=== PATIENT | male | born 1940 | race Caucasian/White ===

== ENCOUNTER 2016-03-21 13:17 | Observation (INO) | payer OTHER ==
[~2016-03-21] VITALS: Ht 167.6 cm; Wt 100.5 kg
[~2016-03-21 13:17] MED LIST: CARD240C6 PO; CLON.1 PO; DILA100C PO; FURO1TAB93 OR; GLIP5TAB8 PO; LIPI80TA16 PO; LISI-363 PO; METO200T3 PO; OMPR20CCR PO; RIVA20 PO; SUCR1TAB PO
[2016-03-21 13:35] VITALS: BP 110/65; PULSE 64; RESP 20; TEMP 97.9; O2SAT 97
[2016-03-21 15:35] VITALS: BP 121/73; PULSE 64; RESP 18; O2SAT 99
[2016-03-21] MEDS ORDERED: XARE20TA PO (15:50)
[2016-03-21] MEDS ORDERED: ATOR1TAB18 PO (15:50)
[2016-03-21] MEDS ORDERED: GLIP10TA6 PO (15:50)
[2016-03-21] MEDS ORDERED: FURO1TAB60 PO (15:50)
[2016-03-21] MEDS ORDERED: CARD240C6 PO (15:50)
[2016-03-21] MEDS ORDERED: METO200T3 PO (15:50)
[2016-03-21] MEDS ORDERED: LISI-515 PO (15:50)
[2016-03-21] MEDS ORDERED: CLON0.1T PO (15:50)
[2016-03-21] MEDS ORDERED: INSU100V3 SQ (15:50)
[2016-03-21] MEDS ORDERED: DILA100C PO (15:50)
--- NOTE | 2016-03-21 16:00 | PD ---
HPI Chief Complaint: Cardiac Complaint Time Seen by Provider: 15:49 Travel History International Travel<30 days: No Contact w/Intl Traveler<30days: No Traveled to known affect area: No History of Present Illness HPI This 75-year-old male is complaining of ankle edema and shortness of breath. He has been seeing a urologist for some blood in his urine. Today he saw the urologist and the urologist noted that the patient had considerable swelling of the ankles. She recommended that the patient should be evaluated so he has presented here. The patient has a history of cardiomyopathy and congestive heart failure. He has had multiple ablations flutter fibrillation. He says that he been in fibrillation again since just before . He was scheduled to have another ablation with Dr. Myrick on 19 March but was canceled He has noted dyspnea on exertion and over the last 2 weeks she has had increasing swelling in his ankles he has not had any chest pain. He does have a history of diabetes and his doctor recently and his doctor started him on insulin shots just today. 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 Patient is on metoprolol and Lasix. He is on Xarelto for his atrial fibrillation PFSH Past Medical History Hx Anticoagulant Therapy: Yes Arthritis: Yes (thumbs;knee caps) Asthma: No Autoimmune Disease: No Blood Disorders: No Anxiety: No Depression: No Heart Rhythm Problems: Yes Cancer: No Cardiac Catheterization: Yes (STENT X 3 CAN'T REMEMBER DATE.) Cardiovascular Problems: Yes High Cholesterol: Yes Chemotherapy: No Chest Pain: No Congestive Heart Failure: No COPD: No Cerebrovascular Accident: Yes (CVA) Diabetes: Yes Patient Takes Glucophage: No Diminished Hearing: Yes (WEARS RIGHT HEARING AID) Endocrine: Yes Gastrointestinal Disorders: Yes (GALLSTONES) GERD: Yes Glaucoma: No Genitourinary: No Headaches: No Hepatitis: No Hiatal Hernia: No Hypertension: Yes Immune Disorder: No Implanted Vascular Access Dvce: Yes Kidney Stones: No Musculoskeletal: Yes Neurologic: No Psychiatric: No Reproductive: No Respiratory: No Immunizations Current: Yes Migraines: No Myocardial Infarction: Yes Radiation Therapy: No Renal Failure: No Seizures: Yes Sickle Cell Disease: No Sleep Apnea: No Thyroid Disease: No Ulcer: No Influenza Vaccination: Yes PNEUMOCCOCAL Vaccine (Year): 1 Past Surgical History Abdominal Surgery: Yes (cholecystectomy) AICD: Yes Appendectomy: No Arteriovenous Shunt: No Cardiac Surgery: Yes (pacemaker;defibillator;stents) Cholecystectomy: Yes Coronary Stent: Yes (1995 /pacer placed 2 yr ago) Ear Surgery: No Endocrine Surgery: No Eye Surgery: Yes (right eye detached retina repair;right eye cataract removal) Genitourinary Surgery: Yes (penile implantation and removal) Gynecologic Surgery: No Insulin Pump: No Joint Replacement: No Neurologic Surgery: Yes (BRAIN SURGERY FOR ABSCESS 1987) Oral Surgery: No Pacemaker: Yes Thoracic Surgery: No Other Surgery: Yes (BRAIN ABSCESS 1987) Social History Alcohol Use: Yes (occ) Tobacco Use: No Substance Use: No Allergies-Medications (Allergen,Severity, Reaction): Coded Allergies: No Known Allergies (Verified , 03/21/16) Reported Meds & Prescriptions Reported Meds & Active Scripts Active Reported Clonidine (Clonidine HCl) 0.1 Mg Tab 0.1 Mg PO BID Dilantin (Phenytoin Extended) 100 Mg Cap 500 Mg PO BID Humulin N Inj (Insulin Human NPH) 1,000 Unit/10 Ml Vial 5 Units SQ BID Xarelto (Rivaroxaban) 20 Mg Tab 20 Mg PO DAILY Metoprolol Succinate ER 24 HR (Metoprolol Succinate) 200 Mg Tab 200 Mg PO DAILY Lisinopril 20 Mg Tab 20 Mg PO DAILY Glipizide 10 Mg Tab 10 Mg PO BIDAC Take 30 minutes before a meal Lasix (Furosemide) 40 Mg Tab 40 Mg PO DAILY Cardizem CD 24 HR (Diltiazem CD 24 HR) 240 Mg Caper 240 Mg PO DAILY Atorvastatin (Atorvastatin Calcium) 80 Mg Tab 80 Mg PO HS Review of Systems General / Constitutional: No: Fever, Chills Eyes: No: Diploplia, Blurred Vision HENT: No: Headaches, Vertigo Cardiovascular: Positive: Irregular Rhythm, No: Chest Pain or Discomfort Respiratory: Positive: Shortness of Breath Gastrointestinal: No: Vomiting, Diarrhea Physical Exam Narrative GENERAL: Well-developed male SKIN: Warm and dry. HEAD: Atraumatic. Normocephalic. EYES: Pupils equal and round. No scleral icterus. No injection or drainage. ENT: No nasal bleeding or discharge. Mucous membranes pink and moist. NECK: Trachea midline. No JVD. CARDIOVASCULAR: Regular rate and rhythm. No murmur appreciated. RESPIRATORY: No accessory muscle use. He has bibasilar rales GASTROINTESTINAL: Abdomen soft, non-tender, nondistended. Hepatic and splenic margins not palpable. MUSCULOSKELETAL: No obvious deformities. No clubbing. No cyanosis. Bilateral pedal edema NEUROLOGICAL: Awake and alert. No obvious cranial nerve deficits. Motor grossly within normal limits. Normal speech. PSYCHIATRIC: Appropriate mood and affect; insight and judgment normal. Data Data Last Documented VS Vital Signs Date Time Temp Pulse Resp B/P Pulse Ox O2 Delivery O2 Flow Rate FiO2 03/21/16 15:35 64 18 121/73 99 Room Air 03/21/16 13:35 97.9 Orders Electrocardiogram (03/21/16 15:49) Complete Blood Count With Diff (03/21/16 15:49) Comprehensive Metabolic Panel (03/21/16 15:49) B-Type Natriuretic Peptide (03/21/16 15:49) Urinalysis - C+S If Indicated (03/21/16 15:49) Chest, Single Ap (03/21/16 15:49) MDM Medical Decision Making Medical Screen Exam Complete: Yes Emergency Medical Condition: Yes Medical Record Reviewed: Yes Differential Diagnosis Differential includes CHF, edema, dysrhythmia Narrative Course X-ray and lab work are pending at this time. I suspect patient will need adjustment of his diuretic dose Timothy Kent MD Mar 21, 2016 16:00
[2016-03-21 16:13] LABS: AUTOMATED NEUTROPHIL # 5.5 TH/MM3 (1.8-7.7); BASOPHIL % 0.3 % (0.0-2.0); EOSINOPHIL # 0.1 TH/MM3 (0-0.4); EOSINOPHIL % 1.2 % (0.0-4.0); HEMATOCRIT 33.9 % (39.0-51.0); HEMO FLAGS DIFF FINAL; LYMPH % 17.6 % (9.0-44.0); LYMPHOCYTE # 1.3 TH/MM3 (1.0-4.8); MEAN CORPUSCULAR HEMOGLOBIN 25.9 PG (27.0-34.0); MEAN CORPUSCULAR HGB CONC 32.3 % (32.0-36.0); MONO % 9.6 % (0.0-8.0); NEUT % 71.3 % (16.0-70.0); PLATELET COUNT 142 TH/MM3 (150-450); RED BLOOD COUNT 4.23 MIL/MM3 (4.50-5.90); RED CELL DISTRIBUTION WIDTH 17.6 % (11.6-17.2); WHITE BLOOD COUNT 7.6 TH/MM3 (4.0-11.0)
[2016-03-21 16:20] LABS: CHLORIDE 103 MEQ/L (98-107); POTASSIUM 4.3 MEQ/L (3.5-5.1); SODIUM (NA) 141 MEQ/L (136-145)
[2016-03-21 16:24] LABS: ANION GAP 7 MEQ/L (5-15); BICARBONATE 30.9 MEQ/L (21.0-32.0); BLOOD UREA NITROGEN 19 MG/DL (7-18)
[2016-03-21 16:27] LABS: ALT (GPT) 41 U/L (12-78); AST (GOT) 32 U/L (15-37); GLOMERULAR FILTRATION RATE 45 ML/MIN (>89)
[2016-03-21 16:29] LABS: TOTAL BILIRUBIN ADULT 0.5 MG/DL (0.2-1.0)
[2016-03-21 16:30] LABS: ALKALINE PHOSPHATASE 104 U/L (45-117)
--- NOTE | 2016-03-21 16:38 | RADHPO ---
EXAM DATE/TIME: 03/21/2016 16:13 [facility] COMPARISON: CHEST SINGLE AP, March 21, 2013, 19:56. INDICATIONS : Patient states shortness of breath. MEDICAL HISTORY : Hypercholesterolemia. Diabetes mellitus type II. Cardiovascular disease. A-Fib SURGICAL HISTORY : Pacemaker. ENCOUNTER: Initial ACUITY: 1 day PAIN SCORE: 5/10 LOCATION: Bilateral chest FINDINGS: The heart is enlarged. There is a transvenous pacer in good position. There is mild blunting of the c ardiophrenic sulcus on the left. This is stable compared to previous exam. The lungs are otherwise cl ear. The bony structures are intact. CONCLUSION: 1. Mild cardiomegaly. No acute abnormality. Damián Roberts MD on March 21, 2016 at 16:36 Board Certified Radiologist. This report was verified electronically.
--- NOTE | 2016-03-21 17:40 | PD ---
Physical Exam Narrative Patient signed out to me by Dr. Kent to follow-up labs and disposition. Please see his note for complete history and physical details. Briefly, patient has noticed an increase in swelling of his legs as well as his dyspnea on exertion for the past week. He tried to get into see his primary doctor today, but was unable to and was told to come to the emergency department. He has extensive cardiac history with cardiomyopathy and an AICD in place. He reports compliance with his medications, but does not feel they're working. Exam shows large edema of the bilateral lower extremities. Data Data Last Documented VS Vital Signs Date Time Temp Pulse Resp B/P Pulse Ox O2 Delivery O2 Flow Rate FiO2 03/21/16 15:35 64 18 121/73 99 Room Air 03/21/16 13:35 97.9 Orders Electrocardiogram (03/21/16 15:49) Complete Blood Count With Diff (03/21/16 15:49) Comprehensive Metabolic Panel (03/21/16 15:49) B-Type Natriuretic Peptide (03/21/16 15:49) Urinalysis - C+S If Indicated (03/21/16 15:49) Chest, Single Ap (03/21/16 15:49) Furosemide Inj (Lasix Inj) (03/21/16 17:45) Admit Order (Ed Use Only) (03/21/16 ) Place In Observation (03/21/16 ) Vital Signs (Adult) Q4H (03/21/16 17:46) Activity Oob With Assistance (03/21/16 17:46) ^ Wildlife Veterinarian / Telemetry .CONTINUOUS (03/21/16 17:46) Intake + Output BONNIE.QSHIFT (03/21/16 17:46) Sodium Chloride 0.9% Flush (Ns Flush) (03/21/16 18:00) Sodium Chloride 0.9% Flush (Ns Flush) (03/21/16 21:00) Acetaminophen (Tylenol) (03/21/16 18:00) Ondansetron Inj (Zofran Inj) (03/21/16 18:00) Magnesium Hydroxide Liq (Milk Of Magnesi (03/21/16 18:00) Basic Metabolic Panel (Bmp) (03/22/16 06:00) Pt Request For Service (03/21/16 17:46) Scd Bilateral/Knee High BONNIE.BID (03/21/16 17:46) Braxton Bilateral/Knee High BONNIE.QSHIFT (03/21/16 17:46) Naloxone Inj (Narcan Inj) (03/21/16 18:00) Phenytoin (Dilantin) (03/21/16 16:00) Labs Laboratory Tests Test 03/21/16 16:00 White Blood Count 7.6 TH/MM3 Red Blood Count 4.23 MIL/MM3 Hemoglobin 10.9 GM/DL Hematocrit 33.9 % Mean Corpuscular Volume 80.0 FL Mean Corpuscular Hemoglobin 25.9 PG Mean Corpuscular Hemoglobin 32.3 % Concent Red Cell Distribution Width 17.6 % Platelet Count 142 TH/MM3 Mean Platelet Volume 8.3 FL Neutrophils (%) (Auto) 71.3 % Lymphocytes (%) (Auto) 17.6 % Monocytes (%) (Auto) 9.6 % Eosinophils (%) (Auto) 1.2 % Basophils (%) (Auto) 0.3 % Neutrophils # (Auto) 5.5 TH/MM3 Lymphocytes # (Auto) 1.3 TH/MM3 Monocytes # (Auto) 0.7 TH/MM3 Eosinophils # (Auto) 0.1 TH/MM3 Basophils # (Auto) 0.0 TH/MM3 CBC Comment DIFF FINAL Differential Comment Sodium Level 141 MEQ/L Potassium Level 4.3 MEQ/L Chloride Level 103 MEQ/L Carbon Dioxide Level 30.9 MEQ/L Anion Gap 7 MEQ/L Blood Urea Nitrogen 19 MG/DL Creatinine 1.50 MG/DL Estimat Glomerular Filtration 45 ML/MIN Rate Random Glucose 133 MG/DL Calcium Level 8.7 MG/DL Total Bilirubin 0.5 MG/DL Aspartate Amino Transf 32 U/L (AST/SGOT) Alanine Aminotransferase 41 U/L (ALT/SGPT) Alkaline Phosphatase 104 U/L B-Type Natriuretic Peptide 274 PG/ML Total Protein 6.9 GM/DL Albumin 3.5 GM/DL Phenytoin (Dilantin) Level 0.7 MCG/ML MDM Supervised Visit with KATERYNA: No Narrative Course Chest x-ray shows cardiomegaly. BMP essentially elevated in the 200s. Based on patient's symptoms of increased swelling of his legs as well as shortness of breath on exertion, I'm concerned he is having a CHF exacerbation. His creatinine is elevated to 1.5. This makes diuresis difficult. I believe the patient would benefit with an observation stay to figure out the best course of diuresis and kidney protection for him. Patient is agreeable to this. Patient placed in observation. Diagnosis Primary Impression: CHF exacerbation Qualified Code: I50.23 - Acute on chronic systolic congestive heart failure Additional Impression: NARCISO (acute kidney injury) Admitting Information Admitting Physician Requests: Observation Vickie Maciel MD Mar 21, 2016 17:40
[2016-03-21] MEDS ORDERED: FUROSEMIDE 20 MG/2 ML VIAL IV PUSH ONE (17:45)
[2016-03-21] MEDS ORDERED: DEXTROSE 50% IN WATER 50 ML VIAL(D50) IV PUSH PRN (18:00)
[2016-03-21] MEDS ORDERED: SODIUM CHLORIDE 0.9% FLUSH 5 ML FLUSH FLUSH PRN (18:00)
[2016-03-21] MEDS ORDERED: ONDANSETRON HCL 4 MG/2 ML VIAL IVP PRN (18:00)
[2016-03-21] MEDS ORDERED: MAGNESIUM HYDROXIDE SUSP 30 ML CUP PO PRN (18:00)
[2016-03-21] MEDS ORDERED: NALOXONE HCL 0.4 MG/ML AMP IV PRN (18:00)
[2016-03-21] MEDS ORDERED: ACETAMINOPHEN 325 MG TAB PO PRN (18:00)
[2016-03-21] MEDS ORDERED: GLUCAGON 1 MG/ML VIAL OTHER PRN (18:00)
[2016-03-21 18:10] VITALS: BP 116/67; PULSE 60; RESP 18; O2SAT 98
[2016-03-21 20:00] VITALS: BP 116/70; PULSE 60; RESP 20; TEMP 96.3; O2SAT 96
[2016-03-21] MEDS: INSULIN ASPART SUPPLEMENTAL SCALE SQ SCH (20:41)
[2016-03-21] MEDS: cloNIDine HCL 0.1 MG TAB PO SCH (20:43)
[2016-03-21] MEDS: PHENYTOIN SODIUM 100 MG CAP PO SCH (20:43)
[2016-03-21] MEDS: SODIUM CHLORIDE 0.9% FLUSH 5 ML FLUSH FLUSH SCH (20:44)
[2016-03-21 20:47] LABS: BLOOD, URINE NEG (NEG); GLUCOSE,URINE NEG (NEG); KETONE, URINE NEG (NEG); NITRITE,URINE NEG (NEG)
[2016-03-21 20:52] LABS: COMMENT (UR) CULT NOT INDICATED; CULTURE IF INDICATED CULT NOT INDICATED; RBC, URINE 0-2 /hpf (0-3); SQUAMOUS EPITHELIAL CELL URINE 0-5 /hpf (0-5); URINE COLOR YELLOW (YELLW/STRAW); WBC, URINE 0-2 /hpf (0-5)
[2016-03-21] MEDS ORDERED: ATORVASTATIN 40 MG TAB PO SCH (21:00)
[2016-03-22] VITALS: BP 116/75; PULSE 63; RESP 20; TEMP 95.9; O2SAT 99
[2016-03-22 04:00] VITALS: BP 116/72; PULSE 60; RESP 20; TEMP 96.3; O2SAT 97
[2016-03-22 05:40] LABS: POTASSIUM 4.3 MEQ/L (3.5-5.1)
[2016-03-22 05:45] LABS: BICARBONATE 30.7 MEQ/L (21.0-32.0)
[2016-03-22] MEDS: INSULIN ASPART SUPPLEMENTAL SCALE SQ SCH ×2 (06:13→11:33)
[2016-03-22 08:00] VITALS: BP 129/70; PULSE 59; PULSE 60; RESP 18; TEMP 97.8; O2SAT 97
[2016-03-22] MEDS ORDERED: RIVAROXABAN 20 MG TAB PO SCH (09:00)
[2016-03-22] MEDS ORDERED: LISINOPRIL 20 MG TAB PO SCH (09:00)
[2016-03-22] MEDS ORDERED: FUROSEMIDE 40 MG TAB PO SCH (09:00)
[2016-03-22] MEDS ORDERED: METOPROLOL SUCCINATE 50 MG EXTENDED RELEASE TAB PO SCH (09:00)
[2016-03-22] MEDS ORDERED: DILTIAZEM-CD 240 MG CAP ER PO SCH (09:00)
[2016-03-22] MEDS: PHENYTOIN SODIUM 100 MG CAP PO SCH (09:27)
[2016-03-22] MEDS: cloNIDine HCL 0.1 MG TAB PO SCH (09:27)
[2016-03-22] MEDS: SODIUM CHLORIDE 0.9% FLUSH 5 ML FLUSH FLUSH SCH (09:30)
[2016-03-22] MEDS ORDERED: METOLAZONE 5 MG TAB PO ONE (10:15)
[2016-03-22] MEDS ORDERED: FUROSEMIDE 40 MG/4 ML VIAL IV PUSH ONE (10:15)
[2016-03-22] MEDS ORDERED: METOLAZONE 2.5 MG TAB PO ONE (10:15)
--- NOTE | 2016-03-22 10:58 | HHI.HP ---
[facility] Teja Beach Do, MD Admission Diagnosis CHF exacerbation Diagnoses: Travel History International Travel<30 Days: No Contact w/Intl Traveler <30 Da: No Traveled to Known Affected Are: No History of Present Illness This is a pleasant 75-year-old male with past medical history coronary artery disease and CHF who is followed by Dr. Echavarria. He states over the past week he said increasing pedal edema and that over the past several days he's noticed that he gets dyspneic with walking long distances. For this reason he came to the ER. The patient takes Lasix 40 mg daily and states he has been compliant with that. However he states that he drinks 7 bottles of water a day and does not weigh himself daily. He does eat a low- salt diet. The patient received a small amount of IV Lasix 20 mg in the ER and this morning he states he feels back to baseline. Of note his chest x-ray showed no evidence of pulmonary edema. The patient does not use KASHMIR hose or elevate his legs. 10 point review of systems otherwise negative. Past Family Social History Past Medical History Diverticulitis Coronary artery disease Atrial fibrillation Diabetes mellitus type 2 Hyperlipidemia History of brain abscess status post craniotomy CHF Past Surgical History Craniotomy, pacemaker, right eye surgery, cholecystectomy, ablation 2, cardiac stents 6 Reported Medications Allergies Coded Allergies Type Severity Reaction Last Updated Verified No Known Allergies 03/21/16 Yes Active Scripts Medications Dose Route/Sig Days Date Category Dose Instructions Clonidine (Clonidine HCl) 0.1 Mg Tab 0.1 Mg PO BID 03/21/16 Reported Dilantin (Phenytoin Extended) 100 Mg Cap 500 Mg PO BID 03/21/16 Reported Humulin N Inj (Insulin Human NPH) 1,000 Unit/10 Ml Vial 5 Units SQ BID 03/21/16 Reported Xarelto (Rivaroxaban) 20 Mg Tab 20 Mg PO DAILY 03/21/16 Reported Metoprolol Succinate ER 24 HR (Metoprolol Succinate) 200 Mg Tab 200 Mg PO DAILY 03/21/16 Reported Lisinopril 20 Mg Tab 20 Mg PO DAILY 03/21/16 Reported Glipizide 10 Mg Tab 10 Mg PO BIDAC 03/21/16 Reported Take 30 minutes before a meal Lasix (Furosemide) 40 Mg Tab 40 Mg PO DAILY 03/21/16 Reported Cardizem CD 24 HR (Diltiazem CD 24 HR) 240 Mg Caper 240 Mg PO DAILY 03/21/16 Reported Atorvastatin (Atorvastatin Calcium) 80 Mg Tab 80 Mg PO HS 03/21/16 Reported Allergies: Coded Allergies: No Known Allergies (Verified , 03/21/16) Family History Reviewed and noncontributory Social History No alcohol tobacco or current drug use Physical Exam Vital Signs Vital Signs Date Time Temp Pulse Resp B/P Pulse Ox O2 Delivery O2 Flow Rate FiO2 03/22/16 08:00 97.8 59 18 129/70 97 03/22/16 08:00 60 03/22/16 04:00 96.3 60 20 116/72 97 03/22/16 00:00 95.9 63 20 116/75 99 03/21/16 20:00 60 03/21/16 20:00 96.3 60 20 116/70 96 03/21/16 18:10 60 18 116/67 98 Room Air 03/21/16 15:35 64 18 121/73 99 Room Air 03/21/16 15:35 99 Room Air 03/21/16 13:35 97.9 64 20 110/65 97 Physical Exam GENERAL: Well-nourished, well-developed very pleasant male patient. SKIN: Warm and dry. HEAD: Normocephalic. EYES: No scleral icterus. No injection or drainage. NECK: Supple, trachea midline. No JVD or lymphadenopathy. CARDIOVASCULAR: Regular rate and rhythm without murmurs, gallops, or rubs. RESPIRATORY: Breath sounds equal bilaterally. No accessory muscle use. GASTROINTESTINAL: Abdomen soft, non-tender, nondistended. EXTREMITIES: 1+ pedal edema edema. NEUROLOGICAL: Awake, alert, and oriented x 3. Non-focal. Laboratory Laboratory Tests Test 03/21/16 03/21/16 03/22/16 16:00 20:15 05:08 White Blood Count 7.6 Red Blood Count 4.23 Hemoglobin 10.9 Hematocrit 33.9 Mean Corpuscular Volume 80.0 Mean Corpuscular Hemoglobin 25.9 Mean Corpuscular Hemoglobin 32.3 Concent Red Cell Distribution Width 17.6 Platelet Count 142 Mean Platelet Volume 8.3 Neutrophils (%) (Auto) 71.3 Lymphocytes (%) (Auto) 17.6 Monocytes (%) (Auto) 9.6 Eosinophils (%) (Auto) 1.2 Basophils (%) (Auto) 0.3 Neutrophils # (Auto) 5.5 Lymphocytes # (Auto) 1.3 Monocytes # (Auto) 0.7 Eosinophils # (Auto) 0.1 Basophils # (Auto) 0.0 CBC Comment DIFF FINAL Differential Comment Sodium Level 141 141 Potassium Level 4.3 4.3 Chloride Level 103 102 Carbon Dioxide Level 30.9 30.7 Anion Gap 7 8 Blood Urea Nitrogen 19 19 Creatinine 1.50 1.30 Estimat Glomerular Filtration 45 54 Rate Random Glucose 133 118 Calcium Level 8.7 8.6 Total Bilirubin 0.5 Aspartate Amino Transf 32 (AST/SGOT) Alanine Aminotransferase 41 (ALT/SGPT) Alkaline Phosphatase 104 B-Type Natriuretic Peptide 274 Total Protein 6.9 Albumin 3.5 Phenytoin (Dilantin) Level 0.7 Urine Color YELLOW Urine Turbidity CLEAR Urine pH 6.0 Urine Specific [place] 1.013 Urine Protein NEG Urine Glucose (UA) NEG Urine Ketones NEG Urine Occult Blood NEG Urine Nitrite NEG Urine Bilirubin NEG Urine Leukocyte Esterase NEG Urine RBC 0-2 Urine WBC 0-2 Urine Squamous Epithelial 0-5 Cells Urine Bacteria NONE Microscopic Urinalysis Comment CULT NOT INDICATED Result Diagram: 03/21/16 1600 03/22/16 0508 Assessment and Plan Assessment and Plan CHF with mild exacerbation. Patient is not compliant with fluid restriction or wearing KASHMIR hose. He's received small amount of IV Lasix and is stable on room air. Chest x-ray is clear. Patient was counseled on fluid restricting to less than 60 ounces per day, low-salt diet, wearing KASHMIR hose, weighing himself daily. Patient is instructed to follow-up with his television repairman Dr. Echavarria in next week. The patient states he is supposed to have an ablation in the next couple of weeks with Dr. Fay is well. For the rest of his chronic medical conditions he will continue home medications. Diverticulitis Coronary artery disease Atrial fibrillation Diabetes mellitus type 2 Hyperlipidemia History of brain abscess status post craniotomy Yudith Forrester MD Mar 22, 2016 10:58
[2016-03-22 12:00] VITALS: BP 100/71; PULSE 60; RESP 18; TEMP 97; O2SAT 97
--- NOTE | 2016-03-22 15:22 | EKG ---
Date Performed: 03/21/2016 Time Performed: 15:44:56 PTAGE: 75 years EKG: Ectopic atrial rhythm RBBB with left anterior fascicular block Nonspecific ST-T wave change s Abnormal ECG PREVIOUS TRACING : 08/21/2015 01.33 Since previous tracing, likely no significant change noted DOCTOR: Barbra Echavarria Interpretating Date/Time 03/22/2016 15:22:11
== END 2016-03-22 14:23 | disposition home or self-care (01) ==
LOC: PHED 13:17 → PHEDA 17:47 → PH3B 19:47
PROVIDERS: ADMIT Family Medicine; ATTEND Family Medicine
DX: I11.0 Hypertensive heart disease with heart failure (principal); I50.9 Heart failure, unspecified; I42.9 Cardiomyopathy, unspecified; I25.10 Atherosclerotic heart disease of native coronary artery without angina pectoris; I48.91 Unspecified atrial fibrillation; I25.2 Old myocardial infarction; E11.9 Type 2 diabetes mellitus without complications; E78.00 Pure hypercholesterolemia, unspecified; E78.5 Hyperlipidemia, unspecified; K57.90 Diverticulosis of intestine, part unspecified, without perforation or abscess without bleeding; R60.9 Edema, unspecified; R06.00 Dyspnea, unspecified; N17.9 Acute kidney failure, unspecified; R31.9 Hematuria, unspecified; R56.9 Unspecified convulsions; Z86.61 Personal history of infections of the central nervous system; Z86.73 Personal history of transient ischemic attack (TIA), and cerebral infarction without residual deficits; Z95.5 Presence of coronary angioplasty implant and graft; Z95.810 Presence of automatic (implantable) cardiac defibrillator; Z79.01 Long term (current) use of anticoagulants; Z79.899 Other long term (current) drug therapy
CPT/HCPCS: 71010; 80048; 80053; 80185; 81001; 82948; 83880; 85025; 93005; 97162; 99285; G0378; G8987; G8988; J1815; J1940

== ENCOUNTER 2016-04-08 13:45 | Day surgery (SDC) | payer OTHER ==
[~2016-04-08] VITALS: Ht 172.7 cm; Wt 95.4 kg
[~2016-04-08 13:45] MED LIST changes: +ATOR1TAB18 PO; -CLON.1 PO; +CLON0.1T PO; +FURO1TAB60 PO; -FURO1TAB93 OR; +GLIP10TA6 PO; -GLIP5TAB8 PO; +INSU100V3 SQ; -LIPI80TA16 PO; -LISI-363 PO; +LISI-515 PO; -OMPR20CCR PO; -RIVA20 PO; -SUCR1TAB PO; +XARE20TA PO
[2016-04-08 14:46] VITALS: BP 117/88; PULSE 85; RESP 18; TEMP 97.4; O2SAT 96
[2016-04-08] MEDS ORDERED: CLON0.2T PO (15:00)
[2016-04-08] MEDS ORDERED: LEVE500T8 PO (15:00)
[2016-04-08] MEDS ORDERED: POTA-245 PO (15:00)
[2016-04-08] MEDS ORDERED: NITR1SUB3 SL (15:00)
[2016-04-08] MEDS ORDERED: CARD180C5 PO (15:00)
[2016-04-08] MEDS ORDERED: DIGO0.12 PO (15:00)
[2016-04-08] MEDS ORDERED: GLIP5TAB8 PO (15:00)
[2016-04-08] MEDS ORDERED: OMEP20TA PO (15:00)
[2016-04-08] MEDS ORDERED: MULT1TAB84 PO (15:00)
[2016-04-08 15:24] LABS: AUTOMATED NEUTROPHIL # 5.9 TH/MM3 (1.8-7.7); BASOPHIL # 0.1 TH/MM3 (0-0.2); BASOPHIL % 0.7 % (0.0-2.0); EOSINOPHIL # 0.1 TH/MM3 (0-0.4); EOSINOPHIL % 0.8 % (0.0-4.0); HEMATOCRIT 39.1 % (39.0-51.0); HEMO FLAGS DIFF FINAL; LYMPH % 20.1 % (9.0-44.0); LYMPHOCYTE # 1.7 TH/MM3 (1.0-4.8); MEAN CELL VOLUME 79.8 FL (80.0-100.0); MEAN CORPUSCULAR HEMOGLOBIN 25.5 PG (27.0-34.0); MEAN CORPUSCULAR HGB CONC 31.9 % (32.0-36.0); MONO % 9.8 % (0.0-8.0); NEUT % 68.6 % (16.0-70.0); PLATELET COUNT 176 TH/MM3 (150-450); RED CELL DISTRIBUTION WIDTH 17.9 % (11.6-17.2); WHITE BLOOD COUNT 8.6 TH/MM3 (4.0-11.0)
[2016-04-08 15:36] LABS: APTT (PATIENT) 25.6 SEC (24.3-30.1); PROTHROMBIN TIME - PATIENT 11.4 SEC (9.8-11.6)
[2016-04-08 15:50] LABS: BICARBONATE 30.2 MEQ/L (21.0-32.0)
[2016-04-08] MEDS ORDERED: ISOPROTERENOL HCL 1 MG/5 ML AMP ONE (17:31)
[2016-04-08] MEDS ORDERED: HEPARIN-D5W INJ 250 ML ONE (17:31)
[2016-04-08] MEDS ORDERED: PROTAMINE SULFATE 50 MG/5 ML VIAL ONE (17:31)
[2016-04-08] MEDS ORDERED: fentaNYL CITRATE 250 MCG/5 ML AMP ONE (17:31)
[2016-04-08] MEDS ORDERED: HEPARIN SODIUM - IV 10,000 UNITS/10 ML VIAL ONE (17:32)
[2016-04-08] MEDS ORDERED: PROPOFOL 200 MG/20 ML AMP IV ONE (17:43)
[2016-04-08] MEDS ORDERED: SODIUM CHLORID 0.9% 500 ML BAG IV ONE (17:43)
[2016-04-08] MEDS ORDERED: LEVOFLOXACIN 500 MG PREMIX INJ 100 ML IV ONE (17:48)
[2016-04-08] MEDS ORDERED: HEPARIN-NS/PF INJ 500 ML ONE (17:50)
[2016-04-08] MEDS ORDERED: FUROSEMIDE 40 MG/4 ML VIAL ONE (20:35)
[2016-04-08] MEDS ORDERED: ONDANSETRON HCL 4 MG/2 ML VIAL IV PRN (20:45)
[2016-04-08] MEDS ORDERED: SODIUM CHLOR 0.9% 250 ML INJ 250 ML IV PRN (20:45)
[2016-04-08] MEDS ORDERED: ATROPINE SULFATE 1 MG/ML VIAL IV PRN (20:45)
[2016-04-08] MEDS ORDERED: oxyCODONE/ACETAMINOPHEN 5 MG/325 MG TAB PO PRN (20:45)
[2016-04-08] MEDS ORDERED: BACITRACIN OINT 0.9 GM PKT TOP ONE (20:45)
[2016-04-08] MEDS ORDERED: METOCLOPRAMIDE HCL 10 MG/2 ML VIAL IV PRN (20:45)
[2016-04-08] MEDS ORDERED: LORazepam 2 MG/ML VIAL IV PRN (20:45)
[2016-04-08] MEDS ORDERED: LIDOCAINE HCL 1% 50 ML VIAL INFIL PRN (20:45)
[2016-04-08] MEDS: cloNIDine HCL 0.2 MG TAB PO SCH (21:00)
[2016-04-08] MEDS ORDERED: ATORVASTATIN 80 MG TAB PO SCH (21:00)
[2016-04-08] MEDS ORDERED: DO NOT ADM ANY ANTICOAGULANT DRUGS XX PRN (21:30)
[2016-04-08] MEDS ORDERED: LEVOFLOXACIN 500 MG PREMIX INJ 100 ML IV PRN (21:30)
[2016-04-08] MEDS ORDERED: SUGAMMADEX SODIUM 200 MG/2 ML VIAL IV PUSH ONE ×2 (21:35)
[2016-04-08 22:36] VITALS: BP 123/73; PULSE 59; RESP 18; TEMP 97.7; O2SAT 98
[2016-04-08 23:00] VITALS: BP 142/83; PULSE 65; RESP 18; TEMP 97.4; O2SAT 97
[2016-04-08] MEDS: POTASSIUM CHLORIDE 20 MEQ CONTROLLED RELEASE TAB PO SCH (23:24)
[2016-04-08] MEDS: levETIRAcetam 500 MG TAB PO SCH (23:25)
[2016-04-08] MEDS: AMIODARONE 200 MG TAB PO SCH (23:25)
[2016-04-08 23:26] VITALS: BP 136/76; PULSE 65; RESP 18; TEMP 98.2; O2SAT 97
[2016-04-08] MEDS: INSULIN HUMAN NPH 1,000 UNITS/10 ML VIAL SQ SCH (23:26)
[2016-04-08] MEDS: oxyCODONE/ACETAMINOPHEN 5 MG/325 MG TAB PO PRN (23:26)
[2016-04-08] MEDS: RIVAROXABAN 20 MG TAB PO SCH (23:33)
[2016-04-09] VITALS: BP 131/77; PULSE 61; RESP 18; TEMP 97.7; O2SAT 98
[2016-04-09 00:26] VITALS: BP 130/80; PULSE 60; RESP 18; TEMP 97.4; O2SAT 98
[2016-04-09 04:01] VITALS: BP 106/54; PULSE 70; RESP 18; TEMP 97.9; O2SAT 99
[2016-04-09] MEDS: oxyCODONE/ACETAMINOPHEN 5 MG/325 MG TAB PO PRN (04:46)
[2016-04-09] MEDS ORDERED: AMIO200T PO ×2 (07:49)
[2016-04-09 08:00] VITALS: BP 126/68; PULSE 65; RESP 20; TEMP 98.5; O2SAT 98
[2016-04-09] MEDS ORDERED: glipiZIDE 5 MG TAB PO SCH (08:00)
--- NOTE | 2016-04-09 08:14 | PD.CARD.PN ---
Subjective Subjective Remarks Feels ok Objective Medications Current Medications Medications (Trade) Dose Ordered Sig/Jaz Route Start Time Stop Time Status Last Admin (Percocet 5-325 Mg) 1 tab Q4H PRN PO 04/08/16 20:45 04/09/16 04:46 (Percocet 5-325 Mg) 2 tab Q4H PRN PO 04/08/16 20:45 (Ativan Inj) 0.5 mg UNSCH PRN IV 04/08/16 20:45 04/09/16 20:44 Atropine Sulfate 0.5 mg 0.5 mg UNSCH PRN IV 04/08/16 20:45 (NS 250 ml Inj) 250 ml @ 500 mls/hr ONCE PRN IV 04/08/16 20:45 04/09/16 20:44 (Reglan Inj) 10 mg Q4H PRN IV 04/08/16 20:45 (Zofran Inj) 4 mg Q4H PRN IV 04/08/16 20:45 (Xylocaine 1% Inj (50 ml)) 10 ml UNSCH PRN INFIL 04/08/16 20:45 04/09/16 20:44 (Lipitor) 80 mg HS PO 04/08/16 21:00 04/08/16 23:24 (Catapres) 0.2 mg BID PO 04/08/16 21:00 (Lasix) 40 mg DAILY PO 04/09/16 09:00 (Glucotrol) 10 mg DAILY@08 PO 04/09/16 08:00 (NovoLIN N INJ) 5 units BID SQ 04/08/16 21:00 04/08/16 23:26 (Keppra) 500 mg BID PO 04/08/16 21:00 04/08/16 23:25 (Theragran M Tab) 1 tab DAILY PO 04/09/16 09:00 (Protonix) 20 mg DAILY PO 04/09/16 09:00 (KCl) 20 meq Q12HR PO 04/08/16 21:00 04/08/16 23:24 (Xarelto) 20 mg DAILY PO 04/08/16 23:00 04/08/16 23:33 (Toprol Xl) 100 mg DAILY PO 04/09/16 09:00 (Cordarone) 400 mg BID PO 04/08/16 21:00 04/13/16 09:01 04/08/16 23:25 (Cordarone) 200 mg DAILY PO 04/14/16 09:00 Miscellaneous Information ALL NURSING DEPARTME... UNSCH PRN XX 04/08/16 21:30 04/09/16 21:29 Vital Signs / I&O Vital Signs Date Time Temp Pulse Resp B/P Pulse Ox O2 Delivery O2 Flow Rate FiO2 04/09/16 04:01 97.9 70 18 106/54 99 04/09/16 00:26 97.4 60 18 130/80 98 04/09/16 00:00 97.7 61 18 131/77 98 04/08/16 23:26 98.2 65 18 136/76 97 04/08/16 23:00 97.4 65 18 142/83 97 04/08/16 22:36 97.7 59 18 123/73 98 04/08/16 22:20 97.7 63 16 99 Nasal Cannula 3 04/08/16 22:00 60 16 135/77 100 Nasal Cannula 3 04/08/16 21:45 59 16 131/75 100 Nasal Cannula 3 04/08/16 21:30 70 16 123/78 100 Nasal Cannula 3 04/08/16 21:15 94 16 123/77 100 Nasal Cannula 3 04/08/16 21:08 98.1 61 16 120/74 99 Nasal Cannula 3 04/08/16 14:46 97.4 85 18 117/88 96 I/O 04/08/16 04/08/16 04/08/16 04/09/16 04/09/16 04/09/16 07:00 15:00 23:00 07:00 15:00 23:00 Intake Total 1500 ml 480 ml Output Total 110 ml Balance 1390 ml 480 ml Intake Oral 480 ml Other 1500 ml Output Estimated Blood Loss 10 ml Other 100 ml Physical Exam GENERAL: Well-nourished, well-developed patient. SKIN: Warm and dry. Groin sites soft without hematoma or bleeding HEAD: Normocephalic. EYES: No scleral icterus. No injection or drainage. NECK: Supple, trachea midline. No JVD or lymphadenopathy. CARDIOVASCULAR: Regular rate and rhythm without murmurs, gallops, or rubs. RESPIRATORY: Breath sounds equal bilaterally. No accessory muscle use. GASTROINTESTINAL: Abdomen soft, non-tender, nondistended. EXTREMITIES: No cyanosis, or edema. NEUROLOGICAL: Awake, alert, and oriented x 3. Non-focal. Laboratory Laboratory Tests Test 04/08/16 14:25 White Blood Count 8.6 TH/MM3 Red Blood Count 4.90 MIL/MM3 Hemoglobin 12.5 GM/DL Hematocrit 39.1 % Mean Corpuscular Volume 79.8 FL Mean Corpuscular Hemoglobin 25.5 PG Mean Corpuscular Hemoglobin 31.9 % Concent Red Cell Distribution Width 17.9 % Platelet Count 176 TH/MM3 Mean Platelet Volume 8.6 FL Neutrophils (%) (Auto) 68.6 % Lymphocytes (%) (Auto) 20.1 % Monocytes (%) (Auto) 9.8 % Eosinophils (%) (Auto) 0.8 % Basophils (%) (Auto) 0.7 % Neutrophils # (Auto) 5.9 TH/MM3 Lymphocytes # (Auto) 1.7 TH/MM3 Monocytes # (Auto) 0.8 TH/MM3 Eosinophils # (Auto) 0.1 TH/MM3 Basophils # (Auto) 0.1 TH/MM3 CBC Comment DIFF FINAL Differential Comment Prothrombin Time 11.4 SEC Prothromb Time International 1.0 RATIO Ratio Activated Partial 25.6 SEC Thromboplast Time Sodium Level 139 MEQ/L Potassium Level 4.0 MEQ/L Chloride Level 101 MEQ/L Carbon Dioxide Level 30.2 MEQ/L Anion Gap 8 MEQ/L Blood Urea Nitrogen 18 MG/DL Creatinine 1.48 MG/DL Estimat Glomerular Filtration 46 ML/MIN Rate Random Glucose 157 MG/DL Calcium Level 8.8 MG/DL Assessment and Plan Problem List: (1) Atrial fibrillation with rapid ventricular response Assessment and Plan: SR on tele. Continue Xarelto (2) S/P ablation of atrial fibrillation Assessment and Plan: NSR s/p ablation, groin sites stable. DC home, f/u in 3 weeks. Discussed Condition With ALETA pt., RN, Dr. Myrick. Tona Rowland Apr 09, 2016 08:14
[2016-04-09 08:36] LABS: APTT (PATIENT) 24.5 SEC (24.3-30.1); INTERNATIONAL NORMALIZED RATIO 1.2 RATIO; PROTHROMBIN TIME - PATIENT 12.8 SEC (9.8-11.6)
[2016-04-09] MEDS: AMIODARONE 200 MG TAB PO SCH (08:49)
[2016-04-09] MEDS: RIVAROXABAN 20 MG TAB PO SCH (08:51)
[2016-04-09] MEDS: cloNIDine HCL 0.2 MG TAB PO SCH (08:51)
[2016-04-09] MEDS: levETIRAcetam 500 MG TAB PO SCH (08:51)
[2016-04-09] MEDS: INSULIN HUMAN NPH 1,000 UNITS/10 ML VIAL SQ SCH (08:52)
[2016-04-09] MEDS: POTASSIUM CHLORIDE 20 MEQ CONTROLLED RELEASE TAB PO SCH (08:52)
[2016-04-09] MEDS ORDERED: MULTIVITAMINS/MINERALS THERAPEUTIC TAB PO SCH (09:00)
[2016-04-09] MEDS ORDERED: FUROSEMIDE 40 MG TAB PO SCH (09:00)
[2016-04-09] MEDS ORDERED: PANTOPRAZOLE SOD 20 MG DELAYED RELEASE TAB PO SCH (09:00)
[2016-04-09] MEDS ORDERED: METOPROLOL SUCCINATE 50 MG EXTENDED RELEASE TAB PO SCH (09:00)
[2016-04-09] MEDS ORDERED: METOPROLOL SUCCINATE 200 MG PO SCH (09:00)
--- NOTE | 2016-04-09 16:25 | EKG ---
Date Performed: 04/08/2016 Time Performed: 21:58:07 PTAGE: 75 years EKG: ELECTRONIC ATRIAL PACEMAKER RIGHT BUNDLE BRANCH BLOCK LEFT ANTERIOR FASCICULAR BLOCK POSSIB LE ANTERIOR MYOCARDIAL INFARCTION , OF INDETERMINATE AGE ST DEVIATION AND MODERATE T-WAVE ABNORMALITY , CONSIDER LATERAL ISCHEMIA ST DEVIATION AND MODERATE T-WAVE ABNORMALITY, CONSIDER INFERIOR ISCHEMIA Since previous tracing, no significant change noted ABNORMAL ECG PREVIOUS TRACING : 03/21/2016 15.44 DOCTOR: Barbra Echavarria Interpretating Date/Time 04/09/2016 16:24:40
--- NOTE | 2016-04-09 16:27 | EKG ---
Date Performed: 04/09/2016 Time Performed: 05:03:54 PTAGE: 75 years EKG: Sinus rhythm Left axis deviation RBBB with left anterior fascicular block Inferior/lateral ST-T changes may be du e to myocardial ischemia When compared to previous tracing, the patient is not currently Paced. Abnor mal ECG PREVIOUS TRACING : 04/08/2016 21.58 DOCTOR: Barbra Echavarria Interpretating Date/Time 04/09/2016 16:26:09
[2016-04-14] MEDS ORDERED: AMIODARONE 200 MG TAB PO SCH (09:00)
--- NOTE | 2016-05-04 12:49 | PD.CARD ---
Atrial Fibrillation Ablation PROCEDURE DATE: Apr 08, 2016 PROCEDURES PERFORMED: 1. Electrophysiology study on Isuprel infusion 2. CS cannulation 3. 3-D mapping 4. Transseptal approach 5. Right and left heart catheterization 6. Intracardiac echo 7. Radiofrequency ablation of atrial fibrillation 8. Pulmonary vein isolation 9. Posterior wall ablation 10. Mitral valve isolation 11. Mitral line creation 12. Left atrial tachycardia ablation 13. Roof line creation 14. Floor line creation 15. Anterior and posterior ablation 16. Cardioversion INDICATIONS FOR THE PROCEDURE Mr. Bolton is a 76-year-old male with atrial fibrillation referred for electrophysiology study and ablation. The patient is symptomatic and on anticoagulation. The risks, the nature and the benefits of the procedure were clearly stated to him. The risks include pneumothorax, cardiac perforation, stroke, need for open heart surgery and even . The patient understood and agreed to proceed. DESCRIPTION OF THE PROCEDURE IN DETAIL After written informed consent was obtained prior to esophageal echocardiogram, the patient was kept on the table where he was prepped and draped in the usual sterile fashion. Conscious sedation was initiated and maintained throughout the procedure by the anesthesiologist. Once sedation was verified, the right and left inguinal areas were anesthetized with 2% Xylocaine. Using modified Seldinger technique, the left femoral vein was cannulated on three occasions, three guidewires were advanced. Over the wire a 6, 7 and a 10-Comoran Hemaquet were advanced. Then the left femoral artery was cannulated on one occasion, one guidewire was advanced. Over the wire a 4-Comoran Hemaquet was advanced. Then the right femoral vein was cannulated on one occasion, one guidewire was advanced. Over the wire a 8-Comoran Hemaquet was advanced. Then under fluoroscopic guidance through the 6 and 7-Comoran Hemaquet, two 5-Comoran Mohit curved quadripolar electrophysiology catheters were advanced and placed around the His as well as coronary sinus. Basic interval was measured. The patient was in atrial fibrillation. Through the 10-Comoran Hemaquet, a Cordis Jennings AcuNav intracardiac echo catheter was advanced and placed at the right atrium. Multiple view was obtained. There was no pericardial effusion, pulmonary vein was seen, atrial septal was visualized. Then the 8-Comoran Hemaquet in the right femoral vein was exchanged for Agilis transseptal sheath that was placed all the way to the superior vena cava. Through the sheath a Vania needle was advanced, then the sheath, the dilator and the needle were progressed until foci engaged. Once engaged, the needle was advanced. RF was delivered for 2 seconds. I was able to cross into the left atrium. Once the needle crossed, the dilator was advanced. Once the dilator crossed, the sheath was advanced. Once the sheath crossed, the dilator and the needle were removed. At this point I did flood the system and fluid movement was seen in the left atrium the indicates the sheath is in good position. The patient already received 10,000 units of heparin. The goal is to keep an ACT around 350 during ablation. Then through the sheath a [employer]. José Miguel 20 pulse circumferential catheter was advanced. Using [employer] endocardial solution mapping system, a two-dimensional configuration of the left atrium was obtained. Points were taken at the left superior and inferior veins, right superior and inferior veins, mitral valve, and appendages. Then through the sheath a [facility]. José Miguel TactiCath 65cm 3.5mm irrigated tipped mapping and radiofrequency ablation catheter was advanced. Esophageal probe was placed temperature monitoring during ablation. When it increased to 0.5 degrees Celsius above baseline, I moved to a different area of the atrium. First I did isolate the left superior and inferior vein. I did make a ch[place]ick around the left veins. Posterior wall was ablated. Then a roof line was created, a floor line was created, a mitral line was isolated, then the mitral valve was isolated. Anterior wall was ablated At that point the patient was in left atrial tachycardia. I did create a line from the floor to the roof area, passing by the left atrial appendage. Then the right superior and inferior veins were isolated. I did remap the atrium. There is no significant signal in the atrium. At this point I decided to proceed with cardioversion. A 200 sync biphasic joule was delivered that converted the patient into sinus rhythm. At that point I did advance the circumferential catheter again into the vein. There was no signal into the vein, pacing from the vein showed no conduction to the atrium. Isuprel infusion was initiated at 20 mcg for 10 minutes. No tachyarrhythmia was induced, post Isuprel no tachyarrhythmia was induced. At that point the procedure was complete. All catheters were removed, atrial septal sheath was exchanged for 9-Comoran Hemaquet, intracardiac echo showed no pericardial effusion. There is still good flow in the pulmonary vein. The patient is going to be transferred to the recovery room. No incident report. The patient tolerated the procedure. Blood loss was minimal. FINDINGS 1. Electrocardiogram: At baseline the patient was in atrial fibrillation, post procedure the patient was in sinus rhythm. 2. Basic interval: Base cycle length was around 580. Post ablation she was around 1440 milliseconds. AH at 160 and HV at 42 milliseconds. 3. Tachyarrhythmia: Atrial fibrillation was mapped and ablated. Atrial tachycardia was ablated. The ablation was successful. CONCLUSION Successful electrophysiology study, mapping, radiofrequency ablation of atrial fibrillation, left atrial tachycardia, pulmonary vein isolation, posterior ablation, mitral valve isolation, mitral line creation, roof line creation, floor line creation, left atrial tachycardia, and cardioversion. COMMENTS AND RECOMMENDATIONS The patient is going to be transferred to the telemetry unit. Will be observed and when stable can be discharged home. Leonel Myrick MD May 04, 2016 12:49
--- NOTE | 2016-05-04 15:02 | ETE ---
Study Study Date:04/08/2016 STUDY CONCLUSIONS SUMMARY - Left ventricle: The cavity size was normal. Wall thickness was normal. Systolic function was normal. The estimated ejection fraction was in the range of 60% to 65%. Wall motion was normal; there were no regional wall motion abnormalities. - Aortic valve: No evidence of vegetation. - Mitral valve: No evidence of vegetation. - Left atrium: No evidence of thrombus in the atrial cavity or appendage. No evidence of thrombus in the atrial cavity or appendage. - Right atrium: No evidence of thrombus in the atrial cavity or appendage. - Atrial septum: No defect or patent foramen ovale was identified. Echo contrast study showed no [id number] atrial level shunt, at baseline or with provocation. - Tricuspid valve: No evidence of vegetation. - Pulmonic valve: No evidence of vegetation. If LV function is below 40, please consider prescribing an ACEI or ARB or document rationale for non-use. PROCEDURE DATA Consent: The risks, benefits, and alternatives to the procedure were explained to the patient and informed consent was obtained. Procedure: Initial setup. The patient was brought to the laboratory in the fasting state. Intravenous access was obtained. Surface ECG leads and pulse oximetric signals were monitored. Sedation. Conscious sedation was administered by cardiology staff. Transesophageal echocardiography. Topical anesthesia was obtained using viscous lidocaine. A transesophageal probe was inserted by the attending associate publisher. Image quality was good. Study completion: All IVs inserted during the procedure were removed. The patient tolerated the procedure well. There were no complications. Transesophageal echocardiography. 2D, complete spectral Doppler, and color Doppler. CARDIAC ANATOMY LEFT VENTRICLE: The cavity size was normal. Wall thickness was normal. Systolic function was normal. The estimated ejection fraction was in the range of 60% to 65%. Wall motion was normal; there were no regional wall motion abnormalities. AORTIC VALVE: Trileaflet; mildly thickened leaflets. Cusp separation was normal. No evidence of vegetation. Doppler: No significant regurgitation. Aorta: - There was no atheroma. There was no evidence for dissection. Aortic root: The aortic root was not dilated. Ascending aorta: The ascending aorta was normal in size. Aortic arch: The aortic arch was normal in size. Descending aorta: The descending aorta was normal in size. MITRAL VALVE: Structurally normal valve. Leaflet separation was normal. No evidence of vegetation. Doppler: Trace regurgitation. LEFT ATRIUM: The atrium was normal in size. No evidence of thrombus in the atrial cavity or appendage. No evidence of thrombus in the atrial cavity or appendage. The appendage was morphologically a left appendage, multilobulated, and of normal size. Emptying velocity was normal. ATRIAL SEPTUM: No defect or patent foramen ovale was identified. Echo contrast study showed no [id number] atrial level shunt, at baseline or with provocation. RIGHT VENTRICLE: The cavity size was normal. Wall thickness was normal. Systolic function was normal. PULMONIC VALVE: Structurally normal valve. No evidence of vegetation. TRICUSPID VALVE: Structurally normal valve. Leaflet separation was normal. No evidence of vegetation. Doppler: Trace regurgitation. PULMONARY ARTERY: The main pulmonary artery was normal-sized. RIGHT ATRIUM: The atrium was normal in size. No evidence of thrombus in the atrial cavity or appendage. The appendage was morphologically a right appendage. PERICARDIUM: There was no pericardial effusion. Prepared and signed by Leonel Myrick [id number]
== END 2016-04-09 11:41 | disposition home or self-care (01) ==
LOC: HDOC 13:45 → HDIC 13:47 → HCIN 22:20 → HDOC 04-09 11:41
PROVIDERS: ATTEND Internal Medicine Interventional Cardiology
DX: I48.2 Chronic atrial fibrillation (principal); I42.9 Cardiomyopathy, unspecified; I50.9 Heart failure, unspecified; I25.10 Atherosclerotic heart disease of native coronary artery without angina pectoris; E11.9 Type 2 diabetes mellitus without complications; Z95.810 Presence of automatic (implantable) cardiac defibrillator
CPT/HCPCS: 00537; 80048; 85002; 85025; 85610; 85730; 92960; 93005; 93312; 93320; 93325; 93613; 93623; 93656; 93662; C1730; C1731; C1732; C1759; C1766; C2630; J1644; J1815; J1940; J1956; J2720; J3010; J7040

== ENCOUNTER 2016-06-14 11:49 | Day surgery (SDC) | payer OTHER ==
[~2016-06-14 11:49] MED LIST changes: +AMIO200T PO; -CARD240C6 PO; -CLON0.1T PO; +CLON0.2T PO; -DILA100C PO; -GLIP10TA6 PO; +GLIP5TAB8 PO; +LEVE500T8 PO; -LISI-515 PO; +MULT1TAB84 PO; +NITR1SUB3 SL; +OMEP20TA PO; +POTA-245 PO; +PROPOFOL 200 MG/20 ML AMP IV ONE
[2016-06-14] MEDS ORDERED: PROPOFOL 200 MG/20 ML AMP IV ONE (12:00)
[2016-06-14] MEDS ORDERED: POVIDONE IODINE 5% (ANTISEPSIS KIT) 4 APPLICATIONS EACH NARE PRN (12:30)
[2016-06-14] MEDS ORDERED: METOPROLOL TARTRATE 25 MG TAB PO PRN (12:30)
[2016-06-14] MEDS ORDERED: CHLORHEXIDINE GLUCONATE 2 % 1 PACK (2 CLOTHS) TOPICAL PRN (12:30)
[2016-06-14] MEDS ORDERED: INSULIN HUMAN REGULAR 1,000 UNITS/10 ML VIAL SQ PRN (12:30)
[2016-06-14] MEDS ORDERED: LACTATED RINGER'S 1000 ML IV PRN (12:30)
[2016-06-14] MEDS ORDERED: SODIUM CHLORID 0.9% 500 ML IV PRN (12:30)
[2016-06-14] MEDS ORDERED: CARD180C5 PO (12:58)
[2016-06-14] MEDS ORDERED: AMIO200T PO (12:58)
[2016-06-14] MEDS ORDERED: DIGO0.12 PO (12:58)
--- NOTE | 2016-06-14 16:55 | MA ---
cc: SHARITA FREY M.D. DATE: 06/14/2016 TYPE OF PROCEDURE: Cardioversion. HISTORY: Mr. Bolton is a 76-year-old gentleman with atrial fibrillation, previous ablation left atrial tachycardia, who will undergo cardioversion. The risks, the nature and the benefit of the procedure are clearly stated to him risks include cardiac arrest need for pacing, need for the another cardiac intervention and even . He understood and agreed to proceed. PROCEDURE After written informed consent was obtained, the patient was advised by anesthesiologist. Once sedation verified, anterolateral pads were placed. Subsequently a 200 sync biphasic joule was delivered that converted the patient into sinus rhythm. The patient recuperated from anesthesia. No incident report. The patient tolerated procedure. CONCLUSION Successful cardioversion, COMMENT/RECOMMENDATIONS The patient going to be O A observed and discharged home later today. MD ZA Cabrales/jacky /4:24 PM /4:42 PM
--- NOTE | 2016-06-16 21:30 | EKG ---
Date Performed: 06/14/2016 Time Performed: 16:56:22 PTAGE: 76 years EKG: Sinus rhythm with PAC(s). Left axis deviation RBBB with left anterior fascicular block Left ventricular hypertrop hy Inferior/lateral ST-T changes are probably due to ventricular hypertrophy Abnormal ECG PREVIOUS TRACING : 06/14/2016 12.21 DOCTOR: Leonel Myrick Interpretating Date/Time 06/16/2016 21:26:49
--- NOTE | 2016-06-16 21:38 | EKG ---
Date Performed: 06/14/2016 Time Performed: 12:21:16 PTAGE: 76 years EKG: Sinus tachycardia. Possible left atrial abnormality Left axis deviation RBBB with left ante rior fascicular block Inferior infarct - age undetermined Lateral ST-T changes may be due to myocardi al ischemia Abnormal ECG PREVIOUS TRACING : 04/09/2016 05.03 DOCTOR: Leonel Myrick Interpretating Date/Time 06/16/2016 21:33:35
== END 2016-06-14 17:20 | disposition home or self-care (01) ==
LOC: HDOC 11:49 → HDIC 11:51 → HDOC 17:20
PROVIDERS: ATTEND Internal Medicine Interventional Cardiology
DX: I48.91 Unspecified atrial fibrillation (principal); I47.1 Supraventricular tachycardia; I50.9 Heart failure, unspecified; I10 Essential (primary) hypertension; E11.9 Type 2 diabetes mellitus without complications; Z95.810 Presence of automatic (implantable) cardiac defibrillator; Z79.01 Long term (current) use of anticoagulants; Z79.84 Long term (current) use of oral hypoglycemic drugs
CPT/HCPCS: 92960; 93005

== ENCOUNTER 2016-09-28 19:55 | Inpatient (IN) | payer OTHER, MEDICARE ==
[~2016-09-28] VITALS: Ht 172.7 cm; Wt 99.0 kg
[~2016-09-28 19:55] MED LIST changes: +CARD180C5 PO; -PROPOFOL 200 MG/20 ML AMP IV ONE
[2016-09-28 20:00] VITALS: BP 122/73; PULSE 144; RESP 22; TEMP 98.3; O2SAT 98
[2016-09-28 20:14] VITALS: BP 133/76; PULSE 141; RESP 18; O2SAT 98
[2016-09-28 20:19] VITALS: RESP 18; O2SAT 98
--- NOTE | 2016-09-28 20:26 | PD ---
HPI Chief Complaint: Respiratory Symptoms Time Seen by Provider: 20:17 Travel History International Travel<30 days: No Contact w/Intl Traveler<30days: No Traveled to known affect area: No History of Present Illness HPI 68-year-old male with history of HTN, HLD, DM, CAD, A. fib and CHF here with shortness of breath. Patient has had approximately one week of dyspnea. Most notably with exertion and laying flat. Patient states he has not been able lay flat and instead lays on his side to sleep. He denies any cough or chest congestion. No chest pain. No increase in peripheral edema. He's been compliant with home meds. No associated palpitations. His nsh teacher is Dr. Echavarria. [facility] Past Medical History Hx Anticoagulant Therapy: Yes Arthritis: Yes (thumbs;knee caps) Asthma: No Atrial Fibrillation: Yes Autoimmune Disease: No Blood Disorders: No Anxiety: No Depression: No Heart Rhythm Problems: Yes (a fib ) Cancer: No Cardiac Catheterization: Yes (STENT X 3 CAN'T REMEMBER DATE.) Cardiovascular Problems: Yes (AICD ([facility]), CHF,CAD,AFIB,FL,V.TACH) High Cholesterol: Yes Chemotherapy: No Chest Pain: No Congestive Heart Failure: Yes COPD: No Cerebrovascular Accident: Yes (CVA , (denies but recall history says yes? 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 ) Sickle Cell Disease: No Sleep Apnea: No Thyroid Disease: No Ulcer: Yes (HX BLEEDING ULCERS ) Influenza Vaccination: Yes PNEUMOCCOCAL Vaccine (Year): 1 Past Surgical History Abdominal Surgery: Yes (cholecystectomy) AICD: Yes Appendectomy: No Arteriovenous Shunt: No Cardiac Surgery: Yes (pacemaker;defibillator; cath w/ stents ) Cholecystectomy: Yes Coronary Stent: Yes (1994 /r placed 2 yr ago) Ear Surgery: No Endocrine Surgery: No Eye Surgery: Yes (right eye detached retina repair;right eye cataract removal) Genitourinary Surgery: Yes (penile implantation and removal) Gynecologic Surgery: No Insulin Pump: No Joint Replacement: No Neurologic Surgery: Yes (BRAIN SURGERY FOR ABSCESS 1987) Oral Surgery: No Pacemaker: Yes Thoracic Surgery: Yes (AICD) Other Surgery: Yes (BRAIN ABSCESS 1987) Social History Alcohol Use: Yes (OCCASSIONALLY) Tobacco Use: No Substance Use: No Allergies-Medications (Allergen,Severity, Reaction): Coded Allergies: No Known Allergies (Verified , 03/21/16) Reported Meds & Prescriptions Reported Meds & Active Scripts Active Reported Cardizem CD 24 HR (Diltiazem CD 24 HR) 180 Mg Caper 180 Mg PO DAILY Amiodarone (Amiodarone HCl) 200 Mg Tab 200 Mg PO DAILY Omeprazole 20 Mg Tab 20 Mg PO DAILY Nitroglycerin SL (Nitroglycerin) 0.4 Mg Subl 0.4 Mg SL DIRECTED PRN ONE TABLET UNDER THE TONGUE NEEDED FOR CHEST PAIN, MAY REPEAT EVERY FIVE MINUTES FOR A TOTAL OF 3 DOSES OR CALL 911 IF NO RELIEF Multivitamin Adults (Multiple Vitamins W/ Minerals) 1 Tab 1 Tab PO DAILY Levetiracetam 500 Mg Tab 500 Mg PO BID Klor-Con M20 (Potassium Chloride Microencaps) 20 Meq Tab 20 Meq PO Q12HR Glipizide 5 Mg Tab 5 Mg PO DAILY Take 30 minutes before a meal Clonidine (Clonidine HCl) 0.2 Mg Tab 0.2 Mg PO BID Humulin N Inj (Insulin Human NPH) 1,000 Unit/10 Ml Vial Units SQ DIRECTED Xarelto (Rivaroxaban) 20 Mg Tab 20 Mg PO HS Metoprolol Succinate ER 24 HR (Metoprolol Succinate) 200 Mg Tab 200 Mg PO DAILY Lasix (Furosemide) 40 Mg Tab 40 Mg PO DAILY Atorvastatin (Atorvastatin Calcium) 80 Mg Tab 80 Mg PO HS Review of Systems Except as stated in HPI: all other systems reviewed are Neg Physical Exam Narrative GENERAL: Well-appearing elderly male in mild respiratory distress SKIN: Focused skin assessment warm/dry. HEAD: Normocephalic. EYES: No scleral icterus. No injection or drainage. ENT: Mucous membranes pink and moist. NECK: Supple CARDIOVASCULAR: Tachycardic with heart rate in the 140s to 150s, irregularly irregular rhythm. No murmur appreciated. RESPIRATORY: Mild respiratory distress, decreased throughout particularly the bases GASTROINTESTINAL: Abdomen soft, non-tender, nondistended. Obese MUSCULOSKELETAL: No obvious deformities. Trace BLE edema. Sunburn to the anterior ankle bilaterally NEUROLOGICAL: Awake and alert. Normal speech. PSYCHIATRIC: Appropriate mood and affect; insight and judgment normal. Data Data Last Documented VS Vital Signs Date Time Temp Pulse Resp B/P Pulse Ox O2 Delivery O2 Flow Rate FiO2 09/28/16 20:53 128 18 81/57 99 Nasal Cannula 2 09/28/16 20:00 98.3 Orders Electrocardiogram (09/28/16 20:17) Basic Metabolic Panel (Bmp) (09/28/16 20:17) B-Type Natriuretic Peptide (09/28/16 20:17) Complete Blood Count With Diff (09/28/16 20:17) Magnesium (Mg) (09/28/16 20:17) Prothrombin Time / Inr (Pt) (09/28/16 20:17) Act Partial Throm Time (Ptt) (09/28/16 20:17) Troponin I (09/28/16 20:17) Chest, Single Ap (09/28/16 20:17) Ecg Monitoring (09/28/16 20:17) Bilateral Bp Monitoring (09/28/16 20:17) Iv Access Insert/Monitor (09/28/16 20:17) Oximetry (09/28/16 20:17) Sodium Chloride 0.9% Flush (Ns Flush) (09/28/16 20:30) Diltiazem Inj (Cardizem Inj) (09/28/16 20:30) Diltiazem Inj (Cardizem Inj) (09/28/16 20:30) Sodium Chloride 0.9% Flush (Ns Flush) (09/28/16 20:30) Sodium Chlorid 0.9% 500 Ml Inj (Ns 500 M (09/28/16 21:30) Amiodarone Inj (Cordarone Inj) (09/28/16 22:00) Sodium Chloride 0.9% Flush (Ns Flush) (09/28/16 22:00) Consult Cardiology (09/28/16 ) (Hub Use Only)Inp Phy Cons/Ref (09/28/16 ) Labs Laboratory Tests Test 09/28/16 09/28/16 20:15 20:22 White Blood Count 7.9 TH/MM3 Red Blood Count 4.59 MIL/MM3 Hemoglobin 12.5 GM/DL Hematocrit 38.5 % Mean Corpuscular Volume 83.8 FL Mean Corpuscular Hemoglobin 27.1 PG Mean Corpuscular Hemoglobin 32.4 % Concent Red Cell Distribution Width 21.3 % Platelet Count 215 TH/MM3 Mean Platelet Volume 7.8 FL Neutrophils (%) (Auto) 68.6 % Lymphocytes (%) (Auto) 19.7 % Monocytes (%) (Auto) 10.2 % Eosinophils (%) (Auto) 1.1 % Basophils (%) (Auto) 0.4 % Neutrophils # (Auto) 5.4 TH/MM3 Lymphocytes # (Auto) 1.5 TH/MM3 Monocytes # (Auto) 0.8 TH/MM3 Eosinophils # (Auto) 0.1 TH/MM3 Basophils # (Auto) 0.0 TH/MM3 CBC Comment DIFF FINAL Differential Comment Prothrombin Time 18.5 SEC Prothromb Time International 1.6 RATIO Ratio Activated Partial 38.7 SEC Thromboplast Time Sodium Level 138 MEQ/L Potassium Level 4.0 MEQ/L Chloride Level 99 MEQ/L Carbon Dioxide Level 28.9 MEQ/L Anion Gap 10 MEQ/L Blood Urea Nitrogen 27 MG/DL Creatinine 1.83 MG/DL Estimat Glomerular Filtration 36 ML/MIN Rate Random Glucose 241 MG/DL Calcium Level 8.8 MG/DL Magnesium Level 2.2 MG/DL Troponin I 0.32 NG/ML B-Type Natriuretic Peptide 405 PG/ML MDM Medical Decision Making Medical Screen Exam Complete: Yes Emergency Medical Condition: Yes Medical Record Reviewed: Yes Differential Diagnosis 76-year-old male with history of HTN, HLD, DM, CAD, CHF and A. fib here with one week of dyspnea worse with exertion and laying flat. Differential includes CHF exacerbation, pulmonary edema, ACS, arrhythmia, electrolyte abnormality, symptomatic anemia Narrative Course Patient placed on monitor, IV established and blood obtained. Notably tachycardic irregularly irregular rhythm with heart rate in the 140s to 150s. Twelve-lead EKG shows atrial flutter versus atrial fibrillation with RVR. Patient has notable ST depression in precordial leads likely rate-related demand ischemia. Patient was given 24 mg diltiazem IV followed by diltiazem drip. CBC, BMP, magnesium, BNP, troponin, coags notable for troponin 0.32, likely demand related ischemia from his rate. BNP 405. BUN 27, creatinine 1.83 slightly increased from patient's baseline. Portable chest x-ray obtained showing slight bibasilar atelectasis and/or infiltrate, questionable tiny right pleural effusion. With diltiazem patient's blood pressure dropped into the 80s and 90s systolic, given 500 mL normal saline bolus. Cardiology consulted for patient's elevated troponin, A. fib with RVR. I suspect elevated troponin again is demand related ischemia. Patient's heart rate remains in the 120s to 140s, blood pressure in the 80 systolic despite diltiazem drip maxed at 15. He was given amiodarone bolus. Patient is entirely asymptomatic with his hypotension. Patient will be admitted to the ICU, Dr. Yanes accepted admission. Critical Care Narrative Aggregate critical care time was 65 minutes. Time to perform other separately billable procedures was not included in the critical care time. My time did not include minutes spent treating any other patients simultaneously or on activities that did not directly contribute to the patient's treatment. The services I provided to this patient were to treat and/or prevent clinically significant deterioration that could result in: Cardiopulmonary decompensation, , disability I provided critical care services requiring my management, as noted below: Chart data review, documentation time, medication orders and management, vital sign assessments/reviewing monitor data, ordering and reviewing lab tests, ordering and interpreting/reviewing x-rays and diagnostic studies, care of the patient and discussion of the patient with the admitting physicians. Diagnosis Primary Impression: Atrial fibrillation with rapid ventricular response Additional Impressions: Elevated troponin Dyspnea Qualified Code: R06.02 - Shortness of breath Admitting Information Admitting Physician Requests: Admit Hodan Damon MD Sep 28, 2016 20:26
[2016-09-28] MEDS ORDERED: DILTIAZEM HCL 25 MG/5 ML VIAL IV PUSH ONE (20:30)
[2016-09-28] MEDS ORDERED: SODIUM CHLORIDE 0.9% FLUSH 10 ML FLUSH IVF PRN ×3 (20:30→22:00)
[2016-09-28 20:33] VITALS: BP_SYST 95; BP_SYST 96; BP_DIAS 55; BP_DIAS 60; PULSE 142; RESP 18; O2SAT 100
--- NOTE | 2016-09-28 20:42 | RADRPT ---
EXAM DATE/TIME: 09/28/2016 20:14 [facility] COMPARISON: CHEST SINGLE AP, March 21, 2016, 16:13. INDICATIONS : Shortness of breath. MEDICAL HISTORY : Hypercholesterolemia. Diabetes mellitus type II. Cardiovascular disease. AFIB SURGICAL HISTORY : Pacemaker. Splenectomy. ENCOUNTER: Initial ACUITY: 1 week PAIN SCORE: 0/10 LOCATION: Bilateral chest FINDINGS: Cardiomegaly has not changed. Macropet left subclavian pacer Slight bibasilar atelectasis and/or infi ltrate is seen. Tiny right pleural effusion may also be present. CONCLUSION: Slight bibasilar atelectasis and/or infiltrate is seen and questionable tiny right pleural effusion. Rhianna Ramirez MD on September 28, 2016 at 20:40 Board Certified Radiologist. This report was verified electronically.
[2016-09-28] MEDS: DILTIAZEM INJ 125 MG in SODIUM CHLORIDE 0.9% INJ 100 ML IV SCH (20:43)
[2016-09-28 20:53] VITALS: BP 81/57; PULSE 128; RESP 18; O2SAT 99
[2016-09-28 21:16] LABS: AUTOMATED NEUTROPHIL # 5.4 TH/MM3 (1.8-7.7); BASOPHIL % 0.4 % (0.0-2.0); EOSINOPHIL # 0.1 TH/MM3 (0-0.4); EOSINOPHIL % 1.1 % (0.0-4.0); HEMATOCRIT 38.5 % (39.0-51.0); HEMO FLAGS DIFF FINAL; LYMPH % 19.7 % (9.0-44.0); LYMPHOCYTE # 1.5 TH/MM3 (1.0-4.8); MEAN CELL VOLUME 83.8 FL (80.0-100.0); MEAN CORPUSCULAR HEMOGLOBIN 27.1 PG (27.0-34.0); MEAN CORPUSCULAR HGB CONC 32.4 % (32.0-36.0); MONO % 10.2 % (0.0-8.0); NEUT % 68.6 % (16.0-70.0); PLATELET COUNT 215 TH/MM3 (150-450); RED BLOOD COUNT 4.59 MIL/MM3 (4.50-5.90); RED CELL DISTRIBUTION WIDTH 21.3 % (11.6-17.2); WHITE BLOOD COUNT 7.9 TH/MM3 (4.0-11.0)
[2016-09-28 21:30] LABS: APTT (PATIENT) 38.7 SEC (24.3-30.1); INTERNATIONAL NORMALIZED RATIO 1.6 RATIO; PROTHROMBIN TIME - PATIENT 18.5 SEC (9.8-11.6)
[2016-09-28] MEDS ORDERED: SODIUM CHLORID 0.9% 500 ML INJ 500 ML IV ONE (21:30)
[2016-09-28 21:44] LABS: BICARBONATE 28.9 MEQ/L (21.0-32.0); MAGNESIUM 2.2 MG/DL (1.5-2.5)
[2016-09-28] MEDS ORDERED: AMIODARONE INJ 150 MG in DEXTROSE 5% IN WATER 100ML INJ 97 ML IV ONE ×2 (22:00)
[2016-09-28 23:01] VITALS: BP 93/63; PULSE 133; RESP 18; O2SAT 100
--- NOTE | 2016-09-28 23:07 | HHI.HP ---
[facility] Service Critical Care Medicine Primary Care Physician Karla Ocampo MD Admission Diagnosis afib w rvr,sob Diagnosis: Travel History International Travel<30 Days: No Contact w/Intl Traveler <30 Da: No Traveled to Known Affected Are: No History of Present Illness 68-year-old male with history of hypertension, dyslipidemia, and diabetes, coronary artery disease, A. fib and CHF presents today here with shortness of breath. Patient has had approximately one week of dyspnea mostly exertional and when laying flat. Patient states he has not been able lay flat and instead lays on his side to sleep. He denies any cough or chest congestion. No chest pain. No increase in peripheral edema. He has had recent ablation by Dr. Fay and his head gauge unit operator is Dr. Echavarria. Review of Systems Constitutional: DENIES: Diaphoretic episodes, Fatigue, Fever, Weight gain, Weight loss, Chills, Dizziness, Change in appetite, Night Sweats Endocrine: DENIES: Heat/cold intolerance, Polydipsia, Polyuria, Polyphagia Eyes: DENIES: Blurred vision, Diplopia, Eye inflammation, Eye pain, Vision loss , Photosensitivity, Double Vision Ears, nose, mouth, throat: DENIES: Tinnitus, Hearing loss, Vertigo, Nasal discharge, Oral lesions, Throat pain, Hoarseness, Ear Pain, Running Nose, Epistaxis, Sinus Pain, Toothache, Odynophagia Respiratory: COMPLAINS OF: Shortness of breath, DENIES: Apneas, Cough, Snoring , Wheezing, Hemoptysis, Sputum production Cardiovascular: DENIES: Chest pain, Palpitations, Syncope, Dyspnea on Exertion , PND, Lower Extremity Edema, Orthopnea, Claudication Gastrointestinal: DENIES: Abdominal pain, Black stools, Bloody stools, Constipation, Diarrhea, Nausea, Vomiting, Difficulty Swallowing, Anorexia Genitourinary: DENIES: Sexual dysfunction, Urinary frequency, Urinary incontinence, Urgency, Hematuria, Dysuria, Nocturia, Penile Discharge, Testicular Pain, Testicular Swelling Musculoskeletal: DENIES: Joint pain, Muscle aches, Stiffness, Joint Swelling, Back pain, Neck pain Integumentary: DENIES: Abnormal pigmentation, Nail changes, Pruritus, Rash Hematologic/lymphatic: DENIES: Bruising, Lymphadenopathy Immunologic/allergic: DENIES: Eczema, Urticaria Neurologic: DENIES: Abnormal gait, Headache, Localized weakness, Paresthesias, Seizures, Speech Problems, Tremor, Poor Balance Psychiatric: DENIES: Anxiety, Confusion, Mood changes, Depression, Hallucinations, Agitation, Suicidal Ideation, Homicidal Ideation, Delusions Past Family Social History Allergies: Coded Allergies: No Known Allergies (Verified , 03/21/16) Past Medical History Diverticulitis Coronary artery disease Atrial fibrillation Diabetes mellitus type 2 Hyperlipidemia History of brain abscess status post craniotomy CHF Past Surgical History Craniotomy, Pacemaker, Right eye surgery, Cholecystectomy, Ablation 3, Cardiac stents 6 Reported Medications Reported Meds & Active Scripts Active Reported Cardizem CD 24 HR (Diltiazem CD 24 HR) 180 Mg Caper 180 Mg PO DAILY Amiodarone (Amiodarone HCl) 200 Mg Tab 200 Mg PO DAILY Omeprazole 20 Mg Tab 20 Mg PO DAILY Nitroglycerin SL (Nitroglycerin) 0.4 Mg Subl 0.4 Mg SL DIRECTED PRN ONE TABLET UNDER THE TONGUE NEEDED FOR CHEST PAIN, MAY REPEAT EVERY FIVE MINUTES FOR A TOTAL OF 3 DOSES OR CALL 911 IF NO RELIEF Multivitamin Adults (Multiple Vitamins W/ Minerals) 1 Tab 1 Tab PO DAILY Levetiracetam 500 Mg Tab 500 Mg PO BID Klor-Con M20 (Potassium Chloride Microencaps) 20 Meq Tab 20 Meq PO Q12HR Glipizide 5 Mg Tab 5 Mg PO DAILY Take 30 minutes before a meal Clonidine (Clonidine HCl) 0.2 Mg Tab 0.2 Mg PO BID Humulin N Inj (Insulin Human NPH) 1,000 Unit/10 Ml Vial Units SQ DIRECTED Xarelto (Rivaroxaban) 20 Mg Tab 20 Mg PO HS Metoprolol Succinate ER 24 HR (Metoprolol Succinate) 200 Mg Tab 200 Mg PO DAILY Lasix (Furosemide) 40 Mg Tab 40 Mg PO DAILY Atorvastatin (Atorvastatin Calcium) 80 Mg Tab 80 Mg PO HS Active Ordered Medications Current Medications Medications (Trade) Dose Ordered Sig/Jaz Route PRN Reason Start Time Stop Time Status Last Admin Dose Admin Sodium Chloride 2 ml 2 ml UNSCH PRN IVF FLUSH AFTER USING IV ACCESS 09/28/16 20:30 Diltiazem HCl/ Sodium Chloride (Cardizem Inj/NS Inj) 125 ml @ 0 mls/hr TITRATE IV 09/28/16 20:30 09/28/16 20:43 Sodium Chloride (NS Flush) 2 ml UNSCH PRN IVF FLUSH AFTER USING IV ACCESS 09/28/16 20:30 Sodium Chloride (NS Flush) 2 ml UNSCH PRN IVF FLUSH AFTER USING IV ACCESS 09/28/16 22:00 Amiodarone HCl (Cordarone) 200 mg DAILY PO 09/29/16 09:00 Atorvastatin Calcium (Lipitor) 80 mg HS PO 09/29/16 21:00 Diltiazem HCl (Cardizem Cd) 180 mg DAILY PO 09/29/16 09:00 Furosemide (Lasix) 40 mg DAILY PO 09/29/16 09:00 Glipizide (Glucotrol) 5 mg DAILY@08 PO 09/29/16 08:00 Levetriacetam (Keppra) 500 mg BID PO 09/29/16 09:00 Rivaroxaban (Xarelto) 20 mg HS PO 09/29/16 21:00 Metoprolol Succinate (Toprol Xl) 200 mg DAILY PO 09/29/16 09:00 Pantoprazole Sodium (Protonix) 20 mg DAILY PO 09/29/16 09:00 Sodium Chloride (NS Flush) 2 ml UNSCH PRN .XX FLUSH AFTER USING IV ACCESS 09/28/16 23:15 Sodium Chloride (NS Flush) 2 ml BID .XX 09/29/16 09:00 Acetaminophen (Tylenol) 650 mg Q6H PRN PO PAIN 1-10 AND/OR FEVER >101F 09/28/16 23:15 Ondansetron HCl (Zofran Inj) 4 mg Q6H PRN IV NAUSEA OR VOMITING 09/28/16 23:15 Zolpidem Tartrate (Ambien) 5 mg HS PRN PO INSOMNIA 09/28/16 23:15 Miscellaneous Information 1 Q361D XX 09/28/16 23:15 Chlorhexidine Gluconate (Chlorhexidine 2% Cloth) 3 pack Taper DAILY@04 TOP 09/29/16 04:00 09/25/17 03:59 Chlorhexidine Gluconate (Chlorhexidine 2% Cloth) 3 pack UNSCH PRN TOP HYGIENIC CARE 09/28/16 23:15 Senna/Docusate Sodium (Ingrid-Colace) 1 tab BID PO 09/29/16 09:00 Magnesium Hydroxide (Milk Of Magnesia Liq) 30 ml Q12H PRN PO MILD - MODERATE CONSTIPATION 09/28/16 23:15 Sennosides (Senokot) 17.2 mg Q12H PRN PO MODERATE - SEVERE CONSTIPATION 09/28/16 23:15 Bisacodyl (Dulcolax Supp) 10 mg DAILY PRN RECTAL SEVERE CONSITIPATION 09/28/16 23:15 Lactulose (Lactulose Liq) 30 ml DAILY PRN PO SEVERE CONSITIPATION 09/28/16 23:15 Family History No history of cancer diabetes or early coronary disease Social History Denies smoking alcohol or illicit drug abuse Physical Exam Vital Signs Vital Signs Date Time Temp Pulse Resp B/P Pulse Ox O2 Delivery O2 Flow Rate FiO2 09/28/16 23:01 133 18 93/63 100 Nasal Cannula 2 09/28/16 20:53 128 18 81/57 99 Nasal Cannula 2 09/28/16 20:33 142 18 96/60 100 Nasal Cannula 2 95/55 09/28/16 20:19 18 98 Nasal Cannula 2 09/28/16 20:14 141 18 133/76 98 09/28/16 20:00 98.3 144 22 122/73 98 Room Air Physical Exam GENERAL: Well-nourished, well-developed patient. SKIN: Warm and dry. HEAD: Normocephalic. EYES: No scleral icterus. No injection or drainage. NECK: Supple, trachea midline. No JVD or lymphadenopathy. CARDIOVASCULAR: Regular rate and rhythm without murmurs, gallops, or rubs. RESPIRATORY: Breath sounds equal bilaterally. No accessory muscle use. GASTROINTESTINAL: Abdomen soft, non-tender, nondistended. MUSCULOSKELETAL: No cyanosis, or edema. BACK: Nontender without obvious deformity. No CVA tenderness. EXTREMITIES: Moves all 4 no clubbing cyanosis or edema Laboratory Laboratory Tests Test 09/28/16 09/28/16 20:15 20:22 White Blood Count 7.9 Red Blood Count 4.59 Hemoglobin 12.5 Hematocrit 38.5 Mean Corpuscular Volume 83.8 Mean Corpuscular Hemoglobin 27.1 Mean Corpuscular Hemoglobin 32.4 Concent Red Cell Distribution Width 21.3 Platelet Count 215 Mean Platelet Volume 7.8 Neutrophils (%) (Auto) 68.6 Lymphocytes (%) (Auto) 19.7 Monocytes (%) (Auto) 10.2 Eosinophils (%) (Auto) 1.1 Basophils (%) (Auto) 0.4 Neutrophils # (Auto) 5.4 Lymphocytes # (Auto) 1.5 Monocytes # (Auto) 0.8 Eosinophils # (Auto) 0.1 Basophils # (Auto) 0.0 CBC Comment DIFF FINAL Differential Comment Prothrombin Time 18.5 Prothromb Time International 1.6 Ratio Activated Partial 38.7 Thromboplast Time Sodium Level 138 Potassium Level 4.0 Chloride Level 99 Carbon Dioxide Level 28.9 Anion Gap 10 Blood Urea Nitrogen 27 Creatinine 1.83 Estimat Glomerular Filtration 36 Rate Random Glucose 241 Calcium Level 8.8 Magnesium Level 2.2 Troponin I 0.32 B-Type Natriuretic Peptide 405 Result Diagram: 09/28/16201409/28/162021 Imaging Last 24 hours Impressions Chest X-Ray 09/28/162016 Signed Impressions: Service Date/Time: Wednesday, September 28, 2016 20:14 - CONCLUSION: Slight bibasilar atelectasis and/or infiltrate is seen and questionable tiny right pleural effusion. Rhianna Ramirez MD Assessment and Plan Assessment and Plan Atrial fibrillation with rapid ventricular response - Amiodarone drip for rate control - Continue metoprolol - Continue Xarelto for anticoagulation - Further per patient's head gauge unit operator Shortness of breath - Due to uncontrolled rapid A. fib - Treat underlying condition - No evidence of pulmonary congestion on x-ray - O2 nasal cannula to keep sats above 92 Diabetes - Insulin sliding scale - 1999 ADA diet - Continue home meds glipizide Dyslipidemia - Atorvastatin Seizure disorder - Keppra DVT GI prophylaxis - Teds SCDs early aggressive mobilization Xarelto - Omeprazole Critical Care: The total critical care time was 35 minutes. Time to perform other separately billable procedures was not included in the critical care time. Scott Yanes MD Sep 28, 2016 23:07
[2016-09-28] MEDS ORDERED: LACTULOSE SYRUP 20 GM/30 ML CUP PO PRN (23:15)
[2016-09-28] MEDS ORDERED: MISCELLANEOUS NURSING INFORMATION XX SCH (23:15)
[2016-09-28] MEDS ORDERED: MAGNESIUM HYDROXIDE SUSP 30 ML CUP PO PRN (23:15)
[2016-09-28] MEDS ORDERED: SENNOSIDES 8.6 MG TAB PO PRN (23:15)
[2016-09-28] MEDS ORDERED: CHLORHEXIDINE GLUCONATE 2 % 1 PACK (2 CLOTHS) TOP PRN (23:15)
[2016-09-28] MEDS ORDERED: SODIUM CHLORIDE 0.9% FLUSH 10 ML FLUSH PRN (23:15)
[2016-09-28] MEDS ORDERED: ACETAMINOPHEN 325 MG TAB PO PRN (23:15)
[2016-09-28] MEDS ORDERED: ONDANSETRON HCL 4 MG/2 ML VIAL IV PRN (23:15)
[2016-09-28] MEDS ORDERED: ZOLPIDEM TARTRATE 5 MG TAB PO PRN (23:15)
[2016-09-28] MEDS ORDERED: RESP: ALBUTEROL 2.5 MG/IPRATROPIUM 0.5 MG NEB (PRN) INH (23:15)
[2016-09-28] MEDS ORDERED: BISACODYL 10 MG SUPP RECTAL PRN (23:15)
[2016-09-29] VITALS (12 sets, daily range): BP systolic 99–113; BP diastolic 62–76; PULSE 121–137; RESP 16–32; TEMP 97.8–98.4; O2SAT 92–97
[2016-09-29 03:55] LABS: AUTOMATED NEUTROPHIL # 6.1 TH/MM3 (1.8-7.7); BASOPHIL # 0.1 TH/MM3 (0-0.2); BASOPHIL % 0.7 % (0.0-2.0); EOSINOPHIL # 0.1 TH/MM3 (0-0.4); EOSINOPHIL % 1.2 % (0.0-4.0); HEMO FLAGS DIFF FINAL; LYMPH % 18.6 % (9.0-44.0); LYMPHOCYTE # 1.7 TH/MM3 (1.0-4.8); MEAN CELL VOLUME 82.8 FL (80.0-100.0); MEAN CORPUSCULAR HEMOGLOBIN 27.2 PG (27.0-34.0); MEAN CORPUSCULAR HGB CONC 32.8 % (32.0-36.0); NEUT % 68.5 % (16.0-70.0); PLATELET COUNT 185 TH/MM3 (150-450); RED BLOOD COUNT 4.47 MIL/MM3 (4.50-5.90); RED CELL DISTRIBUTION WIDTH 21.7 % (11.6-17.2)
[2016-09-29] MEDS: CHLORHEXIDINE GLUCONATE 2 % 1 PACK (2 CLOTHS) TOP SCH (04:00)
[2016-09-29 04:10] LABS: APTT (PATIENT) 39.9 SEC (24.3-30.1)
[2016-09-29] MEDS: DILTIAZEM INJ 125 MG in SODIUM CHLORIDE 0.9% INJ 100 ML IV SCH ×3 (04:29→20:34)
[2016-09-29 04:38] LABS: ALKALINE PHOSPHATASE 102 U/L (45-117); ALT (GPT) 26 U/L (12-78); ANION GAP 9 MEQ/L (5-15); AST (GOT) 18 U/L (15-37); BLOOD UREA NITROGEN 25 MG/DL (7-18); CHLORIDE 102 MEQ/L (98-107); GLOMERULAR FILTRATION RATE 41 ML/MIN (>89); MAGNESIUM 2.2 MG/DL (1.5-2.5); SODIUM (NA) 141 MEQ/L (136-145); TOTAL BILIRUBIN ADULT 0.6 MG/DL (0.2-1.0)
[2016-09-29] MEDS: METOPROLOL SUCCINATE 50 MG EXTENDED RELEASE TAB PO SCH (08:43)
[2016-09-29] MEDS: DILTIAZEM-CD 180 MG CAP ER PO SCH (08:43)
[2016-09-29] MEDS: DOCUSATE SODIUM 50 MG/SENNA 8.6 MG TAB PO SCH ×2 (08:44→20:29)
[2016-09-29] MEDS: FUROSEMIDE 40 MG TAB PO SCH (08:44)
[2016-09-29] MEDS: PANTOPRAZOLE SOD 20 MG DELAYED RELEASE TAB PO SCH (08:44)
[2016-09-29] MEDS: glipiZIDE 5 MG TAB PO SCH (08:44)
[2016-09-29] MEDS: levETIRAcetam 500 MG TAB PO SCH ×2 (08:45→20:30)
[2016-09-29] MEDS: SODIUM CHLORIDE 0.9% FLUSH 10 ML FLUSH SCH ×2 (08:45→20:30)
[2016-09-29] MEDS ORDERED: AMIODARONE 200 MG TAB PO SCH (09:00)
[2016-09-29] MEDS ORDERED: DIGOXIN 0.5 MG/2 ML VIAL IVS STA (10:45)
--- NOTE | 2016-09-29 12:01 | MB ---
cc: BOSSMAN SOLIS MD DATE OF CONSULTATION: 09/29/2016 REASON FOR CONSULTATION: Elevated troponin. HISTORY OF PRESENT ILLNESS The patient is very pleasant 76 year-old gentleman who sees my partner, Dr. Echavarria and Dr. Myrick, for a history of atrial fibrillation status post multiple ablations as well as congestive heart failure. The patient feels that he has been in A-fib for the last couple of weeks with increased lower extremity edema and worsening shortness of breath. He presented in rapid atrial fibrillation and clinical congestive heart failure. He was admitted to the ICU and started on a Cardizem drip. He also is getting oral Lasix. He is feeling somewhat better as long as he is stationary. He denies any current chest pain, shortness of breath, lightheadedness, or dizziness. PAST MEDICAL HISTORY 1. Atrial fibrillation status post multiple ablations. 2. Coronary artery disease per the chart. 3. Hyperlipidemia. CURRENT MEDICATIONS: 1. Lipitor 80 mg q.h.s. 2. Xarelto 20 mg daily. 3. Cardizem 180 milligrams p.o. daily. 4. Lasix 40 milligrams daily. 5. Keppra 500 milligrams b.i.d. 6. Lopressor 20 milligrams daily. 7. Protonix 20 milligrams daily. ALLERGIES: NO KNOWN DRUG ALLERGIES. PHYSICAL EXAMINATION VITAL SIGNS: Afebrile, pulse 133, respiratory rate 16, BP 106/71 sating 95. General: Pleasant obese gentleman in no distress. Neck: No JVD. Lungs: Clear auscultation bilaterally. Cardiovascular: Rapid rate but regular. No murmurs appreciated. Abdomen: Benign. Extremities: Trace edema bilaterally. LABORATORY DATA Sodium 141, potassium 4.0, chloride 102, bicarb 30.0, BUN 25, creatinine 1.65, down from 1.83. Troponin 0.32, 0.44, 0.36. BNP is 405. INR is 1.6, white count 9.0, hematocrit 37.0, platelet count 185. Chest x-ray shows slight basilar atelectasis. EKG shows atrial flutter with right bundle-branch block and left anterior fascicular block at a rate of about 140. IMPRESSION: 1. Rapid atrial flutter. The patient is once again in rapid atrial flutter (versus atrial tachycardia). He is on a Cardizem drip and his blood pressures are fairly marginal. He is also on oral Cardizem and metoprolol. I will add digoxin with a modified digoxin load protocol given his chronic kidney disease. A dig level will be checked in a couple of days and again I will use a lower dose than standard given his renal function. At this time he does not have much room, blood pressure-ochoa to increase any of his other AV christiana blockade medications. He is on Xarelto for anticoagulation. The patient may require an AV christiana ablation given his history of multiple unsuccessful ablations previously and continued difficulty with rapid ventricular rate. 2. CHF. The patient likely has mild systolic congestive heart failure due to his rapid rates. This also is likely why his troponins are slightly elevated. He has no chest pain or indication of acute coronary syndrome. He is currently breathing a lot better and given his marginal blood pressures, I will not add any additional Lasix at this time. Both Dr. Echavarria and Dr. Myrick will return tomorrow to resume care. Thank you again for the opportunity to participate in this patient's care. MD SHRAVAN Gilmore/GONZALO /10:59 AM /11:56 AM
--- NOTE | 2016-09-29 13:02 | EKG ---
Date Performed: 09/28/2016 Time Performed: 20:16:01 PTAGE: 76 years EKG: ATRIAL FLUTTER/TACHYCARDIA WITH RAPID VENTRICULAR RESPONSE WITH ABERRANT CONDUCTION OR VENT RICULAR PREMATURE COMPLEXES RIGHT BUNDLE BRANCH BLOCK LEFT ANTERIOR FASCICULAR BLOCK INFERIOR MYOCARD IAL INFARCTION MARKED ST DEPRESSION, CONSIDER SUBENDOCARDIAL INJURY Compared to previous tracing, th e atrial flutter/tachycardia is new ABNORMAL ECG PREVIOUS TRACING : 06/14/2016 16.56 DOCTOR: Reji Grimes Interpretating Date/Time 09/29/2016 13:01:29
--- NOTE | 2016-09-29 13:02 | EKG ---
Date Performed: 09/29/2016 Time Performed: 07:40:00 PTAGE: 76 years EKG: ATRIAL FLUTTER/TACHYCARDIA RIGHT BUNDLE BRANCH BLOCK LEFT ANTERIOR FASCICULAR BLOCK MARKED ST DEPRESSION, CONSIDER SUBENDOCARDIAL INJURY Compared to prior tracing no significant change ABNORM AL ECG PREVIOUS TRACING : 09/28/2016 20.16 DOCTOR: Reji Grimes Interpretating Date/Time 09/29/2016 13:01:59
[2016-09-29] MEDS: DIGOXIN 0.5 MG/2 ML VIAL IVS SCH ×2 (18:05→22:59)
[2016-09-29] MEDS ORDERED: DILTIAZEM HCL 25 MG/5 ML VIAL IV ONE (19:15)
--- NOTE | 2016-09-29 19:46 | HHI.CCPN ---
Subjective Remarks/Hospital Course 68-year-old male with history of hypertension, dyslipidemia, and diabetes, coronary artery disease, A. fib and CHF presents today here with shortness of breath. Patient has had approximately one week of dyspnea mostly exertional and when laying flat. Patient states he has not been able lay flat and instead lays on his side to sleep. He denies any cough or chest congestion. No chest pain. No increase in peripheral edema. He has had recent ablation by Dr. Fay and his truck dispatcher is Dr. Echavarria. Subjective: A fib RVR persists in 130s on cardizem drip 15 mg/hr, metoprolol 200 XL daily, digoxin load per cardiology. Denies CP/SOB. On RA Objective Vital Signs Date Time Temp Pulse Resp B/P Pulse Ox O2 Delivery O2 Flow Rate FiO2 09/29/16 18:00 127 09/29/16 16:00 98.2 17 99/62 97 09/28/16 23:01 Nasal Cannula 2 Result Diagram: 09/29/16 0330 09/29/16 0330 Imaging Last 24 hours Impressions Chest X-Ray 09/28/162016 Signed Impressions: Service Date/Time: Wednesday, September 28, 2016 20:14 - CONCLUSION: Slight bibasilar atelectasis and/or infiltrate is seen and questionable tiny right pleural effusion. Rhianna Ramirez MD Objective Remarks GENERAL: Well-nourished, well-developed patient sitting up in bedside chair. SKIN: Warm and dry. HEAD: Normocephalic. EYES: Right pupil irregular, ~5 mm and nonreactive. Left pupil 2 mm and reactive. No scleral icterus. No injection or drainage. NECK: Supple, trachea midline. No JVD or lymphadenopathy. CARDIOVASCULAR: Irregularly irregular with no appreciable murmur rub or gallop. RESPIRATORY: Breath sounds equal bilaterally. No accessory muscle use. Rales left base. GASTROINTESTINAL: Abdomen soft, non-tender, nondistended. Bowel sounds present. MUSCULOSKELETAL: No cyanosis. 1+ pedal edema. Peeling skin on anterior aspect of ankles and proximal dorsum of foot bilaterally. Some blistering on distal tib/fib area on left as well. NEURO: Awake and alert, hard of hearing, oriented x4. Moving all extremities spontaneously without focal deficit. A/P Assessment and Plan NEURO: Seizure disorder - Continue Keppra 500 mg by mouth twice a day RESP: On room air CV: Atrial fibrillation with rapid ventricular response - Continue metoprolol XL 200 daily -On cardizem 180 mg by mouth daily. Cardizem drip and a digoxin load has been added by cardiology. Follow-up digoxin level He remains in A. fib RVR in the 130s. Discussed with Dr. Grimes and agrees with resuming amiodarone. Was on xarelto as outpatient. Was started on heparin drip for anticoagulation in event that anticoagulation would need to be held for procedure and with low gfr on admission (though now gfr improving). - Further per patient's cardiologists (Barthjuma/Elen) tomorrow. - Patient is status post atrial ablation 3 -Troponin elevation of 0.44 without CP/SOB likely secondary to RVR and no further workup planned from that standpoint. Dyslipidemia -Continue Atorvastatin Chronic systolic heart failure Echo 02/19/13ejection fraction 35-40%. Hypokinesis inferolateral myocardium, lateral myocardium, posterior myocardium. Mild MR/TR. Pulmonary artery peak systolic pressure 38. - Continue Lasix 40 mg by mouth daily GI: GERD 1999 ADA diet. NPO at midnight in event that ablation is indicated. Continue PPI FEN/RENAL: NARCISO overlying CKD stage III Voiding . Creatinine improving. ID: Monitor for signs and symptoms of infection HEME: Chronic anemia Monitor CBC SKIN: Partial thickness Sunburn bilateral feet/ankle/left peña Silvadene cream bid. ENDO: Diabetes mellitus Glipizide 5 mill grams by mouth daily PROPH: Heparin drip as per above will also provide DVT prophylaxis. Protonix 20 mg daily for stress ulcer prophylaxis and history of GERD ACCESS: Peripheral IV providing adequate access at this time. Patient updated at bedside. Ordered bedside commode per his request. Discussed with Dr. Alcantar Level 3 follow-up DVT GI prophylaxis - Teds SCDs early aggressive mobilization Xarelto - Omeprazole Critical Care: The total critical care time was 35 minutes. Time to perform other separately billable procedures was not included in the critical care time. Prema Barlow MD Sep 29, 2016 19:46
[2016-09-29] MEDS ORDERED: AMIODARONE INJ 150 MG in DEXTROSE 5% IN WATER 100ML INJ 97 ML IV ONE ×2 (20:15)
[2016-09-29] MEDS: ATORVASTATIN 80 MG TAB PO SCH (20:29)
[2016-09-29] MEDS: HEPARIN-D5W INJ 250 ML IV SCH (20:31)
[2016-09-29 20:50] LABS: HEMATOCRIT 37.4 % (39.0-51.0); MEAN CELL VOLUME 84.2 FL (80.0-100.0); MEAN CORPUSCULAR HEMOGLOBIN 26.5 PG (27.0-34.0); MEAN CORPUSCULAR HGB CONC 31.5 % (32.0-36.0); PLATELET COUNT 208 TH/MM3 (150-450); RED BLOOD COUNT 4.45 MIL/MM3 (4.50-5.90); RED CELL DISTRIBUTION WIDTH 21.1 % (11.6-17.2); REVIEW FLAG FINAL; WHITE BLOOD COUNT 9.6 TH/MM3 (4.0-11.0)
[2016-09-29] MEDS: SILVER SULFADIAZINE 1% CR 400 GM JAR TOPICAL SCH (21:00)
[2016-09-29] MEDS ORDERED: RIVAROXABAN 20 MG TAB PO SCH (21:00)
[2016-09-29 21:11] LABS: APTT (PATIENT) 30.8 SEC (24.3-30.1)
[2016-09-29 21:19] LABS: INTERNATIONAL NORMALIZED RATIO 1.3 RATIO; PROTHROMBIN TIME - PATIENT 14.1 SEC (9.8-11.6)
[2016-09-29] MEDS: AMIODARONE IV SCH ×2 (21:54)
[2016-09-29] MEDS: DEXTROSE 5% IV SCH ×2 (21:54)
[2016-09-29] MEDS: WATER IV SCH ×2 (21:54)
[2016-09-30] VITALS (17 sets, daily range): BP systolic 115–150; BP diastolic 56–94; PULSE 60–126; RESP 18–56; TEMP 98.1–98.8; O2SAT 88–97
[2016-09-30] MEDS: DILTIAZEM INJ 125 MG in SODIUM CHLORIDE 0.9% INJ 100 ML IV SCH (03:57)
[2016-09-30] MEDS: CHLORHEXIDINE GLUCONATE 2 % 1 PACK (2 CLOTHS) TOP SCH (04:00)
[2016-09-30 04:57] LABS: APTT (PATIENT) 62.7 SEC (24.3-30.1)
--- NOTE | 2016-09-30 07:51 | PD.CARD.PN ---
Subjective Subjective Remarks Pt with multiple complaints, SHOB, visual changes Objective Medications Current Medications Medications (Trade) Dose Ordered Sig/Jaz Route Start Time Stop Time Status Last Admin (Lipitor) 80 mg HS PO 09/29/16 21:00 09/29/16 20:29 (Cardizem Cd) 180 mg DAILY PO 09/29/16 09:00 09/29/16 08:43 (Lasix) 40 mg DAILY PO 09/29/16 09:00 09/29/16 08:44 (Glucotrol) 5 mg DAILY@08 PO 09/29/16 08:00 09/29/16 08:44 (Keppra) 500 mg BID PO 09/29/16 09:00 09/29/16 20:30 (Toprol Xl) 200 mg DAILY PO 09/29/16 09:00 09/29/16 08:43 (Protonix) 20 mg DAILY PO 09/29/16 09:00 09/29/16 08:44 (NS Flush) 2 ml UNSCH PRN .XX 09/28/16 23:15 (NS Flush) 2 ml BID .XX 09/29/16 09:00 09/29/16 20:30 (Tylenol) 650 mg Q6H PRN PO 09/28/16 23:15 (Zofran Inj) 4 mg Q6H PRN IV 09/28/16 23:15 (Ambien) 5 mg HS PRN PO 09/28/16 23:15 Miscellaneous Information 1 Q361D XX 09/28/16 23:15 09/28/16 23:15 (Chlorhexidine 2% Cloth) 3 pack Taper DAILY@04 TOP 09/29/16 04:00 09/25/17 03:59 09/30/16 04:00 (Chlorhexidine 2% Cloth) 3 pack UNSCH PRN TOP 09/28/16 23:15 (Ingrid-Colace) 1 tab BID PO 09/29/16 09:00 09/29/16 20:29 (Milk Of Magnesia Liq) 30 ml Q12H PRN PO 09/28/16 23:15 (Senokot) 17.2 mg Q12H PRN PO 09/28/16 23:15 (Dulcolax Supp) 10 mg DAILY PRN RECTAL 09/28/16 23:15 (Lactulose Liq) 30 ml DAILY PRN PO 09/28/16 23:15 Digoxin 0.125 mg 0.125 mg DAILY PO 09/30/16 09:00 Heparin Sodium/ Dextrose 250 ml @ 0 mls/hr TITRATE IV 09/29/16 18:00 09/29/16 20:31 (Cardizem Inj/NS Inj) 125 ml @ 0 mls/hr TITRATE IV 09/29/16 19:15 09/30/16 03:57 Silver Sulfadiazine 1 applic 1 applic Q12HR TOPICAL 09/29/16 21:00 (Cordarone Inj/ D5W Inj) 250 ml @ 0 mls/hr CONTINUOUS IV 09/29/16 20:15 09/29/16 21:54 Vital Signs / I&O Vital Signs Date Time Temp Pulse Resp B/P Pulse Ox O2 Delivery O2 Flow Rate FiO2 09/30/16 06:00 126 09/30/16 04:00 98.7 125 22 150/93 96 09/30/16 04:00 125 09/30/16 02:00 126 09/30/16 00:00 98.1 124 20 137/87 90 09/30/16 00:00 124 09/29/16 22:00 121 09/29/16 20:00 129 09/29/16 20:00 98.4 129 32 112/76 92 09/29/16 18:00 127 09/29/16 16:00 127 09/29/16 16:00 98.2 127 17 99/62 97 09/29/16 14:00 127 09/29/16 12:00 98.4 134 16 104/69 96 09/29/16 12:00 134 09/29/16 10:00 133 09/29/16 08:00 135 09/29/16 08:00 98.3 133 16 106/71 95 I/O 09/29/16 09/29/16 09/29/16 09/30/16 09/30/16 09/30/16 06:59 14:59 22:59 06:59 14:59 22:59 Intake Total 480 ml 857 ml 784 ml 380 ml Output Total 350 ml 350 ml Balance 130 ml 507 ml 784 ml 380 ml Intake Oral 480 ml 720 ml 480 ml 0 ml IV Total 137 ml 304 ml 380 ml Output Urine Total 350 ml 350 ml # Voids 3 2 # Bowel Movements 0 1 Physical Exam GENERAL: Well developed, well nourished. No acute distress. HEENT: Jugular venous pressure is normal. CHEST: Lungs clear to auscultation bilaterally. Unlabored respiratory effort. CARDIAC: Regular rate and rhythm without S3, S4, or murmur. ABDOMEN: Soft, nontender, no hepatosplenomegaly. Bowel sounds present. EXTREMITIES: No clubbing, cyanosis, 1+ edema. Laboratory Laboratory Tests Test 09/29/16 09/30/16 19:00 04:43 White Blood Count 9.6 TH/MM3 Red Blood Count 4.45 MIL/MM3 Hemoglobin 11.8 GM/DL Hematocrit 37.4 % Mean Corpuscular Volume 84.2 FL Mean Corpuscular Hemoglobin 26.5 PG Mean Corpuscular Hemoglobin 31.5 % Concent Red Cell Distribution Width 21.1 % Platelet Count 208 TH/MM3 Mean Platelet Volume 7.8 FL Prothrombin Time 14.1 SEC Prothromb Time International 1.3 RATIO Ratio Activated Partial 30.8 SEC 62.7 SEC Thromboplast Time Imaging Last 72 hours Impressions Chest X-Ray 09/28/162016 Signed Impressions: Service Date/Time: Wednesday, September 28, 2016 20:14 - CONCLUSION: Slight bibasilar atelectasis and/or infiltrate is seen and questionable tiny right pleural effusion. Rhianna Ramirez MD Assessment and Plan Assessment and Plan AF - RVR at 115 this am. Pt on multiple meds for AF at moderate to high dose with poor control -Consult Dr Myrick for consideration of AV node ablation Visual changes- pt with baseline changes and now not sure if there are some new changes -Consult neuro, stop digoxin CHF- cardiorenal syndrome, continue present meds, Barbra Echavarria MD Sep 30, 2016 07:51
[2016-09-30] MEDS: AMIODARONE IV SCH ×2 (07:59)
[2016-09-30] MEDS: SILVER SULFADIAZINE 1% CR 400 GM JAR TOPICAL SCH ×2 (07:59→21:58)
[2016-09-30] MEDS: DEXTROSE 5% IV SCH ×2 (07:59)
[2016-09-30] MEDS: WATER IV SCH ×2 (07:59)
[2016-09-30] MEDS: DOCUSATE SODIUM 50 MG/SENNA 8.6 MG TAB PO SCH ×2 (08:00→21:58)
[2016-09-30] MEDS: DILTIAZEM-CD 180 MG CAP ER PO SCH (08:00)
[2016-09-30] MEDS: PANTOPRAZOLE SOD 20 MG DELAYED RELEASE TAB PO SCH (08:00)
[2016-09-30] MEDS: glipiZIDE 5 MG TAB PO SCH (08:00)
[2016-09-30] MEDS: levETIRAcetam 500 MG TAB PO SCH ×2 (08:02→21:57)
[2016-09-30] MEDS: FUROSEMIDE 40 MG TAB PO SCH (08:03)
[2016-09-30] MEDS: METOPROLOL SUCCINATE 50 MG EXTENDED RELEASE TAB PO SCH (08:14)
[2016-09-30] MEDS ORDERED: DIGOXIN 0.125 MG TAB PO SCH (09:00)
--- NOTE | 2016-09-30 11:19 | MB ---
cc: NICHELLE JOHNSTON DATE OF CONSULTATION 09/30/2016 REASON FOR CONSULTATION Worsening visual field change. HISTORY OF PRESENT ILLNESS Mr. Bolton is a 76-year-old man who has a history of occipital lobe abscess, operated on in 1989, which he states was on the right side. He has had visual changes since that time. He had two seizures for which he takes Keppra. He is now admitted with shortness of breath due to congestive heart failure. He had rapid atrial flutter as well. The patient states he had a vision change this morning where on the right side of his vision he saw a sense of movement where things were moving up and down in a vertical plane lasting several minutes and then ultimately resolving. No other deficits noted. No speech changes or focal weakness or numbness. PAST MEDICAL HISTORY 1. Remarkable for atrial fibrillation. 2. Coronary artery disease. 3. History of occipital abscess. MEDICATIONS 1. Lipitor 80 mg daily. 2. Silvadene. 3. Amiodarone. 4. Diltiazem. 5. IV Heparin. 6. Keppra 5 mg b.i.d. 7. Toprol XL 200 mg daily. 8. Protonix 20 mg daily. 9. Colace. 10. Glucotrol. 11. Ambien. 12. Nitro. 13. Zofran p.r.n. NEUROLOGIC EXAMINATION VITAL SIGNS: Blood pressure is 110/89, pulse is 115, respirations are 24, temperature is 98.1 degrees. HIGHER CORTICAL FUNCTIONS: Normal. CRANIAL NERVES: The right pupil is dilated surgically. Visual durant are grossly intact to gross confrontational testing. extraocular eye movements intact. Other cranial nerves normal. MOTOR EXAM: Exam reveals 5/5 strength of all groups in both upper and lower extremities. There is no drift. Fine motor skills are within normal limits. REFLEXES: Symmetric. LABORATORY DATA The white count is 9600, hemoglobin 11.8, hematocrit 37%, platelet count 208,000. Sodium is 141, potassium 4, chloride 102, CO2 30, the BUN is 25, creatinine 1.65, GFR is 41, glucose is 121. Troponin 0.36. INR 1.3. APTT 62.7. IMPRESSION Intermittent visual field change, possible focal seizure, rule out CVA. RECOMMENDATIONS 1. I would like to get a CTA of the brain. The patient has a pacemaker and cannot have cannot have an MRI. 2. I would also like to get an EEG. 3. For the possibility of seizures, we will raise the Keppra dose 1000 mg b.i.d. Thank you for asking us to see this nice patient. MD COLTON Chinchilla/ERIKA /10:56 AM /11:12 AM
[2016-09-30] MEDS ORDERED: DEXTROSE 50% IN WATER 50 ML VIAL(D50) IV PRN (15:45)
[2016-09-30] MEDS ORDERED: GLUCAGON 1 MG/ML VIAL OTHER PRN (15:45)
--- NOTE | 2016-09-30 15:55 | HHI.CCPN ---
Subjective Remarks/Hospital Course 68-year-old male with history of hypertension, dyslipidemia, and diabetes, coronary artery disease, A. fib and CHF presents today here with shortness of breath. Patient has had approximately one week of dyspnea mostly exertional and when laying flat. Patient states he has not been able lay flat and instead lays on his side to sleep. He denies any cough or chest congestion. No chest pain. No increase in peripheral edema. He has had recent ablation by Dr. Myrick and his county records management officer is Dr. Echavarria. A fib RVR persists in 130s on Cardizem drip 15 mg/hr, metoprolol 200 XL daily, digoxin load per cardiology. Denies CP/SOB. On RA Subjective: 09/30: Afebrile. Heart rate currently in the 1teens. Some visual changes as answered digoxin discontinued. Digoxin level pending. Neurology consulted and recommended CT of the brain. Increase Keppra to thousand grams twice a day and ordered EEG. Remains on amiodarone and Cardizem drips Objective Vital Signs Date Time Temp Pulse Resp B/P Pulse Ox O2 Delivery O2 Flow Rate FiO2 09/30/16 14:00 116 09/30/16 12:00 98.3 24 142/89 93 09/28/16 23:01 Nasal Cannula 2 Intake and Output 09/29/16 09/29/16 09/30/16 08:00 16:00 00:00 Intake Total 480 ml 857 ml 784 ml Output Total 350 ml 350 ml Balance 130 ml 507 ml 784 ml Result Diagram: 09/29/16 1900 09/29/16 0330 Imaging Last Impressions Chest X-Ray 09/28/162016 Signed Impressions: Service Date/Time: Wednesday, September 28, 2016 20:14 - CONCLUSION: Slight bibasilar atelectasis and/or infiltrate is seen and questionable tiny right pleural effusion. Rhianna Ramirez MD Objective Remarks GENERAL: Patient is a 76-year-old male, resting in bed in no acute distress SKIN: Warm and dry. Well perfused and no rash HEAD: Normocephalic. EYES: Right pupil irregular, ~5 mm and nonreactive secondary to known cataract/ detached retina. Left pupil 2 mm and reactive. No scleral icterus. No injection or drainage. NECK: Supple, trachea midline. No JVD or lymphadenopathy. No carotid bruits CARDIOVASCULAR: Tachycardia, IR. S1, S2 no S4. Without murmur RESPIRATORY: Few coarse crackles appreciated left lower lobe. No wheezing. Excursion GASTROINTESTINAL: Abdomen soft, non-tender, nondistended. Active bowel sounds are present MUSCULOSKELETAL: No cyanosis. 1+ pedal edema. Peeling skin on anterior aspect of ankles and proximal dorsum of foot bilaterally. Early blistering on distal tib/fib demarcated NEURO: Awake and alert, hard of hearing, oriented x4. Moving all extremities spontaneously without focal deficit. Blurry vision A/P Assessment and Plan NEURO/PSYCH: Seizure disorder Visual changes - medication versus seizure versus CVA History of right cataract/detached retina History of CVA Neurology consulted/Dr. Burnett Recommended CT brain rule out thrombus Increase Keppra 500 mg by mouth twice a day to 1 g by mouth twice daily. EEG has been ordered RESP: Nasal cannula if needed to maintain saturations greater than equal to 92% Incentive spirometry while awake Currently on room air Chest x-ray revealed possible left lower lobe infiltrate/effusion CV: Atrial fibrillation with rapid ventricular response Chronic systolic heart failure History of AICD/[facility] Coronary artery diseasepost stent 3 Dyslipidemia Hypertension - Continue metoprolol XL 200 daily -On cardizem 180 mg by mouth daily. Cardizem drip current a 15 mill grams an hour along with amiodarone drip at 0.5 mg/m Yesterday, digoxin load has been added by cardiology. Follow-up digoxin level to be done in AM. Was discontinued secondary to vision changes Holding clonidine 0.2 mg by mouth twice a day Was on xarelto as outpatient. Was started on heparin drip for anticoagulation in event that anticoagulation would need to be held for procedure and with low gfr on admission (though now gfr improving). - Further per patient's cardiologists (Dr. Thomason consulted Dr. Myrick 09/30 ) - Patient is status post ablation 3 -Troponin elevation peaked at 0.44 without CP/SOB likely secondary to RVR no further workup planned from that standpoint. Echo 02/19/13ejection fraction 35-40%. Hypokinesis inferolateral myocardium, lateral myocardium, posterior myocardium. Mild MR/TR. Pulmonary artery peak pressure 38. - Continue Lasix 40 mg by mouth daily . Holding potassium chloride 20 mEq twice a day GI: GERD Diverticulosis history of diverticulitis 1999 ADA diet. Continue PPI on Protonix 20 mg by mouth daily. On Prilosec 20 minutes by mouth daily at home Ingrid-Colace for bowel regimen FEN/RENAL: NARCISO overlying CKD stage III History of nephrolithiasis Creatinine currently 1.65. Accurate I's and O's Monitor urine output ID: Monitor for signs and symptoms of infection HEME: Chronic anemia normocytic anemia Chronic Xarelto use Monitor CBC No indications for transfusion of blood products at this time SKIN: Partial thickness Sunburn bilateral feet/ankle/left peña Silvadene cream bid. ENDO: Diabetes mellitus Glipizide 5 mill grams by mouth daily will be held Home NPH level held as well Currently on slight scale insulin/fentanyl with Accu-Cheks before meals/at bedtime to maintain euglycemia PROPH: Heparin drip as per above will also provide DVT prophylaxis. Protonix 20 mg daily for stress ulcer prophylaxis and history of GERD ACCESS: Peripheral IV. Central line if indicated Level 2 follow-up DVT GI prophylaxis - Teds SCDs early aggressive mobilization Xarelto - Omeprazole Critical Care: The total critical care time was 35 minutes. Time to perform other separately billable procedures was not included in the critical care time. Mike Muñoz MD Sep 30, 2016 15:55
[2016-09-30] MEDS: INSULIN NovoLIN REGULAR SUPPLEMENTAL SCALE SQ SCH ×2 (16:00→22:00)
--- NOTE | 2016-09-30 17:47 | RADRPT ---
EXAM DATE/TIME: 09/30/2016 17:22 [facility] COMPARISON: No previous studies available for comparison. INDICATIONS : Weakness, history of seizures. RADIATION DOSE: 38.51 CTDIvol (mGy) MEDICAL HISTORY : Stroke. Seizures. Cardiovascular disease SURGICAL HISTORY : Cholecystectomy. Pacemaker. ENCOUNTER: Initial ACUITY: 1 day PAIN SCALE: 0/10 LOCATION: cranial TECHNIQUE: Multiple contiguous axial images were obtained of the head. Using automated exposure control and adj ustment of the mA and/or kV according to patient size, radiation dose was kept as low as reasonably a chievable to obtain optimal diagnostic quality images. DICOM format image data is available electro nically for review and comparison. FINDINGS: CEREBRUM: 2.7 cm area of encephalomalacia in the posterior right temporal lobe . 1 cm area of hypodensity in th e right frontal lobe likely old stroke. The ventricles are normal for age. No evidence of midline sh ift, mass lesion, hemorrhage or acute infarction. No extra-axial fluid collections are seen. POSTERIOR FOSSA: The cerebellum and brainstem are intact. The 4th ventricle is midline. The cerebellopontine angle i s unremarkable. EXTRACRANIAL: The visualized portion of the orbits is intact. SKULL: The calvaria is intact. No evidence of skull fracture. Surgery to the right globe. Previous right te mporal craniotomy. CONCLUSION: Area of encephalomalacia in the posterior right temporal lobe and right frontal lobe consistent with old strokes. No evidence of acute hemorrhage or edema. Franco Shore MD on September 30, 2016 at 17:43 Board Certified Radiologist. This report was verified electronically.
[2016-09-30 19:36] LABS: APTT (PATIENT) 30.3 SEC (24.3-30.1)
--- NOTE | 2016-09-30 20:01 | EKG ---
Date Performed: 09/29/2016 Time Performed: 16:31:28 PTAGE: 76 years EKG: ATRIAL FLUTTER/TACHYCARDIA WITH RAPID VENTRICULAR RESPONSE RIGHT BUNDLE BRANCH BLOCK LEFT A NTERIOR FASCICULAR BLOCK PROBABLE ANTERIOR MYOCARDIAL INFARCTION , OF INDETERMINATE AGE MARKED ST DEP RESSION, CONSIDER SUBENDOCARDIAL INJURY ABNORMAL ECG PREVIOUS TRACING : 09/29/2016 12.05 Since previous tracing, no significant change noted DOCTOR: Key Tapia Interpretating Date/Time 09/30/2016 20:00:37
--- NOTE | 2016-09-30 20:01 | EKG ---
Date Performed: 09/29/2016 Time Performed: 12:05:00 PTAGE: 76 years EKG: ATRIAL FLUTTER/TACHYCARDIA WITH RAPID VENTRICULAR RESPONSE RIGHT BUNDLE BRANCH BLOCK LEFT A NTERIOR FASCICULAR BLOCK MARKED ST DEPRESSION, CONSIDER SUBENDOCARDIAL INJURY ABNORMAL ECG PREVIOUS TRACING : 09/29/2016 07.40 Since previous tracing, no significant change noted DOCTOR: Key Tapia Interpretating Date/Time 09/30/2016 20:00:25
[2016-09-30] MEDS: SODIUM CHLORIDE 0.9% FLUSH 10 ML FLUSH SCH (21:57)
[2016-09-30] MEDS: ATORVASTATIN 80 MG TAB PO SCH (21:57)
[2016-09-30] MEDS: HEPARIN-D5W INJ 250 ML IV SCH (22:01)
[2016-10-01] VITALS (20 sets, daily range): BP systolic 108–146; BP diastolic 56–85; PULSE 60–119; RESP 21–34; TEMP 98–98.8; O2SAT 88–96
[2016-10-01] MEDS: DILTIAZEM INJ 125 MG in SODIUM CHLORIDE 0.9% INJ 100 ML IV SCH ×2 (01:28→06:36)
[2016-10-01] MEDS: CHLORHEXIDINE GLUCONATE 2 % 1 PACK (2 CLOTHS) TOP SCH (01:28)
[2016-10-01 04:26] LABS: BASOPHIL # 0.1 TH/MM3 (0-0.2); BASOPHIL % 0.8 % (0.0-2.0); EOSINOPHIL % 0.3 % (0.0-4.0); HEMATOCRIT 39.7 % (39.0-51.0); HEMO FLAGS DIFF FINAL; LYMPH % 12.4 % (9.0-44.0); LYMPHOCYTE # 1.3 TH/MM3 (1.0-4.8); MEAN CELL VOLUME 83.3 FL (80.0-100.0); MEAN CORPUSCULAR HEMOGLOBIN 26.6 PG (27.0-34.0); MEAN CORPUSCULAR HGB CONC 31.9 % (32.0-36.0); MONO % 10.2 % (0.0-8.0); NEUT % 76.3 % (16.0-70.0); PLATELET COUNT 210 TH/MM3 (150-450); RED BLOOD COUNT 4.76 MIL/MM3 (4.50-5.90); RED CELL DISTRIBUTION WIDTH 21.5 % (11.6-17.2); WHITE BLOOD COUNT 10.5 TH/MM3 (4.0-11.0)
[2016-10-01 04:35] LABS: APTT (PATIENT) 70.9 SEC (24.3-30.1)
[2016-10-01 04:58] LABS: ALT (GPT) 26 U/L (12-78); ANION GAP 10 MEQ/L (5-15); AST (GOT) 24 U/L (15-37); BICARBONATE 29.2 MEQ/L (21.0-32.0); BLOOD UREA NITROGEN 25 MG/DL (7-18); CHLORIDE 100 MEQ/L (98-107); GLOMERULAR FILTRATION RATE 43 ML/MIN (>89); MAGNESIUM 2.2 MG/DL (1.5-2.5); POTASSIUM 3.7 MEQ/L (3.5-5.1); SODIUM (NA) 139 MEQ/L (136-145)
[2016-10-01 05:12] LABS: ALKALINE PHOSPHATASE 111 U/L (45-117); CREATINE KINASE 187 U/L (39-308); DIGOXIN 1.1 NG/ML (0.8-2.0)
--- NOTE | 2016-10-01 05:13 | MG ---
cc: GLEN HARRIS Lab No: Date: 09/30/2016 Age: 76 Sex: M Race: DATE OF [address] Burnett MEDICAL HISTORY History of seizure, cataract, stroke, diabetes, dizziness, syncope, congestive heart failure, CO, arthritis, alcohol use, history of brain abscess. MEDICATIONS 1. Lipitor. 2. Amiodarone. 3. Diltiazem. 4. Heparin. 5. Lasix. 6. Keppra. 7. Toprol. 8. Protonix. 9. Albuterol. DESCRIPTION OF EEG RECORDING The background activity is 9-10 Hz alpha, located posteriorly, attenuated bilaterally and symmetrically to eye opening. Superimposed by excess beta activity. The EEG recording was contaminated with excessive muscle artifact. There is a breach rhythm at T4 during the entire recording. Hyperventilation was not done. Photic stimulation did not elicit a driving response. There were no electrographic seizures or epileptiform discharges noted. INTERPRETATION This is an awake EEG recording. A breach rhythm may indicate a structural lesion at the right temporal region. The absence of electrographic seizures or epileptiform discharges does not rule out diagnosis of epilepsy. Clinical correlation is recommended. MD BRIDGET Bryan/ERIKA /7:37 PM /5:06 AM MTDAustin
[2016-10-01] MEDS: INSULIN NovoLIN REGULAR SUPPLEMENTAL SCALE SQ SCH ×4 (06:29→22:13)
--- NOTE | 2016-10-01 06:30 | RADRPT ---
EXAM DATE/TIME: 10/01/2016 05:10 [facility] COMPARISON: CHEST SINGLE AP, September 28, 2016, 20:14. INDICATIONS : Short of breath. MEDICAL HISTORY : Hypercholesterolemia. Diabetes mellitus type II. Cardiovascular disease. SURGICAL HISTORY : Pacemaker. ENCOUNTER: Subsequent ACUITY: 1 week PAIN SCORE: Non-responsive. LOCATION: Bilateral chest FINDINGS: There continue to be infiltrates in both lung bases. This is about the same compared to the prior exa m. The upper lung durant remain clear. The heart size is enlarged but stable. There is a pacemaker ov erlying the left chest. There is no evidence of pneumothorax. CONCLUSION: There continues to be bibasilar infiltrates without significant change. Jagdish Burton MD on October 01, 2016 at 6:28 Board Certified Radiologist. This report was verified electronically.
--- NOTE | 2016-10-01 07:03 | MB ---
cc: DO Linh BARRIENTOS MD, HANSCY M.D. BARTHOLOMEW, BETH A. MD DATE OF CONSULTATION 09/30/2016 REASON FOR CONSULTATION Electrophysiology consult. HISTORY OF PRESENT ILLNESS Mr. Bolton is a 76-year-old gentleman with congestive heart failure, atrial fibrillation, previous ablation in 2012. He had another ablation in 2016. He had a cardioversion in May. He was readmitted due to atrial fibrillation with fast ventricular response. Heart rate is very difficult to control. I was consulted for evaluation and management. The chart was reviewed. The patient was evaluated. ALLERGIES None. SOCIAL HISTORY Negative for smoking and drinking. FAMILY HISTORY Noncontributory to his current medical condition. MEDICATIONS 1. Heparin. 2. Cardizem. 3. Amiodarone. 4. He did receive digoxin. PHYSICAL EXAMINATION GENERAL: Alert, fully oriented. VITAL SIGNS: His blood pressure is 145/86, pulse around 116, respiratory rate 20. LUNGS: Ventilated. CARDIOVASCULAR: S1, S2. Tachycardia, irregular. ABDOMEN: Soft. No mass. Obese. EXTREMITIES: No edema. ELECTROCARDIOGRAM Atrial fibrillation, left atrial tachyarrhythmia. LABORATORY DATA Hemoglobin is 11.8, white blood cell 9.6. Potassium 4.0, creatinine 1.65. Troponin 0.36. Magnesium 2.2. INR 1.3. ASSESSMENT AND RECOMMENDATIONS Mr. Bolton's heart rate is very difficult to control. He is on anticoagulation that was held for possible procedure and put on heparin IV. Apparently Dr. Echavarria discussed the AV node modification. The gentleman already has a defibrillator. He does not want this procedure for now. He has a previous ablation around March 2016. Right now I am going to try Tikosyn. If the patient cannot be controlled on Tikosyn, then I will attempt another atrial tachyarrhythmia ablation. At this point, AV node modification is our last resort. Case extensively discussed with him. I will closely monitor him during the hospitalization. Leonel Myrick MD HS/SSB /6:57 PM /7:00 AM
--- NOTE | 2016-10-01 08:28 | PD.CARD.PN ---
Subjective Subjective Remarks Feels okay. Objective Medications Current Medications Medications (Trade) Dose Ordered Sig/Jaz Route Start Time Stop Time Status Last Admin (Lipitor) 80 mg HS PO 09/29/16 21:00 09/30/16 21:57 (Cardizem Cd) 180 mg DAILY PO 09/29/16 09:00 09/30/16 08:00 (Lasix) 40 mg DAILY PO 09/29/16 09:00 09/30/16 08:03 (Toprol Xl) 200 mg DAILY PO 09/29/16 09:00 09/30/16 08:14 (Protonix) 20 mg DAILY PO 09/29/16 09:00 09/30/16 08:00 (NS Flush) 2 ml UNSCH PRN .XX 09/28/16 23:15 (NS Flush) 2 ml BID .XX 09/29/16 09:00 09/30/16 21:57 (Tylenol) 650 mg Q6H PRN PO 09/28/16 23:15 (Zofran Inj) 4 mg Q6H PRN IV 09/28/16 23:15 (Ambien) 5 mg HS PRN PO 09/28/16 23:15 Miscellaneous Information 1 Q361D XX 09/28/16 23:15 09/28/16 23:15 (Chlorhexidine 2% Cloth) 3 pack Taper DAILY@04 TOP 09/29/16 04:00 09/25/17 03:59 10/01/16 01:28 (Chlorhexidine 2% Cloth) 3 pack UNSCH PRN TOP 09/28/16 23:15 (Ingrid-Colace) 1 tab BID PO 09/29/16 09:00 09/30/16 21:58 (Milk Of Magnesia Liq) 30 ml Q12H PRN PO 09/28/16 23:15 (Senokot) 17.2 mg Q12H PRN PO 09/28/16 23:15 (Dulcolax Supp) 10 mg DAILY PRN RECTAL 09/28/16 23:15 Lactulose 30 ml 30 ml DAILY PRN PO 09/28/16 23:15 Heparin Sodium/ Dextrose 250 ml @ 0 mls/hr TITRATE IV 09/29/16 18:00 09/30/16 22:01 (Cardizem Inj/NS Inj) 125 ml @ 0 mls/hr TITRATE IV 09/29/16 19:15 10/01/16 06:36 (Silvadene 1% Cream (400 Gm)) 1 applic Q12HR TOPICAL 09/29/16 21:00 09/30/16 21:58 (Keppra) 1,000 mg BID PO 09/30/16 21:00 09/30/16 21:57 (D50w (Vial) Inj) 50 ml UNSCH PRN IV 09/30/16 15:45 (Glucagon Inj) 1 mg UNSCH PRN OTHER 09/30/16 15:45 (Tikosyn) 500 mcg BID PO 10/01/16 21:00 Vital Signs / I&O Vital Signs Date Time Temp Pulse Resp B/P Pulse Ox O2 Delivery O2 Flow Rate FiO2 10/01/16 08:00 114 10/01/16 08:00 98.8 60 22 115/56 88 10/01/16 06:00 62 10/01/16 04:00 98.0 92 22 108/79 92 10/01/16 04:00 60 10/01/16 02:00 61 10/01/16 00:00 98.7 60 22 115/56 88 10/01/16 00:00 60 09/30/16 22:00 65 09/30/16 20:00 114 09/30/16 20:00 98.8 60 22 115/56 88 09/30/16 16:00 116 09/30/16 16:00 98.3 112 18 145/86 97 09/30/16 16:00 98.3 112 22 145/86 96 09/30/16 15:00 114 22 144/85 97 09/30/16 14:29 113 29 146/94 92 09/30/16 14:00 112 20 90 09/30/16 14:00 116 09/30/16 13:00 115 24 93 09/30/16 12:00 115 56 92 09/30/16 12:00 116 09/30/16 12:00 98.3 114 24 142/89 93 09/30/16 11:00 116 24 93 09/30/16 10:00 115 39 133/84 91 09/30/16 10:00 116 09/30/16 09:36 115 28 139/89 93 09/30/16 09:00 115 42 90 I/O 09/30/16 09/30/16 09/30/16 10/01/16 10/01/16 10/01/16 07:00 15:00 23:00 07:00 15:00 23:00 Intake Total 380 ml 545 ml 405 ml 313 ml Output Total 425 ml 700 ml 800 ml Balance 380 ml 120 ml -295 ml -487 ml Intake Oral 0 ml 120 ml 300 ml 0 ml IV Total 380 ml 425 ml 105 ml 313 ml Output Urine Total 425 ml 700 ml 800 ml # Voids 2 2 # Bowel Movements 1 0 Physical Exam GENERAL: Well-nourished, well-developed patient. SKIN: Warm and dry. HEAD: Normocephalic. EYES: No scleral icterus. No injection or drainage. NECK: Supple, trachea midline. No JVD or lymphadenopathy. CARDIOVASCULAR: Regular rhythm, tachycardic rate, no rub murmur or gallop. RESPIRATORY: Breath sounds equal bilaterally. No accessory muscle use. GASTROINTESTINAL: Abdomen soft, non-tender, nondistended. EXTREMITIES: No cyanosis, or edema. NEUROLOGICAL: Awake, alert, and oriented x 3. Non-focal. Laboratory Laboratory Tests Test 09/30/16 10/01/16 19:00 04:15 Activated Partial 30.3 SEC 70.9 SEC Thromboplast Time White Blood Count 10.5 TH/MM3 Red Blood Count 4.76 MIL/MM3 Hemoglobin 12.7 GM/DL Hematocrit 39.7 % Mean Corpuscular Volume 83.3 FL Mean Corpuscular Hemoglobin 26.6 PG Mean Corpuscular Hemoglobin 31.9 % Concent Red Cell Distribution Width 21.5 % Platelet Count 210 TH/MM3 Mean Platelet Volume 7.2 FL Neutrophils (%) (Auto) 76.3 % Lymphocytes (%) (Auto) 12.4 % Monocytes (%) (Auto) 10.2 % Eosinophils (%) (Auto) 0.3 % Basophils (%) (Auto) 0.8 % Neutrophils # (Auto) 8.0 TH/MM3 Lymphocytes # (Auto) 1.3 TH/MM3 Monocytes # (Auto) 1.1 TH/MM3 Eosinophils # (Auto) 0.0 TH/MM3 Basophils # (Auto) 0.1 TH/MM3 CBC Comment DIFF FINAL Differential Comment Sodium Level 139 MEQ/L Potassium Level 3.7 MEQ/L Chloride Level 100 MEQ/L Carbon Dioxide Level 29.2 MEQ/L Anion Gap 10 MEQ/L Blood Urea Nitrogen 25 MG/DL Creatinine 1.56 MG/DL Estimat Glomerular Filtration 43 ML/MIN Rate Random Glucose 115 MG/DL Calcium Level 9.1 MG/DL Phosphorus Level 3.3 MG/DL Magnesium Level 2.2 MG/DL Total Bilirubin 1.0 MG/DL Aspartate Amino Transf 24 U/L (AST/SGOT) Alanine Aminotransferase 26 U/L (ALT/SGPT) Alkaline Phosphatase 111 U/L Total Creatine Kinase 187 U/L Troponin I 0.37 NG/ML Total Protein 7.3 GM/DL Albumin 3.7 GM/DL Thyroid Stimulating Hormone 1.660 uIU/ML 3rd Gen Digoxin Level 1.1 NG/ML Imaging Last Impressions Chest X-Ray 10/01/16 0600 Signed Impressions: Service Date/Time: Saturday, October 01, 2016 05:10 - CONCLUSION: There continues to be bibasilar infiltrates without significant change. Jagdish Burton MD Head CT 09/30/16 0000 Signed Impressions: Service Date/Time: Friday, September 30, 2016 17:22 - CONCLUSION: Area of encephalomalacia in the posterior right temporal lobe and right frontal lobe consistent with old strokes. No evidence of acute hemorrhage or edema. Franco Shore MD Assessment and Plan Problem List: (1) Atrial fibrillation with rapid ventricular response Assessment and Plan: Status post redo ablation March 2016. His heart rate remains elevated. Amiodarone stopped yesterday and anticoagulation held pending possible procedure. At this time he is on IV heparin for thromboembolic prophylaxis. Plan is to initiate dofetilide after allowing for amiodarone clearance. AV node modification is not planned at this time. This is a last resort procedure and patient wishes to try more conservative measures first. Assessment and plan per my discussion with Dr. Elen RN and patient. Tona Rowland Oct 01, 2016 08:28
[2016-10-01] MEDS: DILTIAZEM-CD 180 MG CAP ER PO SCH (08:37)
[2016-10-01] MEDS: PANTOPRAZOLE SOD 20 MG DELAYED RELEASE TAB PO SCH (08:37)
[2016-10-01] MEDS: METOPROLOL SUCCINATE 50 MG EXTENDED RELEASE TAB PO SCH (08:37)
[2016-10-01] MEDS: DOCUSATE SODIUM 50 MG/SENNA 8.6 MG TAB PO SCH ×2 (08:37→20:02)
[2016-10-01] MEDS: levETIRAcetam 500 MG TAB PO SCH ×2 (08:41→20:02)
[2016-10-01] MEDS: SILVER SULFADIAZINE 1% CR 400 GM JAR TOPICAL SCH ×2 (08:41→20:11)
[2016-10-01] MEDS: FUROSEMIDE 40 MG TAB PO SCH (08:41)
[2016-10-01] MEDS ORDERED: POTASSIUM CHLORIDE 10 MEQ CONTROLLED RELEASE TAB PO ONE (13:00)
[2016-10-01] MEDS ORDERED: METOPROLOL TARTRATE 5 MG/5 ML VIAL IV PUSH ONE (13:00)
--- NOTE | 2016-10-01 13:09 | HHI.CCPN ---
Subjective Remarks/Hospital Course 76-year-old male with history of hypertension, dyslipidemia, and diabetes, coronary artery disease, A. fib and CHF presents today here with shortness of breath. Patient has had approximately one week of dyspnea mostly exertional and when laying flat. Patient states he has not been able lay flat and instead lays on his side to sleep. He denies any cough or chest congestion. No chest pain. No increase in peripheral edema. He has had recent ablation by Dr. Myrick and his braille teacher is Dr. Echavarria. A fib RVR persists in 130s on Cardizem drip 15 mg/hr, metoprolol 200 XL daily, digoxin load per cardiology. Denies CP/SOB. On RA 09/30: Afebrile. Heart rate currently in the 1teens. Some visual changes as answered digoxin discontinued. Digoxin level pending. Neurology consulted and recommended CT of the brain. Increase Keppra to thousand grams twice a day and ordered EEG. Remains on amiodarone and Cardizem drips Subjective: 10/01: Afebrile. Amiodarone drip discontinued yesterday. Plan to initiate Tikosyn per EPS. Heart rate currently at 119. Hemodynamically stable. Vision is improved. Objective Vital Signs Date Time Temp Pulse Resp B/P Pulse Ox O2 Delivery O2 Flow Rate FiO2 10/01/16 12:30 119 29 94 10/01/16 12:00 98.3 120/82 09/28/16 23:01 Nasal Cannula 2 Intake and Output 09/30/16 09/30/16 10/01/16 08:00 16:00 00:00 Intake Total 380 ml 545 ml 405 ml Output Total 425 ml 700 ml Balance 380 ml 120 ml -295 ml Result Diagram: 10/01/16 0415 10/01/16 0415 Imaging Last Impressions Chest X-Ray 10/01/16 0600 Signed Impressions: Service Date/Time: Saturday, October 01, 2016 05:10 - CONCLUSION: There continues to be bibasilar infiltrates without significant change. Jagdish Burton MD Head CT 09/30/16 0000 Signed Impressions: Service Date/Time: Friday, September 30, 2016 17:22 - CONCLUSION: Area of encephalomalacia in the posterior right temporal lobe and right frontal lobe consistent with old strokes. No evidence of acute hemorrhage or edema. Franco A. Sevigny, MD Objective Remarks GENERAL: Patient is a 76-year-old male, resting in bed in no acute distress SKIN: Warm and dry. Well perfused and no rash HEAD: Normocephalic. EYES: Right pupil irregular, ~5 mm and nonreactive secondary to known cataract/ detached retina. Left pupil 2 mm and reactive. No scleral icterus. No injection or drainage. NECK: Supple, trachea midline. No JVD or lymphadenopathy. No carotid bruits CARDIOVASCULAR: Tachycardia, IR. S1, S2 no S4. Without murmur RESPIRATORY: Few coarse crackles appreciated left lower lobe. No wheezing. Excursion GASTROINTESTINAL: Abdomen soft, non-tender, nondistended. Active bowel sounds are present MUSCULOSKELETAL: 1+ to 2+ pedal edema. Peeling skin on anterior aspect of ankles and proximal dorsum of foot bilaterally. Evolving blistering on distal tib/fib demarcated NEURO: Awake and alert, hard of hearing,. Strength is equal symmetric. Gait is normal. Moving all extremities spontaneously without focal deficit. A/P Assessment and Plan NEURO/PSYCH: Seizure disorder Visual changes - medication versus seizure versus CVA History of right cataract/detached retina History of CVA Neurology consulted/Dr. Burnett Recommended CT brain rule out thrombus. 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 EEG 09/30 revealed no epileptic activity RESP: Nasal cannula if needed to maintain saturations greater than equal to 92% Incentive spirometry while awake Currently on room air Chest x-ray revealed possible left lower lobe infiltrate/effusion CV: Atrial fibrillation with rapid ventricular response Chronic systolic heart failure History of AICD/[facility] Coronary artery diseasepost stent 3 Dyslipidemia Hypertension - Continue metoprolol XL 200 daily -On cardizem 180 mg by mouth daily. Cardizem drip current at 20 mill grams an hour Amiodarone discontinued yesterday Yesterday, digoxin load has been added by cardiology. Follow-up digoxin level to be done in AM was 1.1. Was discontinued on 09/30 secondary to vision changes Holding clonidine 0.2 mg by mouth twice a day Continue atorvastatin 80 mg by mouth daily for dyslipidemia Plan for dofetilide 50 mg by mouth twice a day per Dr. Myrick. EPS study for ablation pacemaker if medical management fails. Was on Xarelto as outpatient. Was started on heparin drip for anticoagulation for ICU patient. Will continue - Further per patient's cardiologists (Dr. Thomason consulted Dr. Myrick 09/30 ) - Patient is status post ablation 3 -Troponin elevation peaked at 0.44 without CP/SOB likely secondary to RVR no further workup planned from that standpoint. Echo 02/19/13ejection fraction 35-40%. Hypokinesis inferolateral myocardium, lateral myocardium, posterior myocardium. Mild MR/TR. Pulmonary artery peak pressure 38. - Continue Lasix 40 mg by mouth daily . Holding potassium chloride 20 mEq twice a day GI: GERD Diverticulosis history of diverticulitis 1999 ADA diet. To be initiated Continue PPI on Protonix 20 mg by mouth daily. On Prilosec 20 minutes by mouth daily at home Ingrid-Colace for bowel regimen FEN/RENAL: NARCISO overlying CKD stage III History of nephrolithiasis Creatinine currently 1.56. Accurate I's and O's Monitor urine output ID: Monitor for signs and symptoms of infection HEME: Chronic anemia normocytic anemia Chronic Xarelto use Monitor CBC No indications for transfusion of blood products at this time Continue heparin drip DERM: Partial thickness Sunburn bilateral feet/ankle/left peña Silvadene cream bid. ENDO: Diabetes mellitus Glipizide 5 mill grams by mouth daily will be held Home NPH level held as well Currently on sliding scale insulin/fentanyl with Accu-Cheks before meals/at bedtime to maintain euglycemia PROPH: Heparin drip as per above will also provide DVT prophylaxis. Protonix 20 mg daily for stress ulcer prophylaxis and history of GERD ACCESS: Peripheral IV. Central line if indicated Level 2 follow-up DVT GI prophylaxis - Teds SCDs early aggressive mobilization Xarelto - Omeprazole Critical Care: The total critical care time was 35 minutes. Time to perform other separately billable procedures was not included in the critical care time. Mike Muñoz MD Oct 01, 2016 13:09
[2016-10-01 13:57] LABS: APTT (PATIENT) 64.8 SEC (24.3-30.1)
[2016-10-01 19:39] LABS: APTT (PATIENT) 64.2 SEC (24.3-30.1)
[2016-10-01] MEDS: ATORVASTATIN 80 MG TAB PO SCH (20:02)
[2016-10-01] MEDS: POTASSIUM CHLORIDE 10 MEQ CONTROLLED RELEASE TAB PO SCH (20:02)
[2016-10-01] MEDS: SODIUM CHLORIDE 0.9% FLUSH 10 ML FLUSH SCH (20:02)
[2016-10-01] MEDS: HEPARIN-D5W INJ 250 ML IV SCH (20:05)
[2016-10-01] MEDS: DOFETILIDE 250 MCG CAP PO SCH (22:22)
[2016-10-02] VITALS (12 sets, daily range): BP systolic 129–151; BP diastolic 69–81; PULSE 104–119; RESP 19–35; TEMP 97.8–98.6; O2SAT 91–93
[2016-10-02] MEDS: CHLORHEXIDINE GLUCONATE 2 % 1 PACK (2 CLOTHS) TOP SCH ×2 (04:00→21:56)
[2016-10-02 05:35] LABS: HEMATOCRIT 36.8 % (39.0-51.0); MEAN CELL VOLUME 83.4 FL (80.0-100.0); MEAN CORPUSCULAR HEMOGLOBIN 26.6 PG (27.0-34.0); MEAN CORPUSCULAR HGB CONC 31.9 % (32.0-36.0); PLATELET COUNT 183 TH/MM3 (150-450); RED BLOOD COUNT 4.41 MIL/MM3 (4.50-5.90); RED CELL DISTRIBUTION WIDTH 21.5 % (11.6-17.2); REVIEW FLAG FINAL; WHITE BLOOD COUNT 15.7 TH/MM3 (4.0-11.0)
[2016-10-02 06:09] LABS: BICARBONATE 28.1 MEQ/L (21.0-32.0); MAGNESIUM 2.4 MG/DL (1.5-2.5); POTASSIUM 3.8 MEQ/L (3.5-5.1)
[2016-10-02 06:19] LABS: APTT (PATIENT) 60.7 SEC (24.3-30.1)
[2016-10-02] MEDS: INSULIN NovoLIN REGULAR SUPPLEMENTAL SCALE SQ SCH ×4 (06:44→21:00)
--- NOTE | 2016-10-02 08:33 | EKG ---
Date Performed: 10/02/2016 Time Performed: 07:22:17 PTAGE: 76 years EKG: Sinus rhythm PACs RIGHT BUNDLE BRANCH BLOCK LEFT ANTERIOR FASCICULAR BLOCK MARKED ST DEPRESSION, CONSIDER SUBEND OCARDIAL INJURY ABNORMAL ECG PREVIOUS TRACING : 10/01/2016 22.17 DOCTOR: Franco Mccallum Interpretating Date/Time 10/02/2016 08:31:46
--- NOTE | 2016-10-02 08:55 | EKG ---
Date Performed: 10/01/2016 Time Performed: 22:17:38 PTAGE: 76 years EKG: SINUS TACHYCARDIA RIGHT BUNDLE BRANCH BLOCK LEFT ANTERIOR FASCICULAR BLOCK POSSIBLE ANTERIO R MYOCARDIAL INFARCTION , OF INDETERMINATE AGE MARKED ST DEPRESSION, CONSIDER SUBENDOCARDIAL INJURY ABNORMAL ECG PREVIOUS TRACING : 09/29/2016 23.31 DOCTOR: Franco Mccallum Interpretating Date/Time 10/02/2016 08:54:03
[2016-10-02] MEDS: METOPROLOL SUCCINATE 50 MG EXTENDED RELEASE TAB PO SCH (09:46)
[2016-10-02] MEDS: DOFETILIDE 250 MCG CAP PO SCH ×2 (09:46→21:56)
[2016-10-02] MEDS: DILTIAZEM-CD 180 MG CAP ER PO SCH (09:46)
[2016-10-02] MEDS: DOCUSATE SODIUM 50 MG/SENNA 8.6 MG TAB PO SCH ×2 (09:46→21:55)
[2016-10-02] MEDS: PANTOPRAZOLE SOD 20 MG DELAYED RELEASE TAB PO SCH (09:47)
[2016-10-02] MEDS: FUROSEMIDE 40 MG TAB PO SCH (09:47)
[2016-10-02] MEDS: POTASSIUM CHLORIDE 10 MEQ CONTROLLED RELEASE TAB PO SCH ×2 (09:47→21:55)
[2016-10-02] MEDS: levETIRAcetam 500 MG TAB PO SCH ×2 (09:47→21:56)
[2016-10-02] MEDS: SODIUM CHLORIDE 0.9% FLUSH 10 ML FLUSH SCH ×2 (09:48→21:56)
[2016-10-02] MEDS: SILVER SULFADIAZINE 1% CR 400 GM JAR TOPICAL SCH ×2 (09:48→21:56)
--- NOTE | 2016-10-02 10:38 | EKG ---
Date Performed: 09/29/2016 Time Performed: 23:31:08 PTAGE: 76 years EKG: Possible atrial flutter with rapid ventricular response. Left axis deviation RBBB with left anterior fascicular block Inferior infarct - age undetermined Lateral ST-T changes may be due to evert cardial ischemia Abnormal ECG PREVIOUS TRACING : 09/29/2016 16.31 DOCTOR: Franco Mccallum Interpretating Date/Time 10/02/2016 10:38:17
[2016-10-02] MEDS ORDERED: POTASSIUM CHLORIDE 20 MEQ CONTROLLED RELEASE TAB PO ONE (12:45)
--- NOTE | 2016-10-02 12:57 | HHI.CCPN ---
Subjective Remarks/Hospital Course 76-year-old male with history of hypertension, dyslipidemia, and diabetes, coronary artery disease, A. fib and CHF presents today here with shortness of breath. Patient has had approximately one week of dyspnea mostly exertional and when laying flat. Patient states he has not been able lay flat and instead lays on his side to sleep. He denies any cough or chest congestion. No chest pain. No increase in peripheral edema. He has had recent ablation by Dr. Myrick and his land sales agent is Dr. Echavarria. A fib RVR persists in 130s on Cardizem drip 15 mg/hr, metoprolol 200 XL daily, digoxin load per cardiology. Denies CP/SOB. On RA 09/30: Afebrile. Heart rate currently in the 1teens. Some visual changes as answered digoxin discontinued. Digoxin level pending. Neurology consulted and recommended CT of the brain. Increase Keppra to thousand grams twice a day and ordered EEG. Remains on amiodarone and Cardizem drips 10/01: Afebrile. Amiodarone drip discontinued yesterday. Plan to initiate Tikosyn per EPS. Heart rate currently at 119. Hemodynamically stable. Vision is improved. Subjective: 10/02: Afebrile. Off amiodarone and Cardizem drips currently. Currently in sinus tachycardia. Hemodynamically stable. Possible epileptiform activity in EEG. Neurology following. Daughter concerned regarding ICU delirium. Objective Vital Signs Date Time Temp Pulse Resp B/P Pulse Ox O2 Delivery O2 Flow Rate FiO2 10/02/16 12:00 104 10/02/16 08:00 98.2 32 137/69 93 09/28/16 23:01 Nasal Cannula 2 Intake and Output 10/01/16 10/01/16 10/02/16 08:00 16:00 00:00 Intake Total 313 ml 830 ml 380 ml Output Total 800 ml 750 ml Balance -487 ml 80 ml 380 ml Result Diagram: 10/02/16 0439 10/02/16 0439 Imaging Last Impressions Chest X-Ray 10/01/16 0600 Signed Impressions: Service Date/Time: Saturday, October 01, 2016 05:10 - CONCLUSION: There continues to be bibasilar infiltrates without significant change. Jagdish Burton MD Head CT 09/30/16 0000 Signed Impressions: Service Date/Time: Friday, September 30, 2016 17:22 - CONCLUSION: Area of encephalomalacia in the posterior right temporal lobe and right frontal lobe consistent with old strokes. No evidence of acute hemorrhage or edema. Franco Shore MD Objective Remarks GENERAL: Patient is a 76-year-old male, resting in bed in no acute distress SKIN: Warm and dry. Well perfused and no rash HEAD: Normocephalic. EYES: Right pupil irregular, ~4 mm and nonreactive secondary to known cataract/ detached retina. Left pupil 2 mm and reactive. No scleral icterus. No injection or drainage. NECK: Supple, trachea midline. No JVD or lymphadenopathy. No carotid bruits CARDIOVASCULAR: Tachycardia, RR. S1, S2 no S4. Without murmur RESPIRATORY: Few coarse crackles appreciated left lower lobe. No wheezing. Excursion GASTROINTESTINAL: Abdomen soft, non-tender, nondistended. Active bowel sounds are present MUSCULOSKELETAL: 1+ to 2+ pedal edema. Peeling skin on anterior aspect of ankles and proximal dorsum of foot bilaterally covered in Silvadene. Evolving blistering on distal tib/fib demarcated NEURO: Awake and alert, hard of hearing,. Strength is equal symmetric. Gait is normal. Moving all extremities spontaneously without focal deficit. Urinary Catheter: Yes Assessment to: Continue Morrow insert reason: Prolonged Immobilization Vascular Central Line Catheter: No Assessment to: Continue A/P Assessment and Plan NEURO/PSYCH: Seizure disorder Visual changes - medication versus seizure versus CVA History of right cataract/detached retina History of CVA Neurology consulted/Dr. Burnett Recommended CT brain rule out thrombus. 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 EEG 09/30 revealed possible right-sided temporal background acute RESP: Nasal cannula if needed to maintain saturations greater than equal to 92% Incentive spirometry while awake Currently on room air Chest x-ray revealed possible left lower lobe infiltrate/effusion CV: Atrial fibrillation with rapid ventricular response Chronic systolic heart failure History of AICD/[facility] Coronary artery diseasepost stent 3 Dyslipidemia Hypertension - Continue metoprolol XL 200 daily -On cardizem 180 mg by mouth daily. Cardizem drip current discontinued Amiodarone drip discontinued 09/30 09/29, digoxin load was added by cardiology. Follow-up digoxin level to be done in AM was 1.1. Was discontinued on 09/30 secondary to vision changes Holding clonidine 0.2 mg by mouth twice a day for hypertension Continue atorvastatin 80 mg by mouth daily for dyslipidemia Plan for dofetilide 50 mg by mouth twice a day per Dr. Myrick. EPS study for ablation pacemaker if medical management fails. Was on Xarelto as outpatient. Was started on heparin drip for anticoagulation for ICU patient. Will continue - Further per patient's cardiologists (Dr. Thomason consulted Dr. Myrick 09/30 ) - Patient is status post ablation 3 -Troponin elevation peaked at 0.44 without CP/SOB likely secondary to RVR no further workup planned from that standpoint. Echo 02/19/13ejection fraction 35-40%. Hypokinesis inferolateral myocardium, lateral myocardium, posterior myocardium. Mild MR/TR. Pulmonary artery peak pressure 38. - Continue Lasix 40 mg by mouth daily . Holding potassium chloride 20 mEq twice a day GI: GERD Diverticulosis history of diverticulitis 1999 ADA diet. To be initiated 10/01 Continue PPI on Protonix 20 mg by mouth daily. On Prilosec 20 minutes by mouth daily at home Ingrid-Colace for bowel regimen FEN/RENAL: NARCISO overlying CKD stage III History of nephrolithiasis Creatinine currently 1.51. Accurate I's and O's Monitor urine output ID: Monitor for signs and symptoms of infection HEME: Chronic anemia normocytic anemia Chronic Xarelto use Monitor CBC No indications for transfusion of blood products at this time Continue heparin drip DERM: Partial thickness Sunburn bilateral feet/ankle/left peña Silvadene cream bid. ENDO: Diabetes mellitus Glipizide 5 mill grams by mouth daily will be held Home NPH level held as well Currently on sliding scale insulin/fentanyl with Accu-Cheks before meals/at bedtime to maintain euglycemia PROPH: Heparin drip as per above will also provide DVT prophylaxis. Protonix 20 mg daily for stress ulcer prophylaxis and history of GERD ACCESS: Peripheral IV. Central line if indicated Level 2 follow-up DVT GI prophylaxis - Teds SCDs early aggressive mobilization Xarelto - Omeprazole Critical Care: The total critical care time was 35 minutes. Time to perform other separately billable procedures was not included in the critical care time. Mike Muñoz MD Oct 02, 2016 12:57
[2016-10-02] MEDS ORDERED: METOPROLOL TARTRATE 5 MG/5 ML VIAL IV PUSH ONE (13:00)
--- NOTE | 2016-10-02 19:21 | HHI.PR ---
Review/Management Diagnosis possible occipital sz Plan continue current dose of keppra Diagnosis/Plan: Subjective Subjective Comments No acute events reported No recurrent visual field sx. Active Medications Current Medications Medications (Trade) Dose Ordered Sig/Jaz Route Start Time Stop Time Status Last Admin (Lipitor) 80 mg HS PO 09/29/16 21:00 10/01/16 20:02 (Cardizem Cd) 180 mg DAILY PO 09/29/16 09:00 10/02/16 09:46 (Lasix) 40 mg DAILY PO 09/29/16 09:00 10/02/16 09:47 (Toprol Xl) 200 mg DAILY PO 09/29/16 09:00 10/02/16 09:46 (Protonix) 20 mg DAILY PO 09/29/16 09:00 10/02/16 09:47 (NS Flush) 2 ml UNSCH PRN .XX 09/28/16 23:15 (NS Flush) 2 ml BID .XX 09/29/16 09:00 10/02/16 09:48 (Tylenol) 650 mg Q6H PRN PO 09/28/16 23:15 (Zofran Inj) 4 mg Q6H PRN IV 09/28/16 23:15 (Ambien) 5 mg HS PRN PO 09/28/16 23:15 Miscellaneous Information 1 Q361D XX 09/28/16 23:15 09/28/16 23:15 (Chlorhexidine 2% Cloth) 3 pack Taper DAILY@04 TOP 09/29/16 04:00 09/25/17 03:59 10/02/16 04:00 (Chlorhexidine 2% Cloth) 3 pack UNSCH PRN TOP 09/28/16 23:15 (Inrgid-Colace) 1 tab BID PO 09/29/16 09:00 10/02/16 09:46 (Milk Of Magnesia Liq) 30 ml Q12H PRN PO 09/28/16 23:15 (Senokot) 17.2 mg Q12H PRN PO 09/28/16 23:15 (Dulcolax Supp) 10 mg DAILY PRN RECTAL 09/28/16 23:15 Lactulose 30 ml 30 ml DAILY PRN PO 09/28/16 23:15 (Heparin-D5W Inj) 250 ml @ 0 mls/hr TITRATE IV 09/29/16 18:00 10/01/16 20:05 (Silvadene 1% Cream (400 Gm)) 1 applic Q12HR TOPICAL 09/29/16 21:00 10/02/16 09:48 (Keppra) 1,000 mg BID PO 09/30/16 21:00 10/02/16 09:47 (D50w (Vial) Inj) 50 ml UNSCH PRN IV 09/30/16 15:45 (Glucagon Inj) 1 mg UNSCH PRN OTHER 09/30/16 15:45 (Tikosyn) 500 mcg BID PO 10/01/16 21:00 10/02/16 09:46 (KCl) 10 meq Q12HR PO 10/01/16 21:00 10/02/16 09:47 Allergies Allergies Coded Allergies No Known Allergies (Verified03/21/16) Exam I&O / VS 10/01/16 10/01/16 10/02/16 15:00 23:00 07:00 Intake Total 830 ml 380 ml 188 ml Output Total 750 ml Balance 80 ml 380 ml 188 ml Intake Oral 380 ml 200 ml 100 ml IV Total 450 ml 180 ml 88 ml Output Urine Total 750 ml # Voids 2 2 # Bowel Movements 0 0 1 Vital Signs Date Time Temp Pulse Resp B/P Pulse Ox O2 Delivery O2 Flow Rate FiO2 10/02/16 18:00 109 10/02/16 16:00 108 10/02/16 16:00 97.8 108 35 131/81 93 10/02/16 14:00 104 10/02/16 12:00 104 10/02/16 12:00 98.2 104 19 135/76 93 10/02/16 10:00 114 10/02/16 08:00 98.2 114 32 137/69 93 10/02/16 08:00 114 10/02/16 06:00 107 10/02/16 04:00 98.3 114 22 151/81 92 10/02/16 04:00 114 10/02/16 02:00 119 10/02/16 00:00 118 10/02/16 00:00 98.6 118 22 129/79 91 10/01/16 22:00 117 10/01/16 20:00 119 10/01/16 20:00 98.8 119 24 119/83 93 Exam Comments alert. speech normal cn intact motor --no focal deficits Objective Micro and Labs Laboratory Tests Test 10/02/16 04:39 White Blood Count 15.7 Red Blood Count 4.41 Hemoglobin 11.7 Hematocrit 36.8 Mean Corpuscular Volume 83.4 Mean Corpuscular Hemoglobin 26.6 Mean Corpuscular Hemoglobin 31.9 Concent Red Cell Distribution Width 21.5 Platelet Count 183 Mean Platelet Volume 8.2 Activated Partial 60.7 Thromboplast Time Sodium Level 139 Potassium Level 3.8 Chloride Level 101 Carbon Dioxide Level 28.1 Anion Gap 10 Blood Urea Nitrogen 23 Creatinine 1.51 Estimat Glomerular Filtration 45 Rate Random Glucose 147 Calcium Level 9.0 Phosphorus Level 2.9 Magnesium Level 2.4 Diagnostic Tests EEG--slowing with no epileptiform discharges/ Triston Burnett PhD Oct 02, 2016 19:21
--- NOTE | 2016-10-02 19:39 | HHI.PR ---
Subjective Remarks Feeling better Objective Vital Signs Date Time Temp Pulse Resp B/P Pulse Ox O2 Delivery O2 Flow Rate FiO2 10/02/16 18:00 109 10/02/16 16:00 108 10/02/16 16:00 97.8 108 35 131/81 93 10/02/16 14:00 104 10/02/16 12:00 104 10/02/16 12:00 98.2 104 19 135/76 93 10/02/16 10:00 114 10/02/16 08:00 98.2 114 32 137/69 93 10/02/16 08:00 114 10/02/16 06:00 107 10/02/16 04:00 98.3 114 22 151/81 92 10/02/16 04:00 114 10/02/16 02:00 119 10/02/16 00:00 118 10/02/16 00:00 98.6 118 22 129/79 91 10/01/16 22:00 117 10/01/16 20:00 119 10/01/16 20:00 98.8 119 24 119/83 93 I/O 10/01/16 10/01/16 10/01/16 10/02/16 10/02/16 10/02/16 07:00 15:00 23:00 07:00 15:00 23:00 Intake Total 313 ml 830 ml 380 ml 188 ml 581 ml Output Total 800 ml 750 ml 800 ml Balance -487 ml 80 ml 380 ml 188 ml -219 ml Intake Oral 0 ml 380 ml 200 ml 100 ml 500 ml IV Total 313 ml 450 ml 180 ml 88 ml 81 ml Output Urine Total 800 ml 750 ml 800 ml # Voids 2 2 # Bowel Movements 0 0 0 1 1 Result Diagram: 10/02/169 10/02/16438 Imaging Alert, fully oriented, out of bed Lungs: ventilated Heart: S1, S2 regular, tachycardia Abdomen: soft, no mass Ext: no edema Current Medications Medications (Trade) Dose Ordered Sig/Jaz Route Start Time Stop Time Status Last Admin (Lipitor) 80 mg HS PO 09/29/16 21:00 10/01/16 20:02 (Cardizem Cd) 180 mg DAILY PO 09/29/16 09:00 10/02/16 09:46 (Lasix) 40 mg DAILY PO 09/29/16 09:00 10/02/16 09:47 (Toprol Xl) 200 mg DAILY PO 09/29/16 09:00 10/02/16 09:46 (Protonix) 20 mg DAILY PO 09/29/16 09:00 10/02/16 09:47 (NS Flush) 2 ml UNSCH PRN .XX 09/28/16 23:15 (NS Flush) 2 ml BID .XX 09/29/16 09:00 10/02/16 09:48 (Tylenol) 650 mg Q6H PRN PO 09/28/16 23:15 (Zofran Inj) 4 mg Q6H PRN IV 09/28/16 23:15 (Ambien) 5 mg HS PRN PO 09/28/16 23:15 Miscellaneous Information 1 Q361D XX 09/28/16 23:15 09/28/16 23:15 (Chlorhexidine 2% Cloth) 3 pack Taper DAILY@04 TOP 09/29/16 04:00 09/25/17 03:59 10/02/16 04:00 (Chlorhexidine 2% Cloth) 3 pack UNSCH PRN TOP 09/28/16 23:15 (Ingrid-Colace) 1 tab BID PO 09/29/16 09:00 10/02/16 09:46 (Milk Of Magnesia Liq) 30 ml Q12H PRN PO 09/28/16 23:15 (Senokot) 17.2 mg Q12H PRN PO 09/28/16 23:15 (Dulcolax Supp) 10 mg DAILY PRN RECTAL 09/28/16 23:15 Lactulose 30 ml 30 ml DAILY PRN PO 09/28/16 23:15 (Heparin-D5W Inj) 250 ml @ 0 mls/hr TITRATE IV 09/29/16 18:00 10/01/16 20:05 (Silvadene 1% Cream (400 Gm)) 1 applic Q12HR TOPICAL 09/29/16 21:00 10/02/16 09:48 (Keppra) 1,000 mg BID PO 09/30/16 21:00 10/02/16 09:47 (D50w (Vial) Inj) 50 ml UNSCH PRN IV 09/30/16 15:45 (Glucagon Inj) 1 mg UNSCH PRN OTHER 09/30/16 15:45 (Tikosyn) 500 mcg BID PO 10/01/16 21:00 10/02/16 09:46 (KCl) 10 meq Q12HR PO 10/01/16 21:00 10/02/16 09:47 Assessment and Plan Problem List: (1) Atrial fibrillation with rapid ventricular response Status: Chronic Plan: In atrial tachycardia with FVR. On tikosyn HR regular Doing better. If not back in sinus rhythm in AM then cardioversion will be considered. Case discussed with patient (2) HTN (hypertension) Status: Chronic Plan: SBP 131 Leonel Myrick MD Oct 02, 2016 19:39
[2016-10-02] MEDS: HEPARIN-D5W INJ 250 ML IV SCH (21:55)
[2016-10-02] MEDS: ATORVASTATIN 80 MG TAB PO SCH (21:55)
[2016-10-03] VITALS (20 sets, daily range): BP systolic 120–164; BP diastolic 56–92; PULSE 18–114; RESP 16–36; TEMP 97.8–98.4; O2SAT 85–100
--- NOTE | 2016-10-03 05:09 | RADRPT ---
EXAM DATE/TIME: 10/03/2016 03:45 [facility] COMPARISON: CHEST SINGLE AP, October 01, 2016, 5:10. INDICATIONS : Short of breath. MEDICAL HISTORY : Hypercholesterolemia. Diabetes mellitus type II. Cardiovascular disease. SURGICAL HISTORY : Pacemaker. ENCOUNTER: Subsequent ACUITY: 1 week PAIN SCORE: Non-responsive. LOCATION: Bilateral chest FINDINGS: There continues to be bibasilar pulmonary infiltrates. The bibasilar infiltrates are stable compared to the prior study. No evidence of pneumothorax. Heart size is enlarged but stable. No significant ch anges. CONCLUSION: No significant interval changes. Jagdish Burton MD on October 03, 2016 at 5:07 Board Certified Radiologist. This report was verified electronically.
[2016-10-03 06:07] LABS: HEMATOCRIT 35.5 % (39.0-51.0); MEAN CELL VOLUME 82.6 FL (80.0-100.0); MEAN CORPUSCULAR HGB CONC 32.7 % (32.0-36.0); PLATELET COUNT 143 TH/MM3 (150-450); RED CELL DISTRIBUTION WIDTH 21.9 % (11.6-17.2); REVIEW FLAG FINAL; WHITE BLOOD COUNT 7.8 TH/MM3 (4.0-11.0)
[2016-10-03 06:28] LABS: MAGNESIUM 2.4 MG/DL (1.5-2.5); POTASSIUM 3.9 MEQ/L (3.5-5.1)
[2016-10-03] MEDS: INSULIN NovoLIN REGULAR SUPPLEMENTAL SCALE SQ SCH ×4 (07:00→21:00)
[2016-10-03] MEDS: SILVER SULFADIAZINE 1% CR 400 GM JAR TOPICAL SCH ×2 (09:00→21:23)
[2016-10-03] MEDS: SODIUM CHLORIDE 0.9% FLUSH 10 ML FLUSH SCH ×2 (09:00→21:24)
[2016-10-03] MEDS: PANTOPRAZOLE SOD 20 MG DELAYED RELEASE TAB PO SCH (09:50)
[2016-10-03] MEDS: POTASSIUM CHLORIDE 10 MEQ CONTROLLED RELEASE TAB PO SCH ×2 (09:50→21:23)
[2016-10-03] MEDS: DOCUSATE SODIUM 50 MG/SENNA 8.6 MG TAB PO SCH ×2 (09:50→21:23)
[2016-10-03] MEDS: METOPROLOL SUCCINATE 50 MG EXTENDED RELEASE TAB PO SCH (09:50)
[2016-10-03] MEDS: FUROSEMIDE 40 MG TAB PO SCH (09:50)
[2016-10-03] MEDS: levETIRAcetam 500 MG TAB PO SCH ×2 (09:50→21:23)
[2016-10-03] MEDS: DILTIAZEM-CD 180 MG CAP ER PO SCH (09:50)
[2016-10-03] MEDS: DOFETILIDE 250 MCG CAP PO SCH ×2 (09:51→21:23)
[2016-10-03] MEDS ORDERED: MAGNESIUM SULFATE 1 GM PREMIX 100 ML ONE (10:42)
--- NOTE | 2016-10-03 10:53 | HHI.PR ---
Subjective Remarks Doing ok Objective Vital Signs Date Time Temp Pulse Resp B/P Pulse Ox O2 Delivery O2 Flow Rate FiO2 10/03/16 07:49 100 Nasal Cannula 2.00 10/03/16 06:00 18 10/03/16 04:00 97.9 106 17 150/81 92 10/03/16 04:00 106 10/03/16 02:00 109 10/03/16 00:00 98.3 107 27 157/82 85 10/03/16 00:00 107 10/02/16 22:00 111 10/02/16 20:00 109 10/02/16 20:00 98.0 109 30 142/72 91 10/02/16 18:00 109 10/02/16 16:00 108 10/02/16 16:00 97.8 108 35 131/81 93 10/02/16 14:00 104 10/02/16 12:00 104 10/02/16 12:00 98.2 104 19 135/76 93 I/O 10/02/16 10/02/16 10/02/16 10/03/16 10/03/16 10/03/16 07:00 15:00 23:00 07:00 15:00 23:00 Intake Total 188 ml 581 ml 313 ml 88 ml Output Total 800 ml 400 ml Balance 188 ml -219 ml -87 ml 88 ml Intake Oral 100 ml 500 ml 240 ml IV Total 88 ml 81 ml 73 ml 88 ml Output Urine Total 800 ml 400 ml # Voids 2 # Bowel Movements 1 1 1 Result Diagram: 10/03/16 0457 10/03/16 0457 Imaging Alert, fully oriented Lungs: ventilated Heart: S1, S2 regular, no gallop Abdomen: soft, no mass Ext: No edema Assessment and Plan Problem List: (1) Atrial fibrillation with rapid ventricular response Status: Chronic Plan: In sinus rhythm. SP cardioversion QT 490 ms Will continue on current management Can be transferred to a stepdown unit. If stable, can be DH tomorrow (2) HTN (hypertension) Status: Chronic Plan: SBP 144 Leonel Myrick MD Oct 03, 2016 10:53
--- NOTE | 2016-10-03 11:22 | MA ---
cc: SHARITA FREY M.D. DATE 10/03/2016 PROCEDURE PERFORMED Cardioversion INDICATIONS Mr. Bolton is a 76-year-old gentleman with atrial tachycardia, previous atrial fibrillation, ablation on Tikosyn who will undergo cardioversion. The risks, the nature and the benefit of the procedure are clearly stated to him. The risks include cardiac arrest, need for open heart surgery, need for pacing support and even . He understood and agreed to proceed. PROCEDURE After written informed consent was obtained, anterolateral pads were replaced. A 200 sync biphasic joule was delivered that converted the patient into sinus rhythm. No incident report. The patient tolerated the procedure. CONCLUSION Successful cardioversion COMMENT AND RECOMMENDATIONS The patient is going to be observed. EKG ordered. I will follow him during hospitalization. MD ZA Cabraels/[facility] /10:53 AM /11:19 AM
--- NOTE | 2016-10-03 15:02 | EKG ---
Date Performed: 10/02/2016 Time Performed: 19:21:41 PTAGE: 76 years EKG: SINUS TACHYCARDIA RIGHT BUNDLE BRANCH BLOCK LEFT ANTERIOR FASCICULAR BLOCK MARKED ST DEPRES YANETH, CONSIDER SUBENDOCARDIAL INJURY ABNORMAL ECG Compared to prior tracing no significant change PREVIOUS TRACING : 10/02/2016 07.22 DOCTOR: Barbra Echavarria Interpretating Date/Time 10/03/2016 14:57:48
--- NOTE | 2016-10-03 15:42 | HHI.CCPN ---
Subjective Remarks/Hospital Course 76-year-old male with history of hypertension, dyslipidemia, and diabetes, coronary artery disease, A. fib and CHF presents today here with shortness of breath. Patient has had approximately one week of dyspnea mostly exertional and when laying flat. Patient states he has not been able lay flat and instead lays on his side to sleep. He denies any cough or chest congestion. No chest pain. No increase in peripheral edema. He has had recent ablation by Dr. 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 Echavarria. A fib RVR persists in 130s on Cardizem drip 15 mg/hr, metoprolol 200 XL daily, digoxin load per cardiology. Denies CP/SOB. On RA 09/30: Afebrile. Heart rate currently in the 1teens. Some visual changes as answered digoxin discontinued. Digoxin level pending. Neurology consulted and recommended CT of the brain. Increase Keppra to thousand grams twice a day and ordered EEG. Remains on amiodarone and Cardizem drips 10/01: Afebrile. Amiodarone drip discontinued yesterday. Plan to initiate Tikosyn per EPS. Heart rate currently at 119. Hemodynamically stable. Vision is improved. 10/02: Afebrile. Off amiodarone and Cardizem drips currently. Currently in sinus tachycardia. Hemodynamically stable. Possible epileptiform activity in EEG. Neurology following. Daughter concerned regarding ICU delirium. Subjective: 10/03: Afebrile. Status post cardioversion today currently normal sinus rhythm. Okay to CIC. Denies chest pain or short of breath. Objective Vital Signs Date Time Temp Pulse Resp B/P Pulse Ox O2 Delivery O2 Flow Rate FiO2 10/03/16 14:00 65 10/03/16 12:00 16 138/77 100 10/03/16 08:00 98.4 10/03/16 07:49 Nasal Cannula 2.00 Intake and Output 10/02/16 10/02/16 10/02/16 07:59 15:59 23:59 Intake Total 188 ml 581 ml 313 ml Output Total 800 ml 400 ml Balance 188 ml -219 ml -87 ml Result Diagram: 10/03/16 7495 10/03/16 045 Imaging Last Impressions Chest X-Ray 10/01/16 0600 Signed Impressions: Service Date/Time: Saturday, October 01, 2016 05:10 - CONCLUSION: There continues to be bibasilar infiltrates without significant change. Jagdish Burton MD Head CT 09/30/16 0000 Signed Impressions: Service Date/Time: Friday, September 30, 2016 17:22 - CONCLUSION: Area of encephalomalacia in the posterior right temporal lobe and right frontal lobe consistent with old strokes. No evidence of acute hemorrhage or edema. Franco Shore MD Objective Remarks GENERAL: Patient is a 76-year-old male, resting in bed in no acute distress SKIN: Warm and dry. Well perfused and no rash HEAD: Normocephalic. EYES: Right pupil irregular, ~4 mm and nonreactive secondary to known cataract/ detached retina. Left pupil 2 mm and reactive. No scleral icterus. No injection or drainage. NECK: Supple, trachea midline. No JVD or lymphadenopathy. No carotid bruits CARDIOVASCULAR: Tachycardia, RR. S1, S2 no S4. Without murmur RESPIRATORY: Few coarse crackles appreciated left lower lobe. No wheezing. Excursion GASTROINTESTINAL: Abdomen soft, non-tender, nondistended. Active bowel sounds are present MUSCULOSKELETAL: 1+ to 2+ pedal edema. Peeling skin on anterior aspect of ankles and proximal dorsum of foot bilaterally covered in Silvadene. Evolving blistering on distal tib/fib demarcated NEURO: Awake and alert, hard of hearing,. Strength is equal symmetric. Gait is normal. Moving all extremities spontaneously without focal deficit. A/P Assessment and Plan NEURO/PSYCH: Seizure disorder Visual changes - medication versus seizure versus CVA History of right cataract/detached retina History of CVA Neurology consulted/Dr. Burnett Recommended CT brain rule out thrombus. 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 EEG 09/30 revealed possible right-sided temporal background acute RESP: Nasal cannula if needed to maintain saturations greater than equal to 92% Incentive spirometry while awake Currently on room air Chest x-ray revealed possible left lower lobe infiltrate/effusion CV: Atrial fibrillation with rapid ventricular response Chronic systolic heart failure History of AICD/[facility] Coronary artery diseasepost stent 3 Dyslipidemia Hypertension - Continue metoprolol XL 200 daily -On cardizem 180 mg by mouth daily. Cardizem drip current discontinued Amiodarone drip discontinued 09/30 09/29, digoxin load was added by cardiology. Follow-up digoxin level to be done in AM was 1.1. Was discontinued on 09/30 secondary to vision changes Holding clonidine 0.2 mg by mouth twice a day for hypertension Continue atorvastatin 80 mg by mouth daily for dyslipidemia Plan for dofetilide 500 mcg by mouth twice a day per Dr. Myrick. EPS study for ablation pacemaker if medical management fails. Status post cardioversion 10/03. Was on Xarelto as outpatient. Was started on heparin drip for anticoagulation for ICU patient. Will continue - Further per patient's cardiologists (Dr. Thomason consulted Dr. Myrick 09/30 ) - Patient is status post ablation 3 -Troponin elevation peaked at 0.44 without CP/SOB likely secondary to RVR no further workup planned from that standpoint. Echo 02/19/13ejection fraction 35-40%. Hypokinesis inferolateral myocardium, lateral myocardium, posterior myocardium. Mild MR/TR. Pulmonary artery peak pressure 38. - Continue Lasix 40 mg by mouth daily . Holding potassium chloride 20 mEq twice a day GI: GERD Diverticulosis history of diverticulitis 1999 ADA diet. To be initiated 10/01 Continue PPI on Protonix 20 mg by mouth daily. On Prilosec 20 minutes by mouth daily at home Ingrid-Colace for bowel regimen FEN/RENAL: NARCISO overlying CKD stage III History of nephrolithiasis Creatinine currently 1.51. Accurate I's and O's Monitor urine output ID: Monitor for signs and symptoms of infection HEME: Chronic anemia normocytic anemia Chronic RIVAROXABAN use Thrombocytopenia Monitor CBC No indications for transfusion of blood products at this time Continue heparin drip. Likely transition back to RIVAROXABAN in a.m. DERM: Partial thickness Sunburn bilateral feet/ankle/left peña Silvadene cream bid. ENDO: Diabetes mellitus Glipizide 5 mill grams by mouth daily will be held Home NPH level held as well Currently on sliding scale insulin/fentanyl with Accu-Cheks before meals/at bedtime to maintain euglycemia PROPH: Heparin drip as per above will also provide DVT prophylaxis. Protonix 20 mg daily for stress ulcer prophylaxis and history of GERD ACCESS: Peripheral IV. Central line if indicated Level 2 follow-up Okay to transfer to [facility] per Dr. Myrick. Consult hospitalist. DVT GI prophylaxis - Teds SCDs early aggressive mobilization Xarelto - Omeprazole Critical Care: The total critical care time was 35 minutes. Time to perform other separately billable procedures was not included in the critical care time. Mike Muñoz MD Oct 03, 2016 15:42
[2016-10-03] MEDS: HEPARIN-D5W INJ 250 ML IV SCH (17:03)
[2016-10-03] MEDS: ATORVASTATIN 80 MG TAB PO SCH (21:22)
[2016-10-03] MEDS: CHLORHEXIDINE GLUCONATE 2 % 1 PACK (2 CLOTHS) TOP SCH (21:24)
[2016-10-04] VITALS (17 sets, daily range): BP systolic 140–168; BP diastolic 70–76; PULSE 60–68; RESP 17–22; TEMP 97.2–98.9; O2SAT 87–95
[2016-10-04 05:39] LABS: HEMATOCRIT 37.1 % (39.0-51.0); MEAN CELL VOLUME 83.8 FL (80.0-100.0); MEAN CORPUSCULAR HGB CONC 32.2 % (32.0-36.0); PLATELET COUNT 146 TH/MM3 (150-450); RED BLOOD COUNT 4.43 MIL/MM3 (4.50-5.90); RED CELL DISTRIBUTION WIDTH 21.2 % (11.6-17.2); REVIEW FLAG FINAL
[2016-10-04 05:43] LABS: APTT (PATIENT) 56.9 SEC (24.3-30.1)
--- NOTE | 2016-10-04 07:08 | HHI.PR ---
Subjective Remarks Patient seen and examined this am. He feels well this morning. He is ambulatory to chair without difficulty. Denies CP, SOB, or palpitations. Wants to have a room with a bathroom. States xarelto is expensive, states a long time ago he was on coumadin, doesn't know why. Objective Vital Signs Date Time Temp Pulse Resp B/P Pulse Ox O2 Delivery O2 Flow Rate FiO2 10/04/16 04:00 61 10/04/16 04:00 98.9 61 17 159/74 87 10/04/16 02:00 60 10/04/16 00:00 98.6 62 22 140/70 93 10/04/16 00:00 62 10/03/16 23:50 62 10/03/16 22:00 67 10/03/16 20:00 71 10/03/16 20:00 98.2 71 36 123/82 95 10/03/16 18:00 69 26 132/61 95 10/03/16 18:00 69 10/03/16 17:00 63 21 121/68 93 10/03/16 16:00 97.8 65 21 133/66 95 10/03/16 16:00 65 10/03/16 15:00 62 17 120/56 90 10/03/16 14:00 65 34 91 10/03/16 14:00 65 10/03/16 13:00 62 24 86 10/03/16 12:00 62 10/03/16 12:00 67 16 138/77 100 10/03/16 11:00 65 16 130/67 99 10/03/16 10:00 66 10/03/16 10:00 114 19 149/92 96 10/03/16 09:00 111 22 151/92 91 10/03/16 08:00 98.4 110 34 164/79 90 10/03/16 08:00 112 10/03/16 07:49 100 Nasal Cannula 2.00 10/03/16 07:00 109 22 150/91 99 I/O 10/03/16 10/03/16 10/03/16 10/04/16 10/04/16 10/04/16 06:59 14:59 22:59 06:59 14:59 22:59 Intake Total 88 ml 453 ml 324 ml 583 ml Output Total 550 ml 750 ml Balance 88 ml 453 ml -226 ml -167 ml Intake Oral 360 ml 240 ml 500 ml IV Total 88 ml 93 ml 84 ml 83 ml Output Urine Total 550 ml 750 ml # Bowel Movements 1 Result Diagram: 10/04/16 0446 10/04/16 0446 Imaging Last Impressions Chest X-Ray 10/03/16 0600 Signed Impressions: Service Date/Time: September 03:45 - CONCLUSION: No significant interval changes. Jagdish Burton MD Head CT 09/30/16 0000 Signed Impressions: Service Date/Time: Friday, September 30, 2016 17:22 - CONCLUSION: Area of encephalomalacia in the posterior right temporal lobe and right frontal lobe consistent with old strokes. No evidence of acute hemorrhage or edema. Franco Shore MD Objective Remarks GENERAL: Patient is a 76-year-old male, resting in bed in no acute distress SKIN: Warm and dry. Well perfused and no rash HEAD: Normocephalic. EYES: Right pupil irregular, ~4 mm and nonreactive secondary to known cataract/ detached retina. Left pupil 2 mm and reactive. No scleral icterus. No injection or drainage. NECK: Supple, trachea midline. No JVD or lymphadenopathy. No carotid bruits CARDIOVASCULAR: Regular rate and rythm, appears to be in sinus, systolic murmur appreciated RESPIRATORY: Few coarse crackles appreciated left lower lobe. No wheezing. Excursion GASTROINTESTINAL: Abdomen soft, non-tender, nondistended. Active bowel sounds are present MUSCULOSKELETAL: 1+ to 2+ pedal edema. Peeling skin on anterior aspect of ankles and proximal dorsum of foot bilaterally covered in Silvadene. Evolving blistering on distal tib/fib demarcated NEURO: Awake and alert, hard of hearing,. Strength is equal symmetric. Gait is normal. Moving all extremities spontaneously without focal deficit. A/P Problem List: (1) DM2 (diabetes mellitus, type 2) ICD Code: E11.9 (2) DVT prophylaxis ICD Code: Z79.01 (3) NARCISO (acute kidney injury) ICD Code: N17.9 (4) Atrial fibrillation with rapid ventricular response ICD Code: I48.91 (5) HTN (hypertension) ICD Code: I10 (6) CAD (coronary artery disease) ICD Code: I25.10 (7) Hyperlipidemia ICD Code: E78.5 (8) GERD (gastroesophageal reflux disease) ICD Code: K21.9 (9) S/P ablation of atrial fibrillation ICD Code: Z98.890 Assessment and Plan 68 yo male with pmhx of HTN, dyslipidemia, DM, CAD, A-Fib, and CHF with the following problems: A-Fib with RVR - hx: s/p amiodarone and cardizem drip, digoxin d/c due to visual changes, s/p cardioversion 10/03, s/p ablation x 3 - 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 Mild MR/TR. - Lasix 40 mg daily, KCL 10 meq BID - encourage patient to elevate legs Acute on chronic kidney disease, stage 3 - monitor - Cr - strict I & O's Chronic anemia - thought to be due to chronic rivaroxaban use Sunburn - parthial thickness, bilateral feet and ankles - silvadene cream BID DM - home glipizide 5 mg daily and NPI on hold - continue sliding scale Seizure disorder - continue keppra 1,000 mg BID - EEG--slowing with no epileptiform discharges/ - followed by Dr. Burnett HLD - cont lipitor 80 mg HS prophy - on prilosec at home for GERD - currently on Heparin drip--> will transition back to xarelto today Pt to re-eval for discharge needs. Discharge Planning Per Elen may d/c out of the unit to step down if continues to be medically stable, may d/c tomorrow i discussed this case and plan with the nurse Carmen Ayala MD Oct 04, 2016 07:08
[2016-10-04] MEDS: INSULIN NovoLIN REGULAR SUPPLEMENTAL SCALE SQ SCH ×4 (07:20→21:00)
[2016-10-04] MEDS: SODIUM CHLORIDE 0.9% FLUSH 10 ML FLUSH SCH ×2 (09:00→21:43)
[2016-10-04] MEDS: SILVER SULFADIAZINE 1% CR 400 GM JAR TOPICAL SCH ×2 (09:00→21:00)
[2016-10-04] MEDS: DILTIAZEM-CD 180 MG CAP ER PO SCH (09:38)
[2016-10-04] MEDS: FUROSEMIDE 40 MG TAB PO SCH (09:38)
[2016-10-04] MEDS: POTASSIUM CHLORIDE 10 MEQ CONTROLLED RELEASE TAB PO SCH ×2 (09:39→21:43)
[2016-10-04] MEDS: RIVAROXABAN 20 MG TAB PO SCH (09:39)
[2016-10-04] MEDS: levETIRAcetam 500 MG TAB PO SCH ×2 (09:39→21:42)
[2016-10-04] MEDS: METOPROLOL SUCCINATE 50 MG EXTENDED RELEASE TAB PO SCH (09:39)
[2016-10-04] MEDS: DOCUSATE SODIUM 50 MG/SENNA 8.6 MG TAB PO SCH ×2 (09:39→21:00)
[2016-10-04] MEDS: PANTOPRAZOLE SOD 20 MG DELAYED RELEASE TAB PO SCH (09:39)
[2016-10-04] MEDS: DOFETILIDE 250 MCG CAP PO SCH ×2 (09:39→21:42)
--- NOTE | 2016-10-04 15:01 | EKG ---
Date Performed: 10/03/2016 Time Performed: 10:48:30 PTAGE: 76 years EKG: Sinus rhythm Left axis deviation RBBB with left anterior fascicular block Inferior infarct - age undetermined Lat eral ST-T changes may be due to myocardial ischemia Abnormal ECG PREVIOUS TRACING : 10/02/2016 19.21 DOCTOR: Percy Rick Interpretating Date/Time 10/04/2016 15:00:09
--- NOTE | 2016-10-04 15:07 | HHI.PR ---
Subjective Remarks Feeling better Objective Vital Signs Date Time Temp Pulse Resp B/P Pulse Ox O2 Delivery O2 Flow Rate FiO2 10/04/16 14:00 60 10/04/16 12:00 60 10/04/16 12:00 97.7 60 19 151/70 93 10/04/16 11:38 92 10/04/16 10:00 60 10/04/16 08:00 97.8 61 18 168/76 94 10/04/16 08:00 60 10/04/16 06:00 60 10/04/16 04:00 61 10/04/16 04:00 98.9 61 17 159/74 87 10/04/16 02:00 60 10/04/16 00:00 98.6 62 22 140/70 93 10/04/16 00:00 62 10/03/16 23:50 62 10/03/16 22:00 67 10/03/16 20:00 71 10/03/16 20:00 98.2 71 36 123/82 95 10/03/16 18:00 69 26 132/61 95 10/03/16 18:00 69 10/03/16 17:00 63 21 121/68 93 10/03/16 16:00 97.8 65 21 133/66 95 10/03/16 16:00 65 I/O 10/03/16 10/03/16 10/03/16 10/04/16 10/04/16 10/04/16 07:00 15:00 23:00 07:00 15:00 23:00 Intake Total 88 ml 453 ml 324 ml 583 ml 511 ml Output Total 550 ml 750 ml Balance 88 ml 453 ml -226 ml -167 ml 511 ml Intake Oral 360 ml 240 ml 500 ml 480 ml IV Total 88 ml 93 ml 84 ml 83 ml 31 ml Output Urine Total 550 ml 750 ml # Voids 2 # Bowel Movements 1 1 Result Diagram: 10/04/166 10/04/166 Imaging Alert, fully oriented Heart: S1, s2 regular, no gallop Lungs: ventilated Abdomen: soft, no mass ext: no edema Current Medications Medications (Trade) Dose Ordered Sig/Jaz Route Start Time Stop Time Status Last Admin (Lipitor) 80 mg HS PO 09/29/16 21:00 10/03/16 21:22 (Cardizem Cd) 180 mg DAILY PO 09/29/16 09:00 10/04/16 09:38 (Lasix) 40 mg DAILY PO 09/29/16 09:00 10/04/16 09:38 (Toprol Xl) 200 mg DAILY PO 09/29/16 09:00 10/04/16 09:39 (Protonix) 20 mg DAILY PO 09/29/16 09:00 10/04/16 09:39 (NS Flush) 2 ml UNSCH PRN .XX 09/28/16 23:15 (NS Flush) 2 ml BID .XX 09/29/16 09:00 10/03/16 21:24 (Tylenol) 650 mg Q6H PRN PO 09/28/16 23:15 (Zofran Inj) 4 mg Q6H PRN IV 09/28/16 23:15 (Ambien) 5 mg HS PRN PO 09/28/16 23:15 Miscellaneous Information 1 Q361D XX 09/28/16 23:15 09/28/16 23:15 (Chlorhexidine 2% Cloth) Taper DAILY@04 TOP 09/29/16 04:00 09/25/17 03:59 10/03/16 21:24 (Chlorhexidine 2% Cloth) 3 pack UNSCH PRN TOP 09/28/16 23:15 (Ingrid-Colace) 1 tab BID PO 09/29/16 09:00 10/04/16 09:39 (Milk Of Magnesia Liq) 30 ml Q12H PRN PO 09/28/16 23:15 (Senokot) 17.2 mg Q12H PRN PO 09/28/16 23:15 (Dulcolax Supp) 10 mg DAILY PRN RECTAL 09/28/16 23:15 (Lactulose Liq) 30 ml DAILY PRN PO 09/28/16 23:15 (Silvadene 1% Cream (400 Gm)) 1 applic Q12HR TOPICAL 09/29/16 21:00 10/04/16 09:00 (Keppra) 1,000 mg BID PO 09/30/16 21:00 10/04/16 09:39 (D50w (Vial) Inj) 50 ml UNSCH PRN IV 09/30/16 15:45 (Glucagon Inj) 1 mg UNSCH PRN OTHER 09/30/16 15:45 (Tikosyn) 500 mcg BID PO 10/01/16 21:00 10/04/16 09:39 (KCl) 10 meq Q12HR PO 10/01/16 21:00 10/04/16 09:39 (Xarelto) 20 mg DAILY PO 10/04/16 09:00 10/04/16 09:39 Last Impressions Chest X-Ray 10/03/16 0600 Signed Impressions: Service Date/Time: September 03:45 - CONCLUSION: No significant interval changes. Jagdish Burton MD Head CT 09/30/16 0000 Signed Impressions: Service Date/Time: Friday, September 30, 2016 17:22 - CONCLUSION: Area of encephalomalacia in the posterior right temporal lobe and right frontal lobe consistent with old strokes. No evidence of acute hemorrhage or edema. Franco Shore MD Assessment and Plan Problem List: (1) Atrial fibrillation with rapid ventricular response Status: Chronic Plan: In sinus rhythm. Doing better Can be DH in AM Follow up in 3 weeks (2) HTN (hypertension) Status: Chronic Plan: SBP 151 Leonel Myrick MD Oct 04, 2016 15:07
[2016-10-04] MEDS: ATORVASTATIN 80 MG TAB PO SCH (21:42)
[2016-10-05] VITALS (11 sets, daily range): BP systolic 125–150; BP diastolic 65–76; PULSE 60–76; RESP 14–18; TEMP 97–97.5; O2SAT 94–96
[2016-10-05] MEDS: CHLORHEXIDINE GLUCONATE 2 % 1 PACK (2 CLOTHS) TOP SCH (03:52)
[2016-10-05] MEDS: INSULIN NovoLIN REGULAR SUPPLEMENTAL SCALE SQ SCH ×2 (06:13→11:00)
[2016-10-05] MEDS: DOCUSATE SODIUM 50 MG/SENNA 8.6 MG TAB PO SCH (08:52)
[2016-10-05] MEDS: SILVER SULFADIAZINE 1% CR 400 GM JAR TOPICAL SCH (08:53)
[2016-10-05] MEDS: levETIRAcetam 500 MG TAB PO SCH (08:59)
[2016-10-05] MEDS: METOPROLOL SUCCINATE 50 MG EXTENDED RELEASE TAB PO SCH (08:59)
[2016-10-05] MEDS: DILTIAZEM-CD 180 MG CAP ER PO SCH (08:59)
[2016-10-05] MEDS: FUROSEMIDE 40 MG TAB PO SCH (09:00)
[2016-10-05] MEDS: DOFETILIDE 250 MCG CAP PO SCH (09:00)
[2016-10-05] MEDS: POTASSIUM CHLORIDE 10 MEQ CONTROLLED RELEASE TAB PO SCH (09:00)
[2016-10-05] MEDS: PANTOPRAZOLE SOD 20 MG DELAYED RELEASE TAB PO SCH (09:01)
[2016-10-05] MEDS: RIVAROXABAN 20 MG TAB PO SCH (09:01)
[2016-10-05] MEDS: SODIUM CHLORIDE 0.9% FLUSH 10 ML FLUSH SCH (09:01)
--- NOTE | 2016-10-05 09:34 | HHI.PR ---
Subjective Remarks Patient seen and examined this am. He feels well this morning. Feels well. Denies CP or SOB. Ambulatory without issues. He is ready to go home. Objective Vital Signs Date Time Temp Pulse Resp B/P Pulse Ox O2 Delivery O2 Flow Rate FiO2 10/05/16 08:15 60 10/05/16 07:51 64 10/05/16 05:58 97.5 63 14 148/76 94 10/05/16 03:30 60 10/05/16 03:00 60 10/05/16 02:00 60 10/05/16 01:45 60 16 125/65 96 10/05/16 01:00 60 10/05/16 00:00 76 10/04/16 23:00 64 10/04/16 22:00 66 10/04/16 21:30 97.9 66 18 141/71 95 10/04/16 21:00 66 10/04/16 20:00 61 10/04/16 19:00 60 10/04/16 18:18 62 10/04/16 16:08 68 10/04/16 16:08 97.2 60 18 148/74 94 10/04/16 14:00 60 10/04/16 12:00 60 10/04/16 12:00 97.7 60 19 151/70 93 10/04/16 11:38 92 10/04/16 10:00 60 I/O 10/04/16 10/04/16 10/04/16 10/05/16 10/05/16 10/05/16 07:00 15:00 23:00 07:00 15:00 23:00 Intake Total 583 ml 511 ml 480 ml Output Total 750 ml 1325 ml Balance -167 ml 511 ml -845 ml Intake Oral 500 ml 480 ml 480 ml IV Total 83 ml 31 ml 0 ml Output Urine Total 750 ml 1325 ml # Voids 2 # Bowel Movements 1 1 Result Diagram: 10/04/16 0446 10/04/16 0446 Imaging Last Impressions Chest X-Ray 10/03/16 0600 Signed Impressions: Service Date/Time: September 03:45 - CONCLUSION: No significant interval changes. Jgadish Burton MD Head CT 09/30/16 0000 Signed Impressions: Service Date/Time: Friday, September 30, 2016 17:22 - CONCLUSION: Area of encephalomalacia in the posterior right temporal lobe and right frontal lobe consistent with old strokes. No evidence of acute hemorrhage or edema. Franco Shore MD Objective Remarks GENERAL: Patient is a 76-year-old male, sitting up in chair SKIN: Warm and dry. Well perfused and no rash HEAD: Normocephalic. EYES: Right pupil irregular, ~4 mm and nonreactive secondary to known cataract/ detached retina. Left pupil 2 mm and reactive. No scleral icterus. No injection or drainage. NECK: Supple, trachea midline. No JVD or lymphadenopathy. No carotid bruits CARDIOVASCULAR: Regular rate and rhythm, appears to be in sinus, systolic murmur appreciated RESPIRATORY: Few coarse crackles appreciated left lower lobe. No wheezing. Excursion GASTROINTESTINAL: Abdomen soft, non-tender, nondistended. Active bowel sounds are present MUSCULOSKELETAL: 1+ pedal edema. Peeling skin on anterior aspect of ankles and proximal dorsum of foot bilaterally covered in Silvadene. Evolving blistering on distal tib/fib demarcated NEURO: Awake and alert, hard of hearing,. Strength is equal symmetric. Gait is normal. Moving all extremities spontaneously without focal deficit. A/P Problem List: (1) DM2 (diabetes mellitus, type 2) ICD Code: E11.9 (2) DVT prophylaxis ICD Code: Z79.01 (3) NARCISO (acute kidney injury) ICD Code: N17.9 (4) Atrial fibrillation with rapid ventricular response ICD Code: I48.91 (5) HTN (hypertension) ICD Code: I10 (6) CAD (coronary artery disease) ICD Code: I25.10 (7) Hyperlipidemia ICD Code: E78.5 (8) GERD (gastroesophageal reflux disease) ICD Code: K21.9 (9) S/P ablation of atrial fibrillation ICD Code: Z98.890 Assessment and Plan 68 yo male with pmhx of HTN, dyslipidemia, DM, CAD, A-Fib, and CHF with the following problems: A-Fib with RVR - hx: s/p amiodarone and cardizem drip, digoxin d/c due to visual changes, s/p cardioversion 10/03, s/p ablation x 3 - 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 Mild MR/TR. - Lasix 40 mg daily, KCL 10 meq BID - encourage patient to elevate legs Acute on chronic kidney disease, stage 3 - monitor - Cr - strict I & O's Chronic anemia - thought to be due to chronic rivaroxaban use Sunburn - parthial thickness, bilateral feet and ankles - silvadene cream BID DM - home glipizide 5 mg daily and NPI on hold - continue sliding scale Seizure disorder - continue keppra 1,000 mg BID - EEG--slowing with no epileptiform discharges/ - followed by Dr. Lex SCANLON - cont lipitor 80 mg HS prophy - on prilosec at home for GERD - currently on Heparin drip--> will transition back to xarelto today Discharge Planning D/C home today with cards and PCP follow up. Carmen Ayala MD Oct 05, 2016 09:34
[2016-10-05] MEDS ORDERED: DOFE250 PO (09:38)
--- NOTE | 2016-10-05 09:38 | HHI.DCPOC ---
Discharge Care Plan Diagnosis: (1) Atrial fibrillation with rapid ventricular response (2) S/P ablation of atrial fibrillation Goals to Promote Your Health * To prevent worsening of your condition and complications * To maintain your health at the optimal level Directions to Meet Your Goals Take your medications as prescribed Follow your dietary instruction Follow activity as directed Keep your appointments as scheduled Take your immunizations and boosters as scheduled If your symptoms worsen call your PCP, if no PCP go to Urgent Care Center or Emergency Room Smoking is Dangerous to Your Health. Avoid second hand smoke Call the 24-hour hour crisis hotline for domestic abuse at Carmen Ayala MD Oct 05, 2016 09:38
[2016-10-05 10:00] LABS: AUTOMATED NEUTROPHIL # 5.6 TH/MM3 (1.8-7.7); BASOPHIL % 0.6 % (0.0-2.0); EOSINOPHIL # 0.1 TH/MM3 (0-0.4); EOSINOPHIL % 1.1 % (0.0-4.0); HEMATOCRIT 36.1 % (39.0-51.0); HEMO FLAGS DIFF FINAL; LYMPH % 11.1 % (9.0-44.0); LYMPHOCYTE # 0.8 TH/MM3 (1.0-4.8); MEAN CELL VOLUME 84.7 FL (80.0-100.0); MEAN CORPUSCULAR HEMOGLOBIN 26.7 PG (27.0-34.0); MEAN CORPUSCULAR HGB CONC 31.5 % (32.0-36.0); MONO % 9.2 % (0.0-8.0); PLATELET COUNT 165 TH/MM3 (150-450); RED BLOOD COUNT 4.27 MIL/MM3 (4.50-5.90); RED CELL DISTRIBUTION WIDTH 20.9 % (11.6-17.2); WHITE BLOOD COUNT 7.2 TH/MM3 (4.0-11.0)
[2016-10-05 10:25] LABS: POTASSIUM 4.4 MEQ/L (3.5-5.1)
[2016-10-05] MEDS ORDERED: LEVE500 PO (10:31)
--- NOTE | 2016-10-05 11:55 | EKG ---
Date Performed: 10/04/2016 Time Performed: 15:14:02 PTAGE: 76 years EKG: Sinus arrrest with junctional escape rhythm Left axis deviation RBBB with left anterior fas cicular block Anterolateral ischemia Prolonged corrected QT interval Baseline wander and artifact powell it accuracy of interpretation specifically regarding the presence of P waves. Abnormal ECG PREVIOUS TRACING : 10/03/2016 10.48 DOCTOR: Rizwan Cruz Interpretating Date/Time 10/05/2016 11:54:32
--- NOTE | 2016-10-05 17:08 | HHI.DS ---
Discharge Summary Admission Date Sep 28, 2016 at 22:40 Discharge Date: Oct 05, 2016 Admitting Diagnosis afib w rvr,sob Consultants cardiology Brief History "76-year-old male with history of hypertension, dyslipidemia, and diabetes, coronary artery disease, A. fib and CHF presents today here with shortness of breath. Patient has had approximately one week of dyspnea mostly exertional and when laying flat. Patient states he has not been able lay flat and instead lays on his side to sleep. He denies any cough or chest congestion. No chest pain. No increase in peripheral edema. He has had recent ablation by Dr. Fay and his wrapper off is Dr. Echavarria." CBC/BMP: 10/05/16 0938 10/05/16 0938 Significant Findings Laboratory Tests Test 10/03/16 10/04/16 10/05/16 04:57 04:46 09:38 Red Blood Count 4.30 MIL/MM3 4.43 MIL/MM3 4.27 MIL/MM3 (4.50-5.90) (4.50-5.90) (4.50-5.90) Hemoglobin 11.6 GM/DL 11.9 GM/DL 11.4 GM/DL (13.0-17.0) (13.0-17.0) (13.0-17.0) Hematocrit 35.5 % 37.1 % 36.1 % (39.0-51.0) (39.0-51.0) (39.0-51.0) Red Cell Distribution Width 21.9 % 21.2 % 20.9 % (11.6-17.2) (11.6-17.2) (11.6-17.2) Platelet Count 143 TH/MM3 146 TH/MM3 (150-450) (150-450) Blood Urea Nitrogen 22 MG/DL (7-18) 22 MG/DL (7-18) Estimat Glomerular Filtration 54 ML/MIN (>89) 49 ML/MIN (>89) 50 ML/MIN (>89) Rate Random Glucose 149 MG/DL 144 MG/DL 213 MG/DL (74-106) (74-106) (74-106) Activated Partial 56.9 SEC Thromboplast Time (24.3-30.1) Creatinine 1.39 MG/DL 1.38 MG/DL (0.60-1.30) (0.60-1.30) Mean Corpuscular Hemoglobin 26.7 PG (27.0-34.0) Mean Corpuscular Hemoglobin 31.5 % Concent (32.0-36.0) Neutrophils (%) (Auto) 78.0 % (16.0-70.0) Monocytes (%) (Auto) 9.2 % (0.0-8.0) Lymphocytes # (Auto) 0.8 TH/MM3 (1.0-4.8) Imaging Last Impressions Chest X-Ray 10/03/16 0600 Signed Impressions: Service Date/Time: , October 03, 2016 03:45 - CONCLUSION: No significant interval changes. Jagdish Burton MD Head CT 09/30/16 0000 Signed Impressions: Service Date/Time: Friday, September 30, 2016 17:22 - CONCLUSION: Area of encephalomalacia in the posterior right temporal lobe and right frontal lobe consistent with old strokes. No evidence of acute hemorrhage or edema. Franco Shore MD Hospital Course 68 yo male with pmhx of HTN, dyslipidemia, DM, CAD, A-Fib, and CHF presented to ED for SOB. Found to be in persistent A-Fib with RVR. Recently had ablation by Dr. Myrick, his wrapper off is Dr. Echavarria. Patient was started on cardizem drip, metoprolol, and dig. Dig was stopped due to visual changes. Neuro was also consulted regarding visual changes. The patient has a history of seizure disorder. EEG and CT head performed, keppra increased due to possible epileptiform activity. He was cardioverted on 10/03. Tikosyn initiated. Resumed on his xarelto, rate controlled with cardizem and metoprolol. D/C home in stable condition on 10/05 when cleared by cardiology. Pt Condition on Discharge: Stable Discharge Disposition: Discharge Home Discharge Instructions DIET: Follow Instructions for: Heart Healthy Diet Activities you can perform: Weight Bearing as Jadyn New Medications: Dofetilide (Tikosyn) 250 Mcg Cap 500 MCG PO BID atrial fibrillation #60 CAP Levetiracetam (Keppra) 500 Mg Tab 1000 MG PO BID seizure #60 TAB Continued Medications: Atorvastatin (Atorvastatin) 80 Mg Tab 80 MG PO HS Cholesterol Management TAB Diltiazem CD 24 HR (Cardizem CD 24 HR) 180 Mg Caper 180 MG PO DAILY Ref 0 CAP Furosemide (Lasix) 40 Mg Tab 40 MG PO DAILY TAB Glipizide (Glipizide) 5 Mg Tab 5 MG PO DAILY Take 30 minutes before a meal Blood Sugar Management Ref 0 TAB Insulin Human NPH Inj (Humulin N Inj) 1,000 Unit/10 Ml Vial UNITS SQ DIRECTED Blood Sugar Management Ref 0 ML Metoprolol Succinate ER 24 HR (Metoprolol Succinate ER 24 HR) 200 Mg Tab 200 MG PO DAILY Ref 0 TAB Nitroglycerin SL (Nitroglycerin SL) 0.4 Mg Subl 0.4 MG SL DIRECTED ONE TABLET UNDER THE TONGUE NEEDED FOR CHEST PAIN, MAY REPEAT EVERY FIVE MINUTES FOR A TOTAL OF 3 DOSES OR CALL 911 IF NO RELIEF PRN CHEST PAIN Ref 0 TAB.SL Omeprazole (Omeprazole) 20 Mg Tab 20 MG PO DAILY Ref 0 TAB Potassium Chloride Microencaps (Klor-Con M20) 20 Meq Tab 20 MEQ PO Q12HR Electrolyte Replacement Ref 0 TAB Rivaroxaban (Xarelto) 20 Mg Tab 20 MG PO HS Blood Clot Prevention Ref 0 TAB Discontinued Medications: Clonidine (Clonidine) 0.2 Mg Tab 0.2 MG PO BID Blood Pressure Management Ref 0 TAB Levetiracetam (Levetiracetam) 500 Mg Tab 500 MG PO BID Control Seizures Ref 0 TAB Carmen Ayala MD Oct 05, 2016 17:08
--- NOTE | 2016-10-07 08:41 | EKG ---
Date Performed: 10/05/2016 Time Performed: 09:14:40 PTAGE: 76 years EKG: Sinus rhythm . Left axis deviation RBBB with left anterior fascicular block Lateral ST-T changes may be due to evert cardial ischemia Abnormal ECG NO PREVIOUS TRACING DOCTOR: Rizwan Cruz Interpretating Date/Time 10/07/2016 08:41:03
== END 2016-10-05 12:02 | disposition home or self-care (01) | DRG 309 ==
LOC: NEPE 19:55 → NEDA 22:40 → HIMN 23:40 → HCIS 10-04 14:51
PROVIDERS: ADMIT Family Medicine; ATTEND Family Medicine
PROC: 5A2204Z Restoration of Cardiac Rhythm, Single (ICD-10-PCS; principal; 2016-10-03)
DX: I48.1 Persistent atrial fibrillation (principal); J98.11 Atelectasis; N17.9 Acute kidney failure, unspecified; E11.22 Type 2 diabetes mellitus with diabetic chronic kidney disease; D69.6 Thrombocytopenia, unspecified; I50.22 Chronic systolic (congestive) heart failure; I13.0 Hypertensive heart and chronic kidney disease with heart failure and stage 1 through stage 4 chronic kidney disease, or unspecified chronic kidney disease; N18.3 Chronic kidney disease, stage 3 (moderate); I48.92 Unspecified atrial flutter; E78.5 Hyperlipidemia, unspecified; I25.10 Atherosclerotic heart disease of native coronary artery without angina pectoris; K21.9 Gastro-esophageal reflux disease without esophagitis; I47.1 Supraventricular tachycardia; I25.2 Old myocardial infarction; G40.909 Epilepsy, unspecified, not intractable, without status epilepticus; I45.2 Bifascicular block; D64.9 Anemia, unspecified; L55.9 Sunburn, unspecified; K57.90 Diverticulosis of intestine, part unspecified, without perforation or abscess without bleeding; H91.91 Unspecified hearing loss, right ear; Z79.01 Long term (current) use of anticoagulants; Z79.4 Long term (current) use of insulin; Z86.61 Personal history of infections of the central nervous system; Z86.73 Personal history of transient ischemic attack (TIA), and cerebral infarction without residual deficits; Z95.5 Presence of coronary angioplasty implant and graft; Z95.810 Presence of automatic (implantable) cardiac defibrillator
CPT/HCPCS: 70450; 71010; 76937; 80048; 80053; 80162; 82550; 82948; 83735; 83880; 84100; 84443; 84484; 85025; 85027; 85610; 85730; 87641; 93005; 94664; 95819; 96361; 96365; 96375; J0282; J1160; J1644; J3475; J7040; J7060

== ENCOUNTER 2016-10-06 11:38 | Emergency (ER) | payer MEDICARE, OTHER ==
[~2016-10-06] VITALS: Ht 172.7 cm; Wt 96.0 kg
[~2016-10-06 11:38] MED LIST changes: -AMIO200T PO; -CLON0.2T PO; +DOFE250 PO; +LEVE500 PO; -LEVE500T8 PO; -MULT1TAB84 PO
[2016-10-06 11:39] VITALS: BP 116/70; PULSE 67; RESP 16; TEMP 98.1; O2SAT 95
[2016-10-06] MEDS ORDERED: BUMETANIDE 1 MG TAB PO ONE (14:00)
[2016-10-06 14:38] LABS: BICARBONATE 30.3 MEQ/L (21.0-32.0)
[2016-10-06 14:39] LABS: POTASSIUM 5.1 MEQ/L (3.5-5.1)
[2016-10-06 16:00] VITALS: BP 112/59; PULSE 60; RESP 16; O2SAT 98
--- NOTE | 2016-10-06 16:06 | PD ---
HPI Chief Complaint: Edema Time Seen by Provider: 13:30 Travel History International Travel<30 days: No Contact w/Intl Traveler<30days: No Traveled to known affect area: No History of Present Illness HPI This patient complains of swelling in his legs. He was literally discharged yesterday and has history of CHF. He is on diuretics which she reports compliance with. He says the swelling is chronic but seemed to be a little bit worse. He is not short of breath. Denies fever or leg pain. Symptoms severity is mild. No alleviating factors. Duration one week PFSH Past Medical History Hx Anticoagulant Therapy: Yes Arthritis: Yes Asthma: No Atrial Fibrillation: Yes Autoimmune Disease: No Blood Disorders: No Anxiety: No Depression: No Heart Rhythm Problems: Yes (a fib ) Cancer: No Cardiac Catheterization: Yes (STENT X 3 CAN'T REMEMBER DATE.) Cardiovascular Problems: Yes (A-FIB) High Cholesterol: Yes Chemotherapy: No Chest Pain: No Congestive Heart Failure: Yes COPD: No Cerebrovascular Accident: Yes (CVA , (denies but recall history says yes? 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 ) Sickle Cell Disease: No Sleep Apnea: No Thyroid Disease: No Ulcer: Yes (GASTRIC) Tetanus Vaccination: Unknown Influenza Vaccination: Yes (2016) PNEUMOCCOCAL Vaccine (Year): 1 Past Surgical History Abdominal Surgery: Yes (cholecystectomy) AICD: Yes Appendectomy: No Arteriovenous Shunt: No Cardiac Surgery: Yes (STENTS PLACED) Cholecystectomy: Yes Coronary Stent: Yes (1994 /pacer placed 2 yr ago) Ear Surgery: No Endocrine Surgery: No Eye Surgery: Yes (right eye detached retina repair;right eye cataract removal) Genitourinary Surgery: Yes (penile implantation and removal) Gynecologic Surgery: No Insulin Pump: No Joint Replacement: No Neurologic Surgery: Yes (BRAIN SX FOR ABCESS. STENTS PLACED.) Oral Surgery: No Pacemaker: Yes Thoracic Surgery: Yes (AICD) Other Surgery: Yes Social History Alcohol Use: Yes ("A BEER ONCE OR TWICE A MONTH") Tobacco Use: No Substance Use: No Allergies-Medications (Allergen,Severity, Reaction): Coded Allergies: No Known Allergies (Verified , 10/06/16) Reported Meds & Prescriptions Reported Meds & Active Scripts Active Keppra (Levetiracetam) 500 Mg Tab 1,000 Mg PO BID Tikosyn (Dofetilide) 250 Mcg Cap 500 Mcg PO BID Reported Cardizem CD 24 HR (Diltiazem CD 24 HR) 180 Mg Caper 180 Mg PO DAILY Omeprazole 20 Mg Tab 20 Mg PO DAILY Nitroglycerin SL (Nitroglycerin) 0.4 Mg Subl 0.4 Mg SL DIRECTED PRN ONE TABLET UNDER THE TONGUE NEEDED FOR CHEST PAIN, MAY REPEAT EVERY FIVE MINUTES FOR A TOTAL OF 3 DOSES OR CALL 911 IF NO RELIEF Klor-Con M20 (Potassium Chloride Microencaps) 20 Meq Tab 20 Meq PO Q12HR Glipizide 5 Mg Tab 5 Mg PO DAILY Take 30 minutes before a meal Humulin N Inj (Insulin Human NPH) 1,000 Unit/10 Ml Vial Units SQ DIRECTED Xarelto (Rivaroxaban) 20 Mg Tab 20 Mg PO HS Metoprolol Succinate ER 24 HR (Metoprolol Succinate) 200 Mg Tab 200 Mg PO DAILY Lasix (Furosemide) 40 Mg Tab 40 Mg PO DAILY Atorvastatin (Atorvastatin Calcium) 80 Mg Tab 80 Mg PO HS Review of Systems General / Constitutional: No: Fever Eyes: No: Visual changes HENT: No: Headaches Cardiovascular: Positive: Edema, No: Chest Pain or Discomfort Respiratory: No: Shortness of Breath Gastrointestinal: No: Abdominal Pain Genitourinary: No: Dysuria Musculoskeletal: Positive: Edema, No: Pain Skin: No Rash Neurologic: No: Weakness Psychiatric: No: Depression Endocrine: No: Polydipsia Hematologic/Lymphatic: No: Easy Bruising Physical Exam Narrative GENERAL: Well-nourished, well-developed patient in no apparent distress. SKIN: Focused skin assessment reveals no rash and nodules. Skin is Warm and dry. HEAD: Atraumatic. Normocephalic. EYES: Pupils equal and round. No scleral icterus. No injection or drainage. ENT: No nasal bleeding or discharge. Mucous membranes pink and moist. NECK: Trachea midline. No JVD. CARDIOVASCULAR: Regular rate and rhythm. No murmur appreciated. RESPIRATORY: No accessory muscle use. Clear to auscultation. Breath sounds equal bilaterally. GASTROINTESTINAL: Abdomen soft, non-tender, nondistended. Hepatic and splenic margins not palpable. MUSCULOSKELETAL: No obvious deformities. No clubbing. No cyanosis. Symmetric edema from the midshin down bilaterally. No erythema or warmth NEUROLOGICAL: Awake and alert. No obvious cranial nerve deficits. Motor grossly within normal limits. Normal speech. PSYCHIATRIC: Appropriate mood and affect; insight and judgment normal. Data Data Last Documented VS Vital Signs Date Time Temp Pulse Resp B/P Pulse Ox O2 Delivery O2 Flow Rate FiO2 10/06/16 11:39 98.1 67 16 116/70 95 Orders Bumetanide (Bumetanide) (10/06/16 14:00) Complete Blood Count With Diff (10/06/16 13:52) Basic Metabolic Panel (Bmp) (10/06/16 13:52) Glass Fitter / Telemetry BONNIE.Q8H (10/06/16 13:52) Labs Laboratory Tests Test 10/06/16 13:50 Sodium Level 138 MEQ/L Potassium Level 5.1 MEQ/L Chloride Level 100 MEQ/L Carbon Dioxide Level 30.3 MEQ/L Anion Gap 8 MEQ/L Blood Urea Nitrogen 19 MG/DL Creatinine 1.47 MG/DL Estimat Glomerular Filtration 46 ML/MIN Rate Random Glucose 106 MG/DL Calcium Level 9.1 MG/DL MDM Medical Decision Making Medical Screen Exam Complete: Yes Emergency Medical Condition: Yes Medical Record Reviewed: Yes Differential Diagnosis CHF, renal failure, noncompliance Narrative Course I have reviewed the patient's electronic medical record. Reviewed his discharge summary from yesterday reviewed his labs from yesterday Metabolic profile was done and compared to yesterday Electrolytes and renal function is similar to prior I gave him 2 mg oral Bumex He has diuresis significant amount Stable for outpatient follow-up Diagnosis Primary Impression: Leg edema Additional Impression: Chronic systolic congestive heart failure Additional Instructions: Elevate legs Use low-sodium diet Wear knee-high compression stockings The patient was advised to follow up with their physician and return if they worsen. Med/Other Pt SpecificInfo: Other Disposition: 01 DISCHARGE HOME Condition: Stable Kocisko,Bartolo J. MD Oct 06, 2016 16:06
== END 2016-10-06 16:21 | disposition home or self-care (01) ==
LOC: NEPC 11:38
DX: R60.9 Edema, unspecified (principal); I50.22 Chronic systolic (congestive) heart failure; M13.88 Other specified arthritis, other site; I48.91 Unspecified atrial fibrillation; E78.00 Pure hypercholesterolemia, unspecified; E11.9 Type 2 diabetes mellitus without complications; K21.9 Gastro-esophageal reflux disease without esophagitis; I10 Essential (primary) hypertension; I25.2 Old myocardial infarction
CPT/HCPCS: 80048; 99283

== ENCOUNTER 2017-01-17 18:35 | Inpatient (IN) | payer OTHER, MEDICARE ==
[~2017-01-17] VITALS: Ht 172.7 cm; Wt 94.6 kg
[~2017-01-17 18:35] MED LIST changes: -ATOR1TAB18 PO; +ATOR80TA45 PO; +KLOR20TA3 PO; +METO-393 PO; -METO200T3 PO; -OMEP20TA PO; +OMEP20TA93 PO; -POTA-245 PO
[2017-01-17 18:36] VITALS: BP 128/65; PULSE 116; RESP 20; TEMP 98.8; O2SAT 99
[2017-01-17 18:45] VITALS: O2SAT 100
[2017-01-17] MEDS ORDERED: CEFEPIME INJ 2,000 MG in SODIUM CHLORIDE 0.9% INJ 100 ML IV ONE (18:45)
[2017-01-17] MEDS ORDERED: SODIUM CHLORIDE 0.9% FLUSH 10 ML FLUSH IVF PRN (18:45)
[2017-01-17 18:47] VITALS: BP_SYST 117; BP_SYST 128; BP_DIAS 58; BP_DIAS 65
--- NOTE | 2017-01-17 18:50 | PD ---
HPI Chief Complaint: Cardiac Complaint Time Seen by Provider: 18:39 Travel History International Travel<30 days: No Contact w/Intl Traveler<30days: No Traveled to known affect area: No History of Present Illness HPI 54-year-old male arrives by EMS. For the last couple days he's felt generally weak and anorexic. Today he felt his pacing device discharge several times. EMS reports that on scene the patient was felt to have a pulse of 30 and upon placing him on a [place] his rhythm was ventricular tachycardia and his AICD fired. In the ER the patient denies chest pain however reports positive subjective fever. No cough. No loss of consciousness. Urination has been normal. There is been no vomiting however he has had nausea. He reports severe diaphoresis this morning. PFSH Past Medical History Hx Anticoagulant Therapy: Yes Arthritis: Yes Asthma: No Atrial Fibrillation: Yes Autoimmune Disease: No Blood Disorders: No Anxiety: No Depression: No Heart Rhythm Problems: Yes Cancer: No Cardiac Catheterization: Yes (STENT X 3 CAN'T REMEMBER DATE.) Cardiovascular Problems: Yes (A-FIB) High Cholesterol: Yes Chemotherapy: No Chest Pain: No Congestive Heart Failure: Yes COPD: No Cerebrovascular Accident: Yes Coronary Artery Disease: Yes Diabetes: Yes Patient Takes Glucophage: No Diminished Hearing: Yes (WEARS RIGHT HEARING AID) Endocrine: Yes Gastrointestinal Disorders: Yes (GALLSTONES) GERD: Yes Glaucoma: No Genitourinary: No Headaches: No Hepatitis: No Hiatal Hernia: No Hypertension: Yes Immune Disorder: No Implanted Vascular Access Dvce: Yes Kidney Stones: No Musculoskeletal: Yes Neurologic: No Psychiatric: No Reproductive: No Respiratory: Yes (CHF) Integumentary: No Immunizations Current: Yes Migraines: No Myocardial Infarction: Yes Radiation Therapy: No Renal Failure: No 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 ) Sickle Cell Disease: No Sleep Apnea: No Thyroid Disease: No Ulcer: Yes (GASTRIC) Tetanus Vaccination: Unknown Influenza Vaccination: No PNEUMOCCOCAL Vaccine (Year): 1 Past Surgical History Abdominal Surgery: Yes (cholecystectomy) AICD: Yes Appendectomy: No Arteriovenous Shunt: No Cardiac Surgery: Yes (STENTS PLACED) Cholecystectomy: Yes Coronary Stent: Yes (1994 /pacer placed 2 yr ago) Ear Surgery: No Endocrine Surgery: No Eye Surgery: Yes (right eye detached retina repair;right eye cataract removal) Genitourinary Surgery: Yes (penile implantation and removal) Gynecologic Surgery: No Insulin Pump: No Joint Replacement: No Neurologic Surgery: Yes (BRAIN SX FOR ABCESS. STENTS PLACED.) Oral Surgery: No Pacemaker: Yes Thoracic Surgery: Yes (AICD) Other Surgery: Yes Social History Alcohol Use: Yes ("A BEER ONCE OR TWICE A MONTH") Tobacco Use: No Substance Use: No Allergies-Medications (Allergen,Severity, Reaction): Coded Allergies: No Known Allergies (Verified Allergy, Unknown, 01/17/17) Reported Meds & Prescriptions Reported Meds & Active Scripts Active Keppra (Levetiracetam) 500 Mg Tab 1,000 Mg PO BID Tikosyn (Dofetilide) 250 Mcg Cap 500 Mcg PO BID Reported Cardizem CD 24 HR (Diltiazem CD 24 HR) 180 Mg Caper 180 Mg PO DAILY Omeprazole 20 Mg Tab 20 Mg PO DAILY Nitroglycerin SL (Nitroglycerin) 0.4 Mg Subl 0.4 Mg SL DIRECTED PRN ONE TABLET UNDER THE TONGUE NEEDED FOR CHEST PAIN, MAY REPEAT EVERY FIVE MINUTES FOR A TOTAL OF 3 DOSES OR CALL 911 IF NO RELIEF Klor-Con M20 (Potassium Chloride Microencaps) 20 Meq Tab 20 Meq PO Q12HR Glipizide 5 Mg Tab 5 Mg PO DAILY Take 30 minutes before a meal Humulin N Inj (Insulin Human NPH) 1,000 Unit/10 Ml Vial Units SQ DIRECTED Xarelto (Rivaroxaban) 20 Mg Tab 20 Mg PO HS Metoprolol Succinate ER 24 HR (Metoprolol Succinate) 200 Mg Tab 200 Mg PO DAILY Lasix (Furosemide) 40 Mg Tab 40 Mg PO DAILY Atorvastatin (Atorvastatin Calcium) 80 Mg Tab 80 Mg PO HS Review of Systems Except as stated in HPI: all other systems reviewed are Neg General / Constitutional: No: Fever Physical Exam Narrative GENERAL: 64-year-old male well-nourished well-developed mild distress secondary to pain and/or anxiety SKIN: Focused skin assessment warm/dry. HEAD: Atraumatic. Normocephalic. EYES: Pupils equal and round. No scleral icterus. No injection or drainage. ENT: No nasal bleeding or discharge. Mucous membranes pink and moist. NECK: Trachea midline. No JVD. CARDIOVASCULAR: Tachycardia. Somewhat irregular. RESPIRATORY: Lung sounds present bilaterally. No tachypnea. GASTROINTESTINAL: Abdomen soft, non-tender, nondistended. Hepatic and splenic margins not palpable. MUSCULOSKELETAL: No obvious deformities. No clubbing. No cyanosis. No edema. NEUROLOGICAL: Awake and alert. No obvious cranial nerve deficits. Motor grossly within normal limits. Normal speech. PSYCHIATRIC: Appropriate mood and affect; insight and judgment normal. Data Data Last Documented VS Vital Signs Date Time Temp Pulse Resp B/P (MAP) Pulse Ox O2 Delivery O2 Flow Rate FiO2 01/17/17 18:47 128/65 (86) 117/58 (77) 01/17/17 18:45 Non-Rebreather 100 01/17/17 18:45 100 01/17/17 18:36 98.8 116 20 Orders Orders Electrocardiogram (01/17/17 18:39) Basic Metabolic Panel (Bmp) (01/17/17 18:39) Ckmb (Isoenzyme) Profile (01/17/17 18:39) Complete Blood Count With Diff (01/17/17 18:39) Magnesium (Mg) (01/17/17 18:39) Prothrombin Time / Inr (Pt) (01/17/17 18:39) Act Partial Throm Time (Ptt) (01/17/17 18:39) Troponin I (01/17/17 18:39) Chest, Single Ap (01/17/17 18:39) Ecg Monitoring (01/17/17 18:39) Bilateral Bp Monitoring (01/17/17 18:39) Iv Access Insert/Monitor (01/17/17 18:39) Oximetry (01/17/17 18:39) Oxygen Administration (01/17/17 18:39) Sodium Chloride 0.9% Flush (Ns Flush) (01/17/17 18:45) Blood Culture (01/17/17 18:39) Lactic Acid (01/17/17 18:39) Cefepime Inj (Maxipime Inj) (01/17/17 18:45) CKMB (01/17/17 18:50) CKMB% (01/17/17 18:50) Urinalysis - C+S If Indicated (01/17/17 19:56) Sodium Chlorid 0.9% 500 Ml Inj (Ns 500 M (01/17/17 20:00) Admit Order (Ed Use Only) (01/17/17 ) Parts Counter Specialist / Telemetry BONNIE.Q8H (01/17/17 20:41) Diet Heart Healthy (01/18/17 Breakfast) Activity Bed Rest (01/17/17 20:41) Notify Dr: Other (01/17/17 20:41) Labs Laboratory Tests Test 01/17/17 18:50 White Blood Count 20.6 TH/MM3 Red Blood Count 4.36 MIL/MM3 Hemoglobin 13.4 GM/DL Hematocrit 40.8 % Mean Corpuscular Volume 93.6 FL Mean Corpuscular Hemoglobin 30.7 PG Mean Corpuscular Hemoglobin Concent 32.8 % Red Cell Distribution Width 16.1 % Platelet Count 109 TH/MM3 Mean Platelet Volume 8.4 FL Neutrophils (%) (Auto) 94.3 % Lymphocytes (%) (Auto) 1.3 % Monocytes (%) (Auto) 4.0 % Eosinophils (%) (Auto) 0.0 % Basophils (%) (Auto) 0.4 % Neutrophils # (Auto) 19.4 TH/MM3 Lymphocytes # (Auto) 0.3 TH/MM3 Monocytes # (Auto) 0.8 TH/MM3 Eosinophils # (Auto) 0.0 TH/MM3 Basophils # (Auto) 0.1 TH/MM3 CBC Comment DIFF FINAL Differential Comment Prothrombin Time 18.1 SEC Prothromb Time International Ratio 1.6 RATIO Activated Partial Thromboplast Time 37.5 SEC Blood Urea Nitrogen 24 MG/DL Creatinine 2.46 MG/DL Random Glucose 175 MG/DL Calcium Level 9.1 MG/DL Magnesium Level 1.8 MG/DL Sodium Level 136 MEQ/L Potassium Level 4.8 MEQ/L Chloride Level 102 MEQ/L Carbon Dioxide Level 20.7 MEQ/L Anion Gap 13 MEQ/L Estimat Glomerular Filtration Rate 26 ML/MIN Lactic Acid Level 7.5 mmol/L Total Creatine Kinase 265 U/L Creatine Kinase MB 1.9 NG/ML Troponin I 0.22 NG/ML MDM Medical Decision Making Medical Screen Exam Complete: Yes Emergency Medical Condition: Yes Medical Record Reviewed: Yes Differential Diagnosis arrhythmia, electrolyte imbalance, anemia Narrative Course case d/w Dr Jackman at 7:00pm to follow up and disposition Damián Harrison MD Jan 17, 2017 18:50
[2017-01-17 19:08] LABS: AUTOMATED NEUTROPHIL # 19.4 TH/MM3 (1.8-7.7); BASOPHIL # 0.1 TH/MM3 (0-0.2); BASOPHIL % 0.4 % (0.0-2.0); HEMATOCRIT 40.8 % (39.0-51.0); HEMO FLAGS DIFF FINAL; LYMPH % 1.3 % (9.0-44.0); LYMPHOCYTE # 0.3 TH/MM3 (1.0-4.8); MEAN CELL VOLUME 93.6 FL (80.0-100.0); MEAN CORPUSCULAR HEMOGLOBIN 30.7 PG (27.0-34.0); MEAN CORPUSCULAR HGB CONC 32.8 % (32.0-36.0); NEUT % 94.3 % (16.0-70.0); PLATELET COUNT 109 TH/MM3 (150-450); RED BLOOD COUNT 4.36 MIL/MM3 (4.50-5.90); RED CELL DISTRIBUTION WIDTH 16.1 % (11.6-17.2); WHITE BLOOD COUNT 20.6 TH/MM3 (4.0-11.0)
--- NOTE | 2017-01-17 19:16 | RADRPT ---
EXAM DATE/TIME: 01/17/2017 19:11 [facility] COMPARISON: No previous studies available for comparison. INDICATIONS : Chest pain and shortness of breath. MEDICAL HISTORY : Hypercholesterolemia. Diabetes mellitus type II. Cardiovascular disease. SURGICAL HISTORY : Pacemaker. ENCOUNTER: Initial ACUITY: 1 day PAIN SCORE: 5/10 LOCATION: Bilateral chest FINDINGS: A single view of the chest demonstrates the lungs to be symmetrically aerated without evidence of mas s, infiltrate or effusion. The cardiac silhouette remains enlarged Osseous structures are intact. CONCLUSION: Stable cardiomegaly. Left subclavian bipolar pacer Franco Shore MD on January 17, 2017 at 19:13 Board Certified Radiologist. This report was verified electronically.
[2017-01-17 19:22] LABS: APTT (PATIENT) 37.5 SEC (24.3-30.1); INTERNATIONAL NORMALIZED RATIO 1.6 RATIO; PROTHROMBIN TIME - PATIENT 18.1 SEC (9.8-11.6)
--- NOTE | 2017-01-17 19:24 | PD ---
Physical Exam Date Seen by Provider: Jan 17, 2017 Time Seen by Provider: 19:15 Narrative Accepted in transfer of care from Dr. Harrison GENERAL: Well-developed well-nourished pleasant male in no acute distress no respiratory distress SKIN: Warm and dry. HEAD: Normocephalic. EYES: No scleral icterus. No injection or drainage. NECK: Supple, trachea midline. No JVD or lymphadenopathy. CARDIOVASCULAR: Regular rate and rhythm without murmurs, gallops, or rubs. RESPIRATORY: Breath sounds equal bilaterally. No accessory muscle use. GASTROINTESTINAL: Abdomen soft, non-tender, nondistended. MUSCULOSKELETAL: No cyanosis, or edema. BACK: Nontender without obvious deformity. No CVA tenderness. Data Data Last Documented VS Vital Signs Date Time Temp Pulse Resp B/P (MAP) Pulse Ox O2 Delivery O2 Flow Rate FiO2 01/17/17 18:47 128/65 (86) 117/58 (77) 01/17/17 18:45 Non-Rebreather 100 01/17/17 18:45 100 01/17/17 18:36 98.8 116 20 Orders Orders Electrocardiogram (01/17/17 18:39) Basic Metabolic Panel (Bmp) (01/17/17 18:39) Ckmb (Isoenzyme) Profile (01/17/17 18:39) Complete Blood Count With Diff (01/17/17 18:39) Magnesium (Mg) (01/17/17 18:39) Prothrombin Time / Inr (Pt) (01/17/17 18:39) Act Partial Throm Time (Ptt) (01/17/17 18:39) Troponin I (01/17/17 18:39) Chest, Single Ap (01/17/17 18:39) Ecg Monitoring (01/17/17 18:39) Bilateral Bp Monitoring (01/17/17 18:39) Iv Access Insert/Monitor (01/17/17 18:39) Oximetry (01/17/17 18:39) Oxygen Administration (01/17/17 18:39) Sodium Chloride 0.9% Flush (Ns Flush) (01/17/17 18:45) Blood Culture (01/17/17 18:39) Lactic Acid (01/17/17 18:39) Cefepime Inj (Maxipime Inj) (01/17/17 18:45) CKMB (01/17/17 18:50) CKMB% (01/17/17 18:50) Urinalysis - C+S If Indicated (01/17/17 19:56) Sodium Chlorid 0.9% 500 Ml Inj (Ns 500 M (01/17/17 20:00) Admit Order (Ed Use Only) (01/17/17 ) Cashier General / Telemetry BONNIE.Q8H (01/17/17 20:41) Diet Heart Healthy (01/18/17 Breakfast) Activity Bed Rest (01/17/17 20:41) Notify Dr: Other (01/17/17 20:41) Labs Laboratory Tests Test 01/17/17 18:50 White Blood Count 20.6 TH/MM3 Red Blood Count 4.36 MIL/MM3 Hemoglobin 13.4 GM/DL Hematocrit 40.8 % Mean Corpuscular Volume 93.6 FL Mean Corpuscular Hemoglobin 30.7 PG Mean Corpuscular Hemoglobin Concent 32.8 % Red Cell Distribution Width 16.1 % Platelet Count 109 TH/MM3 Mean Platelet Volume 8.4 FL Neutrophils (%) (Auto) 94.3 % Lymphocytes (%) (Auto) 1.3 % Monocytes (%) (Auto) 4.0 % Eosinophils (%) (Auto) 0.0 % Basophils (%) (Auto) 0.4 % Neutrophils # (Auto) 19.4 TH/MM3 Lymphocytes # (Auto) 0.3 TH/MM3 Monocytes # (Auto) 0.8 TH/MM3 Eosinophils # (Auto) 0.0 TH/MM3 Basophils # (Auto) 0.1 TH/MM3 CBC Comment DIFF FINAL Differential Comment Prothrombin Time 18.1 SEC Prothromb Time International Ratio 1.6 RATIO Activated Partial Thromboplast Time 37.5 SEC Blood Urea Nitrogen 24 MG/DL Creatinine 2.46 MG/DL Random Glucose 175 MG/DL Calcium Level 9.1 MG/DL Magnesium Level 1.8 MG/DL Sodium Level 136 MEQ/L Potassium Level 4.8 MEQ/L Chloride Level 102 MEQ/L Carbon Dioxide Level 20.7 MEQ/L Anion Gap 13 MEQ/L Estimat Glomerular Filtration Rate 26 ML/MIN Lactic Acid Level 7.5 mmol/L Total Creatine Kinase 265 U/L Creatine Kinase MB 1.9 NG/ML Troponin I 0.22 NG/ML [facility] Medical Record Reviewed: Yes Supervised Visit with KATERYNA: No Interpretation(s) Last Impressions Chest X-Ray 01/17/17 1839 Signed Impressions: Service Date/Time: Tuesday, January 17, 2017 19:11 - CONCLUSION: Stable cardiomegaly. Left subclavian bipolar pacer Franco Shore MD CBC & BMP Diagram 01/17/17 18:50 Calcium Level 9.1, Magnesium Level 1.8 CBC & BMP Diagram 01/17/17 18:50 Calcium Level 9.1, Magnesium Level 1.8 Vital Signs Date Time Temp Pulse Resp B/P (MAP) Pulse Ox O2 Delivery O2 Flow Rate FiO2 01/17/17 18:47 128/65 (86) 117/58 (77) 01/17/17 18:45 Non-Rebreather 100 01/17/17 18:45 100 01/17/17 18:41 100 Non-Rebreather 100 01/17/17 18:36 98.8 116 20 128/65 (86) 99 Differential Diagnosis Accepted in transfer of care from Dr. Harrison; please refer to his dictation Narrative Course Accepted in transfer of care from Dr. Harrison for follow-up of defibrillator investigation/evaluation by [employer] and patient admission Defibrillator has been interrogated by community relations representative and indicates that defibrillator pacemaker is functioning properly the patient did have 13 episodes of V. fib that were shocked properly between 2 PM and 3 PM Information regarding defibrillator interrogation shared with on-call manager web application Dr. Harrison covering for patient's manager web application Dr. Echavarria also aware of elevation of troponin I; recommends patient Xarelto be discontinued and patient be continued on heparin without a bolus Patient's case discussed with on-call [facility] and Xarelto discontinued Patient stable at time of transfer from ED to the floor and no episodes of arrhythmia or noted during ED stay. Physician Communication Physician Communication discussed with Dr Harrison for DR Echavarria--d/c xarelto start heparin infusion with No bolus will consult in the AM; discussed with [facility] Diagnosis Primary Impression: Sepsis Qualified Codes: A41.9 - Sepsis, unspecified organism Additional Impressions: Cardiomyopathy with implantable cardioverter-defibrillator Ventricular fibrillation Lactic acidosis Elevated troponin Admitting Information Admitting Physician Requests: Admit Rafia Jackman MD Jan 17, 2017 19:24
[2017-01-17 19:49] LABS: ANION GAP 13 MEQ/L (5-15); BICARBONATE 20.7 MEQ/L (21.0-32.0); BLOOD UREA NITROGEN 24 MG/DL (7-18); CHLORIDE 102 MEQ/L (98-107); GLOMERULAR FILTRATION RATE 26 ML/MIN (>89); MAGNESIUM 1.8 MG/DL (1.5-2.5); POTASSIUM 4.8 MEQ/L (3.5-5.1); SODIUM (NA) 136 MEQ/L (136-145)
[2017-01-17 19:53] LABS: CREATINE KINASE 265 U/L (39-308)
[2017-01-17] MEDS ORDERED: SODIUM CHLORID 0.9% 500 ML INJ 500 ML IV ONE (20:00)
[2017-01-17 20:06] LABS: CKMB 1.9 NG/ML (0.5-3.6)
[2017-01-17 21:15] VITALS: BP 124/55; PULSE 60; RESP 28; O2SAT 98
[2017-01-17] MEDS ORDERED: LACTULOSE SYRUP 20 GM/30 ML CUP PO PRN (21:45)
[2017-01-17] MEDS ORDERED: NITROGLYCERIN 0.4 MG SL 25 TABS/BTL SL PRN (21:45)
[2017-01-17] MEDS ORDERED: ONDANSETRON HCL 4 MG/2 ML VIAL IVP PRN (21:45)
[2017-01-17] MEDS ORDERED: MAGNESIUM HYDROXIDE SUSP 30 ML CUP PO PRN (21:45)
[2017-01-17] MEDS ORDERED: BISACODYL 10 MG SUPP RECTAL PRN (21:45)
[2017-01-17] MEDS ORDERED: ACETAMINOPHEN 325 MG TAB PO PRN (21:45)
[2017-01-17] MEDS ORDERED: SODIUM CHLORIDE 0.9% FLUSH 10 ML FLUSH IV FLUSH PRN (21:45)
[2017-01-17] MEDS ORDERED: SENNOSIDES 8.6 MG TAB PO PRN (21:45)
[2017-01-17] MEDS ORDERED: NALOXONE HCL 0.4 MG/ML AMP IV PUSH PRN (21:45)
--- NOTE | 2017-01-17 21:53 | HHI.HP ---
[facility] Service [facility] Primary Care Physician Teja Beach Do, MD Admission Diagnosis sepsis; aicd vfib; lactic acidosis; elevated troponin I Diagnoses: Travel History International Travel<30 Days: No Contact w/Intl Traveler <30 Da: No Traveled to Known Affected Are: No History of Present Illness 76-year-old male with a past medical history significant for CHF, CAD and A. fib anticoagulated on Xarelto with insulin-dependent diabetes mellitus presents to the emergency department after his defibrillator went off 13 times. The patient states that he was going to get out of bed this morning when he was shocked. He states he was shocked many times after that. Interrogation of his defibrillator revealed 13 shocks for V. fib. The patient also was febrile yesterday and has a leukocytosis to 20. Chest x-ray within normal limits. Urine pending. Lactic acid 7.5. Review of Systems Positive fever Denies blurry vision, otorrhea, rhinorrhea Denies sore throat and cough No chest pain, no shortness of breath No abdominal pain Denies constipation/diarrhea/nausea/vomiting Denies muscle pain/weakness No rashes Past Family Social History Past Medical History CHF CAD A. fib anticoagulated on Xarelto, radiologist is Dr. Echavarria Insulin-dependent diabetes mellitus Past Surgical History Brain abscess removal and remote history Status post multiple stent placements 20 years ago Cholecystectomy Reported Medications Reported Meds & Active Scripts Active Keppra (Levetiracetam) 500 Mg Tab 1,000 Mg PO BID Tikosyn (Dofetilide) 250 Mcg Cap 500 Mcg PO BID Reported Cardizem CD 24 HR (Diltiazem CD 24 HR) 180 Mg Caper 180 Mg PO DAILY Omeprazole 20 Mg Tab 20 Mg PO DAILY Nitroglycerin SL (Nitroglycerin) 0.4 Mg Subl 0.4 Mg SL DIRECTED PRN ONE TABLET UNDER THE TONGUE NEEDED FOR CHEST PAIN, MAY REPEAT EVERY FIVE MINUTES FOR A TOTAL OF 3 DOSES OR CALL 911 IF NO RELIEF Klor-Con M20 (Potassium Chloride Microencaps) 20 Meq Tab 20 Meq PO Q12HR Glipizide 5 Mg Tab 5 Mg PO DAILY Take 30 minutes before a meal Humulin N Inj (Insulin Human NPH) 1,000 Unit/10 Ml Vial Units SQ DIRECTED Xarelto (Rivaroxaban) 20 Mg Tab 20 Mg PO HS Metoprolol Succinate ER 24 HR (Metoprolol Succinate) 200 Mg Tab 200 Mg PO DAILY Lasix (Furosemide) 40 Mg Tab 40 Mg PO DAILY Atorvastatin (Atorvastatin Calcium) 80 Mg Tab 80 Mg PO HS Allergies: Coded Allergies: No Known Allergies (Verified Adverse Reaction, Unknown, 01/17/17) Family History Both parents with coronary artery disease, dad with CVA Social History Occasional alcohol. 62-auxh-rtge history of smoking, quit 20 years ago. Denies marijuana or illicit drugs. Physical Exam Vital Signs Vital Signs Date Time Temp Pulse Resp B/P (MAP) Pulse Ox O2 Delivery O2 Flow Rate FiO2 01/17/17 21:15 60 28 124/55 (78) 98 Nasal Cannula 6.00 01/17/17 18:47 128/65 (86) 117/58 (77) 01/17/17 18:45 Non-Rebreather 100 01/17/17 18:45 100 01/17/17 18:41 100 Non-Rebreather 100 01/17/17 18:36 98.8 116 20 128/65 (86) 99 Physical Exam GENERAL: White male lying in bed with high flow oxygen mask SKIN: No rashes, ecchymoses or lesions. Cool and dry. HEAD: Atraumatic. Normocephalic. No temporal or scalp tenderness. EYES: Pupils equal round and reactive. Extraocular motions intact. No scleral icterus. No injection or drainage. ENT: Nose without bleeding, purulent drainage or septal hematoma. Throat without erythema, tonsillar hypertrophy or exudate. Uvula midline. Airway patent. NECK: Trachea midline. No JVD or lymphadenopathy. Supple, nontender, no meningeal signs. CARDIOVASCULAR: Regular rate and rhythm without murmurs, gallops, or rubs. RESPIRATORY: Clear to auscultation. Breath sounds equal bilaterally. No wheezes , rales, or rhonchi. GASTROINTESTINAL: Abdomen soft, non-tender, nondistended. No hepato-splenomegaly , or palpable masses. No guarding. MUSCULOSKELETAL: Extremities without clubbing, cyanosis, or edema. No joint tenderness, effusion, or edema noted. No calf tenderness. NEUROLOGICAL: Awake and alert. Cranial nerves II through XII intact. Motor and sensory grossly within normal limits. Normal speech. Laboratory Laboratory Tests Test 01/17/17 18:50 White Blood Count 20.6 Red Blood Count 4.36 Hemoglobin 13.4 Hematocrit 40.8 Mean Corpuscular Volume 93.6 Mean Corpuscular Hemoglobin 30.7 Mean Corpuscular Hemoglobin Concent 32.8 Red Cell Distribution Width 16.1 Platelet Count 109 Mean Platelet Volume 8.4 Neutrophils (%) (Auto) 94.3 Lymphocytes (%) (Auto) 1.3 Monocytes (%) (Auto) 4.0 Eosinophils (%) (Auto) 0.0 Basophils (%) (Auto) 0.4 Neutrophils # (Auto) 19.4 Lymphocytes # (Auto) 0.3 Monocytes # (Auto) 0.8 Eosinophils # (Auto) 0.0 Basophils # (Auto) 0.1 CBC Comment DIFF FINAL Differential Comment Prothrombin Time 18.1 Prothromb Time International Ratio 1.6 Activated Partial Thromboplast Time 37.5 Blood Urea Nitrogen 24 Creatinine 2.46 Random Glucose 175 Calcium Level 9.1 Magnesium Level 1.8 Sodium Level 136 Potassium Level 4.8 Chloride Level 102 Carbon Dioxide Level 20.7 Anion Gap 13 Estimat Glomerular Filtration Rate 26 Lactic Acid Level 7.5 Total Creatine Kinase 265 Creatine Kinase MB 1.9 Troponin I 0.22 Date/Time Source Procedure Growth Status 01/17/17 19:30 Blood Peripheral Aerobic Blood Culture Pending Received 01/17/17 19:30 Blood Peripheral Anaerobic Blood Culture Pending Received Result Diagram: 01/17/17184901/17/171849 Caprini VTE Risk Assessment Caprini VTE Risk Assessment: Mod/High Risk (score >= 2) Caprini Risk Assessment Model Point Value = 1 Point Value = 2 Point Value = 3 Point Value = 5 Age 41-60 Minor surgery BMI > 25 kg/m2 Swollen legs Varicose veins or History of unexplained or recurrent spontaneous Oral contraceptives or hormone replacement Sepsis (< 1 month) Serious lung disease, including pneumonia (< 1 month) Abnormal pulmonary function Acute myocardial infarction Congestive heart failure (< 1 month) History of inflammatory bowel disease Medical patient at bed rest Age 61-74 Arthroscopic surgery Major open surgery (> 45 min) Laparoscopic surgery (> 45 min) Malignancy Confined to bed (> 72 hours) Immobilizing plaster cast Central venous access Age >= 75 History of VTE Family history of VTE Factor V Leiden Prothrombin [id number] Lupus anticoagulant Anticardiolipin antibodies Elevated serum homocysteine Heparin-induced thrombocytopenia Other congenital or acquired thrombophilia Stroke (< 1 month) Elective arthroplasty Hip, pelvis, or leg fracture Acute spinal cord injury (< 1 month) Prophylaxis Regimen Total Risk Factor Score Risk Level Prophylaxis Regimen 0-1 Low Early ambulation 2 Moderate Order ONE of the following: *Sequential Compression Device (SCD) *Heparin 5000 units SQ BID 3-4 Higher Order ONE of the following medications: *Heparin 5000 units SQ TID *Enoxaparin/Lovenox 40 mg SQ daily (WT < 150 kg, CrCl > 30 mL/min) *Enoxaparin/Lovenox 30 mg SQ daily (WT < 150 kg, CrCl > 10-29 mL/min) *Enoxaparin/Lovenox 30 mg SQ BID (WT < 150 kg, CrCl > 30 mL/min) AND/OR *Sequential Compression Device (SCD) 5 or more Highest Order ONE of the following medications: *Heparin 5000 units SQ TID (Preferred with Epidurals) *Enoxaparin/Lovenox 40 mg SQ daily (WT < 150 kg, CrCl > 30 mL/min) *Enoxaparin/Lovenox 30 mg SQ daily (WT < 150 kg, CrCl > 10-29 mL/min) *Enoxaparin/Lovenox 30 mg SQ BID (WT < 150 kg, CrCl > 30 mL/min) AND *Sequential Compression Device (SCD) Assessment and Plan Assessment and Plan 76-year-old male presents to the emergency department after his defibrillator went off 13 times for ventricular fibrillation. 1. Ventricular fibrillation Pacemaker interrogated, 13 defibrillations for V. fib Cardiology consulted, appreciate assistance Electrolytes within normal limits A. fib continues, will start amiodarone drip 2. CAD/CHF/A. fib Continue anticoagulation with Xarelto Continue home medications Patient's supervisor sawmill is Dr. Echavarria 3. Insulin-dependent diabetes mellitus SSI FEN Heart healthy diet Electrolytes: Monitor and replete when necessary No IV fluids at this time Anticoagulation with Xarelto Physician Certification 2 Midnight Certification Type: Admission for Inpatient Services Order for Inpatient Services The services are ordered in accordance with Medicare regulations or non- Medicare payer requirements, as applicable. In the case of services not specified as inpatient-only, they are appropriately provided as inpatient services in accordance with the 2-midnight benchmark. Estimated LOS (days): 2 2 days is the estimated time the patient will need to remain in the hospital, assuming treatment plan goals are met and no additional complications. Post-Hospital Plan: Not yet determined Regi Borrego MD Jan 17, 2017 21:53
[2017-01-17] MEDS ORDERED: SODIUM CHLOR 0.9% 1000 ML INJ 1,000 ML IV SCH (22:00)
[2017-01-17] MEDS: HEPARIN-D5W 25,000 U/250 ML 250 ML IV PRN (23:35)
[2017-01-17 23:50] VITALS: BP 108/58; PULSE 60; RESP 19; O2SAT 100
[2017-01-18] VITALS (29 sets, daily range): BP systolic 86–153; BP diastolic 42–77; PULSE 56–76; RESP 18–20; TEMP 97.5–99.7; O2SAT 96–100
[2017-01-18 00:21] LABS: CKMB 4.1 NG/ML (0.5-3.6)
[2017-01-18 01:00] LABS: BACTERIA, URINE MANY /hpf; BLOOD, URINE LARGE (NEG); GLUCOSE,URINE NEG (NEG); KETONE, URINE NEG (NEG); NITRITE,URINE NEG (NEG)
[2017-01-18] MEDS ORDERED: SODIUM CHLORID 0.9% 500 ML INJ 500 ML IV PRN (01:00)
[2017-01-18 01:01] LABS: URINE COLOR RED (YELLW/STRAW)
[2017-01-18 01:02] LABS: COMMENT (UR) CULTURE INDICATED; CULTURE IF INDICATED CULTURE INDICATED
[2017-01-18 01:16] LABS: LACTIC ACID GHOST NOT REPORTABLE
[2017-01-18] MEDS ORDERED: CEFEPIME INJ 2,000 MG in SODIUM CHLORIDE 0.9% INJ 100 ML IV SCH (02:00)
[2017-01-18 02:01] LABS: HEMATOCRIT 37.9 % (39.0-51.0); MEAN CELL VOLUME 92.9 FL (80.0-100.0); MEAN CORPUSCULAR HEMOGLOBIN 30.9 PG (27.0-34.0); MEAN CORPUSCULAR HGB CONC 33.3 % (32.0-36.0); PLATELET COUNT 84 TH/MM3 (150-450); RED BLOOD COUNT 4.07 MIL/MM3 (4.50-5.90); RED CELL DISTRIBUTION WIDTH 16.4 % (11.6-17.2); WHITE BLOOD COUNT 23.4 TH/MM3 (4.0-11.0)
[2017-01-18 02:04] LABS: REVIEW FLAG FINAL
[2017-01-18 02:28] LABS: APTT (PATIENT) 74.2 SEC (24.3-30.1); INTERNATIONAL NORMALIZED RATIO 1.7 RATIO; PROTHROMBIN TIME - PATIENT 19.4 SEC (9.8-11.6)
[2017-01-18] MEDS ORDERED: HEPARIN SODIUM - IV 10,000 UNITS/10 ML VIAL IV PUSH PRN (05:15)
[2017-01-18 07:14] LABS: AUTOMATED NEUTROPHIL # 17.3 TH/MM3 (1.8-7.7); BASOPHIL % 0.1 % (0.0-2.0); HEMATOCRIT 37.4 % (39.0-51.0); LYMPH % 2.3 % (9.0-44.0); LYMPHOCYTE # 0.4 TH/MM3 (1.0-4.8); MEAN CELL VOLUME 92.1 FL (80.0-100.0); MEAN CORPUSCULAR HEMOGLOBIN 30.7 PG (27.0-34.0); MEAN CORPUSCULAR HGB CONC 33.4 % (32.0-36.0); MONO % 5.4 % (0.0-8.0); NEUT % 92.2 % (16.0-70.0); PLATELET COUNT 77 TH/MM3 (150-450); RED BLOOD COUNT 4.06 MIL/MM3 (4.50-5.90); RED CELL DISTRIBUTION WIDTH 16.4 % (11.6-17.2); WHITE BLOOD COUNT 18.8 TH/MM3 (4.0-11.0)
[2017-01-18 07:21] LABS: HEMO FLAGS AUTO DIFF
[2017-01-18 07:41] LABS: BICARBONATE 26.7 MEQ/L (21.0-32.0); POTASSIUM 4.5 MEQ/L (3.5-5.1)
[2017-01-18 08:26] LABS: BANDS 28 % (0-6); CKMB 7.7 NG/ML (0.5-3.6); METAMYELOCYTES 1 % (0-1); NEUTROPHIL # MANUAL DIFF 17.3 TH/MM3 (1.8-7.7); POLYS (SEG NEUTROPHILS) 63 % (16-70); WBC DIFF SAMPLE 100
[2017-01-18 08:27] LABS: OVALOCYTES 1+ (NORMAL); PLATELET ESTIMATE SMEAR LOW (NORMAL); PLATELET MORPHOLOGY NORMAL (NORMAL); SCAN/DIFF FINAL DIFF MANUAL
--- NOTE | 2017-01-18 08:51 | HHI.PR ---
Subjective Remarks Patient seen and examined this morning. Temperature 98.4, pulse 60, blood pressure 99/61, pulse ox 98 on nasal cannula 5 L. At the time my evaluation he was denying any chest pain, and felt that his shortness of breath improved. He admitted to some urination with bloody tinge. He came in last night due to his AICD going off 13 times and shocking him due to ventricular fibrillation. He says since being in the hospital he has not had any more feelings of being shocked, nor is he feeling any chest pain or tightness. Spoke with the technical sales specialist and the anticipated plan is for patient to go to the [facility] on Friday. Objective Vitals Vital Signs Date Time Temp Pulse Resp B/P (MAP) Pulse Ox O2 Delivery O2 Flow Rate FiO2 01/18/17 05:00 99/61 (74) 01/18/17 04:00 Nasal Cannula 5.00 01/18/17 04:00 60 01/18/17 04:00 98.4 60 18 91/45 (60) 98 01/18/17 03:00 61 01/18/17 02:00 60 01/18/17 01:30 90/48 (62) 01/18/17 01:00 62 01/18/17 00:15 98.7 60 20 86/42 (57) 99 01/18/17 00:15 60 01/18/17 00:15 Nasal Cannula 5.00 01/17/17 23:56 01/17/17 23:50 60 19 108/58 (75) 100 Nasal Cannula 6.00 01/17/17 21:15 60 28 124/55 (78) 98 Nasal Cannula 6.00 01/17/17 18:47 128/65 (86) 117/58 (77) 01/17/17 18:45 Non-Rebreather 100 01/17/17 18:45 100 01/17/17 18:41 100 Non-Rebreather 100 01/17/17 18:36 98.8 116 20 128/65 (86) 99 I/O 01/17/17 01/17/17 01/17/17 01/18/17 01/18/17 01/18/17 07:00 15:00 23:00 07:00 15:00 23:00 Intake Total 600 ml 1100 ml 585 ml Output Total 600 ml Balance 600 ml 500 ml 585 ml Intake Oral 240 ml IV Total 600 ml 860 ml 585 ml Output Urine Total 600 ml # Bowel Movements 0 Result Diagram: 01/18/1762201/18/17622 Imaging Last Impressions Chest X-Ray 01/17/171838 Signed Impressions: Service Date/Time: Tuesday, January 17, 2017 19:11 - CONCLUSION: Stable cardiomegaly. Left subclavian bipolar pacer Franco Shore MD Objective Remarks GEN: Well-developed, well-nourished patient. No acute distress. Nasal cannula in place sitting up in bed appears comfortable CV: Regular rate and rhythm without obvious murmurs LUNGS: Clear to auscultation bilaterally. Normal respiratory effort. No wheezes , rales, rhonchi. GI: Soft, nontender, nondistended. No palpable masses. Bowel sounds WNL. EXT: No edema. NEURO/PSYCH: Afocal. Awake, alert, and oriented x3. Appropriate insight and judgment. Medications and IVs Current Medications Medications (Trade) Dose Ordered Sig/Jaz Route Start Time Stop Time Status Last Admin (Lipitor) 80 mg HS PO 01/18/17 21:00 (Cardizem Cd) 180 mg DAILY PO 01/18/17 09:00 (Tikosyn) 500 mcg BID PO 01/18/17 09:00 (Lasix) 40 mg DAILY PO 01/18/17 09:00 (Keppra) 1,000 mg BID PO 01/18/17 09:00 (Nitrostat Sl) 0.4 mg Q15M PRN SL 01/17/17 21:45 (KCl) 20 meq Q12HR PO 01/18/17 09:00 (Toprol Xl) 200 mg DAILY PO 01/18/17 09:00 (Protonix) 20 mg DAILY PO 01/18/17 09:00 (NS Flush) 2 ml UNSCH PRN IV FLUSH 01/17/17 21:45 (NS Flush) 2 ml BID IV FLUSH 01/18/17 09:00 (Tylenol) 650 mg Q4H PRN PO 01/17/17 21:45 (Zofran Inj) 4 mg Q6H PRN IVP 01/17/17 21:45 (Narcan Inj) 0.4 mg UNSCH PRN IV PUSH 01/17/17 21:45 (Ingrid-Colace) 1 tab BID PO 01/18/17 09:00 (Milk Of Magnesia Liq) 30 ml Q12H PRN PO 01/17/17 21:45 (Senokot) 17.2 mg Q12H PRN PO 01/17/17 21:45 (Dulcolax Supp) 10 mg DAILY PRN RECTAL 01/17/17 21:45 (Lactulose Liq) 30 ml DAILY PRN PO 01/17/17 21:45 Cefepime HCl 2000 mg/Sodium Chloride 100 ml @ 200 mls/hr Q8H IV 01/18/17 02:00 01/18/17 02:00 Sodium Chloride 1,000 ml @ 65 mls/hr [id number] IV 01/17/17 22:00 01/17/17 22:12 (Heparin Inj) 5,000 units UNSCH PRN IV PUSH 01/18/17 05:15 (Heparin Inj) 2,500 units UNSCH PRN IV PUSH 01/18/17 05:15 Heparin Sodium/ Dextrose 250 ml @ 10 mls/hr TITRATE PRN IV 01/17/17 23:15 01/17/17 23:35 Sodium Chloride 500 ml @ 500 mls/hr BOLUS PRN IV 01/18/17 01:00 01/18/17 01:40 A/P Problem List: (1) Urinary tract infection ICD Code: N39.0 - Urinary tract infection, site not specified (2) Ventricular fibrillation ICD Code: I49.01 - Ventricular fibrillation; Z95.810 - Presence of automatic ( implantable) cardiac defibrillator Status: Acute (3) DM2 (diabetes mellitus, type 2) ICD Code: E11.9 - Type 2 diabetes mellitus without complications Status: Chronic (4) CAD (coronary artery disease) ICD Code: I25.10 - CAD (coronary artery disease) Status: Chronic (5) Chronic systolic congestive heart failure ICD Code: I50.22 - Chronic systolic congestive heart failure Status: Chronic (6) elevated troponin I rule out non-ST elevation, acute coronary syndrome Status: Acute Assessment and Plan 76-year-old male presents to the emergency department after his defibrillator went off 13 times for ventricular fibrillation. 1. Ventricular fibrillation Pacemaker interrogated, 13 defibrillations for V. fib Cardiology consulted, appreciate assistance, anticipating going to the catheter lab on Friday Elevated troponins at 0.69, 0.94 Elevated CK-MB of 4.1, 7.7 During the patient is not complaining of any chest pain or pressure Heparin drip per protocol 2. CAD/CHF/A. fib Holding Xarelto Continue diltiazem 100 mg by mouth daily Continue Dofetilide 500mcg by mouth twice a day Nitroglycerin as needed Patient's technical sales specialist is Dr. Echavarria, she is being covered by another technical sales specialist in the group over the weekend 3. Insulin-dependent diabetes mellitus SSI Blood glucose checks per protocol FEN Heart healthy diet Electrolytes: Monitor and replete when necessary No IV fluids at this time Anticoagulation with heparin drip and SCDs Discharge Planning Pending results of catheterization planned for Friday Reji Frank MD, R3 Jan 18, 2017 08:51
[2017-01-18] MEDS ORDERED: DEXTROSE 50% IN WATER 50 ML VIAL(D50) IV PUSH PRN (09:00)
[2017-01-18] MEDS ORDERED: DOFETILIDE 250 MCG CAP PO SCH (09:00)
[2017-01-18] MEDS ORDERED: GLUCAGON 1 MG/ML VIAL OTHER PRN (09:00)
[2017-01-18] MEDS: PANTOPRAZOLE SOD 20 MG DELAYED RELEASE TAB PO SCH (09:42)
[2017-01-18] MEDS: FUROSEMIDE 40 MG TAB PO SCH (09:42)
[2017-01-18] MEDS: POTASSIUM CHLORIDE 20 MEQ CONTROLLED RELEASE TAB PO SCH ×2 (09:42→21:04)
[2017-01-18] MEDS: METOPROLOL SUCCINATE 50 MG EXTENDED RELEASE TAB PO SCH (09:43)
[2017-01-18] MEDS: levETIRAcetam 500 MG TAB PO SCH ×2 (09:43→21:04)
[2017-01-18] MEDS: DILTIAZEM-CD 180 MG CAP ER PO SCH (09:43)
[2017-01-18] MEDS: DOCUSATE SODIUM 50 MG/SENNA 8.6 MG TAB PO SCH ×2 (09:44→21:00)
[2017-01-18] MEDS: SODIUM CHLORIDE 0.9% FLUSH 10 ML FLUSH IV FLUSH SCH ×2 (09:51→21:03)
[2017-01-18 10:59] LABS: APTT (PATIENT) 59.7 SEC (24.3-30.1)
[2017-01-18] MEDS: INSULIN ASPART SUPPLEMENTAL SCALE SQ SCH ×3 (12:00→21:06)
[2017-01-18] MEDS: CEFEPIME INJ 2,000 MG in SODIUM CHLORIDE 0.9% INJ 100 ML IV SCH (15:37)
[2017-01-18] MEDS: MAGNESIUM SULFATE 1 GM PREMIX 100 ML IV SCH ×2 (18:28→19:29)
--- NOTE | 2017-01-18 19:04 | MB ---
cc: SID FROST DO DATE OF CONSULTATION 01/18/17 REASON FOR CONSULTATION AICD firing. HISTORY OF PRESENT ILLNESS Triston Bolton is a pleasant 76-year-old male who presented to [facility] on January 17, 2017 after his AICD went off 13 times. The patient states that he was getting out of bed and was unable to stand and so he slid out of bed onto the floor. As he was attempting to get off the floor, he felt his AICD go off and, after that, it went off a few more times. He denies chest pain, shortness of breath or palpitations recently. He has noted that he has been febrile and was found to have a leukocytosis of 20. In seeing him, he is currently stable without chest pain, shortness of breath or palpitations. PAST MEDICAL HISTORY 1. Atrial fibrillation status post multiple ablations 2. History of coronary artery disease with unknown coronary anatomy. 3. Congestive heart failure. 4. Insulin-dependent diabetes mellitus. PAST SURGICAL HISTORY 1. Brain abscess removal remotely 2. Status post multiple stents placed around 20 years ago 3. Cholecystectomy. 4. Multiple ablations for atrial fibrillation as well as multiple electrical cardioversions. ALLERGIES NO KNOWN DRUG ALLERGIES. MEDICATIONS 1. Xarelto 20 mg every night 2. Tikosyn 500 mg b.i.d. 3. Lipitor 80 mg every night 4. Nitro sublingual as needed 5. Toprol XL 200 mg daily 6. Cardizem CD 180 mg daily 7. Keppra 1000 mg b.i.d. 8. Potassium 29 mEq every 12 hours. 9. Lasix 40 mg daily 10. Omeprazole 20 mg daily 11. Insulin as directed. 12. Glipizide 5 mg daily. FAMILY HISTORY Denies sudden cardiac within the family. SOCIAL HISTORY Occasionally drinks alcohol. Previously smoked but quit 20 years ago. Denies drug abuse. REVIEW OF SYSTEMS 14-systems were reviewed including osteopathic. Pertinent positives and negatives above otherwise negative. PHYSICAL EXAMINATION VITAL SIGNS: Temperature 97.5, heart rate 60, blood pressure 142/77, respirations 20, pulse ox 96% on 5 liters. GENERAL: The patient appears well in no acute distress, alert awake and oriented x3. HEENT: Extraocular muscles intact. Mucous membranes moist. NECK: Supple. No JVD at 45 degrees. No carotid bruits heard bilaterally. Carotid upstroke is brisk in nature. HEART: Regular rate and rhythm. Positive first and second heart sounds with a 1/6 holosystolic murmur noted at the apex. LUNGS: Relatively clear to auscultation bilaterally. No wheezes, rales or rhonchi. ABDOMEN: Soft, nontender, nondistended, no organomegaly noted. EXTREMITIES: No clubbing, cyanosis or edema. SKIN: Warm, dry and intact. NEUROLOGIC: No focal deficits. OSTEOPATHIC: No kyphoscoliosis, lordosis or paraspinal tender points. LABORATORY FINDINGS Hemoglobin 12.5, hematocrit 37.4, platelets 77. Potassium 4.5, BUN 25, creatinine 1.64, troponin 0.94, lactic acid 7.5 decreasing to 2.0. CARDIOLOGY STUDIES Electrocardiogram (January 18, 2017 at 0715) atrial paced, left axis deviation, right bundle branch block with left anterior fascicular block, age undetermined inferior infarct, possible age indeterminate lateral infarct, prolonged QTC. IMPRESSION 1. Multiple AICD firings possibly due to ventricular tachycardia versus ventricular fibrillation 2. History of coronary artery disease. 3. Elevated troponin. 4. Lactic acidosis 5. UTI. 6. History of atrial fibrillation 7. History of congestive heart failure. 8. Prolonged QTC RECOMMENDATIONS 1. Mr. Bolton presented with multiple AICD firings and a mildly elevated troponin. 2. This may be due to his prolonged QTC versus ischemic nature. In investigating his previous EKGs, his QTC has always been right around 470-490 and so this does not appear to be much different. 3. AICD firing from ventricular arrhythmia as well as his elevated troponin. We will plan on taking him to the cardiac catheterization lab on Friday. 4. Due to his ventricular ectopy, I will plan on holding his dofetilide for now. 5. We will plan on giving Mr. Bolton magnesium as it is mildly low. 6. Further recommendations will be made based on the hospital course. Thank you for allowing me to see Triston Bolton. If there are any questions, please do not hesitate to call. Sid Frost DO VGP/ /5:41 PM /6:50 PM
[2017-01-18 19:58] LABS: APTT (PATIENT) 40.3 SEC (24.3-30.1)
[2017-01-18] MEDS ORDERED: RIVAROXABAN 20 MG TAB PO SCH (21:00)
[2017-01-18] MEDS: ATORVASTATIN 80 MG TAB PO SCH (21:04)
[2017-01-19] VITALS (29 sets, daily range): BP systolic 126–146; BP diastolic 65–73; PULSE 60–81; RESP 18–20; TEMP 97.2–98.4; O2SAT 95–99
[2017-01-19] MEDS: CEFEPIME INJ 2,000 MG in SODIUM CHLORIDE 0.9% INJ 100 ML IV SCH ×2 (03:23→13:47)
[2017-01-19 07:06] LABS: HEMATOCRIT 36.4 % (39.0-51.0); MEAN CELL VOLUME 92.7 FL (80.0-100.0); MEAN CORPUSCULAR HEMOGLOBIN 30.8 PG (27.0-34.0); MEAN CORPUSCULAR HGB CONC 33.2 % (32.0-36.0); PLATELET COUNT 67 TH/MM3 (150-450); RED BLOOD COUNT 3.93 MIL/MM3 (4.50-5.90); RED CELL DISTRIBUTION WIDTH 16.6 % (11.6-17.2); WHITE BLOOD COUNT 12.2 TH/MM3 (4.0-11.0)
[2017-01-19 07:21] LABS: BICARBONATE 25.5 MEQ/L (21.0-32.0); POTASSIUM 4.3 MEQ/L (3.5-5.1)
[2017-01-19 07:28] LABS: REVIEW FLAG FINAL
[2017-01-19] MEDS: INSULIN ASPART SUPPLEMENTAL SCALE SQ SCH ×4 (08:00→20:12)
[2017-01-19] MEDS: PANTOPRAZOLE SOD 20 MG DELAYED RELEASE TAB PO SCH (08:19)
[2017-01-19] MEDS: FUROSEMIDE 40 MG TAB PO SCH (08:19)
[2017-01-19] MEDS: DILTIAZEM-CD 180 MG CAP ER PO SCH (08:19)
[2017-01-19] MEDS: levETIRAcetam 500 MG TAB PO SCH ×2 (08:20→20:09)
[2017-01-19] MEDS: SODIUM CHLORIDE 0.9% FLUSH 10 ML FLUSH IV FLUSH SCH ×2 (08:20→20:09)
[2017-01-19] MEDS: DOCUSATE SODIUM 50 MG/SENNA 8.6 MG TAB PO SCH ×2 (08:20→20:09)
[2017-01-19] MEDS: POTASSIUM CHLORIDE 20 MEQ CONTROLLED RELEASE TAB PO SCH ×2 (08:20→20:09)
[2017-01-19] MEDS: METOPROLOL SUCCINATE 50 MG EXTENDED RELEASE TAB PO SCH (08:21)
--- NOTE | 2017-01-19 08:26 | HHI.PR ---
Subjective Remarks Patient seen and examined this morning. Temp 98.9 pulse 60, respiratory rate 18 , pressure 131/73, pulse ox 95 on 3 L nasal cannula. This morning he denies any chest pain or shortness of breath. He does report some generalized weakness. Agrees to being seen by physical therapy. He understands the plan of care is for him to go to the cardiac catheter lab on Friday01/20/17 for cardiac catheterization. Objective Vitals Vital Signs Date Time Temp Pulse Resp B/P (MAP) Pulse Ox O2 Delivery O2 Flow Rate FiO2 01/19/17 06:00 60 01/19/17 05:00 60 01/19/17 04:00 60 01/19/17 03:15 63 18 131/73 (92) 95 01/19/17 03:15 95 Nasal Cannula 5.00 01/19/17 03:00 60 01/19/17 02:00 60 01/19/17 01:00 60 01/19/17 00:00 60 01/18/17 23:20 98.9 68 18 151/77 (101) 98 01/18/17 23:20 98 Nasal Cannula 5.00 01/18/17 23:00 66 01/18/17 22:00 76 01/18/17 21:00 66 01/18/17 20:00 60 01/18/17 19:15 99.7 61 18 153/77 (102) 99 01/18/17 19:15 99 Nasal Cannula 5.00 01/18/17 19:00 64 01/18/17 18:00 60 01/18/17 17:00 60 01/18/17 16:00 60 01/18/17 15:00 60 01/18/17 15:00 99.7 60 20 150/77 (101) 99 01/18/17 15:00 99 Nasal Cannula 5.00 01/18/17 14:00 60 01/18/17 13:00 62 01/18/17 12:00 60 01/18/17 11:52 96 Nasal Cannula 5.00 01/18/17 11:52 97.5 56 20 142/77 (98) 96 01/18/17 11:00 60 01/18/17 10:19 99 Nasal Cannula 4.00 01/18/17 10:00 60 01/18/17 09:00 66 I/O 01/18/17 01/18/17 01/18/17 01/19/17 01/19/17 01/19/17 07:00 15:00 23:00 07:00 15:00 23:00 Intake Total 1100 ml 585 ml 1645 ml 400 ml Output Total 600 ml 1050 ml 800 ml Balance 500 ml 585 ml 595 ml -400 ml Intake Oral 240 ml 720 ml 400 ml IV Total 860 ml 585 ml 925 ml Output Urine Total 600 ml 1050 ml 800 ml # Bowel Movements 0 1 0 Result Diagram: 01/19/17 0647 01/19/17 0647 Imaging Last Impressions Chest X-Ray 01/17/17 1839 Signed Impressions: Service Date/Time: Tuesday, January 17, 2017 19:11 - CONCLUSION: Stable cardiomegaly. Left subclavian bipolar pacer Franco Shore MD Objective Remarks GEN: Well-developed, well-nourished patient. No acute distress. Nasal cannula in place sitting up in bed appears comfortable CV: Regular rate and rhythm without obvious murmurs LUNGS: Clear to auscultation bilaterally. Normal respiratory effort. No wheezes , rales, rhonchi. GI: Soft, nontender, nondistended. No palpable masses. Bowel sounds WNL. EXT: No edema. NEURO/PSYCH: Afocal. Awake, alert, and oriented x3. Appropriate insight and judgment. Medications and IVs Current Medications Medications (Trade) Dose Ordered Sig/Jaz Route Start Time Stop Time Status Last Admin (Lipitor) 80 mg HS PO 01/18/17 21:00 01/18/17 21:04 (Cardizem Cd) 180 mg DAILY PO 01/18/17 09:00 01/19/17 08:19 (Tikosyn) 500 mcg BID PO 01/18/17 09:00 Future Hold (Lasix) 40 mg DAILY PO 01/18/17 09:00 01/19/17 08:19 (Keppra) 1,000 mg BID PO 01/18/17 09:00 01/19/17 08:20 (Nitrostat Sl) 0.4 mg Q15M PRN SL 01/17/17 21:45 (KCl) 20 meq Q12HR PO 01/18/17 09:00 01/19/17 08:20 (Toprol Xl) 200 mg DAILY PO 01/18/17 09:00 01/18/17 09:43 (Protonix) 20 mg DAILY PO 01/18/17 09:00 01/19/17 08:19 (NS Flush) 2 ml UNSCH PRN IV FLUSH 01/17/17 21:45 (NS Flush) 2 ml BID IV FLUSH 01/18/17 09:00 01/19/17 08:20 (Tylenol) 650 mg Q4H PRN PO 01/17/17 21:45 (Zofran Inj) 4 mg Q6H PRN IVP 01/17/17 21:45 (Narcan Inj) 0.4 mg UNSCH PRN IV PUSH 01/17/17 21:45 (Ingrid-Colace) 1 tab BID PO 01/18/17 09:00 01/19/17 08:20 (Milk Of Magnesia Liq) 30 ml Q12H PRN PO 01/17/17 21:45 (Senokot) 17.2 mg Q12H PRN PO 01/17/17 21:45 (Dulcolax Supp) 10 mg DAILY PRN RECTAL 01/17/17 21:45 (Lactulose Liq) 30 ml DAILY PRN PO 01/17/17 21:45 Sodium Chloride 1,000 ml @ 65 mls/hr [id number] IV 01/17/17 22:00 Future Hold 01/17/17 22:12 (Heparin Inj) 5,000 units UNSCH PRN IV PUSH 01/18/17 05:15 (Heparin Inj) 2,500 units UNSCH PRN IV PUSH 01/18/17 05:15 Heparin Sodium/ Dextrose 250 ml @ 10 mls/hr TITRATE PRN IV 01/17/17 23:15 01/17/17 23:35 Sodium Chloride 500 ml @ 500 mls/hr BOLUS PRN IV 01/18/17 01:00 01/18/17 01:40 (D50w (Vial) Inj) 50 ml UNSCH PRN IV PUSH 01/18/17 09:00 (Glucagon Inj) 1 mg UNSCH PRN OTHER 01/18/17 09:00 (NovoLOG SUPPLEMENTAL SCALE) 1 ACHS SLIDING SCALE SQ 01/18/17 12:00 01/18/17 21:06 Cefepime HCl 2000 mg/Sodium Chloride 100 ml @ 200 mls/hr Q12H IV 01/18/17 14:00 01/19/17 03:23 A/P Problem List: (1) Urinary tract infection ICD Code: N39.0 - Urinary tract infection, site not specified (2) Ventricular fibrillation ICD Code: I49.01 - Ventricular fibrillation; Z95.810 - Presence of automatic ( implantable) cardiac defibrillator Status: Acute (3) DM2 (diabetes mellitus, type 2) ICD Code: E11.9 - Type 2 diabetes mellitus without complications Status: Chronic (4) CAD (coronary artery disease) ICD Code: I25.10 - CAD (coronary artery disease) Status: Chronic (5) Chronic systolic congestive heart failure ICD Code: I50.22 - Chronic systolic congestive heart failure Status: Chronic (6) elevated troponin I rule out non-ST elevation, acute coronary syndrome Status: Acute Assessment and Plan 76-year-old male presents to the emergency department after his defibrillator went off 13 times for ventricular fibrillation. 1. Ventricular fibrillation Pacemaker interrogated, 13 defibrillations for V. fib Cardiology consulted, appreciate assistance, anticipating going to the catheter lab on Friday Elevated troponins at 0.69, 0.94 Elevated CK-MB of 4.1, 7.7 During the interview patient is not complaining of any chest pain or pressure Heparin drip per protocol 2. CAD/CHF/A. fib Holding Xarelto Continue diltiazem 100 mg by mouth daily Holding Dofetilide 500mcg by mouth twice a day Nitroglycerin as needed Patient's deputy prosecuting attorney is Dr. Echavarria, she is being covered by another deputy prosecuting attorney in the group over the weekend 3. Insulin-dependent diabetes mellitus SSI Blood glucose checks per protocol FEN Heart healthy diet Electrolytes: Monitor and replete when necessary No IV fluids at this time Anticoagulation with heparin drip and SCDs Discharge Planning Pending results of catheterization planned for Friday Reji Frank MD, R3 Jan 19, 2017 08:26
--- NOTE | 2017-01-19 11:04 | EKG ---
Date Performed: 01/18/2017 Time Performed: 07:15:32 PTAGE: 76 years EKG: A paced rhythm rhythm Left axis deviation RBBB with left anterior fascicular block Possible lateral infarct - age undetermined Abnormal ECG PREVIOUS TRACING : 01/17/2017 23.17 DOCTOR: Rizwan Cruz Interpretating Date/Time 01/19/2017 11:04:37
--- NOTE | 2017-01-19 11:04 | EKG ---
Date Performed: 01/17/2017 Time Performed: 18:43:55 PTAGE: 76 years EKG: ELECTRONIC ATRIAL PACEMAKER RIGHT BUNDLE BRANCH BLOCK LEFT ANTERIOR FASCICULAR BLOCK ABNORM AL ECG PREVIOUS TRACING : 10/05/2016 09.14 DOCTOR: Rizwan Cruz Interpretating Date/Time 01/19/2017 11:04:00
--- NOTE | 2017-01-19 11:04 | EKG ---
Date Performed: 01/17/2017 Time Performed: 23:17:33 PTAGE: 76 years EKG: ELECTRONIC ATRIAL PACEMAKER RIGHT BUNDLE BRANCH BLOCK LEFT ANTERIOR FASCICULAR BLOCK ABNORM AL ECG PREVIOUS TRACING : 01/17/2017 18.43 DOCTOR: Rizwan Cruz Interpretating Date/Time 01/19/2017 11:04:05
[2017-01-19 11:43] LABS: APTT (PATIENT) 34.8 SEC (24.3-30.1)
[2017-01-19] MEDS: HEPARIN SODIUM - IV 10,000 UNITS/10 ML VIAL IV PUSH PRN ×2 (12:02→18:41)
--- NOTE | 2017-01-19 15:10 | PD.CARD.PN ---
Subjective Subjective Remarks Feels weak, otherwise no chest pain/SOB Objective Medications Current Medications Medications (Trade) Dose Ordered Sig/Jaz Route Start Time Stop Time Status Last Admin (Lipitor) 80 mg HS PO 01/18/17 21:00 01/18/17 21:04 (Cardizem Cd) 180 mg DAILY PO 01/18/17 09:00 01/19/17 08:19 (Tikosyn) 500 mcg BID PO 01/18/17 09:00 Future Hold (Lasix) 40 mg DAILY PO 01/18/17 09:00 01/19/17 08:19 (Keppra) 1,000 mg BID PO 01/18/17 09:00 01/19/17 08:20 (Nitrostat Sl) 0.4 mg Q15M PRN SL 01/17/17 21:45 (KCl) 20 meq Q12HR PO 01/18/17 09:00 01/19/17 08:20 (Toprol Xl) 200 mg DAILY PO 01/18/17 09:00 01/18/17 09:43 (Protonix) 20 mg DAILY PO 01/18/17 09:00 01/19/17 08:19 (NS Flush) 2 ml UNSCH PRN IV FLUSH 01/17/17 21:45 (NS Flush) 2 ml BID IV FLUSH 01/18/17 09:00 01/19/17 08:20 (Tylenol) 650 mg Q4H PRN PO 01/17/17 21:45 (Zofran Inj) 4 mg Q6H PRN IVP 01/17/17 21:45 (Narcan Inj) 0.4 mg UNSCH PRN IV PUSH 01/17/17 21:45 (Ingrid-Colace) 1 tab BID PO 01/18/17 09:00 01/19/17 08:20 (Milk Of Magnesia Liq) 30 ml Q12H PRN PO 01/17/17 21:45 (Senokot) 17.2 mg Q12H PRN PO 01/17/17 21:45 (Dulcolax Supp) 10 mg DAILY PRN RECTAL 01/17/17 21:45 (Lactulose Liq) 30 ml DAILY PRN PO 01/17/17 21:45 Sodium Chloride 1,000 ml @ 65 mls/hr [id number] IV 01/17/17 22:00 Future Hold 01/17/17 22:12 (Heparin Inj) 5,000 units UNSCH PRN IV PUSH 01/18/17 05:15 (Heparin Inj) 2,500 units UNSCH PRN IV PUSH 01/18/17 05:15 01/19/17 12:02 Heparin Sodium/ Dextrose 250 ml @ 10 mls/hr TITRATE PRN IV 01/17/17 23:15 01/17/17 23:35 Sodium Chloride 500 ml @ 500 mls/hr BOLUS PRN IV 01/18/17 01:00 01/18/17 01:40 (D50w (Vial) Inj) 50 ml UNSCH PRN IV PUSH 01/18/17 09:00 (Glucagon Inj) 1 mg UNSCH PRN OTHER 01/18/17 09:00 (NovoLOG SUPPLEMENTAL SCALE) 1 ACHS SLIDING SCALE SQ 01/18/17 12:00 01/19/17 12:00 Cefepime HCl 2000 mg/Sodium Chloride 100 ml @ 200 mls/hr Q12H IV 01/18/17 14:00 01/19/17 13:47 Vital Signs / I&O Vital Signs Date Time Temp Pulse Resp B/P (MAP) Pulse Ox O2 Delivery O2 Flow Rate FiO2 01/19/17 14:31 98 Nasal Cannula 3.00 01/19/17 13:01 64 01/19/17 12:00 60 01/19/17 11:15 98 Nasal Cannula 4.00 01/19/17 11:15 97.2 64 20 127/72 (90) 99 01/19/17 11:00 64 01/19/17 10:00 62 01/19/17 09:00 60 01/19/17 08:15 98.2 66 20 146/65 (92) 99 01/19/17 08:15 99 Nasal Cannula 4.00 01/19/17 08:00 60 01/19/17 07:01 60 01/19/17 06:00 60 01/19/17 05:00 60 01/19/17 04:00 60 01/19/17 03:15 63 18 131/73 (92) 95 01/19/17 03:15 95 Nasal Cannula 5.00 01/19/17 03:00 60 01/19/17 02:00 60 01/19/17 01:00 60 01/19/17 00:00 60 01/18/17 23:20 98.9 68 18 151/77 (101) 98 01/18/17 23:20 98 Nasal Cannula 5.00 01/18/17 23:00 66 01/18/17 22:00 76 01/18/17 21:00 66 01/18/17 20:00 60 01/18/17 19:15 99.7 61 18 153/77 (102) 99 01/18/17 19:15 99 Nasal Cannula 5.00 01/18/17 19:00 64 01/18/17 18:00 60 01/18/17 17:00 60 01/18/17 16:00 60 I/O 01/18/17 01/18/17 01/18/17 01/19/17 01/19/17 01/19/17 07:00 15:00 23:00 07:00 15:00 23:00 Intake Total 1100 ml 585 ml 1645 ml 400 ml Output Total 600 ml 1050 ml 800 ml Balance 500 ml 585 ml 595 ml -400 ml Intake Oral 240 ml 720 ml 400 ml IV Total 860 ml 585 ml 925 ml Output Urine Total 600 ml 1050 ml 800 ml # Bowel Movements 0 1 0 Physical Exam GENERAL: NAD, AAOx3 SKIN: Warm and dry. HEAD: Atraumatic. Normocephalic. EYES: Pupils equal and round. No scleral icterus. No injection or drainage. ENT: No nasal bleeding or discharge. Mucous membranes pink and moist. NECK: Trachea midline. No JVD. CARDIOVASCULAR: Regular rate and rhythm. RESPIRATORY: No accessory muscle use. Clear to auscultation. Breath sounds equal bilaterally. GASTROINTESTINAL: Abdomen soft, non-tender, nondistended. Hepatic and splenic margins not palpable. MUSCULOSKELETAL: Extremities without clubbing, cyanosis, or edema. No obvious deformities. NEUROLOGICAL: Awake and alert. No obvious cranial nerve deficits. Motor grossly within normal limits. Five out of 5 muscle strength in the arms and legs. Normal speech. PSYCHIATRIC: Appropriate mood and affect; insight and judgment normal. Laboratory Laboratory Tests Test 01/18/17 18:46 01/19/17 06:47 01/19/17 10:32 Activated Partial Thromboplast Time 40.3 SEC 39.0 SEC 34.8 SEC White Blood Count 12.2 TH/MM3 Red Blood Count 3.93 MIL/MM3 Hemoglobin 12.1 GM/DL Hematocrit 36.4 % Mean Corpuscular Volume 92.7 FL Mean Corpuscular Hemoglobin 30.8 PG Mean Corpuscular Hemoglobin Concent 33.2 % Red Cell Distribution Width 16.6 % Platelet Count 67 TH/MM3 Mean Platelet Volume 8.5 FL Blood Urea Nitrogen 26 MG/DL Creatinine 1.27 MG/DL Random Glucose 146 MG/DL Calcium Level 8.4 MG/DL Sodium Level 135 MEQ/L Potassium Level 4.3 MEQ/L Chloride Level 101 MEQ/L Carbon Dioxide Level 25.5 MEQ/L Anion Gap 9 MEQ/L Estimat Glomerular Filtration Rate 55 ML/MIN Assessment and Plan Problem List: (1) Bacteremia ICD Codes: R78.81 - Bacteremia (2) AICD discharge ICD Codes: Z45.02 - Encounter for adjustment and management of automatic implantable cardiac defibrillator (3) Elevated troponin ICD Codes: R74.8 - Abnormal levels of other serum enzymes Status: Acute (4) Cardiomyopathy with implantable cardioverter-defibrillator ICD Codes: I42.9 - Cardiomyopathy, unspecified; Z95.810 - Presence of automatic (implantable) cardiac defibrillator Status: Acute (5) Urinary tract infection ICD Codes: N39.0 - Urinary tract infection, site not specified (6) DM2 (diabetes mellitus, type 2) ICD Codes: E11.9 - Type 2 diabetes mellitus without complications Status: Chronic Assessment and Plan 1) AICD firing for Vfib For now medical management Will need ischemic evaluation 2) UTI 3) Sepsis BC+ for gram negative rods Lactic acidosis 4) Thrombocytopenia Will plan to hold heparin Possible due to sepsis 5) Afib Will plan to hold Tikosyn for now due to ventricular arrhythmias 6) QTc mildly prolonged EGKs in the past have had a similar QTc length without problem 7) Cardiac catheterization on hold due to sepsis/bacteremia Sid Harrison DO Jan 19, 2017 15:10
[2017-01-19 18:32] LABS: APTT (PATIENT) 36.9 SEC (24.3-30.1)
[2017-01-19] MEDS: HEPARIN-D5W 25,000 U/250 ML 250 ML IV PRN (18:40)
[2017-01-19] MEDS ORDERED: diphenhydrAMINE HCL 50 MG/ML VIAL IV PUSH ONE (19:45)
[2017-01-19] MEDS: ATORVASTATIN 80 MG TAB PO SCH (20:09)
[2017-01-19] MEDS ORDERED: hydrOXYzine HCL 25 MG TAB PO PRN ×2 (20:45→23:00)
[2017-01-20] VITALS (25 sets, daily range): BP systolic 132–175; BP diastolic 63–97; PULSE 62–94; RESP 14–20; TEMP 97–98.4; O2SAT 95–98
[2017-01-20] MEDS: CEFEPIME INJ 2,000 MG in SODIUM CHLORIDE 0.9% INJ 100 ML IV SCH ×2 (02:28→14:00)
[2017-01-20 05:38] LABS: HEMATOCRIT 34.1 % (39.0-51.0); MEAN CELL VOLUME 91.3 FL (80.0-100.0); MEAN CORPUSCULAR HEMOGLOBIN 31.1 PG (27.0-34.0); MEAN CORPUSCULAR HGB CONC 34.1 % (32.0-36.0); PLATELET COUNT 72 TH/MM3 (150-450); RED BLOOD COUNT 3.73 MIL/MM3 (4.50-5.90); RED CELL DISTRIBUTION WIDTH 16.5 % (11.6-17.2)
[2017-01-20 05:40] LABS: REVIEW FLAG FINAL
[2017-01-20 05:42] LABS: APTT (PATIENT) 36.5 SEC (24.3-30.1)
[2017-01-20] MEDS: HEPARIN SODIUM - IV 10,000 UNITS/10 ML VIAL IV PUSH PRN ×2 (05:47→23:49)
[2017-01-20] MEDS: PANTOPRAZOLE SOD 20 MG DELAYED RELEASE TAB PO SCH (09:19)
[2017-01-20] MEDS: levETIRAcetam 500 MG TAB PO SCH ×2 (09:19→20:34)
[2017-01-20] MEDS: DOCUSATE SODIUM 50 MG/SENNA 8.6 MG TAB PO SCH ×2 (09:20→20:34)
[2017-01-20] MEDS: METOPROLOL SUCCINATE 50 MG EXTENDED RELEASE TAB PO SCH (09:20)
[2017-01-20] MEDS: FUROSEMIDE 40 MG TAB PO SCH (09:20)
[2017-01-20] MEDS: DILTIAZEM-CD 180 MG CAP ER PO SCH (09:20)
[2017-01-20] MEDS: INSULIN ASPART SUPPLEMENTAL SCALE SQ SCH ×4 (09:20→20:35)
[2017-01-20] MEDS: POTASSIUM CHLORIDE 20 MEQ CONTROLLED RELEASE TAB PO SCH ×2 (09:20→20:34)
[2017-01-20] MEDS: SODIUM CHLORIDE 0.9% FLUSH 10 ML FLUSH IV FLUSH SCH ×2 (09:23→20:23)
--- NOTE | 2017-01-20 11:09 | HHI.PR ---
Subjective Remarks Pt states that he feels lousy. Admits to chest soreness on the left, no worsening SOB, no nausea or vomiting. friends at bedside and he gives me permission to speak in front of them no chills Objective Vitals Vital Signs Date Time Temp Pulse Resp B/P (MAP) Pulse Ox O2 Delivery O2 Flow Rate FiO2 01/20/17 10:00 89 01/20/17 09:00 76 01/20/17 08:00 74 01/20/17 07:00 81 01/20/17 07:00 Nasal Cannula 4.00 100 01/20/17 07:00 98.4 81 18 175/97 (123) 98 01/20/17 06:00 74 01/20/17 05:00 77 01/20/17 04:00 75 01/20/17 04:00 Nasal Cannula 4.00 01/20/17 04:00 98.4 75 18 145/74 (97) 95 01/20/17 03:00 74 01/20/17 02:00 70 01/20/17 01:00 72 01/20/17 00:00 Nasal Cannula 4.00 01/20/17 00:00 98.1 71 18 132/63 (86) 96 01/20/17 00:00 71 01/19/17 23:00 72 01/19/17 22:00 72 01/19/17 21:00 77 01/19/17 20:00 Nasal Cannula 4.00 01/19/17 20:00 98.4 81 20 133/67 (89) 97 01/19/17 20:00 81 01/19/17 18:01 72 01/19/17 17:10 97 Nasal Cannula 4.00 01/19/17 17:01 60 01/19/17 16:00 62 01/19/17 15:15 97 Nasal Cannula 4.00 01/19/17 15:15 98.3 63 20 135/67 (89) 97 01/19/17 15:00 61 01/19/17 14:31 98 Nasal Cannula 3.00 01/19/17 14:00 64 01/19/17 13:01 64 01/19/17 12:00 60 01/19/17 11:15 98 Nasal Cannula 4.00 01/19/17 11:15 97.2 64 20 127/72 (90) 99 01/19/17 11:00 64 I/O 01/19/17 01/19/17 01/19/17 01/20/17 01/20/17 01/20/17 07:00 15:00 23:00 07:00 15:00 23:00 Intake Total 400 ml 840 ml 480 ml Output Total 800 ml 1100 ml 950 ml Balance -400 ml -260 ml -470 ml Intake Oral 400 ml 840 ml 480 ml Packed Cells 0 ml Output Urine Total 800 ml 1100 ml 950 ml # Voids 4 # Bowel Movements 0 0 0 Result Diagram: 01/20/17 0516 01/19/17 0647 Imaging Last Impressions Chest X-Ray 01/17/17 1839 Signed Impressions: Service Date/Time: Tuesday, January 17, 2017 19:11 - CONCLUSION: Stable cardiomegaly. Left subclavian bipolar pacer Franco Shore MD Objective Remarks GEN: Well-developed, well-nourished patient. laying in bed, Nasal cannula in place sitting up in bed appears comfortable CV: Regular rate and rhythm without obvious murmurs LUNGS: Clear to auscultation bilaterally. Normal respiratory effort. No wheezes GI: Soft, nontender, nondistended. No palpable masses. Bowel sounds WNL. EXT: No edema. NEURO/PSYCH: Afocal. Awake, alert, and oriented x3. Appropriate insight and judgment. A/P Problem List: (1) Urinary tract infection ICD Code: N39.0 - Urinary tract infection, site not specified (2) Ventricular fibrillation ICD Code: I49.01 - Ventricular fibrillation; Z95.810 - Presence of automatic ( implantable) cardiac defibrillator Status: Acute (3) DM2 (diabetes mellitus, type 2) ICD Code: E11.9 - Type 2 diabetes mellitus without complications Status: Chronic (4) CAD (coronary artery disease) ICD Code: I25.10 - CAD (coronary artery disease) Status: Chronic (5) Chronic systolic congestive heart failure ICD Code: I50.22 - Chronic systolic congestive heart failure Status: Chronic (6) elevated troponin I rule out non-ST elevation, acute coronary syndrome Status: Acute Assessment and Plan 76-year-old male presents to the emergency department after his defibrillator went off 13 times for ventricular fibrillation. 1. Ventricular fibrillation Pacemaker interrogated, 13 defibrillations for V. fib Elevated cardiac enzymes. Cardiology consulted, appreciate assistance, pt was scheduled for cardiac cath today however he is bacteremic growing gram neg rods/proteus in his blood cx. ID has been consulted. On cefepime IV will continue. Cardiac cath will be reschedule once cleared by ID. Heparin drip per protocol 2. CAD/CHF/A. fib Holding Xarelto Continue diltiazem 100 mg by mouth daily Holding Dofetilide 500mcg by mouth twice a day Nitroglycerin as needed Patient's field marketing manager is Dr. Echavarria, Dr. Harrison covering over the week- end. 3. Bacteremia Blood cx growing proteus species Pt on IV cefepime. Continue for now. Repeat Blood cx Will consult ID for further recs. urine cx <10,000 mixed bianka 4. Insulin-dependent diabetes mellitus SSI Blood glucose checks per protocol and monitor. FEN Heart healthy diet/ADA 1999 Electrolytes: Monitor and replete when necessary No IV fluids at this time Anticoagulation with heparin drip and SCDs Discharge Planning Pt is bacteremic, cardiac cath on hold until clearance from ID. Shiela Frankel MD Jan 20, 2017 11:09
--- NOTE | 2017-01-20 16:49 | PD.ID.CON ---
History of Present Illness Service ID Consult Requested By Reason for Consult Evaluation and Mment of Sepsis, Proteus bacteremia. Primary Care Physician Teja Beach Do, MD Diagnoses: History of Present Illness is a 76 y/o CM with PMHx of CHF, CAD and A. fib anticoagulated on Xarelto. cardiac ablation in 2012 and 2016, and insulin-dependent diabetes mellitus. With this background patient presents to the emergency department after his defibrillator went off 13 times. The patient states that he was going to get out of bed this morning when he was shocked. He states he was shocked many times after that. Interrogation of his defibrillator revealed 13 shocks for V. fib. The patient also was febrile yesterday and has a leukocytosis to 20. Chest x-ray within normal limits. Urine pending. Lactic acid 7.5. On admission pt met criteria for sepsis (WBC 20, tachycardia). Sepsis workup was initiated. Blood cultures are now positive for Proteus mirabilis and ID is consulted for the same. Pertinent positives and negatives: reports seeing urology 1 week prior to admission, no procedures done, UA was negative, rectal exam performed. No antibiotics prior to admission. Positive fever Denies blurry vision, otorrhea, rhinorrhea Denies sore throat and cough No chest pain, no shortness of breath No abdominal pain Denies constipation/diarrhea/nausea/vomiting Denies muscle pain/weakness No rashes Review of Systems Constitutional: COMPLAINS OF: Fever, Chills, DENIES: Diaphoretic episodes, Fatigue, Weight gain, Weight loss, Dizziness, Change in appetite, Night Sweats Endocrine: DENIES: Heat/cold intolerance, Polydipsia, Polyuria, Polyphagia Eyes: DENIES: Blurred vision, Diplopia, Eye inflammation, Eye pain, Vision loss , Photosensitivity, Double Vision Ears, nose, mouth, throat: DENIES: Tinnitus, Hearing loss, Vertigo, Nasal discharge, Oral lesions, Throat pain, Hoarseness, Ear Pain, Running Nose, Epistaxis, Sinus Pain, Toothache, Odynophagia Respiratory: DENIES: Apneas, Cough, Snoring, Wheezing, Hemoptysis, Sputum production, Shortness of breath Cardiovascular: DENIES: Chest pain, Palpitations, Syncope, Dyspnea on Exertion , PND, Lower Extremity Edema, Orthopnea, Claudication Gastrointestinal: DENIES: Abdominal pain, Black stools, Bloody stools, Constipation, Diarrhea, Nausea, Vomiting, Difficulty Swallowing, Anorexia Genitourinary: COMPLAINS OF: Urinary frequency, DENIES: Sexual dysfunction, Urinary incontinence, Urgency, Hematuria, Dysuria, Nocturia, Penile Discharge, Testicular Pain, Testicular Swelling Musculoskeletal: DENIES: Joint pain, Muscle aches, Stiffness, Joint Swelling, Back pain, Neck pain Integumentary: DENIES: Abnormal pigmentation, Nail changes, Pruritus, Rash Hematologic/lymphatic: DENIES: Bruising, Lymphadenopathy Immunologic/allergic: DENIES: Eczema, Urticaria Neurologic: DENIES: Abnormal gait, Headache, Localized weakness, Paresthesias, Seizures, Speech Problems, Tremor, Poor Balance Psychiatric: DENIES: Anxiety, Confusion, Mood changes, Depression, Hallucinations, Agitation, Suicidal Ideation, Homicidal Ideation, Delusions Except as stated in HPI: all other systems reviewed are Neg Past Family Social History Allergies: Coded Allergies: No Known Allergies (Verified Allergy, Unknown, 01/17/17) Past Medical History CHF CAD s/p ANANT negative for vegetations in September 2016 A. 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 Prostate enlargement sees Urology. Hearing impaired ? Hyperlipidemia HTN Seizure disorder Past Surgical History Brain abscess removal and remote history Status post multiple stent placements 20 years ago Cholecystectomy s/p cardiac ablation in 2012 and 2016. Defibrillator, pacemaker. EGD Colonoscopy. H/o removal of infected penile implant in 2008. Joint replacement Appendectomy Cataract surgery retinal detachment Reported Medications Reported Meds & Active Scripts Active Keppra (Levetiracetam) 500 Mg Tab 1,000 Mg PO BID Tikosyn (Dofetilide) 250 Mcg Cap 500 Mcg PO BID Reported Cardizem CD 24 HR (Diltiazem CD 24 HR) 180 Mg Caper 180 Mg PO DAILY Omeprazole 20 Mg Tab 20 Mg PO DAILY Nitroglycerin SL (Nitroglycerin) 0.4 Mg Subl 0.4 Mg SL DIRECTED PRN ONE TABLET UNDER THE TONGUE NEEDED FOR CHEST PAIN, MAY REPEAT EVERY FIVE MINUTES FOR A TOTAL OF 3 DOSES OR CALL 911 IF NO RELIEF Klor-Con M20 (Potassium Chloride Microencaps) 20 Meq Tab 20 Meq PO Q12HR Glipizide 5 Mg Tab 5 Mg PO DAILY Take 30 minutes before a meal Humulin N Inj (Insulin Human NPH) 1,000 Unit/10 Ml Vial Units SQ DIRECTED Xarelto (Rivaroxaban) 20 Mg Tab 20 Mg PO HS Metoprolol Succinate ER 24 HR (Metoprolol Succinate) 200 Mg Tab 200 Mg PO DAILY Lasix (Furosemide) 40 Mg Tab 40 Mg PO DAILY Atorvastatin (Atorvastatin Calcium) 80 Mg Tab 80 Mg PO HS Active Ordered Medications Current Medications Medications (Trade) Dose Ordered Sig/Jaz Route Start Time Stop Time Status Last Admin (Lipitor) 80 mg HS PO 01/18/17 21:00 01/19/17 20:09 (Cardizem Cd) 180 mg DAILY PO 01/18/17 09:00 01/20/17 09:20 (Tikosyn) 500 mcg BID PO 01/18/17 09:00 Future Hold (Lasix) 40 mg DAILY PO 01/18/17 09:00 01/20/17 09:20 (Keppra) 1,000 mg BID PO 01/18/17 09:00 01/20/17 09:19 (Nitrostat Sl) 0.4 mg Q15M PRN SL 01/17/17 21:45 (KCl) 20 meq Q12HR PO 01/18/17 09:00 01/20/17 09:20 (Toprol Xl) 200 mg DAILY PO 01/18/17 09:00 01/20/17 09:20 (Protonix) 20 mg DAILY PO 01/18/17 09:00 01/20/17 09:19 (NS Flush) 2 ml UNSCH PRN IV FLUSH 01/17/17 21:45 (NS Flush) 2 ml BID IV FLUSH 01/18/17 09:00 01/20/17 09:23 (Tylenol) 650 mg Q4H PRN PO 01/17/17 21:45 (Zofran Inj) 4 mg Q6H PRN IVP 01/17/17 21:45 (Narcan Inj) 0.4 mg UNSCH PRN IV PUSH 01/17/17 21:45 (Ingrid-Colace) 1 tab BID PO 01/18/17 09:00 01/20/17 09:20 (Milk Of Magnesia Liq) 30 ml Q12H PRN PO 01/17/17 21:45 (Senokot) 17.2 mg Q12H PRN PO 01/17/17 21:45 (Dulcolax Supp) 10 mg DAILY PRN RECTAL 01/17/17 21:45 (Lactulose Liq) 30 ml DAILY PRN PO 01/17/17 21:45 Sodium Chloride 1,000 ml @ 65 mls/hr [id number] IV 01/17/17 22:00 Future Hold 01/17/17 22:12 (Heparin Inj) 5,000 units UNSCH PRN IV PUSH 01/18/17 05:15 (Heparin Inj) 2,500 units UNSCH PRN IV PUSH 01/18/17 05:15 01/20/17 05:47 Heparin Sodium/ Dextrose 250 ml @ 10 mls/hr TITRATE PRN IV 01/17/17 23:15 01/19/17 18:40 Sodium Chloride 500 ml @ 500 mls/hr BOLUS PRN IV 01/18/17 01:00 01/18/17 01:40 (D50w (Vial) Inj) 50 ml UNSCH PRN IV PUSH 01/18/17 09:00 (Glucagon Inj) 1 mg UNSCH PRN OTHER 01/18/17 09:00 (NovoLOG SUPPLEMENTAL SCALE) 1 ACHS SLIDING SCALE SQ 01/18/17 12:00 01/20/17 12:37 Cefepime HCl 2000 mg/Sodium Chloride 100 ml @ 200 mls/hr Q12H IV 01/18/17 14:00 01/20/17 14:00 Family History Both parents with coronary artery disease, dad with CVA. Social History Occasional alcohol. [id number] history of smoking, quit 20 years ago. Denies marijuana or illicit drugs. Physical Exam Vital Signs Vital Signs Date Time Temp Pulse Resp B/P (MAP) Pulse Ox O2 Delivery O2 Flow Rate FiO2 01/20/17 15:00 97.0 74 14 132/77 (95) 96 01/20/17 15:00 Nasal Cannula 4.00 100 01/20/17 15:00 77 01/20/17 14:00 94 01/20/17 13:00 74 01/20/17 12:00 84 01/20/17 11:00 Nasal Cannula 4.00 100 01/20/17 11:00 97.4 86 14 135/72 (93) 96 01/20/17 11:00 86 01/20/17 10:00 89 01/20/17 09:00 76 01/20/17 08:00 74 01/20/17 07:00 81 01/20/17 07:00 Nasal Cannula 4.00 100 01/20/17 07:00 98.4 81 18 175/97 (123) 98 01/20/17 06:00 74 01/20/17 05:00 77 01/20/17 04:00 75 01/20/17 04:00 Nasal Cannula 4.00 01/20/17 04:00 98.4 75 18 145/74 (97) 95 01/20/17 03:00 74 01/20/17 02:00 70 01/20/17 01:00 72 01/20/17 00:00 Nasal Cannula 4.00 01/20/17 00:00 98.1 71 18 132/63 (86) 96 01/20/17 00:00 71 01/19/17 23:00 72 01/19/17 22:00 72 01/19/17 21:00 77 01/19/17 20:00 Nasal Cannula 4.00 01/19/17 20:00 98.4 81 20 133/67 (89) 97 01/19/17 20:00 81 01/19/17 18:01 72 01/19/17 17:10 97 Nasal Cannula 4.00 01/19/17 17:01 60 Physical Exam GENERAL: Obese, well-developed patient, in no apparent distress. SKIN: No rashes, ecchymoses or lesions. Cool and dry. HEAD: Atraumatic. Normocephalic. No temporal or scalp tenderness. EYES: Pupils equal round and reactive. Extraocular motions intact. No scleral icterus. No injection or drainage. ENT: Nose without bleeding, purulent drainage or septal hematoma. Throat without erythema, tonsillar hypertrophy or exudate. Uvula midline. Airway patent. NECK: Trachea midline. Supple, nontender, no meningeal signs. Pacemaker pocket in left chest wall with no e.o infection. CARDIOVASCULAR: HS audible. RESPIRATORY: Clear to auscultation. Breath sounds equal bilaterally. GASTROINTESTINAL: Abdomen soft, non-tender, nondistended. Obese. MUSCULOSKELETAL: Extremities without clubbing, cyanosis, or edema. No joint tenderness, effusion, or edema noted. No calf tenderness. Negative Homans sign bilaterally. Nails with fungal infection. NEUROLOGICAL: Awake and alert. Cranial nerves II through XII intact. Motor and sensory grossly within normal limits. Five out of 5 muscle strength in all muscle groups. Normal speech. Psych cooperative IV line sites with no e.o infection. Laboratory Laboratory Tests Test 01/19/17 17:25 01/19/17 22:33 01/20/17 05:16 01/20/17 15:05 Activated Partial Thromboplast Time 36.9 40.0 36.5 White Blood Count 9.0 Red Blood Count 3.73 Hemoglobin 11.6 Hematocrit 34.1 Mean Corpuscular Volume 91.3 Mean Corpuscular Hemoglobin 31.1 Mean Corpuscular Hemoglobin Concent 34.1 Red Cell Distribution Width 16.5 Platelet Count 72 Mean Platelet Volume 8.8 Date/Time Source Procedure Growth Status 01/20/17 16:05 Blood Peripheral Aerobic Blood Culture Pending Received 01/20/17 16:05 Blood Peripheral Anaerobic Blood Culture Pending Received 01/18/17 00:20 Urine Clean Catch Urine Culture - Final <10,000 CFU/ML MIXED PRETTY... Complete Result Diagram: 01/20/17 0516 01/19/17 0647 Imaging Last Impressions Chest X-Ray 01/17/17 1839 Signed Impressions: Service Date/Time: Tuesday, January 17, 2017 19:11 - CONCLUSION: Stable cardiomegaly. Left subclavian bipolar pacer Franco Shore MD Assessment and Plan Assessment and Plan Sepsis present on admission. Proteus bacteremia source: ? GI vs H/o PUD with GI bleed earlier this year. 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 Afib Pacemaker and defibrillator in place. Recs DC Cefepime IV Start Ceftriaxone IV Repeat blood cultures x 2 today ECHO today (to look for lead vegetation): no clear source of infection. CT chest/Abd/pelvis (look for e/o dissemination/abscess, source of GN bacteremia ) Check CRP Check PSA (? prostatitis or Prostate abscess) Follow cultures Follow clinically. Shaniqua Kumar MD Jan 20, 2017 16:48
[2017-01-20 16:56] LABS: APTT (PATIENT) 35.2 SEC (24.3-30.1)
[2017-01-20] MEDS: ATORVASTATIN 80 MG TAB PO SCH (20:34)
[2017-01-20] MEDS ORDERED: DIATRIZOATE MEGLUM/DIATRIZOATE SOD 9 ML CUP PO ONE (20:52)
[2017-01-20] MEDS: cefTRIAXone INJ 2,000 MG in SODIUM CHLORIDE 0.9% INJ 100 ML IV SCH (21:51)
--- NOTE | 2017-01-20 22:01 | PD.CARD.PN ---
Subjective Subjective Remarks No chest pain/SOB Objective Medications Current Medications Medications (Trade) Dose Ordered Sig/Jaz Route Start Time Stop Time Status Last Admin (Lipitor) 80 mg HS PO 01/18/17 21:00 01/20/17 20:34 (Cardizem Cd) 180 mg DAILY PO 01/18/17 09:00 01/20/17 09:20 (Tikosyn) 500 mcg BID PO 01/18/17 09:00 Future Hold (Lasix) 40 mg DAILY PO 01/18/17 09:00 01/20/17 09:20 (Keppra) 1,000 mg BID PO 01/18/17 09:00 01/20/17 20:34 (Nitrostat Sl) 0.4 mg Q15M PRN SL 01/17/17 21:45 (KCl) 20 meq Q12HR PO 01/18/17 09:00 01/20/17 20:34 (Toprol Xl) 200 mg DAILY PO 01/18/17 09:00 01/20/17 09:20 (Protonix) 20 mg DAILY PO 01/18/17 09:00 01/20/17 09:19 (NS Flush) 2 ml UNSCH PRN IV FLUSH 01/17/17 21:45 (NS Flush) 2 ml BID IV FLUSH 01/18/17 09:00 01/20/17 09:23 (Tylenol) 650 mg Q4H PRN PO 01/17/17 21:45 (Zofran Inj) 4 mg Q6H PRN IVP 01/17/17 21:45 (Narcan Inj) 0.4 mg UNSCH PRN IV PUSH 01/17/17 21:45 (Ingrid-Colace) 1 tab BID PO 01/18/17 09:00 01/20/17 20:34 (Milk Of Magnesia Liq) 30 ml Q12H PRN PO 01/17/17 21:45 (Senokot) 17.2 mg Q12H PRN PO 01/17/17 21:45 (Dulcolax Supp) 10 mg DAILY PRN RECTAL 01/17/17 21:45 (Lactulose Liq) 30 ml DAILY PRN PO 01/17/17 21:45 Sodium Chloride 1,000 ml @ 65 mls/hr [id number] IV 01/17/17 22:00 Future Hold 01/17/17 22:12 (Heparin Inj) 5,000 units UNSCH PRN IV PUSH 01/18/17 05:15 (Heparin Inj) 2,500 units UNSCH PRN IV PUSH 01/18/17 05:15 01/20/17 05:47 Heparin Sodium/ Dextrose 250 ml @ 10 mls/hr TITRATE PRN IV 01/17/17 23:15 01/19/17 18:40 Sodium Chloride 500 ml @ 500 mls/hr BOLUS PRN IV 01/18/17 01:00 01/18/17 01:40 (D50w (Vial) Inj) 50 ml UNSCH PRN IV PUSH 01/18/17 09:00 (Glucagon Inj) 1 mg UNSCH PRN OTHER 01/18/17 09:00 (NovoLOG SUPPLEMENTAL SCALE) 1 ACHS SLIDING SCALE SQ 01/18/17 12:00 01/20/17 20:35 Ceftriaxone Sodium 2000 mg/ Sodium Chloride 100 ml @ 200 mls/hr Q24H IV 01/20/17 21:00 01/20/17 21:51 Vital Signs / I&O Vital Signs Date Time Temp Pulse Resp B/P (MAP) Pulse Ox O2 Delivery O2 Flow Rate FiO2 01/20/17 18:00 80 01/20/17 17:00 66 01/20/17 16:00 68 01/20/17 15:00 97.0 74 14 132/77 (95) 96 01/20/17 15:00 Nasal Cannula 4.00 100 01/20/17 15:00 77 01/20/17 14:00 94 01/20/17 13:00 74 01/20/17 12:00 84 01/20/17 11:00 Nasal Cannula 4.00 100 01/20/17 11:00 97.4 86 14 135/72 (93) 96 01/20/17 11:00 86 01/20/17 10:00 89 01/20/17 09:00 76 01/20/17 08:00 74 01/20/17 07:00 81 01/20/17 07:00 Nasal Cannula 4.00 100 01/20/17 07:00 98.4 81 18 175/97 (123) 98 01/20/17 06:00 74 01/20/17 05:00 77 01/20/17 04:00 75 01/20/17 04:00 Nasal Cannula 4.00 01/20/17 04:00 98.4 75 18 145/74 (97) 95 01/20/17 03:00 74 01/20/17 02:00 70 01/20/17 01:00 72 01/20/17 00:00 Nasal Cannula 4.00 01/20/17 00:00 98.1 71 18 132/63 (86) 96 01/20/17 00:00 71 01/19/17 23:00 72 01/19/17 22:00 72 I/O 01/19/17 01/19/17 01/19/17 01/20/17 01/20/17 01/20/17 07:00 15:00 23:00 07:00 15:00 23:00 Intake Total 400 ml 840 ml 480 ml 580 ml Output Total 800 ml 1100 ml 950 ml 651 ml Balance -400 ml -260 ml -470 ml -71 ml Intake Oral 400 ml 840 ml 480 ml 580 ml Packed Cells 0 ml Output Urine Total 800 ml 1100 ml 950 ml 650 ml Stool Total 1 ml # Voids 4 # Bowel Movements 0 0 0 Physical Exam GENERAL: NAD, AAOx3 SKIN: Warm and dry. HEAD: Atraumatic. Normocephalic. EYES: Pupils equal and round. No scleral icterus. No injection or drainage. ENT: No nasal bleeding or discharge. Mucous membranes pink and moist. NECK: Trachea midline. No JVD. CARDIOVASCULAR: Regular rate and rhythm. RESPIRATORY: No accessory muscle use. Clear to auscultation. Breath sounds equal bilaterally. GASTROINTESTINAL: Abdomen soft, non-tender, nondistended. Hepatic and splenic margins not palpable. MUSCULOSKELETAL: Extremities without clubbing, cyanosis, or edema. No obvious deformities. NEUROLOGICAL: Awake and alert. No obvious cranial nerve deficits. Motor grossly within normal limits. Five out of 5 muscle strength in the arms and legs. Normal speech. PSYCHIATRIC: Appropriate mood and affect; insight and judgment normal. Laboratory Laboratory Tests Test 01/19/17 22:33 01/20/17 05:16 01/20/17 15:05 01/20/17 17:11 Activated Partial Thromboplast Time 40.0 SEC 36.5 SEC 35.2 SEC White Blood Count 9.0 TH/MM3 Red Blood Count 3.73 MIL/MM3 Hemoglobin 11.6 GM/DL Hematocrit 34.1 % Mean Corpuscular Volume 91.3 FL Mean Corpuscular Hemoglobin 31.1 PG Mean Corpuscular Hemoglobin Concent 34.1 % Red Cell Distribution Width 16.5 % Platelet Count 72 TH/MM3 Mean Platelet Volume 8.8 FL Test 01/20/17 20:17 C-Reactive Protein 14.00 MG/DL Assessment and Plan Problem List: (1) Bacteremia ICD Codes: R78.81 - Bacteremia (2) AICD discharge ICD Codes: Z45.02 - Encounter for adjustment and management of automatic implantable cardiac defibrillator (3) Elevated troponin ICD Codes: R74.8 - Abnormal levels of other serum enzymes Status: Acute (4) Cardiomyopathy with implantable cardioverter-defibrillator ICD Codes: I42.9 - Cardiomyopathy, unspecified; Z95.810 - Presence of automatic (implantable) cardiac defibrillator Status: Acute (5) Urinary tract infection ICD Codes: N39.0 - Urinary tract infection, site not specified (6) DM2 (diabetes mellitus, type 2) ICD Codes: E11.9 - Type 2 diabetes mellitus without complications Status: Chronic Assessment and Plan 1) AICD firing for Vfib For now medical management Will need ischemic evaluation, will hold off until bacteremia clears 2) UTI 3) Sepsis Blood cultures positive for gram negative rods Lactic acidosis 4) Thrombocytopenia Continue to follow, watch with heparin Possible due to sepsis 5) Afib Will plan to hold Tikosyn for now due to ventricular arrhythmias 6) QTc mildly prolonged EGKs in the past have had a similar QTc length without problem 7) Cardiac catheterization on hold due to sepsis/bacteremia Sid Harrison DO Jan 20, 2017 22:01
[2017-01-20] MEDS: HEPARIN-D5W 25,000 U/250 ML 250 ML IV PRN (23:08)
[2017-01-20 23:31] LABS: APTT (PATIENT) 32.9 SEC (24.3-30.1)
[2017-01-21] VITALS (27 sets, daily range): BP systolic 144–172; BP diastolic 65–90; PULSE 62–84; RESP 16–22; TEMP 98–98.7; O2SAT 94–97
[2017-01-21] MEDS ORDERED: IOHEXOL 350 MG/ML 10 ML VIAL (for RAD DIAG) IVCONTRAST ONE (00:40)
--- NOTE | 2017-01-21 00:58 | RADRPT ---
EXAM DATE/TIME: 01/21/2017 00:38 [facility] COMPARISON: CT ABDOMEN & PELVIS W CONTRAST, February 04, 2009, 15:08. INDICATIONS : Gram negative bacteremia, looking for source of infection. IV CONTRAST: 95 cc Omnipaque 350 (iohexol) IV ; Cumulative dose for multiple exams. ORAL CONTRAST: Partial prescribed oral contrast ingested. RADIATION DOSE: 19.41 CTDIvol (mGy) ; Combined studies - Thorax/Abdomen/Pelvis MEDICAL HISTORY : Cardiovascular disease. Gastroesophageal reflux disease. Renal calculi.Diabetes. Ulcer. Myocardial in fraction. Hypertension. SURGICAL HISTORY : Pacemaker. Cholecystectomy. ENCOUNTER: Initial ACUITY: 1 day PAIN SCALE: 0/10 LOCATION: Bilateral abdomen TECHNIQUE: Volumetric scanning of the abdomen and pelvis was performed. Using automated exposure control and ad justment of the mA and/or kV according to patient size, radiation dose was kept as low as reasonably achievable to obtain optimal diagnostic quality images. DICOM format image data is available electro nically for review and comparison. FINDINGS: Small bilateral pleural effusions are present right greater than left. There is subsegmental atelect asis in the both bases. There is decreased density of the liver with respect to the spleen compatible with fatty infiltration. There is a 1 cm hypodensity in segment 7 which may reflect a cyst The splee n is unremarkable with the exception of multiple granulomas. The gallbladder is absent. The pancreas demonstrates normal contour without evidence of mass or ductal dilatation. The adrenal nodules likely reflecting adenomas. There are simple cysts bilaterally the largest measuring 4 cm in the lower pole of the left. There is right hydronephrosis and hydroureter to the level of a 4 mm stone in the dista l ureter Examination of the pelvis demonstrates no evidence of free fluid or pelvic mass. No abnormally enlarg ed inguinal or retroperitoneal lymph nodes are present. The bladder is unremarkable. There is diverti culosis without evidence of diverticulitis. There is questionable mucosal lesion involving the distal transverse colon. Colonoscopy is recommended for further evaluation if clinically indicated. CONCLUSION: 1. 4 mm distal right ureteral stone with mild hydronephrosis 2. 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 Diverticulosis without evidence of diverticulitis. Possible mucosal lesion of the transverse col on. Colonoscopy is recommended for further evaluation if clinically indicated. Ashutosh Read MD on January 21, 2017 at 0:50 Board Certified Radiologist. This report was verified electronically.
--- NOTE | 2017-01-21 01:03 | RADRPT ---
EXAM DATE/TIME: 01/21/2017 00:38 [facility] COMPARISON: No previous studies available for comparison. INDICATIONS : Pneumonia. Short of breath. IV CONTRAST: 95 cc Omnipaque 350 (iohexol) IV ; Cumulative dose for multiple exams. RADIATION DOSE: 19.41 CTDIvol (mGy) ; Combined studies - Thorax/Abdomen/Pelvis MEDICAL HISTORY : Cardiovascular disease. Myocardial infarction. Gastroesophageal reflux disease.Renal calculi. Hyperte nsion. Diabetes. SURGICAL HISTORY : Pacemaker. Cholecystectomy. ENCOUNTER: Initial ACUITY: 1 day PAIN SCALE: 0/10 LOCATION: chest TECHNIQUE: Volumetric scanning of the chest was performed. Using automated exposure control and adjustment of t he mA and/or kV according to patient size, radiation dose was kept as low as reasonably achievable to obtain optimal diagnostic quality images. DICOM format image data is available electronically for review and comparison. Follow-up recommendations for detected pulmonary nodules are based at a minimum on nodule size and pa tient risk factors according to Fleischner Society Guidelines. FINDINGS: Small bilateral pleural effusions are present right greater than left. There is subsegmental atelect asis in the both bases. There is a 5 mm nodule right middle lobe. Followup CT scan in 6 months is re commended.there is a second 3 mm nodule in the right lower lobe. There are centrilobular emphysematou s changes in both lower lobes. Examination of the mediastinum demonstrates no abnormally enlarged lymph nodes by CT criteria. No axi llary or hilar abnormalities are identified. Coronary artery calcifications are present. There is a 2 cm nodule in the lower pole of the right lobe of the thyroid. Ultrasound examination is recommended if clinically indicated. CONCLUSION: 1. Small bilateral effusions and bibasilar atelectasis 2. 5 mm nodule right middle lobe. Followup CT scan in 6 months is recommended. 3. 2 cm nodule right lobe of the thyroid. Ultrasound examination is recommended if clinically indicat ed. Ashutosh Read MD on January 21, 2017 at 0:57 Board Certified Radiologist. This report was verified electronically.
[2017-01-21 06:18] LABS: BASOPHIL % 0.4 % (0.0-2.0); EOSINOPHIL # 0.1 TH/MM3 (0-0.4); EOSINOPHIL % 1.6 % (0.0-4.0); HEMATOCRIT 33.3 % (39.0-51.0); LYMPH % 10.2 % (9.0-44.0); LYMPHOCYTE # 0.9 TH/MM3 (1.0-4.8); MEAN CORPUSCULAR HEMOGLOBIN 31.2 PG (27.0-34.0); MEAN CORPUSCULAR HGB CONC 34.3 % (32.0-36.0); MONO % 10.1 % (0.0-8.0); NEUT % 77.7 % (16.0-70.0); PLATELET COUNT 86 TH/MM3 (150-450); RED BLOOD COUNT 3.66 MIL/MM3 (4.50-5.90); RED CELL DISTRIBUTION WIDTH 16.3 % (11.6-17.2)
[2017-01-21 06:24] LABS: APTT (PATIENT) 43.1 SEC (24.3-30.1)
[2017-01-21 06:32] LABS: HEMO FLAGS AUTO DIFF
[2017-01-21 06:41] LABS: BICARBONATE 28.6 MEQ/L (21.0-32.0); POTASSIUM 3.9 MEQ/L (3.5-5.1)
[2017-01-21] MEDS: INSULIN ASPART SUPPLEMENTAL SCALE SQ SCH ×4 (08:04→21:00)
[2017-01-21 09:08] LABS: BANDS 11 % (0-6); CORRECTED NUCLEATED RBC 1 /100 WBC (0-0); EOSINOPHILS 4 % (0-4); POLYS (SEG NEUTROPHILS) 67 % (16-70); WBC DIFF SAMPLE 100
[2017-01-21 09:09] LABS: PLATELET ESTIMATE SMEAR LOW (NORMAL); PLATELET MORPHOLOGY NORMAL (NORMAL); SCAN/DIFF FINAL DIFF MANUAL
[2017-01-21] MEDS: PANTOPRAZOLE SOD 20 MG DELAYED RELEASE TAB PO SCH (09:28)
[2017-01-21] MEDS: DILTIAZEM-CD 180 MG CAP ER PO SCH (09:28)
[2017-01-21] MEDS: levETIRAcetam 500 MG TAB PO SCH ×2 (09:28→22:31)
[2017-01-21] MEDS: POTASSIUM CHLORIDE 20 MEQ CONTROLLED RELEASE TAB PO SCH ×2 (09:28→22:32)
[2017-01-21] MEDS: DOCUSATE SODIUM 50 MG/SENNA 8.6 MG TAB PO SCH ×2 (09:29→21:00)
[2017-01-21] MEDS: SODIUM CHLORIDE 0.9% FLUSH 10 ML FLUSH IV FLUSH SCH ×2 (09:29→22:32)
[2017-01-21] MEDS: FUROSEMIDE 40 MG TAB PO SCH (09:29)
[2017-01-21] MEDS: METOPROLOL SUCCINATE 50 MG EXTENDED RELEASE TAB PO SCH (09:29)
--- NOTE | 2017-01-21 11:02 | PD.CARD.PN ---
Subjective Subjective Remarks No chest pain/SOB No fevers/chills Objective Medications Current Medications Medications (Trade) Dose Ordered Sig/Jaz Route Start Time Stop Time Status Last Admin (Lipitor) 80 mg HS PO 01/18/17 21:00 01/20/17 20:34 (Cardizem Cd) 180 mg DAILY PO 01/18/17 09:00 01/21/17 09:28 (Tikosyn) 500 mcg BID PO 01/18/17 09:00 Future Hold (Lasix) 40 mg DAILY PO 01/18/17 09:00 01/21/17 09:29 (Keppra) 1,000 mg BID PO 01/18/17 09:00 01/21/17 09:28 (Nitrostat Sl) 0.4 mg Q15M PRN SL 01/17/17 21:45 (KCl) 20 meq Q12HR PO 01/18/17 09:00 01/21/17 09:28 (Toprol Xl) 200 mg DAILY PO 01/18/17 09:00 01/21/17 09:29 (Protonix) 20 mg DAILY PO 01/18/17 09:00 01/21/17 09:28 (NS Flush) 2 ml UNSCH PRN IV FLUSH 01/17/17 21:45 (NS Flush) 2 ml BID IV FLUSH 01/18/17 09:00 01/21/17 09:29 (Tylenol) 650 mg Q4H PRN PO 01/17/17 21:45 (Zofran Inj) 4 mg Q6H PRN IVP 01/17/17 21:45 (Narcan Inj) 0.4 mg UNSCH PRN IV PUSH 01/17/17 21:45 (Ingrid-Colace) 1 tab BID PO 01/18/17 09:00 01/20/17 20:34 (Milk Of Magnesia Liq) 30 ml Q12H PRN PO 01/17/17 21:45 (Senokot) 17.2 mg Q12H PRN PO 01/17/17 21:45 (Dulcolax Supp) 10 mg DAILY PRN RECTAL 01/17/17 21:45 (Lactulose Liq) 30 ml DAILY PRN PO 01/17/17 21:45 Sodium Chloride 1,000 ml @ 65 mls/hr [id number] IV 01/17/17 22:00 Future Hold 01/17/17 22:12 (Heparin Inj) 5,000 units UNSCH PRN IV PUSH 01/18/17 05:15 (Heparin Inj) 2,500 units UNSCH PRN IV PUSH 01/18/17 05:15 01/20/17 23:49 Heparin Sodium/ Dextrose 250 ml @ 10 mls/hr TITRATE PRN IV 01/17/17 23:15 01/20/17 23:08 Sodium Chloride 500 ml @ 500 mls/hr BOLUS PRN IV 01/18/17 01:00 01/18/17 01:40 (D50w (Vial) Inj) 50 ml UNSCH PRN IV PUSH 01/18/17 09:00 (Glucagon Inj) 1 mg UNSCH PRN OTHER 01/18/17 09:00 (NovoLOG SUPPLEMENTAL SCALE) 1 ACHS SLIDING SCALE SQ 01/18/17 12:00 01/20/17 20:35 Ceftriaxone Sodium 2000 mg/ Sodium Chloride 100 ml @ 200 mls/hr Q24H IV 01/20/17 21:00 01/20/17 21:51 Vital Signs / I&O Vital Signs Date Time Temp Pulse Resp B/P (MAP) Pulse Ox O2 Delivery O2 Flow Rate FiO2 01/21/17 06:00 70 01/21/17 05:00 66 01/21/17 04:00 98.3 74 20 147/73 (97) 96 01/21/17 04:00 96 Nasal Cannula 2.00 01/21/17 03:28 62 01/21/17 03:00 66 01/21/17 02:00 72 01/21/17 01:00 84 01/21/17 00:00 98.7 72 22 159/74 (102) 94 01/21/17 00:00 94 Nasal Cannula 2.00 01/20/17 23:00 84 01/20/17 22:00 66 01/20/17 21:00 66 01/20/17 20:00 62 01/20/17 20:00 98.4 64 20 154/75 (101) 98 01/20/17 20:00 98 Nasal Cannula 2.00 01/20/17 19:27 64 01/20/17 19:00 62 01/20/17 18:00 80 01/20/17 17:00 66 01/20/17 16:00 68 01/20/17 15:00 97.0 74 14 132/77 (95) 96 01/20/17 15:00 Nasal Cannula 4.00 100 01/20/17 15:00 77 01/20/17 14:00 94 01/20/17 13:00 74 01/20/17 12:00 84 I/O 01/20/17 01/20/17 01/20/17 01/21/17 01/21/17 01/21/17 07:00 15:00 23:00 07:00 15:00 23:00 Intake Total 480 ml 680 ml 361 ml Output Total 950 ml 651 ml 1825 ml Balance -470 ml 29 ml -1464 ml Intake Oral 480 ml 580 ml 240 ml IV Total 100 ml 121 ml Packed Cells 0 ml Output Urine Total 950 ml 650 ml 1825 ml Stool Total 1 ml # Bowel Movements 0 1 Physical Exam GENERAL: NAD, AAOx3 SKIN: Warm and dry. HEAD: Atraumatic. Normocephalic. EYES: Pupils equal and round. No scleral icterus. No injection or drainage. ENT: No nasal bleeding or discharge. Mucous membranes pink and moist. NECK: Trachea midline. No JVD. CARDIOVASCULAR: Regular rate and rhythm. RESPIRATORY: No accessory muscle use. Clear to auscultation. Breath sounds equal bilaterally. GASTROINTESTINAL: Abdomen soft, non-tender, nondistended. Hepatic and splenic margins not palpable. MUSCULOSKELETAL: Extremities without clubbing, cyanosis, or edema. No obvious deformities. NEUROLOGICAL: Awake and alert. No obvious cranial nerve deficits. Motor grossly within normal limits. Five out of 5 muscle strength in the arms and legs. Normal speech. PSYCHIATRIC: Appropriate mood and affect; insight and judgment normal. Laboratory Laboratory Tests Test 01/20/17 15:05 01/20/17 17:11 01/20/17 20:17 01/20/17 22:20 Activated Partial Thromboplast Time 35.2 SEC 32.9 SEC C-Reactive Protein 14.00 MG/DL Test 01/21/17 05:59 White Blood Count 9.0 TH/MM3 Red Blood Count 3.66 MIL/MM3 Hemoglobin 11.4 GM/DL Hematocrit 33.3 % Mean Corpuscular Volume 91.0 FL Mean Corpuscular Hemoglobin 31.2 PG Mean Corpuscular Hemoglobin Concent 34.3 % Red Cell Distribution Width 16.3 % Platelet Count 86 TH/MM3 Mean Platelet Volume 8.4 FL Neutrophils (%) (Auto) 77.7 % Lymphocytes (%) (Auto) 10.2 % Monocytes (%) (Auto) 10.1 % Eosinophils (%) (Auto) 1.6 % Basophils (%) (Auto) 0.4 % Neutrophils # (Auto) 7.0 TH/MM3 Lymphocytes # (Auto) 0.9 TH/MM3 Monocytes # (Auto) 0.9 TH/MM3 Eosinophils # (Auto) 0.1 TH/MM3 Basophils # (Auto) 0.0 TH/MM3 CBC Comment AUTO DIFF Differential Total Cells Counted 100 Neutrophils % (Manual) 67 % Band Neutrophils % 11 % Lymphocytes % 14 % Monocytes % 4 % Eosinophils % 4 % Neutrophils # (Manual) 7.0 TH/MM3 Nucleated Red Blood Cells 1 /100 WBC Differential Comment FINAL DIFF MANUAL Platelet Estimate LOW Platelet Morphology Comment NORMAL Red Cell Morphology Comment NORMAL Activated Partial Thromboplast Time 43.1 SEC Blood Urea Nitrogen 20 MG/DL Creatinine 1.06 MG/DL Random Glucose 131 MG/DL Calcium Level 8.8 MG/DL Sodium Level 135 MEQ/L Potassium Level 3.9 MEQ/L Chloride Level 100 MEQ/L Carbon Dioxide Level 28.6 MEQ/L Anion Gap 6 MEQ/L Estimat Glomerular Filtration Rate 68 ML/MIN Assessment and Plan Problem List: (1) Bacteremia ICD Codes: R78.81 - Bacteremia (2) AICD discharge ICD Codes: Z45.02 - Encounter for adjustment and management of automatic implantable cardiac defibrillator (3) Elevated troponin ICD Codes: R74.8 - Abnormal levels of other serum enzymes Status: Acute (4) Cardiomyopathy with implantable cardioverter-defibrillator ICD Codes: I42.9 - Cardiomyopathy, unspecified; Z95.810 - Presence of automatic (implantable) cardiac defibrillator Status: Acute (5) Urinary tract infection ICD Codes: N39.0 - Urinary tract infection, site not specified (6) DM2 (diabetes mellitus, type 2) ICD Codes: E11.9 - Type 2 diabetes mellitus without complications Status: Chronic Assessment and Plan 1) AICD firing for Vfib For now medical management Will need ischemic evaluation, will hold off until bacteremia clears 2) UTI 3) Sepsis Blood cultures positive for gram negative rods Lactic acidosis 4) Thrombocytopenia Continue to follow, watch with heparin Possible due to sepsis Platelets mildly better 5) Afib Will plan to hold Tikosyn for now due to ventricular arrhythmias 6) QTc mildly prolonged EGKs in the past have had a similar QTc length without problem 7) Cardiac catheterization on hold due to sepsis/bacteremia Sid Harrison DO Jan 21, 2017 11:02
--- NOTE | 2017-01-21 12:15 | HHI.PR ---
Subjective Remarks Pt has no complaints today. Feels ok, no CP/SOB/N/V/abdominal pain/fevers or chills Objective Vitals Vital Signs Date Time Temp Pulse Resp B/P (MAP) Pulse Ox O2 Delivery O2 Flow Rate FiO2 01/21/17 06:00 70 01/21/17 05:00 66 01/21/17 04:00 98.3 74 20 147/73 (97) 96 01/21/17 04:00 96 Nasal Cannula 2.00 01/21/17 03:28 62 01/21/17 03:00 66 01/21/17 02:00 72 01/21/17 01:00 84 01/21/17 00:00 98.7 72 22 159/74 (102) 94 01/21/17 00:00 94 Nasal Cannula 2.00 01/20/17 23:00 84 01/20/17 22:00 66 01/20/17 21:00 66 01/20/17 20:00 62 01/20/17 20:00 98.4 64 20 154/75 (101) 98 01/20/17 20:00 98 Nasal Cannula 2.00 01/20/17 19:27 64 01/20/17 19:00 62 01/20/17 18:00 80 01/20/17 17:00 66 01/20/17 16:00 68 01/20/17 15:00 97.0 74 14 132/77 (95) 96 01/20/17 15:00 Nasal Cannula 4.00 100 01/20/17 15:00 77 01/20/17 14:00 94 01/20/17 13:00 74 I/O 01/20/17 01/20/17 01/20/17 01/21/17 01/21/17 01/21/17 07:00 15:00 23:00 07:00 15:00 23:00 Intake Total 480 ml 680 ml 361 ml Output Total 950 ml 651 ml 1825 ml Balance -470 ml 29 ml -1464 ml Intake Oral 480 ml 580 ml 240 ml IV Total 100 ml 121 ml Packed Cells 0 ml Output Urine Total 950 ml 650 ml 1825 ml Stool Total 1 ml # Bowel Movements 0 1 Result Diagram: 01/21/17 0559 01/21/17 0559 Imaging Last Impressions Chest CT 01/20/17 0000 Signed Impressions: Service Date/Time: Saturday, January 21, 2017 00:38 - CONCLUSION: 1. Small bilateral effusions and bibasilar atelectasis 2. 5 mm nodule right middle lobe. Followup CT scan in 6 months is recommended. 3. 2 cm nodule right lobe of the thyroid. Ultrasound examination is recommended if clinically indicated. Ashutosh Read MD Abdomen/Pelvis CT 01/20/17 0000 Signed Impressions: Service Date/Time: Saturday, January 21, 2017 00:38 - CONCLUSION: 1. 4 mm distal right ureteral stone with mild hydronephrosis 2. 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 Diverticulosis without evidence of diverticulitis. Possible mucosal lesion of the transverse colon. Colonoscopy is recommended for further evaluation if clinically indicated. Ashutosh Read MD Chest X-Ray 01/17/17 1839 Signed Impressions: Service Date/Time: Tuesday, January 17, 2017 19:11 - CONCLUSION: Stable cardiomegaly. Left subclavian bipolar pacer Franco Shore MD Objective Remarks GEN: Well-developed, well-nourished patient. laying in bed, laying in bed appears comfortable CV: Regular rate and rhythm without obvious murmurs LUNGS: Clear to auscultation bilaterally. Normal respiratory effort. No wheezes GI: Soft, nontender,some discomfort to deep palpation on the left upper quadrant. No palpable masses. no guarding or rebound. Bowel sounds WNL. EXT: No edema. NEURO/PSYCH: Afocal. Awake, alert, and oriented x3. Appropriate insight and judgment. A/P Problem List: (1) Urinary tract infection ICD Code: N39.0 - Urinary tract infection, site not specified (2) Ventricular fibrillation ICD Code: I49.01 - Ventricular fibrillation; Z95.810 - Presence of automatic ( implantable) cardiac defibrillator Status: Acute (3) DM2 (diabetes mellitus, type 2) ICD Code: E11.9 - Type 2 diabetes mellitus without complications Status: Chronic (4) CAD (coronary artery disease) ICD Code: I25.10 - CAD (coronary artery disease) Status: Chronic (5) Chronic systolic congestive heart failure ICD Code: I50.22 - Chronic systolic congestive heart failure Status: Chronic (6) elevated troponin I rule out non-ST elevation, acute coronary syndrome Status: Acute Assessment and Plan 76-year-old male presents to the emergency department after his defibrillator went off 13 times for ventricular fibrillation. 1. Ventricular fibrillation Pacemaker interrogated, 13 defibrillations for V. fib Elevated cardiac enzymes. Cardiology following, appreciate assistance, pt was scheduled for cardiac cath however he is bacteremic growing proteus in his blood cx. ID following. Cardiac cath will be reschedule once cleared by ID. Heparin drip per protocol 2. CAD/CHF/A. fib Holding Xarelto Continue diltiazem 100 mg by mouth daily Holding Dofetilide 500mcg by mouth twice a day Nitroglycerin as needed Patient's opal miner is Dr. Echavarria, Dr. Harrison following. 3. Bacteremia Blood cx growing proteus species repeat blood cx neg x 1 day. u/a neg. s/p cefepime but now on IV rocephin per ID recs. CT chest shows small B effusion and bibasilar atelectasis. 5mm nodule right middle lobe and recommendations are for f/u CT in 6 months. 2 cm nodule in right lobe of thyroid. check TSH/Free T4. u/s of the thyroid and further work -up to be done as an outpatient, pt notified and agreeable w plan. CT abd/pelvis : 4mm distal right ureteral stone w mild hydronephrosis. probable bilateral adrenal adenomas. diverticulosis without evidence of diverticulitis. Possible mucosal lesion of the transverse colon. Pt will need further eval via colonoscopy which can be done as an outpatient. Pt tells me that he follows w the [facility], cannot remember name of physician but had a colonoscopy recently and procedure was done here. Pt was seen by Dr. Funez in 2016. Colonoscopy at the time showed diverticulosis and internal hemorrhoids, prep was subobtimal. Pt instructed to f/u w him regarding CT findings. f/u cultures. PSA pending. 4. Insulin-dependent diabetes mellitus SSI Blood glucose checks per protocol and monitor. FEN Heart healthy diet/ADA 1999 Electrolytes: Monitor and replete when necessary No IV fluids at this time Anticoagulation with heparin drip and SCDs Discharge Planning Pt is bacteremic, cardiac cath on hold until clearance from ID. Shiela Frankel MD Jan 21, 2017 12:15
[2017-01-21 14:43] LABS: FREE T4 1.53 NG/DL (0.76-1.46)
[2017-01-21 14:44] LABS: APTT (PATIENT) 39.9 SEC (24.3-30.1)
[2017-01-21] MEDS: HEPARIN SODIUM - IV 10,000 UNITS/10 ML VIAL IV PUSH PRN (15:08)
--- NOTE | 2017-01-21 15:12 | HHI.IDPN ---
Subjective Subjective Remarks is a 76 y/o CM with PMHx of CHF, CAD and A. fib anticoagulated on Xarelto. cardiac ablation in 2012 and 2016, and insulin-dependent diabetes mellitus. With this background patient presents to the emergency department after his defibrillator went off 13 times. The patient states that he was going to get out of bed this morning when he was shocked. He states he was shocked many times after that. Interrogation of his defibrillator revealed 13 shocks for V. fib. The patient also was febrile yesterday and has a leukocytosis to 20. Chest x-ray within normal limits. Urine pending. Lactic acid 7.5. On admission pt met criteria for sepsis (WBC 20, tachycardia). Sepsis workup was initiated. Blood cultures are now positive for Proteus mirabilis and ID is consulted for the same. Pertinent positives and negatives: reports seeing urology 1 week prior to admission, no procedures done, UA was negative, rectal exam performed. No antibiotics prior to admission. Positive fever Denies blurry vision, otorrhea, rhinorrhea Denies sore throat and cough No chest pain, no shortness of breath No abdominal pain Denies constipation/diarrhea/nausea/vomiting Denies muscle pain/weakness No rashes Overnight events reviewed. No fever No rash No diarrhea Undergoing ECHO in room. No CP or SOB. Antibiotics Ceftriaxone IV Lines Line sites with no e.o infection. Past Medical History reviewed Allergies: Coded Allergies: No Known Allergies (Verified Allergy, Unknown, 01/17/17) Objective . Vital Signs Date Time Temp Pulse Resp B/P (MAP) Pulse Ox O2 Delivery O2 Flow Rate FiO2 01/21/17 14:13 73 01/21/17 13:00 66 01/21/17 12:00 98.2 75 16 144/68 (93) 94 01/21/17 12:00 70 01/21/17 11:30 94 Room Air 01/21/17 11:04 74 01/21/17 10:00 74 01/21/17 09:00 76 01/21/17 08:00 97 Room Air 01/21/17 08:00 70 01/21/17 08:00 98.4 72 16 172/90 (117) 97 01/21/17 07:00 74 01/21/17 06:00 70 01/21/17 05:00 66 01/21/17 04:00 98.3 74 20 147/73 (97) 96 01/21/17 04:00 96 Nasal Cannula 2.00 01/21/17 03:28 62 01/21/17 03:00 66 01/21/17 02:00 72 01/21/17 01:00 84 01/21/17 00:00 98.7 72 22 159/74 (102) 94 01/21/17 00:00 94 Nasal Cannula 2.00 01/20/17 23:00 84 01/20/17 22:00 66 01/20/17 21:00 66 01/20/17 20:00 62 01/20/17 20:00 98.4 64 20 154/75 (101) 98 01/20/17 20:00 98 Nasal Cannula 2.00 01/20/17 19:27 64 01/20/17 19:00 62 01/20/17 18:00 80 01/20/17 17:00 66 01/20/17 16:00 68 . Laboratory Tests Test 01/20/17 05:16 01/21/17 05:59 White Blood Count 9.0 TH/MM3 9.0 TH/MM3 Red Blood Count 3.73 MIL/MM3 3.66 MIL/MM3 Hemoglobin 11.6 GM/DL 11.4 GM/DL Hematocrit 34.1 % 33.3 % Mean Corpuscular Volume 91.3 FL 91.0 FL Mean Corpuscular Hemoglobin 31.1 PG 31.2 PG Mean Corpuscular Hemoglobin Concent 34.1 % 34.3 % Red Cell Distribution Width 16.5 % 16.3 % Platelet Count 72 TH/MM3 86 TH/MM3 Mean Platelet Volume 8.8 FL 8.4 FL Neutrophils (%) (Auto) 77.7 % Lymphocytes (%) (Auto) 10.2 % Monocytes (%) (Auto) 10.1 % Eosinophils (%) (Auto) 1.6 % Basophils (%) (Auto) 0.4 % Neutrophils # (Auto) 7.0 TH/MM3 Lymphocytes # (Auto) 0.9 TH/MM3 Monocytes # (Auto) 0.9 TH/MM3 Eosinophils # (Auto) 0.1 TH/MM3 Basophils # (Auto) 0.0 TH/MM3 CBC Comment AUTO DIFF Differential Total Cells Counted 100 Neutrophils % (Manual) 67 % Band Neutrophils % 11 % Lymphocytes % 14 % Monocytes % 4 % Eosinophils % 4 % Neutrophils # (Manual) 7.0 TH/MM3 Nucleated Red Blood Cells 1 /100 WBC Differential Comment FINAL DIFF MANUAL Platelet Estimate LOW Platelet Morphology Comment NORMAL Red Cell Morphology Comment NORMAL Laboratory Tests Test 01/20/17 17:11 01/20/17 20:17 01/21/17 05:59 C-Reactive Protein 14.00 MG/DL Blood Urea Nitrogen 20 MG/DL Creatinine 1.06 MG/DL Random Glucose 131 MG/DL Calcium Level 8.8 MG/DL Sodium Level 135 MEQ/L Potassium Level 3.9 MEQ/L Chloride Level 100 MEQ/L Carbon Dioxide Level 28.6 MEQ/L Anion Gap 6 MEQ/L Estimat Glomerular Filtration Rate 68 ML/MIN Free Thyroxine 1.53 NG/DL Thyroid Stimulating Hormone 3rd Gen 1.470 uIU/ML Microbiology Date/Time Source Procedure Growth Status 01/20/17 16:05 Blood Peripheral Aerobic Blood Culture - Preliminary NO GROWTH IN 1 DAY Resulted 01/20/17 16:05 Blood Peripheral Anaerobic Blood Culture - Preliminary NO GROWTH IN 1 DAY Resulted 01/20/17 16:00 Blood Peripheral Aerobic Blood Culture - Preliminary NO GROWTH IN 1 DAY Resulted 01/20/17 16:00 Blood Peripheral Anaerobic Blood Culture - Preliminary NO GROWTH IN 1 DAY Resulted Imaging Last Impressions Chest CT 01/20/17 0000 Signed Impressions: Service Date/Time: Saturday, January 21, 2017 00:38 - CONCLUSION: 1. Small bilateral effusions and bibasilar atelectasis 2. 5 mm nodule right middle lobe. Followup CT scan in 6 months is recommended. 3. 2 cm nodule right lobe of the thyroid. Ultrasound examination is recommended if clinically indicated. Ashutosh Read MD Abdomen/Pelvis CT 01/20/17 0000 Signed Impressions: Service Date/Time: Saturday, January 21, 2017 00:38 - CONCLUSION: 1. 4 mm distal right ureteral stone with mild hydronephrosis 2. 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 Diverticulosis without evidence of diverticulitis. Possible mucosal lesion of the transverse colon. Colonoscopy is recommended for further evaluation if clinically indicated. Ashutosh Read MD Chest X-Ray 01/17/17 1449 Signed Impressions: Service Date/Time: Tuesday, January 17, 2017 19:11 - CONCLUSION: Stable cardiomegaly. Left subclavian bipolar pacer Franco Shore MD Physical Exam GENERAL: Obese, well-developed patient, in no apparent distress. SKIN: No rashes, ecchymoses or lesions. Cool and dry. HEAD: Atraumatic. Normocephalic. No temporal or scalp tenderness. EYES: Pupils equal round and reactive. Extraocular motions intact. No scleral icterus. No injection or drainage. ENT: Nose without bleeding, purulent drainage or septal hematoma. Throat without erythema, tonsillar hypertrophy or exudate. Uvula midline. Airway patent. NECK: Trachea midline. Supple, nontender, no meningeal signs. Pacemaker pocket in left chest wall with no e.o infection. CARDIOVASCULAR: HS audible. RESPIRATORY: Clear to auscultation. Breath sounds equal bilaterally. GASTROINTESTINAL: Abdomen soft, non-tender, nondistended. Obese. MUSCULOSKELETAL: Extremities without clubbing, cyanosis, or edema. No joint tenderness, effusion, or edema noted. No calf tenderness. Negative Homans sign bilaterally. Nails with fungal infection. NEUROLOGICAL: Awake and alert. Cranial nerves II through XII intact. Motor and sensory grossly within normal limits. Five out of 5 muscle strength in all muscle groups. Normal speech. Psych cooperative IV line sites with no e.o infection. Assessment & Plan Remarks Sepsis present on admission. Proteus bacteremia source: ? GI vs H/o PUD with GI bleed earlier this year. 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 Elevated CRP. Afib Pacemaker and defibrillator in place. Recs Continue Ceftriaxone IV Repeat blood cultures x 2 ECHO today (to look for lead vegetation): no clear source of infection. If persistent bacteremia will need ANANT. [place].yolanda Larios. CT chest/Abd/pelvis with no abscess but transverse colon with mucosal break. Upon review of records patient had a colonoscopy in 2016 by which showed rollins diverticulosis. Follow cultures. Follow clinically. austin/w : he would like to cath pt during this admission given multiple episodes of Vtach and cardiac history. Pt had an abnormal stress test in past. may see pt as well. [place].yolanda Deluna: pt not ready for discharge anytime soon. Meets criteria clinically for continuing inpatient stay. above nimco Deluna. Also d.w pt and RN. Shaniqua Kumar MD Jan 21, 2017 15:12
--- NOTE | 2017-01-21 18:34 | ECHRPT ---
Indication: SEPSIS, POSS ENDOCARDITIS CONCLUSIONS BP: 147 / 73 HR: Rhythm: Sinus MEASUREMENTS (Male / Female) Normal Values Technical Quality:Fair 2D ECHO LV Diastolic Diameter PLAX 7.2 cm 4.2 - 5.9 / 3.9 - 5.3 cm LV Systolic Diameter PLAX 6.7 cm IVS Diastolic Thickness 1.0 cm 0.6 - 1.0 / 0.6 - 0.9 cm LVPW Diastolic Thickness 1.0 cm 0.6 - 1.0 / 0.6 - 0.9 cm LV Relative Wall Thickness 0.3 LVOT Diameter 2.1 cm Aortic Root Diameter 3.4 cm LA Systolic Diameter LX 4.5 cm 3.0 - 4.0 / 2.7 - 3.8 cm M-MODE AV Cusp Separation MM 2.2 cm DOPPLER AV Peak Velocity 117.0 cm/s AV Peak Gradient 5.5 mmHg AV Mean Gradient 3.0 mmHg AV Velocity Time Integral 22.1 cm LVOT Peak Velocity 83.5 cm/s LVOT Peak Gradient 2.8 mmHg LVOT Velocity Time Integral 14.9 cm AV Area Cont Eq vti 2.3 cm AV Area Cont Eq pk 2.5 cm Mitral E Point Velocity 88.4 cm/s Mitral A Point Velocity 53.8 cm/s Mitral E to A Ratio 1.6 LV E' Lateral Velocity 7.6 cm/s Mitral E to LV E' Lateral Ratio 11.6 LV E' Septal Velocity 4.5 cm/s Mitral E to LV E' Septal Ratio 19.7 TR Peak Velocity 319.0 cm/s TR Peak Gradient 40.7 mmHg Right Atrial Pressure 10.0 mmHg Pulmonary Artery Systolic Pressu 50.7 mmHg Right Ventricular Systolic Press 50.7 mmHg PV Peak Velocity 95.5 cm/s PV Peak Gradient 3.6 mmHg FINDINGS LEFT VENTRICLE Severely dilated left ventricle. The left ventricular systolic function is severely reduced with an estimated ejection fraction 25%. Global LV hypokinesis with posterior and proximal inferior akinesis. RIGHT VENTRICLE Normal right ventricular size and systolic function. LEFT ATRIUM The left atrial size is moderately dilated. RIGHT ATRIUM The right atrial size is moderately dilated. There is a pacemaker wire present in the right atrial cavity. ATRIAL SEPTUM Normal atrial septal thickness without atrial level shunting by limited color doppler interrogation. AORTA The aortic root and proximal ascending aorta are normal in size on limited imaging. MITRAL VALVE Mild mitral valve regurgitation. AORTIC VALVE Trileaflet aortic valve. No aortic valve stenosis or regurgitation. Mild aortic valve stenosis. TRICUSPID VALVE There is trace tricuspid valve regurgitation. The estimated pulmonary arterial pressure is 50.7 mmHg. ICD wires are present within the right ventricular cavity. PULMONARY VALVE Mild pulmonary valve regurgitation. VESSELS The inferior vena cava was not well visualized. PERICARDIUM No pericardial effusion. Kody Spaulding MD (Electronically Signed) Final Date:21 January 2017 18:33
[2017-01-21] MEDS: HEPARIN-D5W 25,000 U/250 ML 250 ML IV PRN (22:00)
[2017-01-21 22:10] LABS: APTT (PATIENT) 44.8 SEC (24.3-30.1)
[2017-01-21] MEDS: ATORVASTATIN 80 MG TAB PO SCH (22:31)
[2017-01-21] MEDS: cefTRIAXone INJ 2,000 MG in SODIUM CHLORIDE 0.9% INJ 100 ML IV SCH (22:32)
[2017-01-22] VITALS (25 sets, daily range): BP systolic 145–158; BP diastolic 57–79; PULSE 59–79; RESP 16; TEMP 97.8–98.7; O2SAT 94–96
[2017-01-22 06:20] LABS: APTT (PATIENT) 45.5 SEC (24.3-30.1)
[2017-01-22] MEDS: INSULIN ASPART SUPPLEMENTAL SCALE SQ SCH ×4 (08:25→20:14)
[2017-01-22] MEDS: POTASSIUM CHLORIDE 20 MEQ CONTROLLED RELEASE TAB PO SCH ×2 (08:29→20:14)
[2017-01-22] MEDS: levETIRAcetam 500 MG TAB PO SCH ×2 (08:29→20:14)
[2017-01-22] MEDS: SODIUM CHLORIDE 0.9% FLUSH 10 ML FLUSH IV FLUSH SCH ×2 (08:30→20:15)
[2017-01-22] MEDS: METOPROLOL SUCCINATE 50 MG EXTENDED RELEASE TAB PO SCH (08:30)
[2017-01-22] MEDS: FUROSEMIDE 40 MG TAB PO SCH (08:30)
[2017-01-22] MEDS: DILTIAZEM-CD 180 MG CAP ER PO SCH (08:30)
[2017-01-22] MEDS: DOCUSATE SODIUM 50 MG/SENNA 8.6 MG TAB PO SCH (08:30)
[2017-01-22] MEDS: PANTOPRAZOLE SOD 20 MG DELAYED RELEASE TAB PO SCH (08:30)
--- NOTE | 2017-01-22 12:54 | HHI.IDPN ---
Subjective Subjective Remarks is a 76 y/o CM with PMHx of CHF, CAD and A. fib anticoagulated on Xarelto. cardiac ablation in 2012 and 2016, and insulin-dependent diabetes mellitus. With this background patient presents to the emergency department after his defibrillator went off 13 times. The patient states that he was going to get out of bed this morning when he was shocked. He states he was shocked many times after that. Interrogation of his defibrillator revealed 13 shocks for V. fib. The patient also was febrile yesterday and has a leukocytosis to 20. Chest x-ray within normal limits. Urine pending. Lactic acid 7.5. On admission pt met criteria for sepsis (WBC 20, tachycardia). Sepsis workup was initiated. Blood cultures are now positive for Proteus mirabilis and ID is consulted for the same. Pertinent positives and negatives: reports seeing urology 1 week prior to admission, no procedures done, UA was negative, rectal exam performed. No antibiotics prior to admission. Positive fever Denies blurry vision, otorrhea, rhinorrhea Denies sore throat and cough No chest pain, no shortness of breath No abdominal pain Denies constipation/diarrhea/nausea/vomiting Denies muscle pain/weakness No rashes Overnight events reviewed. No fever No rash No diarrhea Undergoing ECHO in room. No CP or SOB. Antibiotics Ceftriaxone IV Lines Line sites with no e.o infection. Past Medical History reviewed Allergies: Coded Allergies: No Known Allergies (Verified Allergy, Unknown, 01/17/17) Objective . Vital Signs Date Time Temp Pulse Resp B/P (MAP) Pulse Ox O2 Delivery O2 Flow Rate FiO2 01/22/17 12:10 62 01/22/17 11:14 65 01/22/17 11:05 95 Room Air 01/22/17 11:04 98.0 61 16 158/79 (105) 95 01/22/17 10:11 72 01/22/17 09:00 62 01/22/17 08:00 97.8 63 16 158/79 (105) 95 01/22/17 08:00 95 Room Air 01/22/17 08:00 63 01/22/17 07:05 74 01/22/17 06:08 62 01/22/17 05:12 79 01/22/17 04:53 60 01/22/17 03:15 97.9 59 16 156/57 (90) 95 Automatic Cuff 01/22/17 03:15 95 Room Air 01/22/17 03:15 61 01/22/17 02:12 66 01/22/17 01:46 74 01/22/17 00:00 62 01/21/17 23:25 98.2 66 16 145/66 (92) 95 01/21/17 23:25 95 Room Air 01/21/17 23:00 70 01/21/17 22:00 64 01/21/17 21:00 72 01/21/17 20:50 96 01/21/17 20:20 72 01/21/17 20:20 98.0 72 16 154/81 (105) 95 01/21/17 20:20 95 Room Air 01/21/17 19:00 70 01/21/17 18:11 70 01/21/17 17:00 81 01/21/17 16:00 69 01/21/17 15:00 98.6 72 16 155/65 (95) 95 01/21/17 15:00 74 01/21/17 15:00 95 Room Air 01/21/17 14:13 73 01/21/17 13:00 66 . Laboratory Tests Test 01/21/17 05:59 White Blood Count 9.0 TH/MM3 Red Blood Count 3.66 MIL/MM3 Hemoglobin 11.4 GM/DL Hematocrit 33.3 % Mean Corpuscular Volume 91.0 FL Mean Corpuscular Hemoglobin 31.2 PG Mean Corpuscular Hemoglobin Concent 34.3 % Red Cell Distribution Width 16.3 % Platelet Count 86 TH/MM3 Mean Platelet Volume 8.4 FL Neutrophils (%) (Auto) 77.7 % Lymphocytes (%) (Auto) 10.2 % Monocytes (%) (Auto) 10.1 % Eosinophils (%) (Auto) 1.6 % Basophils (%) (Auto) 0.4 % Neutrophils # (Auto) 7.0 TH/MM3 Lymphocytes # (Auto) 0.9 TH/MM3 Monocytes # (Auto) 0.9 TH/MM3 Eosinophils # (Auto) 0.1 TH/MM3 Basophils # (Auto) 0.0 TH/MM3 CBC Comment AUTO DIFF Differential Total Cells Counted 100 Neutrophils % (Manual) 67 % Band Neutrophils % 11 % Lymphocytes % 14 % Monocytes % 4 % Eosinophils % 4 % Neutrophils # (Manual) 7.0 TH/MM3 Nucleated Red Blood Cells 1 /100 WBC Differential Comment FINAL DIFF MANUAL Platelet Estimate LOW Platelet Morphology Comment NORMAL Red Cell Morphology Comment NORMAL Laboratory Tests Test 01/20/17 17:11 01/20/17 20:17 01/21/17 05:59 C-Reactive Protein 14.00 MG/DL Blood Urea Nitrogen 20 MG/DL Creatinine 1.06 MG/DL Random Glucose 131 MG/DL Calcium Level 8.8 MG/DL Sodium Level 135 MEQ/L Potassium Level 3.9 MEQ/L Chloride Level 100 MEQ/L Carbon Dioxide Level 28.6 MEQ/L Anion Gap 6 MEQ/L Estimat Glomerular Filtration Rate 68 ML/MIN Free Thyroxine 1.53 NG/DL Thyroid Stimulating Hormone 3rd Gen 1.470 uIU/ML Microbiology Date/Time Source Procedure Growth Status 01/20/17 16:05 Blood Peripheral Aerobic Blood Culture - Preliminary NO GROWTH IN 2 DAYS Resulted 01/20/17 16:05 Blood Peripheral Anaerobic Blood Culture - Preliminary NO GROWTH IN 2 DAYS Resulted 01/20/17 16:00 Blood Peripheral Aerobic Blood Culture - Preliminary NO GROWTH IN 2 DAYS Resulted 01/20/17 16:00 Blood Peripheral Anaerobic Blood Culture - Preliminary NO GROWTH IN 2 DAYS Resulted Imaging Last Impressions Chest CT 01/20/17 0000 Signed Impressions: Service Date/Time: Saturday, January 21, 2017 00:38 - CONCLUSION: 1. Small bilateral effusions and bibasilar atelectasis 2. 5 mm nodule right middle lobe. Followup CT scan in 6 months is recommended. 3. 2 cm nodule right lobe of the thyroid. Ultrasound examination is recommended if clinically indicated. Ashutosh Read MD Abdomen/Pelvis CT 01/20/17 0000 Signed Impressions: Service Date/Time: Saturday, January 21, 2017 00:38 - CONCLUSION: 1. 4 mm distal right ureteral stone with mild hydronephrosis 2. 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 Diverticulosis without evidence of diverticulitis. Possible mucosal lesion of the transverse colon. Colonoscopy is recommended for further evaluation if clinically indicated. Ashutosh Read MD Chest X-Ray 01/17/17 [id number] Signed Impressions: Service Date/Time: Tuesday, January 17, 2017 19:11 - CONCLUSION: Stable cardiomegaly. Left subclavian bipolar pacer Franco Shore MD Physical Exam GENERAL: Obese, well-developed patient, in no apparent distress. SKIN: No rashes, ecchymoses or lesions. Cool and dry. HEAD: Atraumatic. Normocephalic. No temporal or scalp tenderness. EYES: Pupils equal round and reactive. Extraocular motions intact. No scleral icterus. No injection or drainage. ENT: Nose without bleeding, purulent drainage or septal hematoma. Throat without erythema, tonsillar hypertrophy or exudate. Uvula midline. Airway patent. NECK: Trachea midline. Supple, nontender, no meningeal signs. Pacemaker pocket in left chest wall with no e.o infection. CARDIOVASCULAR: HS audible. RESPIRATORY: Clear to auscultation. Breath sounds equal bilaterally. GASTROINTESTINAL: Abdomen soft, non-tender, nondistended. Obese. MUSCULOSKELETAL: Extremities without clubbing, cyanosis, or edema. No joint tenderness, effusion, or edema noted. No calf tenderness. Negative Homans sign bilaterally. Nails with fungal infection. NEUROLOGICAL: Awake and alert. Cranial nerves II through XII intact. Motor and sensory grossly within normal limits. Five out of 5 muscle strength in all muscle groups. Normal speech. Psych cooperative IV line sites with no e.o infection. Assessment & Plan Remarks Sepsis present on admission. Proteus bacteremia source: ? GI vs H/o PUD with GI bleed earlier this year. 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 Elevated CRP. Afib Pacemaker and defibrillator in place. Recs Continue Ceftriaxone IV Follow repeat blood cultures x 2 ECHO today with no e/o vegetations. If persistent bacteremia will need ANANT. [place].yolanda Larios. CT chest/Abd/pelvis with no abscess but transverse colon with mucosal break. Upon review of records patient had a colonoscopy in 2016 by which showed rollins diverticulosis. Follow cultures. Follow clinically. d/w : he would like to cath pt during this admission given multiple episodes of Vtach and cardiac history. Pt had an abnormal stress test in past. may see pt as well. nimco Deluna: pt not ready for discharge anytime soon. Meets criteria clinically for continuing inpatient stay. above nimco Deluna. Also xiangw pt and daughter in room. Shaniqua Kumar MD Jan 22, 2017 12:54
--- NOTE | 2017-01-22 15:10 | HHI.PR ---
Subjective Remarks Pt doing well. denies any CP/SOB/N/V States stools are soft and wonders if he needs scheduled stool softeners. Objective Vitals Vital Signs Date Time Temp Pulse Resp B/P (MAP) Pulse Ox O2 Delivery O2 Flow Rate FiO2 01/22/17 14:00 66 01/22/17 13:00 61 01/22/17 12:10 62 01/22/17 11:14 65 01/22/17 11:05 95 Room Air 01/22/17 11:04 98.0 61 16 158/79 (105) 95 01/22/17 10:11 72 01/22/17 09:00 62 01/22/17 08:00 97.8 63 16 158/79 (105) 95 01/22/17 08:00 95 Room Air 01/22/17 08:00 63 01/22/17 07:05 74 01/22/17 06:08 62 01/22/17 05:12 79 01/22/17 04:53 60 01/22/17 03:15 97.9 59 16 156/57 (90) 95 Automatic Cuff 01/22/17 03:15 95 Room Air 01/22/17 03:15 61 01/22/17 02:12 66 01/22/17 01:46 74 01/22/17 00:00 62 01/21/17 23:25 98.2 66 16 145/66 (92) 95 01/21/17 23:25 95 Room Air 01/21/17 23:00 70 01/21/17 22:00 64 01/21/17 21:00 72 01/21/17 20:50 96 01/21/17 20:20 72 01/21/17 20:20 98.0 72 16 154/81 (105) 95 01/21/17 20:20 95 Room Air 01/21/17 19:00 70 01/21/17 18:11 70 01/21/17 17:00 81 01/21/17 16:00 69 I/O 01/21/17 01/21/17 01/21/17 01/22/17 01/22/17 01/22/17 07:00 15:00 23:00 07:00 15:00 23:00 Intake Total 361 ml 960 ml 480 ml Output Total 1825 ml 1700 ml 1375 ml Balance -1464 ml -740 ml -895 ml Intake Oral 240 ml 960 ml 480 ml IV Total 121 ml Output Urine Total 1825 ml 1700 ml 1375 ml # Bowel Movements 1 1 0 Result Diagram: 01/21/17 0559 01/21/17 0559 Imaging Last Impressions Chest CT 01/20/17 0000 Signed Impressions: Service Date/Time: Saturday, January 21, 2017 00:38 - CONCLUSION: 1. Small bilateral effusions and bibasilar atelectasis 2. 5 mm nodule right middle lobe. Followup CT scan in 6 months is recommended. 3. 2 cm nodule right lobe of the thyroid. Ultrasound examination is recommended if clinically indicated. Ashutosh Read MD Abdomen/Pelvis CT 01/20/17 0000 Signed Impressions: Service Date/Time: Saturday, January 21, 2017 00:38 - CONCLUSION: 1. 4 mm distal right ureteral stone with mild hydronephrosis 2. 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 Diverticulosis without evidence of diverticulitis. Possible mucosal lesion of the transverse colon. Colonoscopy is recommended for further evaluation if clinically indicated. Ashutosh Read MD Chest X-Ray 01/17/17 1839 Signed Impressions: Service Date/Time: Tuesday, January 17, 2017 19:11 - CONCLUSION: Stable cardiomegaly. Left subclavian bipolar pacer Franco Shore MD Objective Remarks GEN: Well-developed, well-nourished patient. sitting on side of bed CV: Regular rate and rhythm without obvious murmurs LUNGS: Clear to auscultation bilaterally. Normal respiratory effort. No wheezes GI: Soft, nontender. EXT: trace edema in lower ext. NEURO/PSYCH: Afocal. Awake, alert. Appropriate insight and judgment. A/P Problem List: (1) Urinary tract infection ICD Code: N39.0 - Urinary tract infection, site not specified (2) Ventricular fibrillation ICD Code: I49.01 - Ventricular fibrillation; Z95.810 - Presence of automatic ( implantable) cardiac defibrillator Status: Acute (3) DM2 (diabetes mellitus, type 2) ICD Code: E11.9 - Type 2 diabetes mellitus without complications Status: Chronic (4) CAD (coronary artery disease) ICD Code: I25.10 - CAD (coronary artery disease) Status: Chronic (5) Chronic systolic congestive heart failure ICD Code: I50.22 - Chronic systolic congestive heart failure Status: Chronic (6) elevated troponin I rule out non-ST elevation, acute coronary syndrome Status: Acute Assessment and Plan 76-year-old male presents to the emergency department after his defibrillator went off 13 times for ventricular fibrillation. 1. Ventricular fibrillation Pacemaker interrogated, 13 defibrillations for V. fib Elevated cardiac enzymes. Cardiology following, appreciate assistance, pt was scheduled for cardiac cath however he is bacteremic growing proteus in his blood cx. ID following. Cardiac cath will be reschedule once cleared by ID. Heparin drip per protocol 2. CAD/CHF/A. fib Holding Xarelto Continue diltiazem 100 mg by mouth daily Holding Dofetilide 500mcg by mouth twice a day Nitroglycerin as needed Patient's casino floor person is Dr. Echavarria, Dr. Harrison following. 3. Bacteremia Blood cx growing proteus species repeat blood cx neg x 1 day. u/a neg. s/p cefepime but now on IV rocephin per ID recs. CT chest shows small B effusion and bibasilar atelectasis. 5mm nodule right middle lobe and recommendations are for f/u CT in 6 months. 2 cm nodule in right lobe of thyroid. TSH normal, Free T4 mildly elevated. u/s of the thyroid and further work-up to be done as an outpatient, pt notified and agreeable w plan. CT abd/pelvis: 4mm distal right ureteral stone w mild hydronephrosis. probable bilateral adrenal adenomas. diverticulosis without evidence of diverticulitis. Possible mucosal lesion of the transverse colon. Pt will need further eval via colonoscopy which can be done as an outpatient. Pt tells me that he follows w the [facility]. Pt was seen by Dr. Funez in 2016 per records here. Colonoscopy at the time showed diverticulosis and internal hemorrhoids, prep was subobtimal. Pt instructed to f/u w him regarding CT findings. Discussed w Dr. Kumar repeat blood cultures neg to date. PSA wnl 4. Insulin-dependent diabetes mellitus SSI Blood glucose checks per protocol and monitor. FEN Heart healthy diet/ADA 1999 Electrolytes: Monitor and replete when necessary No IV fluids at this time Anticoagulation with heparin drip and SCDs Discharge Planning Pt is bacteremic, cardiac cath on hold until clearance from ID. Shiela Frankel MD Jan 22, 2017 15:10
[2017-01-22] MEDS ORDERED: DOCUSATE SODIUM 50 MG/SENNA 8.6 MG TAB PO PRN (15:15)
[2017-01-22] MEDS: LISINOPRIL 10 MG TAB PO SCH (16:22)
--- NOTE | 2017-01-22 17:22 | PD.CARD.PN ---
Subjective Subjective Remarks No chest pain/SOB No fevers/chills Objective Medications Current Medications Medications (Trade) Dose Ordered Sig/Jaz Route Start Time Stop Time Status Last Admin (Lipitor) 80 mg HS PO 01/18/17 21:00 01/21/17 22:31 (Cardizem Cd) 180 mg DAILY PO 01/18/17 09:00 01/22/17 08:30 (Tikosyn) 500 mcg BID PO 01/18/17 09:00 Future Hold (Lasix) 40 mg DAILY PO 01/18/17 09:00 01/22/17 08:30 (Keppra) 1,000 mg BID PO 01/18/17 09:00 01/22/17 08:29 (Nitrostat Sl) 0.4 mg Q15M PRN SL 01/17/17 21:45 (KCl) 20 meq Q12HR PO 01/18/17 09:00 01/22/17 08:29 (Toprol Xl) 200 mg DAILY PO 01/18/17 09:00 01/22/17 08:30 (Protonix) 20 mg DAILY PO 01/18/17 09:00 01/22/17 08:30 (NS Flush) 2 ml UNSCH PRN IV FLUSH 01/17/17 21:45 (NS Flush) 2 ml BID IV FLUSH 01/18/17 09:00 01/22/17 08:30 (Tylenol) 650 mg Q4H PRN PO 01/17/17 21:45 (Zofran Inj) 4 mg Q6H PRN IVP 01/17/17 21:45 (Narcan Inj) 0.4 mg UNSCH PRN IV PUSH 01/17/17 21:45 (Milk Of Magnesia Liq) 30 ml Q12H PRN PO 01/17/17 21:45 (Dulcolax Supp) 10 mg DAILY PRN RECTAL 01/17/17 21:45 (Lactulose Liq) 30 ml DAILY PRN PO 01/17/17 21:45 Sodium Chloride 1,000 ml @ 65 mls/hr [id number] IV 01/17/17 22:00 Future Hold 01/17/17 22:12 (Heparin Inj) 5,000 units UNSCH PRN IV PUSH 01/18/17 05:15 (Heparin Inj) 2,500 units UNSCH PRN IV PUSH 01/18/17 05:15 01/21/17 15:08 Heparin Sodium/ Dextrose 250 ml @ 10 mls/hr TITRATE PRN IV 01/17/17 23:15 01/21/17 22:00 Sodium Chloride 500 ml @ 500 mls/hr BOLUS PRN IV 01/18/17 01:00 01/18/17 01:40 (D50w (Vial) Inj) 50 ml UNSCH PRN IV PUSH 01/18/17 09:00 (Glucagon Inj) 1 mg UNSCH PRN OTHER 01/18/17 09:00 (NovoLOG SUPPLEMENTAL SCALE) 1 ACHS SLIDING SCALE SQ 01/18/17 12:00 01/22/17 16:57 Ceftriaxone Sodium 2000 mg/ Sodium Chloride 100 ml @ 200 mls/hr Q24H IV 01/20/17 21:00 01/21/17 22:32 (Prinivil) 10 mg DAILY PO 01/22/17 15:30 01/22/17 16:22 (Ingrid-Colace) 1 tab BID PRN PO 01/22/17 15:15 Vital Signs / I&O Vital Signs Date Time Temp Pulse Resp B/P (MAP) Pulse Ox O2 Delivery O2 Flow Rate FiO2 01/22/17 16:05 63 01/22/17 15:00 63 01/22/17 15:00 98.7 62 16 145/66 (92) 96 01/22/17 15:00 96 Room Air 01/22/17 14:00 66 01/22/17 13:00 61 01/22/17 12:10 62 01/22/17 11:14 65 01/22/17 11:05 95 Room Air 01/22/17 11:04 98.0 61 16 158/79 (105) 95 01/22/17 10:11 72 01/22/17 09:00 62 01/22/17 08:00 97.8 63 16 158/79 (105) 95 01/22/17 08:00 95 Room Air 01/22/17 08:00 63 01/22/17 07:05 74 01/22/17 06:08 62 01/22/17 05:12 79 01/22/17 04:53 60 01/22/17 03:15 97.9 59 16 156/57 (90) 95 Automatic Cuff 01/22/17 03:15 95 Room Air 01/22/17 03:15 61 01/22/17 02:12 66 01/22/17 01:46 74 01/22/17 00:00 62 01/21/17 23:25 98.2 66 16 145/66 (92) 95 01/21/17 23:25 95 Room Air 01/21/17 23:00 70 01/21/17 22:00 64 01/21/17 21:00 72 01/21/17 20:50 96 01/21/17 20:20 72 01/21/17 20:20 98.0 72 16 154/81 (105) 95 01/21/17 20:20 95 Room Air 01/21/17 19:00 70 01/21/17 18:11 70 I/O 01/21/17 01/21/17 01/21/17 01/22/17 01/22/17 01/22/17 07:00 15:00 23:00 07:00 15:00 23:00 Intake Total 361 ml 960 ml 480 ml Output Total 1825 ml 1700 ml 1375 ml Balance -1464 ml -740 ml -895 ml Intake Oral 240 ml 960 ml 480 ml IV Total 121 ml Output Urine Total 1825 ml 1700 ml 1375 ml # Bowel Movements 1 1 0 Physical Exam GENERAL: NAD, AAOx3 SKIN: Warm and dry. HEAD: Atraumatic. Normocephalic. EYES: Pupils equal and round. No scleral icterus. No injection or drainage. ENT: No nasal bleeding or discharge. Mucous membranes pink and moist. NECK: Trachea midline. No JVD. CARDIOVASCULAR: Regular rate and rhythm. RESPIRATORY: No accessory muscle use. Clear to auscultation. Breath sounds equal bilaterally. GASTROINTESTINAL: Abdomen soft, non-tender, nondistended. Hepatic and splenic margins not palpable. MUSCULOSKELETAL: Extremities without clubbing, cyanosis, or edema. No obvious deformities. NEUROLOGICAL: Awake and alert. No obvious cranial nerve deficits. Motor grossly within normal limits. Five out of 5 muscle strength in the arms and legs. Normal speech. PSYCHIATRIC: Appropriate mood and affect; insight and judgment normal. Laboratory Laboratory Tests Test 01/21/17 21:45 01/22/17 05:23 Activated Partial Thromboplast Time 44.8 SEC 45.5 SEC Assessment and Plan Problem List: (1) Bacteremia ICD Codes: R78.81 - Bacteremia (2) AICD discharge ICD Codes: Z45.02 - Encounter for adjustment and management of automatic implantable cardiac defibrillator (3) Elevated troponin ICD Codes: R74.8 - Abnormal levels of other serum enzymes Status: Acute (4) Cardiomyopathy with implantable cardioverter-defibrillator ICD Codes: I42.9 - Cardiomyopathy, unspecified; Z95.810 - Presence of automatic (implantable) cardiac defibrillator Status: Acute (5) Urinary tract infection ICD Codes: N39.0 - Urinary tract infection, site not specified (6) DM2 (diabetes mellitus, type 2) ICD Codes: E11.9 - Type 2 diabetes mellitus without complications Status: Chronic Assessment and Plan 1) AICD firing for Vfib For now medical management Will need ischemic evaluation, will hold off until bacteremia clears, discussed with ID 2) UTI 3) Sepsis Blood cultures positive for gram negative rods Lactic acidosis 4) Thrombocytopenia Continue to follow, watch with heparin Possible due to sepsis Platelets mildly better 5) Afib Will plan to hold Tikosyn for now due to ventricular arrhythmias 6) QTc mildly prolonged EGKs in the past have had a similar QTc length without problem 7) Cardiac catheterization on hold due to sepsis/bacteremia Sid Harrison DO Jan 22, 2017 17:22
[2017-01-22] MEDS: ATORVASTATIN 80 MG TAB PO SCH (20:14)
[2017-01-22] MEDS: cefTRIAXone INJ 2,000 MG in SODIUM CHLORIDE 0.9% INJ 100 ML IV SCH (20:15)
--- NOTE | 2017-01-22 20:21 | MB ---
cc: CALVIN FROST HANSCY M.D. DATE OF CONSULTATION 01/22/17 Electrophysiology consult. REASON FOR CONSULTATION Defibrillatory shock. HISTORY OF PRESENT ILLNESS Mr. Bolton is a 76-year-old gentleman with history of coronary artery disease, atrial fibrillation, previous defibrillator implanted for sudden prevention. The gentleman is on Tikosyn. He was not feeling well for days and last ___ tried to stand from his bed, feeling dizzy and received recurrent defibrillatory shock. He was admitted. He was followed by Dr. Frost, apparently there is a possible bacteremia, white blood cell was high. The patient's condition improved. Tikosyn was DC. I was consulted for further evaluation and management. The chart was reviewed. The patient was evaluated. ALLERGIES None. SOCIAL HISTORY Negative for smoking and drinking. FAMILY HISTORY Noncontributory to his current medical condition. MEDICATIONS The patient is on: 1. Ceftriaxone. 2. He is on Lipitor 80 milligrams a day. 3. He is on Cardizem CD. 4. He is on Tikosyn, that was DCd. 5. Lasix. 6. Keppra. 7. Lisinopril. REVIEW OF SYSTEMS He refers feeling better. No chest pains, chest discomfort. No fever. No palpitation. No defibrillatory shock. PHYSICAL EXAMINATION GENERAL: Alert, fully oriented, pleasant as usual. VITAL SIGNS: Blood pressure 145/66, pulse 63, respiratory rate 18. LUNGS: Ventilated. CARDIOVASCULAR: S1-S2, no gallop or murmur. ABDOMEN: Soft. No mass. No bruits. EXTREMITIES: No edema. CARDIOLOGY STUDIES Electrocardiogram shows sinus rhythm, diffuse ST changes. LABORATORY DATA Hemoglobin is 11.4, white blood cell 9.0, creatinine 1.06, potassium 3.9. ASSESSMENT AND RECOMMENDATIONS Mr. Bolton is currently stable. No further tachyarrhythmia observed. He is back into sinus rhythm. I will DC the Tikosyn. Because of his flu-like syndrome he may either have some electrolyte imbalance that lead to ventricular fibrillation. Tikosyn can be DCd. This is less likely ischemic cardiomyopathy. Interrogation of the defibrillator showed appropriate defibrillatory shock. The device is well-functioning. At this point my recommendation is continue with current management. Tikosyn could be DCd. Blood pressure needs to be better controlled. If the patient back again in atrial fibrillation, atrial tachycardia the best approach is AV node modification and upgrade the defibrillator to a biventricular pacer defibrillator. This is an ___ was discussed with him in the past. I will closely monitor him during hospitalization. I will discuss again the case with Dr. Frost. Leonel Myrick MD HS/EO /6:25 PM /8:08 PM
[2017-01-22] MEDS: HEPARIN-D5W 25,000 U/250 ML 250 ML IV PRN (21:40)
[2017-01-23] VITALS (21 sets, daily range): BP systolic 129–163; BP diastolic 56–78; PULSE 60–87; RESP 18–20; TEMP 98.6–98.8; O2SAT 95–97
[2017-01-23 07:08] LABS: AUTOMATED NEUTROPHIL # 8.1 TH/MM3 (1.8-7.7); BASOPHIL # 0.1 TH/MM3 (0-0.2); BASOPHIL % 0.6 % (0.0-2.0); EOSINOPHIL # 0.2 TH/MM3 (0-0.4); EOSINOPHIL % 1.6 % (0.0-4.0); HEMATOCRIT 35.3 % (39.0-51.0); HEMO FLAGS DIFF FINAL; LYMPHOCYTE # 1.2 TH/MM3 (1.0-4.8); MEAN CELL VOLUME 92.2 FL (80.0-100.0); MEAN CORPUSCULAR HEMOGLOBIN 30.6 PG (27.0-34.0); MEAN CORPUSCULAR HGB CONC 33.1 % (32.0-36.0); MONO % 9.4 % (0.0-8.0); NEUT % 77.4 % (16.0-70.0); PLATELET COUNT 128 TH/MM3 (150-450); RED BLOOD COUNT 3.83 MIL/MM3 (4.50-5.90); RED CELL DISTRIBUTION WIDTH 16.2 % (11.6-17.2); WHITE BLOOD COUNT 10.5 TH/MM3 (4.0-11.0)
[2017-01-23 07:25] LABS: BICARBONATE 29.4 MEQ/L (21.0-32.0); POTASSIUM 4.2 MEQ/L (3.5-5.1)
[2017-01-23] MEDS: INSULIN ASPART SUPPLEMENTAL SCALE SQ SCH ×4 (08:00→20:23)
[2017-01-23] MEDS: SODIUM CHLORIDE 0.9% FLUSH 10 ML FLUSH IV FLUSH SCH ×2 (09:00→20:23)
--- NOTE | 2017-01-23 09:37 | HHI.PR ---
Subjective Remarks Follow-up for V. fib/bacteremia No overnight events, no chest pain, denies shortness of breath, no fever or chills, eating all right, blood pressure stable. Discussed with cardiology. Objective Vitals Vital Signs Date Time Temp Pulse Resp B/P (MAP) Pulse Ox O2 Delivery O2 Flow Rate FiO2 01/23/17 06:00 60 01/23/17 05:17 64 01/23/17 04:01 62 01/23/17 03:57 65 01/23/17 03:50 98.8 62 129/56 (80) 95 01/23/17 03:13 Room Air 01/23/17 02:57 61 01/23/17 01:04 60 01/23/17 00:06 98.6 60 129/67 (87) 96 01/23/17 00:00 62 01/22/17 23:26 Room Air 2.00 01/22/17 23:00 69 01/22/17 22:00 60 01/22/17 21:00 62 01/22/17 20:00 66 01/22/17 20:00 64 149/73 (98) 94 01/22/17 20:00 Room Air 01/22/17 19:00 63 01/22/17 18:00 61 01/22/17 17:00 69 01/22/17 16:05 63 01/22/17 15:00 63 01/22/17 15:00 98.7 62 16 145/66 (92) 96 01/22/17 15:00 96 Room Air 01/22/17 14:00 66 01/22/17 13:00 61 01/22/17 12:10 62 01/22/17 11:14 65 01/22/17 11:05 95 Room Air 01/22/17 11:04 98.0 61 16 158/79 (105) 95 01/22/17 10:11 72 I/O 01/22/17 01/22/17 01/22/17 01/23/17 01/23/17 01/23/17 07:00 15:00 23:00 07:00 15:00 23:00 Intake Total 480 ml 680 ml 240 ml Output Total 1375 ml 950 ml 1050 ml Balance -895 ml -270 ml -810 ml Intake Oral 480 ml 680 ml 240 ml Output Urine Total 1375 ml 950 ml 1050 ml # Bowel Movements 0 3 Result Diagram: 01/23/17 0545 01/23/17 0545 Imaging Last Impressions Chest CT 01/20/17 0000 Signed Impressions: Service Date/Time: Saturday, January 21, 2017 00:38 - CONCLUSION: 1. Small bilateral effusions and bibasilar atelectasis 2. 5 mm nodule right middle lobe. Followup CT scan in 6 months is recommended. 3. 2 cm nodule right lobe of the thyroid. Ultrasound examination is recommended if clinically indicated. Ashutosh Read MD Abdomen/Pelvis CT 01/20/17 0000 Signed Impressions: Service Date/Time: Saturday, January 21, 2017 00:38 - CONCLUSION: 1. 4 mm distal right ureteral stone with mild hydronephrosis 2. 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 Diverticulosis without evidence of diverticulitis. Possible mucosal lesion of the transverse colon. Colonoscopy is recommended for further evaluation if clinically indicated. Ashutosh Read MD Chest X-Ray 01/17/17 1839 Signed Impressions: Service Date/Time: Tuesday, January 17, 2017 19:11 - CONCLUSION: Stable cardiomegaly. Left subclavian bipolar pacer Franco Shore MD Objective Remarks GEN: Not in distress, sitting in bed. CV: Regular rate and rhythm without obvious murmurs LUNGS: Clear to auscultation bilaterally. Normal respiratory effort. No wheezes GI: Soft, nontender. EXT: trace edema in lower ext. NEURO/PSYCH: Afocal. Awake, alert, oriented 3. No focal deficits A/P Problem List: (1) Urinary tract infection ICD Code: N39.0 - Urinary tract infection, site not specified (2) Ventricular fibrillation ICD Code: I49.01 - Ventricular fibrillation; Z95.810 - Presence of automatic ( implantable) cardiac defibrillator Status: Acute (3) DM2 (diabetes mellitus, type 2) ICD Code: E11.9 - Type 2 diabetes mellitus without complications Status: Chronic (4) CAD (coronary artery disease) ICD Code: I25.10 - CAD (coronary artery disease) Status: Chronic (5) Chronic systolic congestive heart failure ICD Code: I50.22 - Chronic systolic congestive heart failure Status: Chronic (6) elevated troponin I rule out non-ST elevation, acute coronary syndrome Status: Acute Assessment and Plan 76-year-old male presents to the emergency department after his defibrillator went off 13 times for ventricular fibrillation. Ventricular fibrillation Pacemaker interrogated, 13 defibrillations for V. fib, Elevated cardiac enzymes. Appropriate shocks given. Cardiology following, Dr. Stallings also saw the patient. Stop Tikosyn, might need AV node modification if with recurrence of arrhythmia. Will need cardiac catheterization once cleared by infectious disease because of bacteremia. Continue heparin, possible cardiac catheterization tomorrow or Friday, discussed with Dr. Harrison - Continue Lasix, lisinopril, metoprolol, Cardizem. CAD/CHF/A. fib Holding Xarelto Continue metoprolol, lisinopril, Lasix,, Cardizem continue heparin. Proteus bacteremia- versus GI source, infectious disease is following, continue ceftriaxone, repeat blood cultures from 01/20/17 negative so far, echocardiogram unremarkable, no vegetation, leukocytosis resolved. We'll discuss with infectious disease. Etiology unclear, CT chest shows small B effusion and bibasilar atelectasis. 5mm nodule right middle lobe and recommendations are for f/u CT in 6 months. 2 cm nodule in right lobe of thyroid. TSH normal, Free T4 mildly elevated. u/s of the thyroid and further work-up to be done as an outpatient, pt notified and agreeable w plan. CT abd/pelvis: 4mm distal right ureteral stone w mild hydronephrosis. probable bilateral adrenal adenomas. diverticulosis without evidence of diverticulitis. Possible mucosal lesion of the transverse colon. Pt will need further eval via colonoscopy which can be done as an outpatient. Pt tells me that he follows w the [facility]. Pt was seen by Dr. Funez in 2016 per records here. Colonoscopy at the time showed diverticulosis and internal hemorrhoids, prep was subobtimal. Pt instructed to f/u w him regarding CT findings. PSA normal Pulmonary nodules-repeat CT scan 6 months, patient aware. Insulin-dependent diabetes mellitus- SSI, Accu-Checks, glipizide on hold [facility] Heart healthy diet/ADA 1999 Electrolytes: Monitor and replete when necessary No IV fluids at this time Anticoagulation with heparin drip and SCDs Discharge Planning Discharged once cleared by cardiology after cardiac catheterization tomorrow or Friday Jose Campos MD Jan 23, 2017 09:37
[2017-01-23] MEDS: DILTIAZEM-CD 180 MG CAP ER PO SCH (09:42)
[2017-01-23] MEDS: FUROSEMIDE 40 MG TAB PO SCH (09:42)
[2017-01-23] MEDS: LISINOPRIL 10 MG TAB PO SCH (09:42)
[2017-01-23] MEDS: levETIRAcetam 500 MG TAB PO SCH ×2 (09:42→20:22)
[2017-01-23] MEDS: METOPROLOL SUCCINATE 50 MG EXTENDED RELEASE TAB PO SCH (09:43)
[2017-01-23] MEDS: POTASSIUM CHLORIDE 20 MEQ CONTROLLED RELEASE TAB PO SCH ×2 (09:43→20:22)
[2017-01-23] MEDS: PANTOPRAZOLE SOD 20 MG DELAYED RELEASE TAB PO SCH (09:43)
--- NOTE | 2017-01-23 10:43 | PD.CARD.PN ---
Subjective Subjective Remarks No chest pain/SOB No fevers/chills Objective Medications Current Medications Medications (Trade) Dose Ordered Sig/Jaz Route Start Time Stop Time Status Last Admin (Lipitor) 80 mg HS PO 01/18/17 21:00 01/22/17 20:14 (Cardizem Cd) 180 mg DAILY PO 01/18/17 09:00 01/23/17 09:42 (Tikosyn) 500 mcg BID PO 01/18/17 09:00 Future Hold (Lasix) 40 mg DAILY PO 01/18/17 09:00 01/23/17 09:42 (Keppra) 1,000 mg BID PO 01/18/17 09:00 01/23/17 09:42 (Nitrostat Sl) 0.4 mg Q15M PRN SL 01/17/17 21:45 (KCl) 20 meq Q12HR PO 01/18/17 09:00 01/23/17 09:43 (Toprol Xl) 200 mg DAILY PO 01/18/17 09:00 01/23/17 09:43 (Protonix) 20 mg DAILY PO 01/18/17 09:00 01/23/17 09:43 (NS Flush) 2 ml UNSCH PRN IV FLUSH 01/17/17 21:45 (NS Flush) 2 ml BID IV FLUSH 01/18/17 09:00 01/22/17 20:15 (Tylenol) 650 mg Q4H PRN PO 01/17/17 21:45 (Zofran Inj) 4 mg Q6H PRN IVP 01/17/17 21:45 (Narcan Inj) 0.4 mg UNSCH PRN IV PUSH 01/17/17 21:45 (Milk Of Magnesia Liq) 30 ml Q12H PRN PO 01/17/17 21:45 (Dulcolax Supp) 10 mg DAILY PRN RECTAL 01/17/17 21:45 (Lactulose Liq) 30 ml DAILY PRN PO 01/17/17 21:45 Sodium Chloride 1,000 ml @ 65 mls/hr [id number] IV 01/17/17 22:00 Future Hold 01/17/17 22:12 (Heparin Inj) 5,000 units UNSCH PRN IV PUSH 01/18/17 05:15 (Heparin Inj) 2,500 units UNSCH PRN IV PUSH 01/18/17 05:15 01/21/17 15:08 Heparin Sodium/ Dextrose 250 ml @ 10 mls/hr TITRATE PRN IV 01/17/17 23:15 01/22/17 21:40 Sodium Chloride 500 ml @ 500 mls/hr BOLUS PRN IV 01/18/17 01:00 01/18/17 01:40 (D50w (Vial) Inj) 50 ml UNSCH PRN IV PUSH 01/18/17 09:00 (Glucagon Inj) 1 mg UNSCH PRN OTHER 01/18/17 09:00 (NovoLOG SUPPLEMENTAL SCALE) 1 ACHS SLIDING SCALE SQ 01/18/17 12:00 01/23/17 08:00 Ceftriaxone Sodium 2000 mg/ Sodium Chloride 100 ml @ 200 mls/hr Q24H IV 01/20/17 21:00 01/22/17 20:15 (Prinivil) 10 mg DAILY PO 01/22/17 15:30 01/23/17 09:42 (Ingrid-Colace) 1 tab BID PRN PO 01/22/17 15:15 Vital Signs / I&O Vital Signs Date Time Temp Pulse Resp B/P (MAP) Pulse Ox O2 Delivery O2 Flow Rate FiO2 01/23/17 09:43 74 18 163/75 (104) 96 01/23/17 06:00 60 01/23/17 05:17 64 01/23/17 04:01 62 01/23/17 03:57 65 01/23/17 03:50 98.8 62 129/56 (80) 95 01/23/17 03:13 Room Air 01/23/17 02:57 61 01/23/17 01:04 60 01/23/17 00:06 98.6 60 129/67 (87) 96 01/23/17 00:00 62 01/22/17 23:26 Room Air 2.00 01/22/17 23:00 69 01/22/17 22:00 60 01/22/17 21:00 62 01/22/17 20:00 66 01/22/17 20:00 64 149/73 (98) 94 01/22/17 20:00 Room Air 01/22/17 19:00 63 01/22/17 18:00 61 01/22/17 17:00 69 01/22/17 16:05 63 01/22/17 15:00 63 01/22/17 15:00 98.7 62 16 145/66 (92) 96 01/22/17 15:00 96 Room Air 01/22/17 14:00 66 01/22/17 13:00 61 01/22/17 12:10 62 01/22/17 11:14 65 01/22/17 11:05 95 Room Air 01/22/17 11:04 98.0 61 16 158/79 (105) 95 I/O 01/22/17 01/22/17 01/22/17 01/23/17 01/23/17 01/23/17 07:00 15:00 23:00 07:00 15:00 23:00 Intake Total 480 ml 680 ml 240 ml Output Total 1375 ml 950 ml 1050 ml Balance -895 ml -270 ml -810 ml Intake Oral 480 ml 680 ml 240 ml Output Urine Total 1375 ml 950 ml 1050 ml # Bowel Movements 0 3 Physical Exam GENERAL: NAD, AAOx3 SKIN: Warm and dry. HEAD: Atraumatic. Normocephalic. EYES: Pupils equal and round. No scleral icterus. No injection or drainage. ENT: No nasal bleeding or discharge. Mucous membranes pink and moist. NECK: Trachea midline. No JVD. CARDIOVASCULAR: Regular rate and rhythm. RESPIRATORY: No accessory muscle use. Clear to auscultation. Breath sounds equal bilaterally. GASTROINTESTINAL: Abdomen soft, non-tender, nondistended. Hepatic and splenic margins not palpable. MUSCULOSKELETAL: Extremities without clubbing, cyanosis, or edema. No obvious deformities. NEUROLOGICAL: Awake and alert. No obvious cranial nerve deficits. Motor grossly within normal limits. Five out of 5 muscle strength in the arms and legs. Normal speech. PSYCHIATRIC: Appropriate mood and affect; insight and judgment normal. Laboratory Laboratory Tests Test 01/23/17 05:45 White Blood Count 10.5 TH/MM3 Red Blood Count 3.83 MIL/MM3 Hemoglobin 11.7 GM/DL Hematocrit 35.3 % Mean Corpuscular Volume 92.2 FL Mean Corpuscular Hemoglobin 30.6 PG Mean Corpuscular Hemoglobin Concent 33.1 % Red Cell Distribution Width 16.2 % Platelet Count 128 TH/MM3 Mean Platelet Volume 8.8 FL Neutrophils (%) (Auto) 77.4 % Lymphocytes (%) (Auto) 11.0 % Monocytes (%) (Auto) 9.4 % Eosinophils (%) (Auto) 1.6 % Basophils (%) (Auto) 0.6 % Neutrophils # (Auto) 8.1 TH/MM3 Lymphocytes # (Auto) 1.2 TH/MM3 Monocytes # (Auto) 1.0 TH/MM3 Eosinophils # (Auto) 0.2 TH/MM3 Basophils # (Auto) 0.1 TH/MM3 CBC Comment DIFF FINAL Differential Comment Activated Partial Thromboplast Time 46.0 SEC Blood Urea Nitrogen 18 MG/DL Creatinine 1.21 MG/DL Random Glucose 156 MG/DL Calcium Level 9.3 MG/DL Sodium Level 138 MEQ/L Potassium Level 4.2 MEQ/L Chloride Level 100 MEQ/L Carbon Dioxide Level 29.4 MEQ/L Anion Gap 9 MEQ/L Estimat Glomerular Filtration Rate 58 ML/MIN Assessment and Plan Problem List: (1) Bacteremia ICD Codes: R78.81 - Bacteremia (2) AICD discharge ICD Codes: Z45.02 - Encounter for adjustment and management of automatic implantable cardiac defibrillator (3) Elevated troponin ICD Codes: R74.8 - Abnormal levels of other serum enzymes Status: Acute (4) Cardiomyopathy with implantable cardioverter-defibrillator ICD Codes: I42.9 - Cardiomyopathy, unspecified; Z95.810 - Presence of automatic (implantable) cardiac defibrillator Status: Acute (5) Urinary tract infection ICD Codes: N39.0 - Urinary tract infection, site not specified (6) DM2 (diabetes mellitus, type 2) ICD Codes: E11.9 - Type 2 diabetes mellitus without complications Status: Chronic Assessment and Plan 1) AICD firing for Vfib For now medical management Will need ischemic evaluation, will hold off until bacteremia clears, discussed with ID 2) UTI 3) Sepsis Blood cultures positive for gram negative rods Lactic acidosis 4) Thrombocytopenia Continue to follow, watch with heparin Possible due to sepsis Platelets back towards normal 5) Afib Will plan to hold Tikosyn for now due to ventricular arrhythmias Discussed with Dr. Myrick 6) QTc mildly prolonged EGKs in the past have had a similar QTc length without problem 7) Cardiac catheterization on hold due to sepsis/bacteremia Will plan for Friday or Friday depending on ID and scheduling Sid Harrison DO Jan 23, 2017 10:43
[2017-01-23] MEDS: ATORVASTATIN 80 MG TAB PO SCH (20:22)
[2017-01-23] MEDS: cefTRIAXone INJ 2,000 MG in SODIUM CHLORIDE 0.9% INJ 100 ML IV SCH (20:22)
[2017-01-24] VITALS (27 sets, daily range): BP systolic 121–178; BP diastolic 56–90; PULSE 59–68; RESP 14–19; TEMP 97.5–98.9; O2SAT 94–99
[2017-01-24 05:46] LABS: APTT (PATIENT) 51.4 SEC (24.3-30.1)
--- NOTE | 2017-01-24 07:30 | HHI.PR ---
Subjective Remarks In the bed appears in nad. No chest pain overnight,. No fever ro chills. Feels tired. No n/v/d/c. He is NPO plan for cardiac cath by Dr Wade Objective Vitals Vital Signs Date Time Temp Pulse Resp B/P (MAP) Pulse Ox O2 Delivery O2 Flow Rate FiO2 01/24/17 06:00 60 01/24/17 05:00 68 01/24/17 04:56 97.9 59 153/79 (103) 94 01/24/17 04:00 68 01/24/17 03:41 Room Air 2.00 100 01/24/17 03:00 64 01/24/17 02:00 60 01/24/17 01:00 62 01/24/17 00:00 60 01/24/17 00:00 97.9 60 121/56 (77) 94 01/23/17 23:50 Room Air 2.00 100 01/23/17 23:00 62 01/23/17 22:00 60 01/23/17 21:00 60 01/23/17 20:00 66 01/23/17 19:17 Room Air 01/23/17 19:00 98.8 62 139/78 (98) 96 01/23/17 19:00 60 01/23/17 12:21 Room Air 01/23/17 11:23 87 20 153/71 (98) 97 01/23/17 11:00 60 01/23/17 10:00 66 01/23/17 09:43 74 18 163/75 (104) 96 01/23/17 09:00 66 01/23/17 08:00 66 01/23/17 08:00 Room Air I/O 01/23/17 01/23/17 01/23/17 01/24/17 01/24/17 01/24/17 07:00 15:00 23:00 07:00 15:00 23:00 Intake Total 240 ml 720 ml 100 ml 480 ml Output Total 1050 ml 450 ml 450 ml Balance -810 ml 270 ml 100 ml 30 ml Intake Oral 240 ml 720 ml 480 ml IV Total 100 ml Output Urine Total 1050 ml 450 ml 450 ml Result Diagram: 01/23/17 0545 01/23/17 0545 Imaging Last Impressions Chest CT 01/20/17 0000 Signed Impressions: Service Date/Time: Saturday, January 21, 2017 00:38 - CONCLUSION: 1. Small bilateral effusions and bibasilar atelectasis 2. 5 mm nodule right middle lobe. Followup CT scan in 6 months is recommended. 3. 2 cm nodule right lobe of the thyroid. Ultrasound examination is recommended if clinically indicated. Ashutosh Read MD Abdomen/Pelvis CT 01/20/17 0000 Signed Impressions: Service Date/Time: Saturday, January 21, 2017 00:38 - CONCLUSION: 1. 4 mm distal right ureteral stone with mild hydronephrosis 2. 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 Diverticulosis without evidence of diverticulitis. Possible mucosal lesion of the transverse colon. Colonoscopy is recommended for further evaluation if clinically indicated. Ashutosh Read MD Chest X-Ray 01/17/17 1839 Signed Impressions: Service Date/Time: Tuesday, January 17, 2017 19:11 - CONCLUSION: Stable cardiomegaly. Left subclavian bipolar pacer Franco Shore MD Objective Remarks GENERAL: Elderly male, well nourished well developed, appeares in nad. CARDIOVASCULAR: Regular rate and rhythm. RESPIRATORY: No accessory muscle use. Clear to auscultation. Breath sounds equal bilaterally. GASTROINTESTINAL: Abdomen soft, non-tender, nondistended. Hepatic and splenic margins not palpable. MUSCULOSKELETAL: Extremities without clubbing, cyanosis, or edema. No obvious deformities. NEUROLOGICAL: Awake and alert. No obvious cranial nerve deficits. Motor grossly within normal limits. Five out of 5 muscle strength in the arms and legs. Normal speech. PSYCHIATRIC: Appropriate mood and affect; insight and judgment normal. A/P Problem List: (1) Urinary tract infection ICD Code: N39.0 - Urinary tract infection, site not specified (2) Ventricular fibrillation ICD Code: I49.01 - Ventricular fibrillation; Z95.810 - Presence of automatic ( implantable) cardiac defibrillator Status: Acute (3) DM2 (diabetes mellitus, type 2) ICD Code: E11.9 - Type 2 diabetes mellitus without complications Status: Chronic (4) CAD (coronary artery disease) ICD Code: I25.10 - CAD (coronary artery disease) Status: Chronic (5) Chronic systolic congestive heart failure ICD Code: I50.22 - Chronic systolic congestive heart failure Status: Chronic (6) elevated troponin I rule out non-ST elevation, acute coronary syndrome Status: Acute Assessment and Plan 76-year-old male presents to the emergency department after his defibrillator went off 13 times for ventricular fibrillation. Ventricular fibrillation Pacemaker interrogated, 13 defibrillations for V. fib, Elevated cardiac enzymes. Appropriate shocks given. Cardiology following, Dr. Stallings also saw the patient. Stop Tikosyn, might need AV node modification if with recurrence of arrhythmia. Plan for cardiac catheterization . - Continue Lasix, lisinopril, metoprolol, Cardizem. Heparin per cardio, as patient will go for cardiac cath CAD/CHF/A. fib Holding Xarelto Continue metoprolol, lisinopril, Lasix,, Cardizem continue heparin. Proteus bacteremia- versus GI source, infectious disease is following, continue ceftriaxone, repeat blood cultures from 01/20/17 negative so far, echocardiogram unremarkable, no vegetation, leukocytosis resolved. We'll discuss with infectious disease. Etiology unclear, CT chest shows small B effusion and bibasilar atelectasis. 5mm nodule right middle lobe and recommendations are for f/u CT in 6 months. 2 cm nodule in right lobe of thyroid. TSH normal, Free T4 mildly elevated. u/s of the thyroid and further work-up to be done as an outpatient, pt notified and agreeable w plan. CT abd/pelvis: 4mm distal right ureteral stone w mild hydronephrosis. probable bilateral adrenal adenomas. diverticulosis without evidence of diverticulitis. Possible mucosal lesion of the transverse colon. Pt will need further eval via colonoscopy which can be done as an outpatient. Pt tells me that he follows w the [facility]. Pt was seen by Dr. Funez in 2016 per records here. Colonoscopy at the time showed diverticulosis and internal hemorrhoids, prep was suboptimal. Pt instructed to f/u w him regarding CT findings. PSA normal Pulmonary nodules-repeat CT scan 6 months, patient aware. Insulin-dependent diabetes mellitus- SSI, Accu-Checks, glipizide on hold FEN Heart healthy diet/ADA 1999 Electrolytes: Monitor and replete when necessary No IV fluids at this time Anticoagulation with heparin drip and SCDs Discharge Planning Discharged once cleared by cardiology after cardiac catheterization today by Veronique Cortés MD Jan 24, 2017 07:30
[2017-01-24] MEDS: INSULIN ASPART SUPPLEMENTAL SCALE SQ SCH ×4 (08:00→21:00)
[2017-01-24] MEDS: DILTIAZEM-CD 180 MG CAP ER PO SCH (08:52)
[2017-01-24] MEDS: METOPROLOL SUCCINATE 50 MG EXTENDED RELEASE TAB PO SCH (08:52)
[2017-01-24] MEDS: levETIRAcetam 500 MG TAB PO SCH ×2 (08:52→20:52)
[2017-01-24] MEDS: PANTOPRAZOLE SOD 20 MG DELAYED RELEASE TAB PO SCH (08:53)
[2017-01-24] MEDS: LISINOPRIL 10 MG TAB PO SCH (08:53)
[2017-01-24] MEDS: POTASSIUM CHLORIDE 20 MEQ CONTROLLED RELEASE TAB PO SCH ×2 (08:53→21:02)
[2017-01-24] MEDS: FUROSEMIDE 40 MG TAB PO SCH (08:53)
[2017-01-24] MEDS: SODIUM CHLORIDE 0.9% FLUSH 10 ML FLUSH IV FLUSH SCH ×2 (08:53→20:53)
[2017-01-24] MEDS ORDERED: HEPARIN SODIUM - IV 10,000 UNITS/10 ML VIAL ONE (15:02)
[2017-01-24] MEDS ORDERED: NITROGLYCERIN INJ 5 ML ONE (15:02)
[2017-01-24] MEDS ORDERED: VERAPAMIL HCL 5 MG/2 ML VIAL ONE (15:02)
[2017-01-24] MEDS ORDERED: HEPARIN-NS/PF INJ 500 ML ONE (15:02)
[2017-01-24] MEDS ORDERED: MIDAZOLAM HCL 2 MG/2 ML VIAL ONE (15:15)
--- NOTE | 2017-01-24 15:57 | CATHPROC ---
D[facility] HIS Report Study Information Study Number Admission Scheduled Start Study Start [id number] Jan 17 2017 8:44PM 01/23/2017 Jan 24 2017 2:49PM [place] [facility] Cardiac Catheterization Admit Source Facility Department Other [facility] - [facility] Examiner Physician and Clinical Staff Initial Sid Motta Sprinkler Worker Awilda Austin,KOTA Other Josie Garza,RN Recorder Josie Davenport,RT(R) Scrub Lyle Petit,RT(R) Procedures Performed Procedure Location (Site) Vessel Name Coronary Angiograms LCA Left Coronary Coronary Angiograms RCA Right Coronary L Heart Cath Wire insertion Radial (right) Radial Art. Equipment Time Flare Man Description Size Mfg Part Number Used/Scraped TRANSDUCER, TRUWAVE [id number] 14:51 BLEDSOE FRIED * Used W/STOCKScent SciencesCK *[id number] [id number] *[id number] [id number] *[id number] 14:51 HW PACK, CCL CUSTOM * Used *[id number] 14:51 HW SUPPORT, ARTERIAL ADULT [id number] *[id number] Used BAND, RADIAL COMPRESSION TR [id number] 15:43 [employer] 29CM Used LARGE 29 *[id number] 14:51 [employer] MED[employer] WIRE, EXCHANGE 260CM 3MMJ 260CM Used *[id number] 14:51 NAMIC MANIFOLD, 4 PORT * Used *[id number] 14:51 NYCOMED OMNIPAQUE, 350 MG, 150ML 150ML [id number] Used 14:51 NYCOMED OMNIPAQUE, 350 MG, 150ML 150ML [id number] Used [id number] 14:51 [employer] [place] BLANKET,WARM AIR CCL * Used *[id number] SHEATH, FR6 TRANSRADIAL [id number] 14:51 [employer]anc[employer] FR 6 Used SLENDER 10CM *[id number] Equipment Model, Serial, Lot Number and Expiration Data Description Model Number Serial Number Lot Number Expiration Date BAND, RADIAL COMPRESSION TR [id number] 08-15-2019 LARGE 29 History: Current Medications Medication Dosage/Unit Route Frequency Last Date/Time Taken LISINOPRIL Beta Bell Glypizide HEPARIN History: Allergies Allergy Reaction No Known Allergies History: Risk Factors Family History of Hypertension Dyslipidemia Previous MO Previous Heart Failure Premature CAD Yes Yes Yes Yes Yes Prior Valve Prior PCI Prior PCIDate Prior CABG Surgery No Yes 03/17/1997 No Cerebrovascular Peripheral Artery Chronic Lung On Dialysis Diabetes Diabetes Therapy Disease Disease Disease No Yes No No Yes Oral History: CV Disease Selection Items Known CAD History: Stress Tests Stress or Imaging Studies Performed No History: Other Disease Selection Items HTN History: Other Current Smoker Method Quit Packs a Day Years Used Pack Years No Cigarettes 20 Years Ago 1 30 30 Labs Hgb (g/dl) Hct (%) WBC (l/cumm) Platelets (thousands) 11.60-17.00 35.00-51.00 4.00-11.00 150.00-450.00 11.7 35.3 10.5 128 Glucose (mg/dl) BUN (mg/dl) Creatinine (mg/dl) BUN:Creatinine (1:x) 74.00-106.00 7.00-18.00 0.50-1.30 10.00-20.00 156 18 1.2 15 Na (meq/l) K (meq/l) 136.00-145.00 3.50-5.10 138 4.2 INR (PTT:PT) 0.90-1.10 1.7 Troponin I (ng/ml) CPK (u/l) CPK-MB (ng/ML) 0.02-0.05 26.00-308.00 0.50-3.60 0.94 2204 7.7 Medication Medication Total Dose (Bolus/Oral) Medication Total Dosage/Unit 1% XYLOCAINE 20 mL FENTANYL 50 mcg RADIAL COCKTAIL 5 mL (Bolus) VERSED 0.5 mg Medications (Bolus/Oral) Medication Time Given Dosage/Unit Administered By Reason VERSED 01/24/2017 3:27:19 PM 0.5 mg Josie Garza 0.5 mg VERSED given by Josie Garza, RN via Peripheral IV. 1% XYLOCAINE 01/24/2017 3:29:41 PM 20 mL Sid Harrison 20 mL 1% XYLOCAINE given by Sid Harrison G in Right Radial via Subcutaneous. FENTANYL 01/24/2017 3:29:53 PM 50 mcg Josie Garza 50 mcg FENTANYL given by Josie Garza, RN via Peripheral IV. Ntg 200mcg Verapamil 2.5mg Heparin RADIAL COCKTAIL 01/24/2017 3:30:19 PM 5 mL (Bolus) Sid Harrison 3000U 5 mL (Bolus) RADIAL COCKTAIL given by Sid Harrison via Radial. Using [Solution Name]. Reason: Ntg 200mcg Verapamil 2.5mg Heparin 3000U. 4000 units of heparin Medication (Drip) Medication Time Given Dosage/Unit Concentration/Unit Diluent (ml) Solution IV Solutions 01/24/2017 3:27:01 PM 0 mL (IV) 500 NaCl .9 Patient arrived on IV Solutions in Left Antecubital via Peripheral IV. Pump/Drip Flow = 20 ml/hr usin g NaCl .9. Initial Case Assessment Cardiovascular HR Rhythm NIBP Chest Pain 60 reg 167/79 0 Edema Present Skin color Skin Mild Normal Warm Circulatory - Right Pulses Dorsalis Pedis Femoral Radial 1 3 2 Scale (0,1,2,3,4,d) Scale (0,1,2,3,4,d) Circulatory - Lower Extremities Color Lower Right Normal Neurological State Oriented to time-place- Alert Moves all extremities person Respiration - General Respiration Rate SpO2 (%) (B/min) 19 96 Final Case Assessment Cardiovascular HR Rhythm NIBP Chest Pain 60 reg 143/74 0 Edema Present Skin color Skin None Normal Warm Circulatory - Right Pulses Dorsalis Pedis Femoral Radial 1 3 2 Scale (0,1,2,3,4,d) Circulatory - Left Pulses Dorsalis Pedis Femoral Radial 3 Scale (0,1,2,3,4,d) Neurological State Oriented to time-place- Alert Moves all extremities person Respiration - General Respiration Rate SpO2 (%) (B/min) 16 98 Chronological Log Time Study Chronological Log 14:56:37 Patient arrived via Bed. 14:58:51 Patient Name, D.O.B, / Armband Verified By R.N. 15:00:59 Consent signed by the physician and the patient and verified by the [facility] Examin[facility] staff. 15:01:11 Verbal Stimulation=2 Physical Stimulation=2 Airway=2 Respiration=2 TOTAL=8. (0=absent, 1=li mited, 2=present) 15:02:30 Allens test performed on the right radial and ulnar artery by bernardo davenport with a positive resu lt Vitals capture started with the following parameters, Patient=Adult, Interval=3 min, Initial Pr hoxvne=748 mmHg, 15:12:54 Deflation Rate=5 mmHg, Cuff placed on Right Arm 15:13:30 HR=60 bpm, ZPJI=080/89 mmhg, SpO2=96.0 %, Resp=17 B/min, Pain=0, Mckenzie=10, Marina=2 15:15:23 Reference ECG taken 15:15:33 Reference ECG taken 15:16:34 HR=60 bpm, EJOS=157/80 mmhg, SpO2=97.0 %, Resp=12 B/min, Pain=0, Mckenzie=10, Marina=2 15:19:33 HR=60 bpm, GKFQ=540/81 mmhg, SpO2=96.0 %, Resp=14 B/min, Pain=0, Mckenzie=10, Marina=2 15:22:33 HR=60 bpm, CKXE=089/81 mmhg, SpO2=96.0 %, Resp=17 B/min, Pain=0, Mckenzie=10, Marina=2 15:24:07 Pre-op and post- op instructions given; patient acknowledges understanding of instructions. 15:25:17 Patient has been NPO for More than 6Hrs. 15:25:21 Skin Breakdown-none 15:25:33 HR=62 bpm, EKQP=534/75 mmhg, SpO2=95.0 %, Resp=10 B/min, Pain=0, Mckenzie=10, Marina=2 15:25:58 Марина Prominences Protected 15:26:02 A # 20 IV was noted in the Antecubital (left). Grade = 0 left bicep 15:26:32 Pressure channel 1 zeroed. 15:27:01 Patient arrived on IV Solutions in Left Antecubital via Peripheral IV. Pump/Drip Flow = 20 ml/hr using NaCl .9. 15:27:11 MD arrived. 15:27:19 0.5 mg VERSED given by Josie Garza, KOTA via Peripheral IV. 15:27:53 A # 20 IV was noted in the Antecubital (right). Grade = 0 saline lock 15:28:10 History and physical on the chart or being dictated. Assessment: Initial Case, HR=60 BPM, Rhythm=reg, QIQF=267/79 mmhg, Chest Pain=0, Edema=Mild, Co pravin=Normal, Skin = Warm Right Pulses: Shamar Ped=1, Femoral=3, Radial=2 15:28:11 Lower Right Extremities: Color=Normal Neurological: State=Alert, Ox3, MICHEL Respiration: Resp=19 B/min, SpO2=96 % 15:28:33 HR=60 bpm, XCGS=289/79 mmhg, SpO2=96.0 %, Resp=18 B/min, Pain=0, Mckenzie=10, Marina=2 Time Out. Correct patient, correct procedure, correct physician, power injector loaded, or not loaded with contrast with 15:29:18 surgical team present. Time Out Concurred by MD and individual staff in procedure. 15::35 Case Start 15::36 Verbal Stimulation=2 Physical Stimulation=2 Airway=2 Respiration=2 TOTAL=8. (0=absent, 1=li mited, 2=present) 15::41 20 mL 1% XYLOCAINE given by Sid Harrison in Right Radial via Subcutaneous. 15::53 50 mcg FENTANYL given by Josie Garza, KOTA via Peripheral IV. 5 mL (Bolus) RADIAL COCKTAIL given by Sid Harrison via Radial. Using [Solution Name]. Re ason: Ntg 200mcg 15:: Verapamil 2.5mg Heparin 3000U. 4000 units of heparin 15:30:40 Access site was Radial Artery. right 15:30:50 A wire was inserted via Radial (right). A SHEATH, FR6 TRANSRADIAL SLENDER 10CM FR 6 was advanced into the Radial (right) using the Perc utaneous 15:: technique. 15::35 HR=60 bpm, KMAH=793/71 mmhg, SpO2=95 %, Resp=18 B/min, Pain=0, Mckenzie=10, Marina=2 A JR 4.0 INFINITI CATHETER FR 5 was advanced over a wire. OMNIPAQUE, 350 MG, 150ML 150ML was us ed for 15:31:46 injections. Recorded Pressure: LV, HR=60, Condition=Condition 1 15:32:47 (Left Ventricle) LV 110/5/17 Recorded Pressure: LV, Ao, HR=60, Condition=Condition 1 15:33:44 (Left Ventricle) LV 114/6/18, (Aorta) Ao 115/54/80 15:34:29 The RCA was injected and visualized at various angles. OMNIPAQUE, 350 MG, 150ML 150ML used . 15:34:34 HR=60 bpm, PVUX=768/67 mmhg, SpO2=95 %, Resp=20 B/min, Pain=0, Mckenzie=10, Marina=2 Recorded Pressure: Ao, HR=60, Condition=Condition 1 15:34:42 (Aorta) Ao 120/60/84 After removing the current catheter a JL 3.5 INFINITI CATHETER FR 5 was advanced over a WIRE, E XCHANGE 260CM 15:35:59 3MMJ 260CM. 15:37:28 HR=60 bpm, KDHX=273/76 mmhg, SpO2=96.0 %, Resp=15 B/min, Pain=0, Mckenzie=10, Marina=2 15:38:11 The LCA was injected and visualized at various angles. OMNIPAQUE, 350 MG, 150ML 150ML used . 15:40:30 HR=60 bpm, TSYN=656/75 mmhg, SpO2=96.0 %, Resp=13 B/min, Pain=0, Mckenzie=10, Marina=2 15:41:34 Catheter was removed Assessment: Final Case, HR=60 BPM, Rhythm=reg, POOC=681/74 mmhg, Chest Pain=0, Edema=None, [place] r=Normal, Skin = Warm Right Pulses: Shamar Ped=1, Femoral=3, Radial=2 15:41:42 Left Pulses: Femoral=3 Neurological: State=Alert, Ox3, MICHEL Respiration: Resp=16 B/min, SpO2=98 % 15:44:17 HR=60 bpm, FXSD=656/74 mmhg, SpO2=98.0 %, Resp=14 B/min, Pain=0, Mckenzie=10, Marina=2 15:46:03 Case End 15:46:21 Sterile dressing applied to site 15:46:28 No case complications noted. 15:46:29 Cine recording checked. 15:46:30 Bedside Report will be given. 15:46:33 HR=60 bpm, NITV=577/70 mmhg, SpO2=97.0 %, Resp=12 B/min, Pain=0, Mckenzie=10, Marina=2 15:46:35 Contrast Scanned 15:46:36 A Left Heart Cath was performed. 15:46:37 Patient moved to stretcher 15:49:03 Vitals capture stopped. End Study - Contrast Media Used In Study Contrast Total Opened (mL) Total Used (mL) Total Wasted (mL) Omnipaque 40 40 0 End Study - Maximum Contrast Load Max Contrast Load (mL) 398.3 End Study - Radiation Exposure Fluoro Time (minutes) 1.5 End Study - Sheaths Sheaths Pulled By Sheath Hold Time (min) Lyle Petit End Study - Patient Disposition Complications Transferred To No Regular Bed
[2017-01-24] MEDS ORDERED: MISC INFORMATION XX ONE (16:00)
[2017-01-24] MEDS ORDERED: IOHEXOL 350 MG/ML 50 ML BTL (for Cath Lab) OTHER ONE (16:29)
--- NOTE | 2017-01-24 18:30 | PD.CARD.PN ---
Subjective Subjective Remarks No chest pain/SOB No fevers/chills Post-cath Objective Medications Current Medications Medications (Trade) Dose Ordered Sig/Jaz Route Start Time Stop Time Status Last Admin (Lipitor) 80 mg HS PO 01/18/17 21:00 01/23/17 20:22 (Cardizem Cd) 180 mg DAILY PO 01/18/17 09:00 01/24/17 08:52 (Tikosyn) 500 mcg BID PO 01/18/17 09:00 Future Hold (Lasix) 40 mg DAILY PO 01/18/17 09:00 01/24/17 08:53 (Keppra) 1,000 mg BID PO 01/18/17 09:00 01/24/17 08:52 (Nitrostat Sl) 0.4 mg Q15M PRN SL 01/17/17 21:45 (KCl) 20 meq Q12HR PO 01/18/17 09:00 01/24/17 08:53 (Toprol Xl) 200 mg DAILY PO 01/18/17 09:00 01/24/17 08:52 (Protonix) 20 mg DAILY PO 01/18/17 09:00 01/24/17 08:53 (NS Flush) 2 ml UNSCH PRN IV FLUSH 01/17/17 21:45 (NS Flush) 2 ml BID IV FLUSH 01/18/17 09:00 01/23/17 20:23 (Tylenol) 650 mg Q4H PRN PO 01/17/17 21:45 (Zofran Inj) 4 mg Q6H PRN IVP 01/17/17 21:45 (Narcan Inj) 0.4 mg UNSCH PRN IV PUSH 01/17/17 21:45 (Milk Of Magnesia Liq) 30 ml Q12H PRN PO 01/17/17 21:45 (Dulcolax Supp) 10 mg DAILY PRN RECTAL 01/17/17 21:45 (Lactulose Liq) 30 ml DAILY PRN PO 01/17/17 21:45 Sodium Chloride 1,000 ml @ 65 mls/hr [id number] IV 01/17/17 22:00 Future Hold 01/17/17 22:12 Sodium Chloride 500 ml @ 500 mls/hr BOLUS PRN IV 01/18/17 01:00 01/18/17 01:40 (D50w (Vial) Inj) 50 ml UNSCH PRN IV PUSH 01/18/17 09:00 (Glucagon Inj) 1 mg UNSCH PRN OTHER 01/18/17 09:00 (NovoLOG SUPPLEMENTAL SCALE) 1 ACHS SLIDING SCALE SQ 01/18/17 12:00 01/24/17 08:00 Ceftriaxone Sodium 2000 mg/ Sodium Chloride 100 ml @ 200 mls/hr Q24H IV 01/20/17 21:00 01/23/17 20:22 (Prinivil) 10 mg DAILY PO 01/22/17 15:30 01/24/17 08:53 (Ingrid-Colace) 1 tab BID PRN PO 01/22/17 15:15 Vital Signs / I&O Vital Signs Date Time Temp Pulse Resp B/P (MAP) Pulse Ox O2 Delivery O2 Flow Rate FiO2 01/24/17 17:56 Room Air 01/24/17 17:00 64 01/24/17 16:35 99 21 01/24/17 16:24 98.0 61 17 140/74 (96) 99 01/24/17 14:00 60 01/24/17 13:00 60 01/24/17 12:38 Room Air 01/24/17 12:00 60 01/24/17 11:17 98.9 61 19 157/80 (105) 96 01/24/17 11:00 60 01/24/17 10:57 96 21 01/24/17 10:00 60 01/24/17 09:00 60 01/24/17 08:56 Room Air 01/24/17 08:17 97.8 60 18 178/90 (119) 97 01/24/17 08:00 60 01/24/17 07:00 60 01/24/17 06:00 60 01/24/17 05:00 68 01/24/17 04:56 97.9 59 153/79 (103) 94 01/24/17 04:00 68 01/24/17 03:41 Room Air 2.00 100 01/24/17 03:00 64 01/24/17 02:00 60 01/24/17 01:00 62 01/24/17 00:00 60 01/24/17 00:00 97.9 60 121/56 (77) 94 01/23/17 23:50 Room Air 2.00 100 01/23/17 23:00 62 01/23/17 22:00 60 01/23/17 21:00 60 01/23/17 20:00 66 01/23/17 19:17 Room Air 01/23/17 19:00 98.8 62 139/78 (98) 96 01/23/17 19:00 60 I/O 01/23/17 01/23/17 01/23/17 01/24/17 01/24/17 01/24/17 07:00 15:00 23:00 07:00 15:00 23:00 Intake Total 240 ml 720 ml 100 ml 480 ml Output Total 1050 ml 450 ml 450 ml 700 ml Balance -810 ml 270 ml 100 ml 30 ml -700 ml Intake Oral 240 ml 720 ml 480 ml IV Total 100 ml Output Urine Total 1050 ml 450 ml 450 ml 700 ml Physical Exam GENERAL: NAD, AAOx3 SKIN: Warm and dry. HEAD: Atraumatic. Normocephalic. EYES: Pupils equal and round. No scleral icterus. No injection or drainage. ENT: No nasal bleeding or discharge. Mucous membranes pink and moist. NECK: Trachea midline. No JVD. CARDIOVASCULAR: Regular rate and rhythm. RESPIRATORY: No accessory muscle use. Clear to auscultation. Breath sounds equal bilaterally. GASTROINTESTINAL: Abdomen soft, non-tender, nondistended. Hepatic and splenic margins not palpable. MUSCULOSKELETAL: Extremities without clubbing, cyanosis, or edema. No obvious deformities. NEUROLOGICAL: Awake and alert. No obvious cranial nerve deficits. Motor grossly within normal limits. Five out of 5 muscle strength in the arms and legs. Normal speech. PSYCHIATRIC: Appropriate mood and affect; insight and judgment normal. Laboratory Laboratory Tests Test 01/24/17 05:24 Activated Partial Thromboplast Time 51.4 SEC Assessment and Plan Problem List: (1) Bacteremia ICD Codes: R78.81 - Bacteremia (2) AICD discharge ICD Codes: Z45.02 - Encounter for adjustment and management of automatic implantable cardiac defibrillator (3) Elevated troponin ICD Codes: R74.8 - Abnormal levels of other serum enzymes Status: Acute (4) Cardiomyopathy with implantable cardioverter-defibrillator ICD Codes: I42.9 - Cardiomyopathy, unspecified; Z95.810 - Presence of automatic (implantable) cardiac defibrillator Status: Acute (5) Urinary tract infection ICD Codes: N39.0 - Urinary tract infection, site not specified (6) DM2 (diabetes mellitus, type 2) ICD Codes: E11.9 - Type 2 diabetes mellitus without complications Status: Chronic Assessment and Plan 1) AICD firing for Vfib Cardiac cath with no lesion to intervene on, con't medical management 2) UTI 3) Sepsis Blood cultures positive for gram negative rods which have since cleared Lactic acidosis 4) Thrombocytopenia Platelets back to normal Most likely secondary to sepsis 5) Afib Will plan to hold Tikosyn for now due to ventricular arrhythmias Discussed with Dr. Myrick 6) QTc mildly prolonged EGKs in the past have had a similar QTc length without problem 7) No further cardiovascular work up If stable in the morning, can be discharged to follow up with Dr. Myrick in 2- 4 weeks No Tikosyn on discharge If concerns in the morning, please call covering physician Sid Harrison DO Jan 24, 2017 18:30
--- NOTE | 2017-01-24 19:52 | MA ---
cc: SID FROST DO DATE January 24, 2017 PROCEDURE Left heart catheterization, coronary angiogram, moderate sedation 20 minutes. PREPROCEDURE DIAGNOSIS NSTEMI, ventricular fibrillation status post AICD firing. POSTPROCEDURE DIAGNOSIS Mild coronary artery disease. MEDICATIONS 1. Versed 0.5 milligrams. 2. Fentanyl 50 micrograms. 3. Heparin 4000 units. 4. Nitro 200 micrograms. 5. Verapamil 2.5 milligrams. CONTRAST USED 40 cc. FLUOROSCOPY 1.5 minutes. MODERATE SEDATION 20 minutes. ESTIMATED BLOOD LOSS 10 cc. PROCEDURAL SUMMARY Triston Bolton is a pleasant 76-year-old male who sees my partners, Dr. Echavarria and Dr. Myrick, in the office. He presented after his AICD fired 13 times. He was found to have gram-negative bacteremia and this has since cleared and he was cleared by ID for cardiac catheterization. Risks, benefits and alternatives were explained to him and he consented as such. He was brought to the lab and prepped in the usual sterile fashion. Right radial artery was accessed using a modified Seldinger technique and placement of a 5/6 Lao slender sheath. This was easily aspirated and flushed. JR-4 was advanced over a J-wire to the ascending aorta and across the aortic valve for measurement of left ventricular pressure. This was pulled back across the aortic valve showing no significant gradient of aortic stenosis. JR-4 was then used for selective angiography of the right coronary artery. This was exchanged out for a JL-3.5 which was used for selective angiography of the left coronary artery system. JL-3.5 was then removed over a J-wire. A radial band was placed over the arteriotomy site for hemostasis. The patient left the lab instructor cardiovascularly stable. FINDINGS Left main: Normal size vessel with adequate reflux and mild 20% disease. This bifurcates into an LAD and circumflex. LAD: Normal-size vessel. Proximal portion appears to have a stent which is widely patent. Mild luminal irregularities throughout the midportion but no significant disease. There is a high diagonal versus ramus which is a moderate size vessel with multiple stents throughout and 20% in-stent restenosis. Left circumflex: Normal size vessel with mild luminal irregularities. There is two obtuse marginals that are noted. The first one is subtotally occluded in the ostium and fills via antegrade flow as well as collaterals from the left coronary system. Overall, a small vessel of 1-1.5 mm. RCA: Normal-size vessel with mild luminal irregularities throughout and a 30% lesion in the midportion. Distally supplies a PDA as well as a large ___ with no significant disease. LVEDP 18. IMPRESSION 1. NSTEMI, most likely due to AICD firing multiple times. 2. Ventricular fibrillation requiring AICD therapy. 3. Mild coronary artery disease as above. RECOMMENDATIONS 1. Mr. Bolton appears to have no intervenable lesions at this time and we will continue on medical management. 2. He will be watched overnight and in the morning, if no other concern, is cardiovascularly stable for discharge. 3. He will continue off Tikosyn. 4. He will follow up with Dr. Myrick for interrogation of his pacemaker and if further episodes of atrial fibrillation with rapid ventricular response may need further modifications. Thank you for allowing me to see Triston Bolton. If there are any questions please do not hesitate to call. Sid Frost DO VGP/EO /7:17 PM /7:43 PM
[2017-01-24] MEDS: ATORVASTATIN 80 MG TAB PO SCH (20:52)
[2017-01-24] MEDS: cefTRIAXone INJ 2,000 MG in SODIUM CHLORIDE 0.9% INJ 100 ML IV SCH (20:53)
[2017-01-25] VITALS (25 sets, daily range): BP systolic 129–145; BP diastolic 64–75; PULSE 60–70; RESP 14–19; TEMP 97.7–98.5; O2SAT 95–98
[2017-01-25 04:58] LABS: AUTOMATED NEUTROPHIL # 6.9 TH/MM3 (1.8-7.7); BASOPHIL # 0.1 TH/MM3 (0-0.2); BASOPHIL % 0.9 % (0.0-2.0); EOSINOPHIL # 0.1 TH/MM3 (0-0.4); EOSINOPHIL % 1.5 % (0.0-4.0); HEMATOCRIT 36.1 % (39.0-51.0); HEMO FLAGS DIFF FINAL; LYMPHOCYTE # 1.1 TH/MM3 (1.0-4.8); MEAN CORPUSCULAR HEMOGLOBIN 31.2 PG (27.0-34.0); MONO % 8.6 % (0.0-8.0); PLATELET COUNT 163 TH/MM3 (150-450); RED BLOOD COUNT 3.92 MIL/MM3 (4.50-5.90); RED CELL DISTRIBUTION WIDTH 15.9 % (11.6-17.2)
[2017-01-25 05:10] LABS: APTT (PATIENT) 25.7 SEC (24.3-30.1); BICARBONATE 28.8 MEQ/L (21.0-32.0); POTASSIUM 4.3 MEQ/L (3.5-5.1)
[2017-01-25] MEDS: INSULIN ASPART SUPPLEMENTAL SCALE SQ SCH ×4 (08:00→21:21)
[2017-01-25] MEDS: FUROSEMIDE 40 MG TAB PO SCH (09:58)
[2017-01-25] MEDS: POTASSIUM CHLORIDE 20 MEQ CONTROLLED RELEASE TAB PO SCH ×2 (09:59→21:20)
[2017-01-25] MEDS: DILTIAZEM-CD 180 MG CAP ER PO SCH (09:59)
[2017-01-25] MEDS: levETIRAcetam 500 MG TAB PO SCH ×2 (09:59→21:19)
[2017-01-25] MEDS: PANTOPRAZOLE SOD 20 MG DELAYED RELEASE TAB PO SCH (10:00)
[2017-01-25] MEDS: SODIUM CHLORIDE 0.9% FLUSH 10 ML FLUSH IV FLUSH SCH ×2 (10:00→21:20)
[2017-01-25] MEDS: METOPROLOL SUCCINATE 50 MG EXTENDED RELEASE TAB PO SCH (10:00)
[2017-01-25] MEDS: LISINOPRIL 10 MG TAB PO SCH (10:00)
--- NOTE | 2017-01-25 10:03 | HHI.PR ---
Subjective Remarks Patient says he is feeling well. No chest pain or shortness of breath. No nausea or vomiting. Feels like going home. Objective Vital Signs Date Time Temp Pulse Resp B/P (MAP) Pulse Ox O2 Delivery O2 Flow Rate FiO2 01/25/17 08:00 61 01/25/17 07:00 97.7 60 18 136/67 (90) 97 01/25/17 07:00 97 Room Air 01/25/17 07:00 60 01/25/17 06:00 60 01/25/17 05:00 60 01/25/17 04:00 60 01/25/17 03:00 62 01/25/17 02:00 62 01/25/17 01:00 60 01/25/17 00:00 60 01/24/17 23:00 98 Room Air 01/24/17 23:00 60 01/24/17 23:00 98.2 60 14 143/71 (95) 98 01/24/17 22:00 60 01/24/17 21:00 60 01/24/17 20:00 60 01/24/17 20:00 97.5 60 14 133/67 (89) 94 01/24/17 19:00 94 Room Air 01/24/17 19:00 64 01/24/17 17:56 Room Air 01/24/17 17:00 64 01/24/17 16:35 99 21 01/24/17 16:24 98.0 61 17 140/74 (96) 99 01/24/17 14:00 60 01/24/17 13:00 60 01/24/17 12:38 Room Air 01/24/17 12:00 60 01/24/17 11:17 98.9 61 19 157/80 (105) 96 01/24/17 11:00 60 01/24/17 10:57 96 21 I/O 01/24/17 01/24/17 01/24/17 01/25/17 01/25/17 01/25/17 07:00 15:00 23:00 07:00 15:00 23:00 Intake Total 480 ml 720 ml Output Total 450 ml 700 ml 375 ml Balance 30 ml -700 ml 345 ml Intake Oral 480 ml 720 ml Output Urine Total 450 ml 700 ml 375 ml # Voids 1 Result Diagram: 11/11/17 0409 11/11/17 0409 Imaging Last Impressions Chest CT 01/20/17 0000 Signed Impressions: Service Date/Time: Saturday, January 21, 2017 00:38 - CONCLUSION: 1. Small bilateral effusions and bibasilar atelectasis 2. 5 mm nodule right middle lobe. Followup CT scan in 6 months is recommended. 3. 2 cm nodule right lobe of the thyroid. Ultrasound examination is recommended if clinically indicated. Ashutosh Read MD Abdomen/Pelvis CT 01/20/17 0000 Signed Impressions: Service Date/Time: Saturday, January 21, 2017 00:38 - CONCLUSION: 1. 4 mm distal right ureteral stone with mild hydronephrosis 2. 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 Diverticulosis without evidence of diverticulitis. Possible mucosal lesion of the transverse colon. Colonoscopy is recommended for further evaluation if clinically indicated. Ashutosh Read MD Chest X-Ray 01/17/17 1839 Signed Impressions: Service Date/Time: Tuesday, January 17, 2017 19:11 - CONCLUSION: Stable cardiomegaly. Left subclavian bipolar pacer Franco Shore MD Objective Remarks GENERAL: Patient sitting up in bed. Appears comfortable. SKIN: Warm and dry. HEAD: Normocephalic. EYES: No scleral icterus. No injection or drainage. NECK: Supple, trachea midline. No JVD or lymphadenopathy. CARDIOVASCULAR: Regular rate and rhythm without murmurs, gallops, or rubs. RESPIRATORY: Breath sounds equal bilaterally. No accessory muscle use. GASTROINTESTINAL: Abdomen soft, non-tender, nondistended. MUSCULOSKELETAL: No cyanosis, or edema. BACK: Nontender without obvious deformity. No CVA tenderness. A/P Assessment and Plan 76-year-old male presents to the emergency department after his defibrillator went off 13 times for ventricular fibrillation. //Ventricular fibrillation Pacemaker interrogated, 13 defibrillations for V. fib, Elevated cardiac enzymes. Appropriate shocks given. Cardiology following, Dr. Stallings also saw the patient. Stop Tikosyn, might need AV node modification if with recurrence of arrhythmia. Plan for cardiac catheterization . - Continue Lasix, lisinopril, metoprolol, Cardizem. Heparin per cardio, as patient will go for cardiac cath CAD/CHF/A. fib Holding Xarelto. Restart discharge. Continue metoprolol, lisinopril, Lasix,, Cardizem continue heparin. //Proteus bacteremia- versus GI source, infectious disease is following, continue ceftriaxone, repeat blood cultures from 01/20/17 negative so far, echocardiogram unremarkable, no vegetation, leukocytosis resolved. We'll discuss with infectious disease. Etiology unclear, CT chest shows small B effusion and bibasilar atelectasis. 5mm nodule right middle lobe and recommendations are for f/u CT in 6 months. 2 cm nodule in right lobe of thyroid. TSH normal, Free T4 mildly elevated. u/s of the thyroid and further work-up to be done as an outpatient, pt notified and agreeable w plan. CT abd/pelvis: 4mm distal right ureteral stone w mild hydronephrosis. probable bilateral adrenal adenomas. diverticulosis without evidence of diverticulitis. Possible mucosal lesion of the transverse colon. Pt will need further eval via colonoscopy which can be done as an outpatient. Pt tells me that he follows w the [facility]. Pt was seen by Dr. Funez in 2016 per records here. Colonoscopy at the time showed diverticulosis and internal hemorrhoids, prep was suboptimal. Pt instructed to f/u w him regarding CT findings. PSA normal = Patient agrees to follow up with primary care for monitoring of thyroid nodule , follow-up CT chest, colonoscopy.. = For Proteus bacteremia, patient has had 8 days of treatment with IV antibiotics so far. Echocardiogram negative for vegetation. Repeat cultures negative. Would like to send him home on Levaquin to complete course, however most recent QTC 498. We'll repeat EKG now the patient is off tikosyn. //Pulmonary nodules-repeat CT scan 6 months, patient aware. //Insulin-dependent diabetes mellitus- SSI, Accu-Checks, glipizide on hold //FEN Heart healthy diet/ADA 1999 Electrolytes: Monitor and replete when necessary No IV fluids at this time Anticoagulation with SCDs Discharge Planning Discharge pending EKG for QTC. Hopefully patient can do Levaquin to complete treatment course for Proteus bacteremia. Nato Ortiz MD Jan 25, 2017 10:03
--- NOTE | 2017-01-25 13:49 | HHI.PR ---
Addendum to Inpatient Note Additional Information Dr.Duncan felisa Christianson. Given high risk for pacer infection only oral option I would recommend is Levaquin due to high bioavailability. reviewed EKG findings with and Levaquin not a good choice for this patient. Alternative is IV. Will discuss with patients daughter if we can arrange transportation to Infusion clinic or home health for the remaining 6 days of IV ceftriaxone. Will see pt next on Friday, Felisa Saucedo. Shaniqua Kumar MD Jan 25, 2017 13:49
[2017-01-25] MEDS: ATORVASTATIN 80 MG TAB PO SCH (21:19)
[2017-01-25] MEDS: cefTRIAXone INJ 2,000 MG in SODIUM CHLORIDE 0.9% INJ 100 ML IV SCH (21:20)
[2017-01-26] VITALS (25 sets, daily range): BP systolic 107–143; BP diastolic 55–74; PULSE 59–74; RESP 16–18; TEMP 95.2–97.8; O2SAT 96–98
[2017-01-26 07:50] LABS: HEMATOCRIT 37.2 % (39.0-51.0); MEAN CELL VOLUME 92.7 FL (80.0-100.0); MEAN CORPUSCULAR HGB CONC 33.5 % (32.0-36.0); PLATELET COUNT 156 TH/MM3 (150-450); RED BLOOD COUNT 4.01 MIL/MM3 (4.50-5.90); RED CELL DISTRIBUTION WIDTH 16.3 % (11.6-17.2); REVIEW FLAG FINAL; WHITE BLOOD COUNT 8.6 TH/MM3 (4.0-11.0)
[2017-01-26] MEDS: SODIUM CHLORIDE 0.9% FLUSH 10 ML FLUSH IV FLUSH SCH ×2 (09:00→21:00)
[2017-01-26] MEDS: INSULIN ASPART SUPPLEMENTAL SCALE SQ SCH ×4 (09:38→21:00)
[2017-01-26] MEDS: levETIRAcetam 500 MG TAB PO SCH ×2 (09:39→21:46)
[2017-01-26] MEDS: FUROSEMIDE 40 MG TAB PO SCH (09:40)
[2017-01-26] MEDS: DILTIAZEM-CD 180 MG CAP ER PO SCH (09:40)
[2017-01-26] MEDS: LISINOPRIL 10 MG TAB PO SCH (09:40)
[2017-01-26] MEDS: POTASSIUM CHLORIDE 20 MEQ CONTROLLED RELEASE TAB PO SCH ×2 (09:40→21:46)
[2017-01-26] MEDS: METOPROLOL SUCCINATE 50 MG EXTENDED RELEASE TAB PO SCH (09:41)
[2017-01-26] MEDS: PANTOPRAZOLE SOD 20 MG DELAYED RELEASE TAB PO SCH (09:41)
--- NOTE | 2017-01-26 12:53 | EKG ---
Date Performed: 01/25/2017 Time Performed: 10:02:48 PTAGE: 76 years EKG: Atrial paced rhythm Right bundle branch block Left axis deviation Diffuse nonspecific T-wav e change Abnormal ECG PREVIOUS TRACING : 01/18/2017 07.15 Since previous tracing, no significant change DOCTOR: Aram Huerta Interpretating Date/Time 01/26/2017 12:51:46
--- NOTE | 2017-01-26 18:00 | HHI.PR ---
Subjective Remarks Patient says he is feeling well. No complaints. Denies any chest pain or shortness of breath. Positive bowel movement. Patient requests to be made activity ad tena. Patient promises to use walker and call if he needs assistance. Daughter at bedside is agreeable. Objective Vital Signs Date Time Temp Pulse Resp B/P (MAP) Pulse Ox O2 Delivery O2 Flow Rate FiO2 01/26/17 16:55 95.2 59 18 123/74 (90) 98 01/26/17 12:00 65 01/26/17 08:00 97.2 60 18 143/69 (93) 98 01/26/17 08:00 59 01/26/17 08:00 95 Room Air 01/26/17 06:00 60 01/26/17 05:00 60 01/26/17 04:00 60 01/26/17 03:00 60 01/26/17 03:00 96 Room Air 01/26/17 03:00 97.5 63 18 135/72 (93) 96 01/26/17 02:00 60 01/26/17 01:00 60 01/26/17 00:00 60 01/25/17 23:00 96 Room Air 01/25/17 23:00 60 01/25/17 23:00 98.2 61 16 142/75 (97) 96 01/25/17 22:00 60 01/25/17 21:28 98 21 01/25/17 21:00 60 01/25/17 20:00 62 01/25/17 19:00 97.9 60 14 133/67 (89) 95 01/25/17 19:00 95 Room Air 01/25/17 19:00 60 01/25/17 18:00 60 I/O 01/25/17 01/25/17 01/25/17 01/26/17 01/26/17 01/26/17 07:00 15:00 23:00 07:00 15:00 23:00 Intake Total 720 ml 480 ml 480 ml Output Total 375 ml 950 ml 1525 ml Balance 345 ml -470 ml -1045 ml Intake Oral 720 ml 480 ml 480 ml Output Urine Total 375 ml 950 ml 1525 ml # Voids 1 # Bowel Movements 1 Result Diagram: 01/26/17 0615 01/25/17 0409 Objective Remarks GENERAL: Patient lying in bed. Appears comfortable. SKIN: Warm and dry. HEAD: Normocephalic. EYES: No scleral icterus. No injection or drainage. NECK: Supple, trachea midline. No JVD or lymphadenopathy. CARDIOVASCULAR: Regular rate and rhythm without murmurs, gallops, or rubs. RESPIRATORY: Breath sounds equal bilaterally. No accessory muscle use. GASTROINTESTINAL: Abdomen soft, non-tender, nondistended. MUSCULOSKELETAL: No cyanosis, or edema. BACK: Nontender without obvious deformity. No CVA tenderness. A/P Assessment and Plan 76-year-old male presents to the emergency department after his defibrillator went off 13 times for ventricular fibrillation. //Ventricular fibrillation Pacemaker interrogated, 13 defibrillations for V. fib, Elevated cardiac enzymes. Appropriate shocks given. Cardiology following, Dr. Stallings also saw the patient. Stop Tikosyn, might need AV node modification if with recurrence of arrhythmia. Plan for cardiac catheterization . - Continue Lasix, lisinopril, metoprolol, Cardizem. Heparin per cardio, as patient will go for cardiac cath CAD/CHF/A. fib Holding Xarelto. Restart discharge. Continue metoprolol, lisinopril, Lasix,, Cardizem. = 01/26 Start back on Xarelto //Proteus bacteremia- versus GI source, infectious disease is following, continue ceftriaxone, repeat blood cultures from 01/20/17 negative so far, echocardiogram unremarkable, no vegetation, leukocytosis resolved. We'll discuss with infectious disease. Etiology unclear, CT chest shows small B effusion and bibasilar atelectasis. 5mm nodule right middle lobe and recommendations are for f/u CT in 6 months. 2 cm nodule in right lobe of thyroid. TSH normal, Free T4 mildly elevated. u/s of the thyroid and further work-up to be done as an outpatient, pt notified and agreeable w plan. CT abd/pelvis: 4mm distal right ureteral stone w mild hydronephrosis. probable bilateral adrenal adenomas. diverticulosis without evidence of diverticulitis. Possible mucosal lesion of the transverse colon. Pt will need further eval via colonoscopy which can be done as an outpatient. Pt tells me that he follows w the [facility]. Pt was seen by Dr. Funez in 2016 per records here. Colonoscopy at the time showed diverticulosis and internal hemorrhoids, prep was suboptimal. Pt instructed to f/u w him regarding CT findings. PSA normal = Patient agrees to follow up with primary care for monitoring of thyroid nodule , follow-up CT chest, colonoscopy.. = For Proteus bacteremia, patient has had 8 days of treatment with IV antibiotics so far. Echocardiogram negative for vegetation. Repeat cultures negative. Would like to send him home on Levaquin to complete course, however most recent QTC 498. We'll repeat EKG now the patient is off tikosyn. = 01/26. QTC 480s. Levaquin poor choice for patient with elevated QTC who came in with cardiac arrest. We'll keep on ceftriaxone in the hospital. Expect that we can get a PICC line placed tomorrow morning, possibly go home tomorrow. Daughter at bedside agreeable with plan for outpatient infusion. //Pulmonary nodules-repeat CT scan 6 months, patient aware. //Insulin-dependent diabetes mellitus- SSI, Accu-Checks, glipizide on hold //FEN Heart healthy diet/ADA 1999 Electrolytes: Monitor and replete when necessary No IV fluids at this time Anticoagulation with SCDs Discharge Planning Patient will need PICC line, ceftriaxone for 5 more days. Infectious disease we 'll order PICC line, outpatient IV infusion protocol. Patient can likely go home tomorrow afternoon 01/27. Nato Ortiz MD Jan 26, 2017 18:00
[2017-01-26] MEDS ORDERED: RIVAROXABAN 20 MG TAB PO SCH (21:00)
[2017-01-26] MEDS: ATORVASTATIN 80 MG TAB PO SCH (21:47)
[2017-01-26] MEDS: cefTRIAXone INJ 2,000 MG in SODIUM CHLORIDE 0.9% INJ 100 ML IV SCH (21:47)
[2017-01-27] VITALS (18 sets, daily range): BP systolic 121–130; BP diastolic 58–70; PULSE 60–76; RESP 16–18; TEMP 97.7–97.8; O2SAT 97
[2017-01-27 06:41] LABS: AUTOMATED NEUTROPHIL # 7.1 TH/MM3 (1.8-7.7); BASOPHIL % 0.5 % (0.0-2.0); EOSINOPHIL # 0.1 TH/MM3 (0-0.4); HEMATOCRIT 36.8 % (39.0-51.0); HEMO FLAGS DIFF FINAL; LYMPH % 12.3 % (9.0-44.0); LYMPHOCYTE # 1.1 TH/MM3 (1.0-4.8); MEAN CELL VOLUME 92.6 FL (80.0-100.0); MEAN CORPUSCULAR HGB CONC 33.5 % (32.0-36.0); MONO % 8.5 % (0.0-8.0); NEUT % 77.7 % (16.0-70.0); PLATELET COUNT 166 TH/MM3 (150-450); RED BLOOD COUNT 3.98 MIL/MM3 (4.50-5.90); RED CELL DISTRIBUTION WIDTH 15.9 % (11.6-17.2); WHITE BLOOD COUNT 9.1 TH/MM3 (4.0-11.0)
[2017-01-27 07:03] LABS: MAGNESIUM 2.4 MG/DL (1.5-2.5)
[2017-01-27] MEDS: METOPROLOL SUCCINATE 50 MG EXTENDED RELEASE TAB PO SCH (08:07)
[2017-01-27] MEDS: INSULIN ASPART SUPPLEMENTAL SCALE SQ SCH ×2 (08:07→12:27)
[2017-01-27] MEDS: DILTIAZEM-CD 180 MG CAP ER PO SCH (08:07)
[2017-01-27] MEDS: FUROSEMIDE 40 MG TAB PO SCH (08:07)
[2017-01-27] MEDS: levETIRAcetam 500 MG TAB PO SCH (08:08)
[2017-01-27] MEDS: LISINOPRIL 10 MG TAB PO SCH (08:08)
[2017-01-27] MEDS: PANTOPRAZOLE SOD 20 MG DELAYED RELEASE TAB PO SCH (08:08)
[2017-01-27] MEDS: POTASSIUM CHLORIDE 20 MEQ CONTROLLED RELEASE TAB PO SCH (08:08)
[2017-01-27] MEDS: SODIUM CHLORIDE 0.9% FLUSH 10 ML FLUSH IV FLUSH SCH (08:09)
[2017-01-27] MEDS ORDERED: SODIUM CHLOR 0.9% 250 ML INJ 250 ML IV ONE (09:15)
--- NOTE | 2017-01-27 09:24 | HHI.PR ---
Subjective Remarks Patient says he is feeling well. Denies any chest pain or shortness of breath. Denies any nausea or vomiting. Says he is drinking a lot. He does note some edema in his legs, however says this is normal when he is sitting. Objective Vital Signs Date Time Temp Pulse Resp B/P (MAP) Pulse Ox O2 Delivery O2 Flow Rate FiO2 01/27/17 06:00 60 01/27/17 05:00 60 01/27/17 04:00 60 01/27/17 03:00 60 01/27/17 03:00 97.7 62 16 121/58 (79) 97 01/27/17 03:00 97 Room Air 01/27/17 02:00 60 01/27/17 01:00 70 01/27/17 00:00 60 01/26/17 23:00 98 Room Air 01/26/17 23:00 60 01/26/17 23:00 97.4 61 16 124/63 (83) 98 01/26/17 22:00 60 01/26/17 21:00 60 01/26/17 20:22 98 21 01/26/17 20:00 60 01/26/17 19:00 97.8 60 18 124/62 (82) 96 01/26/17 19:00 60 01/26/17 19:00 60 01/26/17 19:00 96 Room Air 01/26/17 18:00 64 01/26/17 17:00 62 01/26/17 16:55 95.2 59 18 123/74 (90) 98 01/26/17 16:00 59 01/26/17 15:00 70 01/26/17 15:00 98 Room Air 01/26/17 14:00 70 01/26/17 13:00 60 01/26/17 12:00 65 01/26/17 12:00 95.4 60 18 107/55 (72) 98 01/26/17 11:00 66 01/26/17 11:00 98 Room Air 01/26/17 10:00 60 I/O 01/26/17 01/26/17 01/26/17 01/27/17 01/27/17 01/27/17 07:00 15:00 23:00 07:00 15:00 23:00 Intake Total 480 ml 480 ml 480 ml Output Total 1525 ml 900 ml Balance -1045 ml 480 ml -420 ml Intake Oral 480 ml 480 ml 480 ml Output Urine Total 1525 ml 900 ml Result Diagram: 01/27/1760501/27/17605 Objective Remarks GENERAL: Patient lying in bed. Appears comfortable. SKIN: Warm and dry. HEAD: Normocephalic. EYES: No scleral icterus. No injection or drainage. NECK: Supple, trachea midline. No JVD or lymphadenopathy. CARDIOVASCULAR: Regular rate and rhythm without murmurs, gallops, or rubs. RESPIRATORY: Breath sounds equal bilaterally. No accessory muscle use. GASTROINTESTINAL: Abdomen soft, non-tender, nondistended. MUSCULOSKELETAL: No cyanosis. he does have 1+ peripheral edema. BACK: Nontender without obvious deformity. No CVA tenderness. A/P Assessment and Plan 76-year-old male presents to the emergency department after his defibrillator went off 13 times for ventricular fibrillation. //Ventricular fibrillation Pacemaker interrogated, 13 defibrillations for V. fib, Elevated cardiac enzymes. Appropriate shocks given. Cardiology following, Dr. Stallings also saw the patient. Stop Tikosyn, might need AV node modification if with recurrence of arrhythmia. Plan for cardiac catheterization . - Continue Lasix, lisinopril, metoprolol, Cardizem. Heparin per cardio, as patient will go for cardiac cath CAD/CHF/A. fib Holding Xarelto. Restart discharge. Continue metoprolol, lisinopril, Lasix,, Cardizem. = 01/26 Start back on Xarelto = 01/27. Continue medications as ordered. //Proteus bacteremia- versus GI source, infectious disease is following, continue ceftriaxone, repeat blood cultures from 01/20/17 negative so far, echocardiogram unremarkable, no vegetation, leukocytosis resolved. We'll discuss with infectious disease. Etiology unclear, CT chest shows small B effusion and bibasilar atelectasis. 5mm nodule right middle lobe and recommendations are for f/u CT in 6 months. 2 cm nodule in right lobe of thyroid. TSH normal, Free T4 mildly elevated. u/s of the thyroid and further work-up to be done as an outpatient, pt notified and agreeable w plan. CT abd/pelvis: 4mm distal right ureteral stone w mild hydronephrosis. probable bilateral adrenal adenomas. diverticulosis without evidence of diverticulitis. Possible mucosal lesion of the transverse colon. Pt will need further eval via colonoscopy which can be done as an outpatient. Pt tells me that he follows w the [facility]. Pt was seen by Dr. Funez in 2016 per records here. Colonoscopy at the time showed diverticulosis and internal hemorrhoids, prep was suboptimal. Pt instructed to f/u w him regarding CT findings. PSA normal = Patient agrees to follow up with primary care for monitoring of thyroid nodule , follow-up CT chest, colonoscopy.. = For Proteus bacteremia, patient has had 8 days of treatment with IV antibiotics so far. Echocardiogram negative for vegetation. Repeat cultures negative. Would like to send him home on Levaquin to complete course, however most recent QTC 498. We'll repeat EKG now the patient is off tikosyn. = 01/26. QTC 480s. Levaquin poor choice for patient with elevated QTC who came in with cardiac arrest. We'll keep on ceftriaxone in the hospital. Expect that we can get a PICC line placed tomorrow morning, possibly go home tomorrow. Daughter at bedside agreeable with plan for outpatient infusion. = 01/27. Discussed with infectious disease. Waiting to find out options for IV infusion as outpatient. Appreciate case management assistance. //Pulmonary nodules-repeat CT scan 6 months, patient aware. //Insulin-dependent diabetes mellitus- SSI, Accu-Checks, glipizide on hold //Renal dysfunction. Creatinine 1.3 around chronic baseline. Patient has some edema in the extremities, says he is drinking a lot. Suspect secondary to mild fluid overload. We'll hold off on extra fluids, placed on moderate fluid restrictions. //FEN Heart healthy diet/ADA 1999 Electrolytes: Monitor and replete when necessary No IV fluids at this time Anticoagulation with SCDs Discharge Planning Patient will need PICC versus midline, ceftriaxone for 4 more days. Infectious disease we'll order line, outpatient IV infusion protocol. Patient can likely go home today when arrangements have been made Nato Ortiz MD Jan 27, 2017 09:24
--- NOTE | 2017-01-27 09:46 | PD.CARD.PN ---
Subjective Subjective Remarks No chest pain/SOB No fevers/chills Doing well, up to chair Objective Medications Current Medications Medications (Trade) Dose Ordered Sig/Jaz Route Start Time Stop Time Status Last Admin (Lipitor) 80 mg HS PO 01/18/17 21:00 01/26/17 21:47 (Cardizem Cd) 180 mg DAILY PO 01/18/17 09:00 01/27/17 08:07 (Tikosyn) 500 mcg BID PO 01/18/17 09:00 Future Hold (Lasix) 40 mg DAILY PO 01/18/17 09:00 01/27/17 08:07 (Keppra) 1,000 mg BID PO 01/18/17 09:00 01/27/17 08:08 (Nitrostat Sl) 0.4 mg Q15M PRN SL 01/17/17 21:45 (KCl) 20 meq Q12HR PO 01/18/17 09:00 01/27/17 08:08 (Toprol Xl) 200 mg DAILY PO 01/18/17 09:00 01/27/17 08:07 (Protonix) 20 mg DAILY PO 01/18/17 09:00 01/27/17 08:08 (NS Flush) 2 ml UNSCH PRN IV FLUSH 01/17/17 21:45 (NS Flush) 2 ml BID IV FLUSH 01/18/17 09:00 01/27/17 08:09 (Tylenol) 650 mg Q4H PRN PO 01/17/17 21:45 (Zofran Inj) 4 mg Q6H PRN IVP 01/17/17 21:45 (Narcan Inj) 0.4 mg UNSCH PRN IV PUSH 01/17/17 21:45 (Milk Of Magnesia Liq) 30 ml Q12H PRN PO 01/17/17 21:45 (Dulcolax Supp) 10 mg DAILY PRN RECTAL 01/17/17 21:45 (Lactulose Liq) 30 ml DAILY PRN PO 01/17/17 21:45 Sodium Chloride 500 ml @ 500 mls/hr BOLUS PRN IV 01/18/17 01:00 01/18/17 01:40 (D50w (Vial) Inj) 50 ml UNSCH PRN IV PUSH 01/18/17 09:00 (Glucagon Inj) 1 mg UNSCH PRN OTHER 01/18/17 09:00 (NovoLOG SUPPLEMENTAL SCALE) 1 ACHS SLIDING SCALE SQ 01/18/17 12:00 01/27/17 08:07 Ceftriaxone Sodium 2000 mg/ Sodium Chloride 100 ml @ 200 mls/hr Q24H IV 01/20/17 21:00 01/26/17 21:47 (Prinivil) 10 mg DAILY PO 01/22/17 15:30 01/27/17 08:08 (Ingrid-Colace) 1 tab BID PRN PO 01/22/17 15:15 (Xarelto) 20 mg HS PO 01/26/17 21:00 01/26/17 21:46 Vital Signs / I&O Vital Signs Date Time Temp Pulse Resp B/P (MAP) Pulse Ox O2 Delivery O2 Flow Rate FiO2 01/27/17 08:56 97.8 60 18 130/70 (90) 97 01/27/17 08:56 97 Room Air 01/27/17 06:00 60 01/27/17 05:00 60 01/27/17 04:00 60 01/27/17 03:00 60 01/27/17 03:00 97.7 62 16 121/58 (79) 97 01/27/17 03:00 97 Room Air 01/27/17 02:00 60 01/27/17 01:00 70 01/27/17 00:00 60 01/26/17 23:00 98 Room Air 01/26/17 23:00 60 01/26/17 23:00 97.4 61 16 124/63 (83) 98 01/26/17 22:00 60 01/26/17 21:00 60 01/26/17 20:22 98 21 01/26/17 20:00 60 01/26/17 19:00 97.8 60 18 124/62 (82) 96 01/26/17 19:00 60 01/26/17 19:00 60 01/26/17 19:00 96 Room Air 01/26/17 18:00 64 01/26/17 17:00 62 01/26/17 16:55 95.2 59 18 123/74 (90) 98 01/26/17 16:00 59 01/26/17 15:00 70 01/26/17 15:00 98 Room Air 01/26/17 14:00 70 01/26/17 13:00 60 01/26/17 12:00 65 01/26/17 12:00 95.4 60 18 107/55 (72) 98 01/26/17 11:00 66 01/26/17 11:00 98 Room Air 01/26/17 10:00 60 I/O 01/26/17 01/26/17 01/26/17 01/27/17 01/27/17 01/27/17 07:00 15:00 23:00 07:00 15:00 23:00 Intake Total 480 ml 480 ml 480 ml Output Total 1525 ml 900 ml Balance -1045 ml 480 ml -420 ml Intake Oral 480 ml 480 ml 480 ml Output Urine Total 1525 ml 900 ml Physical Exam GENERAL: NAD, AAOx3 SKIN: Warm and dry. HEAD: Atraumatic. Normocephalic. EYES: Pupils equal and round. No scleral icterus. No injection or drainage. ENT: No nasal bleeding or discharge. Mucous membranes pink and moist. NECK: Trachea midline. No JVD. CARDIOVASCULAR: Regular rate and rhythm. RESPIRATORY: No accessory muscle use. Clear to auscultation. Breath sounds equal bilaterally. GASTROINTESTINAL: Abdomen soft, non-tender, nondistended. Hepatic and splenic margins not palpable. MUSCULOSKELETAL: Extremities without clubbing, cyanosis, or edema. No obvious deformities. NEUROLOGICAL: Awake and alert. No obvious cranial nerve deficits. Motor grossly within normal limits. Five out of 5 muscle strength in the arms and legs. Normal speech. PSYCHIATRIC: Appropriate mood and affect; insight and judgment normal. Laboratory Laboratory Tests Test 01/27/17 06:06 White Blood Count 9.1 TH/MM3 Red Blood Count 3.98 MIL/MM3 Hemoglobin 12.3 GM/DL Hematocrit 36.8 % Mean Corpuscular Volume 92.6 FL Mean Corpuscular Hemoglobin 31.0 PG Mean Corpuscular Hemoglobin Concent 33.5 % Red Cell Distribution Width 15.9 % Platelet Count 166 TH/MM3 Mean Platelet Volume 7.8 FL Neutrophils (%) (Auto) 77.7 % Lymphocytes (%) (Auto) 12.3 % Monocytes (%) (Auto) 8.5 % Eosinophils (%) (Auto) 1.0 % Basophils (%) (Auto) 0.5 % Neutrophils # (Auto) 7.1 TH/MM3 Lymphocytes # (Auto) 1.1 TH/MM3 Monocytes # (Auto) 0.8 TH/MM3 Eosinophils # (Auto) 0.1 TH/MM3 Basophils # (Auto) 0.0 TH/MM3 CBC Comment DIFF FINAL Differential Comment Blood Urea Nitrogen 25 MG/DL Creatinine 1.32 MG/DL Random Glucose 153 MG/DL Albumin 3.0 GM/DL Calcium Level 9.4 MG/DL Phosphorus Level 4.6 MG/DL Magnesium Level 2.4 MG/DL Sodium Level 136 MEQ/L Potassium Level 5.0 MEQ/L Chloride Level 99 MEQ/L Carbon Dioxide Level 30.0 MEQ/L Anion Gap 7 MEQ/L Estimat Glomerular Filtration Rate 52 ML/MIN Assessment and Plan Problem List: (1) Bacteremia ICD Codes: R78.81 - Bacteremia (2) AICD discharge ICD Codes: Z45.02 - Encounter for adjustment and management of automatic implantable cardiac defibrillator (3) Elevated troponin ICD Codes: R74.8 - Abnormal levels of other serum enzymes Status: Acute (4) Cardiomyopathy with implantable cardioverter-defibrillator ICD Codes: I42.9 - Cardiomyopathy, unspecified; Z95.810 - Presence of automatic (implantable) cardiac defibrillator Status: Acute (5) Urinary tract infection ICD Codes: N39.0 - Urinary tract infection, site not specified (6) DM2 (diabetes mellitus, type 2) ICD Codes: E11.9 - Type 2 diabetes mellitus without complications Status: Chronic Assessment and Plan 1) AICD firing for Vfib Cardiac cath with no lesion to intervene on, con't medical management 2) UTI 3) Sepsis Blood cultures positive for gram negative rods which have since cleared Lactic acidosis 4) Thrombocytopenia Platelets back to normal Most likely secondary to sepsis 5) Afib Will plan to hold Tikosyn for now due to ventricular arrhythmias Discussed with Dr. Myrick 6) QTc mildly prolonged EGKs in the past have had a similar QTc length without problem 7) No further cardiovascular work up Concern for placing on QT prolonging antibiotics, primary team/ID working on home antibiotics No Tikosyn on discharge Sid Harrison DO Jan 27, 2017 09:46
--- NOTE | 2017-01-27 10:29 | HHI.FF ---
Infusion Therapy Location of Infusion Therapy: Home Health Care IV Infusion Order Patient Information Appointment Date: Jan 27, 2017 Patient Weight 94.6 kg Diagnosis: Diagnosis Proteus bacteremia Coded Allergies: No Known Allergies (Verified Allergy, Unknown, 01/17/17) Administer Medication Ceftriaxone 2 grams IV q 24 hours Start Treatment: Jan 27, 2017 Stop Treatment: Feb 02, 2017 Additional Information Venous access: Other (Midline) Additional Instructions [x] Peripheral flush and dressing changes per protocol [x] Implanted port and central sock liner: * Implanted port: 10 ml Normal Saline followed by 5 ml Heparin 100 units/ml Heparin flush after each use and monthly to maintain. [] May leave port accessed during therapy. [] May leave peripheral site accessed for duration of therapy. [x] If patient has SOB or respiratory distress, check oxygen saturation. If less than 90% or clinical signs of respiratory distress, administer oxygen at 2 L/min. via nasal cannula and notify physician. [x] Anaphylaxis/Reaction orders: * Stop infusion. * Keep IV line open with saline flush. * Notify physician. * Monitor vital signs every 15 minutes until symptoms resolve. * Check Oxygen saturation; Oxygen at 2 L/min. via nasal cannula if less than 90% or clinical signs of respiratory distress. * Administer diphenhydramine (Benadryl) 25 mg IV STAT, (unless patient has received as pre-med). May repeat once, if necessary. * Solu-Cortef 250 mg IVP over 30-60 seconds, use 100 mg vials for each dissolution. * Epinephrine (1mg/1 ml) 0.3 mg subcutaneously or IVP now with any signs of respiratory distress. * Check with physician for new additional pre-med orders if patient is re- challenged or re-treated. [x] May remove PICC line when treatment complete, after confirming with Physician. [x] If the patient is admitted to the hospital, the ED, or transferred via [facility] , complete transfer form including medication reconciliation order sheet. Laboratory Tests Weekly Labs: CBC w/diff, Creatinine Additional Information Please draw labs on 01/30/17, Call with abnormals, change in clinical condition or problems to: or covering ID physician Counseling: Counseled about medication side effects Counseled about PICC line care and hand hygiene. Shaniqua Kumar MD Jan 27, 2017 10:29
[2017-01-27] MEDS ORDERED: SOLU250I IV PUSH (10:32)
[2017-01-27] MEDS ORDERED: EPIN1INJ21 IV PUSH (10:32)
[2017-01-27] MEDS ORDERED: EPIN1INJ21 SQ (10:32)
[2017-01-27] MEDS ORDERED: CEFT2INJ IV (10:32)
--- NOTE | 2017-01-27 11:43 | HHI.FF ---
Face to Face Verification Diagnosis: (1) Chronic systolic congestive heart failure (2) Diabetes mellitus type 2, uncontrolled Physical Therapy Order: Evaluate and Treat Home Health Nursing Order: Diabetic education Nursing assessment with vital signs Instructions: She'll need home health nursing for medication management. Patient will also need fluid restrictions of 1800 mL daily, daily weights. Patient to call primary care doctor if weight goes up by more than 3 pounds in 2 days, or more than 5 pounds in a week. [employer] Service Manager Order: To Provide: Long range planning I have seen patient Triston Bolton on 01/27/17. My clinical findings support the need for the requested home health care services because: Limited ability to care for self I certify that my clinical findings support that this patient is homebound because: Unsafe to leave home unassisted Nato Ortiz MD Jan 27, 2017 11:43
[2017-01-27] MEDS ORDERED: WALKER WHEELS/F1 MIS (12:00)
--- NOTE | 2017-01-27 12:13 | HHI.DS ---
Discharge Summary Admission Date Jan 17, 2017 at 20:44 Discharge Date: Jan 27, 2017 Admitting Diagnosis sepsis; aicd vfib; lactic acidosis; elevated troponin I (1) Urinary tract infection ICD Code: N39.0 - Urinary tract infection, site not specified (2) Ventricular fibrillation ICD Code: I49.01 - Ventricular fibrillation; Z95.810 - Presence of automatic ( implantable) cardiac defibrillator Status: Acute (3) DM2 (diabetes mellitus, type 2) ICD Code: E11.9 - Type 2 diabetes mellitus without complications Status: Chronic (4) CAD (coronary artery disease) ICD Code: I25.10 - CAD (coronary artery disease) Status: Chronic (5) Chronic systolic congestive heart failure ICD Code: I50.22 - Chronic systolic congestive heart failure Status: Chronic (6) elevated troponin I rule out non-ST elevation, acute coronary syndrome Status: Acute Procedures Cardiac catheterization. Please see report. Brief History - From Admission 76-year-old male with a past medical history significant for CHF, CAD and A. fib anticoagulated on Xarelto with insulin-dependent diabetes mellitus presents to the emergency department after his defibrillator went off 13 times. The patient states that he was going to get out of bed this morning when he was shocked. He states he was shocked many times after that. Interrogation of his defibrillator revealed 13 shocks for V. fib. The patient also was febrile yesterday and has a leukocytosis to 20. Chest x-ray within normal limits. Urine pending. Lactic acid 7.5. CBC/BMP: 01/27/17 0606 01/27/17 0606 Significant Findings Laboratory Tests Test 01/25/17 04:09 01/26/17 06:15 01/27/17 06:06 Red Blood Count 3.92 MIL/MM3 (4.50-5.90) 4.01 MIL/MM3 (4.50-5.90) 3.98 MIL/MM3 (4.50-5.90) Hemoglobin 12.2 GM/DL (13.0-17.0) 12.4 GM/DL (13.0-17.0) 12.3 GM/DL (13.0-17.0) Hematocrit 36.1 % (39.0-51.0) 37.2 % (39.0-51.0) 36.8 % (39.0-51.0) Neutrophils (%) (Auto) 77.0 % (16.0-70.0) 77.7 % (16.0-70.0) Monocytes (%) (Auto) 8.6 % (0.0-8.0) 8.5 % (0.0-8.0) Blood Urea Nitrogen 21 MG/DL (7-18) 25 MG/DL (7-18) Random Glucose 117 MG/DL (74-106) 153 MG/DL (74-106) Estimat Glomerular Filtration Rate 59 ML/MIN (>89) 52 ML/MIN (>89) Creatinine 1.32 MG/DL (0.60-1.30) Albumin 3.0 GM/DL (3.4-5.0) Imaging Last Impressions Chest CT 01/20/17 0000 Signed Impressions: Service Date/Time: Saturday, January 21, 2017 00:38 - CONCLUSION: 1. Small bilateral effusions and bibasilar atelectasis 2. 5 mm nodule right middle lobe. Followup CT scan in 6 months is recommended. 3. 2 cm nodule right lobe of the thyroid. Ultrasound examination is recommended if clinically indicated. Ashutosh Read MD Abdomen/Pelvis CT 01/20/17 0000 Signed Impressions: Service Date/Time: Saturday, January 21, 2017 00:38 - CONCLUSION: 1. 4 mm distal right ureteral stone with mild hydronephrosis 2. 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 Diverticulosis without evidence of diverticulitis. Possible mucosal lesion of the transverse colon. Colonoscopy is recommended for further evaluation if clinically indicated. Ashutosh Read MD Chest X-Ray 01/17/17 1839 Signed Impressions: Service Date/Time: Tuesday, January 17, 2017 19:11 - CONCLUSION: Stable cardiomegaly. Left subclavian bipolar pacer Franco Shore MD Hospital Course 76-year-old male presents to the emergency department after his defibrillator went off 13 times for ventricular fibrillation. Cardiology was consulted. Patient underwent cardiac catheterization, which found no intrarenal disease. Tikosyn was discontinued due to possibly causing ventricular arrhythmia. Patient also had sepsis on admission secondary to pneumonia versus UTI. Infectious disease was consulted, patient placed on broad-spectrum antibiotics. Blood cultures grew out Proteus, however repeat cultures negative. Patient will need to continue on ceftriaxone to complete treatment course as per infectious disease. Patient likely had some fluid overload on admission with small bilateral pleural effusions. So with acute kidney injury with creatinine in the twos, Improved with diuresis. He will need repeat labs as outpatient. He'll go home on fluid restrictions. -Patient was found to have incidental findings on CT abdomen, which shows possible mucosal lesion in the transverse colon. Recommendation for colonoscopy as outpatient. He also had incidental finding of pulmonary nodule as above, we'll need repeat imaging for this in 6 months. For problem-based summary for most recent progress note, please see below. //Ventricular fibrillation Pacemaker interrogated, 13 defibrillations for V. fib, Elevated cardiac enzymes. Appropriate shocks given. Cardiology following, Dr. Stallings also saw the patient. Stop Tikosyn, might need AV node modification if with recurrence of arrhythmia. Plan for cardiac catheterization . - Continue Lasix, lisinopril, metoprolol, Cardizem. Heparin per cardio, as patient will go for cardiac cath CAD/CHF/A. fib Holding Xarelto. Restart discharge. Continue metoprolol, lisinopril, Lasix,, Cardizem. = 01/26 Start back on Xarelto = 01/27. Continue medications as ordered. //Proteus bacteremia- versus GI source, infectious disease is following, continue ceftriaxone, repeat blood cultures from 01/20/17 negative so far, echocardiogram unremarkable, no vegetation, leukocytosis resolved. We'll discuss with infectious disease. Etiology unclear, CT chest shows small B effusion and bibasilar atelectasis. 5mm nodule right middle lobe and recommendations are for f/u CT in 6 months. 2 cm nodule in right lobe of thyroid. TSH normal, Free T4 mildly elevated. u/s of the thyroid and further work-up to be done as an outpatient, pt notified and agreeable w plan. CT abd/pelvis: 4mm distal right ureteral stone w mild hydronephrosis. probable bilateral adrenal adenomas. diverticulosis without evidence of diverticulitis. Possible mucosal lesion of the transverse colon. Pt will need further eval via colonoscopy which can be done as an outpatient. Pt tells me that he follows w the [facility]. Pt was seen by Dr. Funez in 2016 per records here. Colonoscopy at the time showed diverticulosis and internal hemorrhoids, prep was suboptimal. Pt instructed to f/u w him regarding CT findings. PSA normal = Patient agrees to follow up with primary care for monitoring of thyroid nodule , follow-up CT chest, colonoscopy.. = For Proteus bacteremia, patient has had 8 days of treatment with IV antibiotics so far. Echocardiogram negative for vegetation. Repeat cultures negative. Would like to send him home on Levaquin to complete course, however most recent QTC 498. We'll repeat EKG now the patient is off tikosyn. = 01/26. QTC 480s. Levaquin poor choice for patient with elevated QTC who came in with cardiac arrest. We'll keep on ceftriaxone in the hospital. Expect that we can get a PICC line placed tomorrow morning, possibly go home tomorrow. Daughter at bedside agreeable with plan for outpatient infusion. = 01/27. Discussed with infectious disease. Waiting to find out options for IV infusion as outpatient. Appreciate case management assistance. //Pulmonary nodules-repeat CT scan 6 months, patient aware. //Insulin-dependent diabetes mellitus- SSI, Accu-Checks, glipizide on hold //Renal dysfunction. Creatinine 1.3 around chronic baseline. Patient has some edema in the extremities, says he is drinking a lot. Suspect secondary to mild fluid overload. We'll hold off on extra fluids, placed on moderate fluid restrictions. //FEN Heart healthy diet/ADA 1999 Electrolytes: Monitor and replete when necessary No IV fluids at this time Anticoagulation with SCDs Discharge Planning Patient will need PICC versus midline, ceftriaxone for 4 more days. Infectious disease we'll order line, outpatient IV infusion protocol. Patient can likely go home today when arrangements have been made Pt Condition on Discharge: Good Discharge Disposition: Disch w/ Home Health Serv Discharge Time: > 30 minutes Discharge Instructions DIET: Follow Instructions for: Heart Healthy Diet Fluid Restrictions: 1800 ML Activities you can perform: Regular-No Restrictions Follow up Referrals: Cardiology - 1 Week with Leonel Myrick MD Gastroenterology PCP Follow-up - 1 Week with Do Teja Beach MD New Orders: BASIC METABOLIC PROF - 2-3 Days New Medications: Ceftriaxone Inj (Ceftriaxone Inj) 2 Gram Inj 2 GM IV Q24H for Infection for 6 Days, VIAL 0 Refills Epinephrine Inj (Epinephrine Inj) 1 Mg/Ml (1 Ml) Inj 0.3 MG IV PUSH ONCE PRN for ALLERGIC REACTION, #1 VIAL Epinephrine Inj (Epinephrine Inj) 1 Mg/Ml (1 Ml) Inj 0.3 MG SQ ONCE PRN for ALLERGIC REACTION, #1 VIAL Give with any signs of respiratory distress. Hydrocortisone Inj (Solu-Cortef Inj) 250 Mg/2 Ml Inj 250 MG IV PUSH ONCE PRN for ALLERGIC REACTION, #1 VIAL 0 Refills Give over 30-60 seconds. Walker with Front Wheels (Walker with Front Wheels) 1 Mis Mis EA .ROUTE DIRECTED, #1 0 Refills Continued Medications: Atorvastatin (Atorvastatin) 80 Mg Tab 80 MG PO HS for Cholesterol Management, TAB Diltiazem CD 24 HR (Cardizem CD 24 HR) 180 Mg Caper 180 MG PO DAILY, CAP 0 Refills Furosemide (Lasix) 40 Mg Tab 40 MG PO DAILY, TAB Glipizide (Glipizide) 5 Mg Tab 5 MG PO DAILY for Blood Sugar Management, TAB 0 Refills Take 30 minutes before a meal Insulin Human NPH Inj (Humulin N Inj) 1,000 Unit/10 Ml Vial UNITS SQ DIRECTED for Blood Sugar Management, ML 0 Refills Levetiracetam (Keppra) 500 Mg Tab 1000 MG PO BID for seizure, #60 TAB Metoprolol Succinate ER 24 HR (Metoprolol Succinate ER 24 HR) 200 Mg Tab 200 MG PO DAILY, TAB 0 Refills Nitroglycerin SL (Nitroglycerin SL) 0.4 Mg Subl 0.4 MG SL DIRECTED PRN for CHEST PAIN, TAB.SL 0 Refills ONE TABLET UNDER THE TONGUE NEEDED FOR CHEST PAIN, MAY REPEAT EVERY FIVE MINUTES FOR A TOTAL OF 3 DOSES OR CALL 911 IF NO RELIEF Omeprazole (Omeprazole) 20 Mg Tab 20 MG PO DAILY, TAB 0 Refills Potassium Chloride Microencaps (Klor-Con M20) 20 Meq Tab 20 MEQ PO Q12HR for Electrolyte Replacement, TAB 0 Refills Rivaroxaban (Xarelto) 20 Mg Tab 20 MG PO HS for Blood Clot Prevention, TAB 0 Refills Discontinued Medications: Dofetilide (Tikosyn) 250 Mcg Cap 500 MCG PO BID for atrial fibrillation, #60 CAP Nato Ortiz MD Jan 27, 2017 12:13
--- NOTE | 2017-01-27 13:47 | HHI.IDPN ---
Subjective Subjective Remarks is a 76 y/o CM with PMHx of CHF, CAD and A. fib anticoagulated on Xarelto. cardiac ablation in 2012 and 2016, and insulin-dependent diabetes mellitus. With this background patient presents to the emergency department after his defibrillator went off 13 times. The patient states that he was going to get out of bed this morning when he was shocked. He states he was shocked many times after that. Interrogation of his defibrillator revealed 13 shocks for V. fib. The patient also was febrile yesterday and has a leukocytosis to 20. Chest x-ray within normal limits. Urine pending. Lactic acid 7.5. On admission pt met criteria for sepsis (WBC 20, tachycardia). Sepsis workup was initiated. Blood cultures are now positive for Proteus mirabilis and ID is consulted for the same. Overnight events reviewed. No fever No rash No diarrhea No CP or SOB. Antibiotics Ceftriaxone IV Lines Line sites with no e.o infection. Past Medical History reviewed Allergies: Coded Allergies: No Known Allergies (Verified Allergy, Unknown, 01/17/17) Objective . Vital Signs Date Time Temp Pulse Resp B/P (MAP) Pulse Ox O2 Delivery O2 Flow Rate FiO2 01/27/17 12:30 97 01/27/17 12:08 60 01/27/17 11:20 97.8 62 18 126/66 (86) 97 01/27/17 11:20 97 Room Air 01/27/17 11:00 76 01/27/17 10:00 60 01/27/17 09:00 60 01/27/17 08:56 97.8 60 18 130/70 (90) 97 01/27/17 08:56 97 Room Air 01/27/17 08:00 60 01/27/17 07:00 62 01/27/17 06:00 60 01/27/17 05:00 60 01/27/17 04:00 60 01/27/17 03:00 60 01/27/17 03:00 97.7 62 16 121/58 (79) 97 01/27/17 03:00 97 Room Air 01/27/17 02:00 60 01/27/17 01:00 70 01/27/17 00:00 60 01/26/17 23:00 98 Room Air 01/26/17 23:00 60 01/26/17 23:00 97.4 61 16 124/63 (83) 98 01/26/17 22:00 60 01/26/17 21:00 60 01/26/17 20:22 98 21 01/26/17 20:00 60 01/26/17 19:00 97.8 60 18 124/62 (82) 96 01/26/17 19:00 60 01/26/17 19:00 60 01/26/17 19:00 96 Room Air 01/26/17 18:00 64 01/26/17 17:00 62 01/26/17 16:55 95.2 59 18 123/74 (90) 98 01/26/17 16:00 59 01/26/17 15:00 70 01/26/17 15:00 98 Room Air 01/26/17 14:00 70 01/27/17 01/27/17 01/28/17 15:00 23:00 07:00 Intake Total 250 ml Balance 250 ml IV Total 250 ml . Laboratory Tests Test 01/26/17 06:15 01/27/17 06:06 White Blood Count 8.6 TH/MM3 9.1 TH/MM3 Red Blood Count 4.01 MIL/MM3 3.98 MIL/MM3 Hemoglobin 12.4 GM/DL 12.3 GM/DL Hematocrit 37.2 % 36.8 % Mean Corpuscular Volume 92.7 FL 92.6 FL Mean Corpuscular Hemoglobin 31.0 PG 31.0 PG Mean Corpuscular Hemoglobin Concent 33.5 % 33.5 % Red Cell Distribution Width 16.3 % 15.9 % Platelet Count 156 TH/MM3 166 TH/MM3 Mean Platelet Volume 8.3 FL 7.8 FL Neutrophils (%) (Auto) 77.7 % Lymphocytes (%) (Auto) 12.3 % Monocytes (%) (Auto) 8.5 % Eosinophils (%) (Auto) 1.0 % Basophils (%) (Auto) 0.5 % Neutrophils # (Auto) 7.1 TH/MM3 Lymphocytes # (Auto) 1.1 TH/MM3 Monocytes # (Auto) 0.8 TH/MM3 Eosinophils # (Auto) 0.1 TH/MM3 Basophils # (Auto) 0.0 TH/MM3 CBC Comment DIFF FINAL Differential Comment Laboratory Tests Test 01/27/17 06:06 Blood Urea Nitrogen 25 MG/DL Creatinine 1.32 MG/DL Random Glucose 153 MG/DL Albumin 3.0 GM/DL Calcium Level 9.4 MG/DL Phosphorus Level 4.6 MG/DL Magnesium Level 2.4 MG/DL Sodium Level 136 MEQ/L Potassium Level 5.0 MEQ/L Chloride Level 99 MEQ/L Carbon Dioxide Level 30.0 MEQ/L Anion Gap 7 MEQ/L Estimat Glomerular Filtration Rate 52 ML/MIN Imaging Last Impressions Chest CT 01/20/17 0000 Signed Impressions: Service Date/Time: Saturday, January 21, 2017 00:38 - CONCLUSION: 1. Small bilateral effusions and bibasilar atelectasis 2. 5 mm nodule right middle lobe. Followup CT scan in 6 months is recommended. 3. 2 cm nodule right lobe of the thyroid. Ultrasound examination is recommended if clinically indicated. Ashutosh Read MD Abdomen/Pelvis CT 01/20/17 0000 Signed Impressions: Service Date/Time: Saturday, January 21, 2017 00:38 - CONCLUSION: 1. 4 mm distal right ureteral stone with mild hydronephrosis 2. 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 Diverticulosis without evidence of diverticulitis. Possible mucosal lesion of the transverse colon. Colonoscopy is recommended for further evaluation if clinically indicated. Ashutosh Read MD Chest X-Ray 01/17/17 1839 Signed Impressions: Service Date/Time: Tuesday, January 17, 2017 19:11 - CONCLUSION: Stable cardiomegaly. Left subclavian bipolar pacer Franco Shore MD Physical Exam GENERAL: Obese, well-developed patient, in no apparent distress. SKIN: No rashes, ecchymoses or lesions. Cool and dry. HEAD: Atraumatic. Normocephalic. No temporal or scalp tenderness. EYES: Pupils equal round and reactive. Extraocular motions intact. No scleral icterus. No injection or drainage. ENT: Nose without bleeding, purulent drainage or septal hematoma. Throat without erythema, tonsillar hypertrophy or exudate. Uvula midline. Airway patent. NECK: Trachea midline. Supple, nontender, no meningeal signs. Pacemaker pocket in left chest wall with no e.o infection. CARDIOVASCULAR: HS audible. RESPIRATORY: Clear to auscultation. Breath sounds equal bilaterally. GASTROINTESTINAL: Abdomen soft, non-tender, nondistended. Obese. MUSCULOSKELETAL: Extremities without clubbing, cyanosis, or edema. No joint tenderness, effusion, or edema noted. No calf tenderness. Negative Homans sign bilaterally. Nails with fungal infection. NEUROLOGICAL: Awake and alert. Cranial nerves II through XII intact. Motor and sensory grossly within normal limits. Five out of 5 muscle strength in all muscle groups. Normal speech. Psych cooperative IV line sites with no e.o infection. Assessment & Plan Remarks Sepsis present on admission. Proteus bacteremia source: ? GI vs H/o PUD with GI bleed earlier this year. 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 Elevated CRP. Afib Pacemaker and defibrillator in place. Recs Continue Ceftriaxone IV post hospital infusion orders entered in chart. Patient not a candidate for Levaquin. Infusion orders completed. Midline orders entered. nimco pt and daughter in room: will need colonoscopy with good prep as outpatient with [facility]. nimco Case management. Nimco Saucedo Time spent in excess of 40 mins in DC planning. Will sign off please call back if any change in clinical condition or questions. Shaniqua Kumar MD Jan 27, 2017 13:47
== END 2017-01-27 15:53 | disposition home health service (06) | DRG 280 ==
LOC: NEPC 18:35 → NEDA 20:44 → HCIS 01-18 00:08
PROVIDERS: ADMIT Family Medicine; ATTEND Internal Medicine
PROC: 4B02XTZ Measurement of Cardiac Defibrillator, External Approach (ICD-10-PCS; 2017-01-17)
PROC: B2111ZZ Fluoroscopy of Multiple Coronary Arteries using Low Osmolar Contrast (ICD-10-PCS; 2017-01-24)
PROC: 4A023N7 Measurement of Cardiac Sampling and Pressure, Left Heart, Percutaneous Approach (ICD-10-PCS; principal; 2017-01-24 11:15)
DX: I49.01 Ventricular fibrillation (principal); A41.59 Other Gram-negative sepsis; I21.4 Non-ST elevation (NSTEMI) myocardial infarction; N17.9 Acute kidney failure, unspecified; J18.9 Pneumonia, unspecified organism; E87.2 Acidosis; I11.0 Hypertensive heart disease with heart failure; D69.6 Thrombocytopenia, unspecified; I50.22 Chronic systolic (congestive) heart failure; I42.9 Cardiomyopathy, unspecified; N39.0 Urinary tract infection, site not specified; N13.2 Hydronephrosis with renal and ureteral calculous obstruction; I48.91 Unspecified atrial fibrillation; E11.9 Type 2 diabetes mellitus without complications; G40.909 Epilepsy, unspecified, not intractable, without status epilepticus; R53.1 Weakness; B96.4 Proteus (mirabilis) (morganii) as the cause of diseases classified elsewhere; I25.10 Atherosclerotic heart disease of native coronary artery without angina pectoris; R60.0 Localized edema; K63.9 Disease of intestine, unspecified; N40.0 Benign prostatic hyperplasia without lower urinary tract symptoms; R91.1 Solitary pulmonary nodule; T46.2X5A Adverse effect of other antidysrhythmic drugs, initial encounter; E78.5 Hyperlipidemia, unspecified; K57.90 Diverticulosis of intestine, part unspecified, without perforation or abscess without bleeding; E04.1 Nontoxic single thyroid nodule; Z95.810 Presence of automatic (implantable) cardiac defibrillator; Z86.73 Personal history of transient ischemic attack (TIA), and cerebral infarction without residual deficits; Z95.5 Presence of coronary angioplasty implant and graft; Z87.891 Personal history of nicotine dependence; Z87.11 Personal history of peptic ulcer disease; Z79.02 Long term (current) use of antithrombotics/antiplatelets; Z79.4 Long term (current) use of insulin
CPT/HCPCS: 71010; 71260; 74177; 80048; 80069; 81001; 82550; 82552; 82948; 83605; 83735; 83880; 84153; 84439; 84443; 84484; 85007; 85025; 85027; 85610; 85730; 86140; 87040; 87077; 87086; 87186; 87205; 93005; 93306; 93458; 96365; 99152; 99153; C1769; C1893; J0692; J0696; J1200; J1644; J1815; J2250; J3010; J3475; J7030; J7040; J7050; Q9963; Q9967

== ENCOUNTER 2017-01-30 12:42 | Emergency (ER) | payer MEDICARE, OTHER ==
[~2017-01-30] VITALS: Ht 172.7 cm; Wt 95.5 kg
[2017-01-30] VITALS (7 sets, daily range): BP systolic 98–131; BP diastolic 65–79; PULSE 62–135; RESP 18–20; TEMP 97.9; O2SAT 95–99
[~2017-01-30 12:42] MED LIST changes: +CEFT2INJ IV; -DOFE250 PO; +EPIN1INJ21 IV PUSH; +EPIN1INJ21 SQ; +SOLU250I IV PUSH; +WALKER WHEELS/F1 MIS
[2017-01-30] MEDS ORDERED: SODIUM CHLOR 0.9% 1000 ML INJ 1,000 ML IV ONE ×3 (13:06)
--- NOTE | 2017-01-30 13:09 | PD ---
Physical Exam Date Seen by Provider: Jan 30, 2017 Narrative Patient presents with a chief complaint of tachycardia. This patient had a recent hospitalization for sepsis. He states is his AICD went off 13 times when he was in the hospital. He states that it has not gone off today. However , he was concerned because of the elevated heart rate. He is still getting IV antibiotics. He is also getting IV heparin. Data Data Last Documented VS Vital Signs Date Time Temp Pulse Resp B/P (MAP) Pulse Ox O2 Delivery O2 Flow Rate FiO2 01/30/17 12:44 97.9 135 18 131/70 (90) 95 Room Air Orders Orders Electrocardiogram (01/30/17 13:06) Complete Blood Count With Diff (01/30/17 13:06) Comprehensive Metabolic Panel (01/30/17 13:06) Act Partial Throm Time (Ptt) (01/30/17 13:06) Lactic Acid Sepsis Protocol (01/30/17 13:06) Troponin I (01/30/17 13:06) Urinalysis - C+S If Indicated (01/30/17 13:06) Blood Culture (01/30/17 13:06) Chest, Single Ap (01/30/17 13:06) Blood Glucose (01/30/17 13:06) Ecg Monitoring (01/30/17 13:06) Iv Access Insert/Monitor (01/30/17 13:06) Oximetry (01/30/17 13:06) Oxygen Administration (01/30/17 13:06) Sodium Chlor 0.9% 1000 Ml Inj (Ns 1000 M (01/30/17 13:06) Sodium Chlor 0.9% 1000 Ml Inj (Ns 1000 M (01/30/17 13:06) Sodium Chlor 0.9% 1000 Ml Inj (Ns 1000 M (01/30/17 13:06) MDM Supervised Visit with KATERYNA: No Narrative Course I have initiated a septic workup. He will receive a fluid bolus for the tachycardia. He will go to one of the medical positive for further evaluation and disposition. Nina Triplett MD Jan 30, 2017 13:09
[2017-01-30 13:46] LABS: AUTOMATED NEUTROPHIL # 6.6 TH/MM3 (1.8-7.7); BASOPHIL # 0.1 TH/MM3 (0-0.2); BASOPHIL % 1.1 % (0.0-2.0); EOSINOPHIL % 0.5 % (0.0-4.0); HEMO FLAGS DIFF FINAL; LYMPH % 15.7 % (9.0-44.0); LYMPHOCYTE # 1.4 TH/MM3 (1.0-4.8); MEAN CELL VOLUME 92.7 FL (80.0-100.0); MEAN CORPUSCULAR HGB CONC 33.5 % (32.0-36.0); MONO % 8.6 % (0.0-8.0); NEUT % 74.1 % (16.0-70.0); PLATELET COUNT 279 TH/MM3 (150-450); RED BLOOD COUNT 4.42 MIL/MM3 (4.50-5.90); RED CELL DISTRIBUTION WIDTH 15.9 % (11.6-17.2); WHITE BLOOD COUNT 8.9 TH/MM3 (4.0-11.0)
[2017-01-30 13:52] LABS: BLOOD, URINE NEG (NEG); COMMENT (UR) CATH-CULT NOT IND; CULTURE IF INDICATED CATH CULTURE NOT IND; GLUCOSE,URINE NEG (NEG); KETONE, URINE NEG (NEG); NITRITE,URINE NEG (NEG); URINE COLOR YELLOW (YELLW/STRAW)
[2017-01-30 14:08] LABS: ALKALINE PHOSPHATASE 149 U/L (45-117); ALT (GPT) 51 U/L (12-78); ANION GAP 7 MEQ/L (5-15); AST (GOT) 45 U/L (15-37); BICARBONATE 25.9 MEQ/L (21.0-32.0); BLOOD UREA NITROGEN 27 MG/DL (7-18); CHLORIDE 100 MEQ/L (98-107); GLOMERULAR FILTRATION RATE 43 ML/MIN (>89); SODIUM (NA) 133 MEQ/L (136-145); TOTAL BILIRUBIN ADULT 0.3 MG/DL (0.2-1.0)
[2017-01-30] MEDS ORDERED: SODIUM CHLORID 0.9% 500 ML INJ 500 ML IV ONE (14:15)
[2017-01-30] MEDS ORDERED: DILTIAZEM HCL 25 MG/5 ML VIAL IV PUSH ONE (14:30)
--- NOTE | 2017-01-30 15:20 | RADRPT ---
EXAM DATE/TIME: 01/30/2017 14:11 [facility] COMPARISON: CHEST SINGLE AP, January 17, 2017, 19:11. INDICATIONS : Palpitations MEDICAL HISTORY : Cardiovascular disease. Gastroesophageal reflux disease. Renal calculi.Diabetes. Ulcer. MEDICAL HISTO RY : Cardiovascular disease. Gastroesophageal reflux disease. Renal calculi.Diabetes. Ulcer. SURGICAL HISTORY : Pacemaker. Cholecystectomy. ENCOUNTER: Initial ACUITY: 1 day PAIN SCORE: 0/10 LOCATION: chest FINDINGS: The heart is enlarged. There is a transvenous pacer in good position. The lungs are clear. The exam i s stable compared to previous. There are degenerative changes throughout the thoracic spine. CONCLUSION: 1. Advanced cardiomegaly. 2. Stable compared to previous. Damián Roberts MD on January 30, 2017 at 15:16 Board Certified Radiologist. This report was verified electronically.
[2017-01-30 15:38] LABS: LACTIC ACID GHOST NOT REPORTABLE
[2017-01-30 17:33] LABS: BICARBONATE 26.4 MEQ/L (21.0-32.0); POTASSIUM 4.4 MEQ/L (3.5-5.1)
--- NOTE | 2017-01-30 18:29 | PD ---
HPI Chief Complaint: Cardiac Complaint Time Seen by Provider: 13:38 Travel History International Travel<30 days: No Contact w/Intl Traveler<30days: No Traveled to known affect area: No History of Present Illness HPI Patient is a 76-year-old male who comes in because his heart rate was elevated today. He has a history of heart rate issues and has an AICD, pacemaker implanted. He was here a few days ago with sepsis and was discharged home with a PICC line is still receiving antibiotics. He says he's been feeling well, but when he checked his pulse today noticed that it was rapid. He says that his medications were changed while he was in the hospital, and he has been compliant with them. He denies any chest pain. He denies any shortness of breath. He denies any fever or chills. PFSH Past Medical History Hx Anticoagulant Therapy: Yes Arthritis: Yes Asthma: No Atrial Fibrillation: Yes Autoimmune Disease: No Blood Disorders: No Anxiety: No Depression: No Heart Rhythm Problems: Yes Cancer: No Cardiac Catheterization: Yes (STENT X 3 CAN'T REMEMBER DATE.) Cardiovascular Problems: Yes (A-FIB) High Cholesterol: Yes Chemotherapy: No Chest Pain: No Congestive Heart Failure: Yes COPD: No Cerebrovascular Accident: Yes Coronary Artery Disease: Yes Diabetes: Yes Patient Takes Glucophage: No Diminished Hearing: Yes (WEARS RIGHT HEARING AID) Endocrine: Yes Gastrointestinal Disorders: Yes (GALLSTONES) GERD: Yes Glaucoma: No Genitourinary: No Headaches: No Hepatitis: No Hiatal Hernia: No Heparin Induced Thrombocytopen: No Hypertension: Yes Immune Disorder: No Implanted Vascular Access Dvce: Yes Kidney Stones: No Musculoskeletal: Yes Neurologic: No Psychiatric: No Reproductive: No Respiratory: Yes (CHF) Integumentary: No Immunizations Current: Yes Migraines: No Myocardial Infarction: Yes Radiation Therapy: No Renal Failure: No 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 ) Sickle Cell Disease: No Sleep Apnea: No Thyroid Disease: No Ulcer: Yes (GASTRIC) Tetanus Vaccination: Unknown Influenza Vaccination: No PNEUMOCCOCAL Vaccine (Year): 1 Past Surgical History Abdominal Surgery: Yes (cholecystectomy) AICD: Yes Appendectomy: No Arteriovenous Shunt: No Cardiac Surgery: Yes (STENTS PLACED) Cholecystectomy: Yes Coronary Stent: Yes (1994 /pacer placed 2 yr ago) Ear Surgery: No Endocrine Surgery: No Eye Surgery: Yes (right eye detached retina repair;right eye cataract removal) Genitourinary Surgery: Yes (penile implantation and removal) Gynecologic Surgery: No Insulin Pump: No Joint Replacement: No Neurologic Surgery: Yes (BRAIN SX FOR ABCESS. STENTS PLACED.) Oral Surgery: No Pacemaker: Yes Thoracic Surgery: Yes (AICD) Other Surgery: Yes (BRAIN ABSCESS 1987) Social History Alcohol Use: Yes ("A BEER ONCE OR TWICE A MONTH") Tobacco Use: No Substance Use: No Allergies-Medications (Allergen,Severity, Reaction): Coded Allergies: No Known Allergies (Verified Allergy, Unknown, 01/30/17) Reported Meds & Prescriptions Reported Meds & Active Scripts Active Walker with Front Wheels (Device) 1 Mis Mis Ea .ROUTE DIRECTED Epinephrine Inj 1 Mg/Ml (1 Ml) Inj 0.3 Mg SQ ONCE PRN Give with any signs of respiratory distress. Epinephrine Inj 1 Mg/Ml (1 Ml) Inj 0.3 Mg IV PUSH ONCE PRN Solu-Cortef Inj (Hydrocortisone Sodium Succinate) 250 Mg/2 Ml Inj 250 Mg IV PUSH ONCE PRN Give over 30-60 seconds. Ceftriaxone Inj (Ceftriaxone Sodium) 2 Gram Inj 2 Gm IV Q24H 6 Days Keppra (Levetiracetam) 500 Mg Tab 1,000 Mg PO BID Reported Cardizem CD 24 HR (Diltiazem CD 24 HR) 180 Mg Caper 180 Mg PO DAILY Omeprazole 20 Mg Tab 20 Mg PO DAILY Nitroglycerin SL (Nitroglycerin) 0.4 Mg Subl 0.4 Mg SL DIRECTED PRN ONE TABLET UNDER THE TONGUE NEEDED FOR CHEST PAIN, MAY REPEAT EVERY FIVE MINUTES FOR A TOTAL OF 3 DOSES OR CALL 911 IF NO RELIEF Klor-Con M20 (Potassium Chloride Microencaps) 20 Meq Tab 20 Meq PO Q12HR Glipizide 5 Mg Tab 5 Mg PO DAILY Take 30 minutes before a meal Humulin N Inj (Insulin Human NPH) 1,000 Unit/10 Ml Vial Units SQ DIRECTED Xarelto (Rivaroxaban) 20 Mg Tab 20 Mg PO HS Metoprolol Succinate ER 24 HR (Metoprolol Succinate) 200 Mg Tab 200 Mg PO DAILY Lasix (Furosemide) 40 Mg Tab 40 Mg PO DAILY Atorvastatin (Atorvastatin Calcium) 80 Mg Tab 80 Mg PO HS Review of Systems Except as stated in HPI: all other systems reviewed are Neg General / Constitutional: No: Fever, Chills Eyes: No: Blurred Vision HENT: No: Headaches, Lightheadedness Cardiovascular: Positive: Palpitations, No: Chest Pain or Discomfort Respiratory: No: Shortness of Breath Gastrointestinal: No: Nausea, Vomiting Genitourinary: No: Dysuria Musculoskeletal: No: Myalgias Skin: No Rash, No Change in Pigmentation Neurologic: No: Weakness, Dizziness Physical Exam Narrative GENERAL: Awake and alert, in no acute distress. SKIN: Focused skin assessment warm/dry. HEAD: Atraumatic. Normocephalic. EYES: Pupils equal and round. No scleral icterus. ENT: Mucous membranes pink and moist. NECK: Trachea midline. No JVD. CARDIOVASCULAR: Tachycardia. No murmur appreciated. RESPIRATORY: No accessory muscle use. Clear to auscultation. Breath sounds equal bilaterally. GASTROINTESTINAL: Abdomen soft, non-tender, nondistended. MUSCULOSKELETAL: No obvious deformities. No clubbing. No cyanosis. No edema. NEUROLOGICAL: Awake and alert. No obvious cranial nerve deficits. Motor grossly within normal limits. Normal speech. PSYCHIATRIC: Appropriate mood and affect; insight and judgment normal. Data Data Last Documented VS Vital Signs Date Time Temp Pulse Resp B/P (MAP) Pulse Ox O2 Delivery O2 Flow Rate FiO2 01/30/17 16:14 62 18 98/68 (78) 99 Room Air 01/30/17 12:44 97.9 Orders Orders Electrocardiogram (01/30/17 13:06) Complete Blood Count With Diff (01/30/17 13:06) Comprehensive Metabolic Panel (01/30/17 13:06) Act Partial Throm Time (Ptt) (01/30/17 13:06) Lactic Acid Sepsis Protocol (01/30/17 13:06) Troponin I (01/30/17 13:06) Urinalysis - C+S If Indicated (01/30/17 13:06) Blood Culture (01/30/17 13:06) Blood Glucose (01/30/17 13:06) Ecg Monitoring (01/30/17 13:06) Iv Access Insert/Monitor (01/30/17 13:06) Oximetry (01/30/17 13:06) Oxygen Administration (01/30/17 13:06) Sodium Chlor 0.9% 1000 Ml Inj (Ns 1000 M (01/30/17 13:06) Sodium Chlor 0.9% 1000 Ml Inj (Ns 1000 M (01/30/17 13:06) Sodium Chlor 0.9% 1000 Ml Inj (Ns 1000 M (01/30/17 13:06) Chest, Pa & Lat (01/30/17 13:06) Sodium Chlorid 0.9% 500 Ml Inj (Ns 500 M (01/30/17 14:15) Diltiazem Inj (Cardizem Inj) (01/30/17 14:30) Basic Metabolic Panel (Bmp) (01/30/17 16:12) Troponin I (01/30/17 16:12) Labs Laboratory Tests Test 01/30/17 13:15 01/30/17 13:25 01/30/17 16:15 White Blood Count 8.9 TH/MM3 Red Blood Count 4.42 MIL/MM3 Hemoglobin 13.7 GM/DL Hematocrit 41.0 % Mean Corpuscular Volume 92.7 FL Mean Corpuscular Hemoglobin 31.0 PG Mean Corpuscular Hemoglobin Concent 33.5 % Red Cell Distribution Width 15.9 % Platelet Count 279 TH/MM3 Mean Platelet Volume 7.7 FL Neutrophils (%) (Auto) 74.1 % Lymphocytes (%) (Auto) 15.7 % Monocytes (%) (Auto) 8.6 % Eosinophils (%) (Auto) 0.5 % Basophils (%) (Auto) 1.1 % Neutrophils # (Auto) 6.6 TH/MM3 Lymphocytes # (Auto) 1.4 TH/MM3 Monocytes # (Auto) 0.8 TH/MM3 Eosinophils # (Auto) 0.0 TH/MM3 Basophils # (Auto) 0.1 TH/MM3 CBC Comment DIFF FINAL Differential Comment Activated Partial Thromboplast Time 31.0 SEC Blood Urea Nitrogen 27 MG/DL 26 MG/DL Creatinine 1.56 MG/DL 1.24 MG/DL Random Glucose 190 MG/DL 124 MG/DL Total Protein 7.6 GM/DL Albumin 3.1 GM/DL Calcium Level 9.1 MG/DL 7.7 MG/DL Alkaline Phosphatase 149 U/L Aspartate Amino Transf (AST/SGOT) 45 U/L Alanine Aminotransferase (ALT/SGPT) 51 U/L Total Bilirubin 0.3 MG/DL Sodium Level 133 MEQ/L 139 MEQ/L Potassium Level 6.0 MEQ/L 4.4 MEQ/L Chloride Level 100 MEQ/L 107 MEQ/L Carbon Dioxide Level 25.9 MEQ/L 26.4 MEQ/L Anion Gap 7 MEQ/L 6 MEQ/L Estimat Glomerular Filtration Rate 43 ML/MIN 56 ML/MIN Lactic Acid Level 2.2 mmol/L 1.3 mmol/L Troponin I LESS THAN 0.02 NG/ML 0.03 NG/ML Urine Color YELLOW Urine Turbidity CLEAR Urine pH 5.0 Urine Specific [place] 1.020 Urine Protein TRACE mg/dL Urine Glucose (UA) NEG mg/dL Urine Ketones NEG mg/dL Urine Occult Blood NEG Urine Nitrite NEG Urine Bilirubin NEG Urine Urobilinogen LESS THAN 2.0 MG/DL Urine Leukocyte Esterase TRACE Urine RBC LESS THAN 1 /hpf Urine WBC 6 /hpf Microscopic Urinalysis Comment CATH-CULT NOT IND MDM Medical Decision Making Medical Screen Exam Complete: Yes Emergency Medical Condition: Yes Medical Record Reviewed: Yes Interpretation(s) ECG shows atrial flutter at a rate of 136. Differential Diagnosis Electrolyte abnormality versus pacemaker malfunction versus ACS Narrative Course Patient is a 76-year-old male who comes in because he noticed his heart rate was fast. He really has no symptoms at this time. IV established, labs sent. Labs show a slight elevation in lactic acid 2.2 with a creatinine of 1.57. Patient was given small bolus of IV fluids. He was given a bolus of diltiazem. After 1 dose of diltiazem, his pulse improved to 60 with the repeat EKG showing a paced rhythm. His pacemaker was interrogated and showed no issues. Troponin was negative 2. I spoke with Dr. Fay, the patient's mobile application development lead, who suggests that he double his Cardizem and come see him in the office. He is comfortable with him being discharged at this time. I explained this to the patient and his , they're both comfortable with this plan. They're advised to call Dr. Fay's office and go either tomorrow or Friday. Advised to return as needed for any worsening symptoms. Diagnosis Primary Impression: Atrial flutter Qualified Codes: I48.3 - Typical atrial flutter Patient Instructions: Atrial Flutter (ED), General Instructions Additional Instructions: Double your daily diltiazem dose to 360 mg. Follow-up with Dr. Fay as soon as possible, call his office tomorrow morning. Return to the emergency department as needed for any worsening symptoms. Disposition: 01 DISCHARGE HOME Condition: Stable Vickie Maciel MD Jan 30, 2017 18:29
--- NOTE | 2017-01-31 15:22 | EKG ---
Date Performed: 01/30/2017 Time Performed: 14:04:43 PTAGE: 76 years EKG: SUPRAVENTRICULAR TACHYCARDIA WITH RATE OF 136, POSSIBLE PAROXYSMAL SUPRAVENTRICULAR TACHYCA RDIA VS ATRIAL FLUTTER RIGHT BUNDLE BRANCH BLOCK LEFT AXIS DEVIATION Compared to previous tracing, th e atrial paced rhythm is replaced by a supraventricular tachycardia. ABNORMAL ECG PREVIOUS TRACING 01/25/2017 10.02 DOCTOR: Aram Huerta Interpretating Date/Time 01/31/2017 15:21:10
--- NOTE | 2017-01-31 15:24 | EKG ---
Date Performed: 01/30/2017 Time Performed: 15:18:48 PTAGE: 76 years EKG: ELECTRONIC VENTRICULAR PACEMAKER ABNORMAL RHYTHM ECG Underlying rhythm appears to be atrial flutter. This makes likely that the PREVIOUS TRACING of 01/30 was atrial flutter with 2:1 conduction. This tracing is a vent ricular paced rhythm. PREVIOUS TRACIN01/30/2017 14.04 DOCTOR: Arma Huerta Interpretating Date/Time 01/31/2017 15:23:08
== END 2017-01-30 18:47 | disposition home or self-care (01) ==
LOC: NEPE 12:42
DX: I48.92 Unspecified atrial flutter (principal); R00.0 Tachycardia, unspecified; R00.2 Palpitations; I45.10 Unspecified right bundle-branch block; R94.31 Abnormal electrocardiogram [ECG] [EKG]; I48.91 Unspecified atrial fibrillation; I11.0 Hypertensive heart disease with heart failure; I50.9 Heart failure, unspecified; E11.9 Type 2 diabetes mellitus without complications; Z79.2 Long term (current) use of antibiotics
CPT/HCPCS: 71020; 80053; 81001; 83605; 84484; 85025; 85730; 87040; 93005; 96361; 96374; 99285; J7040; 80048

== ENCOUNTER 2017-02-21 01:50 | Observation (INO) | payer OTHER ==
[~2017-02-21] VITALS: Ht 172.7 cm; Wt 95.0 kg
[2017-02-21 01:57] VITALS: BP 155/93; PULSE 98; RESP 18; TEMP 97.3; O2SAT 98
[2017-02-21 02:25] LABS: AUTOMATED NEUTROPHIL # 7.8 TH/MM3 (1.8-7.7); BASOPHIL % 0.2 % (0.0-2.0); EOSINOPHIL % 0.1 % (0.0-4.0); HEMATOCRIT 39.4 % (39.0-51.0); HEMO FLAGS DIFF FINAL; LYMPH % 10.4 % (9.0-44.0); MEAN CELL VOLUME 93.8 FL (80.0-100.0); MEAN CORPUSCULAR HEMOGLOBIN 32.1 PG (27.0-34.0); MEAN CORPUSCULAR HGB CONC 34.3 % (32.0-36.0); MONO % 10.6 % (0.0-8.0); NEUT % 78.7 % (16.0-70.0); PLATELET COUNT 141 TH/MM3 (150-450); RED CELL DISTRIBUTION WIDTH 15.4 % (11.6-17.2); WHITE BLOOD COUNT 9.9 TH/MM3 (4.0-11.0)
--- NOTE | 2017-02-21 02:38 | RADRPT ---
EXAM DATE/TIME: 02/21/2017 02:28 [facility] COMPARISON: CHEST SINGLE AP, January 17, 2017, 19:11. INDICATIONS : Patient complains of cough and shortness of breath. MEDICAL HISTORY : Cardiovascular disease. Gastroesophageal reflux disease. Renal calculi.Diabetes. Ulcer. MEDICAL HISTO RY : Cardiovascular disease. Gastroesophageal reflux disease. Renal calculi.Diabetes. Ulcer. SURGICAL HISTORY : Pacemaker. Cholecystectomy. ENCOUNTER: Initial ACUITY: 1 week PAIN SCORE: 0/10 LOCATION: chest FINDINGS: Cardiomegaly is noted. There is atelectasis at the right greater than left lung base. Pacer/ICD devic e again noted. Degenerative changes of the spine are seen. There may be a tiny right effusion. CONCLUSION: Right basilar atelectasis and tiny effusion suspected. Willy Hogan MD on February 21, 2017 at 2:37 Board Certified Radiologist. This report was verified electronically.
[2017-02-21 02:46] LABS: ALT (GPT) 36 U/L (12-78); ANION GAP 7 MEQ/L (5-15); AST (GOT) 38 U/L (15-37); BICARBONATE 30.9 MEQ/L (21.0-32.0); BLOOD UREA NITROGEN 17 MG/DL (7-18); CHLORIDE 98 MEQ/L (98-107); GLOMERULAR FILTRATION RATE 38 ML/MIN (>89); POTASSIUM 3.8 MEQ/L (3.5-5.1); SODIUM (NA) 136 MEQ/L (136-145)
[2017-02-21 02:48] LABS: ALKALINE PHOSPHATASE 128 U/L (45-117); TOTAL BILIRUBIN ADULT 0.7 MG/DL (0.2-1.0)
[2017-02-21 03:40] VITALS: BP 156/92; PULSE 112; RESP 18; O2SAT 98
[2017-02-21] MEDS ORDERED: FUROSEMIDE 40 MG/4 ML VIAL IV PUSH ONE (04:00)
--- NOTE | 2017-02-21 04:05 | PD ---
HPI Chief Complaint: Respiratory Symptoms Time Seen by Provider: 03:54 Travel History International Travel<30 days: No Contact w/Intl Traveler<30days: No Traveled to known affect area: No History of Present Illness HPI 76-year-old male came to the emergency room with history of progressive shortness of breath for past 3-4 days. Patient has also noticed swelling of his ankles and legs. He has history of congestive heart failure and thinks that he is getting fluid overloaded. Patient is supposed to be on Lasix 60 mg during the day and 40 at night. This was reduced to 40 mg once a day couple weeks ago. His physician put him on 40 mg twice a day recently but his symptoms have not improved. No history of chest pain. Does not require oxygen at home. He has history of atrial fibrillation and supposed to get a ablation done but patient says he is unable to do it because he cannot lay flat. His road traffic controller is Dr. Echavarria and Dr. Myrick. [facility] Past Medical History Narrative Medical List of his past medical, surgical, social and family history is reviewed from the nursing note. Hx Anticoagulant Therapy: Yes Arthritis: Yes Asthma: No Atrial Fibrillation: Yes Autoimmune Disease: No Blood Disorders: No Anxiety: No Depression: No Heart Rhythm Problems: Yes Cancer: No Cardiac Catheterization: Yes (STENT X 3 CAN'T REMEMBER DATE.) Cardiovascular Problems: Yes (A-FIB) High Cholesterol: Yes Chemotherapy: No Chest Pain: No Congestive Heart Failure: Yes COPD: No Cerebrovascular Accident: Yes Coronary Artery Disease: Yes Diabetes: Yes Patient Takes Glucophage: No Diminished Hearing: Yes (WEARS RIGHT HEARING AID) Endocrine: Yes Gastrointestinal Disorders: Yes (GALLSTONES) GERD: Yes Glaucoma: No Genitourinary: No Headaches: No Hepatitis: No Hiatal Hernia: No Heparin Induced Thrombocytopen: No Hypertension: Yes Immune Disorder: No Implanted Vascular Access Dvce: Yes Kidney Stones: No Musculoskeletal: Yes Neurologic: No Psychiatric: No Reproductive: No Respiratory: Yes (CHF) Integumentary: No Immunizations Current: Yes Migraines: No Myocardial Infarction: Yes Radiation Therapy: No Renal Failure: No 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 ) Sickle Cell Disease: No Sleep Apnea: No Thyroid Disease: No Ulcer: Yes (GASTRIC) Tetanus Vaccination: Unknown PNEUMOCCOCAL Vaccine (Year): 1 Past Surgical History Abdominal Surgery: Yes (cholecystectomy) AICD: Yes Appendectomy: No Arteriovenous Shunt: No Cardiac Surgery: Yes (STENTS PLACED) Cholecystectomy: Yes Coronary Stent: Yes (1995 /pacer placed 2 yr ago) Ear Surgery: No Endocrine Surgery: No Eye Surgery: Yes (right eye detached retina repair;right eye cataract removal) Genitourinary Surgery: Yes (penile implantation and removal) Gynecologic Surgery: No Insulin Pump: No Joint Replacement: No Neurologic Surgery: Yes (BRAIN SX FOR ABCESS. STENTS PLACED.) Oral Surgery: No Pacemaker: Yes Thoracic Surgery: Yes (AICD) Other Surgery: Yes (BRAIN ABSCESS 1987) Social History Alcohol Use: Yes ("A BEER ONCE OR TWICE A MONTH") Tobacco Use: No Substance Use: No Allergies-Medications (Allergen,Severity, Reaction): Coded Allergies: No Known Allergies (Verified Allergy, Unknown, 01/30/17) Comments No known drug allergies. Reported Meds & Prescriptions Reported Meds & Active Scripts Active Torsemide 20 Mg Tab 20 Mg PO BID Lisinopril 10 Mg Tab 10 Mg PO DAILY Walker with Front Wheels (Device) 1 Mis Mis Ea .ROUTE DIRECTED Keppra (Levetiracetam) 500 Mg Tab 1,000 Mg PO BID Reported Cardizem CD 24 HR (Diltiazem CD 24 HR) 180 Mg Caper 180 Mg PO DAILY Omeprazole 20 Mg Tab 20 Mg PO DAILY Nitroglycerin SL (Nitroglycerin) 0.4 Mg Subl 0.4 Mg SL DIRECTED PRN ONE TABLET UNDER THE TONGUE NEEDED FOR CHEST PAIN, MAY REPEAT EVERY FIVE MINUTES FOR A TOTAL OF 3 DOSES OR CALL 911 IF NO RELIEF Klor-Con M20 (Potassium Chloride Microencaps) 20 Meq Tab 20 Meq PO Q12HR Glipizide 5 Mg Tab 5 Mg PO DAILY Take 30 minutes before a meal Humulin N Inj (Insulin Human NPH) 1,000 Unit/10 Ml Vial Units SQ DIRECTED Xarelto (Rivaroxaban) 20 Mg Tab 20 Mg PO HS Metoprolol Succinate ER 24 HR (Metoprolol Succinate) 200 Mg Tab 200 Mg PO DAILY Atorvastatin (Atorvastatin Calcium) 80 Mg Tab 80 Mg PO HS Narrative Medication List of his home medications reviewed from the nursing note. Review of Systems Except as stated in HPI: all other systems reviewed are Neg Respiratory: Positive: Shortness of Breath Musculoskeletal: Positive: Edema Physical Exam Narrative GENERAL: Awake, alert, moderate distress SKIN: Focused skin assessment warm/dry. HEAD: Atraumatic. Normocephalic. EYES: Pupils equal and round. No scleral icterus. No injection or drainage. ENT: No nasal bleeding or discharge. Mucous membranes pink and moist. NECK: Trachea midline. No JVD. CARDIOVASCULAR: Regular rate and rhythm. No murmur appreciated. RESPIRATORY: No accessory muscle use. End expiratory wheeze bilaterally GASTROINTESTINAL: Abdomen soft, non-tender, nondistended. Hepatic and splenic margins not palpable. MUSCULOSKELETAL: No obvious deformities. No clubbing. No cyanosis. 2+ pedal edema bilaterally NEUROLOGICAL: Awake and alert. No obvious cranial nerve deficits. Motor grossly within normal limits. Normal speech. PSYCHIATRIC: Appropriate mood and affect; insight and judgment normal. Data Data Last Documented VS Orders Orders Complete Blood Count With Diff (02/21/17 02:05) Comprehensive Metabolic Panel (02/21/17 02:05) Basic Metabolic Panel (Bmp) (02/21/17 02:05) B-Type Natriuretic Peptide (02/21/17 02:05) Chest, Single Ap (02/21/17 ) Electrocardiogram (02/21/17 ) Furosemide Inj (Lasix Inj) (02/21/17 04:00) Diltiazem (Cardizem) (02/21/17 04:15) Place In Observation (02/21/17 ) Vital Signs (Adult) Q4H (02/21/17 04:18) Activity Oob With Assistance (02/21/17 04:18) Author'S Agent / Telemetry .CONTINUOUS (02/21/17 04:18) Intake + Output BONNIE.QSHIFT (02/21/17 04:18) Diet Heart Healthy (02/21/17 Breakfast) Sodium Chloride 0.9% Flush (Ns Flush) (02/21/17 04:30) Sodium Chloride 0.9% Flush (Ns Flush) (02/21/17 09:00) Creatine Kinase (Cpk) (02/21/17 08:00) Troponin I (02/21/17 08:00) Electrocardiogram (02/21/17 08:00) Pt Request For Service (02/21/17 04:18) Case Management Consult (02/21/17 04:18) Naloxone Inj (Narcan Inj) (02/21/17 04:30) Labs Laboratory Tests Test 02/21/17 02:00 White Blood Count 9.9 TH/MM3 Red Blood Count 4.20 MIL/MM3 Hemoglobin 13.5 GM/DL Hematocrit 39.4 % Mean Corpuscular Volume 93.8 FL Mean Corpuscular Hemoglobin 32.1 PG Mean Corpuscular Hemoglobin Concent 34.3 % Red Cell Distribution Width 15.4 % Platelet Count 141 TH/MM3 Mean Platelet Volume 8.0 FL Neutrophils (%) (Auto) 78.7 % Lymphocytes (%) (Auto) 10.4 % Monocytes (%) (Auto) 10.6 % Eosinophils (%) (Auto) 0.1 % Basophils (%) (Auto) 0.2 % Neutrophils # (Auto) 7.8 TH/MM3 Lymphocytes # (Auto) 1.0 TH/MM3 Monocytes # (Auto) 1.0 TH/MM3 Eosinophils # (Auto) 0.0 TH/MM3 Basophils # (Auto) 0.0 TH/MM3 CBC Comment DIFF FINAL Differential Comment Blood Urea Nitrogen 17 MG/DL Creatinine 1.73 MG/DL Random Glucose 139 MG/DL Total Protein 7.4 GM/DL Albumin 3.7 GM/DL Calcium Level 8.7 MG/DL Alkaline Phosphatase 128 U/L Aspartate Amino Transf (AST/SGOT) 38 U/L Alanine Aminotransferase (ALT/SGPT) 36 U/L Total Bilirubin 0.7 MG/DL Sodium Level 136 MEQ/L Potassium Level 3.8 MEQ/L Chloride Level 98 MEQ/L Carbon Dioxide Level 30.9 MEQ/L Anion Gap 7 MEQ/L Estimat Glomerular Filtration Rate 38 ML/MIN B-Type Natriuretic Peptide 693 PG/ML MDM Medical Decision Making Medical Screen Exam Complete: Yes Emergency Medical Condition: Yes Medical Record Reviewed: Yes Interpretation(s) Twelve-lead EKG was reviewed by me. Blaze. fib, left axis deviation, right bundle branch block, tachycardia. Heart rate of 113 bpm. Differential Diagnosis Congestive heart failure, pneumonia, pleural effusion Narrative Course 4:42 AM blood test results of back and suggestive of congestive heart failure. Chest x-ray suggestive of CHF as well. I've ordered 40 mg of IV Lasix and 90 mg of by mouth Cardizem. In my opinion this patient should be admitted to the hospital since he has been outpatient treatment failure for congestive heart failure also because of this possible ablation that needed to be performed pain she should be seen by Dr. Elen getting treated for the congestive heart failure to get a definitive plan on that. I've explained this to the patient and family and they agree. Procedures EKG Prior to Arrival: No Diagnosis Primary Impression: Respiratory distress Additional Impressions: Atrial fibrillation with RVR Acute exacerbation of CHF (congestive heart failure) Qualified Codes: I50.9 - Heart failure, unspecified Admitting Information Admitting Physician Requests: Admit Scripts Torsemide (Torsemide) 20 Mg Tab 20 MG PO BID for Heart, #180 TAB 3 Refills Prov: Ailyn Lemus DO 02/21/17 Lisinopril (Lisinopril) 10 Mg Tab 10 MG PO DAILY, #30 TAB 4 Refills Prov: Ailyn Lemus DO 02/21/17 Saleem Mcwilliams MD Feb 21, 2017 04:05
[2017-02-21] MEDS ORDERED: DILTIAZEM HCL 90 MG TAB PO ONE (04:15)
[2017-02-21 04:30] VITALS: BP 119/76; PULSE 112; RESP 28; O2SAT 96
[2017-02-21] MEDS ORDERED: NALOXONE HCL 0.4 MG/ML AMP IV PUSH PRN (04:30)
[2017-02-21] MEDS ORDERED: SODIUM CHLORIDE 0.9% FLUSH 10 ML FLUSH IV FLUSH PRN (04:30)
[2017-02-21 05:26] VITALS: BP 133/83
--- NOTE | 2017-02-21 05:39 | HHI.HP ---
HPI [facility] Teja Beach Do, MD Admission Diagnosis congestive heart failure, A. fib with RVR, shortness of breath Diagnoses: Travel History International Travel<30 Days: No Contact w/Intl Traveler <30 Da: No Traveled to Known Affected Are: No History of Present Illness hx from ER MD, nursing staff, patient and review of records sob for 3 days cough with clear sputum no fever has bilateral le swelling havent been able to sleep in bed for 3 days no chest pains no blood in stool or urine was dizzy no strength - cant even shave- have to go from room to room and sit down used to take 60mg po am and 40mg po pm hospital changed to 40mg po daily now pcp changed back to 40mg po bid today took an extra half a pill in mid day before coming to hospital 20yrs ago had cad stenting last stress test was a year ago- thallium stress test Review of Systems Except as stated in HPI: all other systems reviewed are Neg Past Family Social History Past Medical History htn cad- s/p stent 20yrs ago chf afib chronic anticoagulation on xarelto seizures - 1989 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 and has appointment Past Surgical History stents for coronary cholecystectomy Allergies: Coded Allergies: No Known Allergies (Verified Allergy, Unknown, 01/30/17) Family History none that he knows of Social History used to smoke, quit 20yrs ago social drinker no drugs lives by myself, still driving and rides motorcycles Physical Exam Vital Signs Vital Signs Date Time Temp Pulse Resp B/P (MAP) Pulse Ox O2 Delivery O2 Flow Rate FiO2 02/21/17 05:26 114 20 133/83 (100) 96 02/21/17 04:30 112 28 119/76 (90) 96 Nasal Cannula 2.00 02/21/17 03:40 112 18 156/92 (113) 98 Nasal Cannula 2.00 02/21/17 02:00 113 24 98 Aerosol Mask 8.00 02/21/17 01:57 97.3 98 18 155/93 (113) 98 Physical Exam GENERAL: This is a well-nourished, well-developed patient, in no apparent distress. SKIN: No rashes, ecchymoses or lesions. Cool and dry. HEAD: Atraumatic. Normocephalic. No temporal or scalp tenderness. EYES: No scleral icterus. No injection or drainage. ENT: Nose without bleeding, purulent drainage or septal hematoma. Airway patent. NECK: Trachea midline. No JVD CARDIOVASCULAR: Regular rate and rhythm without murmurs, gallops, or rubs. RESPIRATORY: bilateral basilar coarse crepitations GASTROINTESTINAL: Abdomen soft, non-tender, nondistended. No guarding. MUSCULOSKELETAL: Extremities without clubbing, cyanosis, or edema. No calf tenderness. NEUROLOGICAL: Awake and alert. Motor and sensory grossly within normal limits. Normal speech. Laboratory Laboratory Tests Test 02/21/17 02:00 White Blood Count 9.9 Red Blood Count 4.20 Hemoglobin 13.5 Hematocrit 39.4 Mean Corpuscular Volume 93.8 Mean Corpuscular Hemoglobin 32.1 Mean Corpuscular Hemoglobin Concent 34.3 Red Cell Distribution Width 15.4 Platelet Count 141 Mean Platelet Volume 8.0 Neutrophils (%) (Auto) 78.7 Lymphocytes (%) (Auto) 10.4 Monocytes (%) (Auto) 10.6 Eosinophils (%) (Auto) 0.1 Basophils (%) (Auto) 0.2 Neutrophils # (Auto) 7.8 Lymphocytes # (Auto) 1.0 Monocytes # (Auto) 1.0 Eosinophils # (Auto) 0.0 Basophils # (Auto) 0.0 CBC Comment DIFF FINAL Differential Comment Blood Urea Nitrogen 17 Creatinine 1.73 Random Glucose 139 Total Protein 7.4 Albumin 3.7 Calcium Level 8.7 Alkaline Phosphatase 128 Aspartate Amino Transf (AST/SGOT) 38 Alanine Aminotransferase (ALT/SGPT) 36 Total Bilirubin 0.7 Sodium Level 136 Potassium Level 3.8 Chloride Level 98 Carbon Dioxide Level 30.9 Anion Gap 7 Estimat Glomerular Filtration Rate 38 B-Type Natriuretic Peptide 693 Result Diagram: 02/21/17 0200 02/21/17 0200 Imaging Last 48 hours Impressions Chest X-Ray 02/21/17 0000 Signed Impressions: Service Date/Time: Tuesday, February 21, 2017 02:28 - CONCLUSION: Right basilar atelectasis and tiny effusion suspected. Willy Hogan MD Caprini VTE Risk Assessment Caprini VTE Risk Assessment: Mod/High Risk (score >= 2) Caprini Risk Assessment Model Point Value = 1 Point Value = 2 Point Value = 3 Point Value = 5 Age 41-60 Minor surgery BMI > 25 kg/m2 Swollen legs Varicose veins or History of unexplained or recurrent spontaneous Oral contraceptives or hormone replacement Sepsis (< 1 month) Serious lung disease, including pneumonia (< 1 month) Abnormal pulmonary function Acute myocardial infarction Congestive heart failure (< 1 month) History of inflammatory bowel disease Medical patient at bed rest Age 61-74 Arthroscopic surgery Major open surgery (> 45 min) Laparoscopic surgery (> 45 min) Malignancy Confined to bed (> 72 hours) Immobilizing plaster cast Central venous access Age >= 75 History of VTE Family history of VTE Factor V Leiden Prothrombin [id number] Lupus anticoagulant Anticardiolipin antibodies Elevated serum homocysteine Heparin-induced thrombocytopenia Other congenital or acquired thrombophilia Stroke (< 1 month) Elective arthroplasty Hip, pelvis, or leg fracture Acute spinal cord injury (< 1 month) Prophylaxis Regimen Total Risk Factor Score Risk Level Prophylaxis Regimen 0-1 Low Early ambulation 2 Moderate Order ONE of the following: *Sequential Compression Device (SCD) *Heparin 5000 units SQ BID 3-4 Higher Order ONE of the following medications: *Heparin 5000 units SQ TID *Enoxaparin/Lovenox 40 mg SQ daily (WT < 150 kg, CrCl > 30 mL/min) *Enoxaparin/Lovenox 30 mg SQ daily (WT < 150 kg, CrCl > 10-29 mL/min) *Enoxaparin/Lovenox 30 mg SQ BID (WT < 150 kg, CrCl > 30 mL/min) AND/OR *Sequential Compression Device (SCD) 5 or more Highest Order ONE of the following medications: *Heparin 5000 units SQ TID (Preferred with Epidurals) *Enoxaparin/Lovenox 40 mg SQ daily (WT < 150 kg, CrCl > 30 mL/min) *Enoxaparin/Lovenox 30 mg SQ daily (WT < 150 kg, CrCl > 10-29 mL/min) *Enoxaparin/Lovenox 30 mg SQ BID (WT < 150 kg, CrCl > 30 mL/min) AND *Sequential Compression Device (SCD) Assessment and Plan Assessment and Plan Impression: acute on chronic systolic heart failure elevated BNP acute kidney injury htn cad- s/p stent 20yrs ago chf afib chronic anticoagulation on xarelto seizures - 1989 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
--- NOTE | 2017-02-21 07:55 | EKG ---
Date Performed: 02/21/2017 Time Performed: 02:03:35 PTAGE: 76 years EKG: Unclear underlying rhythm due to artifact RIGHT BUNDLE BRANCH BLOCK INFERIOR MYOCARDIAL INF ARCTION Nonspecific ST and T wave abnormalities ABNORMAL ECG Compared to prior electrocardiogram, rat e has increased although I cannot accurately compare rhythm. PREVIOUS TRACING : 01/30/2017 15.18 DOCTOR: Jake Rodarte Interpretating Date/Time 02/21/2017 07:55:01
[2017-02-21 08:24] VITALS: BP 137/73; PULSE 113; RESP 18; TEMP 97.7; O2SAT 95
[2017-02-21] MEDS ORDERED: PANTOPRAZOLE SOD 20 MG DELAYED RELEASE TAB PO SCH (09:00)
[2017-02-21] MEDS ORDERED: FUROSEMIDE 40 MG TAB PO SCH (09:00)
[2017-02-21] MEDS ORDERED: FUROSEMIDE 40 MG/4 ML VIAL IV PUSH SCH ×2 (09:00→18:00)
[2017-02-21] MEDS ORDERED: DILTIAZEM-CD 180 MG CAP ER PO SCH (09:00)
[2017-02-21] MEDS ORDERED: levETIRAcetam 500 MG TAB PO SCH (09:00)
[2017-02-21] MEDS ORDERED: SODIUM CHLORIDE 0.9% FLUSH 10 ML FLUSH IV FLUSH SCH (09:00)
[2017-02-21] MEDS ORDERED: POTASSIUM CHLORIDE 20 MEQ CONTROLLED RELEASE TAB PO SCH (09:00)
[2017-02-21] MEDS ORDERED: METOPROLOL SUCCINATE 50 MG EXTENDED RELEASE TAB PO SCH (09:00)
--- NOTE | 2017-02-21 09:32 | EKG ---
Date Performed: 02/21/2017 Time Performed: 08:23:55 PTAGE: 76 years EKG: atrial fibrillation WITH RAPID VENTRICULAR RESPONSE WITH ABERRANT CONDUCTION OR VENTRICULA R PREMATURE COMPLEXES RIGHT BUNDLE BRANCH BLOCK LEFT ANTERIOR FASCICULAR BLOCK INFERIOR MYOCARDIAL IN FARCTION , PROBABLY OLD Nonspecific ST changes ABNORMAL ECG No significant change from prior electroc ardiogram. PREVIOUS TRACING : 02/21/2017 02.03 DOCTOR: Jake Rodarte Interpretating Date/Time 02/21/2017 09:32:00
[2017-02-21] MEDS ORDERED: FUROSEMIDE 20 MG/2 ML VIAL IV PUSH ONE (10:00)
[2017-02-21 11:53] LABS: CREATINE KINASE 445 U/L (39-308)
[2017-02-21] MEDS ORDERED: LISI10TA3 PO (12:01)
[2017-02-21] MEDS ORDERED: TORS20TA PO (12:02)
[2017-02-21 12:05] LABS: CKMB 1.4 NG/ML (0.5-3.6)
--- NOTE | 2017-02-21 12:13 | HHI.PR ---
Subjective Remarks Follow up for congestive heart failure, acute, systolic. Patient is currently doing well. On room air. Ambulating well. No chest pain, SOB, fever, chills. Objective Vitals Vital Signs Date Time Temp Pulse Resp B/P (MAP) Pulse Ox O2 Delivery O2 Flow Rate FiO2 02/21/17 08:24 97.7 113 18 137/73 (94) 95 02/21/17 05:26 114 20 133/83 (100) 96 02/21/17 04:30 112 28 119/76 (90) 96 Nasal Cannula 2.00 02/21/17 03:40 112 18 156/92 (113) 98 Nasal Cannula 2.00 02/21/17 02:00 113 24 98 Aerosol Mask 8.00 02/21/17 01:57 97.3 98 18 155/93 (113) 98 Result Diagram: 02/21/17 0200 02/21/17 0200 Imaging Last Impressions Chest X-Ray 02/21/17 0000 Signed Impressions: Service Date/Time: Tuesday, February 21, 2017 02:28 - CONCLUSION: Right basilar atelectasis and tiny effusion suspected. Willy Hogan MD Objective Remarks GENERAL: AOX3, NAD. SKIN: Warm and dry. HEAD: Normocephalic. EYES: No scleral icterus. No injection or drainage. NECK: Supple, trachea midline. No JVD or lymphadenopathy. CARDIOVASCULAR: Regular rate and rhythm without murmurs, gallops, or rubs. RESPIRATORY: Breath sounds equal bilaterally. No accessory muscle use. GASTROINTESTINAL: Abdomen soft, non-tender, nondistended. MUSCULOSKELETAL: No cyanosis. 1+ lower ext edema. BACK: Nontender without obvious deformity. No CVA tenderness. Procedures None. A/P Problem List: (1) Ischemic cardiomyopathy ICD Code: I25.5 - Ischemic cardiomyopathy Status: Chronic (2) Afib ICD Code: I48.91 - Unspecified atrial fibrillation Status: Chronic (3) CHF exacerbation ICD Code: I50.9 - Heart failure, unspecified Status: Acute Assessment and Plan Mr. Bolton is a pleasant 76 year old male with a history of ischemic cardiomyopathy, Afib, CHF who presented to the hospital on 02/21/2017 due to progressive dyspnea. He also noted lower ext swelling. He states that his Lasix was reduced from total 100mg ( 60mg QAM, 40mg PM) to 40mg QAM only. Patient improved with diuresis. He is not requiring any supplemental O2. - Acute systolic congestive heart failure exacerbation - EF in 03/2016 about 25%. Patient has an AICD. - Continue Xarelto, BB, Lipitor - Will start patient on Lisinopril 10mg Qday which can be up-titrated. - Patient will follow up with his pct. Entresto could be considered in future as well. - Atrial fibrillation - Rate controlled with BB and CCB - Continue Xarelto. - NARCISO - Creatinine 1.73. This could potentially be from CHF effects. With proper diuresis, renal perfusion actually may improve. - Outpatient nephrology follow up may be considered for likely CKD. - Diabetes mellitus - continue home meds including NPH, Glipizide. - Chronic seizure - continue Keppra. Full code. Xarelto. Discharge patient to home Condition on discharge: Improved Heart healthy Diet as tolerated Ad Pia activity Rx written: New Medications: Lisinopril 10 Mg Tab Torsemide 20 Mg Tab Continued Medications: Atorvastatin 80 Mg Tab Diltiazem CD 24 HR (Cardizem CD 24 HR) 180 Mg Caper Glipizide 5 Mg Tab Take 30 minutes before a meal Insulin Human NPH Inj (Humulin N Inj) 1,000 Unit/10 Ml Vial Levetiracetam (Keppra) 500 Mg Tab Metoprolol Succinate ER 24 HR 200 Mg Tab Nitroglycerin SL 0.4 Mg Subl ONE TABLET UNDER THE TONGUE NEEDED FOR CHEST PAIN, MAY REPEAT EVERY FIVE MINUTES FOR A TOTAL OF 3 DOSES OR CALL 911 IF NO RELIEF Omeprazole 20 Mg Tab Potassium Chloride Microencaps (Klor-Con M20) 20 Meq Tab Rivaroxaban (Xarelto) 20 Mg Tab Discontinued Medications: Ceftriaxone Inj 2 Gram Inj Epinephrine Inj 1 Mg/Ml (1 Ml) Inj Epinephrine Inj 1 Mg/Ml (1 Ml) Inj Give with any signs of respiratory distress. Furosemide (Lasix) 40 Mg Tab Hydrocortisone Inj (Solu-Cortef Inj) 250 Mg/2 Ml Inj Give over 30-60 seconds. Follow-up with primary care physician PRN, Cardiology within two weeks. Ailyn Lemus DO Feb 21, 2017 12:13 pm
[2017-02-21 12:17] VITALS: BP 125/76; PULSE 108; RESP 18; TEMP 97.8; O2SAT 94
[2017-02-21] MEDS ORDERED: RIVAROXABAN 20 MG TAB PO SCH (21:00)
[2017-02-21] MEDS ORDERED: ATORVASTATIN 80 MG TAB PO SCH (21:00)
== END 2017-02-21 13:57 | disposition home or self-care (01) ==
LOC: NEPC 01:50 → NEDA 04:22 → INTOOBSV 04:22 → N05B 06:00
PROVIDERS: ADMIT Hospitalist; ATTEND Hospitalist
DX: I11.0 Hypertensive heart disease with heart failure (principal); I50.23 Acute on chronic systolic (congestive) heart failure; I48.91 Unspecified atrial fibrillation; I25.10 Atherosclerotic heart disease of native coronary artery without angina pectoris; N17.9 Acute kidney failure, unspecified; Z95.5 Presence of coronary angioplasty implant and graft; Z79.01 Long term (current) use of anticoagulants
CPT/HCPCS: 71010; 80053; 82550; 82552; 83880; 84484; 85025; 93005; 96374; 96376; 97162; 99285; G0378; G8987; G8988; J1940

== ENCOUNTER 2017-03-11 11:45 | Inpatient (IN) | payer OTHER, MEDICARE ==
[2017-03-11] VITALS (10 sets, daily range): BP systolic 90–126; BP diastolic 55–84; PULSE 60–117; RESP 16–20; TEMP 97.6–97.8; O2SAT 96–100
[~2017-03-11 11:45] MED LIST changes: -CEFT2INJ IV; -EPIN1INJ21 IV PUSH; -EPIN1INJ21 SQ; -FURO1TAB60 PO; +LISI10TA3 PO; -SOLU250I IV PUSH; +TORS20TA PO
--- NOTE | 2017-03-11 12:20 | PD ---
HPI Chief Complaint: Cardiac Complaint Time Seen by Provider: 11:54 Travel History International Travel<30 days: No Contact w/Intl Traveler<30days: No Traveled to known affect area: No History of Present Illness HPI 76-year-old male that presents to the ED for evaluation of shortness of breath with exertion as well as palpitations. Patient has a significant history of atrial fibrillation as well as CHF have a ablation done by Dr. Myrick on the 11 of this coming month. The patient his been having more shortness of breath and feeling that his heart was palpitating and he could not wait anymore. He came here to get evaluated as he called Dr. Myrick's office and they told him to come here to get evaluated. He denies any other medical issues. He states that he's been feeling like his been gaining some fluid. He was admitted recently for CHF. He states that his medications have been switched multiple times to return he comes here to get admitted. He denies any chest pain. He denies any trauma or injury to the chest. He denies any recent travel. He takes Xeralto as a blood thinner. Patient has no abdominal pain. No bowel movement or urinary symptoms. Patient states having compliant with medications. No fevers chills or sweats. No other medical issues at this time. Again patient doesn't have any pain. Symptoms ongoing for the past couple days worsening today. Patient has a pacemaker with defibrillator. PFSH Past Medical History Hx Anticoagulant Therapy: Yes (xarelto) Arthritis: Yes Asthma: No Atrial Fibrillation: Yes Autoimmune Disease: No Blood Disorders: No Anxiety: No Depression: No Heart Rhythm Problems: Yes Cancer: No Cardiac Catheterization: Yes (STENT X 3 CAN'T REMEMBER DATE.) Cardiovascular Problems: Yes (afib, chf) High Cholesterol: Yes Chemotherapy: No Chest Pain: No Congestive Heart Failure: Yes COPD: No Cerebrovascular Accident: Yes Coronary Artery Disease: Yes Diabetes: Yes Diminished Hearing: Yes (WEARS RIGHT HEARING AID) Endocrine: Yes Gastrointestinal Disorders: Yes (GALLSTONES) GERD: Yes Glaucoma: No Genitourinary: No Headaches: No Hepatitis: No Hiatal Hernia: No Heparin Induced Thrombocytopen: No Hypertension: Yes Immune Disorder: No Implanted Vascular Access Dvce: Yes Kidney Stones: No Musculoskeletal: Yes Neurologic: No Psychiatric: No Reproductive: No Respiratory: Yes (CHF) Integumentary: No Immunizations Current: Yes Migraines: No Myocardial Infarction: Yes Radiation Therapy: No Renal Failure: No 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 ) Sickle Cell Disease: No Sleep Apnea: No Thyroid Disease: No Ulcer: Yes (GASTRIC) PNEUMOCCOCAL Vaccine (Year): 1 Past Surgical History Abdominal Surgery: Yes (cholecystectomy) AICD: Yes Appendectomy: No Arteriovenous Shunt: No Cardiac Surgery: Yes (STENTS PLACED) Cholecystectomy: Yes Coronary Stent: Yes (1994 /pacer placed 2 yr ago) Ear Surgery: No Endocrine Surgery: No Eye Surgery: Yes (right eye detached retina repair;right eye cataract removal) Genitourinary Surgery: Yes (penile implantation and removal) Gynecologic Surgery: No Insulin Pump: No Joint Replacement: No Neurologic Surgery: Yes (BRAIN SX FOR ABCESS. STENTS PLACED.) Oral Surgery: No Pacemaker: Yes Thoracic Surgery: Yes (AICD) Other Surgery: Yes (BRAIN ABSCESS 1987) Social History Alcohol Use: Yes ("A BEER ONCE OR TWICE A MONTH") Tobacco Use: No Substance Use: No Allergies-Medications (Allergen,Severity, Reaction): Coded Allergies: No Known Allergies (Verified Allergy, Unknown, 01/30/17) Reported Meds & Prescriptions Reported Meds & Active Scripts Active Torsemide 20 Mg Tab 20 Mg PO BID Lisinopril 10 Mg Tab 10 Mg PO DAILY Walker with Front Wheels (Device) 1 Mis Mis Ea .ROUTE DIRECTED Keppra (Levetiracetam) 500 Mg Tab 1,000 Mg PO BID Reported Cardizem CD 24 HR (Diltiazem CD 24 HR) 180 Mg Caper 180 Mg PO DAILY Omeprazole 20 Mg Tab 20 Mg PO DAILY Nitroglycerin SL (Nitroglycerin) 0.4 Mg Subl 0.4 Mg SL DIRECTED PRN ONE TABLET UNDER THE TONGUE NEEDED FOR CHEST PAIN, MAY REPEAT EVERY FIVE MINUTES FOR A TOTAL OF 3 DOSES OR CALL 911 IF NO RELIEF Klor-Con M20 (Potassium Chloride Microencaps) 20 Meq Tab 20 Meq PO Q12HR Glipizide 5 Mg Tab 5 Mg PO DAILY Take 30 minutes before a meal Humulin N Inj (Insulin Human NPH) 1,000 Unit/10 Ml Vial Units SQ DIRECTED Xarelto (Rivaroxaban) 20 Mg Tab 20 Mg PO HS Metoprolol Succinate ER 24 HR (Metoprolol Succinate) 200 Mg Tab 200 Mg PO DAILY Atorvastatin (Atorvastatin Calcium) 80 Mg Tab 80 Mg PO HS Review of Systems Except as stated in HPI: all other systems reviewed are Neg Physical Exam Narrative GENERAL: SKIN: Warm and dry. HEAD: Atraumatic. Normocephalic. EYES: Pupils equal and round. No scleral icterus. No injection or drainage. ENT: No nasal bleeding or discharge. Mucous membranes pink and moist. Tongue is midline. No uvula deviation. NECK: Trachea midline. No JVD. CARDIOVASCULAR: Irregular rate and rhythm. No murmurs, S3, S4. RESPIRATORY: No accessory muscle use. Clear to auscultation. Breath sounds equal bilaterally. GASTROINTESTINAL: Abdomen soft, non-tender, nondistended. Hepatic and splenic margins not palpable. MUSCULOSKELETAL: Extremities without clubbing, cyanosis, or edema. No obvious deformities. Full range of motion of the upper and lower extremities bilaterally. 1+ pitting edema in the lower legs bilaterally. NEUROLOGICAL: Awake and alert. No obvious cranial nerve deficits. Motor grossly within normal limits. Five out of 5 muscle strength in the arms and legs. Normal speech. PSYCHIATRIC: Appropriate mood and affect; insight and judgment normal. Data Data Last Documented VS Vital Signs Date Time Temp Pulse Resp B/P (MAP) Pulse Ox O2 Delivery O2 Flow Rate FiO2 03/11/17 13:02 113 18 90/55 (67) 97 03/11/17 12:25 Room Air 03/11/17 11:50 97.8 Orders Orders Electrocardiogram (03/11/17 11:54) Complete Blood Count With Diff (03/11/17 11:54) Basic Metabolic Panel (Bmp) (03/11/17 11:54) Ckmb (Isoenzyme) Profile (03/11/17 11:54) Troponin I (03/11/17 11:54) B-Type Natriuretic Peptide (03/11/17 11:54) Prothrombin Time / Inr (Pt) (03/11/17 11:54) Act Partial Throm Time (Ptt) (03/11/17 11:54) Magnesium (Mg) (03/11/17 11:54) Chest, Single Ap (03/11/17 11:54) Iv Access Insert/Monitor (03/11/17 11:54) Ecg Monitoring (03/11/17 11:54) Oximetry (03/11/17 11:54) Diltiazem Inj (Cardizem Inj) (03/11/17 12:30) Diltiazem Inj (Cardizem Inj) (03/11/17 12:30) CKMB (03/11/17 12:10) CKMB% (03/11/17 12:10) Admit Order (Ed Use Only) (03/11/17 13:26) Labs Laboratory Tests Test 03/11/17 12:10 White Blood Count 8.5 TH/MM3 Red Blood Count 4.28 MIL/MM3 Hemoglobin 13.6 GM/DL Hematocrit 40.6 % Mean Corpuscular Volume 94.7 FL Mean Corpuscular Hemoglobin 31.8 PG Mean Corpuscular Hemoglobin Concent 33.6 % Red Cell Distribution Width 15.1 % Platelet Count 178 TH/MM3 Mean Platelet Volume 8.2 FL Neutrophils (%) (Auto) 83.9 % Lymphocytes (%) (Auto) 9.4 % Monocytes (%) (Auto) 5.7 % Eosinophils (%) (Auto) 0.4 % Basophils (%) (Auto) 0.6 % Neutrophils # (Auto) 7.2 TH/MM3 Lymphocytes # (Auto) 0.8 TH/MM3 Monocytes # (Auto) 0.5 TH/MM3 Eosinophils # (Auto) 0.0 TH/MM3 Basophils # (Auto) 0.1 TH/MM3 CBC Comment DIFF FINAL Differential Comment Prothrombin Time 14.3 SEC Prothromb Time International Ratio 1.4 RATIO Activated Partial Thromboplast Time 32.9 SEC Blood Urea Nitrogen 24 MG/DL Creatinine 1.71 MG/DL Random Glucose 235 MG/DL Calcium Level 9.2 MG/DL Magnesium Level 2.3 MG/DL Sodium Level 138 MEQ/L Potassium Level 4.7 MEQ/L Chloride Level 102 MEQ/L Carbon Dioxide Level 27.7 MEQ/L Anion Gap 8 MEQ/L Estimat Glomerular Filtration Rate 39 ML/MIN Total Creatine Kinase 111 U/L Creatine Kinase MB 1.7 NG/ML Troponin I LESS THAN 0.02 NG/ML B-Type Natriuretic Peptide 323 PG/ML MDM Medical Decision Making Medical Screen Exam Complete: Yes Emergency Medical Condition: Yes Medical Record Reviewed: Yes Interpretation(s) CBC & BMP Diagram 03/11/17 12:10 Calcium Level 9.2, Magnesium Level 2.3 BNP in the 300s troponin and CKMB negative EKG shows atrial fibrillation with RVR with a ventricular rate of 115 on the EKG. No obvious sign of ST elevation noted by me and attending. Last Impressions Chest X-Ray 03/11/17 1154 Signed Impressions: Service Date/Time: Saturday, March 11, 2017 12:39 - CONCLUSION: Stable from 02/21/17. Complete cardiomegaly, bibasilar parenchymal changes. Anthony Roberts MD FACR Differential Diagnosis atrial fibrillation RVR versus CHF exacerbation versus fluid overload versus leg edema versus CAD versus palpitations versus dysrhythmia Narrative Course 76-year-old male that presents to the ED for evaluation of shortness of breath. Patient was properly examined and was found to have signs and symptoms very consistent with atrial fibrillation. Patient's heart rate was elevated in the 120s during my entire examination. Coming off and on from 100s to 120s. My attending Dr. Lowry evaluated the patient and agrees with plan. She recommends bolus of Cardizem with drip. Labs and imaging were ordered. Labs and imaging showed atrial fibrillation RVR. BNP and chest x-ray were reassuring. At this time I do recommend admission for further eval. My attending agrees with this. Case discussed with Dr. Nguyen by my attending Dr. Lowry who agreed to admission for atrial fibrillation RVR. Diagnosis Primary Impression: Atrial fibrillation with rapid ventricular response Admitting Information Admitting Physician Requests: Admit Kevin Ramirez Mar 11, 2017 12:20
[2017-03-11 12:22] LABS: AUTOMATED NEUTROPHIL # 7.2 TH/MM3 (1.8-7.7); BASOPHIL # 0.1 TH/MM3 (0-0.2); BASOPHIL % 0.6 % (0.0-2.0); EOSINOPHIL % 0.4 % (0.0-4.0); HEMATOCRIT 40.6 % (39.0-51.0); HEMOGLOBIN 13.6 GM/DL (13.0-17.0); LYMPH % 9.4 % (9.0-44.0); LYMPHOCYTE # 0.8 TH/MM3 (1.0-4.8); MEAN CELL VOLUME 94.7 FL (80.0-100.0); MEAN CORPUSCULAR HEMOGLOBIN 31.8 PG (27.0-34.0); MEAN CORPUSCULAR HGB CONC 33.6 % (32.0-36.0); MEAN PLATELET VOLUME 8.2 FL (7.0-11.0); MONO % 5.7 % (0.0-8.0); MONOCYTE # 0.5 TH/MM3 (0-0.9); NEUT % 83.9 % (16.0-70.0); PLATELET COUNT 178 TH/MM3 (150-450); RED BLOOD COUNT 4.28 MIL/MM3 (4.50-5.90); RED CELL DISTRIBUTION WIDTH 15.1 % (11.6-17.2); WHITE BLOOD COUNT 8.5 TH/MM3 (4.0-11.0)
[2017-03-11] MEDS ORDERED: DILTIAZEM HCL 25 MG/5 ML VIAL IV PUSH ONE (12:30)
[2017-03-11] MEDS ORDERED: DILTIAZEM INJ 125 MG in SODIUM CHLORIDE 0.9% INJ 100 ML IV PRN ×2 (12:30→19:30)
[2017-03-11 12:36] LABS: INTERNATIONAL NORMALIZED RATIO 1.4 RATIO; PROTHROMBIN TIME - PATIENT 14.3 SEC (9.8-11.6)
[2017-03-11 12:41] LABS: BICARBONATE 27.7 MEQ/L (21.0-32.0); BLOOD UREA NITROGEN 24 MG/DL (7-18); CALCIUM 9.2 MG/DL (8.5-10.1); CHLORIDE 102 MEQ/L (98-107); CREATININE 1.71 MG/DL (0.60-1.30); GLOMERULAR FILTRATION RATE 39 ML/MIN (>89); GLUCOSE,RANDOM 235 MG/DL (74-106); MAGNESIUM 2.3 MG/DL (1.5-2.5); SODIUM (NA) 138 MEQ/L (136-145)
[2017-03-11 12:52] LABS: TROPONIN I LESS THAN 0.02 NG/ML (0.02-0.05)
--- NOTE | 2017-03-11 13:01 | RADRPT ---
EXAM DATE/TIME: 03/11/2017 12:39 [facility] COMPARISON: CHEST SINGLE AP, February 21, 2017, 2:28. INDICATIONS : Chest pain, fast heart rate, and shortness of breath. MEDICAL HISTORY : None. SURGICAL HISTORY : Pacemaker. Defibrillator. Stents. ENCOUNTER: Initial ACUITY: 1 day PAIN SCORE: 5/10 LOCATION: Bilateral chest FINDINGS: Pacemaker left chest. Complete cardiomegaly without overt failure. Minimal bibasilar peripheral carmen nges. The portion of the bony skeleton visualized is unremarkable. CONCLUSION: Stable from 02/21/17. Complete cardiomegaly, bibasilar parenchymal changes. Anthony Roberts MD FACR on March 11, 2017 at 12:58 Board Certified Radiologist. This report was verified electronically.
--- NOTE | 2017-03-11 13:31 | PD ---
Physical Exam Date Seen by Provider: Mar 11, 2017 Time Seen by Provider: 13:00 Narrative I'm seeing this patient with Corona Ramirez PA-C. The patient comes in here with shortness of breath on exertion. The patient has history of A. fib and has been in rapid ventricular response. He is scheduled to have an ablation on the of next month. He denies any chest pressure or chest pain. He does report cough with minimal production. Data Data Last Documented VS Vital Signs Date Time Temp Pulse Resp B/P (MAP) Pulse Ox O2 Delivery O2 Flow Rate FiO2 03/11/17 13:02 113 18 90/55 (67) 97 03/11/17 12:25 Room Air 03/11/17 11:50 97.8 Orders Orders Electrocardiogram (03/11/17 11:54) Complete Blood Count With Diff (03/11/17 11:54) Basic Metabolic Panel (Bmp) (03/11/17 11:54) Ckmb (Isoenzyme) Profile (03/11/17 11:54) Troponin I (03/11/17 11:54) B-Type Natriuretic Peptide (03/11/17 11:54) Prothrombin Time / Inr (Pt) (03/11/17 11:54) Act Partial Throm Time (Ptt) (03/11/17 11:54) Magnesium (Mg) (03/11/17 11:54) Chest, Single Ap (03/11/17 11:54) Iv Access Insert/Monitor (03/11/17 11:54) Ecg Monitoring (03/11/17 11:54) Oximetry (03/11/17 11:54) Diltiazem Inj (Cardizem Inj) (03/11/17 12:30) Diltiazem Inj (Cardizem Inj) (03/11/17 12:30) CKMB (03/11/17 12:10) CKMB% (03/11/17 12:10) Labs Laboratory Tests Test 03/11/17 12:10 White Blood Count 8.5 TH/MM3 Red Blood Count 4.28 MIL/MM3 Hemoglobin 13.6 GM/DL Hematocrit 40.6 % Mean Corpuscular Volume 94.7 FL Mean Corpuscular Hemoglobin 31.8 PG Mean Corpuscular Hemoglobin Concent 33.6 % Red Cell Distribution Width 15.1 % Platelet Count 178 TH/MM3 Mean Platelet Volume 8.2 FL Neutrophils (%) (Auto) 83.9 % Lymphocytes (%) (Auto) 9.4 % Monocytes (%) (Auto) 5.7 % Eosinophils (%) (Auto) 0.4 % Basophils (%) (Auto) 0.6 % Neutrophils # (Auto) 7.2 TH/MM3 Lymphocytes # (Auto) 0.8 TH/MM3 Monocytes # (Auto) 0.5 TH/MM3 Eosinophils # (Auto) 0.0 TH/MM3 Basophils # (Auto) 0.1 TH/MM3 CBC Comment DIFF FINAL Differential Comment Prothrombin Time 14.3 SEC Prothromb Time International Ratio 1.4 RATIO Activated Partial Thromboplast Time 32.9 SEC Blood Urea Nitrogen 24 MG/DL Creatinine 1.71 MG/DL Random Glucose 235 MG/DL Calcium Level 9.2 MG/DL Magnesium Level 2.3 MG/DL Sodium Level 138 MEQ/L Potassium Level 4.7 MEQ/L Chloride Level 102 MEQ/L Carbon Dioxide Level 27.7 MEQ/L Anion Gap 8 MEQ/L Estimat Glomerular Filtration Rate 39 ML/MIN Total Creatine Kinase 111 U/L Creatine Kinase MB 1.7 NG/ML Troponin I LESS THAN 0.02 NG/ML B-Type Natriuretic Peptide 323 PG/ML MDM Medical Record Reviewed: Yes Supervised Visit with KATERYNA: Yes Narrative Course Year-old male history of A. fib, presents here with A. fib with RVR. The patient was given a diltiazem bolus and placed on a diltiazem drip. He is not having chest pain at this time. He does have a history of having congestive heart failure. Cardiac enzymes are within normal limits. He will be admitted to the hospital. The case was discussed with Dr. Joo Frances, [facility] who agrees for the admission. The patient does have elevated blood sugar is consistent with his diabetes history. He also has renal insufficiency. He is currently on Xarelto which will likely need to be held if he needs a ablation. This was also discussed with Dr. Frances. Diagnosis Primary Impression: Atrial fibrillation with rapid ventricular response Additional Impressions: exertional dyspnea DM2 (diabetes mellitus, type 2) chronic kidney injury Admitting Information Admitting Physician Requests: Admit Miguel Ángel Lowry MD Mar 11, 2017 13:31
[2017-03-11] MEDS ORDERED: SODIUM CHLORIDE 0.9% FLUSH 10 ML FLUSH IV FLUSH PRN (14:15)
[2017-03-11] MEDS ORDERED: GLUCAGON 1 MG/ML VIAL OTHER PRN (14:15)
[2017-03-11] MEDS ORDERED: ACETAMINOPHEN 325 MG TAB PO PRN ×2 (14:15)
[2017-03-11] MEDS ORDERED: MAGNESIUM HYDROXIDE SUSP 30 ML CUP PO PRN (14:15)
[2017-03-11] MEDS ORDERED: RESP: ALBUTEROL 2.5 MG/IPRATROPIUM 0.5 MG NEB (PRN) NEB (14:15)
[2017-03-11] MEDS ORDERED: ONDANSETRON HCL 4 MG/2 ML VIAL IVP PRN (14:15)
[2017-03-11] MEDS ORDERED: ACETAMINOPHEN/HYDROcodone 325 MG/5 MG TAB PO PRN (14:15)
[2017-03-11] MEDS ORDERED: NALOXONE HCL 0.4 MG/ML AMP IV PUSH PRN (14:15)
[2017-03-11] MEDS ORDERED: DEXTROSE 50% IN WATER 50 ML VIAL(D50) IV PUSH PRN (14:15)
--- NOTE | 2017-03-11 14:23 | HHI.HP ---
[facility] Teja Beach Do, MD Admission Diagnosis atrial fibrillation in RVR Diagnoses: (1) Atrial fibrillation with rapid ventricular response (2) CAD (coronary artery disease) (3) Hyperlipidemia (4) Diabetes mellitus type 2, uncontrolled (5) Chronic systolic congestive heart failure (6) GERD (gastroesophageal reflux disease) Chief Complaint: Shortness of breath Travel History International Travel<30 Days: No Contact w/Intl Traveler <30 Da: No Traveled to Known Affected Are: No History of Present Illness 76 year old male with a history of ischemic cardiomyopathy, Afib, CHF presenting to the ED with worsening shortness of breath over the past several weeks to month associated with heart palpitation however without any chest pain. Patient endorses bilateral lower extremity edema. Patient is status post cardiac ablation 02/24/17. 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 Vitals on admission T 97.9,HR 112, RR 16, BP 113/59 and 100%RA. CXR stable from 02/21/17 with cardiomegaly. BNP 323. He denies any GI bleed Review of Systems Except as stated in HPI: all other systems reviewed are Neg Past Family Social History Past Medical History Hypertension Congestive heart failure Coronary artery disease Paroxysmal atrial fibrillation Seizure disorder cad- s/p stent 20yrs ago Past Surgical History abscess in brain- s/p surgical removal in 1987 or 1988 stents for coronary cholecystectomy Reported Medications Torsemide 20 Mg Tab 20 Mg PO BID Lisinopril 10 Mg Tab 10 Mg PO DAILY Walker with Front Wheels (Device) 1 Mis Mis Ea .ROUTE DIRECTED Keppra (Levetiracetam) 500 Mg Tab 1,000 Mg PO BID Reported Cardizem CD 24 HR (Diltiazem CD 24 HR) 180 Mg Caper 180 Mg PO DAILY Omeprazole 20 Mg Tab 20 Mg PO DAILY Nitroglycerin SL (Nitroglycerin) 0.4 Mg Subl 0.4 Mg SL DIRECTED PRN ONE TABLET UNDER THE TONGUE NEEDED FOR CHEST PAIN, MAY REPEAT EVERY FIVE MINUTES FOR A TOTAL OF 3 DOSES OR CALL 911 IF NO RELIEF Sandrine M20 (Potassium Chloride Microencaps) 20 Meq Tab 20 Meq PO Q12HR Glipizide 5 Mg Tab 5 Mg PO DAILY Take 30 minutes before a meal Humulin N Inj (Insulin Human NPH) 1,000 Unit/10 Ml Vial Units SQ DIRECTED Xarelto (Rivaroxaban) 20 Mg Tab 20 Mg PO HS Metoprolol Succinate ER 24 HR (Metoprolol Succinate) 200 Mg Tab 200 Mg PO DAILY Atorvastatin (Atorvastatin Calcium) 80 Mg Tab 80 Mg PO HS Allergies: Coded Allergies: No Known Allergies (Verified Allergy, Unknown, 01/30/17) Family History Family history positive for heart disease, CAD Social History used to smoke, quit 20yrs ago social drinker no drugs lives by myself, still driving and rides motorcycles Physical Exam Vital Signs Vital Signs Date Time Temp Pulse Resp B/P (MAP) Pulse Ox O2 Delivery O2 Flow Rate FiO2 03/11/17 14:06 112 112/67 03/11/17 14:05 112 18 112/67 (82) 100 03/11/17 13:02 113 18 90/55 (67) 97 03/11/17 12:58 118 143/81 03/11/17 12:25 96 03/11/17 12:25 96 Room Air 03/11/17 11:50 97.8 112 16 113/59 (77) 100 Physical Exam GENERAL: This is a well-nourished, well-developed patient, in no apparent distress. SKIN: No rashes, ecchymoses or lesions. Cool and dry. HEAD: Atraumatic. Normocephalic. No temporal or scalp tenderness. EYES: Pupils equal round and reactive. Extraocular motions intact. No scleral icterus. No injection or drainage. ENT: Nose without bleeding, purulent drainage or septal hematoma. Throat without erythema, tonsillar hypertrophy or exudate. Uvula midline. Airway patent. NECK: Trachea midline. No JVD or lymphadenopathy. Supple, nontender, no meningeal signs. CARDIOVASCULAR: Regular rate and rhythm without murmurs, gallops, or rubs. RESPIRATORY: Clear to auscultation. Breath sounds equal bilaterally. No wheezes , rales, or rhonchi. GASTROINTESTINAL: Abdomen soft, non-tender, nondistended. No hepato-splenomegaly , or palpable masses. No guarding. MUSCULOSKELETAL: Extremities without clubbing, cyanosis, or edema. No joint tenderness, effusion, or edema noted. No calf tenderness. Negative Homans sign bilaterally. NEUROLOGICAL: Awake and alert. Cranial nerves II through XII intact. Motor and sensory grossly within normal limits. Five out of 5 muscle strength in all muscle groups. Normal speech. Laboratory Laboratory Tests Test 03/11/17 12:10 White Blood Count 8.5 Red Blood Count 4.28 Hemoglobin 13.6 Hematocrit 40.6 Mean Corpuscular Volume 94.7 Mean Corpuscular Hemoglobin 31.8 Mean Corpuscular Hemoglobin Concent 33.6 Red Cell Distribution Width 15.1 Platelet Count 178 Mean Platelet Volume 8.2 Neutrophils (%) (Auto) 83.9 Lymphocytes (%) (Auto) 9.4 Monocytes (%) (Auto) 5.7 Eosinophils (%) (Auto) 0.4 Basophils (%) (Auto) 0.6 Neutrophils # (Auto) 7.2 Lymphocytes # (Auto) 0.8 Monocytes # (Auto) 0.5 Eosinophils # (Auto) 0.0 Basophils # (Auto) 0.1 CBC Comment DIFF FINAL Differential Comment Prothrombin Time 14.3 Prothromb Time International Ratio 1.4 Activated Partial Thromboplast Time 32.9 Blood Urea Nitrogen 24 Creatinine 1.71 Random Glucose 235 Calcium Level 9.2 Magnesium Level 2.3 Sodium Level 138 Potassium Level 4.7 Chloride Level 102 Carbon Dioxide Level 27.7 Anion Gap 8 Estimat Glomerular Filtration Rate 39 Total Creatine Kinase 111 Creatine Kinase MB 1.7 Troponin I LESS THAN 0.02 B-Type Natriuretic Peptide 323 Result Diagram: 03/11/17 1210 03/11/17 1210 Caprini VTE Risk Assessment Caprini VTE Risk Assessment: Mod/High Risk (score >= 2) Caprini Risk Assessment Model Point Value = 1 Point Value = 2 Point Value = 3 Point Value = 5 Age 41-60 Minor surgery BMI > 25 kg/m2 Swollen legs Varicose veins or History of unexplained or recurrent spontaneous Oral contraceptives or hormone replacement Sepsis (< 1 month) Serious lung disease, including pneumonia (< 1 month) Abnormal pulmonary function Acute myocardial infarction Congestive heart failure (< 1 month) History of inflammatory bowel disease Medical patient at bed rest Age 61-74 Arthroscopic surgery Major open surgery (> 45 min) Laparoscopic surgery (> 45 min) Malignancy Confined to bed (> 72 hours) Immobilizing plaster cast Central venous access Age >= 75 History of VTE Family history of VTE Factor V Leiden Prothrombin [id number] Lupus anticoagulant Anticardiolipin antibodies Elevated serum homocysteine Heparin-induced thrombocytopenia Other congenital or acquired thrombophilia Stroke (< 1 month) Elective arthroplasty Hip, pelvis, or leg fracture Acute spinal cord injury (< 1 month) Prophylaxis Regimen Total Risk Factor Score Risk Level Prophylaxis Regimen 0-1 Low Early ambulation 2 Moderate Order ONE of the following: *Sequential Compression Device (SCD) *Heparin 5000 units SQ BID 3-4 Higher Order ONE of the following medications: *Heparin 5000 units SQ TID *Enoxaparin/Lovenox 40 mg SQ daily (WT < 150 kg, CrCl > 30 mL/min) *Enoxaparin/Lovenox 30 mg SQ daily (WT < 150 kg, CrCl > 10-29 mL/min) *Enoxaparin/Lovenox 30 mg SQ BID (WT < 150 kg, CrCl > 30 mL/min) AND/OR *Sequential Compression Device (SCD) 5 or more Highest Order ONE of the following medications: *Heparin 5000 units SQ TID (Preferred with Epidurals) *Enoxaparin/Lovenox 40 mg SQ daily (WT < 150 kg, CrCl > 30 mL/min) *Enoxaparin/Lovenox 30 mg SQ daily (WT < 150 kg, CrCl > 10-29 mL/min) *Enoxaparin/Lovenox 30 mg SQ BID (WT < 150 kg, CrCl > 30 mL/min) AND *Sequential Compression Device (SCD) Assessment and Plan Problem List: (1) Atrial fibrillation with rapid ventricular response ICD Code: I48.91 - Atrial fibrillation with rapid ventricular response Status: Chronic (2) Chronic systolic congestive heart failure ICD Code: I50.22 - Chronic systolic congestive heart failure Status: Chronic Assessment and Plan 76-year-old man with Paroxysmal A. fib Atrial fibrillation rapid ventricular response Patients with recent cardiac ablation 02/24/17 Consult cardiology Start Cardizem drip, resume beta austin ACS ruled out per protocol with serial cardiac enzyme and EKG Hold Xarelto until patient seen by cardiology History of chronic systolic CHF Chest x-ray noted and reviewed by me and stable from previous exam 02/21/17 BNP moderately elevated Resume outpatient medications included torsemide 20 mg twice a day Diabetes type 2 Labile blood glucose Start Levemir 10 units at bedtime, insulin sliding scale History of seizure disorder Resume Keppra Hyperlipidemia Resume statin DVT prophylaxis: Bilateral SCDs Code Status Full code Discussed Condition With Patient, ED physician Physician Certification 2 Midnight Certification Type: Admission for Inpatient Services Order for Inpatient Services The services are ordered in accordance with Medicare regulations or non- Medicare payer requirements, as applicable. In the case of services not specified as inpatient-only, they are appropriately provided as inpatient services in accordance with the 2-midnight benchmark. Estimated LOS (days): 2 days is the estimated time the patient will need to remain in the hospital, assuming treatment plan goals are met and no additional complications. Post-Hospital Plan: Not yet determined Joo Frances MD Mar 11, 2017 14:23
[2017-03-11] MEDS: RIVAROXABAN 20 MG TAB PO SCH (18:05)
--- NOTE | 2017-03-11 18:41 | MB ---
cc: SID FROST DO DATE OF CONSULTATION: 03/11/2017 REASON FOR CONSULTATION: Atrial fibrillation with rapid ventricular response. HISTORY OF PRESENT ILLNESS Triston Bolton is a pleasant 76-year-old male who sees my partner, Dr. Myrick, in the office and presented to [facility] on March 11, 2017, for worsening shortness of breath. He states that he previously saw Dr. Myrick for atrial fibrillation with rapid regular response and was planned to have an ablation in March. He has noticed over the past several weeks that he has been having increasing amounts of rapid ventricular response and has been getting significantly short of breath. He is unable to walk from the bedroom out to the living room without getting short of breath. He denies chest pain. He called Dr. Myrick's office and noted that he was having more episodes of rapid ventricular response and so he was recommended coming to the emergency room. In seeing him, he is currently hemodynamically stable with no chest pain or shortness of breath, currently on a Cardizem drip at 10 mg per hour. PAST MEDICAL HISTORY 1. Hypertension. 2. Congestive heart failure. 3. Coronary artery disease. 4. Paroxysmal atrial fibrillation. 5. Insulin-dependent diabetes mellitus. 6. Recent ventricular fibrillation with multiple firings felt to be due to sepsis. 7. Seizure disorder. PAST SURGICAL HISTORY 1. Cardiac catheterization (January 24, 2017) left main 20%. LAD proximal portion with stent patent, mild luminal irregularities throughout the midportion. High diagonal versus ramus with multiple stents and 20% In-stent restenosis. The left circumflex mild luminal irregularities. First obtuse marginal subtotally occluded in the ostium and fills via antegrade flow as well as collaterals from the left coronary system and is overall a small vessel at 1 to 1.5 mm. RCA 30% lesion. 1. Brain abscess removed remotely. 2. Status post multiple stents placed around 20 years ago. 3. Cholecystectomy. 4. Multiple ablations for atrial fibrillation as well as multiple electrical cardioversions. ALLERGIES NO KNOWN DRUG ALLERGIES. MEDICATIONS 1. Xarelto 20 mg every night. 2. Lipitor 80 mg every night. 3. Nitro sublingual as needed for chest pain. 4. Toprol XL 200 mg daily. 5. Cardizem CD 180 mg daily. 6. Lisinopril 10 mg daily. 7. Keppra 1000 mg b.i.d. 8. Potassium 20 mEq every 12 hours. 9. Furosemide 20 mg b.i.d. 10. Omeprazole 20 mg daily. 11. Humulin sliding scale. 12. Glipizide 5 mg daily. FAMILY HISTORY Denies premature coronary artery disease or sudden cardiac within the family. SOCIAL HISTORY The patient previously smoked but quit 20 years ago. He drinks socially. Denies drugs. REVIEW OF SYSTEMS 14-systems were reviewed including osteopathic pertinent positives and negatives above otherwise negative. PHYSICAL EXAMINATION Vital signs: Temperature 97.8, heart rate 112, blood pressure 112/67, respirations 18, pulse ox 100% on room air. In general the patient appears well in no acute distress, alert awake and oriented x3. HEENT: Extraocular muscles intact. Mucous membranes moist. Neck: Supple. No JVD at 45 degrees. No carotid bruits heard bilaterally. Carotid upstroke is brisk in nature. Heart: Heart is regular rate and rhythm. Positive first and second heart sounds with a 1/6 holosystolic murmur noted at the apex. Lungs: Clear to auscultation bilaterally. No wheezes, rales or rhonchi. Abdomen: Abdomen is soft, nontender, nondistended, no organomegaly noted. Extremities: Show trace edema bilaterally. Femoral and distal pulses intact bilaterally. Neurologically: No focal deficits. Skin: Warm, dry and intact. Osteopathic: With no kyphoscoliosis, lordosis or paraspinal tender points. LABORATORY FINDINGS Hemoglobin 13.6, hematocrit 40.6, platelets 178. INR 1.4. Potassium 4.7, BUN 24, creatinine 1.71. BNP 323. Electrocardiogram (March 11, 2017 at 12:18). A.flutter with rapid ventricular response, right bundle branch block, left anterior fascicular block, nonspecific ST-T wave changes. IMPRESSION 1. A-fib/A.flutter with rapid ventricular response with a history of multiple atrial fibrillation ablations. 2. History of chronic systolic heart failure for which the patient is mildly decompensated getting short of breath with exertion, possibly due to atrial fibrillation with rapid ventricular response. 3. Coronary artery disease as above. 4. Diabetes mellitus. 5. History of seizure disorder. 6. Hyperlipidemia. RECOMMENDATIONS 1. Mr. Bolton appears to have atrial fibrillation which has been difficult to control in the outpatient setting. 2. He has been started on a Cardizem drip and will continue on his beta austin therapy. 3. We will plan on continuing him on Xaralto. 4. I will have Dr. Myrick see him for consideration of possible ablation. He will be left n.p.o. after midnight until evaluated in the morning by Dr. Myrick for further considerations. 5. Further recommendations will be made based on the hospital course. Thank you for allowing me to see Triston Bolton. If there are any questions, please to not hesitate to call. Sid Frost DO VGP/GONZALO /5:20 PM /5:49 PM
[2017-03-11] MEDS: SODIUM CHLORIDE 0.9% FLUSH 10 ML FLUSH IV FLUSH SCH (20:50)
[2017-03-11] MEDS: ATORVASTATIN 80 MG TAB PO SCH (20:50)
[2017-03-11] MEDS: POTASSIUM CHLORIDE 20 MEQ CONTROLLED RELEASE TAB PO SCH (20:50)
[2017-03-11] MEDS: INSULIN DETEMIR 100 UNITS/ML VIAL SQ SCH (20:51)
[2017-03-11 21:13] LABS: TROPONIN I LESS THAN 0.02 NG/ML (0.02-0.05)
[2017-03-11] MEDS: levETIRAcetam 500 MG TAB PO SCH (21:34)
[2017-03-11] MEDS: TORSEMIDE 20 MG TAB PO SCH (21:35)
[2017-03-11] MEDS: INSULIN ASPART SUPPLEMENTAL SCALE SQ SCH (21:53)
[2017-03-12] VITALS (23 sets, daily range): BP systolic 97–115; BP diastolic 66–77; PULSE 110–115; RESP 18; TEMP 97.6–98; O2SAT 96–97
[2017-03-12 02:25] LABS: AUTOMATED NEUTROPHIL # 5.1 TH/MM3 (1.8-7.7); BASOPHIL % 0.3 % (0.0-2.0); EOSINOPHIL # 0.1 TH/MM3 (0-0.4); EOSINOPHIL % 0.7 % (0.0-4.0); HEMATOCRIT 38.9 % (39.0-51.0); LYMPH % 18.1 % (9.0-44.0); LYMPHOCYTE # 1.3 TH/MM3 (1.0-4.8); MEAN CELL VOLUME 93.6 FL (80.0-100.0); MEAN CORPUSCULAR HEMOGLOBIN 31.3 PG (27.0-34.0); MEAN CORPUSCULAR HGB CONC 33.4 % (32.0-36.0); MEAN PLATELET VOLUME 7.9 FL (7.0-11.0); MONOCYTE # 0.6 TH/MM3 (0-0.9); NEUT % 71.9 % (16.0-70.0); PLATELET COUNT 147 TH/MM3 (150-450); RED BLOOD COUNT 4.16 MIL/MM3 (4.50-5.90); RED CELL DISTRIBUTION WIDTH 15.1 % (11.6-17.2); WHITE BLOOD COUNT 7.2 TH/MM3 (4.0-11.0)
[2017-03-12 02:58] LABS: ALBUMIN 3.4 GM/DL (3.4-5.0); ALT (GPT) 24 U/L (12-78); AST (GOT) 19 U/L (15-37); BICARBONATE 28.6 MEQ/L (21.0-32.0); BLOOD UREA NITROGEN 26 MG/DL (7-18); CALCIUM 8.8 MG/DL (8.5-10.1); CHLORIDE 103 MEQ/L (98-107); CREATININE 1.61 MG/DL (0.60-1.30); GLOMERULAR FILTRATION RATE 42 ML/MIN (>89); GLUCOSE,RANDOM 120 MG/DL (74-106); SODIUM (NA) 139 MEQ/L (136-145)
[2017-03-12 03:02] LABS: ALKALINE PHOSPHATASE 102 U/L (45-117); TOTAL BILIRUBIN ADULT 0.6 MG/DL (0.2-1.0); TROPONIN I LESS THAN 0.02 NG/ML (0.02-0.05)
[2017-03-12] MEDS: INSULIN ASPART SUPPLEMENTAL SCALE SQ SCH ×4 (07:29→20:33)
[2017-03-12] MEDS: LISINOPRIL 10 MG TAB PO SCH (08:06)
[2017-03-12] MEDS: DILTIAZEM-CD 180 MG CAP ER PO SCH (08:06)
[2017-03-12] MEDS: POTASSIUM CHLORIDE 20 MEQ CONTROLLED RELEASE TAB PO SCH ×2 (08:06→20:24)
[2017-03-12] MEDS: PANTOPRAZOLE SOD 20 MG DELAYED RELEASE TAB PO SCH (08:06)
[2017-03-12] MEDS: TORSEMIDE 20 MG TAB PO SCH ×2 (08:06→20:24)
[2017-03-12] MEDS: METOPROLOL SUCCINATE 50 MG EXTENDED RELEASE TAB PO SCH (08:07)
[2017-03-12] MEDS: levETIRAcetam 500 MG TAB PO SCH ×2 (08:07→20:24)
[2017-03-12] MEDS: SODIUM CHLORIDE 0.9% FLUSH 10 ML FLUSH IV FLUSH SCH ×2 (08:09→20:24)
--- NOTE | 2017-03-12 11:06 | HHI.PR ---
Subjective Remarks Follow-up A. fib with RVR 03/12/17-patient seen and examined, still on Cardizem drip and rate not controlled. Patient currently denies any chest pain. Case discussed with chief pilot Dr. Elen lima and plan for possible cardiac ablation within the next 48 hours Objective Vitals Vital Signs Date Time Temp Pulse Resp B/P (MAP) Pulse Ox O2 Delivery O2 Flow Rate FiO2 03/12/17 10:21 111 03/12/17 09:13 112 03/12/17 08:36 97.7 111 18 115/77 (90) 96 03/12/17 08:36 114 03/12/17 06:02 110 03/12/17 05:00 110 03/12/17 04:00 111 03/12/17 03:00 110 03/12/17 03:00 97.6 111 18 114/74 (87) 96 03/12/17 02:00 110 03/12/17 01:00 112 03/12/17 00:00 112 03/11/17 23:00 97.8 113 18 117/84 (95) 96 03/11/17 23:00 80 03/11/17 22:00 60 03/11/17 21:00 60 03/11/17 20:00 60 03/11/17 19:00 60 03/11/17 19:00 97.6 60 20 110/60 (77) 97 03/11/17 16:45 97.6 117 20 126/77 (93) 99 03/11/17 14:06 112 112/67 03/11/17 14:05 112 18 112/67 (82) 100 03/11/17 13:02 113 18 90/55 (67) 97 03/11/17 12:58 118 143/81 03/11/17 12:25 96 03/11/17 12:25 96 Room Air 03/11/17 11:50 97.8 112 16 113/59 (77) 100 I/O 03/11/17 03/11/17 03/11/17 03/12/17 03/12/17 03/12/17 07:00 15:00 23:00 07:00 15:00 23:00 Intake Total 360 ml Output Total 475 ml Balance -115 ml Intake Oral 360 ml Output Urine Total 475 ml Result Diagram: 03/12/17 0150 03/12/17 0150 Imaging Last Impressions Chest X-Ray 03/11/17 1154 Signed Impressions: Service Date/Time: Saturday, March 11, 2017 12:39 - CONCLUSION: Stable from 02/21/17. Complete cardiomegaly, bibasilar parenchymal changes. Anthony Roberts MD FACR Objective Remarks GENERAL: NAD SKIN: Warm and dry. HEAD: Normocephalic. EYES: No scleral icterus. No injection or drainage. NECK: Supple, trachea midline. No JVD or lymphadenopathy. CARDIOVASCULAR: Irregular Regular rate and rhythm without murmurs, gallops, or rubs. RESPIRATORY: Breath sounds equal bilaterally. No accessory muscle use. GASTROINTESTINAL: Abdomen soft, non-tender, nondistended. MUSCULOSKELETAL: No cyanosis, or edema. BACK: Nontender without obvious deformity. No CVA tenderness. A/P Problem List: (1) Atrial fibrillation with rapid ventricular response ICD Code: I48.91 - Atrial fibrillation with rapid ventricular response Status: Chronic (2) Chronic systolic congestive heart failure ICD Code: I50.22 - Chronic systolic congestive heart failure Status: Chronic Assessment and Plan Paroxysmal A. fib Atrial fibrillation rapid ventricular response Patients with recent cardiac ablation 02/24/17 Appreciate input from cardiology pending for possible cardiac ablation within the next 48 hours Continue Cardizem drip, beta austin, Xarelto ACS ruled out per protocol with serial cardiac enzyme and EKG History of chronic systolic CHF Chest x-ray noted and reviewed by me and stable from previous exam 02/21/17 BNP moderately elevated Continue outpatient medications including torsemide 20 mg twice a day Diabetes type 2 Continue Levemir 10 units at bedtime, insulin sliding scale History of seizure disorder Currently on Keppra Hyperlipidemia on statin DVT prophylaxis: Bilateral SCDs Joo Frances MD Mar 12, 2017 11:06
--- NOTE | 2017-03-12 14:13 | PD.CARD.PN ---
Subjective Subjective Remarks No events overnight Patient up to the chair, no chest pain/SOB Heart rates around 100-110 off of Cardizem drip Objective Medications Current Medications Medications (Trade) Dose Ordered Sig/Jaz Route Start Time Stop Time Status Last Admin (Lipitor) 80 mg HS PO 03/11/17 21:00 03/11/17 20:50 (Cardizem Cd) 180 mg DAILY PO 03/12/17 09:00 03/12/17 08:06 (Keppra) 1,000 mg BID PO 03/11/17 21:00 03/12/17 08:07 (Prinivil) 10 mg DAILY PO 03/12/17 09:00 03/12/17 08:06 (KCl) 20 meq Q12HR PO 03/11/17 21:00 03/12/17 08:06 (Demadex) 20 mg BID PO 03/11/17 21:00 03/12/17 08:06 (Toprol Xl) 200 mg DAILY PO 03/12/17 09:00 03/12/17 08:07 (Protonix) 20 mg DAILY PO 03/12/17 09:00 03/12/17 08:06 (NS Flush) 2 ml UNSCH PRN IV FLUSH 03/11/17 14:15 (NS Flush) 2 ml BID IV FLUSH 03/11/17 21:00 03/12/17 08:09 (Tylenol) 650 mg Q4H PRN PO 03/11/17 14:15 (Zofran Inj) 4 mg Q6H PRN IVP 03/11/17 14:15 (Tylenol) 650 mg Q6H PRN PO 03/11/17 14:15 ([place] 5-325 Mg) 1 tab Q4H PRN PO 03/11/17 14:15 (Narcan Inj) 0.4 mg UNSCH PRN IV PUSH 03/11/17 14:15 (Milk Of Magnesia Liq) 30 ml Q12H PRN PO 03/11/17 14:15 (Duoneb Neb) 1 ampule Q2HR NEB PRN NEB 03/11/17 14:15 (D50w (Vial) Inj) 50 ml UNSCH PRN IV PUSH 03/11/17 14:15 (Glucagon Inj) 1 mg UNSCH PRN OTHER 03/11/17 14:15 (NovoLOG SUPPLEMENTAL SCALE) 1 ACHS SLIDING SCALE SQ 03/11/17 17:00 03/12/17 12:50 (Levemir Inj) 10 units HS SQ 03/11/17 21:00 03/11/17 20:51 (Xarelto) 20 mg WITH DINNER PO 03/11/17 18:00 03/11/17 18:05 Diltiazem HCl 125 mg/Sodium Chloride 125 ml @ 5 mls/hr TITRATE PRN IV 03/11/17 19:30 Vital Signs / I&O Vital Signs Date Time Temp Pulse Resp B/P (MAP) Pulse Ox O2 Delivery O2 Flow Rate FiO2 03/12/17 14:03 115 03/12/17 13:17 114 03/12/17 12:03 113 03/12/17 11:18 113 03/12/17 11:18 97.6 112 18 100/66 (77) 96 03/12/17 10:21 111 03/12/17 09:13 112 03/12/17 08:36 97.7 111 18 115/77 (90) 96 03/12/17 08:36 114 03/12/17 06:02 110 03/12/17 05:00 110 03/12/17 04:00 111 03/12/17 03:00 110 03/12/17 03:00 97.6 111 18 114/74 (87) 96 03/12/17 02:00 110 03/12/17 01:00 112 03/12/17 00:00 112 03/11/17 23:00 97.8 113 18 117/84 (95) 96 03/11/17 23:00 80 03/11/17 22:00 60 03/11/17 21:00 60 03/11/17 20:00 60 03/11/17 19:00 60 03/11/17 19:00 97.6 60 20 110/60 (77) 97 03/11/17 16:45 97.6 117 20 126/77 (93) 99 I/O 03/11/17 03/11/17 03/11/17 03/12/17 03/12/17 03/12/17 07:00 15:00 23:00 07:00 15:00 23:00 Intake Total 360 ml Output Total 475 ml Balance -115 ml Intake Oral 360 ml Output Urine Total 475 ml Physical Exam GENERAL: NAD, AAOx3 SKIN: Warm and dry. HEAD: Atraumatic. Normocephalic. EYES: Pupils equal and round. No scleral icterus. No injection or drainage. ENT: No nasal bleeding or discharge. Mucous membranes pink and moist. NECK: Trachea midline. No JVD. CARDIOVASCULAR: Irregularly irregular RESPIRATORY: No accessory muscle use. Clear to auscultation. Breath sounds equal bilaterally. GASTROINTESTINAL: Abdomen soft, non-tender, nondistended. Hepatic and splenic margins not palpable. MUSCULOSKELETAL: Extremities without clubbing, cyanosis. Trace edema. No obvious deformities. NEUROLOGICAL: Awake and alert. No obvious cranial nerve deficits. Motor grossly within normal limits. Five out of 5 muscle strength in the arms and legs. Normal speech. PSYCHIATRIC: Appropriate mood and affect; insight and judgment normal. Laboratory Laboratory Tests Test 03/11/17 19:28 03/12/17 01:50 Total Creatine Kinase 67 U/L 69 U/L Troponin I LESS THAN 0.02 NG/ML LESS THAN 0.02 NG/ML White Blood Count 7.2 TH/MM3 Red Blood Count 4.16 MIL/MM3 Hemoglobin 13.0 GM/DL Hematocrit 38.9 % Mean Corpuscular Volume 93.6 FL Mean Corpuscular Hemoglobin 31.3 PG Mean Corpuscular Hemoglobin Concent 33.4 % Red Cell Distribution Width 15.1 % Platelet Count 147 TH/MM3 Mean Platelet Volume 7.9 FL Neutrophils (%) (Auto) 71.9 % Lymphocytes (%) (Auto) 18.1 % Monocytes (%) (Auto) 9.0 % Eosinophils (%) (Auto) 0.7 % Basophils (%) (Auto) 0.3 % Neutrophils # (Auto) 5.1 TH/MM3 Lymphocytes # (Auto) 1.3 TH/MM3 Monocytes # (Auto) 0.6 TH/MM3 Eosinophils # (Auto) 0.1 TH/MM3 Basophils # (Auto) 0.0 TH/MM3 CBC Comment DIFF FINAL Differential Comment Blood Urea Nitrogen 26 MG/DL Creatinine 1.61 MG/DL Random Glucose 120 MG/DL Total Protein 7.0 GM/DL Albumin 3.4 GM/DL Calcium Level 8.8 MG/DL Alkaline Phosphatase 102 U/L Aspartate Amino Transf (AST/SGOT) 19 U/L Alanine Aminotransferase (ALT/SGPT) 24 U/L Total Bilirubin 0.6 MG/DL Sodium Level 139 MEQ/L Potassium Level 4.2 MEQ/L Chloride Level 103 MEQ/L Carbon Dioxide Level 28.6 MEQ/L Anion Gap 7 MEQ/L Estimat Glomerular Filtration Rate 42 ML/MIN Assessment and Plan Problem List: (1) Atrial fibrillation with rapid ventricular response ICD Codes: I48.91 - Atrial fibrillation with rapid ventricular response Status: Chronic (2) Dyspnea ICD Codes: R06.00 - Dyspnea, unspecified Status: Acute (3) HTN (hypertension) ICD Codes: I10 - Essential (primary) hypertension Status: Chronic (4) Diabetes mellitus type 2, uncontrolled ICD Codes: E11.9 - Diabetes mellitus type 2, uncontrolled Status: Chronic (5) CAD (coronary artery disease) ICD Codes: I25.10 - CAD (coronary artery disease) Status: Chronic (6) Ischemic cardiomyopathy ICD Codes: I25.5 - Ischemic cardiomyopathy Status: Chronic (7) Chronic systolic congestive heart failure ICD Codes: I50.22 - Chronic systolic congestive heart failure Status: Chronic Assessment and Plan 1) Afib with RVR Dr. Myrick has seen for Afib ablation, originally planned for March but has been difficult to control and patient symptomatic Consider Afib ablation this week 2) Con't Xarelto 3) Rates currently 100-110, if further elevation would restart Cardizerudy drgaetano 4) Will defer to Dr. Myrick for further workup/management Will see PRN, call with questions Sid Harrison DO Mar 12, 2017 14:13
--- NOTE | 2017-03-12 15:15 | EKG ---
Date Performed: 03/11/2017 Time Performed: 12:18:10 PTAGE: 76 years EKG: ATRIAL FLUTTER/TACHYCARDIA WITH RAPID VENTRICULAR RESPONSE RIGHT BUNDLE BRANCH BLOCK LEFT A NTERIOR FASCICULAR BLOCK ST DEVIATION AND MODERATE T-WAVE ABNORMALITY, CONSIDER LATERAL ISCHEMIA ABNO RMAL ECG PREVIOUS TRACING : 02/21/2017 08.23 DOCTOR: Franco Mccallum Interpretating Date/Time 03/12/2017 15:14:14
[2017-03-12] MEDS: RIVAROXABAN 20 MG TAB PO SCH (17:18)
[2017-03-12] MEDS: ATORVASTATIN 80 MG TAB PO SCH (20:25)
[2017-03-12] MEDS: INSULIN DETEMIR 100 UNITS/ML VIAL SQ SCH (20:25)
--- NOTE | 2017-03-12 23:55 | MB ---
cc: SHARITA FREY M.D. DATE OF CONSULTATION: 03/12/2017 REASON FOR CONSULTATION: Atrial fibrillation, shortness of breath. HISTORY OF PRESENT ILLNESS: Mr. Bolton is a 76-year-old gentleman with history of obesity, high blood pressure, atrial fibrillation. He was scheduled for previous atrial fibrillation ablation. The patient was cancelled due to a common cold. He has history of coronary artery disease, diabetes mellitus. He was admitted to the emergency room due to atrial fibrillation with biventricular response. Medication was initiated. I was consulted for evaluation and management. The chart was reviewed. The patient was evaluated. ALLERGIES None. SOCIAL HISTORY He quit smoking 20 years ago. FAMILY HISTORY Noncontributory to his current medical condition. MEDICATIONS 1. Xarelto 20 milligrams a day. 2. Lipitor. 3. Toprol XL 4. Cardizem CD 180 milligrams a day. 5. Lisinopril 6. Keppra. 7. Lasix 8. Glipizide. REVIEW OF SYSTEMS He refers some shortness of breath, palpitation but no chest pain, no discomfort. PHYSICAL EXAMINATION: Alert, fully oriented, pleasant as usual. VITAL SIGNS: Blood pressure 115/77, pulse 114, respirations irregular, respiratory rate 18. Lungs: Ventilated. Cardiovascular: S1-S2 tachycardic regular. Abdomen: Obese. No masses. No bruits. Extremities: With minimal edema. Electrocardiogram shows atrial fibrillation, left atrial tachycardia, diffuse ST and T-wave changes. Right bundle-branch block with possible left anterior fascicular block. LABORATORY DATA Hemoglobin is 13, white blood cell 7.2, potassium 4.2, creatinine is 1.61, troponin less than 0.01. ASSESSMENT AND RECOMMENDATIONS Mr. Bolton has atrial fibrillation, very difficult to control. He is very symptomatic. He was previously scheduled for ablation. The rate cannot be controlled. Electrophysiology study and ablation discussed with him. The risks, the nature and the benefit of the procedures are clearly stated to him. Risks include pneumothorax, cardiac perforation, stroke and even . He understood and agreed to proceed. I will schedule the gentleman for the procedure during hospitalization. His creatinine is improving from 1.71 to 1.61 during the night. It will be repeated in the morning. Continue current medication. Xarelto will be held beginning tomorrow and ablation on Friday. MD EARLINE Cabrales /8:00 PM /11:32 PM
[2017-03-13] VITALS (25 sets, daily range): BP systolic 99–116; BP diastolic 64–76; PULSE 110–116; RESP 16–18; TEMP 97.5–98.1; O2SAT 96–97
[2017-03-13] MEDS: INSULIN ASPART SUPPLEMENTAL SCALE SQ SCH ×4 (08:00→19:59)
[2017-03-13] MEDS: POTASSIUM CHLORIDE 20 MEQ CONTROLLED RELEASE TAB PO SCH ×2 (08:16→20:00)
[2017-03-13] MEDS: DILTIAZEM-CD 180 MG CAP ER PO SCH (08:16)
[2017-03-13] MEDS: levETIRAcetam 500 MG TAB PO SCH ×2 (08:17→20:00)
[2017-03-13] MEDS: PANTOPRAZOLE SOD 20 MG DELAYED RELEASE TAB PO SCH (08:17)
[2017-03-13] MEDS: LISINOPRIL 10 MG TAB PO SCH (08:17)
[2017-03-13] MEDS: TORSEMIDE 20 MG TAB PO SCH ×2 (08:17→19:59)
[2017-03-13] MEDS: SODIUM CHLORIDE 0.9% FLUSH 10 ML FLUSH IV FLUSH SCH ×2 (08:18→20:00)
[2017-03-13] MEDS: METOPROLOL SUCCINATE 50 MG EXTENDED RELEASE TAB PO SCH (08:18)
[2017-03-13 09:02] LABS: AUTOMATED NEUTROPHIL # 5.7 TH/MM3 (1.8-7.7); BASOPHIL % 0.6 % (0.0-2.0); EOSINOPHIL # 0.1 TH/MM3 (0-0.4); EOSINOPHIL % 1.1 % (0.0-4.0); HEMATOCRIT 40.2 % (39.0-51.0); HEMOGLOBIN 13.3 GM/DL (13.0-17.0); LYMPH % 15.9 % (9.0-44.0); LYMPHOCYTE # 1.3 TH/MM3 (1.0-4.8); MEAN CORPUSCULAR HEMOGLOBIN 31.2 PG (27.0-34.0); MEAN CORPUSCULAR HGB CONC 33.2 % (32.0-36.0); MEAN PLATELET VOLUME 7.6 FL (7.0-11.0); MONO % 10.1 % (0.0-8.0); MONOCYTE # 0.8 TH/MM3 (0-0.9); NEUT % 72.3 % (16.0-70.0); PLATELET COUNT 151 TH/MM3 (150-450); RED BLOOD COUNT 4.28 MIL/MM3 (4.50-5.90); RED CELL DISTRIBUTION WIDTH 15.3 % (11.6-17.2); WHITE BLOOD COUNT 7.9 TH/MM3 (4.0-11.0)
--- NOTE | 2017-03-13 09:08 | HHI.PR ---
Subjective Remarks Follow-up Blaze. fib with RVR 03/12/17-patient seen and examined, still on Cardizem drip and rate not controlled. Patient currently denies any chest pain. Case discussed with facer operator Dr. Elen lima and plan for possible cardiac ablation within the next 48 hours 03/13/17-patient seen and examined, no chest pain or shortness of breath. Still heart rate controlled and currently on Cardizem drip. Objective Vitals Vital Signs Date Time Temp Pulse Resp B/P (MAP) Pulse Ox O2 Delivery O2 Flow Rate FiO2 03/13/17 06:00 112 03/13/17 05:00 112 03/13/17 04:00 113 03/13/17 03:00 110 03/13/17 03:00 97.6 113 18 113/76 (88) 97 03/13/17 02:00 110 03/13/17 01:00 114 03/13/17 00:00 110 03/12/17 23:00 112 03/12/17 23:00 97.9 113 18 106/72 (83) 97 03/12/17 22:00 112 03/12/17 21:00 112 03/12/17 20:00 114 03/12/17 19:00 114 03/12/17 19:00 98.0 113 18 102/71 (81) 97 03/12/17 18:00 114 03/12/17 17:04 114 03/12/17 16:04 115 03/12/17 15:18 98.0 115 18 97/67 (77) 97 03/12/17 15:18 114 03/12/17 14:03 115 03/12/17 13:17 114 03/12/17 12:03 113 03/12/17 11:18 113 03/12/17 11:18 97.6 112 18 100/66 (77) 96 03/12/17 10:21 111 03/12/17 09:13 112 I/O 03/12/17 03/12/17 03/12/17 03/13/17 03/13/17 03/13/17 07:00 15:00 23:00 07:00 15:00 23:00 Intake Total 360 ml 840 ml 630 ml Output Total 475 ml 350 ml 300 ml Balance -115 ml 490 ml 330 ml Intake Oral 360 ml 840 ml 630 ml Output Urine Total 475 ml 350 ml 300 ml # Voids 3 # Bowel Movements 1 Result Diagram: 03/13/17 0852 03/12/17 0150 Objective Remarks GENERAL: NAD SKIN: Warm and dry. HEAD: Normocephalic. EYES: No scleral icterus. No injection or drainage. NECK: Supple, trachea midline. No JVD or lymphadenopathy. CARDIOVASCULAR: Irregular Regular rate and rhythm without murmurs, gallops, or rubs. RESPIRATORY: Breath sounds equal bilaterally. No accessory muscle use. GASTROINTESTINAL: Abdomen soft, non-tender, nondistended. MUSCULOSKELETAL: No cyanosis, or edema. BACK: Nontender without obvious deformity. No CVA tenderness. A/P Problem List: (1) Atrial fibrillation with rapid ventricular response ICD Code: I48.91 - Atrial fibrillation with rapid ventricular response Status: Chronic (2) Chronic systolic congestive heart failure ICD Code: I50.22 - Chronic systolic congestive heart failure Status: Chronic Assessment and Plan Paroxysmal A. fib Atrial fibrillation rapid ventricular response Patients with recent cardiac ablation 02/24/17 Appreciate input from cardiology/EP and plan for cardiac ablation possible Continue Cardizem drip, beta [place], Hold Xarelto today ACS ruled out per protocol with serial cardiac enzyme and EKG History of chronic systolic CHF Chest x-ray noted and reviewed by me and stable from previous exam 02/21/17 BNP moderately elevated Continue outpatient medications including torsemide 20 mg twice a day Diabetes type 2 Continue Levemir 10 units at bedtime, insulin sliding scale History of seizure disorder Currently on Keppra Hyperlipidemia on statin DVT prophylaxis: Bilateral SCDs Joo Frances MD Mar 13, 2017 09:08
[2017-03-13 09:28] LABS: BICARBONATE 27.6 MEQ/L (21.0-32.0); CREATININE 1.58 MG/DL (0.60-1.30)
--- NOTE | 2017-03-13 15:29 | HHI.PR ---
Subjective Remarks Some SOB Objective Vital Signs Date Time Temp Pulse Resp B/P (MAP) Pulse Ox O2 Delivery O2 Flow Rate FiO2 03/13/17 15:03 113 03/13/17 15:03 98.0 113 18 104/65 (78) 97 03/13/17 14:56 113 03/13/17 13:05 113 03/13/17 12:08 113 03/13/17 11:02 97.8 110 18 104/64 (77) 97 03/13/17 11:02 111 03/13/17 10:21 112 03/13/17 09:28 113 03/13/17 08:15 97.5 113 18 116/75 (89) 97 03/13/17 08:15 112 03/13/17 06:00 112 03/13/17 05:00 112 03/13/17 04:00 113 03/13/17 03:00 110 03/13/17 03:00 97.6 113 18 113/76 (88) 97 03/13/17 02:00 110 03/13/17 01:00 114 03/13/17 00:00 110 03/12/17 23:00 112 03/12/17 23:00 97.9 113 18 106/72 (83) 97 03/12/17 22:00 112 03/12/17 21:00 112 03/12/17 20:00 114 03/12/17 19:00 114 03/12/17 19:00 98.0 113 18 102/71 (81) 97 03/12/17 18:00 114 03/12/17 17:04 114 03/12/17 16:04 115 I/O 03/12/17 03/12/17 03/12/17 03/13/17 03/13/17 03/13/17 07:00 15:00 23:00 07:00 15:00 23:00 Intake Total 360 ml 840 ml 630 ml Output Total 475 ml 350 ml 300 ml Balance -115 ml 490 ml 330 ml Intake Oral 360 ml 840 ml 630 ml Output Urine Total 475 ml 350 ml 300 ml # Voids 3 # Bowel Movements 1 Result Diagram: 03/13/17 0852 03/13/17 0852 Imaging Alert, fully oriented Lungs: ventilated Heart: S1, S2 irregular, tachycardia abdomen: soft, no mass Ext: no edema Last Impressions Chest X-Ray 03/11/17 1154 Signed Impressions: Service Date/Time: Saturday, March 11, 2017 12:39 - CONCLUSION: Stable from 02/21/17. Complete cardiomegaly, bibasilar parenchymal changes. Anthony Roberts MD FACR Current Medications Medications (Trade) Dose Ordered Sig/Jaz Route Start Time Stop Time Status Last Admin (Lipitor) 80 mg HS PO 03/11/17 21:00 03/12/17 20:25 (Cardizem Cd) 180 mg DAILY PO 03/12/17 09:00 03/13/17 08:16 (Keppra) 1,000 mg BID PO 03/11/17 21:00 03/13/17 08:17 (Prinivil) 10 mg DAILY PO 03/12/17 09:00 03/13/17 08:17 (KCl) 20 meq Q12HR PO 03/11/17 21:00 03/13/17 08:16 (Demadex) 20 mg BID PO 03/11/17 21:00 03/13/17 08:17 (Toprol Xl) 200 mg DAILY PO 03/12/17 09:00 03/13/17 08:18 (Protonix) 20 mg DAILY PO 03/12/17 09:00 03/13/17 08:17 (NS Flush) 2 ml UNSCH PRN IV FLUSH 03/11/17 14:15 (NS Flush) 2 ml BID IV FLUSH 03/11/17 21:00 03/13/17 08:18 (Tylenol) 650 mg Q4H PRN PO 03/11/17 14:15 (Zofran Inj) 4 mg Q6H PRN IVP 03/11/17 14:15 (Tylenol) 650 mg Q6H PRN PO 03/11/17 14:15 ([place] 5-325 Mg) 1 tab Q4H PRN PO 03/11/17 14:15 (Narcan Inj) 0.4 mg UNSCH PRN IV PUSH 03/11/17 14:15 (Milk Of Magnesia Liq) 30 ml Q12H PRN PO 03/11/17 14:15 (Duoneb Neb) 1 ampule Q2HR NEB PRN NEB 03/11/17 14:15 (D50w (Vial) Inj) 50 ml UNSCH PRN IV PUSH 03/11/17 14:15 (Glucagon Inj) 1 mg UNSCH PRN OTHER 03/11/17 14:15 (NovoLOG SUPPLEMENTAL SCALE) 1 ACHS SLIDING SCALE SQ 03/11/17 17:00 03/13/17 11:38 (Levemir Inj) 10 units HS SQ 03/11/17 21:00 03/12/17 20:25 (Xarelto) 20 mg WITH DINNER PO 03/11/17 18:00 Future Hold 03/12/17 17:18 Diltiazem HCl 125 mg/Sodium Chloride 125 ml @ 5 mls/hr TITRATE PRN IV 03/11/17 19:30 Assessment and Plan Problem List: (1) CHF exacerbation ICD Codes: I50.9 - Heart failure, unspecified Status: Acute Plan: On optimal medical management SOB exacerbated by atrial tach/ atrial fib (2) HTN (hypertension) ICD Codes: I10 - Essential (primary) hypertension Status: Chronic Plan: SBP 104 (3) Atrial fibrillation with rapid ventricular response ICD Codes: I48.91 - Atrial fibrillation with rapid ventricular response Status: Chronic Plan: In atrial fib/ atrial tach. HR difficult to control despite multiple medications. EPS and ablation tomorrow Case discussed with the patient and his daughter. They understand the risks, the nature and benefits of the procedure They agree to proceed Leonel Myrick MD Mar 13, 2017 15:29
[2017-03-13] MEDS: INSULIN DETEMIR 100 UNITS/ML VIAL SQ SCH (19:58)
[2017-03-13] MEDS: ATORVASTATIN 80 MG TAB PO SCH (19:59)
[2017-03-14] VITALS (15 sets, daily range): BP systolic 102–116; BP diastolic 64–81; PULSE 89–116; RESP 16; TEMP 97.4–98.2; O2SAT 97–99
[2017-03-14] MEDS: INSULIN ASPART SUPPLEMENTAL SCALE SQ SCH ×2 (08:00→12:00)
[2017-03-14] MEDS: METOPROLOL SUCCINATE 50 MG EXTENDED RELEASE TAB PO SCH (10:21)
[2017-03-14] MEDS: DILTIAZEM-CD 180 MG CAP ER PO SCH (10:21)
[2017-03-14] MEDS: SODIUM CHLORIDE 0.9% FLUSH 10 ML FLUSH IV FLUSH SCH (10:21)
[2017-03-14] MEDS: PANTOPRAZOLE SOD 20 MG DELAYED RELEASE TAB PO SCH (10:22)
[2017-03-14] MEDS: LISINOPRIL 10 MG TAB PO SCH (10:22)
[2017-03-14] MEDS: levETIRAcetam 500 MG TAB PO SCH (10:22)
[2017-03-14] MEDS: POTASSIUM CHLORIDE 20 MEQ CONTROLLED RELEASE TAB PO SCH (10:23)
[2017-03-14] MEDS: TORSEMIDE 20 MG TAB PO SCH (10:25)
--- NOTE | 2017-03-14 12:30 | HHI.PR ---
Subjective Remarks Follow-up A. fib with RVR 03/12/17-patient seen and examined, still on Cardizem drip and rate not controlled. Patient currently denies any chest pain. Case discussed with fleece tier Dr. Elen lima and plan for possible cardiac ablation within the next 48 hours 03/13/17-patient seen and examined, no chest pain or shortness of breath. Still heart rate controlled and currently on Cardizem drip. 03/14/17-patient seen and examined,. States he becomes short of breath with exertions. Plan for cardiac ablation today Objective Vitals Vital Signs Date Time Temp Pulse Resp B/P (MAP) Pulse Ox O2 Delivery O2 Flow Rate FiO2 03/14/17 12:00 98 03/14/17 11:00 102 03/14/17 11:00 98.2 114 16 102/64 (77) 98 03/14/17 10:26 102 03/14/17 09:00 116 03/14/17 08:00 112 03/14/17 07:00 112 03/14/17 07:00 97.4 116 16 116/81 (93) 99 03/14/17 06:32 112 03/14/17 05:28 111 03/14/17 04:02 111 03/14/17 03:10 110 03/14/17 03:10 97.6 112 16 108/69 (82) 97 03/14/17 02:09 112 03/14/17 01:10 114 03/14/17 00:42 113 03/13/17 23:45 98.0 113 17 99/66 (77) 96 03/13/17 23:15 116 03/13/17 22:14 112 03/13/17 21:10 112 03/13/17 20:15 114 03/13/17 19:35 98.1 114 16 105/66 (79) 96 03/13/17 19:33 114 03/13/17 18:22 114 03/13/17 17:03 115 03/13/17 16:06 113 03/13/17 15:03 113 03/13/17 15:03 98.0 113 18 104/65 (78) 97 03/13/17 14:56 113 03/13/17 13:05 113 I/O 12/28/17 12/28/17 03/13/17 03/14/17 03/14/17 03/14/17 07:00 15:00 23:00 07:00 15:00 23:00 Intake Total 630 ml 720 ml 480 ml Output Total 300 ml 1050 ml 575 ml Balance 330 ml -330 ml -95 ml Intake Oral 630 ml 720 ml 480 ml Output Urine Total 300 ml 1050 ml 575 ml # Voids 3 # Bowel Movements 0 Result Diagram: 03/13/17 0852 03/13/17 0852 Imaging Last Impressions Chest X-Ray 03/11/17 1154 Signed Impressions: Service Date/Time: Saturday, March 11, 2017 12:39 - CONCLUSION: Stable from 02/21/17. Complete cardiomegaly, bibasilar parenchymal changes. Anthony Roberts MD FACR Objective Remarks GENERAL: NAD SKIN: Warm and dry. HEAD: Normocephalic. EYES: No scleral icterus. No injection or drainage. NECK: Supple, trachea midline. No JVD or lymphadenopathy. CARDIOVASCULAR: Irregular Regular rate and rhythm without murmurs, gallops, or rubs. RESPIRATORY: Breath sounds equal bilaterally. No accessory muscle use. GASTROINTESTINAL: Abdomen soft, non-tender, nondistended. MUSCULOSKELETAL: No cyanosis, or edema. BACK: Nontender without obvious deformity. No CVA tenderness. A/P Problem List: (1) Atrial fibrillation with rapid ventricular response ICD Code: I48.91 - Atrial fibrillation with rapid ventricular response Status: Chronic (2) Chronic systolic congestive heart failure ICD Code: I50.22 - Chronic systolic congestive heart failure Status: Chronic Assessment and Plan Paroxysmal A. fib Atrial fibrillation rapid ventricular response Patients with recent cardiac ablation 02/24/17 Appreciate input from cardiology/EP and plan for cardiac ablation today 03/14 Continue Cardizem drip, beta [place], Hold Xarelto ACS ruled out per protocol with serial cardiac enzyme and EKG History of chronic systolic CHF Chest x-ray noted and reviewed by me and stable from previous exam 02/21/17 BNP moderately elevated Continue outpatient medications including torsemide 20 mg twice a day Diabetes type 2 Continue Levemir 10 units at bedtime, insulin sliding scale History of seizure disorder Currently on Keppra Hyperlipidemia on statin DVT prophylaxis: Bilateral SCDs Joo Frances MD Mar 14, 2017 12:30
--- NOTE | 2017-03-14 15:23 | HHI.PR ---
Subjective Remarks Feeling ok Objective Vital Signs Date Time Temp Pulse Resp B/P (MAP) Pulse Ox O2 Delivery O2 Flow Rate FiO2 03/14/17 14:00 89 03/14/17 13:00 101 03/14/17 12:00 98 03/14/17 11:00 102 03/14/17 11:00 98.2 114 16 102/64 (77) 98 03/14/17 10:26 102 03/14/17 09:00 116 03/14/17 08:00 112 03/14/17 07:00 112 03/14/17 07:00 97.4 116 16 116/81 (93) 99 03/14/17 06:32 112 03/14/17 05:28 111 03/14/17 04:02 111 03/14/17 03:10 110 03/14/17 03:10 97.6 112 16 108/69 (82) 97 03/14/17 02:09 112 03/14/17 01:10 114 03/14/17 00:42 113 03/13/17 23:45 98.0 113 17 99/66 (77) 96 03/13/17 23:15 116 03/13/17 22:14 112 03/13/17 21:10 112 03/13/17 20:15 114 03/13/17 19:35 98.1 114 16 105/66 (79) 96 03/13/17 19:33 114 03/13/17 18:22 114 03/13/17 17:03 115 03/13/17 16:06 113 I/O 03/13/17 03/13/17 03/13/17 03/14/17 03/14/17 03/14/17 07:00 15:00 23:00 07:00 15:00 23:00 Intake Total 630 ml 720 ml 480 ml Output Total 300 ml 1050 ml 575 ml Balance 330 ml -330 ml -95 ml Intake Oral 630 ml 720 ml 480 ml Output Urine Total 300 ml 1050 ml 575 ml # Voids 3 # Bowel Movements 0 Result Diagram: 03/13/1752 03/13/17851 Imaging Alert, fully oriented lungs: ventilated heart: s1, S2 tachycardia, regular Abdomen: soft, no mass Ext: no edema Last Impressions Chest X-Ray 03/11/17 1154 Signed Impressions: Service Date/Time: Saturday, March 11, 2017 12:39 - CONCLUSION: Stable from 02/21/17. Complete cardiomegaly, bibasilar parenchymal changes. Anthony Roberts MD FACR Current Medications Medications (Trade) Dose Ordered Sig/Jaz Route Start Time Stop Time Status Last Admin (Lipitor) 80 mg HS PO 03/11/17 21:00 03/13/17 19:59 (Cardizem Cd) 180 mg DAILY PO 03/12/17 09:00 03/14/17 10:21 (Keppra) 1,000 mg BID PO 03/11/17 21:00 03/14/17 10:22 (Prinivil) 10 mg DAILY PO 03/12/17 09:00 03/14/17 10:22 (KCl) 20 meq Q12HR PO 03/11/17 21:00 03/14/17 10:23 (Demadex) 20 mg BID PO 03/11/17 21:00 03/14/17 10:25 (Toprol Xl) 200 mg DAILY PO 03/12/17 09:00 03/14/17 10:21 (Protonix) 20 mg DAILY PO 03/12/17 09:00 03/14/17 10:22 (NS Flush) 2 ml UNSCH PRN IV FLUSH 03/11/17 14:15 (NS Flush) 2 ml BID IV FLUSH 03/11/17 21:00 03/14/17 10:21 (Tylenol) 650 mg Q4H PRN PO 03/11/17 14:15 (Zofran Inj) 4 mg Q6H PRN IVP 03/11/17 14:15 (Tylenol) 650 mg Q6H PRN PO 03/11/17 14:15 ([place] 5-325 Mg) 1 tab Q4H PRN PO 03/11/17 14:15 (Narcan Inj) 0.4 mg UNSCH PRN IV PUSH 03/11/17 14:15 (Milk Of Magnesia Liq) 30 ml Q12H PRN PO 03/11/17 14:15 (Duoneb Neb) 1 ampule Q2HR NEB PRN NEB 03/11/17 14:15 (D50w (Vial) Inj) 50 ml UNSCH PRN IV PUSH 03/11/17 14:15 (Glucagon Inj) 1 mg UNSCH PRN OTHER 03/11/17 14:15 (NovoLOG SUPPLEMENTAL SCALE) 1 ACHS SLIDING SCALE SQ 03/11/17 17:00 03/13/17 19:59 (Levemir Inj) 10 units HS SQ 03/11/17 21:00 03/13/17 19:58 (Xarelto) 20 mg WITH DINNER PO 03/11/17 18:00 Future Hold 03/12/17 17:18 Diltiazem HCl 125 mg/Sodium Chloride 125 ml @ 5 mls/hr TITRATE PRN IV 03/11/17 19:30 Assessment and Plan Problem List: (1) CHF exacerbation ICD Codes: I50.9 - Heart failure, unspecified Status: Acute Plan: On optimal medical management SOB exacerbated by atrial tach/ atrial fib Stable now (2) HTN (hypertension) ICD Codes: I10 - Essential (primary) hypertension Status: Chronic Plan: SBP 101 (3) Atrial fibrillation with rapid ventricular response ICD Codes: I48.91 - Atrial fibrillation with rapid ventricular response Status: Chronic Plan: I atrial tach/ atrial fib patient was fed this morning despite there was an NPO note for after 0700 Patient did eat at 10;30 Procedure cannot be performed today This is a very long weekend Can be DH. Will be readmitted next week. case discussed extensively with patient and his family Leonel Myrick MD Mar 14, 2017 15:23
[2017-03-14] MEDS ORDERED: CARD180C5 PO (15:46)
--- NOTE | 2017-03-14 15:49 | HHI.PR ---
Addendum to Inpatient Note Addendum Reason: Additional Documentation Additional Information Plan for cardiac ablation being cancelled 2/2 patient not being NPO after 7AM; Per Cardiology, patient will be readmitted next week for Cardiac ablation Will discharge patient home Joo Frances MD Mar 14, 2017 15:49
--- NOTE | 2017-03-14 15:50 | HHI.DS ---
Discharge Summary Admission Date Mar 11, 2017 at 13:28 Discharge Date: Mar 14, 2017 Admitting Diagnosis atrial fibrillation in RVR (1) Atrial fibrillation with rapid ventricular response ICD Code: I48.91 - Atrial fibrillation with rapid ventricular response Status: Chronic (2) Chronic systolic congestive heart failure ICD Code: I50.22 - Chronic systolic congestive heart failure Status: Chronic Procedures none Brief History - From Admission 76 year old male with a history of ischemic cardiomyopathy, Afib, CHF presenting to the ED with worsening shortness of breath over the past several weeks to month associated with heart palpitation however without any chest pain. Patient endorses bilateral lower extremity edema. Patient is status post cardiac ablation 02/24/17. Patient called his sealer dry cell's office today who advised him to come to the emergency department for further examination. Vitals on admission T 97.9,HR 112, RR 16, BP 113/59 and 100%RA. CXR stable from 02/21/17 with cardiomegaly. BNP 323. He denies any GI bleed CBC/BMP: 03/13/17 0852 03/13/17 0852 Significant Findings Laboratory Tests Test 03/11/17 19:28 03/12/17 01:50 03/13/17 08:52 Troponin I LESS THAN 0.02 NG/ML LESS THAN 0.02 NG/ML Red Blood Count 4.16 MIL/MM3 (4.50-5.90) 4.28 MIL/MM3 (4.50-5.90) Hematocrit 38.9 % (39.0-51.0) Platelet Count 147 TH/MM3 (150-450) Neutrophils (%) (Auto) 71.9 % (16.0-70.0) 72.3 % (16.0-70.0) Monocytes (%) (Auto) 9.0 % (0.0-8.0) 10.1 % (0.0-8.0) Blood Urea Nitrogen 26 MG/DL (7-18) 26 MG/DL (7-18) Creatinine 1.61 MG/DL (0.60-1.30) 1.58 MG/DL (0.60-1.30) Random Glucose 120 MG/DL (74-106) 128 MG/DL (74-106) Estimat Glomerular Filtration Rate 42 ML/MIN (>89) 43 ML/MIN (>89) Imaging Last Impressions Chest X-Ray 03/11/17 1154 Signed Impressions: Service Date/Time: Saturday, March 11, 2017 12:39 - CONCLUSION: Stable from 02/21/17. Complete cardiomegaly, bibasilar parenchymal changes. Anthony Roberts MD FACR PE at Discharge GENERAL: NAD SKIN: Warm and dry. HEAD: Normocephalic. EYES: No scleral icterus. No injection or drainage. NECK: Supple, trachea midline. No JVD or lymphadenopathy. CARDIOVASCULAR: Irregular Regular rate and rhythm without murmurs, gallops, or rubs. RESPIRATORY: Breath sounds equal bilaterally. No accessory muscle use. GASTROINTESTINAL: Abdomen soft, non-tender, nondistended. MUSCULOSKELETAL: No cyanosis, or edema. BACK: Nontender without obvious deformity. No CVA tenderness. Hospital Course While in the hospital, patient was treated for: Paroxysmal A. fib Atrial fibrillation rapid ventricular response Patients with recent cardiac ablation 02/24/17 Appreciated input from cardiology/EP over a decision was made to discharge the patient and have him return to the hospital the following week for planned cardiac ablation He was treated with Cardizem drip, beta austin, Xarelto ACS ruled out per protocol with serial cardiac enzyme and EKG History of chronic systolic CHF Chest x-ray noted and reviewed by me and stable from previous exam 02/21/17 BNP moderately elevated Treated with outpatient medications including torsemide 20 mg twice a day Diabetes type 2 Treated with Levemir 10 units at bedtime, insulin sliding scale History of seizure disorder Treated with Keppra Hyperlipidemia Treated with statin DVT prophylaxis: Bilateral SCDs Pt Condition on Discharge: Stable Discharge Disposition: Discharge Home Discharge Time: <= 30 minutes Discharge Instructions DIET: Follow Instructions for: Heart Healthy Diet Activities you can perform: Regular-No Restrictions Follow up Referrals: Cardiology PCP Follow-up - 1 Week New Medications: Diltiazem CD 24 HR (Cardizem CD 24 HR) 180 Mg Caper 180 MG PO DAILY for Regulate Heart Beat, #30 CAP Continued Medications: Atorvastatin (Atorvastatin) 80 Mg Tab 80 MG PO HS for Cholesterol Management, TAB Glipizide (Glipizide) 5 Mg Tab 5 MG PO DAILY for Blood Sugar Management, TAB 0 Refills Take 30 minutes before a meal Insulin Human NPH Inj (Humulin N Inj) 1,000 Unit/10 Ml Vial UNITS SQ DIRECTED for Blood Sugar Management, ML 0 Refills Levetiracetam (Keppra) 500 Mg Tab 1000 MG PO BID for seizure, #60 TAB Lisinopril (Lisinopril) 10 Mg Tab 10 MG PO DAILY, #30 TAB 4 Refills Metoprolol Succinate ER 24 HR (Metoprolol Succinate ER 24 HR) 200 Mg Tab 200 MG PO DAILY, TAB 0 Refills Nitroglycerin SL (Nitroglycerin SL) 0.4 Mg Subl 0.4 MG SL DIRECTED PRN for CHEST PAIN, TAB.SL 0 Refills ONE TABLET UNDER THE TONGUE NEEDED FOR CHEST PAIN, MAY REPEAT EVERY FIVE MINUTES FOR A TOTAL OF 3 DOSES OR CALL 911 IF NO RELIEF Omeprazole (Omeprazole) 20 Mg Tab 20 MG PO DAILY, TAB 0 Refills Potassium Chloride Microencaps (Klor-Con M20) 20 Meq Tab 20 MEQ PO Q12HR for Electrolyte Replacement, TAB 0 Refills Rivaroxaban (Xarelto) 20 Mg Tab 20 MG PO HS for Blood Clot Prevention, TAB 0 Refills Torsemide (Torsemide) 20 Mg Tab 20 MG PO BID for Heart, #180 TAB 3 Refills Discontinued Medications: Diltiazem CD 24 HR (Cardizem CD 24 HR) 180 Mg Caper 180 MG PO DAILY, CAP 0 Refills Joo Frances MD Mar 14, 2017 15:50
== END 2017-03-14 16:00 | disposition home or self-care (01) | DRG 309 ==
LOC: NEPE 11:45 → NEDA 13:28 → HCPC 15:11
PROVIDERS: ADMIT Hospitalist; ATTEND Hospitalist
DX: I48.0 Paroxysmal atrial fibrillation (principal); I50.22 Chronic systolic (congestive) heart failure; I11.0 Hypertensive heart disease with heart failure; E11.65 Type 2 diabetes mellitus with hyperglycemia; G40.909 Epilepsy, unspecified, not intractable, without status epilepticus; I47.1 Supraventricular tachycardia; I25.10 Atherosclerotic heart disease of native coronary artery without angina pectoris; E78.5 Hyperlipidemia, unspecified; I25.5 Ischemic cardiomyopathy; I48.92 Unspecified atrial flutter; K21.9 Gastro-esophageal reflux disease without esophagitis; I25.2 Old myocardial infarction; Z87.891 Personal history of nicotine dependence; E66.9 Obesity, unspecified; I45.2 Bifascicular block; H91.91 Unspecified hearing loss, right ear; M19.90 Unspecified osteoarthritis, unspecified site; Z53.09 Procedure and treatment not carried out because of other contraindication; Z79.01 Long term (current) use of anticoagulants; Z79.4 Long term (current) use of insulin; Z86.73 Personal history of transient ischemic attack (TIA), and cerebral infarction without residual deficits; Z95.5 Presence of coronary angioplasty implant and graft; Z95.810 Presence of automatic (implantable) cardiac defibrillator
CPT/HCPCS: 71010; 76937; 80048; 80053; 82550; 82552; 82948; 83735; 83880; 84484; 85025; 85610; 85730; 93005; 96374; 96375; J1815

== ENCOUNTER 2017-03-21 05:56 | Day surgery (SDC) | payer OTHER ==
[2017-03-21] VITALS (8 sets, daily range): BP systolic 122–137; BP diastolic 76–90; PULSE 76–115; RESP 18–24; TEMP 97.2–98.5; O2SAT 95–99
[~2017-03-21] VITALS: Ht 172.7 cm; Wt 98.8 kg
[2017-03-21] MEDS ORDERED: SODIUM CHLORID 0.9% 500 ML IV PRN (06:30)
[2017-03-21] MEDS ORDERED: LORazepam 1 MG TAB SL SCH (06:30)
[2017-03-21] MEDS ORDERED: LACTATED RINGER'S 1000 ML IV PRN (06:30)
[2017-03-21] MEDS ORDERED: CHLORHEXIDINE GLUCONATE 2 % 1 PACK (2 CLOTHS) TOPICAL PRN (06:30)
[2017-03-21] MEDS ORDERED: POVIDONE IODINE 5% (ANTISEPSIS KIT) 4 APPLICATIONS EACH NARE PRN (06:30)
[2017-03-21] MEDS ORDERED: SODIUM CHLORID 0.9% 500 ML INJ 500 ML IV SCH (06:30)
[2017-03-21] MEDS ORDERED: METOPROLOL TARTRATE 25 MG TAB PO PRN (06:30)
[2017-03-21] MEDS ORDERED: HEPARIN SODIUM - IV 10,000 UNITS/10 ML VIAL ONE (07:03)
[2017-03-21] MEDS ORDERED: HEPARIN-D5W 25,000 U/250 ML 250 ML ONE (07:03)
[2017-03-21] MEDS ORDERED: FAMOTIDINE 20 MG/2 ML VIAL ONE (07:03)
[2017-03-21] MEDS ORDERED: SODIUM CHLOR 0.9% 250 ML INJ 250 ML ONE (07:03)
[2017-03-21] MEDS ORDERED: ISOPROTERENOL HCL 1 MG/5 ML AMP ONE (07:03)
[2017-03-21 07:06] LABS: AUTOMATED NEUTROPHIL # 6.8 TH/MM3 (1.8-7.7); BASOPHIL % 0.4 % (0.0-2.0); EOSINOPHIL % 0.6 % (0.0-4.0); HEMATOCRIT 39.9 % (39.0-51.0); HEMOGLOBIN 13.1 GM/DL (13.0-17.0); LYMPH % 12.7 % (9.0-44.0); LYMPHOCYTE # 1.1 TH/MM3 (1.0-4.8); MEAN CELL VOLUME 93.8 FL (80.0-100.0); MEAN CORPUSCULAR HEMOGLOBIN 30.7 PG (27.0-34.0); MEAN CORPUSCULAR HGB CONC 32.7 % (32.0-36.0); MEAN PLATELET VOLUME 7.4 FL (7.0-11.0); MONO % 9.1 % (0.0-8.0); MONOCYTE # 0.8 TH/MM3 (0-0.9); NEUT % 77.2 % (16.0-70.0); PLATELET COUNT 207 TH/MM3 (150-450); RED BLOOD COUNT 4.25 MIL/MM3 (4.50-5.90); RED CELL DISTRIBUTION WIDTH 15.1 % (11.6-17.2); WHITE BLOOD COUNT 8.7 TH/MM3 (4.0-11.0)
[2017-03-21] MEDS ORDERED: CARD360C PO (07:12)
[2017-03-21] MEDS ORDERED: LEVE500 PO (07:12)
[2017-03-21] MEDS ORDERED: MULTTAB67 PO (07:13)
[2017-03-21] MEDS ORDERED: AMIO200T PO (07:13)
[2017-03-21 07:26] LABS: BICARBONATE 29.7 MEQ/L (21.0-32.0); CREATININE 1.79 MG/DL (0.60-1.30)
[2017-03-21] MEDS ORDERED: LEVOFLOXACIN 500 MG PREMIX INJ 100 ML IV ONE (07:38)
[2017-03-21 08:17] LABS: INTERNATIONAL NORMALIZED RATIO 1.2 RATIO; PROTHROMBIN TIME - PATIENT 12.3 SEC (9.8-11.6)
[2017-03-21] MEDS ORDERED: PROTAMINE SULFATE 50 MG/5 ML VIAL ONE ×2 (09:24→09:42)
[2017-03-21] MEDS ORDERED: FUROSEMIDE 40 MG/4 ML VIAL ONE (09:24)
[2017-03-21] MEDS ORDERED: BACITRACIN OINT 0.9 GM PKT TOP ONE (09:45)
[2017-03-21] MEDS ORDERED: ATROPINE SULFATE 1 MG/ML VIAL IV PUSH PRN (09:45)
[2017-03-21] MEDS ORDERED: LORazepam 2 MG/ML VIAL IV PUSH PRN (09:45)
[2017-03-21] MEDS ORDERED: SODIUM CHLOR 0.9% 250 ML INJ 250 ML IV PRN (09:45)
[2017-03-21] MEDS ORDERED: ONDANSETRON HCL 4 MG/2 ML VIAL IV PUSH PRN (09:45)
[2017-03-21] MEDS ORDERED: LIDOCAINE HCL 1% 50 ML VIAL INFIL PRN (09:45)
[2017-03-21] MEDS ORDERED: METOCLOPRAMIDE HCL 10 MG/2 ML VIAL IV PUSH PRN (09:45)
[2017-03-21] MEDS ORDERED: oxyCODONE/ACETAMINOPHEN 5 MG/325 MG TAB PO PRN ×2 (09:45)
--- NOTE | 2017-03-21 09:48 | CATHPROC ---
[employer] HIS Report Study Information Study Number Admission Scheduled Start Study Start [id number] Mar 21 2017 5:56AM 03/21/2017 Mar 21 2017 7:18AM [place] Service Electrophysiology Study Admit Source Facility Department Other [facility] - Online [employer] Specialist Physician and Clinical Staff Initial Leonel Umanzor Manager Home Kendell Walker,RT(R) Manager Home Elvia Sheppard,RT(R) TECH2 Other Anesthesia, OFFICE ADMINISTRATION INSTRUCTOR Recorder Eliza Garza,KOTA Scrub Dorie Astorga,LAND DEPARTMENT HEAD TECH2 Procedures Performed Procedure Location (Site) Vessel Name Ablation Procedure ICE CATHETER INSERT RA Atruim RF Ablation LT. ATRIUM LT. [facility] Equipment Time Manager Client Service Description Size Mfg Part Number Used/Scraped NEEDLE, TRANSSEPTAL NRG 98 [id number] 07:37 [employer] Used C1 *[id number] [employer]/ EP [id number] 07:37 KIT, TRANSDUCER / AFIB Used PACER *[id number]- CATHETER, TACTICATH ABLAT BUNDLE 07:37 BUNDLE-[facility] Used 65 BUNDLE *[id number] BUNDLE [id number] CATHETER, FR7 OPTIMA SPIRAL 07:37 BUND[facility] FR7 *[id number]- Used BUNDLE BUNDLE [id number] 07:37 BUNDLE-[facility] CATHETER, JSN, QUAD BUNDLE FR 5 *[id number]- Used BUNDLE [id number] 07:37 BUNDLE-[facility] CATHETER, JSN, QUAD BUNDLE FR 5 *[id number]- Used BUNDLE [id number] SET, COOL POINT TUBING 07:37 BUNDLE-[facility] *[id number]- Used BUNDLE BUNDLE SHEATH, FR8.5 STEERABLE SM 07:37 BUNDLE-[facility] 71CM [id number] Used 71CM BUNDLE COVER, TRANSDUCER CABLE 612-113 07:37 [employer] Used ACUNAV *[id number] 07:37 CORDIS/PACER SHEATH, FR10 DESIRE 11CM FR 10 Used *[id number] 07:37 CORDIS/PACER SHEATH, FR9 DESIRE 11CM FR 9 [id number] Used [id number] 07:37 MED[employer] IND[employer] PACK, CCL CUSTOM * Used *[id number] 07:37 MEDLINE PACER DENNY, LIMB * 2530 *[id number] Used [id number] 07:37 [facility] MEDICAL SHEATH, FR4.5 PRELUDE 11CM FR 4.5 Used [id number] 07:37 NAMIC TUBING, HIGH PRESSURE 48" 48" Used *[id number] 07:37 NAMIC TUBING, HIGH PRESSURE 48" 48" Used *[id number] 07:37 [place] MEDICAL BLANKET,WARM AIR CCL * Used *[id number] 07:37 [facility] MEDICAL ELECTRODE KIT, [place] X SURFACE * Used *[id number] 07:37 [facility] MEDICAL SHEATH, EPS, FR6 FAST CATH FR 6 Used *[id number] 07:37 [facility] MEDICAL SHEATH, EPS, FR7 FAST CATH FR 7 [id number] Used [id number] 07:37 [facility] MEDICAL SHEATH, EPS, FR8 FAST CATH FR 8 Used *[id number] CATHETER, ACUNAV FR10 ICE [id number] 08:35 YADIEL FR 10 Used (YADIEL) *[id number] [facility] PAD, ELECTROSURGICAL 07:37 * [id number] *[id number] Used SURGICAL GROUNDING (BLUE) History: Allergies Allergy Reaction No Known Allergies History: Risk Factors Hypertension Yes Prior PCI Yes Diabetes Yes Labs Hgb (g/dl) Hct (%) RBC (MIL/MM3) WBC (l/cumm) Platelets (thousands) 11.60-17.00 35.00-51.00 4.00-5.90 4.00-11.00 150.00-450.00 13.0 39 4.2 8.7 207 Glucose (mg/dl) BUN (mg/dl) Creatinine (mg/dl) BUN:Creatinine (1:x) 74.00-106.00 7.00-18.00 0.50-1.30 10.00-20.00 192 32 1.8 17.8 Na (meq/l) K (meq/l) 136.00-145.00 3.50-5.10 140 4.3 INR (PTT:PT) 0.90-1.10 1.2 Medication Medication Total Dose (Bolus/Oral) Medication Total Dosage/Unit 1% XYLOCAINE 40 mL HEPARIN 55166 units LASIX 40 mg PROTAMINE 60 mg Medications (Bolus/Oral) Medication Time Given Dosage/Unit Administered By Reason 1% XYLOCAINE 03/21/2017 8:23:10 AM 20 mL Leonel Myrick 20 mL 1% XYLOCAINE given in lab by Leonel Myrick in Left Groin via Subcutaneous. 1% XYLOCAINE 03/21/2017 8:29:00 AM 20 mL Leonel Myrick 20 mL 1% XYLOCAINE given in lab by Leonel Myrick in Right Groin via Subcutaneous. HEPARIN 03/21/2017 8:37:10 AM 39584 units Anesthesia, OFFICE ADMINISTRATION INSTRUCTOR As per physicians ve rbal order 48057 units HEPARIN given in lab by Anesthesia, OFFICE ADMINISTRATION INSTRUCTOR via Peripheral IV. Ordered by Leonel Myrick. Michelle son: As per physicians verbal order. HEPARIN 03/21/2017 8:51:05 AM 3000 units Anesthesia, OFFICE ADMINISTRATION INSTRUCTOR As per physicians ve rbal order 3000 units HEPARIN given in lab by Anesthesia, OFFICE ADMINISTRATION INSTRUCTOR via Peripheral IV. Ordered by Leonel Myrick. Reas on: As per physicians verbal order. HEPARIN 03/21/2017 9:07:42 AM 3000 units Anesthesia, OFFICE ADMINISTRATION INSTRUCTOR As per physicians ve rbal order 3000 units HEPARIN given in lab by Anesthesia, OFFICE ADMINISTRATION INSTRUCTOR via Peripheral IV. Ordered by Leonel Myrick. Reas on: As per physicians verbal order. LASIX 03/21/2017 9:25:05 AM 40 mg Anesthesia, OFFICE ADMINISTRATION INSTRUCTOR As per physicians verbal order 40 mg LASIX given in lab by Anesthesia, OFFICE ADMINISTRATION INSTRUCTOR via Peripheral IV. Ordered by Leonel Myrick. Reason: As per physicians verbal order. PROTAMINE 03/21/2017 9:31:10 AM 40 mg Anesthesia, OFFICE ADMINISTRATION INSTRUCTOR As per physicians verb al order 40 mg PROTAMINE given in lab by Anesthesia, OFFICE ADMINISTRATION INSTRUCTOR via Peripheral IV. Ordered by Leonel Myrick. Reason: As per physicians verbal order. PROTAMINE 03/21/2017 9:42:19 AM 20 mg Anesthesia, OFFICE ADMINISTRATION INSTRUCTOR As per physicians verb al order 20 mg PROTAMINE given in lab by Anesthesia, OFFICE ADMINISTRATION INSTRUCTOR. Ordered by Leonel Myrick. Reason: As per physicians verbal order. Medication (Drip) Medication Time Given Dosage/Unit Concentration/Unit Diluent (ml) Solution HEPARIN DRIP 03/21/2017 8:59:54 AM 1000 units/hr 41650 units 250 D5W 1000 units/hr HEPARIN DRIP given in lab by Anesthesia, OFFICE ADMINISTRATION INSTRUCTOR via Peripheral IV. Pump/Drip Flow = 10 ml /hr using D5[place] [address] units in 250 ml. Ordered by Leonel Myrick. Reason: As per physicians verbal order. ISUPREL 03/21/2017 9:13:30 AM 10 mcg/min 1 mg 250 NaCl .9 10 mcg/min ISUPREL given in lab by Anesthesia, OFFICE ADMINISTRATION INSTRUCTOR via Peripheral IV. Pump/Drip Flow = 150 ml/hr usi ng NaCl .9 with a concentration of 1 mg in 250 ml. Ordered by Leonel Myrick. Reason: As per physicians verbal order. LEVAQUIN 03/21/2017 8:03:19 AM 100 mL/hr 500 100 NaCl .9 100 mL/hr LEVAQUIN given in lab by Anesthesia, OFFICE ADMINISTRATION INSTRUCTOR via Peripheral IV. Pump/Drip Flow = 0 ml/hr using NaCl .9 with a concentration of 500 in 100 ml. Ordered by Leonel Myrick. Reason: As per physicians verbal order. Initial Case Assessment Cardiovascular HR Rhythm NIBP Chest Pain 115 af 118/82 0 Edema Present Skin color Skin Moderate Normal Warm Circulatory - Right Pulses Dorsalis Pedis 1 Scale (0,1,2,3,4,d) Circulatory - Left Pulses Dorsalis Pedis 1 Scale (0,1,2,3,4,d) Circulatory - Lower Extremities Color Lower Right Color Lower Left Normal Normal Neurological State Oriented to time-place- Alert Moves all extremities person Respiration - General Respiration Rate SpO2 (%) (B/min) 21 92 Final Case Assessment Cardiovascular HR Rhythm NIBP Chest Pain 73 sr 93/50 0 Edema Present Skin color Skin Moderate Normal Warm Dry Circulatory - Right Pulses Dorsalis Pedis 1 Scale (0,1,2,3,4,d) Circulatory - Left Pulses Dorsalis Pedis 1 Scale (0,1,2,3,4,d) Circulatory - Lower Extremities Color Lower Right Color Lower Left Normal Normal Neurological State Lethargic Moves all extremities Respiration - General Respiration Rate SpO2 (%) (B/min) 14 96 Chronological Log Time Study Chronological Log 7:17:56 Patient arrived via Bed. 7:17:57 Patient Name, D.O.B, / Armband Verified By R.N. 7:17:57 Consent signed by the physician and the patient and verified by the Online Communications Specialist staff. 7:17:58 Pre-op and post- op instructions given; patient acknowledges understanding of instructions. 7:18:00 Verbal Stimulation=2 Physical Stimulation=2 Airway=2 Respiration=2 TOTAL=8. (0=absent, 1=li mited, 2=present) 7:18:02 Anesthesia at bedside. Assumes care of patient. 7:18:12 Patient has been NPO for More than 6Hrs. 7:18:13 Skin Breakdown- Bruise L forearm, R anterior ankle w scab, right groin w skin tear noted. 7:18:50 Patient Warmer Placed on the Table. 7:19:51 Disposable Defibrillator Pads Placed On Patient. 7:19:52 Марина Prominences Protected 7:19:53 A # 22 IV was noted in the Antecubital (right). Grade = 0 0.9ns kvo 7:20:09 A # 20 IV was noted in the Forearm (left). Grade = 0 0.9ns kvo 7:20:58 History and physical on the chart. 7:25:58 Table restraints applied according to hospital policy Assessment: Initial Case, LW=496 BPM, Rhythm=af, ICCG=569/82 mmhg, Chest Pain=0, Edema=Mod, [place] r=Normal, Skin = Warm Right Pulses: Shamar Ped=1 Left Pulses: Shamar Ped=1 7:30:20 Lower Right Extremities: Color=Normal Lower Left Extremities: Color=Normal Neurological: State=Alert, Ox3, MICHEL Respiration: Resp=21 B/min, SpO2=92 % 7:44:02 Coag redrawn peripherally. 7:48:35 St Jennifer rep present. Device tachy therapy disabled. 7:57:36 Anesthesiologist present for intubation 8:00:57 14 Fr mancilla inserted w/o difficulty by SH. Clear yellow urine obtained. 100 mL/hr LEVAQUIN given in lab by Anesthesia, OFFICE ADMINISTRATION INSTRUCTOR via Peripheral IV. Pump/Drip Flow = 0 ml/hr using NaCl .9 with 8:03:19 a concentration of 500 in 100 ml. Ordered by Leonel Myrick. Reason: As per physicians verbal ord er. 8:04:17 Bilateral groins prepped with 2% chlorhexidine, and draped after a 3 minute waiting time. 8:06:35 Reference ECG taken 8:07:37 MD paged 8:15:55 MD arrived. Time Out. Correct patient, procedure, procedure equipment, site and side verified with physician present. Time 8:18:00 concurred by MD, individual staff and OFFICE ADMINISTRATION INSTRUCTOR. Time Out #2 - Consents verified, patient in correct position, all results are labled and display ed, safety precautions 8:18:44 taken, antibiotics administered. Time out concurred by MD, individual staff and OFFICE ADMINISTRATION INSTRUCTOR in procedur e 8:18:54 Case Start 8:19:21 Neftaly in progress. 8:22:22 Neftaly complete. 8:23:10 20 mL 1% XYLOCAINE given in lab by Leonel Myrick in Left Groin via Subcutaneous. 8:23:42 Vascular access was obtained in the Fem Vein (left). 8:23:50 Vascular access was obtained in the Fem Vein (left). 8:24:01 Vascular access was obtained in the Fem Vein (left). 8:24:12 Vascular access was obtained in the Fem Art (left). A SHEATH, FR4.5 PRELUDE 11CM FR 4.5 was advanced into the Fem Art (left) using the Modified Seld jonh technique. 8:24:32 0.9ns pressure bag connected. 8:25:58 A SHEATH, EPS, FR6 FAST CATH FR 6 was advanced into the Fem Vein (left) using the Modified S eldinger technique. 8:26:10 A SHEATH, EPS, FR7 FAST CATH FR 7 was advanced into the Fem Vein (left) using the Modified S eldinger technique. 8:28:24 A SHEATH, FR10 DESIRE 11CM FR 10 was advanced into the Fem Vein (left) using the Modified Se steiner technique. 8:29:00 20 mL 1% XYLOCAINE given in lab by Leonel Myrick in Right Groin via Subcutaneous. 8:29:41 Vascular access was obtained in the Fem Vein (right). 8:29:44 A SHEATH, EPS, FR8 FAST CATH FR 8 was advanced into the Fem Vein (right) using the Modified Seldinger technique. 8:30:40 Endotracheal temp probe 36.6 A SHEATH, FR8.5 STEERABLE SM 71CM BUNDLE 71CM was exchanged in the Fem Vein (right). This was ne cessary in 8:31:01 order for catheter support. 8:32:41 CATHETER, ACUNAV FR10 ICE (YADIEL) FR 10 Was Postioned. A CATHETER, JSN, QUAD BUNDLE FR 5 was advanced vis Fem Vein (left) and placed in the CS. Placeme nt was visually 8:33:00 confirmed under fluoroscopy. A CATHETER, JSN, QUAD BUNDLE FR 5 was advanced vis Fem Vein (left) and placed in the HIS. Placem ent was 8:33:48 visually confirmed under fluoroscopy. 54741 units HEPARIN given in lab by Anesthesia, OFFICE ADMINISTRATION INSTRUCTOR via Peripheral IV. Ordered by Leonel Myrick . Reason: As per 8:37:10 physicians verbal order. 8:38:51 Sargents in 8:42:58 A eps was advanced to the right atrium and passed through the septal wall to the left atrium . 8:43:18 Sargents out 8:45:36 Activated Clotting Time Drawn A CATHETER, FR7 OPTIMA SPIRAL BUNDLE FR7 was advanced vis Fem Vein (right) and placed in the LA. Placement 8:45:57 was visually confirmed under fluoroscopy. Mapping in progress. 8:50:40 ACT (Normal Range 90-180) = 319 3000 units HEPARIN given in lab by Anesthesia, OFFICE ADMINISTRATION INSTRUCTOR via Peripheral IV. Ordered by Leonel Myrick. Reason: As per 8:51:05 physicians verbal order. 8:54:53 Mapping complete. Catheter was removed A CATHETER, TACTICATH ABLAT 65 BUNDLE was advanced vis Fem Vein (right) and placed in the LA. Pl acement was 8:55:09 visually confirmed under fluoroscopy. 8:56:00 RF Ablation of the LT. ATRIUM with a CATHETER, TACTICATH ABLAT 65 BUNDLE. 1000 units/hr HEPARIN DRIP given in lab by Anesthesia, OFFICE ADMINISTRATION INSTRUCTOR via Peripheral IV. Pump/Drip Flow = 10 ml/hr using 8:59:54 D5[place] [address] units in 250 ml. Ordered by Leonel Myrick. Reason: As per phys icians verbal order. 8:59:59 Activated Clotting Time Drawn 9:06:57 ACT (Normal Range 90-180) = 312 3000 units HEPARIN given in lab by Anesthesia, OFFICE ADMINISTRATION INSTRUCTOR via Peripheral IV. Ordered by Leonel Myrick. Reason: As per 9:07:42 physicians verbal order. 9:13:00 Ablation complete. 10 mcg/min ISUPREL given in lab by Anesthesia, OFFICE ADMINISTRATION INSTRUCTOR via Peripheral IV. Pump/Drip Flow = 150 ml/h r using NaCl .9 9:13:30 with a concentration of 1 mg in 250 ml. Ordered by Leonel Myrick. Reason: As per physicians verb al order. 9:15:48 Isuprel off 9:19:18 Ablation Catheter was removed A SHEATH, FR9 DESIRE 11CM FR 9 was exchanged in the Fem Vein (right). This was necessary in orde r to minimize 9:20:13 site leakage. 9:25:04 All Catheter(s) removed without difficulty 40 mg LASIX given in lab by Anesthesia, OFFICE ADMINISTRATION INSTRUCTOR via Peripheral IV. Ordered by Leonel Myrick. Reason : As per physicians 9:25:05 verbal order. 9:25:11 Sheath(s) left in place, secured, 0.9ns kvo connected, and will be removed in Holding Area 9:27:34 Sterile dressing applied to sites 9:30:51 End of case Body Temp 36. 40 mg PROTAMINE given in lab by Anesthesia, OFFICE ADMINISTRATION INSTRUCTOR via Peripheral IV. Ordered by Leonel Myrick. Re ason: As per 9:31:10 physicians verbal order. 9:33:59 Pt extubated Assessment: Final Case, HR=73 BPM, Rhythm=sr, NIBP=93/50 mmhg, Chest Pain=0, Edema=Mod, Color=No rmal, Skin = Warm, Dry Right Pulses: Shamar Ped=1 Left Pulses: Shamar Ped=1 9:34:12 Lower Right Extremities: Color=Normal Lower Left Extremities: Color=Normal Neurological: State=Lethargic, MICHEL Respiration: Resp=14 B/min, SpO2=96 % 9:35:02 Case End 9:35:04 No case complications noted. 9:35:05 Cine recording checked. 9:35:12 Ablation procedure performed: AFIB. 9:35:18 EP Procedure was performed. 9:35:33 PACU called. Spoke to Elvia. 9:35:58 Bedside Report will be given. 9:36:09 Defibrillator and ground pads removed. Skin intact. 9:38:07 Activated Clotting Time Drawn 9:42:10 ACT (Normal Range 90-180) = 235 20 mg PROTAMINE given in lab by Anesthesia, OFFICE ADMINISTRATION INSTRUCTOR. Ordered by Leonel Myrick. Reason: As per phy sicians verbal 9:42:19 order. 9:43:50 Defibrillator and ground pads removed. Skin intact. 9:45:10 Patient moved to stretcher End Study - Contrast Media Used In Study Contrast Total Opened (mL) Total Used (mL) Total Wasted (mL) Unspecified 0 0 0 End Study - Maximum Contrast Load Max Contrast Load (mL) 271.7 End Study - Radiation Exposure Fluoro Time (minutes) 3.6 End Study - Patient Disposition Complications Transferred To Interventional Outcome No Telemetry Bed successful
[2017-03-21] MEDS ORDERED: DO NOT ADM ANY ANTICOAGULANT DRUGS PRN (09:50)
[2017-03-21] MEDS: LISINOPRIL 10 MG TAB PO SCH ×2 (10:00→15:55)
[2017-03-21] MEDS ORDERED: AMIODARONE 200 MG TAB PO SCH (10:00)
--- NOTE | 2017-03-21 10:06 | PD.CARD ---
Atrial Fibrillation Ablation PROCEDURE DATE: Mar 21, 2017 PROCEDURES PERFORMED: 1. Electrophysiology study on Isuprel infusion 2. CS cannulation 3. 3-D mapping 4. Transseptal approach 5. Right and left heart catheterization 6. Intracardiac echo 7. Radiofrequency ablation of atrial fibrillation 8. Pulmonary vein isolation 9. Posterior wall ablation 10. Mitral valve isolation 11. Mitral line creation 12. Left atrial tachycardia ablation 13. Roof line creation 14. Floor line creation 15. Anterior wall ablation INDICATIONS FOR THE PROCEDURE Mr. Bolton is a 76-year-old male with atrial fibrillation, very symptomatic, multiple hospitalizations, admitted for electrophysiology study and ablation. The risks, the nature and the benefits of the procedure were clearly stated to him. The risks include pneumothorax, cardiac perforation, stroke, need for open heart surgery and even . The patient understood and agreed to proceed. DESCRIPTION OF THE PROCEDURE IN DETAIL As written informed consent was obtained prior to esophageal echocardiogram, the patient was kept on the table where he was prepped and draped in the usual sterile fashion. Conscious sedation was initiated and maintained throughout the procedure by the anesthesiologist. Once sedation was verified, the right and left inguinal areas were anesthetized with 2% Xylocaine. Using modified Seldinger technique, the left femoral vein was cannulated on three occasions, three guidewires were advanced. Over the wire a 6, 7 and a 10-Wallisian Hemaquet were advanced. Then the left femoral artery was cannulated on one occasion, one guidewire was advanced. Over the wire a 4-Wallisian Hemaquet was advanced. Then the right femoral vein was cannulated on one occasion, one guidewire was advanced. Over the wire a 8-Wallisian Hemaquet was advanced. Then under fluoroscopic guidance through the 6 and 7-Wallisian Hemaquet, two 5-Wallisian Mohit curved quadripolar electrophysiology catheters were advanced and placed around the His as well as coronary sinus. Basic interval was measured. The patient was in atrial fibrillation/left atrial tachycardia. Through the 10- Wallisian Hemaquet, a Cordis Jennings AcuNav intracardiac echo catheter was advanced and placed at the right atrium. Multiple view was obtained. There is pericardial effusion, pulmonary vein was seen, atrial septal was visualized. Then the 8-Wallisian Hemaquet in the right femoral vein was exchanged for Agilis transseptal sheath that was placed all the way to the superior vena cava. Through the sheath a Vania needle was advanced, then the sheath, the dilator and the needle were progressed until foci engaged. Once engaged, the needle was advanced. RF was delivered for 2 seconds. I was able to cross into the left atrium. Once the needle crossed, the dilator was advanced. Once the dilator crossed, the sheath was advanced. Once the sheath crossed, the dilator and the needle were removed. At this point I did flood the system and fluid movement was seen in the left atrium the indicates the sheath is in good position. The patient already received 10,000 units of heparin. The goal is to keep an ACT around 350 during ablation. Then through the sheath a [facility]. [facility] Miguel 20 pulse circumferential catheter was advanced. Using Coull endocardial solution mapping system, a two-dimensional configuration of the left atrium was obtained. Points were taken at the left superior and inferior veins, right superior and inferior veins, mitral valve, and appendages. Then through the sheath a [facility]. José Miguel TactiCath 65cm 3.5mm irrigated tipped mapping and radiofrequency ablation catheter was advanced. Esophageal probe was placed temperature monitoring during ablation. When it increased to 0.5 degrees Celsius above baseline, I moved to a different area of the atrium. First I did isolate the left superior vein. There was no signal at the left inferior vein. Posterior was ablated. Then a roof line was created, a floor line was created, a mitral line was isolated. At that point the patient was in left atrial tachycardia. I did create a line from the floor to the roof area, passing by the left atrial appendage. Then the right superior and inferior veins were isolated. I did remap the atrium. Early activation was at the anterior floor. Ablation performed, tachycardia cycle length prolonged. Then patient converted into sinus rhythm. Atrial pacing protocol was performed. No tachycardia was induced. There is no significant signal in the atrium. At that point I did advance the circumferential catheter again into the vein. There was no signal into the vein, pacing from the vein showed no conduction to the atrium. Isuprel infusion was initiated at 10 mcg for over minutes. No tachyarrhythmia was induced, post Isuprel no tachyarrhythmia was induced. At that point the procedure was complete. All catheters were removed, atrial septal sheath was exchanged for 9-Wallisian Hemaquet, intracardiac echo showed no pericardial effusion. There is still good flow in the pulmonary vein. The patient is going to be transferred to the recovery room. No incident report. The patient tolerated the procedure. Blood loss was minimal. FINDINGS 1. Electrocardiogram: At baseline the patient was in atrial fibrillation, post procedure the patient was in sinus rhythm. 2. Basic interval: Base cycle length was around 480ms. Post ablation she was around 1100 milliseconds. AH at 120 and HV at 46 milliseconds. 3. Tachyarrhythmia: Atrial fibrillation was mapped and ablated. Atrial tachycardia was ablated. The ablation was successful. CONCLUSION Successful electrophysiology study, mapping, radiofrequency ablation of atrial fibrillation, left atrial tachycardia, pulmonary vein isolation, posterior ablation, mitral valve isolation, mitral line creation, roof line creation, floor line creation, left atrial tachycardia. COMMENTS AND RECOMMENDATIONS The patient is going to be transferred to the telemetry unit. Will be observed and when stable can be discharged home. Leonel Myrick MD Mar 21, 2017 10:06
[2017-03-21] MEDS: levETIRAcetam 500 MG TAB PO SCH ×2 (11:25→21:16)
[2017-03-21] MEDS ORDERED: ROCURONIUM INJ 50 MG/5 ML SYRINGE IV PUSH ONE (12:00)
[2017-03-21] MEDS ORDERED: NEOSTIGMINE 5 MG/5 ML SYRINGE IV PUSH ONE (12:00)
[2017-03-21] MEDS ORDERED: PHENYLEPH/NS 1000 MCG/10 ML SYR IV ONE (12:00)
[2017-03-21] MEDS ORDERED: GLYCOPYRROLATE 1 MG/5 ML SYRINGE IV PUSH ONE (12:00)
[2017-03-21] MEDS ORDERED: PROPOFOL 200 MG/20 ML AMP IV ONE (12:00)
[2017-03-21] MEDS ORDERED: ePHEDrine/NS 25 MG/5 ML SYRINGE IV ONE (12:00)
[2017-03-21] MEDS ORDERED: DEXAMETHASONE SOD PHOS 4 MG/ML VIAL IV ONE (12:00)
[2017-03-21] MEDS ORDERED: LIDOCAINE HCL 1% PF 5 ML SYRINGE OTHER ONE (12:00)
[2017-03-21] MEDS ORDERED: ONDANSETRON HCL 4 MG/2 ML VIAL IV ONE (12:00)
[2017-03-21] MEDS: PANTOPRAZOLE SOD 20 MG DELAYED RELEASE TAB PO SCH (15:44)
[2017-03-21] MEDS: AMIODARONE 200 MG TAB PO SCH (15:45)
[2017-03-21] MEDS: POTASSIUM CHLORIDE 20 MEQ CONTROLLED RELEASE TAB PO SCH ×2 (15:45→21:15)
[2017-03-21] MEDS: glipiZIDE 5 MG TAB PO SCH (15:45)
[2017-03-21] MEDS ORDERED: RIVAROXABAN 20 MG TAB PO SCH (21:00)
[2017-03-21] MEDS ORDERED: ATORVASTATIN 80 MG TAB PO SCH (21:00)
--- NOTE | 2017-03-21 21:12 | EKG ---
Date Performed: 03/21/2017 Time Performed: 10:40:17 PTAGE: 76 years EKG: Sinus rhythm RIGHT BUNDLE BRANCH BLOCK LEFT ANTERIOR FASCICULAR BLOCK MODERATE T-WAVE ABNORMALITY, CONSIDER LATER AL ISCHEMIA MODERATE T-WAVE ABNORMALITY, CONSIDER INFERIOR ISCHEMIA ABNORMAL ECG PREVIOUS TRACING : 03/21/2017 07.00 Compared to prior tracing no significant change DOCTOR: Percy Rick Interpretating Date/Time 03/21/2017 21:11:19
[2017-03-21] MEDS: TORSEMIDE 20 MG TAB PO SCH (21:15)
--- NOTE | 2017-03-21 21:41 | EKG ---
Date Performed: 03/21/2017 Time Performed: 07:00:50 PTAGE: 76 years EKG: Sinus tachycardia RBBB with left anterior fascicular block Inferior infarct - age undetermi abbie Lateral ST-T changes may be due to myocardial ischemia Abnormal ECG PREVIOUS TRACING : 03/11/2017 12.18 Compared to prior tracing no significant change DOCTOR: Percy Rikc Interpretating Date/Time 03/21/2017 21:39:10
[2017-03-22] VITALS (13 sets, daily range): BP systolic 103–127; BP diastolic 64–84; PULSE 71–90; RESP 14–22; TEMP 97.1–97.4; O2SAT 95–97
[2017-03-22 07:14] LABS: INTERNATIONAL NORMALIZED RATIO 1.6 RATIO; PROTHROMBIN TIME - PATIENT 15.9 SEC (9.8-11.6)
[2017-03-22] MEDS ORDERED: METOPROLOL SUCCINATE 50 MG EXTENDED RELEASE TAB PO SCH (09:00)
[2017-03-22] MEDS ORDERED: MULTIVITAMIN TAB PO SCH (09:00)
[2017-03-22] MEDS: levETIRAcetam 500 MG TAB PO SCH (10:39)
[2017-03-22] MEDS: LISINOPRIL 10 MG TAB PO SCH (10:40)
[2017-03-22] MEDS: AMIODARONE 200 MG TAB PO SCH (10:40)
[2017-03-22] MEDS: TORSEMIDE 20 MG TAB PO SCH (10:40)
[2017-03-22] MEDS: PANTOPRAZOLE SOD 20 MG DELAYED RELEASE TAB PO SCH (10:41)
[2017-03-22] MEDS: glipiZIDE 5 MG TAB PO SCH (10:41)
[2017-03-22] MEDS: POTASSIUM CHLORIDE 20 MEQ CONTROLLED RELEASE TAB PO SCH (10:41)
--- NOTE | 2017-03-22 12:01 | PD.CARD.PN ---
Subjective Subjective Remarks no CV complaints Objective Medications Current Medications Medications (Trade) Dose Ordered Sig/Jaz Route Start Time Stop Time Status Last Admin Sodium Chloride 500 ml @ 30 mls/hr [id number] IV 03/21/17 06:30 (Ativan) 1 mg ASSISTANT CONTROLLER SL 03/21/17 06:30 03/24/17 06:29 Lactated Ringer's 1,000 ml @ 30 mls/hr Q24H PRN IV 03/21/17 06:30 03/24/17 06:29 Sodium Chloride 500 ml @ 30 mls/hr [id number] PRN IV 03/21/17 06:30 03/24/17 06:29 (Lopressor) 25 mg ASSISTANT CONTROLLER PRN PO 03/21/17 06:30 03/24/17 06:29 (Betadine 5% Antisepsis Kit) 1 applic ASSISTANT CONTROLLER PRN EACH NARE 03/21/17 06:30 03/24/17 06:29 (Chlorhexidine 2% Cloth) 3 pack ASSISTANT CONTROLLER PRN TOPICAL 03/21/17 06:30 03/24/17 06:29 (Percocet 5-325 Mg) 1 tab Q4H PRN PO 03/21/17 09:45 (Percocet 5-325 Mg) 2 tab Q4H PRN PO 03/21/17 09:45 (Atropine Inj) 0.5 mg UNSCH PRN IV PUSH 03/21/17 09:45 (Reglan Inj) 10 mg Q4H PRN IV PUSH 03/21/17 09:45 (Zofran Inj) 4 mg Q4H PRN IV PUSH 03/21/17 09:45 (Lipitor) 80 mg HS PO 03/21/17 21:00 03/21/17 21:16 (Glucotrol) 5 mg DAILY PO 03/21/17 14:00 03/22/17 10:41 (Keppra) 500 mg BID PO 03/21/17 10:00 03/22/17 10:39 (Prinivil) 10 mg DAILY PO 03/21/17 10:00 03/22/17 10:40 (KCl) 20 meq Q12HR PO 03/21/17 10:30 03/22/17 10:41 (Xarelto) 20 mg HS PO 03/21/17 21:00 03/21/17 21:16 (Demadex) 20 mg BID PO 03/21/17 21:00 03/22/17 10:40 (Toprol Xl) 200 mg DAILY PO 03/22/17 09:00 03/22/17 10:41 (Theragran) 1 tab DAILY PO 03/22/17 09:00 03/22/17 10:39 (Protonix) 20 mg DAILY PO 03/21/17 11:00 03/22/17 10:41 (Cordarone) 200 mg DAILY PO 03/21/17 12:00 03/22/17 10:40 Vital Signs / I&O Vital Signs Date Time Temp Pulse Resp B/P (MAP) Pulse Ox O2 Delivery O2 Flow Rate FiO2 03/22/17 10:00 89 03/22/17 09:00 89 03/22/17 08:00 77 03/22/17 07:15 97.4 71 20 110/84 (93) 95 03/22/17 06:00 72 03/22/17 05:00 74 03/22/17 04:00 84 03/22/17 03:00 82 03/22/17 03:00 97.1 82 22 127/82 (97) 96 03/22/17 02:00 90 03/22/17 01:00 82 03/22/17 00:00 84 03/21/17 23:00 85 03/21/17 23:00 97.8 85 22 137/76 (96) 99 03/21/17 22:00 84 03/21/17 21:00 86 03/21/17 20:00 97.2 89 24 123/77 (92) 95 03/21/17 20:00 76 03/21/17 19:00 87 03/21/17 15:00 98.5 91 18 136/84 (101) 95 I/O 03/21/17 03/21/17 03/21/17 03/22/17 03/22/17 03/22/17 07:00 15:00 23:00 07:00 15:00 23:00 Intake Total 740 ml 480 ml 960 ml Output Total 385 ml 350 ml 50 ml Balance 355 ml 130 ml 910 ml Intake Oral 480 ml 960 ml IV Total 40 ml Other 700 ml Output Urine Total 375 ml 350 ml 50 ml Estimated Blood Loss 10 ml # Voids 6 # Bowel Movements 0 Physical Exam GENERAL: Well-nourished, well-developed patient. SKIN: Warm and dry. HEAD: Normocephalic. EYES: No scleral icterus. No injection or drainage. NECK: Supple, trachea midline. No JVD or lymphadenopathy. CARDIOVASCULAR: Regular rate and rhythm without murmurs, gallops, or rubs. RESPIRATORY: Breath sounds equal bilaterally. No accessory muscle use. GASTROINTESTINAL: Abdomen soft, non-tender, nondistended. EXTREMITIES: No cyanosis, or edema. NEUROLOGICAL: Awake, alert, and oriented x 3. Non-focal. Laboratory Laboratory Tests Test 03/22/17 06:31 Prothrombin Time 15.9 SEC Prothromb Time International Ratio 1.6 RATIO Activated Partial Thromboplast Time 31.0 SEC Assessment and Plan Problem List: (1) Afib ICD Codes: I48.91 - Unspecified atrial fibrillation Status: Chronic Plan: stable d/c home today Problem Qualifiers (1) Afib: Qualified Codes: I48.2 - Chronic atrial fibrillation Rodney Sweet MD Mar 22, 2017 12:01
--- NOTE | 2017-03-22 12:51 | EKG ---
Date Performed: 03/22/2017 Time Performed: 05:44:18 PTAGE: 76 years EKG: Sinus rhythm with P-waves somewhat difficult to see in the limb leads Right bundle branch block Left axis deviato n Diffuse nonspecific ST-T change Abnormal ECG PREVIOUS TRACING 03/31/17 Compared to prior tracing no significant change DOCTOR: Aram Huerta Interpretating Date/Time 03/22/2017 12:50:39
== END 2017-03-22 11:30 | disposition home or self-care (01) ==
LOC: HDOC 05:56 → HDIC 05:57 → HCIS 11:48 → HDOC 03-22 11:30
PROVIDERS: ATTEND Internal Medicine Interventional Cardiology
DX: I48.2 Chronic atrial fibrillation (principal); I45.2 Bifascicular block; E11.9 Type 2 diabetes mellitus without complications; Z79.4 Long term (current) use of insulin
CPT/HCPCS: 80048; 82948; 85002; 85025; 85610; 85730; 86850; 86900; 86901; 93005; 93312; 93320; 93325; 93613; 93623; 93656; 93662; C1730; C1731; C1732; C1759; C1766; C2630; J1100; J1644; J1940; J1956; J2370; J2405; J2710; J2720; J3010; J7050

== ENCOUNTER 2017-03-26 00:36 | Inpatient (IN) | payer OTHER, MEDICARE ==
[~2017-03-26] VITALS: Ht 172.7 cm; Wt 91.9 kg
[2017-03-26] VITALS (8 sets, daily range): BP systolic 122–145; BP diastolic 60–70; PULSE 60–77; RESP 15–26; TEMP 97.6–98.6; O2SAT 94–99
[~2017-03-26 00:36] MED LIST changes: +AMIO200T PO; -CARD180C5 PO; +MULTTAB67 PO; -WALKER WHEELS/F1 MIS
[2017-03-26] MEDS ORDERED: SODIUM CHLORIDE 0.9% FLUSH 10 ML FLUSH IVF PRN (00:45)
--- NOTE | 2017-03-26 01:11 | RADRPT ---
EXAM DATE/TIME: 03/26/2017 00:55 [facility] COMPARISON: CHEST SINGLE AP, March 11, 2017, 12:39. INDICATIONS : Shortness of breath. MEDICAL HISTORY : None. SURGICAL HISTORY : Pacemaker. Defibrillator. Stents. ENCOUNTER: Initial ACUITY: 1 day PAIN SCORE: 0/10 LOCATION: Bilateral chest FINDINGS: The cardiac silhouette is enlarged in transverse diameter. There are findings of congestive heart leonides lure with interstitial and alveolar opacity bilaterally. Moderate size bilateral pleural effusions ar e identified. A defibrillator device is in place via a left sided approach. CONCLUSION: 1. Cardiomegaly and findings of congestive heart failure. 2. Bilateral effusions Ashutosh Read MD on March 26, 2017 at 1:06 Board Certified Radiologist. This report was verified electronically.
[2017-03-26] MEDS ORDERED: FUROSEMIDE 40 MG/4 ML VIAL IV PUSH ONE (01:30)
[2017-03-26 02:04] LABS: AUTOMATED NEUTROPHIL # 6.3 TH/MM3 (1.8-7.7); BASOPHIL % 0.4 % (0.0-2.0); EOSINOPHIL # 0.1 TH/MM3 (0-0.4); EOSINOPHIL % 0.8 % (0.0-4.0); HEMATOCRIT 37.6 % (39.0-51.0); HEMOGLOBIN 12.3 GM/DL (13.0-17.0); LYMPH % 11.9 % (9.0-44.0); MEAN CELL VOLUME 92.9 FL (80.0-100.0); MEAN CORPUSCULAR HEMOGLOBIN 30.4 PG (27.0-34.0); MEAN CORPUSCULAR HGB CONC 32.7 % (32.0-36.0); MEAN PLATELET VOLUME 7.5 FL (7.0-11.0); MONO % 11.3 % (0.0-8.0); MONOCYTE # 0.9 TH/MM3 (0-0.9); NEUT % 75.6 % (16.0-70.0); PLATELET COUNT 160 TH/MM3 (150-450); RED BLOOD COUNT 4.04 MIL/MM3 (4.50-5.90); RED CELL DISTRIBUTION WIDTH 15.3 % (11.6-17.2); WHITE BLOOD COUNT 8.3 TH/MM3 (4.0-11.0)
[2017-03-26 02:15] LABS: INTERNATIONAL NORMALIZED RATIO 1.7 RATIO
[2017-03-26] MEDS ORDERED: CARD180T PO (02:15)
[2017-03-26] MEDS ORDERED: AMIO400T PO (02:15)
[2017-03-26 02:18] LABS: ALBUMIN 3.3 GM/DL (3.4-5.0); ALT (GPT) 33 U/L (12-78); AST (GOT) 31 U/L (15-37); BICARBONATE 30.7 MEQ/L (21.0-32.0); BLOOD UREA NITROGEN 29 MG/DL (7-18); CALCIUM 8.3 MG/DL (8.5-10.1); CHLORIDE 99 MEQ/L (98-107); GLOMERULAR FILTRATION RATE 42 ML/MIN (>89); GLUCOSE,RANDOM 133 MG/DL (74-106); SODIUM (NA) 138 MEQ/L (136-145)
[2017-03-26 02:23] LABS: ALKALINE PHOSPHATASE 126 U/L (45-117); TOTAL BILIRUBIN ADULT 0.5 MG/DL (0.2-1.0); TOTAL PROTEIN 6.9 GM/DL (6.4-8.2); TROPONIN I 0.11 NG/ML (0.02-0.05)
[2017-03-26] MEDS ORDERED: ASPIRIN 81 MG CHEW TAB CHEW ONE (02:30)
--- NOTE | 2017-03-26 02:39 | PD ---
HPI Chief Complaint: Respiratory Symptoms Time Seen by Provider: 00:42 Travel History International Travel<30 days: No Contact w/Intl Traveler<30days: No Traveled to known affect area: No History of Present Illness HPI Patient is a 76-year-old male who comes in complaining of shortness of breath. He says it started suddenly today and has gotten worse. He was here and had a cardiac ablation performed March 21. He says he was feeling better until today. He does have history of CHF and had issues with fluid buildup in the past. He says he has noticed increased swelling of both of his legs. He reports compliance with medications. He says he took 3 of his water pills today. He denies cough or fever. He has not had any chest pain. He has not felt relief of his shortness of breath by taking the extra water pills. PFSH Past Medical History Hx Anticoagulant Therapy: Yes (xarelto) Arthritis: Yes Asthma: No Atrial Fibrillation: Yes Autoimmune Disease: No Blood Disorders: No Anxiety: No Depression: No Heart Rhythm Problems: Yes Cancer: No Cardiac Catheterization: Yes (STENT X 3 CAN'T REMEMBER DATE.) Cardiovascular Problems: Yes (afib, chf) High Cholesterol: Yes Chemotherapy: No Chest Pain: No Congestive Heart Failure: Yes COPD: No Cerebrovascular Accident: Yes Coronary Artery Disease: Yes Diabetes: Yes (TYPE II) Patient Takes Glucophage: No Diminished Hearing: Yes (WEARS RIGHT HEARING AID) Endocrine: Yes Gastrointestinal Disorders: Yes (GALLSTONES) GERD: Yes Glaucoma: No Genitourinary: No Headaches: No Hepatitis: No Hiatal Hernia: No Heparin Induced Thrombocytopen: No Hypertension: Yes Immune Disorder: No Implanted Vascular Access Dvce: Yes Kidney Stones: No Musculoskeletal: Yes Neurologic: No Psychiatric: No Reproductive: No Respiratory: Yes (SOB) Integumentary: No Immunizations Current: Yes Migraines: No Myocardial Infarction: Yes Radiation Therapy: No Renal Failure: No 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 ) Sickle Cell Disease: No Sleep Apnea: No Thyroid Disease: No Ulcer: Yes (GASTRIC) PNEUMOCCOCAL Vaccine (Year): 1 Past Surgical History Abdominal Surgery: Yes (cholecystectomy) AICD: Yes Appendectomy: No Arteriovenous Shunt: No Cardiac Surgery: Yes (ABLASION 03/21/17) Cholecystectomy: Yes Coronary Stent: Yes (1994 /pacer placed 2 yr ago) Ear Surgery: No Endocrine Surgery: No Eye Surgery: Yes (right eye detached retina repair;right eye cataract removal) Genitourinary Surgery: Yes (penile implantation and removal) Gynecologic Surgery: No Insulin Pump: No Joint Replacement: No Neurologic Surgery: Yes (BRAIN SX FOR ABCESS) Oral Surgery: No Pacemaker: Yes Thoracic Surgery: Yes (AICD) Other Surgery: Yes Social History Alcohol Use: Yes ("A BEER ONCE OR TWICE A MONTH") Tobacco Use: No Substance Use: No Allergies-Medications (Allergen,Severity, Reaction): Coded Allergies: No Known Allergies (Verified Allergy, Unknown, 01/30/17) Reported Meds & Prescriptions Reported Meds & Active Scripts Active Torsemide 20 Mg Tab 20 Mg PO BID Lisinopril 10 Mg Tab 10 Mg PO DAILY Reported Cardizem LA (Diltiazem ER 24 HR) 180 Mg Mario 180 Mg PO DAILY Amiodarone (Amiodarone HCl) 400 Mg Tab 400 Mg PO DAILY Multiple Vitamin 1 Tab 1 Tab PO DAILY Keppra (Levetiracetam) 500 Mg Tab 500 Mg PO BID Omeprazole 20 Mg Tab 20 Mg PO DAILY Nitroglycerin SL (Nitroglycerin) 0.4 Mg Subl 0.4 Mg SL DIRECTED PRN ONE TABLET UNDER THE TONGUE NEEDED FOR CHEST PAIN, MAY REPEAT EVERY FIVE MINUTES FOR A TOTAL OF 3 DOSES OR CALL 911 IF NO RELIEF Klor-Con M20 (Potassium Chloride Microencaps) 20 Meq Tab 20 Meq PO Q12HR Glipizide 5 Mg Tab 5 Mg PO DAILY Take 30 minutes before a meal Humulin N Inj (Insulin Human NPH) 1,000 Unit/10 Ml Vial Units SQ DIRECTED Xarelto (Rivaroxaban) 20 Mg Tab 20 Mg PO HS Metoprolol Succinate ER 24 HR (Metoprolol Succinate) 200 Mg Tab 200 Mg PO DAILY Atorvastatin (Atorvastatin Calcium) 80 Mg Tab 80 Mg PO HS Review of Systems Except as stated in HPI: all other systems reviewed are Neg General / Constitutional: No: Fever, Chills HENT: No: Headaches, Lightheadedness Cardiovascular: No: Chest Pain or Discomfort Respiratory: Positive: Shortness of Breath Gastrointestinal: No: Nausea, Vomiting Genitourinary: No: Dysuria Musculoskeletal: Positive: Edema, No: Pain Skin: No Rash, No Change in Pigmentation Neurologic: No: Weakness, Dizziness Physical Exam Narrative GENERAL: Awake and alert, in no acute distress. SKIN: Focused skin assessment warm/dry. HEAD: Atraumatic. Normocephalic. EYES: Pupils equal and round. No scleral icterus. ENT: Mucous membranes pink and moist. NECK: Trachea midline. No JVD. CARDIOVASCULAR: Regular rate and rhythm. No murmur appreciated. RESPIRATORY: No accessory muscle use. Crackles in the right lung. Breath sounds equal bilaterally. GASTROINTESTINAL: Abdomen soft, non-tender, nondistended. MUSCULOSKELETAL: No obvious deformities. No clubbing. No cyanosis. 1+ pitting edema bilateral lower extremities. NEUROLOGICAL: Awake and alert. No obvious cranial nerve deficits. Motor grossly within normal limits. Normal speech. PSYCHIATRIC: Appropriate mood and affect; insight and judgment normal. Data Data Last Documented VS Vital Signs Date Time Temp Pulse Resp B/P (MAP) Pulse Ox O2 Delivery O2 Flow Rate FiO2 03/26/17 01:50 97 Room Air 03/26/17 00:43 62 18 1.00 03/26/17 00:39 98.6 140/67 (91) Orders Orders Complete Blood Count With Diff (03/26/17 00:43) Comprehensive Metabolic Panel (03/26/17 00:43) B-Type Natriuretic Peptide (03/26/17 00:43) Act Partial Throm Time (Ptt) (03/26/17 00:43) Prothrombin Time / Inr (Pt) (03/26/17 00:43) Troponin I (03/26/17 00:43) Iv Access Insert/Monitor (03/26/17 00:43) Electrocardiogram (03/26/17 00:43) Ecg Monitoring (03/26/17 00:43) Oximetry (03/26/17 00:43) Oxygen Administration (03/26/17 00:43) Chest, Single Ap (03/26/17 00:43) Sodium Chloride 0.9% Flush (Ns Flush) (03/26/17 00:45) Furosemide Inj (Lasix Inj) (03/26/17 01:30) Aspirin Chew (Aspirin Chew) (03/26/17 02:30) Admit Order (Ed Use Only) (03/26/17 ) Admit To Inpatient (03/26/17 ) Vital Signs (Adult) Q4H (03/26/17 02:37) Activity Oob With Assistance (03/26/17 02:37) Sampler Radioactive Waste / Telemetry .CONTINUOUS (03/26/17 02:37) Intake + Output BONNIE.QSHIFT (03/26/17 02:37) Diet Heart Healthy (03/26/17 Breakfast) Sodium Chloride 0.9% Flush (Ns Flush) (03/26/17 02:45) Sodium Chloride 0.9% Flush (Ns Flush) (03/26/17 09:00) Basic Metabolic Panel (Bmp) (03/27/17 06:00) Complete Blood Count With Diff (03/27/17 06:00) Pt Request For Service (03/26/17 02:37) Case Management Consult (03/26/17 02:37) Naloxone Inj (Narcan Inj) (03/26/17 02:45) Inpatient Certification (03/26/17 ) Furosemide Inj (Lasix Inj) (03/26/17 09:00) Potassium Chloride (Kcl) (03/26/17 02:45) Labs Laboratory Tests Test 03/26/17 01:50 White Blood Count 8.3 TH/MM3 Red Blood Count 4.04 MIL/MM3 Hemoglobin 12.3 GM/DL Hematocrit 37.6 % Mean Corpuscular Volume 92.9 FL Mean Corpuscular Hemoglobin 30.4 PG Mean Corpuscular Hemoglobin Concent 32.7 % Red Cell Distribution Width 15.3 % Platelet Count 160 TH/MM3 Mean Platelet Volume 7.5 FL Neutrophils (%) (Auto) 75.6 % Lymphocytes (%) (Auto) 11.9 % Monocytes (%) (Auto) 11.3 % Eosinophils (%) (Auto) 0.8 % Basophils (%) (Auto) 0.4 % Neutrophils # (Auto) 6.3 TH/MM3 Lymphocytes # (Auto) 1.0 TH/MM3 Monocytes # (Auto) 0.9 TH/MM3 Eosinophils # (Auto) 0.1 TH/MM3 Basophils # (Auto) 0.0 TH/MM3 CBC Comment DIFF FINAL Differential Comment Prothrombin Time 17.0 SEC Prothromb Time International Ratio 1.7 RATIO Activated Partial Thromboplast Time 41.2 SEC Blood Urea Nitrogen 29 MG/DL Creatinine 1.60 MG/DL Random Glucose 133 MG/DL Total Protein 6.9 GM/DL Albumin 3.3 GM/DL Calcium Level 8.3 MG/DL Alkaline Phosphatase 126 U/L Aspartate Amino Transf (AST/SGOT) 31 U/L Alanine Aminotransferase (ALT/SGPT) 33 U/L Total Bilirubin 0.5 MG/DL Sodium Level 138 MEQ/L Potassium Level 3.9 MEQ/L Chloride Level 99 MEQ/L Carbon Dioxide Level 30.7 MEQ/L Anion Gap 8 MEQ/L Estimat Glomerular Filtration Rate 42 ML/MIN Troponin I 0.11 NG/ML B-Type Natriuretic Peptide 886 PG/ML MDM Medical Decision Making Medical Screen Exam Complete: Yes Emergency Medical Condition: Yes Medical Record Reviewed: Yes Interpretation(s) ECG shows atrial pacemaker, rate is 60. Differential Diagnosis CHF exacerbation versus ACS versus pneumonia Narrative Course Patient is a 76-year-old male comes in complaining of shortness of breath. Exam shows crackles at the right lung base. IV established, labs sent. Labs show troponin of 0.11. This is likely due to his recent procedure. BNP is elevated. Chest x-ray shows a large right-sided pleural effusion. Patient given a dose of Lasix. Given an aspirin. He'll be admitted for further management. Diagnosis Primary Impression: CHF exacerbation Qualified Codes: I50.23 - Acute on chronic systolic (congestive) heart failure Additional Impression: Edema Qualified Codes: R60.9 - Edema, unspecified Admitting Information Admitting Physician Requests: it Vickie Maciel MD Mar 26, 2017 02:39
[2017-03-26] MEDS ORDERED: POTASSIUM CHLORIDE 20 MEQ CONTROLLED RELEASE TAB PO ONE (02:45)
[2017-03-26] MEDS ORDERED: NALOXONE HCL 0.4 MG/ML AMP IV PUSH PRN (02:45)
[2017-03-26] MEDS ORDERED: SODIUM CHLORIDE 0.9% FLUSH 10 ML FLUSH IV FLUSH PRN (02:45)
[2017-03-26] MEDS: SODIUM CHLORIDE 0.9% FLUSH 10 ML FLUSH IV FLUSH SCH ×2 (09:22→19:47)
[2017-03-26] MEDS: FUROSEMIDE 40 MG/4 ML VIAL IV PUSH SCH ×2 (09:23→17:09)
--- NOTE | 2017-03-26 14:31 | HHI.HP ---
HPI Service [facility] Primary Care Physician Teja Beach Do, MD Admission Diagnosis CHF, pleural effusion Diagnoses: (1) Acute on chronic systolic and diastolic heart failure, NYHA class 3 Chief Complaint: Shortness of breath Travel History International Travel<30 Days: No Contact w/Intl Traveler <30 Da: No Traveled to Known Affected Are: No History of Present Illness 76 year old male with a history of ischemic cardiomyopathy, Afib, CHF presenting to the ED with worsening shortness of breath over the past several weeks to month however worse over the past 3 days without any chest pain. Patient endorses bilateral lower extremity edema. Patient is status post cardiac ablation 03/21/17. Chest x-ray on arrival with evidence of congestive heart failure. BNP 800+. Patient denies any GI bleed. 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- s/p surgical removal in 1987 or 1988 stents for coronary cholecystectomy Reported Medications Torsemide 20 Mg Tab 20 Mg PO BID Lisinopril 10 Mg Tab 10 Mg PO DAILY Reported Cardizem LA (Diltiazem ER 24 HR) 180 Mg Mario 180 Mg PO DAILY Amiodarone (Amiodarone HCl) 400 Mg Tab 400 Mg PO DAILY Multiple Vitamin 1 Tab 1 Tab PO DAILY Keppra (Levetiracetam) 500 Mg Tab 500 Mg PO BID Omeprazole 20 Mg Tab 20 Mg PO DAILY Nitroglycerin SL (Nitroglycerin) 0.4 Mg Subl 0.4 Mg SL DIRECTED PRN ONE TABLET UNDER THE TONGUE NEEDED FOR CHEST PAIN, MAY REPEAT EVERY FIVE MINUTES FOR A TOTAL OF 3 DOSES OR CALL 911 IF NO RELIEF Klor-Con M20 (Potassium Chloride Microencaps) 20 Meq Tab 20 Meq PO Q12HR Glipizide 5 Mg Tab 5 Mg PO DAILY Take 30 minutes before a meal Humulin N Inj (Insulin Human NPH) 1,000 Unit/10 Ml Vial Units SQ DIRECTED Xarelto (Rivaroxaban) 20 Mg Tab 20 Mg PO HS Metoprolol Succinate ER 24 HR (Metoprolol Succinate) 200 Mg Tab 200 Mg PO DAILY Atorvastatin (Atorvastatin Calcium) 80 Mg Tab 80 Mg PO HS Allergies: Coded Allergies: No Known Allergies (Verified Allergy, Unknown, 01/30/17) Family History Family history positive for heart disease, CAD Social History used to smoke, quit 20yrs ago social drinker no drugs lives by myself, still driving and rides motorcycles Physical Exam Vital Signs Vital Signs Date Time Temp Pulse Resp B/P (MAP) Pulse Ox O2 Delivery O2 Flow Rate FiO2 03/26/17 12:48 97.6 60 26 122/60 (80) 97 Room Air 03/26/17 09:06 97.7 72 15 145/67 (93) 96 Room Air 03/26/17 01:50 97 Room Air 03/26/17 00:43 62 18 99 Nasal Cannula 1.00 03/26/17 00:39 98.6 61 18 140/67 (91) 99 Physical Exam GENERAL: This is a well-nourished, well-developed patient, in no apparent distress. SKIN: No rashes, ecchymoses or lesions. Cool and dry. HEAD: Atraumatic. Normocephalic. No temporal or scalp tenderness. EYES: Pupils equal round and reactive. Extraocular motions intact. No scleral icterus. No injection or drainage. ENT: Nose without bleeding, purulent drainage or septal hematoma. Throat without erythema, tonsillar hypertrophy or exudate. Uvula midline. Airway patent. NECK: Trachea midline. No JVD or lymphadenopathy. Supple, nontender, no meningeal signs. CARDIOVASCULAR: Irregular Regular rate and rhythm without murmurs, gallops, or rubs. RESPIRATORY: Clear to auscultation. Breath sounds equal bilaterally. No wheezes , rales, or rhonchi. GASTROINTESTINAL: Abdomen soft, non-tender, nondistended. No hepato-splenomegaly , or palpable masses. No guarding. MUSCULOSKELETAL: Extremities without clubbing, cyanosis; +1 BLE edema. No joint tenderness, effusion, or edema noted. No calf tenderness. Negative Homans sign bilaterally. NEUROLOGICAL: Awake and alert. Cranial nerves II through XII intact. Motor and sensory grossly within normal limits. Five out of 5 muscle strength in all muscle groups. Normal speech. Laboratory Laboratory Tests Test 03/26/17 01:50 White Blood Count 8.3 Red Blood Count 4.04 Hemoglobin 12.3 Hematocrit 37.6 Mean Corpuscular Volume 92.9 Mean Corpuscular Hemoglobin 30.4 Mean Corpuscular Hemoglobin Concent 32.7 Red Cell Distribution Width 15.3 Platelet Count 160 Mean Platelet Volume 7.5 Neutrophils (%) (Auto) 75.6 Lymphocytes (%) (Auto) 11.9 Monocytes (%) (Auto) 11.3 Eosinophils (%) (Auto) 0.8 Basophils (%) (Auto) 0.4 Neutrophils # (Auto) 6.3 Lymphocytes # (Auto) 1.0 Monocytes # (Auto) 0.9 Eosinophils # (Auto) 0.1 Basophils # (Auto) 0.0 CBC Comment DIFF FINAL Differential Comment Prothrombin Time 17.0 Prothromb Time International Ratio 1.7 Activated Partial Thromboplast Time 41.2 Blood Urea Nitrogen 29 Creatinine 1.60 Random Glucose 133 Total Protein 6.9 Albumin 3.3 Calcium Level 8.3 Alkaline Phosphatase 126 Aspartate Amino Transf (AST/SGOT) 31 Alanine Aminotransferase (ALT/SGPT) 33 Total Bilirubin 0.5 Sodium Level 138 Potassium Level 3.9 Chloride Level 99 Carbon Dioxide Level 30.7 Anion Gap 8 Estimat Glomerular Filtration Rate 42 Troponin I 0.11 B-Type Natriuretic Peptide 886 Result Diagram: 03/26/1714903/26/17149 Imaging Last Impressions Chest X-Ray 03/26/17 0043 Signed Impressions: Service Date/Time: Sunday, March 26, 2017 00:55 - CONCLUSION: 1. Cardiomegaly and findings of congestive heart failure. 2. Bilateral effusions Ashutosh Read MD Septic Shock Reassessment Septic shock perfusion: reassessment completed Caprini VTE Risk Assessment Caprini VTE Risk Assessment: Mod/High Risk (score >= 2) Caprini Risk Assessment Model Point Value = 1 Point Value = 2 Point Value = 3 Point Value = 5 Age 41-60 Minor surgery BMI > 25 kg/m2 Swollen legs Varicose veins or History of unexplained or recurrent spontaneous Oral contraceptives or hormone replacement Sepsis (< 1 month) Serious lung disease, including pneumonia (< 1 month) Abnormal pulmonary function Acute myocardial infarction Congestive heart failure (< 1 month) History of inflammatory bowel disease Medical patient at bed rest Age 61-74 Arthroscopic surgery Major open surgery (> 45 min) Laparoscopic surgery (> 45 min) Malignancy Confined to bed (> 72 hours) Immobilizing plaster cast Central venous access Age >= 75 History of VTE Family history of VTE Factor V Leiden Prothrombin [id number] Lupus anticoagulant Anticardiolipin antibodies Elevated serum homocysteine Heparin-induced thrombocytopenia Other congenital or acquired thrombophilia Stroke (< 1 month) Elective arthroplasty Hip, pelvis, or leg fracture Acute spinal cord injury (< 1 month) Prophylaxis Regimen Total Risk Factor Score Risk Level Prophylaxis Regimen 0-1 Low Early ambulation 2 Moderate Order ONE of the following: *Sequential Compression Device (SCD) *Heparin 5000 units SQ BID 3-4 Higher Order ONE of the following medications: *Heparin 5000 units SQ TID *Enoxaparin/Lovenox 40 mg SQ daily (WT < 150 kg, CrCl > 30 mL/min) *Enoxaparin/Lovenox 30 mg SQ daily (WT < 150 kg, CrCl > 10-29 mL/min) *Enoxaparin/Lovenox 30 mg SQ BID (WT < 150 kg, CrCl > 30 mL/min) AND/OR *Sequential Compression Device (SCD) 5 or more Highest Order ONE of the following medications: *Heparin 5000 units SQ TID (Preferred with Epidurals) *Enoxaparin/Lovenox 40 mg SQ daily (WT < 150 kg, CrCl > 30 mL/min) *Enoxaparin/Lovenox 30 mg SQ daily (WT < 150 kg, CrCl > 10-29 mL/min) *Enoxaparin/Lovenox 30 mg SQ BID (WT < 150 kg, CrCl > 30 mL/min) AND *Sequential Compression Device (SCD) Assessment and Plan Problem List: (1) Acute on chronic systolic and diastolic heart failure, NYHA class 3 ICD Code: I50.43 - Acute on chronic combined systolic (congestive) and diastolic (congestive) heart failure (2) Paroxysmal atrial fibrillation ICD Code: I48.0 - Paroxysmal atrial fibrillation (3) Cardiomyopathy ICD Code: I42.9 - Cardiomyopathy, unspecified Assessment and Plan 76-year-old man with Acute on chronic systolic CHF exacerbation With x-ray noted and review by me with evidence of congestive heart failure Last 2D echo with EF 25% (01/21/17); may obtain Limited 2D echo Currently on IV Lasix 40 mg twice a day Resume ALISON-I and BB Consult cardiology for further management Strict I's and O's Paroxysmal A. fib s/p recent cardiac ablation 03/21/17 Resume Xarelto, beta [place], amiodarone Diabetes type 2 Start ISS History of seizure disorder Resume Keppra Hyperlipidemia Resume statin DVT prophylaxis: Xarelto Code Status Full code Discussed Condition With Patient Physician Certification Order for Inpatient Services The services are ordered in accordance with Medicare regulations or non- Medicare payer requirements, as applicable. In the case of services not specified as inpatient-only, they are appropriately provided as inpatient services in accordance with the 2-midnight benchmark. days is the estimated time the patient will need to remain in the hospital, assuming treatment plan goals are met and no additional complications. Joo Frances MD Mar 26, 2017 14:31
[2017-03-26] MEDS ORDERED: DEXTROSE 50% IN WATER 50 ML VIAL(D50) IV PUSH PRN (14:45)
[2017-03-26] MEDS ORDERED: GLUCAGON 1 MG/ML VIAL OTHER PRN (14:45)
[2017-03-26] MEDS: INSULIN ASPART SUPPLEMENTAL SCALE SQ SCH ×2 (17:00→21:55)
[2017-03-26] MEDS: POTASSIUM CHLORIDE 20 MEQ CONTROLLED RELEASE TAB PO SCH (19:47)
[2017-03-26] MEDS: RIVAROXABAN 20 MG TAB PO SCH (19:47)
[2017-03-26] MEDS: ATORVASTATIN 80 MG TAB PO SCH (19:47)
[2017-03-26] MEDS: levETIRAcetam 500 MG TAB PO SCH (19:48)
--- NOTE | 2017-03-26 21:25 | EKG ---
Date Performed: 03/26/2017 Time Performed: 01:32:16 PTAGE: 76 years EKG: ELECTRONIC ATRIAL PACEMAKER MARKED LEFT AXIS DEVIATION RIGHT BUNDLE BRANCH BLOCK ABNORMAL E CG PREVIOUS TRACING : 03/22/2017 05.44 Compared to prior tracing no significant change DOCTOR: Chas Rincon Interpretating Date/Time 03/26/2017 21:24:17
[2017-03-27] VITALS (10 sets, daily range): BP systolic 113–148; BP diastolic 60–78; PULSE 60–70; RESP 16–19; TEMP 97.1–98.5; O2SAT 96–98
[2017-03-27] MEDS: INSULIN ASPART SUPPLEMENTAL SCALE SQ SCH ×4 (08:00→21:00)
[2017-03-27] MEDS ORDERED: LISINOPRIL 10 MG TAB PO SCH (09:00)
[2017-03-27] MEDS ORDERED: AMIODARONE 200 MG TAB PO SCH (09:00)
[2017-03-27] MEDS: levETIRAcetam 500 MG TAB PO SCH ×2 (09:20→22:09)
[2017-03-27] MEDS: METOPROLOL SUCCINATE 50 MG EXTENDED RELEASE TAB PO SCH (09:20)
[2017-03-27] MEDS: PANTOPRAZOLE SOD 20 MG DELAYED RELEASE TAB PO SCH (09:20)
[2017-03-27] MEDS: POTASSIUM CHLORIDE 20 MEQ CONTROLLED RELEASE TAB PO SCH ×2 (09:20→22:09)
[2017-03-27] MEDS: glipiZIDE 5 MG TAB PO SCH (09:21)
[2017-03-27] MEDS: FUROSEMIDE 40 MG/4 ML VIAL IV PUSH SCH (09:21)
[2017-03-27] MEDS: SODIUM CHLORIDE 0.9% FLUSH 10 ML FLUSH IV FLUSH SCH ×2 (09:21→21:00)
[2017-03-27 11:56] LABS: CALCIUM 8.9 MG/DL (8.5-10.1); CREATININE 1.46 MG/DL (0.60-1.30)
[2017-03-27 14:53] LABS: AUTOMATED NEUTROPHIL # 7.1 TH/MM3 (1.8-7.7); BASOPHIL % 0.4 % (0.0-2.0); EOSINOPHIL # 0.1 TH/MM3 (0-0.4); EOSINOPHIL % 0.8 % (0.0-4.0); HEMATOCRIT 36.9 % (39.0-51.0); HEMOGLOBIN 12.4 GM/DL (13.0-17.0); LYMPH % 8.4 % (9.0-44.0); LYMPHOCYTE # 0.7 TH/MM3 (1.0-4.8); MEAN CELL VOLUME 91.8 FL (80.0-100.0); MEAN CORPUSCULAR HEMOGLOBIN 30.8 PG (27.0-34.0); MEAN CORPUSCULAR HGB CONC 33.5 % (32.0-36.0); MEAN PLATELET VOLUME 7.3 FL (7.0-11.0); MONO % 9.1 % (0.0-8.0); MONOCYTE # 0.8 TH/MM3 (0-0.9); NEUT % 81.3 % (16.0-70.0); PLATELET COUNT 163 TH/MM3 (150-450); RED BLOOD COUNT 4.02 MIL/MM3 (4.50-5.90); RED CELL DISTRIBUTION WIDTH 15.1 % (11.6-17.2); WHITE BLOOD COUNT 8.8 TH/MM3 (4.0-11.0)
--- NOTE | 2017-03-27 15:40 | MB ---
cc: SHARITA FREY M.D. DATE OF CONSULTATION: 03/27/2017 REASON FOR CONSULTATION: Congestive heart failure. HISTORY: Mr. Bolton is a 76-year-old gentleman history of atrial fibrillation, recent hospitalization due to atrial fibrillation with biventricular response. A atrial fibrillation, atrial tachy cardial ablation was performed. It was successful. The gentleman was discharged home. He was readmitted due to heart failure. He has edema +3 in extremity. IV Lasix was initiated. The patient condition continued to improve. I was consulted for evaluation and management. The chart was reviewed. The patient was evaluated. ALLERGIES None. SOCIAL HISTORY The gentleman is negative for smoking and drinking. FAMILY HISTORY Noncontributory to his current medical condition. MEDICATIONS Mr. Bolton is currently on 1. Lasix IV. 2. Amiodarone 400 mg a day. 3. He is on Lipitor 80 mg a day. 4. He is on Glipizide. 5. Keppra. 6. Lisinopril. 7. Metoprolol. 8. Protonix. REVIEW OF SYSTEMS He refers currently feeling better because of losing alot of fluid but no chest pain or discomfort. No fever. PHYSICAL EXAMINATION: VITAL SIGNS: Physical exam, fully oriented. Blood pressure 148/78, Pulse 67, respiratory 18 LUNGS: Ventilated. CARDIOVASCULAR SYSTEM: S1-S2 regular. ABDOMEN: Soft, obese. No mass. EXTREMITIES: Extremity edema +1. TESTING: Electrocardiogram a pacing V sensing right bundle-branch block, diffuse ST changes. LABORATORY DATA Hemoglobin is 12.4, white blood cell 8.8, creatinine is coming down 1.46, potassium 4.4, troponin 0.11. BNP 886. ASSESSMENT AND RECOMMENDATIONS Mr. Bolton is in sinus rhythm. He is doing better. He is a pacing, V sensing. He has fluid overload. I discontinued the Lasix. I put him on Bumex 1 mg p.o. twice a day. I am going to DC the lisinopril. I am going to initiate Entresol at mid dose. The case was extensively discussed with Dr. Martinez. We will continue current medications, he can be discharged home whenever it is okay managing team. I will be available on a p.r.n. basis. The gentleman will see me at my office in two weeks for followup. MD Misty Cabrales /2:58 PM /3:29 PM
--- NOTE | 2017-03-27 17:03 | HHI.PR ---
Subjective Remarks 76 year old male with a history of ischemic cardiomyopathy, Afib, CHF presenting to the ED with worsening shortness of breath over the past several weeks to month however worse over the past 3 days without any chest pain. Patient endorses bilateral lower extremity edema. Patient is status post cardiac ablation 03/21/17. Chest x-ray on arrival with evidence of congestive heart failure. BNP 800+. Patient denies any GI bleed. States he has been compliant with his medications and denies any increase in salt intake 03-[address] FREY MEDICATIONS ADJUSTED CONTINUE TO DIURESE AM LABS Objective Vitals Vital Signs Date Time Temp Pulse Resp B/P (MAP) Pulse Ox O2 Delivery O2 Flow Rate FiO2 03/27/17 08:00 Room Air 03/27/17 08:00 97.5 67 18 148/78 (101) 96 03/27/17 04:39 Room Air 03/27/17 04:00 97.1 60 16 133/67 (89) 97 03/27/17 03:42 60 03/27/17 00:00 Room Air 03/27/17 00:00 97.5 62 18 144/69 (94) 96 03/26/17 23:47 67 03/26/17 20:00 98.4 77 16 144/66 (92) 94 03/26/17 20:00 Room Air 03/26/17 19:52 68 I/O 03/26/17 03/26/17 03/26/17 03/27/17 03/27/17 03/27/17 07:00 15:00 23:00 07:00 15:00 23:00 Intake Total 240 ml 360 ml Output Total 180 ml 240 ml 600 ml Balance -180 ml 0 ml -240 ml Intake Oral 240 ml 360 ml Output Urine Total 180 ml 240 ml 600 ml # Voids 1 # Bowel Movements 1 0 Result Diagram: 03/27/17 1332 03/27/17 1051 Other Results Laboratory Tests Test 03/26/17 01:50 03/27/17 10:51 03/27/17 13:32 White Blood Count 8.3 TH/MM3 8.8 TH/MM3 Red Blood Count 4.04 MIL/MM3 4.02 MIL/MM3 Hemoglobin 12.3 GM/DL 12.4 GM/DL Hematocrit 37.6 % 36.9 % Mean Corpuscular Volume 92.9 FL 91.8 FL Mean Corpuscular Hemoglobin 30.4 PG 30.8 PG Mean Corpuscular Hemoglobin Concent 32.7 % 33.5 % Red Cell Distribution Width 15.3 % 15.1 % Platelet Count 160 TH/MM3 163 TH/MM3 Mean Platelet Volume 7.5 FL 7.3 FL Neutrophils (%) (Auto) 75.6 % 81.3 % Lymphocytes (%) (Auto) 11.9 % 8.4 % Monocytes (%) (Auto) 11.3 % 9.1 % Eosinophils (%) (Auto) 0.8 % 0.8 % Basophils (%) (Auto) 0.4 % 0.4 % Neutrophils # (Auto) 6.3 TH/MM3 7.1 TH/MM3 Lymphocytes # (Auto) 1.0 TH/MM3 0.7 TH/MM3 Monocytes # (Auto) 0.9 TH/MM3 0.8 TH/MM3 Eosinophils # (Auto) 0.1 TH/MM3 0.1 TH/MM3 Basophils # (Auto) 0.0 TH/MM3 0.0 TH/MM3 CBC Comment DIFF FINAL DIFF FINAL Differential Comment Prothrombin Time 17.0 SEC Prothromb Time International Ratio 1.7 RATIO Activated Partial Thromboplast Time 41.2 SEC Blood Urea Nitrogen 29 MG/DL 22 MG/DL Creatinine 1.60 MG/DL 1.46 MG/DL Random Glucose 133 MG/DL 189 MG/DL Total Protein 6.9 GM/DL Albumin 3.3 GM/DL Calcium Level 8.3 MG/DL 8.9 MG/DL Alkaline Phosphatase 126 U/L Aspartate Amino Transf (AST/SGOT) 31 U/L Alanine Aminotransferase (ALT/SGPT) 33 U/L Total Bilirubin 0.5 MG/DL Sodium Level 138 MEQ/L 138 MEQ/L Potassium Level 3.9 MEQ/L 4.4 MEQ/L Chloride Level 99 MEQ/L 100 MEQ/L Carbon Dioxide Level 30.7 MEQ/L 27.0 MEQ/L Anion Gap 8 MEQ/L 11 MEQ/L Estimat Glomerular Filtration Rate 42 ML/MIN 47 ML/MIN Troponin I 0.11 NG/ML B-Type Natriuretic Peptide 886 PG/ML Imaging Last Impressions Chest X-Ray 03/26/17 0043 Signed Impressions: Service Date/Time: Sunday, March 26, 2017 00:55 - CONCLUSION: 1. Cardiomegaly and findings of congestive heart failure. 2. Bilateral effusions Ashutosh Read MD Objective Remarks GENERAL: This is a well-nourished, well-developed patient, in MILD distress. APPEARS UNCOMFORTABLE SKIN: No rashes, ecchymoses or lesions. Cool and dry. HEAD: Atraumatic. Normocephalic. No temporal or scalp tenderness. EYES: Pupils equal round and reactive. Extraocular motions intact. No scleral icterus. No injection or drainage. ENT: Nose without bleeding, purulent drainage or septal hematoma. Throat without erythema, tonsillar hypertrophy or exudate. Uvula midline. Airway patent. NECK: Trachea midline. No JVD or lymphadenopathy. Supple, nontender, no meningeal signs. CARDIOVASCULAR: Irregular Regular rate and rhythm without murmurs, gallops, or rubs. S1, S2 NO S3 OR S4 RESPIRATORY: DIMINISHED BREATH SOUNDS . Breath sounds equal bilaterally. No wheezes, FEW RALES AT BASES. GASTROINTESTINAL: Abdomen soft, non-tender, nondistended. No hepato-splenomegaly , or palpable masses. No guarding. MUSCULOSKELETAL: Extremities without clubbing, cyanosis; +4 BLE edema. No joint tenderness, effusion, or edema noted. No calf tenderness. Negative Homans sign bilaterally. NEUROLOGICAL: Awake and alert. Cranial nerves II through XII intact. Motor and sensory grossly within normal limits. Five out of 5 muscle strength in all muscle groups. Normal speech. INSIGHT AND JUDGEMENT ARE GOOD MOOD AND BEHAVIOR ARE APPROPRIATE Medications and IVs Current Medications Sodium Chloride (NS Flush) 2 ml UNSCH PRN IVF FLUSH AFTER USING IV ACCESS; Start 03/26/17 at 00:45; Stop 03/26/17 at 02:42; Status DC Furosemide (Lasix Inj) 40 mg ONCE ONCE IV PUSH Last administered on 03/26/17at 01:56; Start 03/26/17 at 01:30; Stop 03/26/17 at 01:31; Status DC Aspirin (Aspirin Chew) 324 mg ONCE ONCE CHEW Last administered on 03/26/17at 02 :40; Start 03/26/17 at 02:30; Stop 03/26/17 at 02:31; Status DC Sodium Chloride (NS Flush) 2 ml UNSCH PRN IV FLUSH FLUSH AFTER USING IV ACCESS ; Start 03/26/17 at 02:45 Sodium Chloride (NS Flush) 2 ml BID IV FLUSH Last administered on 03/27/17at 09: 21; Start 03/26/17 at 09:00 Naloxone HCl (Narcan Inj) 0.4 mg UNSCH PRN IV PUSH SEE LABEL COMMENTS; Start at 02:45 Furosemide (Lasix Inj) 40 mg BID@ IV PUSH Last administered on 03/27/17at 09:21; Start 03/26/17 at 09:00; Stop 03/27/17 at 15:00; Status DC Potassium Chloride (KCl) 40 meq ONCE ONCE PO Last administered on 03/26/17at 03 :49; Start 03/26/17 at 02:45; Stop 03/26/17 at 02:46; Status DC Amiodarone HCl (Cordarone) 400 mg DAILY PO Last administered on 03/27/17at 09:21 ; Start 03/27/17 at 09:00; Stop 03/27/17 at 15:00; Status DC Atorvastatin Calcium (Lipitor) 80 mg HS PO Last administered on 03/26/17at 19:47 ; Start 03/26/17 at 21:00 Glipizide (Glucotrol) 5 mg DAILYAC PO Last administered on 03/27/17at 09:21; Start 03/27/17 at 08:00 Levetriacetam (Keppra) 500 mg BID PO Last administered on 03/27/17at 09:20; Start 03/26/17 at 21:00 Lisinopril (Prinivil) 10 mg DAILY PO Last administered on 03/27/17at 09:20; Start 03/27/17 at 09:00; Stop 03/27/17 at 15:04; Status DC Potassium Chloride (KCl) 20 meq Q12HR PO Last administered on 03/27/17at 09:20; Start 03/26/17 at 21:00 Rivaroxaban (Xarelto) 20 mg HS PO Last administered on 03/26/17at 19:47; Start 03/26/17 at 21:00 Metoprolol Succinate (Toprol Xl) 200 mg DAILY PO Last administered on at 09:20; Start 03/27/17 at 09:00 Pantoprazole Sodium (Protonix) 20 mg DAILY PO Last administered on 03/27/17at 09 :20; Start 03/27/17 at 09:00 Dextrose (D50w (Vial) Inj) 50 ml UNSCH PRN IV PUSH HYPOGLYCEMIA-SEE COMMENTS; Start 03/26/17 at 14:45 Glucagon (Glucagon Inj) 1 mg UNSCH PRN OTHER HYPOGLYCEMIA-SEE COMMENTS; Start 03/26/17 at 14:45 Insulin Aspart (NovoLOG SUPPLEMENTAL SCALE) 1 ACHS SLIDING SCALE SQ Last administered on 03/26/17at 21:55; Start 03/26/17 at 17:00 Amiodarone HCl (Cordarone) 200 mg DAILY PO ; Start 03/28/17 at 09:00 Bumetanide (Bumetanide) 1 mg BID@,18 PO ; Start 03/27/17 at 18:00 Sacubitril/ Valsartan (Entresto 49-51 Mg) 1 tab BID PO ; Start 03/27/17 at 21:00 A/P Problem List: (1) Acute on chronic systolic and diastolic heart failure, NYHA class 3 ICD Code: I50.43 - Acute on chronic combined systolic (congestive) and diastolic (congestive) heart failure Assessment and Plan 76-year-old man with Acute on chronic systolic CHF exacerbation With x-ray noted and review by me with evidence of congestive heart failure Last 2D echo with EF 25% (01/21/17); may obtain Limited 2D echo Currently on IV BUMEX 1MG IV Q12 Resume BB -START ON ENTRESTO Consult cardiology for further management SEEN BY DR SHANTE Taveras I's and O's Paroxysmal A. fib IN SINUS RHYTHM s/p recent cardiac ablation 03/21/17 Resume Xarelto, beta [place], amiodarone Diabetes type 2 Start ISS History of seizure disorder Resume Keppra Hyperlipidemia Resume statin DVT prophylaxis: Xarelto CONTINUE AGGRESSIVE DIURESIS - NOT AT GOAL WEIGHT MAY NEED ANOTHER AGENT DEPENDING ON THE OUTPUT OVERNIGHT TOMORROW Discharge Planning PENDING FLUID OVERLOAD IMPROVEMENT Anthony Minaya DO Mar 27, 2017 17:03
[2017-03-27] MEDS: BUMETANIDE 1 MG TAB PO SCH (17:28)
[2017-03-27] MEDS: SACUBITRIL/VALSARTAN 49 MG-51 MG TAB PO SCH (22:09)
[2017-03-27] MEDS: ATORVASTATIN 80 MG TAB PO SCH (22:09)
[2017-03-27] MEDS: RIVAROXABAN 20 MG TAB PO SCH (22:09)
[2017-03-28] VITALS (8 sets, daily range): BP systolic 107–134; BP diastolic 57–66; PULSE 60–90; RESP 17–22; TEMP 97.2–98.7; O2SAT 94–99
[2017-03-28] MEDS: INSULIN ASPART SUPPLEMENTAL SCALE SQ SCH ×4 (08:00→21:00)
[2017-03-28] MEDS: AMIODARONE 200 MG TAB PO SCH (08:43)
[2017-03-28] MEDS: METOPROLOL SUCCINATE 50 MG EXTENDED RELEASE TAB PO SCH (08:43)
[2017-03-28] MEDS: POTASSIUM CHLORIDE 20 MEQ CONTROLLED RELEASE TAB PO SCH ×2 (08:43→21:55)
[2017-03-28] MEDS: glipiZIDE 5 MG TAB PO SCH (08:43)
[2017-03-28] MEDS: SACUBITRIL/VALSARTAN 49 MG-51 MG TAB PO SCH ×2 (08:43→21:54)
[2017-03-28] MEDS: PANTOPRAZOLE SOD 20 MG DELAYED RELEASE TAB PO SCH (08:44)
[2017-03-28] MEDS: levETIRAcetam 500 MG TAB PO SCH ×2 (08:44→21:55)
[2017-03-28] MEDS: SODIUM CHLORIDE 0.9% FLUSH 10 ML FLUSH IV FLUSH SCH ×2 (08:44→21:54)
[2017-03-28] MEDS: BUMETANIDE 1 MG TAB PO SCH ×2 (08:44→17:11)
--- NOTE | 2017-03-28 11:26 | HHI.FF ---
Face to Face Verification Diagnosis: (1) S/P ablation of atrial fibrillation (2) Chronic systolic congestive heart failure (3) Ischemic cardiomyopathy (4) GERD (gastroesophageal reflux disease) (5) Hypomagnesemia (6) CAD (coronary artery disease) (7) Hyperlipidemia (8) Diabetes mellitus type 2, uncontrolled (9) Hypertension, benign (10) Acute on chronic systolic and diastolic heart failure, NYHA class 3 (11) Cardiomyopathy (12) CHF exacerbation (13) Paroxysmal atrial fibrillation Physical Therapy Order: Evaluate and Treat, Improve ambulation, Strength and gait training Occupational Therapy Order: Evaluate and Treat, Improve ADL, Gross motor coordination, Fine motor coordination Home Health Nursing Order: Medical education Signs/symptoms of disease process CHF education Nursing assessment with vital signs Home Health Aide Order: To Assist In: Bathing and personal care, turnstile attendant and meal prep I have seen patient Triston Bolton on 03/28/17. My clinical findings support the need for the requested home health care services because: Med compliance is questionable I certify that my clinical findings support that this patient is homebound because: Poor cardiac reserve Anthony Minaya DO Mar 28, 2017 11:26
[2017-03-28 11:42] LABS: BASOPHIL % 0.4 % (0.0-2.0); EOSINOPHIL # 0.1 TH/MM3 (0-0.4); EOSINOPHIL % 0.7 % (0.0-4.0); HEMATOCRIT 37.8 % (39.0-51.0); HEMOGLOBIN 12.4 GM/DL (13.0-17.0); MEAN CELL VOLUME 92.6 FL (80.0-100.0); MEAN CORPUSCULAR HEMOGLOBIN 30.5 PG (27.0-34.0); MEAN CORPUSCULAR HGB CONC 32.9 % (32.0-36.0); MEAN PLATELET VOLUME 7.4 FL (7.0-11.0); MONOCYTE # 0.8 TH/MM3 (0-0.9); NEUT % 78.9 % (16.0-70.0); PLATELET COUNT 164 TH/MM3 (150-450); RED BLOOD COUNT 4.08 MIL/MM3 (4.50-5.90); WHITE BLOOD COUNT 8.9 TH/MM3 (4.0-11.0)
[2017-03-28 11:53] LABS: AST (GOT) 24 U/L (15-37); BLOOD UREA NITROGEN 17 MG/DL (7-18); CALCIUM 8.6 MG/DL (8.5-10.1); CHLORIDE 102 MEQ/L (98-107); CREATININE 1.29 MG/DL (0.60-1.30); GLOMERULAR FILTRATION RATE 54 ML/MIN (>89); GLUCOSE,RANDOM 184 MG/DL (74-106); MAGNESIUM 2.4 MG/DL (1.5-2.5); SODIUM (NA) 139 MEQ/L (136-145)
[2017-03-28 12:02] LABS: ALKALINE PHOSPHATASE 109 U/L (45-117); ALT (GPT) 30 U/L (12-78); FREE T4 1.33 NG/DL (0.76-1.46); PHOSPHORUS 2.9 MG/DL (2.5-4.9); TOTAL BILIRUBIN ADULT 0.4 MG/DL (0.2-1.0); TOTAL PROTEIN 6.3 GM/DL (6.4-8.2)
--- NOTE | 2017-03-28 14:11 | HHI.PR ---
Subjective Remarks 76 year old male with a history of ischemic cardiomyopathy, Afib, CHF presenting to the ED with worsening shortness of breath over the past several weeks to month however worse over the past 3 days without any chest pain. Patient endorses bilateral lower extremity edema. Patient is status post cardiac ablation 03/21/17. Chest x-ray on arrival with evidence of congestive heart failure. BNP 800+. Patient denies any GI bleed. States he has been compliant with his medications and denies any increase in salt intake 03-[address] [facility] [address] [address] FREY MEDICATIONS ADJUSTED CONTINUE TO DIJHON AM LABS 03-28 NOT URINATING WELL WILL ADD ZAROXOLYN 5MG PO BID KASHMIR HOSE AND SCDS AM LABS CONTINUE TO AGGRESSIVELY DICARLEENE ALETA RN AND PT AND FAMILY Objective Vitals Vital Signs Date Time Temp Pulse Resp B/P (MAP) Pulse Ox O2 Delivery O2 Flow Rate FiO2 03/28/17 08:47 Room Air 1.00 03/28/17 08:00 98.0 60 17 113/59 (77) 98 03/28/17 04:03 63 03/28/17 04:00 97.7 66 22 134/66 (88) 94 03/28/17 00:08 60 03/28/17 00:00 98.7 60 21 123/61 (81) 99 03/28/17 00:00 Room Air 03/27/17 22:41 Room Air 03/27/17 20:26 60 03/27/17 20:00 97.9 60 19 113/60 (77) 98 03/27/17 16:00 98.5 60 18 126/63 (84) 97 03/27/17 15:00 60 I/O 03/27/17 03/27/17 03/27/17 03/28/17 03/28/17 03/28/17 07:00 15:00 23:00 07:00 15:00 23:00 Intake Total 360 ml 1620 ml 200 ml 480 ml Output Total 600 ml 1700 ml 400 ml Balance -240 ml -80 ml -200 ml 480 ml Intake Oral 360 ml 1620 ml 200 ml 480 ml Output Urine Total 600 ml 1700 ml 400 ml # Voids 1 # Bowel Movements 0 1 1 Result Diagram: 03/28/17 1100 03/28/17 1100 Other Results Laboratory Tests Test 03/26/17 01:50 03/27/17 10:51 03/27/17 13:32 03/28/17 11:00 White Blood Count 8.3 TH/MM3 8.8 TH/MM3 8.9 TH/MM3 Red Blood Count 4.04 MIL/MM3 4.02 MIL/MM3 4.08 MIL/MM3 Hemoglobin 12.3 GM/DL 12.4 GM/DL 12.4 GM/DL Hematocrit 37.6 % 36.9 % 37.8 % Mean Corpuscular Volume 92.9 FL 91.8 FL 92.6 FL Mean Corpuscular Hemoglobin 30.4 PG 30.8 PG 30.5 PG Mean Corpuscular Hemoglobin Concent 32.7 % 33.5 % 32.9 % Red Cell Distribution Width 15.3 % 15.1 % 15.0 % Platelet Count 160 TH/MM3 163 TH/MM3 164 TH/MM3 Mean Platelet Volume 7.5 FL 7.3 FL 7.4 FL Neutrophils (%) (Auto) 75.6 % 81.3 % 78.9 % Lymphocytes (%) (Auto) 11.9 % 8.4 % 11.0 % Monocytes (%) (Auto) 11.3 % 9.1 % 9.0 % Eosinophils (%) (Auto) 0.8 % 0.8 % 0.7 % Basophils (%) (Auto) 0.4 % 0.4 % 0.4 % Neutrophils # (Auto) 6.3 TH/MM3 7.1 TH/MM3 7.0 TH/MM3 Lymphocytes # (Auto) 1.0 TH/MM3 0.7 TH/MM3 1.0 TH/MM3 Monocytes # (Auto) 0.9 TH/MM3 0.8 TH/MM3 0.8 TH/MM3 Eosinophils # (Auto) 0.1 TH/MM3 0.1 TH/MM3 0.1 TH/MM3 Basophils # (Auto) 0.0 TH/MM3 0.0 TH/MM3 0.0 TH/MM3 CBC Comment DIFF FINAL DIFF FINAL DIFF FINAL Differential Comment Prothrombin Time 17.0 SEC Prothromb Time International Ratio 1.7 RATIO Activated Partial Thromboplast Time 41.2 SEC Blood Urea Nitrogen 29 MG/DL 22 MG/DL 17 MG/DL Creatinine 1.60 MG/DL 1.46 MG/DL 1.29 MG/DL Random Glucose 133 MG/DL 189 MG/DL 184 MG/DL Total Protein 6.9 GM/DL 6.3 GM/DL Albumin 3.3 GM/DL 3.0 GM/DL Calcium Level 8.3 MG/DL 8.9 MG/DL 8.6 MG/DL Alkaline Phosphatase 126 U/L 109 U/L Aspartate Amino Transf (AST/SGOT) 31 U/L 24 U/L Alanine Aminotransferase (ALT/SGPT) 33 U/L 30 U/L Total Bilirubin 0.5 MG/DL 0.4 MG/DL Sodium Level 138 MEQ/L 138 MEQ/L 139 MEQ/L Potassium Level 3.9 MEQ/L 4.4 MEQ/L 3.9 MEQ/L Chloride Level 99 MEQ/L 100 MEQ/L 102 MEQ/L Carbon Dioxide Level 30.7 MEQ/L 27.0 MEQ/L 33.0 MEQ/L Anion Gap 8 MEQ/L 11 MEQ/L 4 MEQ/L Estimat Glomerular Filtration Rate 42 ML/MIN 47 ML/MIN 54 ML/MIN Troponin I 0.11 NG/ML B-Type Natriuretic Peptide 886 PG/ML 685 PG/ML Phosphorus Level 2.9 MG/DL Magnesium Level 2.4 MG/DL Free Thyroxine 1.33 NG/DL Thyroid Stimulating Hormone 3rd Gen 1.390 uIU/ML Imaging Last Impressions Chest X-Ray 03/26/17 0043 Signed Impressions: Service Date/Time: Sunday, March 26, 2017 00:55 - CONCLUSION: 1. Cardiomegaly and findings of congestive heart failure. 2. Bilateral effusions Ashutosh Read MD Objective Remarks GENERAL: This is a well-nourished, well-developed patient, in MILD distress. APPEARS UNCOMFORTABLE SKIN: No rashes, ecchymoses or lesions. Cool and dry. HEAD: Atraumatic. Normocephalic. No temporal or scalp tenderness. EYES: Pupils equal round and reactive. Extraocular motions intact. No scleral icterus. No injection or drainage. ENT: Nose without bleeding, purulent drainage or septal hematoma. Throat without erythema, tonsillar hypertrophy or exudate. Uvula midline. Airway patent. NECK: Trachea midline. No JVD or lymphadenopathy. Supple, nontender, no meningeal signs. CARDIOVASCULAR: Irregular Regular rate and rhythm without murmurs, gallops, or rubs. S1, S2 NO S3 OR S4 RESPIRATORY: DIMINISHED BREATH SOUNDS . Breath sounds equal bilaterally. No wheezes, FEW RALES AT BASES. GASTROINTESTINAL: Abdomen soft, non-tender, nondistended. No hepato-splenomegaly , or palpable masses. No guarding. MUSCULOSKELETAL: Extremities without clubbing, cyanosis; +4 BLE edema. No joint tenderness, effusion, or edema noted. No calf tenderness. Negative Homans sign bilaterally. NEUROLOGICAL: Awake and alert. Cranial nerves II through XII intact. Motor and sensory grossly within normal limits. Five out of 5 muscle strength in all muscle groups. Normal speech. INSIGHT AND JUDGEMENT ARE GOOD MOOD AND BEHAVIOR ARE APPROPRIATE Medications and IVs Current Medications Sodium Chloride (NS Flush) 2 ml UNSCH PRN IVF FLUSH AFTER USING IV ACCESS; Start 03/26/17 at 00:45; Stop 03/26/17 at 02:42; Status DC Furosemide (Lasix Inj) 40 mg ONCE ONCE IV PUSH Last administered on 03/26/17at 01:56; Start 03/26/17 at 01:30; Stop 03/26/17 at 01:31; Status DC Aspirin (Aspirin Chew) 324 mg ONCE ONCE CHEW Last administered on 03/26/17at 02 :40; Start 03/26/17 at 02:30; Stop 03/26/17 at 02:31; Status DC Sodium Chloride (NS Flush) 2 ml UNSCH PRN IV FLUSH FLUSH AFTER USING IV ACCESS ; Start 03/26/17 at 02:45 Sodium Chloride (NS Flush) 2 ml BID IV FLUSH Last administered on 03/28/17at 08: 44; Start 03/26/17 at 09:00 Naloxone HCl (Narcan Inj) 0.4 mg UNSCH PRN IV PUSH SEE LABEL COMMENTS; Start at 02:45 Furosemide (Lasix Inj) 40 mg BID@18 IV PUSH Last administered on 03/27/17at 09:21; Start 03/26/17 at 09:00; Stop 03/27/17 at 15:00; Status DC Potassium Chloride (KCl) 40 meq ONCE ONCE PO Last administered on 03/26/17at 03 :49; Start 03/26/17 at 02:45; Stop 03/26/17 at 02:46; Status DC Amiodarone HCl (Cordarone) 400 mg DAILY PO Last administered on 03/27/17at 09:21 ; Start 03/27/17 at 09:00; Stop 03/27/17 at 15:00; Status DC Atorvastatin Calcium (Lipitor) 80 mg HS PO Last administered on 03/27/17at 22:09 ; Start 03/26/17 at 21:00 Glipizide (Glucotrol) 5 mg DAILYAC PO Last administered on 03/28/17at 08:43; Start 03/27/17 at 08:00 Levetriacetam (Keppra) 500 mg BID PO Last administered on 03/28/17at 08:44; Start 03/26/17 at 21:00 Lisinopril (Prinivil) 10 mg DAILY PO Last administered on 03/27/17at 09:20; Start 03/27/17 at 09:00; Stop 03/27/17 at 15:04; Status DC Potassium Chloride (KCl) 20 meq Q12HR PO Last administered on 03/28/17at 08:43; Start 03/26/17 at 21:00 Rivaroxaban (Xarelto) 20 mg HS PO Last administered on 03/27/17at 22:09; Start 03/26/17 at 21:00 Metoprolol Succinate (Toprol Xl) 200 mg DAILY PO Last administered on at 08:43; Start 03/27/17 at 09:00 Pantoprazole Sodium (Protonix) 20 mg DAILY PO Last administered on 03/28/17at 08 :44; Start 03/27/17 at 09:00 Dextrose (D50w (Vial) Inj) 50 ml UNSCH PRN IV PUSH HYPOGLYCEMIA-SEE COMMENTS; Start 03/26/17 at 14:45 Glucagon (Glucagon Inj) 1 mg UNSCH PRN OTHER HYPOGLYCEMIA-SEE COMMENTS; Start 03/26/17 at 14:45 Insulin Aspart (NovoLOG SUPPLEMENTAL SCALE) 1 ACHS SLIDING SCALE SQ Last administered on 03/28/17at 12:00; Start 03/26/17 at 17:00 Amiodarone HCl (Cordarone) 200 mg DAILY PO Last administered on 03/28/17at 08:43 ; Start 03/28/17 at 09:00 Bumetanide (Bumetanide) 1 mg BID@,18 PO Last administered on 03/28/17at 08:44 ; Start 03/27/17 at 18:00 Sacubitril/ Valsartan (Entresto 49-51 Mg) 1 tab BID PO Last administered on 03/03at 08:43; Start 03/27/17 at 21:00 A/P Problem List: (1) Acute on chronic systolic and diastolic heart failure, NYHA class 3 ICD Code: I50.43 - Acute on chronic combined systolic (congestive) and diastolic (congestive) heart failure Assessment and Plan 76-year-old man with Acute on chronic systolic CHF exacerbation With x-ray noted and review by me with evidence of congestive heart failure Last 2D echo with EF 25% (01/21/17); may obtain Limited 2D echo Currently on IV BUMEX 1MG IV Q12 Resume BB -START ON ENTRESTO Consult cardiology for further management SEEN BY DR FREY ADD ZAROXOLYN 5MG PO BID Strict I's and O's Paroxysmal A. fib IN SINUS RHYTHM s/p recent cardiac ablation 03/21/17 Resume Xarelto, beta [place], amiodarone Diabetes type 2 Start ISS History of seizure disorder Resume Keppra Hyperlipidemia Resume statin DVT prophylaxis: Xarelto CONTINUE AGGRESSIVE DIURESIS - NOT AT GOAL WEIGHT ADD ZAROXOLYN 5MG PO BID Discharge Planning PENDING FLUID OVERLOAD IMPROVEMENT Anthony Minaya DO Mar 28, 2017 14:11
[2017-03-28 15:58] LABS: HEMOGLOBIN A1C 7.2 % (4.3-6.0)
[2017-03-28] MEDS: METOLAZONE 5 MG TAB PO SCH (17:11)
[2017-03-28] MEDS: ATORVASTATIN 80 MG TAB PO SCH (21:54)
[2017-03-28] MEDS: RIVAROXABAN 20 MG TAB PO SCH (21:54)
[2017-03-29] VITALS (8 sets, daily range): BP systolic 92–115; BP diastolic 51–69; PULSE 60–72; RESP 20; TEMP 97.6–98; O2SAT 92–96
[2017-03-29 07:37] LABS: AUTOMATED NEUTROPHIL # 7.6 TH/MM3 (1.8-7.7); BASOPHIL % 0.4 % (0.0-2.0); EOSINOPHIL # 0.1 TH/MM3 (0-0.4); EOSINOPHIL % 1.1 % (0.0-4.0); HEMATOCRIT 40.9 % (39.0-51.0); HEMOGLOBIN 13.6 GM/DL (13.0-17.0); LYMPH % 14.5 % (9.0-44.0); LYMPHOCYTE # 1.5 TH/MM3 (1.0-4.8); MEAN CELL VOLUME 91.4 FL (80.0-100.0); MEAN CORPUSCULAR HEMOGLOBIN 30.4 PG (27.0-34.0); MEAN CORPUSCULAR HGB CONC 33.3 % (32.0-36.0); MEAN PLATELET VOLUME 7.6 FL (7.0-11.0); MONO % 11.7 % (0.0-8.0); MONOCYTE # 1.2 TH/MM3 (0-0.9); NEUT % 72.3 % (16.0-70.0); PLATELET COUNT 179 TH/MM3 (150-450); RED BLOOD COUNT 4.47 MIL/MM3 (4.50-5.90); RED CELL DISTRIBUTION WIDTH 15.6 % (11.6-17.2); WHITE BLOOD COUNT 10.5 TH/MM3 (4.0-11.0)
[2017-03-29] MEDS: INSULIN ASPART SUPPLEMENTAL SCALE SQ SCH ×4 (08:00→21:18)
[2017-03-29 08:36] LABS: ALBUMIN 3.2 GM/DL (3.4-5.0); ALKALINE PHOSPHATASE 114 U/L (45-117); ALT (GPT) 29 U/L (12-78); AST (GOT) 28 U/L (15-37); BICARBONATE 29.6 MEQ/L (21.0-32.0); BLOOD UREA NITROGEN 18 MG/DL (7-18); CALCIUM 8.8 MG/DL (8.5-10.1); CHLORIDE 99 MEQ/L (98-107); CREATININE 1.27 MG/DL (0.60-1.30); GLOMERULAR FILTRATION RATE 55 ML/MIN (>89); GLUCOSE,RANDOM 100 MG/DL (74-106); MAGNESIUM 2.4 MG/DL (1.5-2.5); PHOSPHORUS 3.4 MG/DL (2.5-4.9); SODIUM (NA) 137 MEQ/L (136-145); TOTAL BILIRUBIN ADULT 0.7 MG/DL (0.2-1.0)
[2017-03-29] MEDS: SODIUM CHLORIDE 0.9% FLUSH 10 ML FLUSH IV FLUSH SCH ×2 (09:00→21:17)
[2017-03-29] MEDS: PANTOPRAZOLE SOD 20 MG DELAYED RELEASE TAB PO SCH (09:15)
[2017-03-29] MEDS: levETIRAcetam 500 MG TAB PO SCH ×2 (09:15→21:15)
[2017-03-29] MEDS: AMIODARONE 200 MG TAB PO SCH (09:16)
[2017-03-29] MEDS: BUMETANIDE 1 MG TAB PO SCH ×2 (09:16→17:00)
[2017-03-29] MEDS: POTASSIUM CHLORIDE 20 MEQ CONTROLLED RELEASE TAB PO SCH ×2 (09:16→21:16)
[2017-03-29] MEDS: SACUBITRIL/VALSARTAN 49 MG-51 MG TAB PO SCH ×2 (09:16→21:15)
[2017-03-29] MEDS: METOPROLOL SUCCINATE 50 MG EXTENDED RELEASE TAB PO SCH (09:16)
[2017-03-29] MEDS: glipiZIDE 5 MG TAB PO SCH (09:17)
[2017-03-29] MEDS: METOLAZONE 5 MG TAB PO SCH ×2 (09:44→17:00)
[2017-03-29] MEDS ORDERED: BUMETANIDE 1 MG TAB PO ONE (12:00)
--- NOTE | 2017-03-29 12:15 | HHI.PR ---
Subjective Remarks 76 year old male with a history of ischemic cardiomyopathy, Afib, CHF presenting to the ED with worsening shortness of breath over the past several weeks to month however worse over the past 3 days without any chest pain. Patient endorses bilateral lower extremity edema. Patient is status post cardiac ablation 03/21/17. Chest x-ray on arrival with evidence of congestive heart failure. BNP 800+. Patient denies any GI bleed. States he has been compliant with his medications and denies any increase in salt intake 03-[address] [facility] [address] [address] FREY MEDICATIONS ADJUSTED CONTINUE TO DIURESE AM LABS 03-28 NOT URINATING WELL WILL ADD ZAROXOLYN 5MG PO BID KASHMIR HOSE AND SCDS AM LABS CONTINUE TO AGGRESSIVELY DIURESE DW RN AND PT AND FAMILY 03-29 CHANGE TO BUMEX 2MG BID AND ZAROXOLYN 5MG BID AM LABS WEARING KASHMIR HOSE LEGS LESS SWOLLEN DW RN AND PT AND CM AND PHARMACY Objective Vitals Vital Signs Date Time Temp Pulse Resp B/P (MAP) Pulse Ox O2 Delivery O2 Flow Rate FiO2 03/29/17 04:00 60 03/29/17 04:00 98.0 72 20 110/58 (75) 96 03/29/17 00:00 97.6 60 20 115/69 (84) 95 03/29/17 00:00 60 03/28/17 20:00 60 03/28/17 20:00 98.3 90 21 107/63 (78) 96 03/28/17 20:00 Room Air 03/28/17 16:00 97.2 60 18 125/59 (81) 96 I/O 03/28/17 03/28/17 03/28/17 03/29/17 03/29/17 03/29/17 07:00 15:00 23:00 07:00 15:00 23:00 Intake Total 200 ml 480 ml 2280 ml 200 ml Output Total 400 ml 700 ml Balance -200 ml 480 ml 2280 ml -500 ml Intake Oral 200 ml 480 ml 2280 ml 200 ml Output Urine Total 400 ml 700 ml # Voids 1 4 # Bowel Movements 1 1 1 Result Diagram: 03/29/17 0620 03/29/17 0620 Other Results Laboratory Tests Test 03/27/17 10:51 03/27/17 13:32 03/28/17 11:00 1/13/18 06:20 Blood Urea Nitrogen 22 MG/DL 17 MG/DL 18 MG/DL Creatinine 1.46 MG/DL 1.29 MG/DL 1.27 MG/DL Random Glucose 189 MG/DL 184 MG/DL 100 MG/DL Calcium Level 8.9 MG/DL 8.6 MG/DL 8.8 MG/DL Sodium Level 138 MEQ/L 139 MEQ/L 137 MEQ/L Potassium Level 4.4 MEQ/L 3.9 MEQ/L 4.1 MEQ/L Chloride Level 100 MEQ/L 102 MEQ/L 99 MEQ/L Carbon Dioxide Level 27.0 MEQ/L 33.0 MEQ/L 29.6 MEQ/L Anion Gap 11 MEQ/L 4 MEQ/L 8 MEQ/L Estimat Glomerular Filtration Rate 47 ML/MIN 54 ML/MIN 55 ML/MIN White Blood Count 8.8 TH/MM3 8.9 TH/MM3 10.5 TH/MM3 Red Blood Count 4.02 MIL/MM3 4.08 MIL/MM3 4.47 MIL/MM3 Hemoglobin 12.4 GM/DL 12.4 GM/DL 13.6 GM/DL Hematocrit 36.9 % 37.8 % 40.9 % Mean Corpuscular Volume 91.8 FL 92.6 FL 91.4 FL Mean Corpuscular Hemoglobin 30.8 PG 30.5 PG 30.4 PG Mean Corpuscular Hemoglobin Concent 33.5 % 32.9 % 33.3 % Red Cell Distribution Width 15.1 % 15.0 % 15.6 % Platelet Count 163 TH/MM3 164 TH/MM3 179 TH/MM3 Mean Platelet Volume 7.3 FL 7.4 FL 7.6 FL Neutrophils (%) (Auto) 81.3 % 78.9 % 72.3 % Lymphocytes (%) (Auto) 8.4 % 11.0 % 14.5 % Monocytes (%) (Auto) 9.1 % 9.0 % 11.7 % Eosinophils (%) (Auto) 0.8 % 0.7 % 1.1 % Basophils (%) (Auto) 0.4 % 0.4 % 0.4 % Neutrophils # (Auto) 7.1 TH/MM3 7.0 TH/MM3 7.6 TH/MM3 Lymphocytes # (Auto) 0.7 TH/MM3 1.0 TH/MM3 1.5 TH/MM3 Monocytes # (Auto) 0.8 TH/MM3 0.8 TH/MM3 1.2 TH/MM3 Eosinophils # (Auto) 0.1 TH/MM3 0.1 TH/MM3 0.1 TH/MM3 Basophils # (Auto) 0.0 TH/MM3 0.0 TH/MM3 0.0 TH/MM3 CBC Comment DIFF FINAL DIFF FINAL DIFF FINAL Differential Comment Total Protein 6.3 GM/DL 7.0 GM/DL Albumin 3.0 GM/DL 3.2 GM/DL Phosphorus Level 2.9 MG/DL 3.4 MG/DL Magnesium Level 2.4 MG/DL 2.4 MG/DL Alkaline Phosphatase 109 U/L 114 U/L Aspartate Amino Transf (AST/SGOT) 24 U/L 28 U/L Alanine Aminotransferase (ALT/SGPT) 30 U/L 29 U/L Total Bilirubin 0.4 MG/DL 0.7 MG/DL Hemoglobin A1c 7.2 % B-Type Natriuretic Peptide 685 PG/ML 322 PG/ML Free Thyroxine 1.33 NG/DL Thyroid Stimulating Hormone 3rd Gen 1.390 uIU/ML Imaging Last Impressions Chest X-Ray 03/26/17 0043 Signed Impressions: Service Date/Time: Sunday, March 26, 2017 00:55 - CONCLUSION: 1. Cardiomegaly and findings of congestive heart failure. 2. Bilateral effusions Ashutosh Read MD Objective Remarks GENERAL: This is a well-nourished, well-developed patient, in MILD distress. APPEARS UNCOMFORTABLE SKIN: No rashes, ecchymoses or lesions. Cool and dry. HEAD: Atraumatic. Normocephalic. No temporal or scalp tenderness. EYES: Pupils equal round and reactive. Extraocular motions intact. No scleral icterus. No injection or drainage. ENT: Nose without bleeding, purulent drainage or septal hematoma. Throat without erythema, tonsillar hypertrophy or exudate. Uvula midline. Airway patent. NECK: Trachea midline. No JVD or lymphadenopathy. Supple, nontender, no meningeal signs. CARDIOVASCULAR: Irregular Regular rate and rhythm without murmurs, gallops, or rubs. S1, S2 NO S3 OR S4 RESPIRATORY: DIMINISHED BREATH SOUNDS . Breath sounds equal bilaterally. No wheezes, FEW RALES AT BASES. GASTROINTESTINAL: Abdomen soft, non-tender, nondistended. No hepato-splenomegaly , or palpable masses. No guarding. MUSCULOSKELETAL: Extremities without clubbing, cyanosis; +3 BLE edema. No joint tenderness, effusion, or edema noted. No calf tenderness. Negative Homans sign bilaterally. NEUROLOGICAL: Awake and alert. Cranial nerves II through XII intact. Motor and sensory grossly within normal limits. Five out of 5 muscle strength in all muscle groups. Normal speech. INSIGHT AND JUDGEMENT ARE GOOD MOOD AND BEHAVIOR ARE APPROPRIATE Procedures NONE Medications and IVs Current Medications Sodium Chloride (NS Flush) 2 ml UNSCH PRN IVF FLUSH AFTER USING IV ACCESS; Start 03/26/17 at 00:45; Stop 03/26/17 at 02:42; Status DC Furosemide (Lasix Inj) 40 mg ONCE ONCE IV PUSH Last administered on 03/26/17at 01:56; Start 03/26/17 at 01:30; Stop 03/26/17 at 01:31; Status DC Aspirin (Aspirin Chew) 324 mg ONCE ONCE CHEW Last administered on 03/26/17at 02 :40; Start 03/26/17 at 02:30; Stop 03/26/17 at 02:31; Status DC Sodium Chloride (NS Flush) 2 ml UNSCH PRN IV FLUSH FLUSH AFTER USING IV ACCESS ; Start 03/26/17 at 02:45 Sodium Chloride (NS Flush) 2 ml BID IV FLUSH Last administered on 03/29/17at 09: 00; Start 03/26/17 at 09:00 Naloxone HCl (Narcan Inj) 0.4 mg UNSCH PRN IV PUSH SEE LABEL COMMENTS; Start at 02:45 Furosemide (Lasix Inj) 40 mg BID@18 IV PUSH Last administered on 03/27/17at 09:21; Start 03/26/17 at 09:00; Stop 03/27/17 at 15:00; Status DC Potassium Chloride (KCl) 40 meq ONCE ONCE PO Last administered on 03/26/17at 03 :49; Start 03/26/17 at 02:45; Stop 03/26/17 at 02:46; Status DC Amiodarone HCl (Cordarone) 400 mg DAILY PO Last administered on 03/27/17at 09:21 ; Start 03/27/17 at 09:00; Stop 03/27/17 at 15:00; Status DC Atorvastatin Calcium (Lipitor) 80 mg HS PO Last administered on 03/28/17at 21:54 ; Start 03/26/17 at 21:00 Glipizide (Glucotrol) 5 mg DAILYAC PO Last administered on 03/29/17at 09:17; Start 03/27/17 at 08:00 Levetriacetam (Keppra) 500 mg BID PO Last administered on 03/29/17at 09:15; Start 03/26/17 at 21:00 Lisinopril (Prinivil) 10 mg DAILY PO Last administered on 03/27/17at 09:20; Start 03/27/17 at 09:00; Stop 03/27/17 at 15:04; Status DC Potassium Chloride (KCl) 20 meq Q12HR PO Last administered on 03/29/17at 09:16; Start 03/26/17 at 21:00 Rivaroxaban (Xarelto) 20 mg HS PO Last administered on 03/28/17at 21:54; Start 03/26/17 at 21:00 Metoprolol Succinate (Toprol Xl) 200 mg DAILY PO Last administered on at 09:16; Start 03/27/17 at 09:00 Pantoprazole Sodium (Protonix) 20 mg DAILY PO Last administered on 03/29/17at 09 :15; Start 03/27/17 at 09:00 Dextrose (D50w (Vial) Inj) 50 ml UNSCH PRN IV PUSH HYPOGLYCEMIA-SEE COMMENTS; Start 03/26/17 at 14:45 Glucagon (Glucagon Inj) 1 mg UNSCH PRN OTHER HYPOGLYCEMIA-SEE COMMENTS; Start 03/26/17 at 14:45 Insulin Aspart (NovoLOG SUPPLEMENTAL SCALE) 1 ACHS SLIDING SCALE SQ Last administered on 03/29/17at 08:00; Start 03/26/17 at 17:00 Amiodarone HCl (Cordarone) 200 mg DAILY PO Last administered on 03/29/17at 09:16 ; Start 03/28/17 at 09:00 Bumetanide (Bumetanide) 1 mg BID@ PO Last administered on 03/29/17at 09:16 ; Start 03/27/17 at 18:00; Stop 03/29/17 at 11:31; Status DC Sacubitril/ Valsartan (Entresto 49-51 Mg) 1 tab BID PO Last administered on at 09:16; Start 03/27/17 at 21:00 Metolazone (Zaroxolyn) 5 mg BID@0900,1800 PO Last administered on 03/29/17at 09: 44; Start 03/28/17 at 18:00 Bumetanide (Bumetanide) 2 mg BID@09,18 PO ; Start 03/29/17 at 18:00 Bumetanide (Bumetanide) 1 mg ONCE ONCE PO ; Start 03/29/17 at 12:00; Stop 03/29 at 12:01; Status DC A/P Problem List: (1) Acute on chronic systolic and diastolic heart failure, NYHA class 3 ICD Code: I50.43 - Acute on chronic combined systolic (congestive) and diastolic (congestive) heart failure Assessment and Plan 76-year-old man with Acute on chronic systolic CHF exacerbation With x-ray noted and review by me with evidence of congestive heart failure Last 2D echo with EF 25% (01/21/17); may obtain Limited 2D echo Currently on BUMEX 2MG IV Q12 Resume BB -START ON ENTRESTO Consult cardiology for further management SEEN BY DR FREY ADD ZAROXOLYN 5MG PO BID Strict I's and O's Paroxysmal A. fib IN SINUS RHYTHM s/p recent cardiac ablation 03/21/17 Resume Xarelto, beta [place], amiodarone Diabetes type 2 Start ISS History of seizure disorder Resume Keppra Hyperlipidemia Resume statin DVT prophylaxis: Xarelto CONTINUE AGGRESSIVE DIURESIS - NOT AT GOAL WEIGHT ADD ZAROXOLYN 5MG PO BID AM LABS KASHMIR KING Discharge Planning PENDING FLUID OVERLOAD IMPROVEMENT Anthony Minaya DO Mar 29, 2017 12:15
[2017-03-29] MEDS: RIVAROXABAN 20 MG TAB PO SCH (21:15)
[2017-03-29] MEDS: ATORVASTATIN 80 MG TAB PO SCH (21:16)
[2017-03-30] VITALS (10 sets, daily range): BP systolic 93–113; BP diastolic 51–57; PULSE 60–68; RESP 16–20; TEMP 97.5–98.3; O2SAT 93–95
[2017-03-30] MEDS: INSULIN ASPART SUPPLEMENTAL SCALE SQ SCH ×4 (07:44→22:53)
[2017-03-30] MEDS: levETIRAcetam 500 MG TAB PO SCH ×2 (08:54→22:50)
[2017-03-30] MEDS: glipiZIDE 5 MG TAB PO SCH (08:54)
[2017-03-30] MEDS: POTASSIUM CHLORIDE 20 MEQ CONTROLLED RELEASE TAB PO SCH ×2 (08:55→22:51)
[2017-03-30] MEDS: SACUBITRIL/VALSARTAN 49 MG-51 MG TAB PO SCH ×2 (08:55→22:50)
[2017-03-30] MEDS: PANTOPRAZOLE SOD 20 MG DELAYED RELEASE TAB PO SCH (08:55)
[2017-03-30] MEDS: BUMETANIDE 1 MG TAB PO SCH (08:55)
[2017-03-30] MEDS: SODIUM CHLORIDE 0.9% FLUSH 10 ML FLUSH IV FLUSH SCH ×2 (08:55→22:53)
[2017-03-30] MEDS: AMIODARONE 200 MG TAB PO SCH (08:55)
[2017-03-30] MEDS: METOPROLOL SUCCINATE 50 MG EXTENDED RELEASE TAB PO SCH (08:56)
[2017-03-30] MEDS: METOLAZONE 5 MG TAB PO SCH (08:57)
[2017-03-30 13:16] LABS: AUTOMATED NEUTROPHIL # 9.3 TH/MM3 (1.8-7.7); BASOPHIL # 0.1 TH/MM3 (0-0.2); BASOPHIL % 0.4 % (0.0-2.0); EOSINOPHIL # 0.1 TH/MM3 (0-0.4); EOSINOPHIL % 0.6 % (0.0-4.0); HEMATOCRIT 40.6 % (39.0-51.0); HEMOGLOBIN 13.4 GM/DL (13.0-17.0); LYMPH % 11.2 % (9.0-44.0); LYMPHOCYTE # 1.3 TH/MM3 (1.0-4.8); MEAN CELL VOLUME 90.9 FL (80.0-100.0); MEAN CORPUSCULAR HEMOGLOBIN 30.1 PG (27.0-34.0); MEAN CORPUSCULAR HGB CONC 33.1 % (32.0-36.0); MEAN PLATELET VOLUME 7.1 FL (7.0-11.0); MONO % 10.2 % (0.0-8.0); MONOCYTE # 1.2 TH/MM3 (0-0.9); NEUT % 77.6 % (16.0-70.0); PLATELET COUNT 208 TH/MM3 (150-450); RED BLOOD COUNT 4.46 MIL/MM3 (4.50-5.90); RED CELL DISTRIBUTION WIDTH 15.1 % (11.6-17.2)
[2017-03-30 13:45] LABS: ALKALINE PHOSPHATASE 110 U/L (45-117); ALT (GPT) 30 U/L (12-78); AST (GOT) 31 U/L (15-37); BICARBONATE 31.9 MEQ/L (21.0-32.0); BLOOD UREA NITROGEN 29 MG/DL (7-18); CALCIUM 9.2 MG/DL (8.5-10.1); CHLORIDE 93 MEQ/L (98-107); CREATININE 1.81 MG/DL (0.60-1.30); GLOMERULAR FILTRATION RATE 36 ML/MIN (>89); GLUCOSE,RANDOM 203 MG/DL (74-106); MAGNESIUM 2.1 MG/DL (1.5-2.5); PHOSPHORUS 4.2 MG/DL (2.5-4.9); SODIUM (NA) 132 MEQ/L (136-145); TOTAL BILIRUBIN ADULT 0.5 MG/DL (0.2-1.0); TOTAL PROTEIN 6.7 GM/DL (6.4-8.2)
--- NOTE | 2017-03-30 15:54 | HHI.PR ---
Subjective Remarks 76 year old male with a history of ischemic cardiomyopathy, Afib, CHF presenting to the ED with worsening shortness of breath over the past several weeks to month however worse over the past 3 days without any chest pain. Patient endorses bilateral lower extremity edema. Patient is status post cardiac ablation 03/21/17. Chest x-ray on arrival with evidence of congestive heart failure. BNP 800+. Patient denies any GI bleed. States he has been compliant with his medications and denies any increase in salt intake 03-[address] FREY MEDICATIONS ADJUSTED CONTINUE TO DIURESE AM LABS 03-28 NOT URINATING WELL WILL ADD ZAROXOLYN 5MG PO BID KASHMIR HOSE AND SCDS AM LABS CONTINUE TO AGGRESSIVELY DIURESE DW RN AND PT AND FAMILY 03-29 CHANGE TO BUMEX 2MG BID AND ZAROXOLYN 5MG BID AM LABS WEARING KASHMIR HOSE LEGS LESS SWOLLEN DW RN AND PT AND CM AND PHARMACY 03-30 LEGS LOOK BETTER RENALLY INSUFFICIENT ADJUST MEDS DW RN AND PT AM LABS HOLD BUMEX HOLD ZAROXOLYN DECREASE TOPROL TO 150MG DAILY Objective Vitals Vital Signs Date Time Temp Pulse Resp B/P (MAP) Pulse Ox O2 Delivery O2 Flow Rate FiO2 03/30/17 12:00 61 03/30/17 12:00 97.7 60 20 113/56 (75) 95 03/30/17 08:15 Room Air 03/30/17 08:00 97.5 60 20 98/57 (71) 95 03/30/17 07:59 60 03/30/17 04:00 97.5 60 18 97/54 (68) 93 03/30/17 03:48 60 03/30/17 00:00 97.5 63 18 112/52 (72) 93 03/30/17 00:00 Room Air 03/29/17 23:44 60 03/29/17 21:21 103/56 (72) 03/29/17 20:00 97.9 60 20 92/51 (65) 92 03/29/17 20:00 Room Air 03/29/17 17:04 Room Air 03/29/17 16:00 98.0 60 20 109/56 (73) 95 I/O 1/13/18 1/13/18 1/13/18 1/14/18 1/14/18 1/14/18 07:00 15:00 23:00 07:00 15:00 23:00 Intake Total 200 ml 240 ml Output Total 700 ml Balance -500 ml 240 ml Intake Oral 200 ml 240 ml Output Urine Total 700 ml # Voids 4 5 # Bowel Movements 1 2 Result Diagram: 03/30/17 1303 03/30/17 1303 Other Results Laboratory Tests Test 03/28/17 11:00 03/29/17 06:20 03/30/17 13:03 White Blood Count 8.9 TH/MM3 10.5 TH/MM3 12.0 TH/MM3 Red Blood Count 4.08 MIL/MM3 4.47 MIL/MM3 4.46 MIL/MM3 Hemoglobin 12.4 GM/DL 13.6 GM/DL 13.4 GM/DL Hematocrit 37.8 % 40.9 % 40.6 % Mean Corpuscular Volume 92.6 FL 91.4 FL 90.9 FL Mean Corpuscular Hemoglobin 30.5 PG 30.4 PG 30.1 PG Mean Corpuscular Hemoglobin Concent 32.9 % 33.3 % 33.1 % Red Cell Distribution Width 15.0 % 15.6 % 15.1 % Platelet Count 164 TH/MM3 179 TH/MM3 208 TH/MM3 Mean Platelet Volume 7.4 FL 7.6 FL 7.1 FL Neutrophils (%) (Auto) 78.9 % 72.3 % 77.6 % Lymphocytes (%) (Auto) 11.0 % 14.5 % 11.2 % Monocytes (%) (Auto) 9.0 % 11.7 % 10.2 % Eosinophils (%) (Auto) 0.7 % 1.1 % 0.6 % Basophils (%) (Auto) 0.4 % 0.4 % 0.4 % Neutrophils # (Auto) 7.0 TH/MM3 7.6 TH/MM3 9.3 TH/MM3 Lymphocytes # (Auto) 1.0 TH/MM3 1.5 TH/MM3 1.3 TH/MM3 Monocytes # (Auto) 0.8 TH/MM3 1.2 TH/MM3 1.2 TH/MM3 Eosinophils # (Auto) 0.1 TH/MM3 0.1 TH/MM3 0.1 TH/MM3 Basophils # (Auto) 0.0 TH/MM3 0.0 TH/MM3 0.1 TH/MM3 CBC Comment DIFF FINAL DIFF FINAL DIFF FINAL Differential Comment Blood Urea Nitrogen 17 MG/DL 18 MG/DL 29 MG/DL Creatinine 1.29 MG/DL 1.27 MG/DL 1.81 MG/DL Random Glucose 184 MG/DL 100 MG/DL 203 MG/DL Total Protein 6.3 GM/DL 7.0 GM/DL 6.7 GM/DL Albumin 3.0 GM/DL 3.2 GM/DL 3.0 GM/DL Calcium Level 8.6 MG/DL 8.8 MG/DL 9.2 MG/DL Phosphorus Level 2.9 MG/DL 3.4 MG/DL 4.2 MG/DL Magnesium Level 2.4 MG/DL 2.4 MG/DL 2.1 MG/DL Alkaline Phosphatase 109 U/L 114 U/L 110 U/L Aspartate Amino Transf (AST/SGOT) 24 U/L 28 U/L 31 U/L Alanine Aminotransferase (ALT/SGPT) 30 U/L 29 U/L 30 U/L Total Bilirubin 0.4 MG/DL 0.7 MG/DL 0.5 MG/DL Sodium Level 139 MEQ/L 137 MEQ/L 132 MEQ/L Potassium Level 3.9 MEQ/L 4.1 MEQ/L 4.0 MEQ/L Chloride Level 102 MEQ/L 99 MEQ/L 93 MEQ/L Carbon Dioxide Level 33.0 MEQ/L 29.6 MEQ/L 31.9 MEQ/L Anion Gap 4 MEQ/L 8 MEQ/L 7 MEQ/L Estimat Glomerular Filtration Rate 54 ML/MIN 55 ML/MIN 36 ML/MIN Hemoglobin A1c 7.2 % B-Type Natriuretic Peptide 685 PG/ML 322 PG/ML Free Thyroxine 1.33 NG/DL Thyroid Stimulating Hormone 3rd Gen 1.390 uIU/ML Imaging Last Impressions Chest X-Ray 03/26/17 0043 Signed Impressions: Service Date/Time: Sunday, March 26, 2017 00:55 - CONCLUSION: 1. Cardiomegaly and findings of congestive heart failure. 2. Bilateral effusions Ashutosh Read MD Objective Remarks GENERAL: This is a well-nourished, well-developed patient, in MILD distress. APPEARS UNCOMFORTABLE SKIN: No rashes, ecchymoses or lesions. Cool and dry. HEAD: Atraumatic. Normocephalic. No temporal or scalp tenderness. EYES: Pupils equal round and reactive. Extraocular motions intact. No scleral icterus. No injection or drainage. ENT: Nose without bleeding, purulent drainage or septal hematoma. Throat without erythema, tonsillar hypertrophy or exudate. Uvula midline. Airway patent. NECK: Trachea midline. No JVD or lymphadenopathy. Supple, nontender, no meningeal signs. CARDIOVASCULAR: Irregular Regular rate and rhythm without murmurs, gallops, or rubs. S1, S2 NO S3 OR S4 RESPIRATORY: DIMINISHED BREATH SOUNDS . Breath sounds equal bilaterally. No wheezes, FEW RALES AT BASES. GASTROINTESTINAL: Abdomen soft, non-tender, nondistended. No hepato-splenomegaly , or palpable masses. No guarding. MUSCULOSKELETAL: Extremities without clubbing, cyanosis; +3 BLE edema. No joint tenderness, effusion, or edema noted. No calf tenderness. Negative Homans sign bilaterally. NEUROLOGICAL: Awake and alert. Cranial nerves II through XII intact. Motor and sensory grossly within normal limits. Five out of 5 muscle strength in all muscle groups. Normal speech. INSIGHT AND JUDGEMENT ARE GOOD MOOD AND BEHAVIOR ARE APPROPRIATE Procedures NONE Medications and IVs Current Medications Sodium Chloride (NS Flush) 2 ml UNSCH PRN IVF FLUSH AFTER USING IV ACCESS; Start 03/26/17 at 00:45; Stop 03/26/17 at 02:42; Status DC Furosemide (Lasix Inj) 40 mg ONCE ONCE IV PUSH Last administered on 03/26/17at 01:56; Start 03/26/17 at 01:30; Stop 03/26/17 at 01:31; Status DC Aspirin (Aspirin Chew) 324 mg ONCE ONCE CHEW Last administered on 03/26/17at 02 :40; Start 03/26/17 at 02:30; Stop 03/26/17 at 02:31; Status DC Sodium Chloride (NS Flush) 2 ml UNSCH PRN IV FLUSH FLUSH AFTER USING IV ACCESS ; Start 03/26/17 at 02:45 Sodium Chloride (NS Flush) 2 ml BID IV FLUSH Last administered on 03/30/17at 08: 55; Start 03/26/17 at 09:00 Naloxone HCl (Narcan Inj) 0.4 mg UNSCH PRN IV PUSH SEE LABEL COMMENTS; Start at 02:45 Furosemide (Lasix Inj) 40 mg BID@18 IV PUSH Last administered on 03/27/17at 09:21; Start 03/26/17 at 09:00; Stop 03/27/17 at 15:00; Status DC Potassium Chloride (KCl) 40 meq ONCE ONCE PO Last administered on 03/26/17at 03 :49; Start 03/26/17 at 02:45; Stop 03/26/17 at 02:46; Status DC Amiodarone HCl (Cordarone) 400 mg DAILY PO Last administered on 03/27/17at 09:21 ; Start 03/27/17 at 09:00; Stop 03/27/17 at 15:00; Status DC Atorvastatin Calcium (Lipitor) 80 mg HS PO Last administered on 03/29/17at 21:16 ; Start 03/26/17 at 21:00 Glipizide (Glucotrol) 5 mg DAILYAC PO Last administered on 03/30/17at 08:54; Start 03/27/17 at 08:00 Levetriacetam (Keppra) 500 mg BID PO Last administered on 03/30/17at 08:54; Start 03/26/17 at 21:00 Lisinopril (Prinivil) 10 mg DAILY PO Last administered on 03/27/17at 09:20; Start 03/27/17 at 09:00; Stop 03/27/17 at 15:04; Status DC Potassium Chloride (KCl) 20 meq Q12HR PO Last administered on 03/30/17at 08:55; Start 03/26/17 at 21:00 Rivaroxaban (Xarelto) 20 mg HS PO Last administered on 03/29/17at 21:15; Start 03/26/17 at 21:00 Metoprolol Succinate (Toprol Xl) 200 mg DAILY PO Last administered on at 09:16; Start 03/27/17 at 09:00 Pantoprazole Sodium (Protonix) 20 mg DAILY PO Last administered on 03/30/17at 08 :55; Start 03/27/17 at 09:00 Dextrose (D50w (Vial) Inj) 50 ml UNSCH PRN IV PUSH HYPOGLYCEMIA-SEE COMMENTS; Start 03/26/17 at 14:45 Glucagon (Glucagon Inj) 1 mg UNSCH PRN OTHER HYPOGLYCEMIA-SEE COMMENTS; Start 03/26/17 at 14:45 Insulin Aspart (NovoLOG SUPPLEMENTAL SCALE) 1 ACHS SLIDING SCALE SQ Last administered on 03/30/17at 12:18; Start 03/26/17 at 17:00 Amiodarone HCl (Cordarone) 200 mg DAILY PO Last administered on 03/30/17at 08:55 ; Start 03/28/17 at 09:00 Bumetanide (Bumetanide) 1 mg BID@09,18 PO Last administered on 03/29/17at 09:16 ; Start 03/27/17 at 18:00; Stop 03/29/17 at 11:31; Status DC Sacubitril/ Valsartan (Entresto 49-51 Mg) 1 tab BID PO Last administered on at 08:55; Start 03/27/17 at 21:00 Metolazone (Zaroxolyn) 5 mg BID@0900,1800 PO Last administered on 03/30/17at 08: 57; Start 03/28/17 at 18:00 Bumetanide (Bumetanide) 2 mg BID@09,18 PO Last administered on 03/30/17at 08:55 ; Start 03/29/17 at 18:00 Bumetanide (Bumetanide) 1 mg ONCE ONCE PO Last administered on 03/29/17at 12:20 ; Start 03/29/17 at 12:00; Stop 03/29/17 at 12:01; Status DC A/P Problem List: (1) Acute on chronic systolic and diastolic heart failure, NYHA class 3 ICD Code: I50.43 - Acute on chronic combined systolic (congestive) and diastolic (congestive) heart failure Assessment and Plan 76-year-old man with Acute on chronic systolic CHF exacerbation With x-ray noted and review by me with evidence of congestive heart failure Last 2D echo with EF 25% (01/21/17); may obtain Limited 2D echo Currently on BUMEX 2MG PO Q12- HOLD Resume BB -START ON ENTRESTO Consult cardiology for further management SEEN BY DR FREY ADD ZAROXOLYN 5MG PO BID- STOP THIS Strict I's and O's Paroxysmal A. fib IN SINUS RHYTHM s/p recent cardiac ablation 03/21/17 Resume Xarelto, beta austin, amiodarone DECREASE TOPROL XL TO 150MG Diabetes type 2 Start ISS History of seizure disorder Resume Keppra Hyperlipidemia Resume statin DVT prophylaxis: Xarelto CONTINUE AGGRESSIVE DIURESIS - NOT AT GOAL WEIGHT ADD ZAROXOLYN 5MG PO BID-- WILL HOLD AM LABS KASHMIR KING Discharge Planning PENDING FLUID OVERLOAD IMPROVEMENT Anthony Minaya DO Mar 30, 2017 15:54
[2017-03-30] MEDS ORDERED: BUMETANIDE 1 MG TAB PO SCH (18:00)
[2017-03-30] MEDS: RIVAROXABAN 20 MG TAB PO SCH (22:50)
[2017-03-30] MEDS: ATORVASTATIN 80 MG TAB PO SCH (22:50)
[2017-03-31 00:32] VITALS: BP 101/54; PULSE 61; RESP 18; TEMP 98.2; O2SAT 96
[2017-03-31 03:46] VITALS: PULSE 60
[2017-03-31 04:00] VITALS: BP 102/56; PULSE 62; RESP 18; TEMP 97.6; O2SAT 92
[2017-03-31 05:49] LABS: AUTOMATED NEUTROPHIL # 8.8 TH/MM3 (1.8-7.7); BASOPHIL # 0.1 TH/MM3 (0-0.2); BASOPHIL % 0.6 % (0.0-2.0); EOSINOPHIL # 0.2 TH/MM3 (0-0.4); EOSINOPHIL % 1.6 % (0.0-4.0); HEMATOCRIT 40.6 % (39.0-51.0); HEMOGLOBIN 13.9 GM/DL (13.0-17.0); LYMPH % 14.8 % (9.0-44.0); LYMPHOCYTE # 1.8 TH/MM3 (1.0-4.8); MEAN CELL VOLUME 91.1 FL (80.0-100.0); MEAN CORPUSCULAR HEMOGLOBIN 31.2 PG (27.0-34.0); MEAN CORPUSCULAR HGB CONC 34.2 % (32.0-36.0); MEAN PLATELET VOLUME 7.5 FL (7.0-11.0); MONO % 9.3 % (0.0-8.0); MONOCYTE # 1.1 TH/MM3 (0-0.9); NEUT % 73.7 % (16.0-70.0); PLATELET COUNT 229 TH/MM3 (150-450); RED BLOOD COUNT 4.46 MIL/MM3 (4.50-5.90); RED CELL DISTRIBUTION WIDTH 15.5 % (11.6-17.2); WHITE BLOOD COUNT 11.9 TH/MM3 (4.0-11.0)
[2017-03-31 05:52] LABS: ALBUMIN 3.1 GM/DL (3.4-5.0); ALT (GPT) 30 U/L (12-78); AST (GOT) 31 U/L (15-37); BICARBONATE 29.6 MEQ/L (21.0-32.0); BLOOD UREA NITROGEN 32 MG/DL (7-18); CALCIUM 9.3 MG/DL (8.5-10.1); CHLORIDE 96 MEQ/L (98-107); CREATININE 1.63 MG/DL (0.60-1.30); GLOMERULAR FILTRATION RATE 41 ML/MIN (>89); GLUCOSE,RANDOM 121 MG/DL (74-106); MAGNESIUM 2.2 MG/DL (1.5-2.5); PHOSPHORUS 4.6 MG/DL (2.5-4.9); SODIUM (NA) 133 MEQ/L (136-145)
[2017-03-31 05:54] LABS: ALKALINE PHOSPHATASE 109 U/L (45-117); TOTAL BILIRUBIN ADULT 0.5 MG/DL (0.2-1.0); TOTAL PROTEIN 6.9 GM/DL (6.4-8.2)
[2017-03-31 08:00] VITALS: BP 95/52; PULSE 61; PULSE 65; RESP 17; TEMP 97.3; O2SAT 95
[2017-03-31] MEDS: INSULIN ASPART SUPPLEMENTAL SCALE SQ SCH ×2 (08:00→13:03)
[2017-03-31] MEDS: levETIRAcetam 500 MG TAB PO SCH (08:29)
[2017-03-31] MEDS: PANTOPRAZOLE SOD 20 MG DELAYED RELEASE TAB PO SCH (08:29)
[2017-03-31] MEDS: glipiZIDE 5 MG TAB PO SCH (08:29)
[2017-03-31] MEDS: SODIUM CHLORIDE 0.9% FLUSH 10 ML FLUSH IV FLUSH SCH (08:30)
[2017-03-31] MEDS: SACUBITRIL/VALSARTAN 49 MG-51 MG TAB PO SCH (08:30)
[2017-03-31] MEDS: AMIODARONE 200 MG TAB PO SCH (08:30)
[2017-03-31] MEDS: POTASSIUM CHLORIDE 20 MEQ CONTROLLED RELEASE TAB PO SCH (08:30)
[2017-03-31] MEDS ORDERED: METOPROLOL SUCCINATE 50 MG EXTENDED RELEASE TAB PO SCH (09:00)
--- NOTE | 2017-03-31 11:37 | HHI.PR ---
Subjective Remarks 76 year old male with a history of ischemic cardiomyopathy, Afib, CHF presenting to the ED with worsening shortness of breath over the past several weeks to month however worse over the past 3 days without any chest pain. Patient endorses bilateral lower extremity edema. Patient is status post cardiac ablation 03/21/17. Chest x-ray on arrival with evidence of congestive heart failure. BNP 800+. Patient denies any GI bleed. States he has been compliant with his medications and denies any increase in salt intake 03-[address] FREY MEDICATIONS ADJUSTED CONTINUE TO DIURESE AM LABS 03-28 NOT URINATING WELL WILL ADD ZAROXOLYN 5MG PO BID KASHMIR HOSE AND SCDS AM LABS CONTINUE TO AGGRESSIVELY DIURESE DW RN AND PT AND FAMILY 03-29 CHANGE TO BUMEX 2MG BID AND ZAROXOLYN 5MG BID AM LABS WEARING KASHMIR HOSE LEGS LESS SWOLLEN DW RN AND PT AND CM AND PHARMACY 03-30 LEGS LOOK BETTER RENALLY INSUFFICIENT ADJUST MEDS DW RN AND PT AM LABS HOLD BUMEX HOLD ZAROXOLYN DECREASE TOPROL TO 150MG DAILY 03-31 DOING WELL WANTS TO GO HOME WILL ADJUST MEDICATIONS DC TO HOME TODAY DW RN AND CM AND PT Objective Vitals Vital Signs Date Time Temp Pulse Resp B/P (MAP) Pulse Ox O2 Delivery O2 Flow Rate FiO2 03/31/17 08:00 97.3 65 17 95/52 (66) 95 03/31/17 04:00 97.6 62 18 102/56 (71) 92 03/31/17 03:46 60 03/31/17 00:32 98.2 61 18 101/54 (70) 96 03/30/17 23:45 60 03/30/17 20:00 98.1 60 16 96/53 (67) 95 03/30/17 20:00 Room Air 03/30/17 19:48 68 03/30/17 16:00 98.3 60 20 93/51 (65) 95 03/30/17 16:00 Room Air 03/30/17 12:00 61 03/30/17 12:00 97.7 60 20 113/56 (75) 95 03/30/17 12:00 Room Air I/O 03/30/17 03/30/17 03/30/17 03/31/17 03/31/17 03/31/17 07:00 15:00 23:00 07:00 15:00 23:00 Intake Total 720 ml Balance 720 ml Intake Oral 720 ml # Voids 5 4 # Bowel Movements 1 Result Diagram: 03/31/17 0505 03/31/17 0505 Other Results Laboratory Tests Test 03/29/17 06:20 03/30/17 13:03 03/31/17 05:05 White Blood Count 10.5 TH/MM3 12.0 TH/MM3 11.9 TH/MM3 Red Blood Count 4.47 MIL/MM3 4.46 MIL/MM3 4.46 MIL/MM3 Hemoglobin 13.6 GM/DL 13.4 GM/DL 13.9 GM/DL Hematocrit 40.9 % 40.6 % 40.6 % Mean Corpuscular Volume 91.4 FL 90.9 FL 91.1 FL Mean Corpuscular Hemoglobin 30.4 PG 30.1 PG 31.2 PG Mean Corpuscular Hemoglobin Concent 33.3 % 33.1 % 34.2 % Red Cell Distribution Width 15.6 % 15.1 % 15.5 % Platelet Count 179 TH/MM3 208 TH/MM3 229 TH/MM3 Mean Platelet Volume 7.6 FL 7.1 FL 7.5 FL Neutrophils (%) (Auto) 72.3 % 77.6 % 73.7 % Lymphocytes (%) (Auto) 14.5 % 11.2 % 14.8 % Monocytes (%) (Auto) 11.7 % 10.2 % 9.3 % Eosinophils (%) (Auto) 1.1 % 0.6 % 1.6 % Basophils (%) (Auto) 0.4 % 0.4 % 0.6 % Neutrophils # (Auto) 7.6 TH/MM3 9.3 TH/MM3 8.8 TH/MM3 Lymphocytes # (Auto) 1.5 TH/MM3 1.3 TH/MM3 1.8 TH/MM3 Monocytes # (Auto) 1.2 TH/MM3 1.2 TH/MM3 1.1 TH/MM3 Eosinophils # (Auto) 0.1 TH/MM3 0.1 TH/MM3 0.2 TH/MM3 Basophils # (Auto) 0.0 TH/MM3 0.1 TH/MM3 0.1 TH/MM3 CBC Comment DIFF FINAL DIFF FINAL DIFF FINAL Differential Comment Blood Urea Nitrogen 18 MG/DL 29 MG/DL 32 MG/DL Creatinine 1.27 MG/DL 1.81 MG/DL 1.63 MG/DL Random Glucose 100 MG/DL 203 MG/DL 121 MG/DL Total Protein 7.0 GM/DL 6.7 GM/DL 6.9 GM/DL Albumin 3.2 GM/DL 3.0 GM/DL 3.1 GM/DL Calcium Level 8.8 MG/DL 9.2 MG/DL 9.3 MG/DL Phosphorus Level 3.4 MG/DL 4.2 MG/DL 4.6 MG/DL Magnesium Level 2.4 MG/DL 2.1 MG/DL 2.2 MG/DL Alkaline Phosphatase 114 U/L 110 U/L 109 U/L Aspartate Amino Transf (AST/SGOT) 28 U/L 31 U/L 31 U/L Alanine Aminotransferase (ALT/SGPT) 29 U/L 30 U/L 30 U/L Total Bilirubin 0.7 MG/DL 0.5 MG/DL 0.5 MG/DL Sodium Level 137 MEQ/L 132 MEQ/L 133 MEQ/L Potassium Level 4.1 MEQ/L 4.0 MEQ/L 3.9 MEQ/L Chloride Level 99 MEQ/L 93 MEQ/L 96 MEQ/L Carbon Dioxide Level 29.6 MEQ/L 31.9 MEQ/L 29.6 MEQ/L Anion Gap 8 MEQ/L 7 MEQ/L 7 MEQ/L Estimat Glomerular Filtration Rate 55 ML/MIN 36 ML/MIN 41 ML/MIN B-Type Natriuretic Peptide 322 PG/ML 66 PG/ML Imaging Last Impressions Chest X-Ray 03/26/17 0043 Signed Impressions: Service Date/Time: Sunday, March 26, 2017 00:55 - CONCLUSION: 1. Cardiomegaly and findings of congestive heart failure. 2. Bilateral effusions Ashutosh Read MD Objective Remarks GENERAL: This is a well-nourished, well-developed patient, in MILD distress. APPEARS UNCOMFORTABLE SKIN: No rashes, ecchymoses or lesions. Cool and dry. HEAD: Atraumatic. Normocephalic. No temporal or scalp tenderness. EYES: Pupils equal round and reactive. Extraocular motions intact. No scleral icterus. No injection or drainage. ENT: Nose without bleeding, purulent drainage or septal hematoma. Throat without erythema, tonsillar hypertrophy or exudate. Uvula midline. Airway patent. NECK: Trachea midline. No JVD or lymphadenopathy. Supple, nontender, no meningeal signs. CARDIOVASCULAR: Irregular Regular rate and rhythm without murmurs, gallops, or rubs. S1, S2 NO S3 OR S4 RESPIRATORY: DIMINISHED BREATH SOUNDS . Breath sounds equal bilaterally. No wheezes, FEW RALES AT BASES. GASTROINTESTINAL: Abdomen soft, non-tender, nondistended. No hepato-splenomegaly , or palpable masses. No guarding. MUSCULOSKELETAL: Extremities without clubbing, cyanosis; +3 BLE edema. No joint tenderness, effusion, or edema noted. No calf tenderness. Negative Homans sign bilaterally. NEUROLOGICAL: Awake and alert. Cranial nerves II through XII intact. Motor and sensory grossly within normal limits. Five out of 5 muscle strength in all muscle groups. Normal speech. INSIGHT AND JUDGEMENT ARE GOOD MOOD AND BEHAVIOR ARE APPROPRIATE Procedures NONE Medications and IVs Current Medications Sodium Chloride (NS Flush) 2 ml UNSCH PRN IVF FLUSH AFTER USING IV ACCESS; Start 03/26/17 at 00:45; Stop 03/26/17 at 02:42; Status DC Furosemide (Lasix Inj) 40 mg ONCE ONCE IV PUSH Last administered on 03/26/17at 01:56; Start 03/26/17 at 01:30; Stop 03/26/17 at 01:31; Status DC Aspirin (Aspirin Chew) 324 mg ONCE ONCE CHEW Last administered on 03/26/17at 02 :40; Start 03/26/17 at 02:30; Stop 03/26/17 at 02:31; Status DC Sodium Chloride (NS Flush) 2 ml UNSCH PRN IV FLUSH FLUSH AFTER USING IV ACCESS ; Start 03/26/17 at 02:45 Sodium Chloride (NS Flush) 2 ml BID IV FLUSH Last administered on 03/31/17at 08: 30; Start 03/26/17 at 09:00 Naloxone HCl (Narcan Inj) 0.4 mg UNSCH PRN IV PUSH SEE LABEL COMMENTS; Start at 02:45 Furosemide (Lasix Inj) 40 mg BID@18 IV PUSH Last administered on 03/27/17at 09:21; Start 03/26/17 at 09:00; Stop 03/27/17 at 15:00; Status DC Potassium Chloride (KCl) 40 meq ONCE ONCE PO Last administered on 03/26/17at 03 :49; Start 03/26/17 at 02:45; Stop 03/26/17 at 02:46; Status DC Amiodarone HCl (Cordarone) 400 mg DAILY PO Last administered on 03/27/17at 09:21 ; Start 03/27/17 at 09:00; Stop 03/27/17 at 15:00; Status DC Atorvastatin Calcium (Lipitor) 80 mg HS PO Last administered on 03/30/17at 22:50 ; Start 03/26/17 at 21:00 Glipizide (Glucotrol) 5 mg DAILYAC PO Last administered on 03/31/17at 08:29; Start 03/27/17 at 08:00 Levetriacetam (Keppra) 500 mg BID PO Last administered on 03/31/17at 08:29; Start 03/26/17 at 21:00 Lisinopril (Prinivil) 10 mg DAILY PO Last administered on 03/27/17at 09:20; Start 03/27/17 at 09:00; Stop 03/27/17 at 15:04; Status DC Potassium Chloride (KCl) 20 meq Q12HR PO Last administered on 03/31/17at 08:30; Start 03/26/17 at 21:00 Rivaroxaban (Xarelto) 20 mg HS PO Last administered on 03/30/17at 22:50; Start 03/26/17 at 21:00 Metoprolol Succinate (Toprol Xl) 200 mg DAILY PO Last administered on at 09:16; Start 03/27/17 at 09:00; Stop 03/30/17 at 15:52; Status DC Pantoprazole Sodium (Protonix) 20 mg DAILY PO Last administered on 03/31/17at 08 :29; Start 03/27/17 at 09:00 Dextrose (D50w (Vial) Inj) 50 ml UNSCH PRN IV PUSH HYPOGLYCEMIA-SEE COMMENTS; Start 03/26/17 at 14:45 Glucagon (Glucagon Inj) 1 mg UNSCH PRN OTHER HYPOGLYCEMIA-SEE COMMENTS; Start 03/26/17 at 14:45 Insulin Aspart (NovoLOG SUPPLEMENTAL SCALE) 1 ACHS SLIDING SCALE SQ Last administered on 03/30/17at 22:53; Start 03/26/17 at 17:00 Amiodarone HCl (Cordarone) 200 mg DAILY PO Last administered on 03/31/17at 08:30 ; Start 03/28/17 at 09:00 Bumetanide (Bumetanide) 1 mg BID@, PO Last administered on 03/29/17at 09:16 ; Start 03/27/17 at 18:00; Stop 03/29/17 at 11:31; Status DC Sacubitril/ Valsartan (Entresto 49-51 Mg) 1 tab BID PO Last administered on at 08:30; Start 03/27/17 at 21:00 Metolazone (Zaroxolyn) 5 mg BID@0900,1800 PO Last administered on 03/30/17at 08: 57; Start 03/28/17 at 18:00; Stop 03/30/17 at 15:52; Status DC Bumetanide (Bumetanide) 2 mg BID@ PO Last administered on 03/30/17at 08:55 ; Start 03/29/17 at 18:00; Stop 03/30/17 at 15:52; Status DC Bumetanide (Bumetanide) 1 mg ONCE ONCE PO Last administered on 03/29/17at 12:20 ; Start 03/29/17 at 12:00; Stop 03/29/17 at 12:01; Status DC Bumetanide (Bumetanide) 1 mg BID@ PO ; Start 03/30/17 at 18:00; Stop at 18:00; Status DC Metoprolol Succinate (Toprol Xl) 150 mg DAILY PO ; Start 03/31/17 at 09:00 A/P Problem List: (1) Acute on chronic systolic and diastolic heart failure, NYHA class 3 ICD Code: I50.43 - Acute on chronic combined systolic (congestive) and diastolic (congestive) heart failure Assessment and Plan 76-year-old man with Acute on chronic systolic CHF exacerbation With x-ray noted and review by me with evidence of congestive heart failure Last 2D echo with EF 25% (01/21/17); may obtain Limited 2D echo Currently on BUMEX 2MG PO Q12- HOLD Resume BB -START ON ENTRESTO Consult cardiology for further management SEEN BY DR FREY ADD ZAROXOLYN 5MG PO BID- STOP THIS Strict I's and O's Paroxysmal A. fib IN SINUS RHYTHM s/p recent cardiac ablation 03/21/17 Resume Xarelto, beta aust[place], amiodarone DECREASE TOPROL XL TO 150MG Diabetes type 2 Start ISS History of seizure disorder Resume Keppra Hyperlipidemia Resume statin DVT prophylaxis: Xarelto SWITCH MEDS AROUND AND DC TO HOME KASHMIR KING Discharge Planning IMPROVEMENT IN FLUID OVERLOAD WILL DC TO HOME TODAY Anthony Minaya DO Mar 31, 2017 11:37
--- NOTE | 2017-03-31 11:39 | HHI.FF ---
Face to Face Verification Diagnosis: (1) S/P ablation of atrial fibrillation (2) Chronic systolic congestive heart failure (3) Ischemic cardiomyopathy (4) CAD (coronary artery disease) (5) GERD (gastroesophageal reflux disease) (6) Hyperlipidemia (7) Diabetes mellitus type 2, uncontrolled (8) Acute on chronic systolic and diastolic heart failure, NYHA class 3 (9) Cardiomyopathy Physical Therapy Order: Evaluate and Treat, Improve ambulation, Strength and gait training Occupational Therapy Order: Evaluate and Treat, Improve ADL, Gross motor coordination, Fine motor coordination Home Health Nursing Order: Medical education CHF education Nursing assessment with vital signs Home Health Aide Order: To Assist In: Bathing and personal care, owner professional engineer and meal prep I have seen patient Triston Bolton on 03/31/17. My clinical findings support the need for the requested home health care services because: Patient has SOB Med compliance is questionable I certify that my clinical findings support that this patient is homebound because: Poor cardiac reserve Anthony Minaya DO Mar 31, 2017 11:39
[2017-03-31] MEDS ORDERED: SACU1TAB7 PO (11:45)
[2017-03-31] MEDS ORDERED: NITR1SUB3 SL (11:45)
[2017-03-31] MEDS ORDERED: BUME2TAB PO (11:45)
[2017-03-31] MEDS ORDERED: KLOR20TA3 PO (11:45)
[2017-03-31] MEDS ORDERED: GLIP5TAB8 PO (11:45)
[2017-03-31] MEDS ORDERED: MULTTAB67 PO (11:45)
[2017-03-31] MEDS ORDERED: LEVE500 PO (11:45)
[2017-03-31] MEDS ORDERED: AMIO200T PO (11:45)
[2017-03-31] MEDS ORDERED: XARE20TA PO (11:45)
[2017-03-31] MEDS ORDERED: OMEP20TA93 PO (11:45)
[2017-03-31] MEDS ORDERED: METO1TAB9 PO (11:45)
[2017-03-31] MEDS ORDERED: ATOR80TA45 PO (11:45)
--- NOTE | 2017-03-31 11:48 | HHI.DS ---
Discharge Summary Admission Date Mar 26, 2017 at 02:39 Discharge Date: Mar 31, 2017 Admitting Diagnosis CHF, pleural effusion (1) Acute on chronic systolic and diastolic heart failure, NYHA class 3 ICD Code: I50.43 - Acute on chronic combined systolic (congestive) and diastolic (congestive) heart failure Diagnosis: Principal (2) S/P ablation of atrial fibrillation ICD Code: Z98.890 - Other specified postprocedural states; Z86.79 - Personal history of other diseases of the circulatory system Diagnosis: Secondary Status: Acute (3) Chronic systolic congestive heart failure ICD Code: I50.22 - Chronic systolic congestive heart failure Diagnosis: Principal Status: Chronic (4) Ischemic cardiomyopathy ICD Code: I25.5 - Ischemic cardiomyopathy Diagnosis: Principal Status: Chronic (5) GERD (gastroesophageal reflux disease) ICD Code: K21.9 - GERD (gastroesophageal reflux disease) Diagnosis: Secondary Status: Chronic (6) CAD (coronary artery disease) ICD Code: I25.10 - CAD (coronary artery disease) Diagnosis: Secondary Status: Chronic (7) Hyperlipidemia ICD Code: E78.5 - Hyperlipidemia Diagnosis: Secondary Status: Chronic (8) Diabetes mellitus type 2, uncontrolled ICD Code: E11.9 - Diabetes mellitus type 2, uncontrolled Diagnosis: Secondary Status: Chronic (9) Hypertension, benign ICD Code: I10 - Hypertension, benign Diagnosis: Secondary Status: Chronic Procedures NONE Brief History - From Admission 76 year old male with a history of ischemic cardiomyopathy, Afib, CHF presenting to the ED with worsening shortness of breath over the past several weeks to month however worse over the past 3 days without any chest pain. Patient endorses bilateral lower extremity edema. Patient is status post cardiac ablation 03/21/17. Chest x-ray on arrival with evidence of congestive heart failure. BNP 800+. Patient denies any GI bleed. States he has been compliant with his medications and denies any increase in salt intake CBC/BMP: 03/31/17 0505 03/31/17 0505 Significant Findings Laboratory Tests Test 03/29/17 06:20 03/30/17 13:03 03/31/17 05:05 Red Blood Count 4.47 MIL/MM3 (4.50-5.90) 4.46 MIL/MM3 (4.50-5.90) 4.46 MIL/MM3 (4.50-5.90) Neutrophils (%) (Auto) 72.3 % (16.0-70.0) 77.6 % (16.0-70.0) 73.7 % (16.0-70.0) Monocytes (%) (Auto) 11.7 % (0.0-8.0) 10.2 % (0.0-8.0) 9.3 % (0.0-8.0) Monocytes # (Auto) 1.2 TH/MM3 (0-0.9) 1.2 TH/MM3 (0-0.9) 1.1 TH/MM3 (0-0.9) Albumin 3.2 GM/DL (3.4-5.0) 3.0 GM/DL (3.4-5.0) 3.1 GM/DL (3.4-5.0) Estimat Glomerular Filtration Rate 55 ML/MIN (>89) 36 ML/MIN (>89) 41 ML/MIN (>89) B-Type Natriuretic Peptide 322 PG/ML (0-100) White Blood Count 12.0 TH/MM3 (4.0-11.0) 11.9 TH/MM3 (4.0-11.0) Neutrophils # (Auto) 9.3 TH/MM3 (1.8-7.7) 8.8 TH/MM3 (1.8-7.7) Blood Urea Nitrogen 29 MG/DL (7-18) 32 MG/DL (7-18) Creatinine 1.81 MG/DL (0.60-1.30) 1.63 MG/DL (0.60-1.30) Random Glucose 203 MG/DL (74-106) 121 MG/DL (74-106) Sodium Level 132 MEQ/L (136-145) 133 MEQ/L (136-145) Chloride Level 93 MEQ/L (98-107) 96 MEQ/L (98-107) Imaging Last Impressions Chest X-Ray 03/26/17 0043 Signed Impressions: Service Date/Time: Sunday, March 26, 2017 00:55 - CONCLUSION: 1. Cardiomegaly and findings of congestive heart failure. 2. Bilateral effusions Ashutosh Read MD PE at Discharge GENERAL: This is a well-nourished, well-developed patient, in MILD distress. APPEARS UNCOMFORTABLE SKIN: No rashes, ecchymoses or lesions. Cool and dry. HEAD: Atraumatic. Normocephalic. No temporal or scalp tenderness. EYES: Pupils equal round and reactive. Extraocular motions intact. No scleral icterus. No injection or drainage. ENT: Nose without bleeding, purulent drainage or septal hematoma. Throat without erythema, tonsillar hypertrophy or exudate. Uvula midline. Airway patent. NECK: Trachea midline. No JVD or lymphadenopathy. Supple, nontender, no meningeal signs. CARDIOVASCULAR: Irregular Regular rate and rhythm without murmurs, gallops, or rubs. S1, S2 NO S3 OR S4 RESPIRATORY: DIMINISHED BREATH SOUNDS . Breath sounds equal bilaterally. No wheezes, FEW RALES AT BASES. GASTROINTESTINAL: Abdomen soft, non-tender, nondistended. No hepato-splenomegaly , or palpable masses. No guarding. MUSCULOSKELETAL: Extremities without clubbing, cyanosis; +3 BLE edema. No joint tenderness, effusion, or edema noted. No calf tenderness. Negative Homans sign bilaterally. NEUROLOGICAL: Awake and alert. Cranial nerves II through XII intact. Motor and sensory grossly within normal limits. Five out of 5 muscle strength in all muscle groups. Normal speech. INSIGHT AND JUDGEMENT ARE GOOD MOOD AND BEHAVIOR ARE APPROPRIATE Hospital Course 76 year old male with a history of ischemic cardiomyopathy, Afib, CHF presenting to the ED with worsening shortness of breath over the past several weeks to month however worse over the past 3 days without any chest pain. Patient endorses bilateral lower extremity edema. Patient is status post cardiac ablation 03/21/17. Chest x-ray on arrival with evidence of congestive heart failure. BNP 800+. Patient denies any GI bleed. States he has been compliant with his medications and denies any increase in salt intake 1-[address] FREY MEDICATIONS ADJUSTED CONTINUE TO DIURESE AM LABS 1-12 NOT URINATING WELL WILL ADD ZAROXOLYN 5MG PO BID KASHMIR HOSE AND SCDS AM LABS CONTINUE TO AGGRESSIVELY DIURESE ALETA RN AND PT AND FAMILY - CHANGE TO BUMEX 2MG BID AND ZAROXOLYN 5MG BID AM LABS WEARING KASHMIR HOSE LEGS LESS SWOLLEN DW RN AND PT AND CM AND PHARMACY 1-14 LEGS LOOK BETTER RENALLY INSUFFICIENT ADJUST MEDS DW RN AND PT AM LABS HOLD BUMEX HOLD ZAROXOLYN DECREASE TOPROL TO 150MG DAILY 1-15 DC TO HOME ON BUMEX AND DECREASE TOPROL XL SEE MED REC RX WRITTEN FOLLOW UP WITH CARDIO AND PCP DC TO HOME C FOR RN RENAE AND TREAT Pt Condition on Discharge: Good Discharge Disposition: Disch w/ Home Health Serv Discharge Time: > 30 minutes Discharge Instructions DIET: Follow Instructions for: Heart Healthy Diet, Diabetic Diet Speech Therapy-Diet Recommends: Regular Fluid Restrictions: 1.2 LITERS Activities you can perform: Regular-No Restrictions Follow up Referrals: Cardiology - 1 Week with Barbra Echavarria MD Cardiology - 1 Week with Leonel Frey MD PCP Follow-up - 2-3 Days with Do Teja Beach MD New Medications: Bumetanide (Bumetanide) 2 Mg Tab 2 MG PO BID for Blood Pressure Management for 30 Days, #60 TAB 0 Refills Amiodarone (Amiodarone) 200 Mg Tab 200 MG PO DAILY for Regulate Heart Beat, #30 TAB Metoprolol Succinate ER 24 HR (Metoprolol Succinate ER 24 HR) 50 Mg Tab 150 MG PO DAILY for Regulate Heart Beat, #30 TAB Sacubitril-Valsartan (Entresto) 49-51 Mg Tab 1 TAB PO BID for Blood Pressure Management, #60 TAB Continued Medications: Atorvastatin (Atorvastatin) 80 Mg Tab 80 MG PO HS for Cholesterol Management, #30 TAB (This prescription has been renewed) Glipizide (Glipizide) 5 Mg Tab 5 MG PO DAILY for Blood Sugar Management, #30 TAB 0 Refills (This prescription has been renewed) Take 30 minutes before a meal Insulin Human NPH Inj (Humulin N Inj) 1,000 Unit/10 Ml Vial UNITS SQ DIRECTED for Blood Sugar Management, ML 0 Refills Levetiracetam (Keppra) 500 Mg Tab 500 MG PO BID for Control Seizures, #60 TAB 0 Refills (This prescription has been renewed) Multiple Vitamin (Multiple Vitamin) 1 Tab 1 TAB PO DAILY for Nutritional Supplement, #30 TAB 0 Refills (This prescription has been renewed) Nitroglycerin SL (Nitroglycerin SL) 0.4 Mg Subl 0.4 MG SL DIRECTED PRN for CHEST PAIN, #100 TAB.SL 0 Refills (This prescription has been renewed) ONE TABLET UNDER THE TONGUE NEEDED FOR CHEST PAIN, MAY REPEAT EVERY FIVE MINUTES FOR A TOTAL OF 3 DOSES OR CALL 911 IF NO RELIEF Omeprazole (Omeprazole) 20 Mg Tab 20 MG PO DAILY for Heartburn Management, #30 TAB 0 Refills (This prescription has been renewed) Potassium Chloride Microencaps (Klor-Con M20) 20 Meq Tab 20 MEQ PO Q12HR for Electrolyte Replacement, #60 TAB 0 Refills (This prescription has been renewed) Rivaroxaban (Xarelto) 20 Mg Tab 20 MG PO HS for Blood Clot Prevention, #30 TAB 0 Refills (This prescription has been renewed) Discontinued Medications: Amiodarone (Amiodarone) 400 Mg Tab 400 MG PO DAILY for Regulate Heart Beat, #30 TAB 0 Refills Diltiazem ER 24 HR (Cardizem LA) 180 Mg Mario 180 MG PO DAILY, #30 TAB 0 Refills Lisinopril (Lisinopril) 10 Mg Tab 10 MG PO DAILY, #30 TAB 4 Refills Metoprolol Succinate ER 24 HR (Metoprolol Succinate ER 24 HR) 200 Mg Tab 200 MG PO DAILY, TAB 0 Refills Torsemide (Torsemide) 20 Mg Tab 20 MG PO BID for Heart, #180 TAB 3 Refills Additional Information WEAR KASHMIR [place] ON [address] Anthony Montanez DO Mar 31, 2017 11:48
[2017-03-31 12:00] VITALS: BP 103/53; PULSE 65; RESP 17; TEMP 97.5; O2SAT 95
== END 2017-03-31 13:27 | disposition home health service (06) | DRG 293 ==
LOC: NEPC 00:36 → NEDA 02:39 → NEDH 06:42 → N04B 15:21
PROVIDERS: ADMIT Hospitalist; ATTEND Hospitalist
DX: I11.0 Hypertensive heart disease with heart failure (principal); E11.65 Type 2 diabetes mellitus with hyperglycemia; I25.5 Ischemic cardiomyopathy; I48.0 Paroxysmal atrial fibrillation; G40.909 Epilepsy, unspecified, not intractable, without status epilepticus; E78.5 Hyperlipidemia, unspecified; I25.10 Atherosclerotic heart disease of native coronary artery without angina pectoris; I25.2 Old myocardial infarction; H91.91 Unspecified hearing loss, right ear; K21.9 Gastro-esophageal reflux disease without esophagitis; I45.10 Unspecified right bundle-branch block; I50.43 Acute on chronic combined systolic (congestive) and diastolic (congestive) heart failure; M19.90 Unspecified osteoarthritis, unspecified site; Z79.01 Long term (current) use of anticoagulants; Z79.4 Long term (current) use of insulin; Z86.73 Personal history of transient ischemic attack (TIA), and cerebral infarction without residual deficits; Z87.891 Personal history of nicotine dependence; Z95.0 Presence of cardiac pacemaker; Z95.5 Presence of coronary angioplasty implant and graft
CPT/HCPCS: 71045; 80048; 80053; 82948; 83036; 83735; 83880; 84100; 84439; 84443; 84484; 85025; 85610; 85730; 93005; 96374; J1815; J1940

== ENCOUNTER 2017-08-21 09:50 | Day surgery (SDC) | payer OTHER ==
[~2017-08-21] VITALS: Ht 172.7 cm; Wt 94.3 kg
[~2017-08-21 09:50] MED LIST changes: +BUME2TAB PO; -LISI10TA3 PO; -METO-393 PO; +METO1TAB9 PO; +SACU1TAB7 PO; -TORS20TA PO
[2017-08-21] MEDS ORDERED: FERR325T18 PO (10:54)
[2017-08-21] MEDS ORDERED: NOVOLOGMXP SQ (10:54)
[2017-08-21] MEDS ORDERED: FLUT50SP EACH NARE (10:54)
[2017-08-21] MEDS ORDERED: KLOR20TA3 PO (10:54)
[2017-08-21 10:55] VITALS: BP 116/76; PULSE 109; RESP 18; TEMP 97.8; O2SAT 95
[2017-08-21] MEDS ORDERED: NS 1000 ML IV SCH (11:30)
[2017-08-21] MEDS ORDERED: POVIDONE IODINE 5% (ANTISEPSIS KIT) 4 APPLICATIONS EACH NARE PRN (11:30)
[2017-08-21] MEDS ORDERED: NO Heparin, Lovenox, Coumadin at least 12 hours prior to procedure. PRN (11:30)
[2017-08-21] MEDS ORDERED: CHLORHEXIDINE GLUCONATE 2 % 1 PACK (2 CLOTHS) TOPICAL PRN (11:30)
[2017-08-21] MEDS ORDERED: LACTATED RINGER'S 1000 ML IV PRN (11:30)
[2017-08-21] MEDS ORDERED: POVIDONE IODINE 5% (ANTISEPSIS KIT) 4 APPLICATIONS EACH NARE SCH (11:30)
[2017-08-21] MEDS ORDERED: METOPROLOL TARTRATE 25 MG TAB PO PRN (11:30)
[2017-08-21] MEDS ORDERED: VANCOMYCIN 1000 MG/NS 250 ML IV SCH ×2 (11:30)
[2017-08-21] MEDS ORDERED: CHLORHEXIDINE GLUCONATE 2 % 1 PACK (2 CLOTHS) TOPICAL SCH (11:30)
[2017-08-21] MEDS ORDERED: LORazepam 1 MG TAB SL SCH (11:30)
[2017-08-21] MEDS ORDERED: ceFAZolin 2 GM PREMIX 50 ML IV SCH (11:30)
[2017-08-21] MEDS ORDERED: SODIUM CHLORID 0.9% 500 ML IV PRN (11:30)
[2017-08-21] MEDS ORDERED: Hold AM Insulin & AM Hypoglycemic medications in diabetic patients PRN (11:30)
[2017-08-21] MEDS ORDERED: MUPIROCIN 2% OINT 1 APPLIC/GM SYR NASAL SCH (11:30)
[2017-08-21 11:49] LABS: AUTOMATED NEUTROPHIL # 6.1 TH/MM3 (1.8-7.7); BASOPHIL % 0.4 % (0.0-2.0); EOSINOPHIL % 0.5 % (0.0-4.0); HEMATOCRIT 39.7 % (39.0-51.0); HEMOGLOBIN 13.4 GM/DL (13.0-17.0); LYMPH % 10.4 % (9.0-44.0); LYMPHOCYTE # 0.8 TH/MM3 (1.0-4.8); MEAN CELL VOLUME 94.2 FL (80.0-100.0); MEAN CORPUSCULAR HEMOGLOBIN 31.9 PG (27.0-34.0); MEAN CORPUSCULAR HGB CONC 33.9 % (32.0-36.0); MEAN PLATELET VOLUME 7.7 FL (7.0-11.0); MONO % 8.7 % (0.0-8.0); MONOCYTE # 0.7 TH/MM3 (0-0.9); PLATELET COUNT 124 TH/MM3 (150-450); RED BLOOD COUNT 4.21 MIL/MM3 (4.50-5.90); RED CELL DISTRIBUTION WIDTH 14.3 % (11.6-17.2); WHITE BLOOD COUNT 7.6 TH/MM3 (4.0-11.0)
[2017-08-21] MEDS ORDERED: PHENYLEPH/NS 1000 MCG/10 ML SYR IV ONE (12:00)
[2017-08-21] MEDS ORDERED: ePHEDrine/NS 25 MG/5 ML SYRINGE IV ONE (12:00)
[2017-08-21] MEDS ORDERED: ceFAZolin INJ 1,000 MG VIAL IV ONE ×2 (12:00→18:35)
[2017-08-21] MEDS ORDERED: PHENYLEPHRINE HCL 10 MG/ML VIAL IV ONE (12:00)
[2017-08-21] MEDS ORDERED: SODIUM CHLORIDE 0.9% 10 ML VIAL IV ONE (12:00)
[2017-08-21] MEDS ORDERED: LIDOCAINE HCL 1% PF 5 ML SYRINGE OTHER ONE (12:00)
[2017-08-21] MEDS ORDERED: ONDANSETRON HCL 4 MG/2 ML VIAL IV ONE (12:00)
[2017-08-21] MEDS ORDERED: PROPOFOL 200 MG/20 ML AMP IV ONE (12:00)
[2017-08-21 12:01] LABS: INTERNATIONAL NORMALIZED RATIO 1.1 RATIO; PROTHROMBIN TIME - PATIENT 11.4 SEC (9.8-11.6)
[2017-08-21 12:14] LABS: BICARBONATE 27.5 MEQ/L (21.0-32.0); CALCIUM 8.6 MG/DL (8.5-10.1); CREATININE 1.46 MG/DL (0.60-1.30)
[2017-08-21] MEDS ORDERED: HEPARIN-NS/PF INJ 500 ML ONE (13:04)
[2017-08-21] MEDS ORDERED: VANCOMYCIN 500 MG VIAL ONE (13:05)
[2017-08-21] MEDS ORDERED: LIDOCAINE HCL 2% 20 ML VIAL ONE (13:05)
[2017-08-21] MEDS ORDERED: ISOPROTERENOL INJ PREMIX 50 ML IV ONE (13:35)
[2017-08-21] MEDS ORDERED: ceFAZolin INJ 1,000 MG VIAL ONE (13:38)
[2017-08-21] MEDS ORDERED: VANCOMYCIN HCL 1000 MG VIAL ONE (13:38)
[2017-08-21] MEDS ORDERED: SODIUM CHLOR 0.9% 250 ML INJ 250 ML ONE (13:39)
[2017-08-21] MEDS ORDERED: VASOPRESSIN 20 UNITS/ML VIAL ONE ×2 (14:04→18:30)
--- NOTE | 2017-08-21 14:36 | CATHPROC ---
Patient Name: NICHELLE NASCIMENTO Study #: [id number] Initial MD: Leonel Myrick Date of : 1940 Study Date: 08/21/2017 Cardiac Catheterization Report 08/21/2017 4:36:27 PM Financial #: [id number] 1 of 7 Patient Name: NICHELLE NASCIMENTO Study #: [id number] Initial MD: Leonel Myrick Date of : 1940 Study Date: 08/21/2017 Entire Case Report Patient Information Patient Name NICHELLE NASCIMENTO Date of 1940 Age 77 years Financial # [id number] Gender M AlternateID Lab Number 2 Room Number DC02 Height (in) 68.0 Height (cm) 172.7 BSA 2.12 Weight (lbs) 218.7 Weight (kg) 99.4 Patient Address/Phone Number Home Address [facility] Home Phone Number [facility] [phone] Study Information Study Number Admission Scheduled Start Study Start [id number] Aug 21 2017 9:50AM 08/21/2017 Aug 21 2017 1:00PM [place] Service Cardiac Pacer/ICD Admit Source Facility Department Other [facility] - Marketing Education Teacher Physician and Clinical Staff Initial Leonel Umanzor Cartoon Artist Eliza Garza,RN Cartoon Artist Elvia Sheppard,RT(R) TECH2 Other Anesthesia, METAL BONDING PRESS OPERATOR Recorder Awilda Austin,KOTA Scrub Kendell Walker,RT(R) Procedures Performed Procedure Ablation Procedure 08/21/2017 4:36:27 PM Financial #: [id number] 2 of 7 Patient Name: NICHELLE NASCIMENTO Study #: [id number] Initial MD: Leonel Myrick Date of : 1940 Study Date: 08/21/2017 Equipment Time Cargo Broker Description Size Mfg Part Number Used/Scraped BIOSENSE DIETRICH CATHETER, CELSIUS DS, 8MM, F [id number] 13:49 FR 7 Used INC. TYPE QUAD *[id number] 13:49 MacuCLEAR BLANKET,WARM AIR CCL * Used *[id number] 13:49 MEDLINE INDUSTRIES PACK, CCL CUSTOM * Used *[id number] 13:49 MEDLINE PACER DENNY, LIMB * 2530 *[id number] Used [id number] 13:49 [employer] MEDICAL CATHETER, JSN, QUAD FR 5 Used *[id number] 13:47 [employer] MEDICAL CATHETER, JSN, QUAD FR 5 Used *[id number] 687565 13:49 [employer] MEDICAL CATHETER, JSN, QUAD FR 5 Used *[id number] 13:49 [employer]ENN[employer] MEDICAL ELECTRODE KIT, [place] X SURFACE * Used *[id number] 525060 13:48 [employer] SHEATH, EPS, FR5 FAST CATH FR 5 Used *[id number] 690210 13:50 [employer] MEDICAL SHEATH, EPS, FR5 FAST CATH FR 5 Used *[id number] 119408 13:50 [employer] MEDICAL SHEATH, EPS, FR5 FAST CATH FR 5 Used *[id number] 500736 13:50 [employer] MEDICAL SHEATH, EPS, FR6 FAST CATH FR 6 Used *[id number] [id number] 13:52 [employer] MEDICAL SHEATH, EPS, FR8 FAST CATH FR 8 Used *[id number] 115088 13:53 [employer] MEDICAL SHEATH, EPS, FR8 FAST CATH FR 8 Used *[id number] [facility] PAD, ELECTROSURGICAL 13:49 * [id number] *[id number] Used SURGICAL GROUNDING (BLUE) Insurance Information Insurance Payor Private Health Insurance Third Alliance Party Third Alliance Party Number [employer] [facility] History: Allergies Allergy Reaction No Known Allergies Medication Medication Total Dose (Bolus/Oral) Medication Total Dosage/Unit 1% XYLOCAINE 40 mL 08/21/2017 4:36:27 PM Financial #: [id number] 3 of 7 Patient Name: NICHELLE NASCIMENTO Study #: [id number] Initial MD: Leonel Myrick Date of : 1940 Study Date: 8 Medications (Bolus/Oral) Medication Time Given Dosage/Unit Administered By Reason 1% XYLOCAINE 08/21/2017 1:42:55 PM 20 mL Leonel Myrick 20 mL 1% XYLOCAINE given in lab by Leonel Myrick in Right Groin via Subcutaneous. Ordered by Markie Myrick. 1% XYLOCAINE 08/21/2017 2:12:53 PM 20 mL Leonel Myrick 20 mL 1% XYLOCAINE given in lab by Leonel Myrick in Left Groin via Subcutaneous. Ordered by Ajit Myrick. Medication (Drip) Medication Time Given Dosage/Unit Concentration/Unit Diluent (ml) Solution ANCEF 08/21/2017 1:42:49 PM 2 g 2 g ANCEF given in lab by Leonel Myrick in Left Forearm via Peripheral IV. Ordered by Leonel Myrick. Reason: As per physicians verbal order. ISUPREL 08/21/2017 2:20:44 PM 5 mcg/min 1 mg 250 NaCl .9 5 mcg/min ISUPREL given in lab by Anesthesia, METAL BONDING PRESS OPERATOR via Peripheral IV. Pump/Drip Flow = 75 ml/hr using NaCl .9 with a concentration of 1 mg in 250 ml. Ordered by Leonel Myrick. Reason: As per physicians verbal order. ISUPREL DRIP STOPPED 08/21/2017 2:29:45 PM 0 units/hr 0 0 units/hr ISUPREL DRIP STOPPED given in lab by Anesthesia, METAL BONDING PRESS OPERATOR. Pump/Drip Flow = 0 ml/hr using [Lesley ution Name]. Ordered by Leonel Myrick. Reason: As per physicians verbal order. Discontinued at 08/21/2017 14:30. VANCOMYCIN DRIP 08/21/2017 1:43:13 PM 1 g 1 g VANCOMYCIN DRIP given in lab by Leonel Myrick in Left Forearm via Peripheral IV. Ordered by Leonel Myrick. Reason: As per physicians verbal order. 08/21/2017 4:36:27 PM Financial #: [id number] 4 of Patient Name: NICHELLE NASCIMENTO Study #: [id number] Initial MD: Leonel Myrick Date of : 1940 Study Date: 08/21/2017 Initial Case Assessment Cardiovascular HR NIBP 110 139/87 Edema Present Skin color Skin None Normal Warm Dry Circulatory - Right Pulses Dorsalis Pedis 1 Scale (0,1,2,3,4,d) Circulatory - Left Pulses Dorsalis Pedis 1 Scale (0,1,2,3,4,d) Circulatory - Lower Extremities Color Lower Right Color Lower Left Normal Normal Neurological State Oriented to time-place- Alert Moves all extremities person Respiration - General Respiration Rate SpO2 (%) (B/min) 16 99 Chronological Log Time Study Chronological Log 13:19:06 Patient arrived via Bed. 13:19:07 Patient Name, D.O.B, / Armband Verified By R.N. 13:19:07 Consent signed by the physician and the patient and verified by the Marketing Education Teacher staff. 13:19:08 Pre-op and post- op instructions given; patient acknowledges understanding of instructions. 13:19:09 Anesthesia at bedside. Assumes care of patient. 13:20:25 History and physical on the chart or being dictated. 13:21:38 2% CHLORHEXIDINE GLUCONATE WASH AND NASAL SWIPE DONE PRIOR TO PROCEDURE. 13:22:11 Patient has been NPO for More than 6Hrs. 13:22:12 Skin Breakdown- minor bruises on arms, pink area left inner peña 08/21/2017 4:36:27 PM Financial #: [id number] Patient Name: NICHELLE NASCIMENTO Study #: [id number] Initial MD: Leonel Myrick Date of : 1940 Study Date: 08/21/2017 13:22:13 Patient Warmer Placed on the Table. 13:22:22 A # 20 IV was noted in the Forearm (left). Grade = 0 0.9% NaCl @ KVO 13:22:23 A # 20 IV was noted in the Forearm (right). Grade = 0 0.9% NaCl @ KVO 13:26:02 Disposable Defibrillator Pads Placed On Patient. 13:26:03 Марина Prominences Protected 13:26:18 Table restraints applied according to hospital policy 13:26:24 Bovie ground pad applied to: left thigh 13:29:36 Tacchyarrythmia therapy off set to DDI rate 40 by rep per order Dr. Myrick. Assessment: Initial Case, HZ=742 BPM, BZMB=852/87 mmhg, Edema=None, Color=Normal, Skin = Warm, Dry Right Pulses: Shamar Ped=1 Left Pulses: Shamar Ped=1 13:30:14 Lower Right Extremities: Color=Normal Lower Left Extremities: Color=Normal Neurological: State=Alert, Ox3, MICHEL Respiration: Resp=16 B/min, SpO2=99 % 13:31:18 Anesthesiologist present for LMA insertion 13:35:23 Bilateral groins prepped with 2% chlorhexidine, and draped after a 3 minute waiting time. 13:39:36 MD arrived. Time Out. Correct patient, procedure, procedure equipment, site and side verified with physicia n present. Time 13:41:52 concurred by MD, individual staff and METAL BONDING PRESS OPERATOR. Time Out #2 - Consents verified, patient in correct position, all results are labled and displa yed, safety precautions 13:42:15 taken, antibiotics administered. Time out concurred by MD, individual staff and METAL BONDING PRESS OPERATOR in procedu re 13:42:43 Case Start 2 g ANCEF given in lab by Leonel Myrick in Left Forearm via Peripheral IV. Ordered by Ajit Myrick. Reason: As per 13:42:49 physicians verbal order. 13:42:55 20 mL 1% XYLOCAINE given in lab by Leonel Myrick in Right Groin via Subcutaneous. Ordered Leonel Cee. 1 g VANCOMYCIN DRIP given in lab by Leonel Myrick in Left Forearm via Peripheral IV. Ordered by Leonel Myrick. 13:43:13 Reason: As per physicians verbal order. 13:43:17 Vascular access was obtained in the Fem Vein (right). 13:43:22 Vascular access was obtained in the Fem Vein (right). 13:43:26 Vascular access was obtained in the Fem Vein (right). 13:43:34 Vascular access was obtained in the Fem Vein (right). 13:48:15 A SHEATH, EPS, FR5 FAST CATH FR 5 was advanced into the Fem Vein (right) using the Modified Seldinger technique. 13:51:07 A SHEATH, EPS, FR5 FAST CATH FR 5 was advanced into the Fem Vein (right) using the Modified Seldinger technique. 13:51:11 A SHEATH, EPS, FR6 FAST CATH FR 6 was advanced into the Fem Vein (right) using the Modified Seldinger technique. A SHEATH, EPS, FR8 FAST CATH FR 8 was advanced into the Fem Vein (right) using the Modified Serene jairon technique 13:51:11 but could not be advanced and was removed after multiple dilation attempts. Per Dr. Myrick, a part of the distal 8fr sheath broke off inside the femoral vein. Dr. Elen cannon sulted Interventional 14:01:53 Raiologist for support. Case holding while waiting for rad to arrive. 14:04:56 Dr. Avila arrived from IR 14:10:35 Dr. Avila evaluated area under fluoroscopy and will intervene after EP and case completed. 14:11:51 Dr. Avila left. We will call him back at the end of the case. 14:12:53 20 mL 1% XYLOCAINE given in lab by Leonel Myrick in Left Groin via Subcutaneous. Ordered by Leonel Myrick. 08/21/2017 4:36:27 PM Financial #: [id number] Patient Name: NICHELLE NASCIMENTO Study #: [id number] Initial MD: Leonel Myrick Date of : 1940 Study Date: 08/21/2017 14:13:08 Vascular access was obtained in the Fem Vein (left). 14:13:35 A SHEATH, EPS, FR8 FAST CATH FR 8 was advanced into the Fem Vein (left) using the Modifie d Seldinger technique. A CATHETER, JSN, QUAD FR 5 was advanced vis Fem Vein (right) and placed in the CS. Placement was visually 14:15:07 confirmed under fluoroscopy. A CATHETER, JSN, QUAD FR 5 was advanced via Fem Vein (right) and placed in the RVA. Placement was visually 14:15:26 confirmed under fluoroscopy. A CATHETER, JSN, QUAD FR 5 was advanced via Fem Vein (right) and placed in the HIS. Placement was visually 14:15:36 confirmed under fluoroscopy. A CATHETER, CELSIUS DS, 8MM, F TYPE QUAD FR 7 was advanced vis Fem Vein (right) and placed in the AV NODE. 14:16:38 Placement was visually confirmed under fluoroscopy. 14:17:09 AV Node ablation in progress 14:20:11 Ablation complete. 14:20:12 Incremental Ventricular Pacing in progress per Dr. Myrick. 14:20:24 Case End (Physician broke scrub) 5 mcg/min ISUPREL given in lab by Anesthesia, METAL BONDING PRESS OPERATOR via Peripheral IV. Pump/Drip Flow = 75 ml/ hr using NaCl .9 with 14:20:44 a concentration of 1 mg in 250 ml. Ordered by Leonel Myrick. Reason: As per physicians verbal order. 14:29:21 Pacing stopped 0 units/hr ISUPREL DRIP STOPPED given in lab by AnesthesiaVARGHESE. Pump/Drip Flow = 0 ml/hr us ing [Solution Name]. 14:29:45 Ordered by Leonel Myrick. Reason: As per physicians verbal order. Discontinued at 08/21/2017 14 :30. 14:31:27 Sheaths and RV and CS quads remain in place. Only HIS quad removed. 14:33:21 Cine recording checked. 14:33:36 Ablation procedure performed: AVN. 14:33:49 EP Procedure was performed. 14:34:26 NOTE: This patient is undergoing an additional procedure while still in the Cardiac Marketing Education Teacher. End Study - Contrast Media Used In Study Contrast Total Opened (mL) Total Used (mL) Total Wasted (mL) Unspecified 0 0 0 End Study - Radiation Exposure Fluoro Time (minutes) 3.2 End Study - Patient Disposition Complications Transferred To Not selected Telemetry Bed 08/21/2017 4:36:27 PM Financial #: [id number]
[2017-08-21] MEDS ORDERED: DO NOT ADM ANY ANTICOAGULANT DRUGS PRN ×2 (16:30→19:55)
--- NOTE | 2017-08-21 16:30 | CATHPROC ---
Patient Name: NICHELLE NASCIMENTO Study #: [id number] Initial MD: Leonel Myrick Date of : 1940 Study Date: 08/21/2017 Cardiac Catheterization Report 08/21/2017 4:30:26 PM Financial #: [id number] 1 of 8 Patient Name: NICHELLE NASCIMENTO Study #: [id number] Initial MD: Leonel Myrick Date of : 1940 Study Date: 08/21/2017 Entire Case Report Patient Information Patient Name NICHELLE NASCIMENTO Date of 1940 Age 77 years Financial # [id number] Gender M AlternateID Lab Number 2 Room Number DC02 Height (in) 68.0 Height (cm) 172.7 BSA 2.12 Weight (lbs) 218.7 Weight (kg) 99.4 Patient Address/Phone Number Home Address [facility] Home Phone Number [facility] [phone] Study Information Study Number Admission Scheduled Start Study Start [id number] Aug 21 2017 9:50AM 08/21/2017 Aug 21 2017 2:37PM [place] Service Electrophysiology Study Admit Source Facility Department Other [facility] Physician and Clinical Staff Initial Leonel Umanzor Fire Captain Elvia Sheppard,RT(R) TECH2 Other Anesthesia, UNIT MANAGER Recorder Awilda Austin,KOTA Recorder Eliza Garza,KOTA Scrub Kendell Walker,RT(R) Procedures Performed Procedure Location (Site) Vessel Name Lead Insertion Lead Revision Venogram L Upper Chest Subclavian Vein Wire insertion Subclav. Vein (Lft Subclavian Vein 08/21/2017 4:30:26 PM Financial #: [id number] 2 of 8 Patient Name: NICHELLE NASCIMENTO Study #: [id number] Initial MD: Leonel Myrick Date of : 1940 Study Date: 08/21/2017 Equipment Time Advertising Campaign Manager Description Size Mfg Part Number Used/Scraped [id number] 15:20 [employer] W[employer], ASAHI PROWATER 180CM 180CM Used *[id number] 15:29 [employer] W[employer], ASAHI PROWATER 180CM 180CM Used *[id number] 40506-02 15:33 [employer] W[employer], ASAHI PROWATER 180CM 180CM Used *[id number] DERMABOND, ADHESIVE SKIN [id number] 14:40 CORDIS/PACER * Used GLUE MINI *[id number] 14:40 [employer] BLANKET,WARM AIR CCL * Used *[id number] TP-1103 14:40 [employer] SUTURE, STRIP PLUS 1/2" * Used *[id number] 14:40 MEDLINE PACER DENNY, LIMB * 2530 *[id number] Used [id number] 14:40 MEDLINE PACER PACK, PACER CUSTOM * Used *[id number] 14:58 Needle Sponge Count 1 111 Used 14:58 Needle Sponge Count 20 200 Used 14:57 Needle Sponge Count 3 3 Used 15:19 [employer]COMED OMNIPAQUE, 350 MG, 50ML 50ML [id number] Used SUTURE, 0 ETHIBOND [CT1] ([id number]), 8pk SUTURE, 2-0 VICRYL [CT1] ([id number]) SUTURE, 2-0 VICRYL [CT1] ([id number]) DEFIBRILLATOR, QUADRA 15:53 [employer] [employer] VVEDDDDRV [id number] Used [facility] [id number] 15:16 [employer] LIVEWIRE, QUAD, MED SWEEP FR 6 Used *[id number] 355750 15:16 [employer] LIVEWIRE, QUAD, MED SWEEP FR 6 Used *[id number] 787008 15:17 [employer] SHEATH, EPS, FR6 FAST CATH FR 6 Used *[id number] [facility] PAD, ELECTROSURGICAL 14:40 * [id number] *[id number] Used SURGICAL GROUNDING ORANGE LEAD, ATTAIN PERFORMA 15:23 V[employer] 88CM 4398-88CM Used STRAIGHT, 88CM [id number] 14:43 [employer] PLASMABLADE, PEAD 3.0S * Used *[id number] 4161-2303 14:40 [employer] YESSI. / * Used *[id number] Equipment Model, Serial, Lot Number and Expiration Data Description Model Number Serial Number Lot Number Expiration Date LEAD, ATTAIN PERFORMA 4398-88 [id number] 03-14-2019 STRAIGHT, 88CM LIVEWIMIRIAM, SETH, MED SWEEP [id number] 05-14-2020 LIVEWIMIRIAM, QUAD, MED SWEEP [id number] 05-14-2020 08/21/2017 4:30:26 PM Financial #: [id number] 3 of 8 Patient Name: NICHELLE NASCIMENTO Study #: [id number] Initial MD: Leonel Myrick Date of : 1940 Study Date: 08/21/2017 Insurance Information Insurance Payor Private Health Insurance Third Constitution Party Third Constitution Party Number ZENON CALIX O HUMCRO History: Allergies Allergy Reaction No Known Allergies Medication Medication Total Dose (Bolus/Oral) Medication Total Dosage/Unit 2% XYLOCAINE 40 mL Medications (Bolus/Oral) Medication Time Given Dosage/Unit Administered By Reason 2% XYLOCAINE 08/21/2017 3:07:28 PM 40 mL Leonel Myrick 40 mL 2% XYLOCAINE given by Leonel Myrick in Left shoulder via Subcutaneous. Ordered by Leonel Myrick . 08/21/2017 4:30:26 PM Financial #: [id number] 4 of 8 Patient Name: NICHELLE NASCIMENTO Study #: [id number] Initial MD: Leonel Myrick Date of : 1940 Study Date: 08/21/2017 Final Case Assessment Cardiovascular HR NIBP 80 120/77 Edema Present Skin color Skin None Normal Warm Dry Circulatory - Right Pulses Dorsalis Pedis 1 Scale (0,1,2,3,4,d) Circulatory - Left Pulses Dorsalis Pedis 1 Scale (0,1,2,3,4,d) Circulatory - Lower Extremities Color Lower Right Color Lower Left Normal Normal Neurological State Drowsy Moves all extremities Respiration - General Respiration Rate SpO2 (%) (B/min) 14 100 Chronological Log Time Study Chronological Log 14:40:54 Second procedure commenced: BiV ICD upgrade 14:40:55 Anesthesia remains at bedside and in charge of patient's care. LMA remains in place. 14:41:35 2% CHLORHEXIDINE GLUCONATE WASH AND NASAL SWIPE DONE PRIOR TO PROCEDURE. 14:41:46 Bovie ground pad remains in place to left thigh 14:42:35 Left Upper Chest Prepped Times Two. First Sponge And Instrument Count Done by Kendell Walker, RT(R). 14:54:40 Hypo's: 3, Sponges: 20, Bovie/scratch: 1 Sutures: 10, Blades: 1, Instruments: 26, Syveck Patches: ~SYVECK PATCH~ verified with BL 14:55:26 A sterile drape was applied after a 5 minute drying time. 08/21/2017 4:30:26 PM Financial #: [id number] 5 of 8 Patient Name: NICHELLE NASCIMENTO Study #: [id number] Initial MD: Leonel Myrick Date of : 1940 Study Date: 08/21/2017 Time Out. Correct patient, procedure, procedure equipment, site and side verified with physicia n present. Time 15:07:24 concurred by MD, individual staff and UNIT MANAGER. Time Out #2 - Consents verified, patient in correct position, all results are labled and displa yed, safety precautions 15:07:25 taken, antibiotics administered. Time out concurred by MD, individual staff and UNIT MANAGER in procedu re 15:07:26 Case Start 15:07:28 40 mL 2% XYLOCAINE given by Leonel Myrick in Left shoulder via Subcutaneous. Ordered by Leonel Sousa. 15:08:03 Surgical Incision Made. 15:09:09 Incremental Ventricular Pacing set per Dr. Myrick. 15:10:30 A pocket was created at the Lt. upper chest. 15:13:13 Vascular access was obtained in the Subclav. Vein (Lft. 15:13:19 Guidewire inserted 15:14:48 A 6fr sheath dilator was inserted over the wire. A LIVEWIRE, QUAD, MED SWEEP FR 6 was advanced via Subclav. Vein (Lft and placed in the CS. Plac ement was 15:17:22 visually confirmed under fluoroscopy. 15:18:47 The CS was manually injected with 10 cc's of contrast. OMNIPAQUE, 350 MG, 50ML 50ML used. 15:19:43 Guidewire out 15:20:01 A WIRE, ASAHI PROWATER 180CM 180CM was inserted via Subclav. Vein (Lft. 15:22:51 A LEAD, ATTAIN PERFORMA STRAIGHT, 88CM 88CM was inserted and positioned in the CS/LV. 15:23:06 Lead placement verified under fluoroscopy 15:24:09 Connecting the CS lead. 15:25:05 Pacing stopped 15:26:53 The CS/LV lead impedance and threshold is being tested. 15:28:34 Prowater wire removed 15:29:07 A new WIRE, ASAHI PROWATER 180CM 180CM was inserted via Subclav. Vein (Lft. 15:31:41 The CS/LV Lead Was Repositioned. 15:32:17 Lead placement verified under fluoroscopy 15:32:32 The CS/LV lead impedance and threshold is being tested. 15:33:23 Prowater wire was removed 15:36:23 A WIRE, ASAHI PROWATER 180CM 180CM was inserted via Subclav. Vein (Lft. 15:37:01 The CS/LV Lead Was Repositioned. 15:38:04 The CS/LV lead impedance and threshold is being tested. 15:39:20 Prowater wire out. 15:40:47 The CS/LV lead was sutured to the fascia. 15:43:19 A DEFIBRILLATOR, QUADRA ASSURA MP [id number] was connected and placed in the pocket. 15:47:11 The pocket is being closed. 15:48:[address] Avila notified case completed. Second Sponge And Instrument Count Done by Kendell Walker RT(R). 15:49:18 Hypo's: 3, Sponges: 20, Bovie/scratch: 1 Sutures: 10, Blades: 1, Instruments: 26, Syveck Patches: ~SYVECK PATCH~ verified with BL 15:50:01 The pocket was closed. 08/21/2017 4:30:26 PM Financial #: [id number] 6 of 8 Patient Name: NICHELLE NASCIMENTO Study #: [id number] Initial MD: Leonel Myrick Date of : 1940 Study Date: 08/21/2017 15:50:51 Case End (Physician broke scrub) Final Sponge And Instrument Count Done by Kendell Walker RT(R). 15:51:40 Hypo's: 3, Sponges: 20, Bovie/scratch: 1 Sutures: 10, Blades: 1, Instruments: 26, Syveck Patches: ~SYVECK PATCH~ verified with BL 15:52:31 Steri-strips and a sterile dressing applied to site. 16:01:58 Quad catheters removed under fluoroscopy 16:02:51 8 Fr sheath on left removed; pressure applied to access site. 16:04:24 BL out. MM in. 16:08:29 Sterile dressing applied to site 16:08:31 Dr. Avila here and scrubbing in. 16:12:40 Dr. Avila evaluating with fluoro again now. Pt will be scheduled in IR tomorrow. 16:16:57 LMA removed by anesthesia and supplemental oxygen applied via NC at 4l/min Assessment: Final Case, HR=80 BPM, WFUH=572/77 mmhg, Edema=None, Color=Normal, Skin = Warm, Dry Right Pulses: Shamar Ped=1 Left Pulses: Shamar Ped=1 16:18:44 Lower Right Extremities: Color=Normal Lower Left Extremities: Color=Normal Neurological: State=Drowsy, MICHEL Respiration: Resp=14 B/min, MvW8=486 % 16:23:07 Case complication noted. Pt will follow up with IR tomorrow for retrieval of FB. 16:23:34 Cine recording checked. 16:23:38 Holding Area notified of successful intervention. 16:26:24 PACU called. Spoke to Walt 16:26:29 Bedside Report will be given. 16:27:04 [facility] to [facility] 16:27:47 Implant Procedure was performed. 16:27:59 A Bivent ICD Implant . (Dual) upgrade from biv pacer 16:28:38 A sling was placed on the affected arm. 16:28:53 Defibrillator and ground pads removed. Skin intact. 16:28:57 Pt transported to PACU in stable condition via bed with UNIT MANAGER and tech accompanying. End Study - Contrast Media Used In Study Contrast Total Opened (mL) Total Used (mL) Total Wasted (mL) Omnipaque 50 10 40 08/21/2017 4:30:26 PM Financial #: [id number] 7 of 8 Patient Name: NICHELLE NASCIMENTO Study #: [id number] Initial MD: Leonel Myrick Date of : 1940 Study Date: 08/21/2017 End Study - Radiation Exposure Fluoro Time (minutes) 5.3 End Study - Patient Disposition Complications Transferred To Not [facility] Telemetry Bed 08/21/2017 4:30:26 PM Financial #: [id number]
[2017-08-21] MEDS ORDERED: *morphine SULFATE 4 MG/ML PERIprocedure ONLY ONE (16:49)
--- NOTE | 2017-08-21 17:46 | RADRPT ---
EXAM DATE: 08/21/2017 5:34 PM EDT AGE/SEX: 77 years / Male INDICATIONS: Foreign body, right groin, Port OP. CLINICAL DATA: This is the patient's initial encounter. Patient reports that signs and symptoms have been present for 1 day and indicates a pain score of 0/10. MEDICAL/SURGICAL HISTORY: None. None. COMPARISON: No prior exams available for comparison. FINDINGS: An 8 cm or greater length fragment of sheath tubing overlies the right groin region. No other foreign objects are seen. There is excreted contrast in the urinary bladder. There is mild degenerative ma ge in the hips. Pelvis is intact. Atherosclerotic vascular calcifications are noted. CONCLUSION: Vascular sheath fragment overlying the right groin region. The fragment does not appear to extend abo ve the inguinal ligament region Electronically signed by: Leandro Coles MD 08/21/2017 5:44 PM EDT
[2017-08-21] MEDS ORDERED: LORazepam 2 MG/ML VIAL IV PUSH PRN (18:00)
[2017-08-21] MEDS ORDERED: oxyCODONE/ACETAMINOPHEN 5 MG/325 MG TAB PO PRN ×2 (18:00)
[2017-08-21] MEDS ORDERED: LIDOCAINE HCL 1% 50 ML VIAL INFIL PRN (18:00)
[2017-08-21] MEDS ORDERED: ONDANSETRON HCL 4 MG/2 ML VIAL IV PUSH PRN (18:00)
[2017-08-21] MEDS ORDERED: ATROPINE SULFATE 1 MG/ML VIAL IV PUSH PRN (18:00)
[2017-08-21] MEDS ORDERED: SODIUM CHLORIDE 0.9% FLUSH 10 ML FLUSH IV FLUSH PRN (18:00)
[2017-08-21] MEDS ORDERED: BACITRACIN OINT 0.9 GM PKT TOP ONE (18:00)
[2017-08-21] MEDS ORDERED: SODIUM CHLOR 0.9% 250 ML INJ 250 ML IV PRN (18:00)
[2017-08-21] MEDS ORDERED: ONDANSETRON ODT 4 MG TAB PO PRN (18:00)
[2017-08-21] MEDS ORDERED: TEMAZEPAM 15 MG CAP PO PRN (18:00)
--- NOTE | 2017-08-21 18:05 | EKG ---
Date Performed: 08/21/2017 Time Performed: 10:56:52 PTAGE: 77 years EKG: Atrial flutter with rapid ventricular response with 2:1 A-V block. Left axis deviation RBBB with left anterior fascicular block Lateral infarct - age undetermined When compared to previous tra cing, patient has developed atrial Fibrillation, and is no longer atrially paced. The anterolateral T wave changes are largely unchanged. Clinical correlation is recommended. Abnormal ECG PREVIOUS TRACING : 03/26/2017 01.32.16 DOCTOR: Meena Scott Interpretating Date/Time 08/21/2017 18:04:49
[2017-08-21] MEDS ORDERED: HEPARIN SODIUM - IV 10,000 UNITS/10 ML VIAL ONE (18:20)
[2017-08-21] MEDS ORDERED: HEPARIN SODIUM - SQ 10,000 UNITS/ML VIAL ONE (18:21)
[2017-08-21] MEDS ORDERED: BUPIVACAINE HCL PF 0.5% 30 ML VIAL ONE (18:44)
--- NOTE | 2017-08-21 18:45 | RADRPT ---
EXAM DATE: 08/21/2017 6:21 PM EDT AGE/SEX: 77 years / Male INDICATIONS: Post pacemaker, defibrillator CLINICAL DATA: This is the patient's subsequent encounter. Patient reports that signs and symptoms h ave been present for 1 day and indicates a pain score of 0/10. MEDICAL/SURGICAL HISTORY: Cardiovascular disease. . Pacemaker. Defibrillator. Stents COMPARISON: [facility], CT CHEST W/O CONTRAST, 07/16/2017. [facility], CHEST SINGLE AP, 03/26/2017. . FINDINGS: Portable expiratory view of the chest demonstrates stable mildly enlarged cardiac silhouette with polly cification of the aorta. Left chest wall cardiac pacing device/AICD is present and biventricular lead s are in place. Patient is rotated but no pneumothorax is identified. There is a right basilar opacit y. CONCLUSION: 1. No pneumothorax is identified following pacemaker placement. 2. Stable chronic opacity at the right lung base. Electronically signed by: Leandro Rider MD 08/21/2017 6:44 PM EDT
[2017-08-21] MEDS ORDERED: ceFAZolin 2 GM/DEX PREMIX 50 ML IV ONE (19:45)
[2017-08-21 21:00] VITALS: PULSE 80
[2017-08-21] MEDS ORDERED: RIVAROXABAN 20 MG TAB PO SCH (21:00)
[2017-08-21] MEDS: SODIUM CHLORIDE 0.9% FLUSH 10 ML FLUSH IV FLUSH SCH (21:00)
[2017-08-21] MEDS ORDERED: ATORVASTATIN 80 MG TAB PO SCH (21:00)
[2017-08-21 21:02] VITALS: BP 106/70; PULSE 80; RESP 18; TEMP 97.8; O2SAT 99
--- NOTE | 2017-08-21 21:11 | MP ---
cc: Padmini Valentino MD, Slobodan MD DATE OF OPERATION: 08/21/2017 PREOPERATIVE DIAGNOSIS: Retained catheter sheath, right femoral vein. POSTOPERATIVE DIAGNOSIS: Retained catheter sheath, right femoral vein. PROCEDURE: Exploration of the right groin and removal of the catheter sheath from the right femoral vein and repair of the vein. SURGEON: Padmini Valentino MD ANESTHESIA: General. ESTIMATED BLOOD LOSS: 100 mL INDICATIONS FOR PROCEDURE: This 77-year-old gentleman underwent a defibrillator placement in the laboratory aide and electro ablation and, in the process of retrieval of the hardware, the introducer sheath was stuck in the femoral vein and could not be retrieved. Hence, the procedure. PROCEDURE IN DETAIL: The patient was prepped and draped in usual fashion and, prior to surgery, another x-ray of the right groin was obtained identifying the sheath in the right femoral vein going proximally. Incision was made obliquely deepened down to the level of the femoral vein and artery. Through the process, it is noted that the patient has a lot of scar tissue in the groin, which are mainly hard, firm lymph nodes. These are excised and then sheath is entered. Femoral artery is carefully preserved. Femoral vein is seen and there is a sheath, which is partially torn, sticking out of the vein. This one is grasped with hemostat and then a Satinsky clamp is placed onto the vein as the sheath is pulled out. A 5-0 Prolene in a [id number] controls the opening in the vein. The area now irrigated with copious amounts of saline. Meticulous hemostasis is obtained and incision closed in layers with 0 Vicryl for deep layer, superficial layer and 4-0 Monocryl for the skin. Benzoin, Steri-Strips applied. The patient tolerated the procedure well. At the end of the procedure, the patient had good proximal distal pulses. He was taken out of the operating room in stable condition. MD RAMEZ Cooper/ , 08:24 PM , 09:09 PM
[2017-08-21 22:00] VITALS: PULSE 80
[2017-08-21] MEDS: levETIRAcetam 500 MG TAB PO SCH (22:12)
[2017-08-21] MEDS: POTASSIUM CHLORIDE 20 MEQ CONTROLLED RELEASE TAB PO SCH (22:13)
[2017-08-21] MEDS: BUMETANIDE 1 MG TAB PO SCH (22:13)
[2017-08-21] MEDS: ceFAZolin 2 GM PREMIX 50 ML IV SCH (22:15)
[2017-08-21] MEDS: SACUBITRIL/VALSARTAN 49 MG-51 MG TAB PO SCH (22:15)
[2017-08-21 23:00] VITALS: PULSE 80
[2017-08-22] VITALS (16 sets, daily range): BP systolic 90–111; BP diastolic 58–73; PULSE 80–91; RESP 18–20; TEMP 97.8–98.8; O2SAT 98–100
[2017-08-22 05:05] LABS: INTERNATIONAL NORMALIZED RATIO 1.5 RATIO; PROTHROMBIN TIME - PATIENT 14.9 SEC (9.8-11.6)
[2017-08-22] MEDS: ceFAZolin 2 GM PREMIX 50 ML IV SCH (05:42)
[2017-08-22] MEDS ORDERED: CEPH-460 PO (07:47)
--- NOTE | 2017-08-22 08:20 | PD.CARD.PN ---
Subjective Subjective Remarks Feeling better. Objective Medications Current Medications Medications (Trade) Dose Ordered Sig/Jaz Route Start Time Stop Time Status Last Admin (Percocet 5-325 Mg) 1 tab Q4H PRN PO 08/21/17 18:00 (Percocet 5-325 Mg) 2 tab Q4H PRN PO 08/21/17 18:00 08/21/17 22:14 (Ativan Inj) 0.5 mg UNSCH PRN IV PUSH 08/21/17 18:00 08/22/17 17:59 (Atropine Inj) 0.5 mg UNSCH PRN IV PUSH 08/21/17 18:00 Sodium Chloride 250 ml @ 500 mls/hr ONCE PRN IV 08/21/17 18:00 08/22/17 17:59 (Zofran Odt) 4 mg Q4H PRN PO 08/21/17 18:00 (Xylocaine 1% Inj (50 ml)) 10 ml UNSCH PRN INFIL 08/21/17 18:00 08/22/17 17:59 Cefazolin Sodium/ Dextrose 50 ml @ 100 mls/hr Q8H IV 08/21/17 22:00 08/22/17 14:29 08/22/17 05:42 (Restoril) 15 mg HS PRN PO 08/21/17 18:00 (NS Flush) 2 ml BID IV FLUSH 08/21/17 21:00 08/21/17 21:00 (NS Flush) 2 ml UNSCH PRN IV FLUSH 08/21/17 18:00 (Lipitor) 80 mg HS PO 08/21/17 21:00 08/21/17 22:12 (Bumetanide) 2 mg BID PO 08/21/17 21:00 08/21/17 22:13 (Ferrous Sulfate) 325 mg DAILY PO 08/22/17 09:00 (Keppra) 500 mg BID PO 08/21/17 21:00 08/21/17 22:12 (Toprol Xl) 150 mg DAILY PO 08/22/17 09:00 (KCl) 20 meq Q12HR PO 08/21/17 21:00 08/21/17 22:13 (Xarelto) 20 mg HS PO 08/21/17 21:00 08/21/17 21:00 (Entresto 49-51 Mg) 1 tab BID PO 08/21/17 21:00 08/21/17 22:15 (Theragran) 1 tab DAILY PO 08/22/17 09:00 (Protonix) 20 mg DAILY PO 08/22/17 09:00 ([facility] Information) ALL NURSING DEPARTME... UNSCH PRN .XX 08/21/17 16:30 08/22/17 16:29 ([facility] Nursing Information) ALL NURSING DEPARTME... UNSCH PRN .XX 08/21/17 19:55 08/22/17 19:54 Vital Signs / I&O Vital Signs Date Time Temp Pulse Resp B/P (MAP) Pulse Ox O2 Delivery O2 Flow Rate FiO2 08/22/17 06:00 80 08/22/17 05:00 80 08/22/17 04:00 80 08/22/17 03:10 97.9 80 20 90/58 (69) 100 08/22/17 03:00 80 08/22/17 02:00 80 08/22/17 01:00 80 08/22/17 00:11 97.8 80 18 111/73 (86) 100 08/22/17 00:00 80 08/21/17 23:21 20 08/21/17 23:19 20 08/21/17 23:00 80 08/21/17 22:00 80 08/21/17 21:02 97.8 80 18 106/70 (82) 99 08/21/17 21:00 80 08/21/17 20:30 80 14 105/62 (76) 97 Nasal Cannula 2 08/21/17 20:30 98.1 08/21/17 20:15 80 17 103/64 (77) 98 Nasal Cannula 2 08/21/17 20:00 80 13 106/63 (77) 99 Nasal Cannula 2 08/21/17 19:54 98.5 80 14 110/67 (81) 99 Nasal Cannula 2 08/21/17 18:00 80 17 98/61 (73) 100 Nasal Cannula 2 08/21/17 17:45 80 16 103/60 (74) 100 Nasal Cannula 2 08/21/17 17:30 80 14 100/58 (72) 100 Nasal Cannula 2 08/21/17 17:15 80 14 100/56 (71) 100 Nasal Cannula 2 08/21/17 17:00 80 18 96/55 (69) 100 Nasal Cannula 2 08/21/17 16:45 80 22 101/53 (69) 100 Nasal Cannula 2 08/21/17 16:38 98.3 80 22 104/54 (71) 99 Nasal Cannula 2 08/21/17 10:55 97.8 109 18 116/76 (89) 95 I/O 08/21/17 08/21/17 08/21/17 08/22/17 08/22/17 08/22/17 07:00 15:00 23:00 07:00 15:00 23:00 Intake Total 1250 ml 290 ml Output Total 120 ml Balance 1130 ml 290 ml Intake Oral 240 ml IV Total 50 ml 50 ml Other 1200 ml Output Estimated Blood Loss 120 ml # Voids 0 # Bowel Movements 0 Physical Exam GENERAL: Well-nourished, well-developed patient. SKIN: Warm and dry. Left chest wall incision and Right groin incision well approximated without erythema. Scant amount of sanguinous drainage seen on right groin site. HEAD: Normocephalic. EYES: No scleral icterus. No injection or drainage. NECK: Supple, trachea midline. No JVD or lymphadenopathy. CARDIOVASCULAR: Regular rate and rhythm without murmurs, gallops, or rubs. RESPIRATORY: Breath sounds equal bilaterally. No accessory muscle use. GASTROINTESTINAL: Abdomen soft, non-tender, nondistended. EXTREMITIES: No cyanosis, or edema. NEUROLOGICAL: Awake, alert, and oriented x 3. Non-focal. Laboratory Laboratory Tests Test 08/21/17 11:20 08/22/17 04:16 White Blood Count 7.6 TH/MM3 Red Blood Count 4.21 MIL/MM3 Hemoglobin 13.4 GM/DL Hematocrit 39.7 % Mean Corpuscular Volume 94.2 FL Mean Corpuscular Hemoglobin 31.9 PG Mean Corpuscular Hemoglobin Concent 33.9 % Red Cell Distribution Width 14.3 % Platelet Count 124 TH/MM3 Mean Platelet Volume 7.7 FL Neutrophils (%) (Auto) 80.0 % Lymphocytes (%) (Auto) 10.4 % Monocytes (%) (Auto) 8.7 % Eosinophils (%) (Auto) 0.5 % Basophils (%) (Auto) 0.4 % Neutrophils # (Auto) 6.1 TH/MM3 Lymphocytes # (Auto) 0.8 TH/MM3 Monocytes # (Auto) 0.7 TH/MM3 Eosinophils # (Auto) 0.0 TH/MM3 Basophils # (Auto) 0.0 TH/MM3 CBC Comment DIFF FINAL Differential Comment Prothrombin Time 11.4 SEC 14.9 SEC Prothromb Time International Ratio 1.1 RATIO 1.5 RATIO Activated Partial Thromboplast Time 24.7 SEC 34.2 SEC Blood Urea Nitrogen 23 MG/DL Creatinine 1.46 MG/DL Random Glucose 134 MG/DL Calcium Level 8.6 MG/DL Sodium Level 140 MEQ/L Potassium Level 3.9 MEQ/L Chloride Level 103 MEQ/L Carbon Dioxide Level 27.5 MEQ/L Anion Gap 10 MEQ/L Estimat Glomerular Filtration Rate 47 ML/MIN Imaging Last Impressions Pelvis X-Ray 08/21/17 0000 Signed Impressions: CONCLUSION: Vascular sheath fragment overlying the right groin region. The fragment does no t appear to extend above the inguinal ligament region Chest X-Ray 08/21/17 0000 Signed Impressions: CONCLUSION: 1. No pneumothorax is identified following pacemaker placement. 2. Stable chronic opacity at the right lung base. Assessment and Plan Problem List: (1) S/P AV christiana ablation ICD Codes: Z98.890 - Other specified postprocedural states Plan: Recurrent atrial fibrillation despite medication and several ablations. AV node ablation with BiV ICD implantation performed. Stable for discharge home once cleared by vascular surgery (2) Paroxysmal atrial fibrillation ICD Codes: I48.0 - Paroxysmal atrial fibrillation Plan: Recurrent status post multiple ablations and optimal medical management. (3) S/P biventricular cardiac pacemaker procedure ICD Codes: Z95.0 - Presence of cardiac pacemaker Plan: Upgrade to BiV ICD status post AV node ablation for management of chronic , recalcitrant atrial fibrillation. Sheath retention and right groin necessitating intervention by vascular surgery. She extracted, groin site stable. Stable for discharge from EP standpoint once cleared by vascular surgery per my discussion with Dr. Myrick. Discussed with patient, RN, Dr. Myrick. Tona Rowland Aug 22, 2017 08:20
[2017-08-22] MEDS ORDERED: FERROUS SULFATE 325 MG (65 MG ELEMENTAL IRON) TAB PO SCH (09:00)
[2017-08-22] MEDS: SODIUM CHLORIDE 0.9% FLUSH 10 ML FLUSH IV FLUSH SCH (09:00)
[2017-08-22] MEDS: BUMETANIDE 1 MG TAB PO SCH (09:00)
[2017-08-22] MEDS ORDERED: PANTOPRAZOLE SOD 20 MG DELAYED RELEASE TAB PO SCH (09:00)
[2017-08-22] MEDS ORDERED: METOPROLOL SUCCINATE 50 MG EXTENDED RELEASE TAB PO SCH (09:00)
[2017-08-22] MEDS ORDERED: MULTIVITAMIN TAB PO SCH (09:00)
[2017-08-22] MEDS: POTASSIUM CHLORIDE 20 MEQ CONTROLLED RELEASE TAB PO SCH (10:57)
[2017-08-22] MEDS: levETIRAcetam 500 MG TAB PO SCH (10:58)
[2017-08-22] MEDS: SACUBITRIL/VALSARTAN 49 MG-51 MG TAB PO SCH (10:58)
--- NOTE | 2017-08-22 16:23 | EKG ---
Date Performed: 08/22/2017 Time Performed: 05:45:32 PTAGE: 77 years EKG: Electronic ventricular paced rhythm Since previous tracing, no significant change noted Abn ormal ECG PREVIOUS TRACING : 08/21/2017 20.18 DOCTOR: Key Tapia Interpretating Date/Time 08/22/2017 16:22:09
--- NOTE | 2017-08-22 16:23 | EKG ---
Date Performed: 08/21/2017 Time Performed: 20:18:28 PTAGE: 77 years EKG: ELECTRONIC VENTRICULAR PACEMAKER ABNORMAL RHYTHM ECG Compared to PREVIOUS TRACING , there is now evidence of a paced rhythm. PREVIOUS TRACIN08/21/2017 10.56 DOCTOR: Key Tapia Interpretating Date/Time 08/22/2017 16:21:44
== END 2017-08-22 12:56 | disposition home or self-care (01) ==
LOC: HDOC 09:50 → HDIC 09:51 → HCIS 20:55 → HDOC 08-22 12:56
PROVIDERS: ATTEND Internal Medicine Interventional Cardiology
DX: Z45.02 Encounter for adjustment and management of automatic implantable cardiac defibrillator (principal); T82.598A Other mechanical complication of other cardiac and vascular devices and implants, initial encounter; I50.9 Heart failure, unspecified; I48.0 Paroxysmal atrial fibrillation; I42.9 Cardiomyopathy, unspecified; I47.2 Ventricular tachycardia; I45.10 Unspecified right bundle-branch block; I25.10 Atherosclerotic heart disease of native coronary artery without angina pectoris; I13.0 Hypertensive heart and chronic kidney disease with heart failure and stage 1 through stage 4 chronic kidney disease, or unspecified chronic kidney disease; E10.22 Type 1 diabetes mellitus with diabetic chronic kidney disease; N18.9 Chronic kidney disease, unspecified; E78.5 Hyperlipidemia, unspecified; R56.9 Unspecified convulsions; Z79.84 Long term (current) use of oral hypoglycemic drugs; Z79.01 Long term (current) use of anticoagulants
CPT/HCPCS: 01260; 33224; 35226; 71045; 72170; 80048; 82948; 85025; 85610; 85730; 86850; 86900; 86901; 88300; 93005; 93613; 93620; 93623; 93650; C1730; C1732; C1769; C1882; C1900; C2630; J0690; J1644; J2270; J2370; J2405; J3370; J7050